=== PATIENT | female | born 1935 | race Caucasian/White ===

== ENCOUNTER 2018-09-15 01:44 | Outpatient (CLI) | payer MEDICARE, SELFPAY ==
[2018-09-15 07:38] LABS: Hemoglobin A1C 10.7 % (4.5-6.2)
[2018-09-15 07:53] LABS: Microalb ug/mg Crea 15.8 ug/mg Cr
== END 2018-09-15 02:04 ==
PROVIDERS: PCP Family Medicine; Visit Provider Family Medicine
DX: E11.9 Type 2 diabetes mellitus without complications (principal)
CPT/HCPCS: 36415; 82043; 82570; 83036

== ENCOUNTER 2019-01-22 10:18 | Outpatient (CLI) | payer MEDICARE, SELFPAY ==
[2019-01-22 12:20] LABS: Hemoglobin A1C 11.6 % (4.5-6.2)
[2019-01-22 12:50] LABS: Anion Gap 8.3 mmol/L (3-11); BUN 18 mg/dL (7-18); CO2 30.7 mmol/L (21.0-32.0); CREATININE 0.83 mg/dL (0.55-1.02); Calcium 9.2 mg/dL (8.5-10.1); Chloride 100 mmol/L (98-107); Glucose 227 mg/dL (70-100); Potassium 4.7 mmol/L (3.5-5.1); Sodium 139 mmol/L (136-145)
== END 2019-01-22 10:38 ==
PROVIDERS: PCP Family Medicine; Visit Provider Family Medicine
DX: R73.9 Hyperglycemia, unspecified (principal); I10 Essential (primary) hypertension
CPT/HCPCS: 36415; 80048; 83036

== ENCOUNTER 2019-05-13 01:44 | Outpatient (CLI) | payer MEDICARE, SELFPAY ==
[2019-05-13 08:18] LABS: Hemoglobin A1C 11.6 % (4.5-6.2)
== END 2019-05-13 02:04 ==
PROVIDERS: PCP Family Medicine; Visit Provider Family Medicine
DX: E11.9 Type 2 diabetes mellitus without complications (principal)
CPT/HCPCS: 36415; 83036

== ENCOUNTER 2019-08-15 09:32 | Emergency (ER) | payer MEDICARE, SELFPAY ==
[2019-08-15] VITALS (33 sets, daily range): BP systolic 97–145; BP diastolic 43–109; PULSE 43–75; RESP 12–21; TEMP 36.7; O2SAT 94–98
--- NOTE | 2019-08-15 10:03 | ED.GENADUL_ITS ---
Discharge Plan Disposition Patient Disposition: [facility] INPATIENT Condition: Serious Discharge Details Chief Complaint: Dizzy/Sync Clinical Impression: Sinus node dysfunction, Symptomatic bradycardia, Hypomagnesemia Primary Care Provider: Larry Moulton ED Provider: Larry Willoughby Home Meds and New Rx's Prescriptions: No Action (DME) blood-glucose meter [OneTouch Ultra2 Meter] kit See Dose Instructions .ROUTE .MEDSUPPLY Qty: 1 RF: 0 metformin 1,000 mg tablet 1,000 mg PO BID Qty: 180 RF: 4 (DME) lancets [Prodigy Lancets] 1 EACH misc 1 ea Miscellaneous BID Qty: 100 RF: 6 (DME) lancets [OneTouch Delica Lancets] 1 EACH misc 1 ea Miscellaneous BID Qty: 100 RF: 4 (DME) OneTouch Ultra Test strip 1 ea Miscellaneous BID Qty: 100 RF: 4 simvastatin [Zocor] 40 mg tablet 40 mg PO DAILY Qty: 90 RF: 4 paroxetine HCl [Paxil] 20 mg tablet 20 mg PO DAILY Qty: 90 RF: 4 naproxen sodium [Aleve] 220 MG tablet 1 tab PO BID PRN PRNQty: 0 RF: 0 albuterol sulfate [Ventolin HFA] 60 PUFF HFA aerosol inhaler 2 puff Inhalation Q4H PRN PRNQty: 1 RF: 0 lorazepam 0.5 MG tablet 0.5 mg PO BID PRN PRN (Reason: Anxiety) Qty: 3 RF: 0 Medical Decision Making 10:08 --84-year-old female with multiple medical problems presents after brief episode of unprovoked shortness of breath that has since resolved and then sensation of abnormal heartbeat here in the emergency department. Patient is currently hemodynamically stable and without complaint. Screening ECG was reviewed and interpreted by me: Sinus rhythm with a first- degree AV block, AZ interval 252, normal axis, no STEMI, nondiagnostic. black leather buffer rhythm strip from symptomatic episode was reviewed and interpreted by me: P waves C's, suspect SA brian dysfunction, slightly wider QRS complex noted at a rate of 42bpm -suspect junctional escape rhythm, and then return of normal sinus rhythm shortly thereafter at a rate of 60bpm. Plan to check labs to assess thyroid and for electrolyte abnormalities. Pacer pads have been placed on the patient. --Chest x-ray was reviewed and interpreted by radiology: Opacity in the medial right base may represent atelectasis or pneumonia. Patient is afebrile, has no cough and no leukocytosis. I do not believe she has pneumonia. --I spoke with Dr. Beal -discussed ED presentation and course, he will admit the patient. HPI General Mode of arrival: ambulatory . Date/Time Provider Initiated Documentation: 08/15/19 09:33 . Limitations to Documentation: no limitations . Information obtained by: patient . HPI Narrative: 84yo f with history of diabetes, hypertension, note of ventricular arrhythmia in the past, heart murmur, anemia, asthma, history of CVA, osteoarthritis, here with chief complaint of shortness of breath. Patient notes that she suddenly felt short of breath while at rest. This occurred just prior to arrival. Symptoms were severe. She notes she sat down on her porch and symptoms improved. She had no associated chest pain during the episode. She does note that yesterday she felt nauseous at one point while on a bus. That episode resolved and she was feeling well last night and earlier this morning. She is asymptomatic at this time although does note that when she first got here she experienced an odd sensation in her chest like her heart was not going to beat - this episode was captured on gaming table operator by nursing. Patient is currently asymptomatic and feels well. Related Data Home Medications Medication Instructions Recorded Confirmed naproxen sodium [Aleve] 1 tab PO BID PRN PRN #0 11/30/13 08/15/19 albuterol sulfate [Ventolin HFA] 2 puff INHALATION Q4H PRN PRN #1 04/25/14 08/15/19 inh lancets [Prodigy Lancets] #100 ea 08/17/15 06/26/19 lancets [Onetouch Delica] #100 ea 03/22/16 06/26/19 lorazepam 0.5 mg PO BID PRN PRN #3 tab 05/29/16 08/15/19 metformin 1,000 mg tablet 1,000 mg PO BID #180 tab-cap 09/19/18 08/15/19 blood-glucose meter #1 each 01/22/19 06/26/19 blood sugar diagnostic #100 strip 03/04/19 06/26/19 paroxetine HCl 20 mg tablet 20 mg PO DAILY #90 tab 05/05/19 08/15/19 simvastatin 40 mg tablet 40 mg PO DAILY #90 tab 05/05/19 08/15/19 Previous Rx's Medication Instructions Recorded naproxen sodium [Aleve] 1 tab PO BID PRN PRN #0 11/30/13 albuterol sulfate [Ventolin HFA] 2 puff INHALATION Q4H PRN PRN #1 04/25/14 inh lorazepam 0.5 mg PO BID PRN PRN #3 tab 05/29/16 metformin 1,000 mg tablet 1,000 mg PO BID #180 tab-cap 09/19/18 blood-glucose meter #1 each 01/22/19 blood sugar diagnostic #100 strip 03/04/19 paroxetine HCl 20 mg tablet 20 mg PO DAILY #90 tab 05/05/19 simvastatin 40 mg tablet 40 mg PO DAILY #90 tab 05/05/19 Allergies Allergy/AdvReac Type Severity Reaction Status Date / Time iodine Allergy Unknown Unverified 08/15/19 09:40 General Stated Complaint: Dizzy/Sync RASHEL: 3 Review of Systems Review of Systems ROS Unobtainable: All systems reviewed & are unremarkable except as noted in HPI and below Constitutional Constitutional: Denies body ache(s) and Denies fever(s) Cardiovascular Cardiovascular: Reports as per HPI, Denies rapid heart rate and Denies leg edema Respiratory Respiratory: Reports as per HPI and Denies cough PFSH Medical History Rupture of tendon of biceps, long head (Resolved 10/31/07) Surgical History Abdominal hysterectomy Bilateral salpingectomy with oophorectomy Biopsy of breast (~2003) left;neg Cholecystectomy History of bilateral salpingo-oophorectomy (Inactive) History of Surgical Procedure (Inactive) a. Cholecystectomy. b. Lysis of adhesions. c. Hysterectomy. d. Oophorectomy. Status post abdominal hysterectomy (Inactive) Status post breast biopsy (Inactive) Status post cholecystectomy (Inactive) Social History Smoking/Tobacco Use Status: Former Tobacco Use Alcohol Intake: never Drug use: Never Do you feel safe at home: Yes Exam Const General: cooperative and no acute distress HENMT Mouth: moist mucous membranes Eyes Conjunctivae: normal conjunctivae Sclera: normal sclerae Neck Neck: trachea midline, supple and no JVD Resp Auscultation: clear to auscultation bilaterally, no rales, no rhonchi and no wheezes Cardio Jugular venous pressure: no JVD Rate: regular rate and not tachycardic Rhythm: regular rhythm Heart Sounds: murmur systolic II/ GI Palpation: soft, not firm, no guarding, no masses, not rigid and nontender Skin General skin exam: no rashes or lesions noted Neuro General: alert, awake, oriented x3 and tone normal Extrem General: no calf tenderness bilaterally and no edema Psych Appearance: grossly normal Mental Status: mental status grossly normal Course Vital Signs Vital signs: Vital Signs Temperature 36.7 C 08/15/19 09:33 Pulse 75 08/15/19 09:33 Respiratory Rate 21 08/15/19 09:33 Blood Pressure 144/59 H 08/15/19 09:33 Pulse Oximetry 97 08/15/19 09:33 Temperature 36.7 C 08/15/19 09:33 Temperature Source Skin 08/15/19 09:33 Pulse 75 08/15/19 09:33 Respiratory Rate 21 08/15/19 09:33 Respiratory Effort 08/15/19 09:42 Blood Pressure 144/59 H 08/15/19 09:33 Blood Pressure Position Supine 08/15/19 09:33 Pulse Oximetry 97 08/15/19 09:33 Oxygen Delivery Method Room Air 08/15/19 09:33 Oxygen Flow Rate 0 08/15/19 09:33 Pain Level 0 08/15/19 09:33
[2019-08-15 10:22] LABS: Abs Immature Grans 0.02 k/cumm (0.0-0.09); Absolute Basophil Count 0.04 k/cumm (0.0-0.2); Absolute Eosinophil Count 0.15 k/cumm (0.0-0.7); Absolute Monocyte Count 0.43 k/cumm (0.11-0.7); Absolute Neutrophil Count 7.61 k/cumm (1.2-6.7); Basophils % 0.4; Eosinophils % 1.4; HCT 37.3 % (36.0-46.0); HGB 12.2 g/dL (12.0-15.5); Immature Grans % 0.2; Lymphocytes % 21.1; Mean Corp. HGB Concentration 32.7 g/dL (32.0-36.0); Mean Corpuscular Hemoglobin 28.6 pg (27.0-33.0); Mean Corpuscular Volume 87.6 fL (80-95); Mean Platelet Volume 9.6 fL (8.0-11.0); Monocytes % 4.1; Neutrophils % 72.8; Platelet Count 267 x1000/uL (130-400); RBC 4.26 m/cumm (4.00-5.20); RBC Distribution Width 13.8 % (11.7-14.6); White Blood Cell Count 10.45 k/cumm (4.4-10.8)
--- NOTE | 2019-08-15 10:27 | NUR.NOTE ---
10:10 patient goingin and out of junctional rhythm with heartrate dropping in the 40s. Patient is having dizziness and shortness of breath with these rhythm changes. Moved to room 1 and placed on external pacer as ordered.
[2019-08-15 10:44] LABS: ALT 19 U/L (14-59); AST 18 U/L (15-37); Albumin 3.5 g/dL (3.4-5.0); Alkaline Phosphatase 81 U/L (46-116); Anion Gap 9.8 mmol/L (3-11); BUN 21 mg/dL (7-18); Bilirubin, Total 0.3 mg/dL (0.2-1.0); CO2 26.2 mmol/L (21.0-32.0); CREATININE 1.04 mg/dL (0.55-1.02); Calcium 8.9 mg/dL (8.5-10.1); Chloride 100 mmol/L (98-107); Estimated GFR 50.73 (mL/min/1.73m2); Glucose 339 mg/dL (70-100); Magnesium 1.6 mg/dL (1.8-2.4); Potassium 4.6 mmol/L (3.5-5.1); Sodium 136 mmol/L (136-145); TSH (W/Ref FT4) 3.55 uIU/mL (0.36-3.74)
[2019-08-15 10:50] LABS: Troponin I < 0.05 ng/mL (0.00-0.06)
--- NOTE | 2019-08-15 11:20 | DI.RAD_ITS ---
SYMPTOM/DIAGNOSIS: SOB PORTABLE AP CHEST: A region of increased density in the right medial lung base could represent atelectasis or pneumonia. There is no evidence of a pneumothorax or pleural effusion. The heart is enlarged. The osseous structures are stable. Note is made of overlying EKG wires. IMPRESSION: An opacity in the medial right base could represent atelectasis or pneumonia.
[2019-08-15] MEDS: MAGNESIUM SULFATE 1 GM/100 ML BAG IVPB (11:31)
[2019-08-15] MEDS: Normal Saline Flush 10 ML SYR IVP (11:31)
--- NOTE | 2019-08-15 11:50 | DI.VRAD_ITS ---
EXAM: XR Chest, 1 View EXAM DATE/TIME: 08/15/2019 11:25 AM CLINICAL HISTORY: 84 years old, female; Shortness of breath TECHNIQUE: Imaging protocol: XR of the chest Views: 1 view. COMPARISON: CR CHEST 2 VIEWS PA,LAT 05/29/2016 9:34 AM FINDINGS: Lungs: Opacity in the medial right base may represent atelectasis or pneumonia. Pleural space: Unremarkable. No pleural effusion. No pneumothorax. Heart/Mediastinum: Cardiomegaly Bones/joints: Osseous structures are stable Other findings: Overlying EKG wires IMPRESSION: Opacity in the medial right base may represent atelectasis or pneumonia. Dictated and Authenticated by: Luis Olivares MD. Ordering:FREDA Juarez MD
== END 2019-08-15 17:55 | disposition left against medical advice (07) ==
PROVIDERS: Emergency Provider Student in an Organized Health Care Education/Training Program; PCP Family Medicine
DX: I49.2 Junctional premature depolarization (principal); E83.42 Hypomagnesemia; R06.02 Shortness of breath; E11.9 Type 2 diabetes mellitus without complications; Z79.84 Long term (current) use of oral hypoglycemic drugs; I10 Essential (primary) hypertension
CPT/HCPCS: 36415; 80053; 93005; 96365; 99285; 71045; 83735; 83880; 84443; 84484; 85025; 93010; J3475

== ENCOUNTER 2019-08-15 15:17 | Emergency (ER) | payer MEDICARE, SELFPAY ==
[2019-08-15] VITALS (29 sets, daily range): BP systolic 115–200; BP diastolic 52–97; PULSE 51–82; RESP 14–31; TEMP 36.3; O2SAT 95–98
--- NOTE | 2019-08-15 15:36 | ED.GENADUL_ITS ---
Discharge Plan Disposition Patient Disposition: RADHA DOMINGUEZ ([facility]) Condition: Stable Discharge Details Chief Complaint: Dizzy/Sync Clinical Impression: Dizziness, Vomiting, Symptomatic bradycardia Primary Care Provider: Larry Moulton ED Provider: Camila Singh Home Meds and New Rx's Prescriptions: No Action (DME) blood-glucose meter [OneTouch Ultra2 Meter] kit See Dose Instructions .ROUTE .MEDSUPPLY Qty: 1 RF: 0 metformin 1,000 mg tablet 1,000 mg PO BID Qty: 180 RF: 4 (DME) lancets [Prodigy Lancets] 1 EACH misc 1 ea Miscellaneous BID Qty: 100 RF: 6 (DME) lancets [OneTouch Delica Lancets] 1 EACH misc 1 ea Miscellaneous BID Qty: 100 RF: 4 (DME) OneTouch Ultra Test strip 1 ea Miscellaneous BID Qty: 100 RF: 4 simvastatin [Zocor] 40 mg tablet 40 mg PO DAILY Qty: 90 RF: 4 paroxetine HCl [Paxil] 20 mg tablet 20 mg PO DAILY Qty: 90 RF: 4 naproxen sodium [Aleve] 220 MG tablet 1 tab PO BID PRN PRNQty: 0 RF: 0 albuterol sulfate [Ventolin HFA] 60 PUFF HFA aerosol inhaler 2 puff Inhalation Q4H PRN PRNQty: 1 RF: 0 lorazepam 0.5 MG tablet 0.5 mg PO BID PRN PRN (Reason: Anxiety) Qty: 3 RF: 0 Discharge Data Discharge Date/Time-TO BE ENTERED AT DEPARTURE: 08/15/19 19:55 Medical Decision Making 84-year-old female with a history of diabetes, hypertension CVA, asthma, depression who presents as a return to the emergency department after she left AMA earlier today after she was admitted for what appeared to be a junctional escape rhythm on EKG and symptomatic bradycardia. She returned home this afternoon and admits to worsening dizziness, nausea and dry heaving. EKG on arrival notes a rate of 81, sinus with no acute ST ischemic changes. She had a symptomatic episode in the ER earlier today which was caught on the monitor which note a likely sinus node dysfunction with a wide QRS and a rate of 42. A junctional escape rhythm was suspected at that time. She felt better and wanted to go home and left AMA. Blood pressure 200/86, heart rate 80s, afebrile. She appears nontoxic. She has a systolic murmur, lungs clear. Will repeat labs and call hospitalist for admission. Chest x-ray done earlier today noted atelectasis or pneumonia. She has no fever, cough or shortness of breath so doubt pneumonia. Case discussed with Dr. Beal - he states per his discussion with cardiology earlier, if patient's symptoms returned, would recommend transfer to [facility] - he discussed case with Dr. Sylvester at [facility] and he accepts pt for transfer to [facility]. 1720 --labs reviewed. White blood cell count 12. Normal electrolytes. Anion gap 13. Glucose 291. Troponin negative. BNP 434. [facility] called to state they have a bed available for patient. We will plan for EMS to have pacer implants in place and to give atropine if needed in route. Patient has remained stable here while in the emergency department. Heart rate ranged between 50s to 70s. Medical Records Medical records reviewed: Yes I reviewed the patient's medical records. Lab Data Lab results reviewed: Yes I reviewed the patient's lab results. Labs: Laboratory Tests Range/Units 08/15/19 08/15/19 08/15/19 15:31 15:31 15:31 WBC (4.4-10.8) k/cumm 12.26 H RBC (4.00-5.20) m/cumm 4.80 Hgb (12.0-15.5) g/dL 13.6 Hct (36.0-46.0) % 41.3 MCV (80-95) fL 86.0 MCH (27.0-33.0) pg 28.3 MCHC (32.0-36.0) g/dL 32.9 RDW (11.7-14.6) % 13.9 Plt Count (130-400) x1000/uL 284 MPV (8.0-11.0) fL 9.2 Immature Gran % 0.2 Neutrophils % 66.4 Lymphocytes % 27.5 Monocytes % 4.9 Eosinophils % 0.8 Basophils % 0.2 Absolute Neutrophils (1.2-6.7) k/cumm 8.14 H Absolute Lymphocytes (1.2-3.4) k/cumm 3.37 Absolute Monocytes (0.11-0.7) k/cumm 0.60 Absolute Eosinophils (0.0-0.7) k/cumm 0.10 Absolute Basophils (0.0-0.2) k/cumm 0.02 Sodium (136-145) mmol/L 134 L Potassium (3.5-5.1) mmol/L 4.0 Chloride (98-107) mmol/L 96 L Carbon Dioxide (21.0-32.0) mmol/L 24.7 Anion Gap (3-11) mmol/L 13.3 H BUN (7-18) mg/dL 18 Creatinine (0.55-1.02) mg/dL 0.98 Estimated GFR/1.73 m2 (mL/min/1.73m2) 54.33 Glucose (70-100) mg/dL 291 H Calcium (8.5-10.1) mg/dL 9.5 Magnesium (1.8-2.4) mg/dL 2.0 Total Bilirubin (0.2-1.0) mg/dL 0.5 AST (15-37) U/L 20 ALT (14-59) U/L 23 Alkaline Phosphatase (46-116) U/L 85 Troponin I (0.00-0.06) ng/mL < 0.05 NT-Pro-B Natriuret Pep ( - 299) pg/mL 434 H Total Protein (6.4-8.2) g/dL 7.9 Albumin (3.4-5.0) g/dL 4.1 ECG Data Attestation: I personally reviewed and interpreted this ECG (s) as follows: Interpretation: rate of 81, sinus, first degree block CT 220, no acute ST elevation or depression, QTc 441, QRS 102. HPI General Mode of arrival: ambulatory . Date/Time Provider Initiated Documentation: 08/15/19 15:32 . Limitations to Documentation: no limitations . Information obtained by: patient . HPI Narrative: Pt is an 84yo F w/ a h/o DM, HTN, depression, HTN, arrhythmia, panic attacks who presents with dizziness and nausea since this afternoon. Patient was seen here earlier today for dizziness and admitted for a symptomatic bradycardia with concern due to a junctional escape rhythm on the monitor. She denies chest pain, shortness of breath, fever, cough, headache. She left AMA earlier and returned home and states she sat on the couch and her dizziness became much worse and she began having nausea and dry heaving. Related Data Home Medications Medication Instructions Recorded Confirmed naproxen sodium [Aleve] 1 tab PO BID PRN PRN #0 11/30/13 08/15/19 albuterol sulfate [Ventolin HFA] 2 puff INHALATION Q4H PRN PRN #1 04/25/14 08/15/19 inh lancets [Prodigy Lancets] #100 ea 08/17/15 06/26/19 lancets [Onetouch Delica] #100 ea 03/22/16 06/26/19 lorazepam 0.5 mg PO BID PRN PRN #3 tab 05/29/16 08/15/19 metformin 1,000 mg tablet 1,000 mg PO BID #180 tab-cap 09/19/18 08/15/19 blood-glucose meter #1 each 01/22/19 06/26/19 blood sugar diagnostic #100 strip 03/04/19 06/26/19 paroxetine HCl 20 mg tablet 20 mg PO DAILY #90 tab 05/05/19 08/15/19 simvastatin 40 mg tablet 40 mg PO DAILY #90 tab 05/05/19 08/15/19 Previous Rx's Medication Instructions Recorded naproxen sodium [Aleve] 1 tab PO BID PRN PRN #0 11/30/13 albuterol sulfate [Ventolin HFA] 2 puff INHALATION Q4H PRN PRN #1 04/25/14 inh lorazepam 0.5 mg PO BID PRN PRN #3 tab 05/29/16 metformin 1,000 mg tablet 1,000 mg PO BID #180 tab-cap 09/19/18 blood-glucose meter #1 each 01/22/19 blood sugar diagnostic #100 strip 03/04/19 paroxetine HCl 20 mg tablet 20 mg PO DAILY #90 tab 05/05/19 simvastatin 40 mg tablet 40 mg PO DAILY #90 tab 05/05/19 Allergies Allergy/AdvReac Type Severity Reaction Status Date / Time iodine Allergy Unknown Unverified 08/15/19 09:40 General Stated Complaint: Dizzy/Sync RASHEL: 2 Review of Systems Review of Systems ROS Unobtainable: All systems reviewed & are unremarkable except as noted in HPI and below Constitutional Constitutional: Reports as per HPI, Denies chills and Denies fever(s) Eyes Eyes: Denies blurry vision ENT Ears, Nose, Mouth, and Throat: Reports dizziness, Denies sore throat and Denies throat swelling Cardiovascular Cardiovascular: Denies chest pain and Denies dyspnea Respiratory Respiratory: Denies cough and Denies dyspnea Gastrointestinal Gastrointestinal: Denies abdominal pain, Denies diarrhea, Reports nausea and Denies vomiting Genitourinary Genitourinary: Denies hematuria and Denies dysuria Musculoskeletal Musculoskeletal: Denies back pain and Denies numbness Integumentary/Breasts Skin/Breast: Denies lesions and Denies rash Neurologic Neurologic: Reports dizziness, Denies focal weakness and Denies numbness Allergic/Immunologic Allergic/Immunologic: Denies throat swelling [facility] Medical History Rupture of tendon of biceps, long head (Resolved 10/31/07) Surgical History Abdominal hysterectomy Bilateral salpingectomy with oophorectomy Biopsy of breast (~2003) left;neg Cholecystectomy History of bilateral salpingo-oophorectomy (Inactive) History of Surgical Procedure (Inactive) a. Cholecystectomy. b. Lysis of adhesions. c. Hysterectomy. d. Oophorectomy. Status post abdominal hysterectomy (Inactive) Status post breast biopsy (Inactive) Status post cholecystectomy (Inactive) Social History Smoking/Tobacco Use Status: Former Tobacco Use Alcohol Intake: never Drug use: Never Do you feel safe at home: Yes Exam Const General: cooperative, healthy appearing and no acute distress HENPA Head: normal to inspection Face and sinus: normal facial exam Eyes General: appearance normal, both eyes and all related structures Pupils: PERRL EOM: EOM intact bilaterally Neck Neck: normal visual inspection and No submandibular swelling Lymphatic: no lymphadenopathy noted Chest Chest: normal inspection of the chest and no tenderness Resp Effort & Inspection: normal respiratory effort and able to speak in complete sentences Auscultation: clear to auscultation bilaterally Cardio Rate: regular rate Rhythm: regular rhythm Heart Sounds: murmur GI Inspection: normal to inspection Palpation: soft, not firm, not rigid and nontender Auscultation: normal bowel sounds Back/Spine/Pelvis Thoracic/Lumbar Spine: thoracic and lumbar spine normal to inspection Pelvis: no pain with anterior-posterior compression Skin General skin exam: no rashes or lesions noted Neuro General: alert, awake and oriented x3 Cognition: normal cognition Speech: speech normal Motor: muscle tone normal throughout Sensory Exam: no sensory deficits noted Extrem General: normal to inspection, full ROM, normal capillary refill, no calf tenderness bilaterally and no edema Psych Appearance: grossly normal Mental Status: mental status grossly normal Speech and Movement: speech and movement normal Affect: normal affect Course Vital Signs Vital signs: Vital Signs Temperature 97.3 F L 08/15/19 15:22 Pulse 82 08/15/19 15:22 Respiratory Rate 16 08/15/19 15:22 Blood Pressure 200/86 H 08/15/19 15:22 Pulse Oximetry 98 08/15/19 15:22 Temperature 97.3 F L 08/15/19 15:22 Temperature Source Skin 08/15/19 15:22 Pulse 82 08/15/19 15:22 Respiratory Rate 16 08/15/19 15:22 Respiratory Effort Non-Labored 08/15/19 15:32 Blood Pressure 200/86 H 08/15/19 15:22 Blood Pressure Position Supine 08/15/19 15:22 Pulse Oximetry 98 08/15/19 15:22 Oxygen Delivery Method Room Air 08/15/19 15:22 Oxygen Flow Rate 0 08/15/19 15:22
[2019-08-15 15:59] LABS: Abs Immature Grans 0.03 k/cumm (0.0-0.09); Absolute Lymphocyte Count 3.37 k/cumm (1.2-3.4); Basophils % 0.2; Eosinophils % 0.8; HCT 41.3 % (36.0-46.0); HGB 13.6 g/dL (12.0-15.5); Immature Grans % 0.2; Lymphocytes % 27.5; Mean Corp. HGB Concentration 32.9 g/dL (32.0-36.0); Mean Corpuscular Hemoglobin 28.3 pg (27.0-33.0); Mean Platelet Volume 9.2 fL (8.0-11.0); Monocytes % 4.9; Neutrophils % 66.4; Platelet Count 284 x1000/uL (130-400); RBC Distribution Width 13.9 % (11.7-14.6); White Blood Cell Count 12.26 k/cumm (4.4-10.8)
--- NOTE | 2019-08-15 16:00 | NUR.NOTE ---
Nursing Note: Admitting MD at bedside to assess patient.
[2019-08-15 16:04] LABS: Absolute Basophil Count 0.02 k/cumm (0.0-0.2); Absolute Neutrophil Count 8.14 k/cumm (1.2-6.7)
[2019-08-15 16:12] LABS: ALT 23 U/L (14-59); AST 20 U/L (15-37); Albumin 4.1 g/dL (3.4-5.0); Alkaline Phosphatase 85 U/L (46-116); BUN 18 mg/dL (7-18); Bilirubin, Total 0.5 mg/dL (0.2-1.0); CREATININE 0.98 mg/dL (0.55-1.02); Calcium 9.5 mg/dL (8.5-10.1); Estimated GFR 54.33 (mL/min/1.73m2); Glucose 291 mg/dL (70-100); Total Protein 7.9 g/dL (6.4-8.2)
[2019-08-15 16:18] LABS: Troponin I < 0.05 ng/mL (0.00-0.06)
[2019-08-15 16:22] LABS: NT-proBNP 434 pg/mL
[2019-08-15 16:26] LABS: Anion Gap 13.3 mmol/L (3-11); CO2 24.7 mmol/L (21.0-32.0); Chloride 96 mmol/L (98-107); Sodium 134 mmol/L (136-145)
== END 2019-08-15 19:55 | disposition short-term general hospital (02) ==
PROVIDERS: Emergency Provider Physician Assistant; PCP Family Medicine
DX: R42 Dizziness and giddiness (principal); R11.2 Nausea with vomiting, unspecified; I49.9 Cardiac arrhythmia, unspecified; E11.9 Type 2 diabetes mellitus without complications; Z79.84 Long term (current) use of oral hypoglycemic drugs; I10 Essential (primary) hypertension
CPT/HCPCS: 36415; 80053; 93005; 99285; 83735; 83880; 84484; 85025; 93010

== ENCOUNTER 2019-08-23 17:29 | Emergency (ER) | payer MEDICARE, SELFPAY ==
[2019-08-23] VITALS (45 sets, daily range): BP systolic 99–123; BP diastolic 37–54; PULSE 58–76; RESP 9–23; TEMP 36.6; O2SAT 93–98
[2019-08-23 18:05] LABS: Abs Immature Grans 0.02 k/cumm (0.0-0.09); Absolute Basophil Count 0.03 k/cumm (0.0-0.2); Absolute Eosinophil Count 0.23 k/cumm (0.0-0.7); Absolute Lymphocyte Count 3.46 k/cumm (1.2-3.4); Absolute Monocyte Count 0.84 k/cumm (0.11-0.7); Absolute Neutrophil Count 7.96 k/cumm (1.2-6.7); Basophils % 0.2; Eosinophils % 1.8; HCT 35.4 % (36.0-46.0); HGB 11.7 g/dL (12.0-15.5); Immature Grans % 0.2; Lymphocytes % 27.6; Mean Corp. HGB Concentration 33.1 g/dL (32.0-36.0); Mean Corpuscular Hemoglobin 28.4 pg (27.0-33.0); Mean Corpuscular Volume 85.9 fL (80-95); Mean Platelet Volume 9.2 fL (8.0-11.0); Monocytes % 6.7; Neutrophils % 63.5; Platelet Count 264 x1000/uL (130-400); RBC 4.12 m/cumm (4.00-5.20); RBC Distribution Width 13.7 % (11.7-14.6); White Blood Cell Count 12.53 k/cumm (4.4-10.8)
--- NOTE | 2019-08-23 18:07 | ED.GENADUL_ITS ---
Discharge Plan Disposition Patient Disposition: HOME Condition: Stable Discharge Details Chief Complaint: Dizzy/Sync Clinical Impression: Atypical chest pain, Shortness of breath, Vertigo Primary Care Provider: Larry Moulton ED Provider: Karan Ferrell Home Meds and New Rx's Prescriptions: No Action (DME) blood-glucose meter [OneTouch Ultra2 Meter] kit See Dose Instructions .ROUTE .MEDSUPPLY Qty: 1 RF: 0 metformin 1,000 mg tablet 1,000 mg PO BID Qty: 180 RF: 4 (DME) lancets [Prodigy Lancets] 1 EACH misc 1 ea Miscellaneous BID Qty: 100 RF: 6 (DME) lancets [OneTouch Delica Lancets] 1 EACH misc 1 ea Miscellaneous BID Qty: 100 RF: 4 (DME) OneTouch Ultra Test strip 1 ea Miscellaneous BID Qty: 100 RF: 4 simvastatin [Zocor] 40 mg tablet 40 mg PO DAILY Qty: 90 RF: 4 paroxetine HCl [Paxil] 20 mg tablet 20 mg PO DAILY Qty: 90 RF: 4 naproxen sodium [Aleve] 220 MG tablet 1 tab PO BID PRN PRNQty: 0 RF: 0 albuterol sulfate [Ventolin HFA] 60 PUFF HFA aerosol inhaler 2 puff Inhalation Q4H PRN PRNQty: 1 RF: 0 lorazepam 0.5 MG tablet 0.5 mg PO BID PRN PRN (Reason: Anxiety) Qty: 3 RF: 0 Discharge Instructions Instructions: Chest Pain (ED), Vertigo (ED), Dyspnea (ED) Additional Instructions: Drink plenty of fluids and get plenty of rest. Follow-up with your primary care doctor this week for results of your blood cultures. Return immediately to the emergency department if you develop any fever, cough, abdominal pain or any other concerns. Discharge Data Discharge Physician: Camila Singh Medical Decision Making <Camila Singh DO - Last Filed: 08/23/19 20:35> 1820 -- 84-year-old female with history of diabetes, hypertension, depression, CVA, panic attacks who presents with 2 episodes of chest pain, shortness of breath and dizziness that last approximate 10 minutes and then resolved. She describes it as a spinning sensation. Patient was seen here last week for similar complaints and was transferred to [facility] [[email or web address]] for symptomatic bradycardia when she was found to have a possible heart block and junctional escape rhythm. DC summary from her [facility] [email or web address]] visit noted that she had no signs of bradycardia and only one episode of lightheadedness and was discharged home. She did have blood cultures which grew 1/4 with gram-positive bacilli in anaerobic bottle which was thought to be contamination. She also had an echo which noted a large mass and a follow-up cardiac MRI which did not see a mass present and was thought to be epicardial fat. EKG on arrival notes a rate of 69, sinus, first-degree block, less than [address] depression seen in 2, V3 through V6 which appears similar to previous EKG, no acute ST elevation.. No focal deficits on exam. Differential diagnosis includes arrhythmia, electrolyte abnormality, dehydration, UTI, pneumonia, vertigo, ACS. Due to patient's age and history, screening labs, chest x-ray and CT head ordered. Will give small bolus IV fluids and dose of meclizine. Labs and imaging reviewed. Troponin negative. Normal BNP. Urinalysis negative for infection. CT head and chest x-ray negative. 1999 --Case endorsed to Dr. Ferrell to follow-up on repeat troponin. Of note, patient's repeat blood cultures from MRI grew Corynebacterium in anaerobic bottle. She has no fever. Her white count is stable at 12. She has no no complaint of cough, abdominal pain, urinary symptoms. We will repeat lactate and blood cultures. If second troponin negative, and patient continues to remain asymptomatic, will plan for discharge home with follow-up with the primary care doctor this week for reevaluation and for follow-up on repeat blood cultures. Medical Records Medical records reviewed: Yes I reviewed the patient's medical records. Imaging Data Radiologic Study: Radiologist's impression: XR Chest, 2 Views Exam date and time: 08/23/2019 6:08 PM Clinical history: 84 years old, female; Other: Chest pain dizziness R/O acute disease TECHNIQUE: Imaging protocol: XR of the chest Views: 2 views. COMPARISON: SC XR PORTABLE CHEST AP 08/15/2019 2:12 PM FINDINGS: Minimal interstitial lung scarring. Mild cardiomegaly. No significant focal consolidation. No significant pleural effusion. Bony structures unremarkable for age. IMPRESSION: No evidence of acute cardiopulmonary disease. CT Head Without Contrast Exam date and time: 08/23/2019 7:19 PM Clinical history: 84 years old, female; Pain; Other: R/O acute CVA memory loss, dizziness, nausea TECHNIQUE: Imaging protocol: Computed tomography of the head without contrast. COMPARISON: CT HEAD WITHOUT CONTRAST 11/27/2013 4:35 PM FINDINGS: No evidence of hemorrhage. No mass effect. No acute intracranial abnormality. Suggestion of a soft tissue mass in the posterior nasopharynx which appears most likely unchanged from the prior examination. Exact etiology of this is uncertain. IMPRESSION: No evidence of acute intracranial process. Lab Data Lab results reviewed: Yes I reviewed the patient's lab results. ECG Data Attestation: I personally reviewed and interpreted this ECG (s) as follows: Interpretation: Rate of 69, sinus, first-degree block. T wave inversion in lead III which has been seen in previous EKG. Less than [address] depression seen in lead II, V4, V5 and V6 which appears similar to previous EKG. No acute ST elevation. <Karan Ferrell MD - Last Filed: 08/23/19 22:23> Pt remains asymptomatic on my exam and is asking to be d/c'd. Pt's lactate normal, second troponin and ecg unchanged. Given improved symptoms and asymptomatic now with negative w/u here will d/c and advised f/u with pcp within a week, return precautions given Lab Data Lab results reviewed: Yes I reviewed the patient's lab results. ECG Data Attestation: I personally reviewed and interpreted this ECG (s) as follows: Prior ECG tracings: available for review Interpretation: 2nd ekg shows sinus rhythm, rate of 64, no acute ischemic changes HPI <Camila Singh DO - Last Filed: 08/23/19 20:35> General Mode of arrival: EMS . Date/Time Provider Initiated Documentation: 08/23/19 17:30 . Limitations to Documentation: no limitations . Information obtained by: patient . HPI Narrative: Patient is an 84-year-old female with a history of diabetes, hypertension, CVA, asthma, and panic attacks who presents the ED with 2 episodes of shortness of breath, dizziness and chest pain that started while at home today this afternoon. Patient states she was sitting when the symptoms started and lasted proximate 10 minutes and then r esolved. She states she feels that the dizziness feels like a spinning sensation that is worse with movement. She also states her mouth was dry. Patient was seen here last week for dizziness, chest pain or shortness of breath and was found to have a possible junctional escape rhythm and was sent to [facility] [[email or web address]] for further evaluation. She states she was discharged home but was not given any diagnosis. Patient denies any fever, cough, vomiting, urinary symptoms. She states she has been eating and drinking well. She does admit to 2 episodes of brown loose diarrhea. Related Data Home Medications Medication Instructions Recorded Confirmed naproxen sodium [Aleve] 1 tab PO BID PRN PRN #0 11/30/13 08/23/19 albuterol sulfate [Ventolin HFA] 2 puff INHALATION Q4H PRN PRN #1 04/25/14 08/23/19 inh lancets [Prodigy Lancets] #100 ea 08/17/15 06/26/19 lancets [Onetouch Delica] #100 ea 03/22/16 06/26/19 lorazepam 0.5 mg PO BID PRN PRN #3 tab 05/29/16 08/23/19 metformin 1,000 mg tablet 1,000 mg PO BID #180 tab-cap 09/19/18 08/23/19 blood-glucose meter #1 each 01/22/19 06/26/19 blood sugar diagnostic #100 strip 03/04/19 06/26/19 paroxetine HCl 20 mg tablet 20 mg PO DAILY #90 tab 05/05/19 08/23/19 simvastatin 40 mg tablet 40 mg PO DAILY #90 tab 05/05/19 08/23/19 Previous Rx's Medication Instructions Recorded naproxen sodium [Aleve] 1 tab PO BID PRN PRN #0 11/30/13 albuterol sulfate [Ventolin HFA] 2 puff INHALATION Q4H PRN PRN #1 04/25/14 inh lorazepam 0.5 mg PO BID PRN PRN #3 tab 05/29/16 metformin 1,000 mg tablet 1,000 mg PO BID #180 tab-cap 09/19/18 blood-glucose meter #1 each 01/22/19 blood sugar diagnostic #100 strip 03/04/19 paroxetine HCl 20 mg tablet 20 mg PO DAILY #90 tab 05/05/19 simvastatin 40 mg tablet 40 mg PO DAILY #90 tab 05/05/19 Allergies Allergy/AdvReac Type Severity Reaction Status Date / Time iodine Allergy Unknown Unverified 08/23/19 18:20 General RASHEL: 2 Review of Systems <Camila Singh DO - Last Filed: 08/23/19 20:35> Review of Systems ROS Unobtainable: All systems reviewed & are unremarkable except as noted in HPI and below Constitutional Constitutional: Reports as per HPI, Denies chills and Denies fever(s) Eyes Eyes: Denies blurry vision ENT Ears, Nose, Mouth, and Throat: Reports dizziness, Denies sore throat and Denies throat swelling Cardiovascular Cardiovascular: Reports chest pain and Reports dyspnea Respiratory Respiratory: Denies cough and Reports dyspnea Gastrointestinal Gastrointestinal: Denies abdominal pain, Denies diarrhea and Denies vomiting Genitourinary Genitourinary: Denies hematuria and Denies dysuria Musculoskeletal Musculoskeletal: Denies back pain and Denies numbness Integumentary/Breasts Skin/Breast: Denies lesions and Denies rash Neurologic Neurologic: Reports dizziness, Denies focal weakness and Denies numbness Allergic/Immunologic Allergic/Immunologic: Denies throat swelling PFSH <Camila Singh DO - Last Filed: 08/23/19 20:35> Medical History Depression (Inactive) Diabetes mellitus (Inactive) Times 3 years. History of CVA (cerebrovascular accident) (Inactive 12/02/91) a. 1991. Osteoarthrosis (Inactive) both hips, right greater than left Osteopenia (Inactive) Panic attack (Inactive) Rupture of tendon of biceps, long head (Resolved 10/31/07) Surgical History Abdominal hysterectomy Bilateral salpingectomy with oophorectomy Biopsy of breast (~2003) left;neg Cholecystectomy History of bilateral salpingo-oophorectomy (Inactive) History of Surgical Procedure (Inactive) a. Cholecystectomy. b. Lysis of adhesions. c. Hysterectomy. d. Oophorectomy. Status post abdominal hysterectomy (Inactive) Status post breast biopsy (Inactive) Status post cholecystectomy (Inactive) Social History Smoking/Tobacco Use Status: Former Tobacco Use Alcohol Intake: never Drug use: Never Do you feel safe at home: Yes Do you feel safe in your relationship?: Yes Exam <Camila Singh DO - Last Filed: 08/23/19 20:35> Const General: cooperative, healthy appearing and no acute distress [facility] Head: normal to inspection Face and sinus: normal facial exam Eyes General: appearance normal, both eyes and all related structures Pupils: PERRL EOM: EOM intact bilaterally Neck Neck: normal visual inspection and No submandibular swelling Lymphatic: no lymphadenopathy noted Chest Chest: normal inspection of the chest and no tenderness Resp Effort & Inspection: normal respiratory effort and able to speak in complete sentences Auscultation: clear to auscultation bilaterally Cardio Rate: regular rate Rhythm: regular rhythm GI Inspection: normal to inspection Palpation: soft, not firm, not rigid and nontender Auscultation: normal bowel sounds Skin General skin exam: no rashes or lesions noted Neuro General: alert, awake and oriented x3 Cranial Nerves: CN's II-XI intact bilaterally Cognition: normal cognition Speech: speech normal Motor: muscle tone normal throughout and strength 5/5 throughout Sensory Exam: no sensory deficits noted Extrem General: normal to inspection, full ROM, normal capillary refill, no calf tenderness bilaterally and no edema Psych Appearance: grossly normal Mental Status: mental status grossly normal Speech and Movement: speech and movement normal Affect: normal affect Course <Camila Singh DO - Last Filed: 08/23/19 20:35> Lab/Test Results Lab/Test Results: Laboratory Tests Range/Units 08/23/19 17:58 WBC (4.4-10.8) k/cumm 12.53 H RBC (4.00-5.20) m/cumm 4.12 Hgb (12.0-15.5) g/dL 11.7 L Hct (36.0-46.0) % 35.4 L MCV (80-95) fL 85.9 MCH (27.0-33.0) pg 28.4 MCHC (32.0-36.0) g/dL 33.1 RDW (11.7-14.6) % 13.7 Plt Count (130-400) x1000/uL 264 MPV (8.0-11.0) fL 9.2 Immature Gran % 0.2 Neutrophils % 63.5 Lymphocytes % 27.6 Monocytes % 6.7 Eosinophils % 1.8 Basophils % 0.2 Absolute Neutrophils (1.2-6.7) k/cumm 7.96 H Absolute Lymphocytes (1.2-3.4) k/cumm 3.46 H Absolute Monocytes (0.11-0.7) k/cumm 0.84 H Absolute Eosinophils (0.0-0.7) k/cumm 0.23 Absolute Basophils (0.0-0.2) k/cumm 0.03 Sign Out <Camila Singh DO - Last Filed: 08/23/19 20:35> Sign Out Data: Sign Out Comment: Follow-up on repeat troponin and EKG. If patient continues to remain asymptomatic, plan is for discharge home with follow-up with primary care doctor. Last updated by Camila Singh DO at 08/23/19 20:37
--- NOTE | 2019-08-23 18:07 | DI.RAD_ITS ---
EXAM: XR CHEST 2V PA LATERAL INDICATION: chest pain, dizziness, r/o acute disease. COMPARISON: XR PORTABLE CHEST AP from 08/15/2019 TECHNIQUE: 2D digital imaging was performed. FINDINGS: There is minimal interstitial lung scarring. The heart is mildly enlarged. There is no evidence of a focal infiltrate. No evidence of a pleural effusion. No acute bony abnormality is seen. IMPRESSION: No evidence of acute cardiopulmonary disease.
[2019-08-23 18:15] LABS: Lactate 1.7 mmol/L (0.6-1.4)
[2019-08-23 18:33] LABS: ALT 19 U/L (14-59); AST 19 U/L (15-37); Albumin 3.4 g/dL (3.4-5.0); Alkaline Phosphatase 83 U/L (46-116); Anion Gap 12.5 mmol/L (3-11); BUN 13 mg/dL (7-18); Bilirubin, Total 0.8 mg/dL (0.2-1.0); CO2 23.5 mmol/L (21.0-32.0); CREATININE 1.12 mg/dL (0.55-1.02); Calcium 8.8 mg/dL (8.5-10.1); Chloride 98 mmol/L (98-107); Estimated GFR 46.57 (mL/min/1.73m2); Glucose 202 mg/dL (70-100); Magnesium 1.7 mg/dL (1.8-2.4); Potassium 3.4 mmol/L (3.5-5.1); Sodium 134 mmol/L (136-145); Total Protein 6.9 g/dL (6.4-8.2)
[2019-08-23 18:37] LABS: NT-proBNP 251 pg/mL
[2019-08-23 18:38] LABS: Troponin I < 0.05 ng/mL (0.00-0.06)
--- NOTE | 2019-08-23 18:55 | DI.CT_ITS ---
EXAM: CT HEAD WO CLINICAL HISTORY: dizziness, nausea, memory loss, r/o acute cva. TECHNIQUE: The exam was performed according to the usual protocol without contrast. COMPARISON: HEAD WITHOUT CONTRAST from 11/27/2013 FINDINGS: There is no evidence of an intra or extra-axial hemorrhage. There is no mass. There is no evidence of a skull fracture. There is suggestion of a soft tissue mass in the posterior nasopharynx which appea rs most likely unchanged when compared with the prior examination. Exact etiology of this finding is uncertain. IMPRESSION: No evidence of an acute intracranial process.
[2019-08-23 19:12] LABS: Bilirubin Negative (Negative); Blood Negative (Negative); Clarity Clear (Clear); Glucose 500 mg/dL (Negative); Ketones Trace mg/dL (Negative); Leukocyte Esterase Negative (Negative); Nitrite Negative (Negative); Specific Gravity <= 1.005 (1.005-1.025); Urobilinogen 0.2 EU/dL (Up TO 0.2); pH 5.5 (5-8)
--- NOTE | 2019-08-23 19:35 | DI.VRAD_ITS ---
PROCEDURE INFORMATION: Exam: CT Head Without Contrast Exam date and time: 08/23/2019 7:19 PM Clinical history: 84 years old, female; Pain; Other: R/O acute CVA memory loss, dizziness, nausea TECHNIQUE: Imaging protocol: Computed tomography of the head without contrast. COMPARISON: CT HEAD WITHOUT CONTRAST 11/27/2013 4:35 PM FINDINGS: No evidence of hemorrhage. No mass effect. No acute intracranial abnormality. Suggestion of a soft tissue mass in the posterior nasopharynx which appears most likely unchanged from the prior examination. Exact etiology of this is uncertain. IMPRESSION: No evidence of acute intracranial process. Dictated and Authenticated by: Mathew Muro MD. Ordering:BRUNO Jensen MD
--- NOTE | 2019-08-23 19:47 | DI.VRAD_ITS ---
PROCEDURE INFORMATION: Exam: XR Chest, 2 Views Exam date and time: 08/23/2019 6:08 PM Clinical history: 84 years old, female; Other: Chest pain dizziness R/O acute disease TECHNIQUE: Imaging protocol: XR of the chest Views: 2 views. COMPARISON: SC XR PORTABLE CHEST AP 08/15/2019 2:12 PM FINDINGS: Minimal interstitial lung scarring. Mild cardiomegaly. No significant focal consolidation. No significant pleural effusion. Bony structures unremarkable for age. IMPRESSION: No evidence of acute cardiopulmonary disease. Dictated and Authenticated by: Mathew Muro MD. Ordering:BRNUO Jensen MD
[2019-08-23 20:48] LABS: Lactate 1.2 mmol/L (0.6-1.4)
[2019-08-23 22:04] LABS: Troponin I < 0.05 ng/mL (0.00-0.06)
== END 2019-08-23 22:50 | disposition home or self-care (01) ==
PROVIDERS: Physician Assistant; Emergency Provider Emergency Medicine; PCP Family Medicine
DX: R07.89 Other chest pain (principal); R06.02 Shortness of breath; R42 Dizziness and giddiness; I44.0 Atrioventricular block, first degree; I10 Essential (primary) hypertension; E11.9 Type 2 diabetes mellitus without complications
CPT/HCPCS: 36415; 80053; 87040; 93005; 99285; 70450; 71046; 81003; 83605; 83735; 83880; 84484; 85025; 93010

== ENCOUNTER 2019-08-25 18:30 | Observation (INO) | payer MEDICARE, SELFPAY ==
[2019-08-25 18:29] VITALS: BP 120/44; PULSE 70; RESP 18; TEMP 36.9; O2SAT 97
--- NOTE | 2019-08-25 18:44 | W.ED.GENAD ---
Discharge Plan Disposition Patient Disposition: [facility] INPATIENT Condition: Stable Discharge Details Chief Complaint: Chest Pain Clinical Impression: Chest pain Admit Date/Time: 08/25/19 20:55 Admit Provider: Joao Byers Attending Provider: Joao Byers Primary Care Provider: Larry Moulton ED Provider: Camila Singh Discharge Data Discharge Date/Time-TO BE ENTERED AT DEPARTURE: 08/25/19 21:28 Medical Decision Making 84-year-old female with history of diabetes, hypertension, obesity, asthma, DVT and PE who presents with chest pain, shortness of breath, nausea and dizziness that started this afternoon after eating lunch. EMS called to report a possible STEMI due to depressions noted in inferior leads which could be consistent with a posterior WV. STEMI alert not called due to depressions noted on EKG with plan to wait for EKG on arrival. Patient admitted to relief of pain after nitro and full dose aspirin. Patient appeared comfortable on arrival. Vitals within normal limits. EKG done upon arrival notes a rate of 71, sinus with questionable less than [address] depression in V3 through V6 which has been seen in previous EKG. Posterior EKG done which does not note any significant acute change. Delay in labs ordered on arrival due to miscommunication. Labs reviewed and noted white blood cell count of 11, potassium 3.2, troponin negative. Normal BNP. Chest x-ray negative for acute findings. Considering patient's history and presentation, will admit for serial troponins observation overnight. Case discussed with hospitalist -accepts patient for admission. Medical Records Medical records reviewed: Yes I reviewed the patient's medical records. Imaging Data Radiologic Study: Radiologist's impression: XR Chest, 1 View Exam date and time: 08/25/2019 7:28 PM Clinical history: 84 years old, female; Chest pain; Type not specified; Prior surgery; Surgery date: 3-7 days post-operative; Surgery type: PT states had surgery last week but does not remember what kind TECHNIQUE: Imaging protocol: XR of the chest Views: 1 view. COMPARISON: CR XR CHEST 2V PA LATERAL 08/23/2019 7:12 PM. 04/24/2014 FINDINGS: Lungs: Again noted is mild elevation of the right hemidiaphragm. There are some adjacent medial right lower lobe opacities that could represent atelectasis. Infection not excluded. Pleural space: No pneumothorax. Heart/Mediastinum: Cardiomegaly and mediastinal prominence are unchanged. There is persist asymmetric right hilar prominence, unchanged from 2014. Bones/joints: Skeletal degenerative changes. IMPRESSION: 1.Again noted is mild elevation of the right hemidiaphragm. There are some adjacent medial right lower lobe opacities that could represent atelectasis. Infection not entirely excluded. Other findings/details as above. Lab Data Lab results reviewed: Yes I reviewed the patient's lab results. Labs: Laboratory Tests Range/Units 08/25/19 08/25/19 08/25/19 19:37 19:37 19:37 WBC (4.4-10.8) k/cumm 11.34 H RBC (4.00-5.20) m/cumm 4.07 Hgb (12.0-15.5) g/dL 11.9 L Hct (36.0-46.0) % 35.3 L MCV (80-95) fL 86.7 MCH (27.0-33.0) pg 29.2 MCHC (32.0-36.0) g/dL 33.7 RDW (11.7-14.6) % 13.8 Plt Count (130-400) x1000/uL 282 MPV (8.0-11.0) fL 8.9 Immature Gran % 0.3 Neutrophils % 59.3 Lymphocytes % 30.6 Monocytes % 7.3 Eosinophils % 2.3 Basophils % 0.2 Absolute Neutrophils (1.2-6.7) k/cumm 6.72 H Absolute Lymphocytes (1.2-3.4) k/cumm 3.47 H Absolute Monocytes (0.11-0.7) k/cumm 0.83 H Absolute Eosinophils (0.0-0.7) k/cumm 0.26 Absolute Basophils (0.0-0.2) k/cumm 0.02 Sodium (136-145) mmol/L 135 L Potassium (3.5-5.1) mmol/L 3.2 L Chloride (98-107) mmol/L 99 Carbon Dioxide (21.0-32.0) mmol/L 24.0 Anion Gap (3-11) mmol/L 12.0 H BUN (7-18) mg/dL 13 Creatinine (0.55-1.02) mg/dL 1.03 H Estimated GFR/1.73 m2 (mL/min/1.73m2) 51.30 Glucose (70-100) mg/dL 204 H Calcium (8.5-10.1) mg/dL 9.0 Magnesium (1.8-2.4) mg/dL 2.2 Total Bilirubin (0.2-1.0) mg/dL 0.5 AST (15-37) U/L 13 L ALT (14-59) U/L 19 Alkaline Phosphatase (46-116) U/L 74 Troponin I (0.00-0.06) ng/mL < 0.05 NT-Pro-B Natriuret Pep ( - 299) pg/mL 184 Total Protein (6.4-8.2) g/dL 6.7 Albumin (3.4-5.0) g/dL 3.4 ECG Data Attestation: I personally reviewed and interpreted this ECG (s) as follows: Interpretation: #1 -- rate of 71, sinus, first-degree block. Less than [address] depression noted in V3 through V6. T wave inversion noted in V2. No acute ST elevation. No significant change from EKG 08/23/19. #2 -- posterior EKG - Rate of 67, sinus, first-degree block. T wave inversion noted in V2 through V5. No acute ST elevation. No significant change from previous EKG. HPI General Mode of arrival: EMS. Date/Time Provider Initiated Documentation: 08/25/19 18:32. Limitations to Documentation: no limitations. Information obtained by: patient. HPI Narrative: Patient is an 84-year-old female with a history of diabetes, hypertension DVT and PE who was recently hospitalized for symptomatic bradycardia with transferred to [facility] who presents with chest pain that started this afternoon while sitting in the lunchroom at home. Patient lives at the [facility]. She states the pain felt pressure-like with radiation to her neck. She admitted to dizziness and shortness of breath with nausea at the time of the chest pain. EMS called to state they were concerned about a STEMI due to depressions noted in inferior leads consistent with a posterior WV. Patient was given nitro and aspirin in route per EMS and admitted to complete relief of her pain. She is only complaining of dizziness at this time. Related Data Home Medications Medication Instructions Recorded Confirmed albuterol sulfate [Ventolin HFA] 2 puff INHALATION Q4H PRN PRN #1 04/25/14 08/29/19 inh lancets [Prodigy Lancets] #100 ea 08/17/15 08/29/19 lancets [OneTouch Delica Lancets] #100 ea 03/22/16 08/29/19 lorazepam 0.5 mg PO BID PRN PRN #3 tab 05/29/16 08/29/19 metformin 1,000 mg tablet 1,000 mg PO BID #180 tab-cap 09/19/18 08/29/19 blood-glucose meter #1 each 01/22/19 08/29/19 blood sugar diagnostic #100 strip 03/04/19 08/29/19 paroxetine HCl 20 mg tablet 20 mg PO DAILY #90 tab 05/05/19 08/29/19 simvastatin 40 mg tablet 40 mg PO DAILY #90 tab 05/05/19 08/29/19 acetaminophen [Tylenol] 650 mg PO Q6H PRN PRN #0 tab 08/26/19 08/29/19 pantoprazole [Protonix] 20 mg PO DAILY #14 tab 08/28/19 08/29/19 Previous Rx's Medication Instructions Recorded albuterol sulfate [Ventolin HFA] 2 puff INHALATION Q4H PRN PRN #1 04/25/14 inh lorazepam 0.5 mg PO BID PRN PRN #3 tab 05/29/16 metformin 1,000 mg tablet 1,000 mg PO BID #180 tab-cap 09/19/18 blood-glucose meter #1 each 01/22/19 blood sugar diagnostic #100 strip 03/04/19 paroxetine HCl 20 mg tablet 20 mg PO DAILY #90 tab 05/05/19 simvastatin 40 mg tablet 40 mg PO DAILY #90 tab 05/05/19 acetaminophen [Tylenol] 650 mg PO Q6H PRN PRN #0 tab 08/26/19 pantoprazole [Protonix] 20 mg PO DAILY #14 tab 08/28/19 Allergies Allergy/AdvReac Type Severity Reaction Status Date / Time iodine Allergy Unknown Unverified 08/29/19 10:35 General Stated Complaint: Chest Pain RASHEL: 2 Review of Systems Review of Systems ROS Unobtainable: All systems reviewed & are unremarkable except as noted in HPI and below Constitutional Constitutional: Reports as per HPI, Denies chills and Denies fever(s) Eyes Eyes: Denies blurry vision ENT Ears, Nose, Mouth, and Throat: Denies dizziness, Denies sore throat and Denies throat swelling Cardiovascular Cardiovascular: Reports chest pain and Denies dyspnea Respiratory Respiratory: Denies cough and Denies dyspnea Gastrointestinal Gastrointestinal: Denies abdominal pain, Denies diarrhea and Denies vomiting Genitourinary Genitourinary: Denies hematuria and Denies dysuria Musculoskeletal Musculoskeletal: Denies back pain and Denies numbness Integumentary/Breasts Skin/Breast: Denies lesions and Denies rash Neurologic Neurologic: Denies dizziness, Denies focal weakness and Denies numbness Allergic/Immunologic Allergic/Immunologic: Denies throat swelling [facility] Medical History Depression (Inactive) Diabetes mellitus (Inactive) Times 3 years. History of CVA (cerebrovascular accident) (Inactive 12/02/91) a. 1991. Osteoarthrosis (Inactive) both hips, right greater than left Osteopenia (Inactive) Panic attack (Inactive) Rupture of tendon of biceps, long head (Resolved 10/31/07) Surgical History Abdominal hysterectomy Bilateral salpingectomy with oophorectomy Biopsy of breast (~2003) left;neg Cholecystectomy History of bilateral salpingo-oophorectomy (Inactive) History of Surgical Procedure (Inactive) a. Cholecystectomy. b. Lysis of adhesions. c. Hysterectomy. d. Oophorectomy. Status post abdominal hysterectomy (Inactive) Status post breast biopsy (Inactive) Status post cholecystectomy (Inactive) Social History Smoking/Tobacco Use Status: Never Alcohol Intake: never Drug use: Never Substance use type: does not use Do you feel safe at home: Yes Do you feel safe in your relationship?: Yes Exam Const General: cooperative, healthy appearing and no acute distress HENMT Head: normal to inspection Face and sinus: normal facial exam Eyes General: appearance normal, both eyes and all related structures EOM: EOM intact bilaterally Neck Neck: normal visual inspection and No submandibular swelling Lymphatic: no lymphadenopathy noted Chest Chest: normal inspection of the chest and no tenderness Resp Effort & Inspection: normal respiratory effort and able to speak in complete sentences Auscultation: clear to auscultation bilaterally Cardio Rate: regular rate Rhythm: regular rhythm GI Inspection: normal to inspection Palpation: soft, not firm, not rigid and nontender Auscultation: normal bowel sounds Back/Spine/Pelvis Thoracic/Lumbar Spine: thoracic and lumbar spine normal to inspection Pelvis: no pain with anterior-posterior compression Skin General skin exam: no rashes or lesions noted Neuro General: alert, awake and oriented x3 Cognition: normal cognition Speech: speech normal Motor: muscle tone normal throughout Sensory Exam: no sensory deficits noted Extrem General: normal to inspection, full ROM, normal capillary refill, no calf tenderness bilaterally and no edema Psych Appearance: grossly normal Mental Status: mental status grossly normal Speech and Movement: speech and movement normal Affect: normal affect Course Vital Signs Vital signs: Vital Signs Temperature 98.4 F 08/25/19 18:29 Pulse 70 08/25/19 18:29 Respiratory Rate 18 08/25/19 18:29 Blood Pressure 120/44 L 08/25/19 18:29 Pulse Oximetry 97 08/25/19 18:29 Temperature 98.4 F 08/25/19 18:29 Temperature Source Temporal Artery Scan 08/25/19 18:29 Pulse 70 08/25/19 18:29 Respiratory Rate 18 08/25/19 18:29 Blood Pressure 120/44 L 08/25/19 18:29 Blood Pressure Position Sitting 08/25/19 18:29 Pulse Oximetry 97 08/25/19 18:29 Oxygen Delivery Method Room Air 08/25/19 18:29 Oxygen Flow Rate 0 08/25/19 18:29 Pain Level 1 08/25/19 18:29
--- NOTE | 2019-08-25 19:27 | DI.RAD_ITS ---
EXAM: XR PORTABLE CHEST AP INDICATION: chest pain, r/o acute disease. COMPARISON: XR CHEST 2V PA LATERAL from 08/23/2019 TECHNIQUE: 2D digital imaging was performed. FINDINGS: There is mild elevation of the right hemidiaphragm, unchanged. There are some adjacent medial right l ower lobe opacities that could represent atelectasis, pneumonia not entirely excluded. Note is again made of cardiomegaly and right hilar prominence, unchanged when compared with the prior study of 201 4. There is no evidence of an acute bony abnormality.
[2019-08-25 19:53] LABS: Abs Immature Grans 0.03 k/cumm (0.0-0.09); Absolute Basophil Count 0.02 k/cumm (0.0-0.2); Absolute Eosinophil Count 0.26 k/cumm (0.0-0.7); Absolute Lymphocyte Count 3.47 k/cumm (1.2-3.4); Absolute Monocyte Count 0.83 k/cumm (0.11-0.7); Basophils % 0.2; Eosinophils % 2.3; HCT 35.3 % (36.0-46.0); HGB 11.9 g/dL (12.0-15.5); Immature Grans % 0.3; Lymphocytes % 30.6; Mean Corp. HGB Concentration 33.7 g/dL (32.0-36.0); Mean Corpuscular Hemoglobin 29.2 pg (27.0-33.0); Mean Corpuscular Volume 86.7 fL (80-95); Mean Platelet Volume 8.9 fL (8.0-11.0); Monocytes % 7.3; Neutrophils % 59.3; Platelet Count 282 x1000/uL (130-400); RBC 4.07 m/cumm (4.00-5.20); RBC Distribution Width 13.8 % (11.7-14.6); White Blood Cell Count 11.34 k/cumm (4.4-10.8)
[2019-08-25 19:54] LABS: Absolute Neutrophil Count 6.72 k/cumm (1.2-6.7)
[2019-08-25 20:03] LABS: Magnesium 2.2 mg/dL (1.8-2.4)
--- NOTE | 2019-08-25 20:06 | DI.VRAD_ITS ---
PROCEDURE INFORMATION: Exam: XR Chest, 1 View Exam date and time: 08/25/2019 7:28 PM Clinical history: 84 years old, female; Chest pain; Type not specified; Prior surgery; Surgery date: 3-7 days post-operative; Surgery type: PT states had surgery last week but does not remember what kind TECHNIQUE: Imaging protocol: XR of the chest Views: 1 view. COMPARISON: CR XR CHEST 2V PA LATERAL 08/23/2019 7:12 PM. 04/24/2014 FINDINGS: Lungs: Again noted is mild elevation of the right hemidiaphragm. There are some adjacent medial right lower lobe opacities that could represent atelectasis. Infection not excluded. Pleural space: No pneumothorax. Heart/Mediastinum: Cardiomegaly and mediastinal prominence are unchanged. There is persist asymmetric right hilar prominence, unchanged from 2013. Bones/joints: Skeletal degenerative changes. IMPRESSION: 1.Again noted is mild elevation of the right hemidiaphragm. There are some adjacent medial right lower lobe opacities that could represent atelectasis. Infection not entirely excluded. Other findings/details as above. Dictated and Authenticated by: Shy Villavicencio MD. Ordering:BRUNO Jensen MD
[2019-08-25 20:13] LABS: ALT 19 U/L (14-59); AST 13 U/L (15-37); Albumin 3.4 g/dL (3.4-5.0); Alkaline Phosphatase 74 U/L (46-116); BUN 13 mg/dL (7-18); Bilirubin, Total 0.5 mg/dL (0.2-1.0); CREATININE 1.03 mg/dL (0.55-1.02); Chloride 99 mmol/L (98-107); Glucose 204 mg/dL (70-100); NT-proBNP 184 pg/mL; Potassium 3.2 mmol/L (3.5-5.1); Sodium 135 mmol/L (136-145); Total Protein 6.7 g/dL (6.4-8.2); Troponin I < 0.05 ng/mL (0.00-0.06)
[2019-08-25 20:25] VITALS: RESP 20
--- NOTE | 2019-08-25 20:44 | HPE_ITS ---
Date of service: 08/25/19 Time of Service: 20:44 Assessment and Plan Assessment and plan (1) Chest pain: Status: Acute Assessment and plan: CP, possible ACS. Has already received ASA en route. Will complete serial troponins. Usual meds otherwise and will replace potassium. Reviewed Advance Directive. Patient does not seem to engage quite in discussion, but as best I can say seems to want Full Code. Will so indicate. History of Present Illness History of Present Illness Chief Complaint: CP Narrative: 84 female here recenty with what appeared to be symptomatic bradycardia, transferred to [facility]. No further bradycardia and no intervention in that regard. Report from ER here is that while at [facility] patient r/o'ed and had negative ECHO. At any rate, tonight after dinner patient developed substernal chest tightness, non-radiating, with associated SOB and diaphoresis. Relieved by NTG x 1 in field and transported here; total pain one hour. Here EKG showed no significant change and roponin #1 negative. Patient has remained asymptomatic here. Is admitted for rule out. Review of Systems Review of Systems ROS Unobtainable: All systems reviewed & are unremarkable except as noted in HPI and below [facility] Medical History Depression (Inactive) Diabetes mellitus (Inactive) Times 3 years. History of CVA (cerebrovascular accident) (Inactive 12/02/91) a. 1991. Osteoarthrosis (Inactive) both hips, right greater than left Osteopenia (Inactive) Panic attack (Inactive) Rupture of tendon of biceps, long head (Resolved 10/31/07) Surgical History Abdominal hysterectomy Bilateral salpingectomy with oophorectomy Biopsy of breast (~2003) left;neg Cholecystectomy History of bilateral salpingo-oophorectomy (Inactive) History of Surgical Procedure (Inactive) a. Cholecystectomy. b. Lysis of adhesions. c. Hysterectomy. d. Oophorectomy. Status post abdominal hysterectomy (Inactive) Status post breast biopsy (Inactive) Status post cholecystectomy (Inactive) Social History Smoking/Tobacco Use Status: Former Tobacco Use Alcohol Intake: never Drug use: Never Do you feel safe at home: Yes Do you feel safe in your relationship?: Yes Meds Home Medications and Allergies Home Medications Medication Instructions Recorded Confirmed Type naproxen sodium [Aleve] 1 tab PO BID PRN PRN #0 11/30/13 08/25/19 Rx albuterol sulfate [Ventolin HFA] 2 puff INHALATION Q4H PRN PRN #1 04/25/14 08/25/19 Rx inh lancets [Prodigy Lancets] #100 ea 08/17/15 08/25/19 History lancets [Onetouch Delica] #100 ea 03/22/16 08/25/19 History lorazepam 0.5 mg PO BID PRN PRN #3 tab 05/29/16 08/25/19 Rx metformin 1,000 mg tablet 1,000 mg PO BID #180 tab-cap 09/19/18 08/25/19 Rx blood-glucose meter #1 each 01/22/19 08/25/19 Rx blood sugar diagnostic #100 strip 03/04/19 08/25/19 Rx paroxetine HCl 20 mg tablet 20 mg PO DAILY #90 tab 05/05/19 08/25/19 Rx simvastatin 40 mg tablet 40 mg PO DAILY #90 tab 05/05/19 08/25/19 Rx Allergies Allergy/AdvReac Type Severity Reaction Status Date / Time iodine Allergy Unknown Unverified 08/23/19 18:20 Exam Narrative Exam Narrative: 120/44, 70, 36.9, 20. HEENT AT/NC; neck supple; lungs clear; heart RRR 2/6 sys murmur best LUSB with radiation to jugular notch (carotid upstrokes brisk); abdomen soft NT; extremities no edema, pulse equal Results Labs Result diagrams: 08/25/19 19:37 08/25/19 19:37 Labs: Laboratory Results - last 24 hr 08/25/19 08/25/19 08/25/19 19:37 19:37 19:37 WBC 11.34 H RBC 4.07 Hgb 11.9 L Hct 35.3 L MCV 86.7 MCH 29.2 MCHC 33.7 RDW 13.8 Plt Count 282 MPV 8.9 Immature Gran % 0.3 Neutrophils % 59.3 Lymphocytes % 30.6 Monocytes % 7.3 Eosinophils % 2.3 Basophils % 0.2 Absolute Neutrophils 6.72 H Absolute Lymphocytes 3.47 H Absolute Monocytes 0.83 H Absolute Eosinophils 0.26 Absolute Basophils 0.02 Sodium 135 L Potassium 3.2 L Chloride 99 Carbon Dioxide 24.0 Anion Gap 12.0 H BUN 13 Creatinine 1.03 H Estimated GFR/1.73 m2 51.30 Glucose 204 H Calcium 9.0 Magnesium 2.2 Total Bilirubin 0.5 AST 13 L ALT 19 Alkaline Phosphatase 74 Troponin I < 0.05 NT-Pro-B Natriuret Pep 184 Total Protein 6.7 Albumin 3.4 Last Vital Signs Temp 36.9 C 08/25/19 18:29 Pulse 70 08/25/19 18:29 Resp 20 08/25/19 20:25 BP 120/44 L 08/25/19 18:29 Pulse Ox 97 08/25/19 18:29
[2019-08-25 21:20] VITALS: BP 120/44; PULSE 70; RESP 20; TEMP 36.9; O2SAT 97
[2019-08-25 21:30] VITALS: PULSE 54
[2019-08-25 21:31] VITALS: BP 123/68; PULSE 61; RESP 17; TEMP 36; O2SAT 97
[2019-08-25] MEDS: Potassium Chloride 20 MEQ TABCR PO (22:31)
[2019-08-25] MEDS: metFORMIN 500 MG TAB 1000 MG PO (23:06)
[2019-08-25 23:17] LABS: Troponin I < 0.05 ng/mL (0.00-0.06)
[2019-08-25 23:50] VITALS: PULSE 68
[2019-08-26 03:55] VITALS: BP 117/71; PULSE 68; RESP 18; TEMP 36.8; O2SAT 96
[2019-08-26 07:01] VITALS: PULSE 65
[2019-08-26 07:15] VITALS: BP 113/64; PULSE 60; RESP 18; TEMP 36.6; O2SAT 94
[2019-08-26 07:48] LABS: Potassium 3.8 mmol/L (3.5-5.1)
[2019-08-26 07:58] LABS: Troponin I < 0.05 ng/mL (0.00-0.06)
[2019-08-26] MEDS: PARoxetine 20 MG TAB PO (08:36)
[2019-08-26] MEDS: metFORMIN 500 MG TAB 1000 MG PO (08:36)
[2019-08-26 11:15] VITALS: BP 119/70; PULSE 69; RESP 18; TEMP 36.5; O2SAT 96
--- NOTE | 2019-08-26 12:30 | MERGEMPI_ITS ---
*[facility]* *[facility]* [address] [place] [address] Myocardial Perfusion Imaging - SPECT Regadenoson Date of study: 08/26/2019 *PATIENT PRESENTATION* Height: 160cm (63in) Blood Pressure: Weight: 91.8kg (202lb) BSA: 2.06m^2 Ordering physician: Sierra Pierre Impressions: - Normal myocardial perfusion and contraction after pharmacological stress. - Low risk of cardiac events. Summary: 1. Myocardial perfusion imaging: No myocardial perfusion defects noted. 2. The calculated left ventricular ejection fraction after stress: 75%. LV global systolic function is normal. No left ventricular regional motion abnormality. 3. Stress ECG conclusions: The stress ECG is negative. The specificity of this test is limited by resting ECG abnormalities. 4. Baseline ECG: Normal sinus rhythm with 1degrees AV block and incomplete right bundle branch block. Nonspecific ST and T wave changes. Indication: R07.9, Appropriate Use Criteria: A (Appropriate). History: REASON FOR VISIT: PT WAS ADMITTED ON 08/25/19 TO RULE OUT ACS. PT REPORTS SHE LIVES AT THE [facility] AND EMS WAS CALLED BECAUSE HER FRIENDS THOUGHT SHE DID NOT LOOK WELL PT STATES SHE FELT DIZZY AND SHORT OF BREATH AT THIS TIME. PT DOES NOT RECALL HAVING CHEST PAINS ALTHOUGH SHED DID RECIEVE NITROGLYCERIN WITH RELIEF OF SYMPTOMS. Risk factors: Diabetes mellitus. Obesity. Dyslipidemia. ALLERGIES: IODINE. MEDICATIONS: METFORMIN 1,000 MG BID. SIMVASTATIN 40 MG DAILY. PAROXETINE HCL 20 MG DAILY. NAPROXEN SODIUM 220 MG BID PRN. ALBUTEROL SULFATE 2 PUFFS Q 4 HRS PRN. LORAZEPAM 0.5 MG BID PRN. Imaging Technique: Protocol: Regadenoson. Acquisition: Gated SPECT; 1 day - rest/stress. The patient was imaged in the supine position. Attenuation correction used. Isotope administration: - Rest. Tc[99m]-sestamibi. Dose: 10.1mCi. Injection time: 01:00 PM. Injection to stress time: 00:45. - Stress. Tc[99m]-sestamibi. Dose: 30.1mCi. Injection time: 03:00 PM. 1-2 min before end of exercise Baseline ECG: SINUS RHYTHM. 1ST AVB. HR 71 BPM. Normal sinus rhythm with 1degrees AV block and incomplete right bundle branch block. Nonspecific ST and T wave changes. Stress protocol: +--------+--+ + + !Stage !HR!BP (mmHg) !Comments ! +--------+--+ + + !Baseline!71!142/68 (93) ! ! +--------+--+ + + !1 min !85!130/50 (77) !Inject Regadenoson.! +--------+--+ + + !3 min !87!158/56 (90) ! ! +--------+--+ + + !6 min !98!158/82 (107)! ! +--------+--+ + + * Stress results: The rate-pressure product for the peak heart rate and blood pressure was 95469kd Hg/min. Stress ECG: LEXISCAN STRESS TEST ENDED IN 6 MINUTES & 48 SECONDS. PT BECAME NAUSEATED AND VOMITED 2 MINUTES AFTER LEXISCAN INJECTION. NAUSEA SUBSIDED BY 6 MINUTES POST LEXISCAN INJECTION. NORMAL HEART RATE AND BLOOD PRESSURE RESPONSE TO LEXISCAN INJECTION NO ECTOPY NO ANGINA NO SIGNIFICANT ST SEGMENT CHANGES The stress ECG is negative. The specificity of this test is limited by resting ECG abnormalities. Myocardial perfusion: Imaging information: gated. The image quality was good. Left ventricular size is normal. No myocardial perfusion defects noted. Ventricular Function (Wall Motion): The calculated left ventricular ejection fraction after stress: 75%. LV global systolic function is normal. No left ventricular regional motion abnormality. Study data: Marquise Ferguson MD supervised and was readily available during the procedure. This study was interpreted by [facility]. Study status: Routine. Consent: The risks, benefits, and alternatives to the procedure were explained to the patient and informed consent was obtained. Procedure: Initial setup. A baseline ECG was recorded. Surface ECG leads and manual cuff blood pressure measurements were monitored. Heart sounds: Normal. Lung sounds: Normal. Regadenoson stress test. Stress testing was performed, with regadenoson by intravenous bolus, for a total dose of 0.4mgover 10.00sec, followed by a 5ml saline flush. The infusion was terminated due to per protocol. Study completion: All catheters inserted during the procedure were removed. The patient tolerated the procedure well and was discharged from the lab. Discharge: The patient left the laboratory in stable condition. Birthdate: Patient birthdate: 1935. Sex: Gender: female. Study date: Study date: 08/26/2019. Study time: 00:01 AM. Signature Documentation: - The imaging portion of this study was interpreted by Nuclear Executive Assistant To President Marquise Ferguson MD. - The Stress ECG portion of this study was interpreted by Marquise Ferguson MD. Electronically signed by Marquise Ferguson 08/26/2019 16:15
[2019-08-26 13:44] VITALS: PULSE 70
[2019-08-26] MEDS: Regadenoson 0.4 MG/5 ML SYR IVP (14:30)
--- NOTE | 2019-08-26 14:56 | CHAPLAIN ---
Alyssa was sitting up in bed when I visited. She lives at the [facility] and talked about how much she enjoys living there and spending time with her neighbors. Alyssa is a member of [employer] and has gotten to know Fr. Galicia She gave me permission to let Fr. Galicia know she is here. When I called the rectory I left a message for Fr. Galicia who is on his day off.
--- NOTE | 2019-08-26 16:51 | W.PM.DS.N ---
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 At that time she was experiencing dizziness and shortness of breath. While at [facility], she was ruled out for NE and telemetry monitoring never showed significant symptomatic bradycardia. Her Hgb A1c at that time was elevated at 11.6. 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 She presented to the [facility] ED 3 times over the last 3 days. Yesterday when she presented to the ED, she reported substernal chest tightness, non-radiating, with associated SOB and diaphoresis which was relieved by NTG x 1. In the ED, her EKG showed no significant change from previous. Her troponins were trended and remained negative. She was admitted to the med/surg floor for further evaluation and management. She was monitored on telemetry and found to have heart rates from 54-68 with first degree block and incomplete LBBB. She went on to have an MPI which was normal, low risk of cardiac events. Due to her reports of dizziness, a carotid artery ultrasound was ordered, but the test was not completed and the patient was demanding discharge home. Carotid artery ultrasound should be considered as an outpatient, she will discuss with her primary care provider. At the time of her discharge, she denies any chest pain or dizziness. She is eager for discharge home. She will follow up with her PCP, she has an appointment in place. Home Meds and New Rx's Prescriptions: New acetaminophen [Tylenol] 325 mg Tablet 650 mg PO Q6H PRN PRNQty: 0 RF: 0 Continued (DME) blood-glucose meter [OneTouch Ultra2 Meter] kit See Dose Instructions .ROUTE .MEDSUPPLY Qty: 1 RF: 0 metformin 1,000 mg tablet 1,000 mg PO BID Qty: 180 RF: 4 (DME) lancets [Prodigy Lancets] 1 EACH misc 1 ea Miscellaneous BID Qty: 100 RF: 6 (DME) lancets [OneTouch Delica Lancets] 1 EACH misc 1 ea Miscellaneous BID Qty: 100 RF: 4 (DME) OneTouch Ultra Test strip 1 ea Miscellaneous BID Qty: 100 RF: 4 simvastatin [Zocor] 40 mg tablet 40 mg PO DAILY Qty: 90 RF: 4 paroxetine HCl [Paxil] 20 mg tablet 20 mg PO DAILY Qty: 90 RF: 4 albuterol sulfate [Ventolin HFA] 60 PUFF HFA aerosol inhaler 2 puff Inhalation Q4H PRN PRNQty: 1 RF: 0 lorazepam 0.5 MG tablet 0.5 mg PO BID PRN PRN (Reason: Anxiety) Qty: 3 RF: 0 Discontinued naproxen sodium [Aleve] 220 MG tablet 1 tab PO BID PRN PRNQty: 0 RF: 0 Discharge Instructions Instructions: Chest Pain (DC) Additional Instructions: If you have chest pain or dizziness, return to the ED. Follow up with your PCP in 1-2 weeks. Stop taking Naproxen. Drink plenty of fluids. Tylenol for pain. Activity:: Activity as Tolerated Equipment/Supplies:: No Equipment Needed Diet:: Carb Counting Discharge Orders Discharge Orders: Discharge Order (Routine); Ordered 08/26/19 Ordered By: Claribel Lake DS: Summary Status at Discharge Functional status at discharge: independent ambulation Overall status at discharge: patient is back to baseline Mental Status: mental status grossly normal Speech and Movement: speech and movement normal Mood: congruent mood Affect: normal affect Exam Narrative Exam Narrative: General: Sitting up in chair, awake, alert and oriented x3, in no acute distress. Answers questions appropriately. Speaks in complete sentences. HEENT: Normocephalic, atraumatic, pupils equal and round, extraocular movements intact, mucous membranes moist. Neck: supple. Respiratory: respirations even and unlabored. Extremities: no significant edema. Psych Mental Status: mental status grossly normal Speech and Movement: speech and movement normal Mood: congruent mood Affect: normal affect DS: Data Vitals/I&O Vitals and I&O: Vital Signs Temperature 36.5 C 08/26/19 11:15 Temperature Source Tympanic 08/26/19 11:15 Pulse 69 08/26/19 11:15 Pulse Rhythm Irregular 08/26/19 15:58 Respiratory Rate 18 08/26/19 11:15 Respiratory Effort Non-Labored 08/26/19 15:58 Respiratory Depth Normal 08/26/19 15:58 Respiratory Pattern Normal 08/26/19 15:58 Blood Pressure 119/70 08/26/19 11:15 Blood Pressure Position Sitting 08/25/19 18:29 Pulse Oximetry 96 08/26/19 11:15 Oxygen Delivery Method Room Air 08/26/19 11:15 Oxygen Flow Rate 0 08/26/19 11:15 Pain Level 0 08/26/19 11:15 Comment 08/26/19 11:15 Intake & Output 08/25/19 08/26/19 08/26/19 23:59 11:59 23:59 Intake Total 520 / 520 Output Total 100 / 100 Balance 420 / 420 Weight 93.4 kg Intake: Oral 520 / 520 Output: Urine 100 / 100 Other: Urine Color Yellow Urine Appearance Clear Clear Clear Urine Odor Normal Voiding Methods Toilet Data Completed and Pending Completed studies during hospitalization [Text1]: 08/25/19: EXAM: XR PORTABLE CHEST AP INDICATION: chest pain, r/o acute disease. COMPARISON: XR CHEST 2V PA LATERAL from 08/23/2019 TECHNIQUE: 2D digital imaging was performed. FINDINGS: There is mild elevation of the right hemidiaphragm, unchanged. There are some adjacent medial right lower lobe opacities that could represent atelectasis, pneumonia not entirely excluded. Note is again made of cardiomegaly and right hilar prominence, unchanged when compared with the prior study of 2013. There is no evidence of an acute bony abnormality. Date of study: 08/26/2019 *PATIENT PRESENTATION* Height: 160cm (63in) Blood Pressure: Weight: 91.8kg (202lb) BSA: 2.06m^2 Ordering physician: Sierra Pierre Impressions: - Normal myocardial perfusion and contraction after pharmacological stress. - Low risk of cardiac events. Summary: 1. Myocardial perfusion imaging: No myocardial perfusion defects noted. 2. The calculated left ventricular ejection fraction after stress: 75%. LV global systolic function is normal. No left ventricular regional motion abnormality. 3. Stress ECG conclusions: The stress ECG is negative. The specificity of this test is limited by resting ECG abnormalities. 4. Baseline ECG: Normal sinus rhythm with 1degrees AV block and incomplete right bundle branch block. Nonspecific ST and T wave changes. Chest x-ray: Labs on day of discharge: Labs from last 24 hours 08/26/19 08/26/19 08/25/19 06:40 06:40 22:40 WBC RBC Hgb Hct MCV MCH MCHC RDW Plt Count MPV Immature Gran % Neutrophils % Lymphocytes % Monocytes % Eosinophils % Basophils % Absolute Neutrophils Absolute Lymphocytes Absolute Monocytes Absolute Eosinophils Absolute Basophils Sodium Potassium 3.8 Chloride Carbon Dioxide Anion Gap BUN Creatinine Estimated GFR/1.73 m2 Glucose Calcium Magnesium Total Bilirubin AST ALT Alkaline Phosphatase Troponin I < 0.05 < 0.05 NT-Pro-B Natriuret Pep Total Protein Albumin 08/25/19 08/25/19 08/25/19 21:34 20:58 19:37 WBC 11.34 H RBC 4.07 Hgb 11.9 L Hct 35.3 L MCV 86.7 MCH 29.2 MCHC 33.7 RDW 13.8 Plt Count 282 MPV 8.9 Immature Gran % 0.3 Neutrophils % 59.3 Lymphocytes % 30.6 Monocytes % 7.3 Eosinophils % 2.3 Basophils % 0.2 Absolute Neutrophils 6.72 H Absolute Lymphocytes 3.47 H Absolute Monocytes 0.83 H Absolute Eosinophils 0.26 Absolute Basophils 0.02 Sodium Potassium Cancelled Chloride Carbon Dioxide Anion Gap BUN Creatinine Estimated GFR/1.73 m2 Glucose Calcium Magnesium Total Bilirubin AST ALT Alkaline Phosphatase Troponin I Cancelled NT-Pro-B Natriuret Pep Total Protein Albumin 08/25/19 08/25/19 19:37 19:37 WBC RBC Hgb Hct MCV MCH MCHC RDW Plt Count MPV Immature Gran % Neutrophils % Lymphocytes % Monocytes % Eosinophils % Basophils % Absolute Neutrophils Absolute Lymphocytes Absolute Monocytes Absolute Eosinophils Absolute Basophils Sodium 135 L Potassium 3.2 L Chloride 99 Carbon Dioxide 24.0 Anion Gap 12.0 H BUN 13 Creatinine 1.03 H Estimated GFR/1.73 m2 51.30 Glucose 204 H Calcium 9.0 Magnesium 2.2 Total Bilirubin 0.5 AST 13 L ALT 19 Alkaline Phosphatase 74 Troponin I < 0.05 NT-Pro-B Natriuret Pep 184 Total Protein 6.7 Albumin 3.4 PFSH Medical History Depression (Inactive) Diabetes mellitus (Inactive) Times 3 years. History of CVA (cerebrovascular accident) (Inactive 12/02/91) a. 1992. Osteoarthrosis (Inactive) both hips, right greater than left Osteopenia (Inactive) Panic attack (Inactive) Rupture of tendon of biceps, long head (Resolved 10/31/07) Surgical History Abdominal hysterectomy Bilateral salpingectomy with oophorectomy Biopsy of breast (~2003) left;neg Cholecystectomy History of bilateral salpingo-oophorectomy (Inactive) History of Surgical Procedure (Inactive) a. Cholecystectomy. b. Lysis of adhesions. c. Hysterectomy. d. Oophorectomy. Status post abdominal hysterectomy (Inactive) Status post breast biopsy (Inactive) Status post cholecystectomy (Inactive) Social History Smoking/Tobacco Use Status: Former Tobacco Use Alcohol Intake: never Drug use: Never Do you feel safe at home: Yes Do you feel safe in your relationship?: Yes
--- NOTE | 2019-08-26 19:52 | PDOC.CMPRO ---
Care Management Progress Note Alyssa was lying in bed when CM met with her. She reports residing at [facility] in [facility] and loving where she lives. She reports there is a meal site, bingo and Senior [facility] attached to her residence as well as the Police Department and Fire Department right next door. Alyssa reports having AD and that Kamila and Grayson Graham are her decision makers. She reports only having one family member, a grand-daughter in [place] [facility] who she speaks with over the phone each Saturday. Alyssa reports that her son's had a debilitating stroke prior to his and that her grand-daughter is now her primary animal care giver. Alyssa reports being surrounded by friends and feeling she has a great quality of life. She utilizes the [employer] bus for errands and appointments and to procure her groceries. She reports no concerns at this time and advocates for discharge which the provider permits. Alyssa will return home with no additional services and follow up with her recommended outpatient follow up plan.
== END 2019-08-26 17:55 | disposition home or self-care (01) ==
LOC: ER 21:26 → MS 21:27
PROVIDERS: Physician Assistant; Admitting Provider General Practice; Emergency Provider Physician Assistant; PCP Family Medicine; Visit Provider Internal Medicine
DX: R07.9 Chest pain, unspecified (principal); R42 Dizziness and giddiness; I44.7 Left bundle-branch block, unspecified; I44.0 Atrioventricular block, first degree; E11.9 Type 2 diabetes mellitus without complications; Z79.84 Long term (current) use of oral hypoglycemic drugs; I10 Essential (primary) hypertension
CPT/HCPCS: 36415; 78452; 80053; 93005; 93016; 93018; 99222; 99239; 99285; 71045; 83735; 83880; 84132; 84484; 85025; 93010; 93017; 99217; 99218; G0378; J2785

== ENCOUNTER 2019-08-28 09:48 | Emergency (ER) | payer MEDICARE, SELFPAY ==
[2019-08-28 09:55] VITALS: BP 115/50; PULSE 67; RESP 16; TEMP 36.4; O2SAT 100
[2019-08-28 10:28] LABS: Abs Immature Grans 0.03 k/cumm (0.0-0.09); Absolute Basophil Count 0.03 k/cumm (0.0-0.2); Absolute Eosinophil Count 0.17 k/cumm (0.0-0.7); Absolute Monocyte Count 0.74 k/cumm (0.11-0.7); Absolute Neutrophil Count 10.14 k/cumm (1.2-6.7); Basophils % 0.2; Eosinophils % 1.2; HCT 35.9 % (36.0-46.0); Immature Grans % 0.2; Lymphocytes % 20.7; Mean Corp. HGB Concentration 33.4 g/dL (32.0-36.0); Mean Corpuscular Hemoglobin 29.1 pg (27.0-33.0); Mean Corpuscular Volume 86.9 fL (80-95); Monocytes % 5.3; Neutrophils % 72.4; Platelet Count 313 x1000/uL (130-400); RBC 4.13 m/cumm (4.00-5.20); RBC Distribution Width 13.9 % (11.7-14.6); White Blood Cell Count 14.01 k/cumm (4.4-10.8)
--- NOTE | 2019-08-28 10:35 | W.ED.GENAD ---
Discharge Plan Disposition Patient Disposition: HOME Condition: Improving Discharge Details Chief Complaint: Nausea/Vomit/Diar Clinical Impression: Gastritis Primary Care Provider: Larry Moulton ED Provider: Polo Davis Home Meds and New Rx's Prescriptions: New pantoprazole [Protonix] 20 mg tablet,delayed release (DR/EC) 20 mg PO DAILY Qty: 14 RF: 0 No Action (DME) blood-glucose meter [OneTouch Ultra2 Meter] kit See Dose Instructions .ROUTE .MEDSUPPLY Qty: 1 RF: 0 metformin 1,000 mg tablet 1,000 mg PO BID Qty: 180 RF: 4 (DME) lancets [Prodigy Lancets] 1 EACH misc 1 ea Miscellaneous BID Qty: 100 RF: 6 (DME) lancets [OneTouch Delica Lancets] 1 EACH misc 1 ea Miscellaneous BID Qty: 100 RF: 4 (DME) OneTouch Ultra Test strip 1 ea Miscellaneous BID Qty: 100 RF: 4 simvastatin [Zocor] 40 mg tablet 40 mg PO DAILY Qty: 90 RF: 4 paroxetine HCl [Paxil] 20 mg tablet 20 mg PO DAILY Qty: 90 RF: 4 albuterol sulfate [Ventolin HFA] 60 PUFF HFA aerosol inhaler 2 puff Inhalation Q4H PRN PRNQty: 1 RF: 0 lorazepam 0.5 MG tablet 0.5 mg PO BID PRN PRN (Reason: Anxiety) Qty: 3 RF: 0 acetaminophen [Tylenol] 325 mg Tablet 650 mg PO Q6H PRN PRNQty: 0 RF: 0 Discharge Instructions Instructions: Gastritis (ED) Additional Instructions: As we discussed, avoid fatty, fried, spicy or acidic foods. We will trial 2 weeks of antacid medication. Continue your regular medications. As we discussed, you deferred having CAT scan of the abdomen performed today. Please return at any time for reevaluation Follow-up with your regular doctor for recheck if not improving in 1 week's time. Discharge Data Discharge Date/Time-TO BE ENTERED AT DEPARTURE: 08/28/19 11:45 Medical Decision Making 84-year-old female with 7 to 10 days of intermittent episodes of epigastric burning, she was admitted for similar on August 25 and had a uneventful stress test. She was discharged home. She has been eating liberal quantities of de leon tomatoes daily as it is harvest season. She presents again today complaining of burning epigastric discomfort and nausea. She has blood pressure 115/50, pulse 67, respirations 16, she is in no acute distress. She does have minimal epigastric discomfort on exam. Differential diagnosis includes gastritis, must exclude pancreatitis or mass. Blood work obtained and patient given a GI cocktail with improvement. I ordered an abdominal CT scan as she is not had this is part of her work-up but she declined and asked to be discharged home following improvement with GI cocktail. We discussed that this may be due to her increased ingestion of acidic de leon tomatoes, but that she should return for recurrent discomfort or any other acute concerns. I will trial 2 weeks of antacid for her. She stable and improving appropriate for discharge home at this time. Lab Data Lab results reviewed: Yes I reviewed the patient's lab results. Labs: Laboratory Results - last 24 hr 08/28/19 08/28/19 08/28/19 10:20 10:20 10:34 WBC 14.01 H RBC 4.13 Hgb 12.0 Hct 35.9 L MCV 86.9 MCH 29.1 MCHC 33.4 RDW 13.9 Plt Count 313 MPV 9.0 Immature Gran % 0.2 Neutrophils % 72.4 Lymphocytes % 20.7 Monocytes % 5.3 Eosinophils % 1.2 Basophils % 0.2 Absolute Neutrophils 10.14 H Absolute Lymphocytes 2.90 Absolute Monocytes 0.74 H Absolute Eosinophils 0.17 Absolute Basophils 0.03 Sodium 136 Cancelled Potassium 3.6 Cancelled Chloride 101 Cancelled Carbon Dioxide 22.2 Cancelled Anion Gap 12.8 H Cancelled BUN 12 Cancelled Creatinine 0.98 Cancelled Estimated GFR/1.73 m2 54.33 Cancelled Glucose 149 H Cancelled Calcium 8.9 Cancelled Magnesium 1.9 Total Bilirubin 0.5 Cancelled AST 15 Cancelled ALT 22 Cancelled Alkaline Phosphatase 74 Cancelled Troponin I < 0.05 Total Protein 7.2 Cancelled Albumin 3.6 Cancelled Lipase Cancelled ECG Data Attestation: I personally reviewed and interpreted this ECG (s) as follows: Interpretation: Normal sinus rhythm, first-degree AV block, the rate is 62, the QRS is narrow, there is no ST segment elevation present HPI General Mode of arrival: ambulatory. Date/Time Provider Initiated Documentation: 08/28/19 09:56. Limitations to Documentation: no limitations. Information obtained by: patient. History of Present Illness 84 year old F presents to the emergency department with the chief complaint of Recurrent epigastric burning discomfort and nausea without emesis., Quality is described as constant, and is localized to the chest. Patient started experiencing this hour(s) and it has been constant. No relieving factors improve symptom(s), No exacerbating factors reported . Patient notes no other symptoms.. Patient did receive the following treatments prior to arrival, other (Zofran) Related Data Home Medications Medication Instructions Recorded Confirmed albuterol sulfate [Ventolin HFA] 2 puff INHALATION Q4H PRN PRN #1 04/25/14 08/25/19 inh lancets [Prodigy Lancets] #100 ea 08/17/15 08/25/19 lancets [OneTouch Delica Lancets] #100 ea 03/22/16 08/25/19 lorazepam 0.5 mg PO BID PRN PRN #3 tab 05/29/16 08/25/19 metformin 1,000 mg tablet 1,000 mg PO BID #180 tab-cap 09/19/18 08/25/19 blood-glucose meter #1 each 01/22/19 08/25/19 blood sugar diagnostic #100 strip 03/04/19 08/25/19 paroxetine HCl 20 mg tablet 20 mg PO DAILY #90 tab 05/05/19 08/25/19 simvastatin 40 mg tablet 40 mg PO DAILY #90 tab 05/05/19 08/25/19 acetaminophen [Tylenol] 650 mg PO Q6H PRN PRN #0 tab 08/26/19 pantoprazole [Protonix] 20 mg PO DAILY #14 tab 08/28/19 Previous Rx's Medication Instructions Recorded albuterol sulfate [Ventolin HFA] 2 puff INHALATION Q4H PRN PRN #1 04/25/14 inh lorazepam 0.5 mg PO BID PRN PRN #3 tab 05/29/16 metformin 1,000 mg tablet 1,000 mg PO BID #180 tab-cap 09/19/18 blood-glucose meter #1 each 01/22/19 blood sugar diagnostic #100 strip 03/04/19 paroxetine HCl 20 mg tablet 20 mg PO DAILY #90 tab 05/05/19 simvastatin 40 mg tablet 40 mg PO DAILY #90 tab 05/05/19 acetaminophen [Tylenol] 650 mg PO Q6H PRN PRN #0 tab 08/26/19 pantoprazole [Protonix] 20 mg PO DAILY #14 tab 08/28/19 Allergies Allergy/AdvReac Type Severity Reaction Status Date / Time iodine Allergy Unknown Unverified 08/28/19 09:58 General Stated Complaint: Nausea/Vomit/Diar RASHEL: 3 Review of Systems Review of Systems Narrative: 6 systems reviewed and otherwise negative [facility] Medical History Depression (Inactive) Diabetes mellitus (Inactive) Times 3 years. History of CVA (cerebrovascular accident) (Inactive 12/02/91) a. 1991. Osteoarthrosis (Inactive) both hips, right greater than left Osteopenia (Inactive) Panic attack (Inactive) Rupture of tendon of biceps, long head (Resolved 10/31/07) Surgical History Abdominal hysterectomy Bilateral salpingectomy with oophorectomy Biopsy of breast (~2003) left;neg Cholecystectomy History of bilateral salpingo-oophorectomy (Inactive) History of Surgical Procedure (Inactive) a. Cholecystectomy. b. Lysis of adhesions. c. Hysterectomy. d. Oophorectomy. Status post abdominal hysterectomy (Inactive) Status post breast biopsy (Inactive) Status post cholecystectomy (Inactive) Social History Smoking/Tobacco Use Status: Never Alcohol Intake: never Drug use: Never Substance use type: does not use Do you feel safe at home: Yes Do you feel safe in your relationship?: Yes Exam Narrative Exam Narrative: GEN: awake, alert, oriented 3. Pleasant, well groomed, interactive. HEAD: Normocephalic, atraumatic ENT: Mucous membranes moist, oropharynx unremarkable, External ear exam unremarkable EYES: PERRL, EOMI NECK: Full ROM, no JOSIAH, no menigismus CHEST/RESP: Nontender, clear to auscultation bilateral, no wheeze/rhonchi/rales CARDIOVASCULAR: RRR, no murmur, rub beth. 2+ Rad pulse bilateral ABDOMEN: Soft, minimal epigastric tenderness without evidence of rebound or guarding, no mass. +Bowel sounds EXT: Full ROM, no edema, no rash Neuro: Grossly normal neurologic exam, conversant, interactive. Psych: Speech fluent, thoughts congruent, affect normal Course Vital Signs Vital signs: Vital Signs Temperature 36.4 C L 08/28/19 09:55 Pulse 67 08/28/19 09:55 Respiratory Rate 16 08/28/19 09:55 Blood Pressure 115/50 L 08/28/19 09:55 Pulse Oximetry 100 08/28/19 09:55 Temperature 36.4 C L 08/28/19 09:55 Temperature Source Skin 08/28/19 09:55 Pulse 67 08/28/19 09:55 Respiratory Rate 16 08/28/19 09:55 Blood Pressure 115/50 L 08/28/19 09:55 Pulse Oximetry 100 08/28/19 09:55 Oxygen Delivery Method Room Air 08/28/19 09:55 Oxygen Flow Rate 0 08/28/19 09:55 Pain Level 0 08/28/19 09:55 Lab/Test Results Lab/Test Results: Laboratory Tests Range/Units 08/28/19 10:20 WBC (4.4-10.8) k/cumm 14.01 H RBC (4.00-5.20) m/cumm 4.13 Hgb (12.0-15.5) g/dL 12.0 Hct (36.0-46.0) % 35.9 L MCV (80-95) fL 86.9 MCH (27.0-33.0) pg 29.1 MCHC (32.0-36.0) g/dL 33.4 RDW (11.7-14.6) % 13.9 Plt Count (130-400) x1000/uL 313 MPV (8.0-11.0) fL 9.0 Immature Gran % 0.2 Neutrophils % 72.4 Lymphocytes % 20.7 Monocytes % 5.3 Eosinophils % 1.2 Basophils % 0.2 Absolute Neutrophils (1.2-6.7) k/cumm 10.14 H Absolute Lymphocytes (1.2-3.4) k/cumm 2.90 Absolute Monocytes (0.11-0.7) k/cumm 0.74 H Absolute Eosinophils (0.0-0.7) k/cumm 0.17 Absolute Basophils (0.0-0.2) k/cumm 0.03
[2019-08-28 10:46] LABS: ALT 22 U/L (14-59); AST 15 U/L (15-37); Albumin 3.6 g/dL (3.4-5.0); Alkaline Phosphatase 74 U/L (46-116); Anion Gap 12.8 mmol/L (3-11); BUN 12 mg/dL (7-18); Bilirubin, Total 0.5 mg/dL (0.2-1.0); CO2 22.2 mmol/L (21.0-32.0); CREATININE 0.98 mg/dL (0.55-1.02); Calcium 8.9 mg/dL (8.5-10.1); Chloride 101 mmol/L (98-107); Estimated GFR 54.33 (mL/min/1.73m2); Glucose 149 mg/dL (70-100); Magnesium 1.9 mg/dL (1.8-2.4); Potassium 3.6 mmol/L (3.5-5.1); Sodium 136 mmol/L (136-145); Total Protein 7.2 g/dL (6.4-8.2)
[2019-08-28 10:51] LABS: Troponin I < 0.05 ng/mL (0.00-0.06)
[2019-08-28 11:00] LABS: Lipase 92 U/L (73-393)
[2019-08-28] MEDS: Normal Saline 1,000 ML 1000 ML IV (11:22)
[2019-08-28 11:30] VITALS: BP 119/65; PULSE 72; RESP 14; TEMP 36.7; O2SAT 98
== END 2019-08-28 11:45 | disposition home or self-care (01) ==
PROVIDERS: Emergency Provider Emergency Medicine; PCP Family Medicine
DX: K29.00 Acute gastritis without bleeding (principal); Z53.29 Procedure and treatment not carried out because of patient's decision for other reasons
CPT/HCPCS: 36415; 80053; 83690; 96360; 99283; 83735; 84484; 85025

== ENCOUNTER 2019-08-28 20:32 | Emergency (ER) | payer MEDICARE, SELFPAY ==
[2019-08-28] VITALS (9 sets, daily range): BP systolic 95–116; BP diastolic 37–50; PULSE 60–67; RESP 16–20; TEMP 36.8; O2SAT 94–100
[2019-08-28 21:51] LABS: Lipase 99 U/L (73-393)
[2019-08-28 22:02] LABS: Troponin I < 0.05 ng/mL (0.00-0.06)
--- NOTE | 2019-08-28 22:08 | ED.GENADUL_ITS ---
Discharge Plan Disposition Patient Disposition: HOME Condition: Good Discharge Details Chief Complaint: Abd Prob Clinical Impression: Nausea Primary Care Provider: Larry Moulton ED Provider: Alberto Weeks Home Meds and New Rx's Prescriptions: No Action (DME) blood-glucose meter [OneTouch Ultra2 Meter] kit See Dose Instructions .ROUTE .MEDSUPPLY Qty: 1 RF: 0 metformin 1,000 mg tablet 1,000 mg PO BID Qty: 180 RF: 4 (DME) lancets [Prodigy Lancets] 1 EACH misc 1 ea Miscellaneous BID Qty: 100 RF: 6 (DME) lancets [OneTouch Delica Lancets] 1 EACH misc 1 ea Miscellaneous BID Qty: 100 RF: 4 (DME) OneTouch Ultra Test strip 1 ea Miscellaneous BID Qty: 100 RF: 4 simvastatin [Zocor] 40 mg tablet 40 mg PO DAILY Qty: 90 RF: 4 paroxetine HCl [Paxil] 20 mg tablet 20 mg PO DAILY Qty: 90 RF: 4 albuterol sulfate [Ventolin HFA] 60 PUFF HFA aerosol inhaler 2 puff Inhalation Q4H PRN PRNQty: 1 RF: 0 lorazepam 0.5 MG tablet 0.5 mg PO BID PRN PRN (Reason: Anxiety) Qty: 3 RF: 0 pantoprazole [Protonix] 20 mg tablet,delayed release (DR/EC) 20 mg PO DAILY Qty: 14 RF: 0 acetaminophen [Tylenol] 325 mg Tablet 650 mg PO Q6H PRN PRNQty: 0 RF: 0 Discharge Instructions Instructions: Abdominal Pain (ED) Additional Instructions: Please stop eating tomatoes. Please take your home Zofran as needed. Please feel free to also take Pepto-Bismol. This time your CT scan shows no concerning abnormalities, your heart work-up shows no evidence of heart attack. If you notice any worsening of your symptoms, or any new symptoms such as vomiting, diarrhea, fever, chills, shortness of breath, chest pain, numbness, weakness, or fainting , please return immediately to the emergency department for reevaluation. Please follow up with your primary care provider as soon as pos sible for reassessment and reevaluation. As always, it was a pleasure participating in your medical care today. Referrals: Larry Moulton MD [Primary Care Provider] - Medical Decision Making This is an 84-year-old female with history of diabetes, hypertension, depression, CVA, panic attacks. Patient was seen here 2 weeks ago for chest pain complaints and was transferred to [facility] for symptomatic bradycardia when she was found to have a possible heart block and junctional escape rhythm. DC summary from her [facility] visit noted that she had no signs of bradycardia and only one episode of lightheadedness and was discharged home. She did have blood cultures which grew 1/4 with gram-positive bacilli in anaerobic bottle which was thought to be contamination. She also had an echo which noted a large mass and a follow-up cardiac MRI which did not see a mass present and was thought to be epicardial fat. She was again admitted here recently on 08/26 where she had a negative stress test at that time. She was seen again earlier today for mild epigastric burning, that time she was given a GI cocktail, refused CT scan, and had a negative cardiac work-up. She left and went home. Since then she has had return of her mild epigastric pain, nonexertional. She has nausea but no vomiting. Physical exam is notably unremarkable, vital signs stable. The patient is amendable to receiving her CT scan at this time. We will evaluate with CT scan, recommend giving repeat GI cocktail and reassessing. Signs and symptoms at this time appear consistent with mild gastritis, especially with her multiple benign cardiac work-ups. We will still evaluate for unlikely cardiac etiology here in the meantime. 12:[address] scan results have returned, no evidence of significant abnormality, she has bilateral kidney stones that are nonobstructing. No evidence of pyelonephritis, laboratory work-up is notably unremarkable with a normal troponin, normal lipase, and her laboratory work-up earlier today was also notably benign. EKG is unchanged and unremarkable. On reassessment the patient has complete resolution of her symptomatology. She feels well and would like to go home. With no evidence of acute life-threatening etiology, unremarkable labs, and unremarkable serial work-ups. I feel she can be discharged home with close follow-up. We discussed red flags which return, the importance of avoidance of de leon tomatoes, and the importance of close follow-up with her PCP. She does have Zofran already at home so she will not require new prescription. I have extensively reviewed the treatment plan and discharge instructions with the patient. I have addressed all patient concerns at this time. The patient was made aware of what symptoms to monitor for that would warrant a return to the emergency department. Discussed the plan with the patient, they demonstrate verbal understanding and agreement with our assessment and plan at this time. EKG 22: 39 Rate 61, NC 260 first-degree AV block with sinus rhythm, QTc 429, QRS 108, no significant ST elevations or depressions, nonspecific T wave abnormalities in V1 V2 V3, minimal depression less than 1 mm, inverted T wave in lead III with Q wave in lead III. EKG from 08/15/2019 demonstrates identical findings. No acute changes. No evidence of STEMI Summary: 1. Myocardial perfusion imaging: No myocardial perfusion defects noted. 2. The calculated left ventricular ejection fraction after stress: 75%. LV global systolic function is normal. No left ventricular regional motion abnormality. 3. Stress ECG conclusions: The stress ECG is negative. The specificity of this test is limited by resting ECG abnormalities. 4. Baseline ECG: Normal sinus rhythm with 1degrees AV block and incomplete right bundle branch block. Nonspecific ST and T wave changes. Addendum created by Ludwin Burger MD on 08/28/2019 11:22 PM Eastern Time ([place] & [place]) IMPRESSION: 1. Bilateral nephrolithiasis. Mild left-sided hydronephrosis. No obstructing calculi in the course of the ureter is identified. 2. Colonic diverticulosis, no acute diverticulitis. Status post hysterectomy. St atus post cholecystectomy. See the body of the report for the remainder of nonacute ancillary findings. Initial Report created on 08/28/2019 11:21 PM Eastern Time ([place] & [place]) PROCEDURE INFORMATION: Exam: CT Abdomen and Pelvis Without Contrast Exam date and time: 08/28/2019 10:19 PM Clinical history: 84 years old, female; Abdominal pain; Epigastric; Prior surgery; Surgery date: 6+ months; Surgery type: Hysterectomy, gallbladder TECHNIQUE: Imaging protocol: Computed tomography of the abdomen and pelvis without contrast. Radiation optimization: All CT scans at this facility use at least one of these dose optimization techniques: automated exposure control; mA and/or kV adjustment per patient size (includes targeted exams where dose is matched to clinical indication); or iterative reconstructi on. COMPARISON: CR PELVIS AP 04/18/2013 4:57 PM FINDINGS: Lungs: Bibasilar linear opacities atelectasis and/or fibrosis. Heart: Mild cardiomegaly. Liver: No mass. Gallbladder and bile ducts: Gallbladder is not identified. Pancreas: Atrophic pancreas. Spleen: No splenomegaly. Adrenals: No mass. Kidneys and ureters: 4 mm right renal calculus. 2 mm right renal calculus within the lower pole of the right kidney. Mild left-sided hydronephrosis. Several calculi within the collecting system of the left kidney, the largest left renal calculus measures 13 mm. Stomach and bowel: Small hiatal hernia containing proximal stomach. Colonic diverticulosis. Appendix: No evidence of appendicitis. Intraperitoneal space: No free air. No significant fluid collection. Vasculature: IVC clip in place. Lymph nodes: No enlarged lymph nodes. Bladder: Unremarkable as visualized. Reproductive: Status post hysterectomy. Bones/joints: Multilevel degenerative changes of the thoracic and lumbar spine. Soft tissues: The abdomen is obese. IMPRESSION: 1. Bilateral nephrolithiasis. Mild left-sided hydronephrosis. No obstructing calculi in the course of the ureter is identified. 2. Colonic diverticulosis, no acute diverticulitis. Status post hysterectomy. Status post cholecystectomy. She did body of the report for the remainder of nonacute ancillary findings. Thank you for allowing us to participate in the care of your patient. Dictated and Authenticated by: Ludwin Burger MD 08/28/2019 11:21 PM Eastern Time ([place] & [place]) HPI General Date/Time Provider Initiated Documentation: 08/28/19 20:54 . HPI Narrative: This is an 84-year-old female with history of diabetes, hypertension, depression, CVA, panic attacks. Patient was seen here 2 weeks ago for chest pain complaints and was transferred to [facility] for symptomatic bradycardia when she was found to have a possible heart block and junctional escape rhythm. DC summary from her [facility] visit noted that she had no signs of bradycardia and only one episode of lightheadedness and was discharged home. She did have blood cultures which grew 1/4 with gram-positive bacilli in anaerobic bottle which was thought to be contamination. She also had an echo which noted a large mass and a follow-up cardiac MRI which did not see a mass present and was thought to be epicardial fat. She was again admitted here recently on 08/26 where she had a negative stress test at that time. She was seen again earlier today for mild epigastric burning, that time she was given a GI cocktail, refused CT scan, and had a negative cardiac work-up. She left and went home. Since then she has had return of her mild epigastric pain, nonexertional. She has nausea but no vo miting. She denies any exertional discomfort, arm neck or shoulder pain, chest pain, chest heaviness or bandlike tightness. She states that her symptoms feel identical to how they felt before. She has been eating a significant amount of red de leon tomatoes recently, but has not eaten any more this afternoon after her initial visit. She denies any other complaints. She denies any other modifying factors. She denies any cough, fever, chills, pleuritic chest pain, shortness of breath, numbness, tingling, weakness, hemoptysis, vomiting, diarrhea, hematochezia, melena, acholic stool. Related Data Home Medications Medication Instructions Recorded Confirmed albuterol sulfate [Ventolin HFA] 2 puff INHALATION Q4H PRN PRN #1 04/25/14 08/25/19 inh lancets [Prodigy Lancets] #100 ea 08/17/15 08/25/19 lancets [OneTouch Delica Lancets] #100 ea 03/22/16 08/25/19 lorazepam 0.5 mg PO BID PRN PRN #3 tab 05/29/16 08/25/19 metformin 1,000 mg tablet 1,000 mg PO BID #180 tab-cap 09/19/18 08/25/19 blood-glucose meter #1 each 01/22/19 08/25/19 blood sugar diagnostic #100 strip 03/04/19 08/25/19 paroxetine HCl 20 mg tablet 20 mg PO DAILY #90 tab 05/05/19 08/25/19 simvastatin 40 mg tablet 40 mg PO DAILY #90 tab 05/05/19 08/25/19 acetaminophen [Tylenol] 650 mg PO Q6H PRN PRN #0 tab 08/26/19 pantoprazole [Protonix] 20 mg PO DAILY #14 tab 08/28/19 Previous Rx's Medication Instructions Recorded albuterol sulfate [Ventolin HFA] 2 puff INHALATION Q4H PRN PRN #1 04/25/14 inh lorazepam 0.5 mg PO BID PRN PRN #3 tab 05/29/16 metformin 1,000 mg tablet 1,000 mg PO BID #180 tab-cap 09/19/18 blood-glucose meter #1 each 01/22/19 blood sugar diagnostic #100 strip 03/04/19 paroxetine HCl 20 mg tablet 20 mg PO DAILY #90 tab 05/05/19 simvastatin 40 mg tablet 40 mg PO DAILY #90 tab 05/05/19 acetaminophen [Tylenol] 650 mg PO Q6H PRN PRN #0 tab 08/26/19 pantoprazole [Protonix] 20 mg PO DAILY #14 tab 08/28/19 Allergies Allergy/AdvReac Type Severity Reaction Status Date / Time iodine Allergy Unknown Unverified 08/28/19 20:40 General Stated Complaint: Abd Prob RASHEL: 4 Review of Systems Review of Systems ROS Unobtainable: All systems reviewed & are unremarkable except as noted in HPI and below PFSH Social History Smoking/Tobacco Use Status: Never Alcohol Intake: never Drug use: Never Substance use type: does not use Do you feel safe at home: Yes Do you feel safe in your relationship?: Yes Exam Narrative Exam Narrative: 1.Const: Well-nourished, Well-developed, appearing stated age 2.Eyes: PERRL, no conjunctival injection, and symmetrical lids. 3.ENT: Atraumatic external nose and ears. Moist MM. Neck: Symmetric, trachea midline, No thyromegaly. 4.CVS: +S1/S2, No murmurs or gallops. Peripheral pulses 2+ and equal in all extremities. Brisk capillary refill in all extremities. Radial pulses +2 bilaterally. 5.RESP: Unlabored respiratory effort. Clear to auscultation bilaterally. No wheezes rales or rhonchi 6.GI: Soft, Nontender/Nondistended, No hepatosplenomegaly. No guarding or rebound. No epigastric tenderness. 7.MSK: Normocephalic/Atraumatic, Extremities w/o deformity or ttp No cyanosis or clubbing, Normal movement of all extremities 8.Skin: Warm, Dry. No rashes or lesions. 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 Sensation grossly intact, no focal neurologic deficits. 10.Psych: (AAO) x3. Appropriate mood and affect Course Vital Signs Vital signs: Vital Signs Temperature 36.8 C 08/28/19 20:35 Pulse 67 08/28/19 20:35 Respiratory Rate 20 08/28/19 20:35 Blood Pressure 116/46 L 08/28/19 20:35 Pulse Oximetry 100 08/28/19 20:35 Temperature 36.8 C 08/28/19 20:35 Temperature Source Temporal Artery Scan 08/28/19 20:35 Pulse 67 08/28/19 20:35 Respiratory Rate 20 08/28/19 20:35 Blood Pressure 116/46 L 08/28/19 20:35 Blood Pressure Position Sitting 08/28/19 20:35 Pulse Oximetry 100 08/28/19 20:35 Oxygen Delivery Method Room Air 08/28/19 20:35 Oxygen Flow Rate 0 08/28/19 20:35 Pain Level 6 08/28/19 20:35 Lab/Test Results Lab/Test Results: Laboratory Tests Range/Units 08/28/19 21:10 Troponin I (0.00-0.06) ng/mL < 0.05 Lipase (73-393) U/L 99
--- NOTE | 2019-08-28 22:30 | DI.CT_ITS ---
EXAM: CT ABDOMEN PELVIS WO CLINICAL HISTORY: epigastric pain, nausea. TECHNIQUE: .Imaging Protocol: Axial computed tomography images with coronal and sagittal reformatted images were created and reviewed CONTRAST MATERIAL: Intravenous: Omnipaque 350 Contrast volume:0 cc contrast route:IV - Oral:No COMPARISON: CHEST FOR PULMONARY EMBOLUS from 05/29/2016 FINDINGS: ABDOMEN: Lung Bases: There is scarring or atelectasis in the lung bases bilaterally. Liver: Normal density. No measurable mass. Gallbladder and biliary tract: The gallbladder is not identified. The patient appears to be status p ost cholecystectomy. There is no biliary ductal dilatation. Pancreas: There is pancreatic atrophy. Spleen: Normal. Kidneys: Normal size, contour and axis. There are bilateral nonobstructing stones in the kidneys. Th e largest is in the inferior pole of the left kidney. There does appear to be mild dilatation of the left renal collecting system. But no ureteral stone is identified. No masses seen. Adrenal glands: No masses seen. Abdominal Aorta: Abdominal portion non-dilated. No abdominal or pelvic adenopathy is present. PELVIS: Bladder: Symmetric distention, no gross wall thickening. The patient appears to be status post hyster ectomy. Bowel: No obstruction or bowel wall thickening. There is colonic diverticulosis. But no evidence of acute diverticulitis. There is a small hiatal hernia. Peritoneal cavity: No ascites, collection or mesenteric inflammatory response. Bones: Multilevel degenerative changes are present. If symptomatic further imaging may be performed. IMPRESSION: Bilateral nephrolithiasis. Mild hydronephrosis of the left renal collecting system. No ureteral sto ne is present. DATA REPOSITORY: All CT scans at this facility are submitted to the National Radiology Data Registry (NRDR) Dose Index Registry (DIR) with the [employer] [place] [employer] ([employer]). RADIATION OPTIMIZATION: All CT scans at this facility use at least one of these dose optimization te chniques: automated exposure control; mA and/or kV adjustment per patient size (includes targeted exa ms where dose is matched to clinical indication); or iterative reconstruction.
[2019-08-29] VITALS: BP 102/61; PULSE 62; RESP 18; O2SAT 96
[2019-08-29 00:15] VITALS: BP 104/45; PULSE 63; RESP 16; O2SAT 96
[2019-08-29 01:30] VITALS: BP 104/45; PULSE 63; RESP 20; O2SAT 96
== END 2019-08-29 01:17 | disposition home or self-care (01) ==
PROVIDERS: Emergency Provider Student in an Organized Health Care Education/Training Program; PCP Family Medicine
DX: R11.0 Nausea (principal); I44.0 Atrioventricular block, first degree; N20.0 Calculus of kidney; I10 Essential (primary) hypertension; E11.9 Type 2 diabetes mellitus without complications; Z79.84 Long term (current) use of oral hypoglycemic drugs
CPT/HCPCS: 36415; 80053; 83690; 93005; 96360; 99283; 99285; 74176; 83735; 84484; 85025; 93010

== ENCOUNTER 2019-08-29 10:25 | Emergency (ER) | payer MEDICARE, SELFPAY ==
[2019-08-29] VITALS (31 sets, daily range): BP systolic 100–137; BP diastolic 34–70; PULSE 57–79; RESP 16–48; TEMP 36.7; O2SAT 94–100
--- NOTE | 2019-08-29 11:05 | W.ED.GENAD ---
Discharge Plan Disposition Patient Disposition: HOME Condition: Improving Discharge Details Chief Complaint: Nausea/Vomit/Diar Clinical Impression: Nausea and vomiting Primary Care Provider: Larry Moulton ED Provider: Camila Singh Home Meds and New Rx's Prescriptions: Continued (DME) blood-glucose meter [OneTouch Ultra2 Meter] kit See Dose Instructions .ROUTE .MEDSUPPLY Qty: 1 RF: 0 metformin 1,000 mg tablet 1,000 mg PO BID Qty: 180 RF: 4 (DME) lancets [Prodigy Lancets] 1 EACH misc 1 ea Miscellaneous BID Qty: 100 RF: 6 (DME) lancets [OneTouch Delica Lancets] 1 EACH misc 1 ea Miscellaneous BID Qty: 100 RF: 4 (DME) OneTouch Ultra Test strip 1 ea Miscellaneous BID Qty: 100 RF: 4 simvastatin [Zocor] 40 mg tablet 40 mg PO DAILY Qty: 90 RF: 4 paroxetine HCl [Paxil] 20 mg tablet 20 mg PO DAILY Qty: 90 RF: 4 albuterol sulfate [Ventolin HFA] 60 PUFF HFA aerosol inhaler 2 puff Inhalation Q4H PRN PRNQty: 1 RF: 0 lorazepam 0.5 MG tablet 0.5 mg PO BID PRN PRN (Reason: Anxiety) Qty: 3 RF: 0 pantoprazole [Protonix] 20 mg tablet,delayed release (DR/EC) 20 mg PO DAILY Qty: 14 RF: 0 acetaminophen [Tylenol] 325 mg Tablet 650 mg PO Q6H PRN PRNQty: 0 RF: 0 No Action lorazepam [Ativan] 0.5 mg tablet 0.5 mg PO BID PRN (Reason: anxiety) Qty: 7 RF: 0 Discharge Instructions Instructions: Acute Nausea and Vomiting (ED) Additional Instructions: Drink plenty of fluids and get plenty of rest. Take the Compazine or Zofran as needed and directed for nausea or vomiting. Care management will follow up with you next week for reevaluation with the palliative care doctor as well as home health. Return to the emergency department if you develop any worsening or new concerning symptoms. Discharge Data Discharge Date/Time-TO BE ENTERED AT DEPARTURE: 08/29/19 14:38 Discharge Physician: Camila Singh Medical Decision Making 1020 -- 84-year-old female with a history of diabetes, DVT, PE, CVA with her seventh visit over the past 14 days presents with nausea and vomiting 3 times today. Patient was seen here twice yesterday for the same complaint and had unremarkable labs, EKG and CT imaging and felt better and was discharged home. She took Zofran this morning without relief. Vitals within normal limits. Afebrile. She appears nontoxic. Considering her age and history, will check screening labs, urinalysis give fluids and Compazine and reassess. Case discussed with care management who recommends a palliative care consult as patient has been seen here multiple times in the past 2 weeks. Labs reviewed and unremarkable. White blood cell count 12 which is stable compared to recent baseline. Troponin negative. Urinalysis notes findings consistent with mild dehydration but no infection. 1310 --patient is feeling much better requesting to go home. Tara from care management discussed with patient at bedside and will arrange for patient to be evaluated by Dr. Huston this week and likely arrange for home health. We will send home with 3 tabs of Compazine to take in place of Zofran as she had relief with this today. She is advised to return here with any worsening or new concerning symptoms. Medical Records Medical records reviewed: Yes I reviewed the patient's medical records. Lab Data Lab results reviewed: Yes I reviewed the patient's lab results. Labs: Laboratory Tests Range/Units 08/29/19 08/29/19 08/29/19 10:58 10:58 11:30 WBC (4.4-10.8) k/cumm 12.95 H RBC (4.00-5.20) m/cumm 4.02 Hgb (12.0-15.5) g/dL 11.7 L Hct (36.0-46.0) % 34.9 L MCV (80-95) fL 86.8 MCH (27.0-33.0) pg 29.1 MCHC (32.0-36.0) g/dL 33.5 RDW (11.7-14.6) % 13.8 Plt Count (130-400) x1000/uL 276 MPV (8.0-11.0) fL 8.9 Immature Gran % 0.2 Neutrophils % 80.0 Lymphocytes % 14.9 Monocytes % 4.3 Eosinophils % 0.4 Basophils % 0.2 Absolute Neutrophils (1.2-6.7) k/cumm 10.36 H Absolute Lymphocytes (1.2-3.4) k/cumm 1.93 Absolute Monocytes (0.11-0.7) k/cumm 0.56 Absolute Eosinophils (0.0-0.7) k/cumm 0.05 Absolute Basophils (0.0-0.2) k/cumm 0.03 Sodium (136-145) mmol/L 137 Potassium (3.5-5.1) mmol/L 3.7 Chloride (98-107) mmol/L 102 Carbon Dioxide (21.0-32.0) mmol/L 21.5 Anion Gap (3-11) mmol/L 13.5 H BUN (7-18) mg/dL 13 Creatinine (0.55-1.02) mg/dL 0.94 Estimated GFR/1.73 m2 (mL/min/1.73m2) 57.01 Glucose (70-100) mg/dL 182 H Calcium (8.5-10.1) mg/dL 8.3 L Magnesium (1.8-2.4) mg/dL 1.9 Total Bilirubin (0.2-1.0) mg/dL 0.4 AST (15-37) U/L 13 L ALT (14-59) U/L 19 Alkaline Phosphatase (46-116) U/L 69 Troponin I (0.00-0.06) ng/mL < 0.05 Total Protein (6.4-8.2) g/dL 6.7 Albumin (3.4-5.0) g/dL 3.4 Urine Color (Yellow) Yellow Urine Clarity (Clear) Clear Urine pH (5-8) 5.5 Ur Specific [place] (1.005-1.025) 1.010 Urine Protein (Negative) mg/dL Negative Urine Ketones (Negative) mg/dL 40 H Urine Blood (Negative) Negative Urine Nitrite (Negative) Negative Urine Bilirubin (Negative) Small H Urine Urobilinogen (Up TO 0.2) EU/dL 0.2 Ur Leukocyte Esterase (Negative) Negative Urine Glucose (Negative) mg/dL 500 H HPI General Mode of arrival: EMS. Date/Time Provider Initiated Documentation: 08/29/19 10:36. Limitations to Documentation: no limitations. Information obtained by: patient. HPI Narrative: Patient is an 84-year-old female with a history of depression, diabetes, CVA, anxiety who presents for nausea and vomiting today. This is patient's 7th visit within the past 2 weeks. She was seen here twice yesterday for nausea and vomiting and had lab work and CT abdomen imaging which was negative for acute findings. She states today she awoke and ate breakfast and then vomited 3 times within 1 hour later. She states the vomitus consisted mainly of food and mucus. She denies any vomiting blood, fever, chest pain, shortness of breath, abdominal pain or urinary symptoms. Of note, patient was admitted here 2 days ago for chest pain and had a stress test which was negative. She had Zofran at home which she took today without relief. She was given Protonix upon discharge yesterday. Related Data Home Medications Medication Instructions Recorded Confirmed albuterol sulfate [Ventolin HFA] 2 puff INHALATION Q4H PRN PRN #1 04/25/14 08/29/19 inh lancets [Prodigy Lancets] #100 ea 08/17/15 08/29/19 lancets [OneTouch Delica Lancets] #100 ea 03/22/16 08/29/19 lorazepam 0.5 mg PO BID PRN PRN #3 tab 05/29/16 08/29/19 metformin 1,000 mg tablet 1,000 mg PO BID #180 tab-cap 09/19/18 08/29/19 blood-glucose meter #1 each 01/22/19 08/29/19 blood sugar diagnostic #100 strip 03/04/19 08/29/19 paroxetine HCl 20 mg tablet 20 mg PO DAILY #90 tab 05/05/19 08/29/19 simvastatin 40 mg tablet 40 mg PO DAILY #90 tab 05/05/19 08/29/19 acetaminophen [Tylenol] 650 mg PO Q6H PRN PRN #0 tab 08/26/19 08/29/19 pantoprazole [Protonix] 20 mg PO DAILY #14 tab 08/28/19 08/29/19 lorazepam [Ativan] 0.5 mg PO BID PRN #7 tab 08/30/19 Previous Rx's Medication Instructions Recorded albuterol sulfate [Ventolin HFA] 2 puff INHALATION Q4H PRN PRN #1 04/25/14 inh lorazepam 0.5 mg PO BID PRN PRN #3 tab 05/29/16 metformin 1,000 mg tablet 1,000 mg PO BID #180 tab-cap 09/19/18 blood-glucose meter #1 each 01/22/19 blood sugar diagnostic #100 strip 03/04/19 paroxetine HCl 20 mg tablet 20 mg PO DAILY #90 tab 05/05/19 simvastatin 40 mg tablet 40 mg PO DAILY #90 tab 05/05/19 acetaminophen [Tylenol] 650 mg PO Q6H PRN PRN #0 tab 08/26/19 pantoprazole [Protonix] 20 mg PO DAILY #14 tab 08/28/19 lorazepam [Ativan] 0.5 mg PO BID PRN #7 tab 08/30/19 Allergies Allergy/AdvReac Type Severity Reaction Status Date / Time iodine Allergy Unknown Unverified 08/29/19 10:35 General Stated Complaint: Nausea/Vomit/Diar RASHEL: 3 Review of Systems Review of Systems ROS Unobtainable: All systems reviewed & are unremarkable except as noted in HPI and below Constitutional Constitutional: Reports as per HPI, Denies chills and Denies fever(s) Eyes Eyes: Denies blurry vision ENT Ears, Nose, Mouth, and Throat: Denies dizziness, Denies sore throat and Denies throat swelling Cardiovascular Cardiovascular: Denies chest pain and Denies dyspnea Respiratory Respiratory: Denies cough and Denies dyspnea Gastrointestinal Gastrointestinal: Denies abdominal pain, Denies diarrhea and Reports vomiting Genitourinary Genitourinary: Denies hematuria and Denies dysuria Musculoskeletal Musculoskeletal: Denies back pain and Denies numbness Integumentary/Breasts Skin/Breast: Denies lesions and Denies rash Neurologic Neurologic: Denies dizziness, Denies focal weakness and Denies numbness Allergic/Immunologic Allergic/Immunologic: Denies throat swelling [facility] Medical History Depression (Inactive) Diabetes mellitus (Inactive) Times 3 years. History of CVA (cerebrovascular accident) (Inactive 12/02/91) a. 1991. Osteoarthrosis (Inactive) both hips, right greater than left Osteopenia (Inactive) Panic attack (Inactive) Rupture of tendon of biceps, long head (Resolved 10/31/07) Surgical History Abdominal hysterectomy Bilateral salpingectomy with oophorectomy Biopsy of breast (~2003) left;neg Cholecystectomy History of bilateral salpingo-oophorectomy (Inactive) History of Surgical Procedure (Inactive) a. Cholecystectomy. b. Lysis of adhesions. c. Hysterectomy. d. Oophorectomy. Status post abdominal hysterectomy (Inactive) Status post breast biopsy (Inactive) Status post cholecystectomy (Inactive) Social History Smoking/Tobacco Use Status: Never Alcohol Intake: never Drug use: Never Substance use type: does not use Do you feel safe at home: Yes Do you feel safe in your relationship?: Yes Exam Const General: cooperative, healthy appearing and no acute distress HENMT Head: normal to inspection Face and sinus: normal facial exam Eyes General: appearance normal, both eyes and all related structures EOM: EOM intact bilaterally Neck Neck: normal visual inspection and No submandibular swelling Lymphatic: no lymphadenopathy noted Chest Chest: normal inspection of the chest and no tenderness Resp Effort & Inspection: normal respiratory effort and able to speak in complete sentences Auscultation: clear to auscultation bilaterally Cardio Rate: regular rate Rhythm: regular rhythm GI Inspection: normal to inspection Palpation: soft, not firm, not rigid and nontender Auscultation: normal bowel sounds Skin General skin exam: no rashes or lesions noted Neuro General: alert, awake and oriented x3 Cognition: normal cognition Speech: speech normal Motor: muscle tone normal throughout Sensory Exam: no sensory deficits noted Extrem General: normal to inspection, full ROM, normal capillary refill, no calf tenderness bilaterally and no edema Psych Appearance: grossly normal Mental Status: mental status grossly normal Speech and Movement: speech and movement normal Affect: normal affect Course Vital Signs Vital signs: Vital Signs Temperature 98.1 F 08/29/19 10:28 Pulse 69 08/29/19 10:28 Respiratory Rate 16 08/29/19 10:28 Blood Pressure 118/44 L 08/29/19 10:28 Pulse Oximetry 95 08/29/19 10:28 Temperature 98.1 F 08/29/19 10:28 Temperature Source Temporal Artery Scan 08/29/19 10:28 Pulse 60 08/29/19 10:31 Respiratory Rate 16 08/29/19 10:28 Respiratory Effort Non-Labored 08/29/19 10:31 Blood Pressure 120/46 L 08/29/19 10:31 Blood Pressure Position Sitting 08/29/19 10:28 Pulse Oximetry 96 08/29/19 10:31 Oxygen Delivery Method Room Air 08/29/19 10:28 Oxygen Flow Rate 0 08/29/19 10:28 Pain Level 0 08/29/19 10:28
[2019-08-29 11:06] LABS: Abs Immature Grans 0.03 k/cumm (0.0-0.09); Absolute Basophil Count 0.03 k/cumm (0.0-0.2); Absolute Eosinophil Count 0.05 k/cumm (0.0-0.7); Absolute Lymphocyte Count 1.93 k/cumm (1.2-3.4); Absolute Monocyte Count 0.56 k/cumm (0.11-0.7); Basophils % 0.2; Eosinophils % 0.4; HCT 34.9 % (36.0-46.0); HGB 11.7 g/dL (12.0-15.5); Immature Grans % 0.2; Lymphocytes % 14.9; Mean Corp. HGB Concentration 33.5 g/dL (32.0-36.0); Mean Corpuscular Hemoglobin 29.1 pg (27.0-33.0); Mean Corpuscular Volume 86.8 fL (80-95); Mean Platelet Volume 8.9 fL (8.0-11.0); Monocytes % 4.3; Platelet Count 276 x1000/uL (130-400); RBC 4.02 m/cumm (4.00-5.20); RBC Distribution Width 13.8 % (11.7-14.6); White Blood Cell Count 12.95 k/cumm (4.4-10.8)
[2019-08-29 11:18] LABS: Absolute Neutrophil Count 10.36 k/cumm (1.2-6.7)
[2019-08-29 11:23] LABS: ALT 19 U/L (14-59); AST 13 U/L (15-37); Albumin 3.4 g/dL (3.4-5.0); Alkaline Phosphatase 69 U/L (46-116); Anion Gap 13.5 mmol/L (3-11); BUN 13 mg/dL (7-18); Bilirubin, Total 0.4 mg/dL (0.2-1.0); CO2 21.5 mmol/L (21.0-32.0); CREATININE 0.94 mg/dL (0.55-1.02); Calcium 8.3 mg/dL (8.5-10.1); Chloride 102 mmol/L (98-107); Estimated GFR 57.01 (mL/min/1.73m2); Glucose 182 mg/dL (70-100); Magnesium 1.9 mg/dL (1.8-2.4); Potassium 3.7 mmol/L (3.5-5.1); Sodium 137 mmol/L (136-145); Total Protein 6.7 g/dL (6.4-8.2)
[2019-08-29 11:26] LABS: Troponin I < 0.05 ng/mL (0.00-0.06)
[2019-08-29] MEDS: Prochlorperazine 10 MG/2 ML VIAL IVP (11:37)
[2019-08-29 11:38] LABS: Bilirubin Small (Negative); Blood Negative (Negative); Clarity Clear (Clear); Glucose 500 mg/dL (Negative); Ketones 40 mg/dL (Negative); Leukocyte Esterase Negative (Negative); Nitrite Negative (Negative); Urobilinogen 0.2 EU/dL (Up TO 0.2); pH 5.5 (5-8)
[2019-08-29] MEDS: Normal Saline 500 ML IV (11:38)
[2019-08-29] MEDS: Normal Saline Flush 10 ML SYR IVP (11:38)
[2019-08-29] MEDS: Prochlorperazine 10 MG TAB 30 MG PO (14:31)
--- NOTE | 2019-08-30 09:29 | PDOC.ERCMPRO ---
- If Service Date Differs Date of service: 08/29/19 Time of Service: 13:00 Care Management Progress Note S/O: RAJEEV met with Alyssa in the ED she has had several ED visits including two admission once at [facility] and one at [facility]. Alyssa is alert and engaged during assessment with CM. She states she lives at the [facility] she has no local family however she does have some friends that check on her in the building. She does not drive she has a can for ambulation. She is not currently receiving community services and she does have meals through the [facility]. Alyssa is unsure why she keeps coming to the ED she states she feels anxious at times and becomes scared. She states her anxiety has been worse over the last week and at times is associated with vomiting. She states she does have some medication at home that helps with her anxiety however she is unable to tell me what the medication is. Alyssa states her only family is in [place] which is her Granddaughter whom she does not see. Her son she tells me about three years ago and her spouse in 1998. She uses the [employer] for transportation however per her friend she sits on the porch of the [facility] most hours of the day. Alyssa would like more community supports, per her friend she does not take her medications and is forgetful at times which appears to be worse lately. CM reviewed supports with Alyssa she is open to an assessment by home health for nursing r/t to new medications and teaching as well as PRINCIPAL STATISTICAL SCIENTIST to address community resources. CM faxed the referral I also reviewed palliative services which she is also willing to do. CM faxed referral to palliaitve care in addition to [facility]. RAJEEV spoke with Alyssa's friend Wanda and she will pick her up at the hospital. P: Alyssa was referred to Home Health for nursing and PRINCIPAL STATISTICAL SCIENTIST, she was also referred to Palliative which CM will follow up on Saturday with the patient and service. Provider updated with the plan.
== END 2019-08-29 14:38 | disposition home or self-care (01) ==
PROVIDERS: Emergency Provider Physician Assistant; PCP Family Medicine
DX: R11.2 Nausea with vomiting, unspecified (principal); E11.9 Type 2 diabetes mellitus without complications; Z79.84 Long term (current) use of oral hypoglycemic drugs; I10 Essential (primary) hypertension
CPT/HCPCS: 36415; 80053; 96361; 96374; 99284; 81003; 83735; 84484; 85025; J0780

== ENCOUNTER 2019-08-30 11:42 | Emergency (ER) | payer MEDICARE, SELFPAY ==
[2019-08-30 11:43] VITALS: BP 133/50; PULSE 76; RESP 18; TEMP 36.6; O2SAT 98
--- NOTE | 2019-08-30 11:55 | W.ED.GENAD ---
Discharge Plan Disposition Patient Disposition: HOME Condition: Stable Discharge Details Chief Complaint: Anxiety Clinical Impression: Acute anxiety Primary Care Provider: Larry Moulton ED Provider: Polo Davis Home Meds and New Rx's Prescriptions: New lorazepam [Ativan] 0.5 mg tablet 0.5 mg PO BID PRN (Reason: anxiety) Qty: 7 RF: 0 Continued (DME) blood-glucose meter [OneTouch Ultra2 Meter] kit See Dose Instructions .ROUTE .MEDSUPPLY Qty: 1 RF: 0 metformin 1,000 mg tablet 1,000 mg PO BID Qty: 180 RF: 4 (DME) lancets [Prodigy Lancets] 1 EACH misc 1 ea Miscellaneous BID Qty: 100 RF: 6 (DME) lancets [OneTouch Delica Lancets] 1 EACH misc 1 ea Miscellaneous BID Qty: 100 RF: 4 (DME) OneTouch Ultra Test strip 1 ea Miscellaneous BID Qty: 100 RF: 4 simvastatin [Zocor] 40 mg tablet 40 mg PO DAILY Qty: 90 RF: 4 paroxetine HCl [Paxil] 20 mg tablet 20 mg PO DAILY Qty: 90 RF: 4 albuterol sulfate [Ventolin HFA] 60 PUFF HFA aerosol inhaler 2 puff Inhalation Q4H PRN PRNQty: 1 RF: 0 lorazepam 0.5 MG tablet 0.5 mg PO BID PRN PRN (Reason: Anxiety) Qty: 3 RF: 0 pantoprazole [Protonix] 20 mg tablet,delayed release (DR/EC) 20 mg PO DAILY Qty: 14 RF: 0 acetaminophen [Tylenol] 325 mg Tablet 650 mg PO Q6H PRN PRNQty: 0 RF: 0 Discharge Instructions Instructions: Anxiety (ED) Additional Instructions: Continue your regularly prescribed medications. We have refilled your Ativan. Our care managers will arrange a follow-up for you with Dr. Moulton in clinic. Home to rest today. Medical Decision Making 84-year-old female with a number of recent visits to the ED and admission to the hospital. She has had ongoing, recurrent episodes of anxiety with associated nausea. She has not had vomiting, no change to stool, denies chest pain, heaviness been taking her medications as prescribed including Ativan 0.5 mg. Recent work-up includes admission, serial cardiac troponins, unremarkable myocardial perfusion scan on August 26. She is had a CAT scan of the head, chest x-ray, CT of the abdomen and pelvis. Given a GI cocktail and additional 0.5 mg Ativan, observed, tolerated a popsicle. Essentially felt significantly improved. She was seen in the ED by care management yesterday and they are aware of her frequent visits. I will ask care management to arrange a follow-up with Dr. Moulton. She is stable and improved at this time. Caregiver and patient note that she is run out of her Ativan, in the long-term she may benefit from a different approach to management of her anxiety, but I do feel that a refill is appropriate between now and follow-up in clinic. HPI General Mode of arrival: EMS. Date/Time Provider Initiated Documentation: 08/30/19 11:47. Information obtained by: patient and EMS. History of Present Illness 84 year old F presents to the emergency department with the chief complaint of Anxiety, recurrent at home, described as moderate and similar to prior episodes, Patient started experiencing this hour(s) and it has been constant. No relieving factors improve symptom(s), No exacerbating factors reported . Patient notes no other symptoms., loss of appetite and malaise; denies chest pain, cough, fever/chills, nausea/vomiting and shortness of breath. Patient did receive the following treatments prior to arrival, other (Prescribed medications) Related Data Home Medications Medication Instructions Recorded Confirmed albuterol sulfate [Ventolin HFA] 2 puff INHALATION Q4H PRN PRN #1 04/25/14 08/29/19 inh lancets [Prodigy Lancets] #100 ea 08/17/15 08/29/19 lancets [OneTouch Delica Lancets] #100 ea 03/22/16 08/29/19 lorazepam 0.5 mg PO BID PRN PRN #3 tab 05/29/16 08/29/19 metformin 1,000 mg tablet 1,000 mg PO BID #180 tab-cap 09/19/18 08/29/19 blood-glucose meter #1 each 01/22/19 08/29/19 blood sugar diagnostic #100 strip 03/04/19 08/29/19 paroxetine HCl 20 mg tablet 20 mg PO DAILY #90 tab 05/05/19 08/29/19 simvastatin 40 mg tablet 40 mg PO DAILY #90 tab 05/05/19 08/29/19 acetaminophen [Tylenol] 650 mg PO Q6H PRN PRN #0 tab 08/26/19 08/29/19 pantoprazole [Protonix] 20 mg PO DAILY #14 tab 08/28/19 08/29/19 lorazepam [Ativan] 0.5 mg PO BID PRN #7 tab 08/30/19 Previous Rx's Medication Instructions Recorded albuterol sulfate [Ventolin HFA] 2 puff INHALATION Q4H PRN PRN #1 04/25/14 inh lorazepam 0.5 mg PO BID PRN PRN #3 tab 05/29/16 metformin 1,000 mg tablet 1,000 mg PO BID #180 tab-cap 09/19/18 blood-glucose meter #1 each 01/22/19 blood sugar diagnostic #100 strip 03/04/19 paroxetine HCl 20 mg tablet 20 mg PO DAILY #90 tab 05/05/19 simvastatin 40 mg tablet 40 mg PO DAILY #90 tab 05/05/19 acetaminophen [Tylenol] 650 mg PO Q6H PRN PRN #0 tab 08/26/19 pantoprazole [Protonix] 20 mg PO DAILY #14 tab 08/28/19 lorazepam [Ativan] 0.5 mg PO BID PRN #7 tab 08/30/19 Allergies Allergy/AdvReac Type Severity Reaction Status Date / Time iodine Allergy Unknown Unverified 08/29/19 10:35 General Stated Complaint: Anxiety RASHEL: 3 Review of Systems Review of Systems Narrative: Recent work-up including CT of the abdomen and pelvis on August 28, chest x-ray August 25, CT scan of the head 08/23, myocardial perfusion scan August 26. Anxious. No thoughts of harming herself or others. 6 systems reviewed and otherwise negative. [facility] Medical History Depression (Inactive) Diabetes mellitus (Inactive) Times 3 years. History of CVA (cerebrovascular accident) (Inactive 12/02/91) a. 1991. Osteoarthrosis (Inactive) both hips, right greater than left Osteopenia (Inactive) Panic attack (Inactive) Rupture of tendon of biceps, long head (Resolved 10/31/07) Surgical History Abdominal hysterectomy Bilateral salpingectomy with oophorectomy Biopsy of breast (~2003) left;neg Cholecystectomy History of bilateral salpingo-oophorectomy (Inactive) History of Surgical Procedure (Inactive) a. Cholecystectomy. b. Lysis of adhesions. c. Hysterectomy. d. Oophorectomy. Status post abdominal hysterectomy (Inactive) Status post breast biopsy (Inactive) Status post cholecystectomy (Inactive) Social History Smoking/Tobacco Use Status: Never Alcohol Intake: never Drug use: Never Substance use type: does not use Do you feel safe at home: Yes Do you feel safe in your relationship?: Yes Exam Narrative Exam Narrative: GEN: awake, alert, oriented 3. Pleasant, well groomed, interactive, anxious. HEAD: Normocephalic, atraumatic ENT: Mucous membranes moist, oropharynx unremarkable, External ear exam unremarkable EYES: PERRL, EOMI NECK: Full ROM, no JOSIAH, no menigismus CHEST/RESP: Nontender, clear to auscultation bilateral, no wheeze/rhonchi/rales CARDIOVASCULAR: RRR, no murmur, rub beth. 2+ Rad pulse bilateral ABDOMEN: Soft, nontender, no mass. +Bowel sounds EXT: Full ROM, no edema, no rash Neuro: Grossly normal neurologic exam, conversant, interactive. Psych: Speech fluent, thoughts congruent, affect anxious Course Vital Signs Vital signs: Vital Signs Temperature 36.6 C 08/30/19 11:43 Pulse 76 08/30/19 11:43 Respiratory Rate 18 08/30/19 11:43 Blood Pressure 133/50 L 08/30/19 11:43 Pulse Oximetry 98 08/30/19 11:43 Temperature 36.6 C 08/30/19 11:43 Temperature Source Temporal Artery Scan 08/30/19 11:43 Pulse 76 08/30/19 11:43 Respiratory Rate 18 08/30/19 11:43 Blood Pressure 133/50 L 08/30/19 11:43 Blood Pressure Position Sitting 08/30/19 11:43 Pulse Oximetry 98 08/30/19 11:43 Oxygen Delivery Method Room Air 08/30/19 11:43 Oxygen Flow Rate 0 08/30/19 11:43 Pain Level 0 08/30/19 11:43
[2019-08-30] MEDS: LORazepam 0.5 MG TAB PO (12:03)
[2019-08-30 13:08] VITALS: BP 133/50; PULSE 76; RESP 18; TEMP 36.6; O2SAT 98
--- NOTE | 2019-08-30 16:23 | NUR.NOTE ---
referral faxed to [facility] Dr. Moulton.Nursing Note:
== END 2019-08-30 13:10 | disposition home or self-care (01) ==
PROVIDERS: Emergency Provider Emergency Medicine; PCP Family Medicine
DX: F41.9 Anxiety disorder, unspecified (principal)
CPT/HCPCS: 99283

== ENCOUNTER 2019-09-18 10:07 | Emergency (ER) | payer MEDICARE, SELFPAY ==
[2019-09-18 10:09] VITALS: BP 144/58; PULSE 78; RESP 18; TEMP 36.3; O2SAT 98
[2019-09-18 10:15] VITALS: RESP 18
--- NOTE | 2019-09-18 10:22 | DI.CT_ITS ---
EXAM: CT ABDOMEN PELVIS WO CLINICAL HISTORY: Nausea vomiting diarrhea, left abd pain TECHNIQUE: Noncontrast COMPARISON: CT ABDOMEN PELVIS WO from 08/28/2019 FINDINGS: Numerous diverticula are again noted greatest in the sigmoid region of the colon. There is now mild wall thickening as well as mild mild stranding in the surrounding fat, consistent with mild divertic ulitis. No abscess or perforation is seen. The patient is status post hysterectomy. The bladder is unremarkable. There are some bilateral nonobstructing renal calculi. The lung bases are clear. Eliu israel is status post cholecystectomy. The liver, spleen, and adrenals are unremarkable. The pancrea s is again noted to be atrophic. There is a diverticulum of the 2nd portion of the duodenum but no e vidence of inflammation. There is a tiny fat containing umbilical hernia. Degenerative changes are noted in the spine. IMPRESSION: Mild sigmoid diverticulitis.
--- NOTE | 2019-09-18 10:30 | DI.RAD_ITS ---
EXAM: XR CHEST 2V PA LATERAL INDICATION: Crackles in left lower lung. COMPARISON: XR PORTABLE CHEST AP from 08/25/2019 TECHNIQUE: 2D digital imaging was performed. FINDINGS: The heart is enlarged, unchanged. There is stable pulmonary vascular prominence. No superimposed i nfiltrate, effusion or pulmonary edema is seen. IMPRESSION: No acute abnormality.
--- NOTE | 2019-09-18 10:47 | ED.GENADUL_ITS ---
Discharge Plan Disposition Patient Disposition: HOME Condition: Improving Discharge Details Chief Complaint: GenMedical Clinical Impression: Diverticulitis Primary Care Provider: Larry Moulton ED Provider: Raul Wong Home Meds and New Rx's Prescriptions: New amoxicillin-pot clavulanate [Augmentin] 875-125 mg tablet 1 tab PO BID Qty: 20 RF: 0 ondansetron 4 mg tablet,disintegrating 4 mg PO Q6H PRN (Reason: nausea and vomiting) Qty: 10 RF: 0 Continued (DME) blood-glucose meter [OneTouch Ultra2 Meter] kit See Dose Instructions .ROUTE .MEDSUPPLY Qty: 1 RF: 0 sertraline 25 mg tablet 50 mg PO DAILY RF: 0 donepezil 10 mg tablet 10 mg PO DAILY Qty: 30 RF: 11 metformin 1,000 mg tablet 1,000 mg PO BID Qty: 180 RF: 4 (DME) lancets [Prodigy Lancets] 1 EACH misc 1 ea Miscellaneous BID Qty: 100 RF: 6 (DME) lancets [OneTouch Delica Lancets] 1 EACH misc 1 ea Miscellaneous BID Qty: 100 RF: 4 (DME) OneTouch Ultra Test strip 1 ea Miscellaneous BID Qty: 100 RF: 4 simvastatin [Zocor] 40 mg tablet 40 mg PO DAILY Qty: 90 RF: 4 paroxetine HCl [Paxil] 20 mg tablet 20 mg PO DAILY Qty: 90 RF: 4 lorazepam 0.5 mg tablet 0.5 mg PO BID PRN (Reason: anxiety) Qty: 10 RF: 0 albuterol sulfate [Ventolin HFA] 60 PUFF HFA aerosol inhaler 2 puff Inhalation Q4H PRN PRNQty: 1 RF: 0 pantoprazole [Protonix] 20 mg tablet,delayed release (DR/EC) 20 mg PO DAILY Qty: 14 RF: 0 acetaminophen [Tylenol] 325 mg Tablet 650 mg PO Q6H PRN PRNQty: 0 RF: 0 Discharge Instructions Instructions: Diverticulitis (ED), Diverticulitis Diet (ED) Additional Instructions: It is very important that you take your antibiotic twice daily for the full 10 days. You may use the prescribed nausea medication only if needed for nausea type symptoms otherwise you do not need to take this regularly. Return to the emergency department for any return of nausea and vomiting, fever chills, worsening of symptoms otherwise follow-up with your primary care office early next week for reassessment. Referrals: Larry Moulton MD [Primary Care Provider] - (Follow-up early next week for reassessment. Call the office for arrangement of follow-up appointment) Discharge Data Discharge Date/Time-TO BE ENTERED AT DEPARTURE: 09/18/19 13:34 Medical Decision Making Patient presenting to the emergency department for chief complaint of nausea vomiting diarrhea. Patient states abruptly at 8 AM she started having nausea and vomiting and has vomited approximately 3 times had diarrhea 3-5 times. Patient denies any other symptoms including chest pain, cough, fever chills, or abdominal pain. Patient does state that she started a new medication this morning but is unsure what it is. Physical exam shows a well-appearing patient in no signs of distress, nontoxic in appearance, cardiac exam shows a systolic murmur otherwise unremarkable, patient does have crackles in the left lower lung, abdominal exam shows normal active bowel sounds in all quadrants but patient does have some mild left lower quadrant tenderness to deep palpation. Plan to check labs and CT imaging. Review of previous records does show patient has had multiple visits for similar complaint that has been related to patient's anxiety, and that patient did just start Aricept which is known to cause some abdominal pain nausea vomiting. I feel this is reassuring especially given if patient has benign work-up. We will continue to monitor patient. Review of patient's labs show a very mild leukocytosis, CMP does show decreased potassium elevated anion gap and glucose otherwise unremarkable laboratory work- up. Given decreased potassium patient was ordered oral potassium 40 mEq and 500 mL's of NS given elevated anion gap that I feel is secondary to vomiting. Chest x-ray and CT imaging were reviewed and chest x-ray shows no acute abnormality and CT imaging shows very mild sigmoid diverticulitis. Patient reassessed and states full improvement of symptoms, is now tolerating p.o. intake, has no more nausea vomiting diarrhea or abdominal pain. Given patient's initial complaint of nausea and vomiting with findings of diverticulitis and patient's age I did discuss admission with patient. Patient states that she wants to go home and does not want to be admitted to the hospital. Given this I did call patient's primary care provider for arrangement of close follow-up preferably early next week and plan to place patient on Augmentin for 10 days. Spoke with patient's primary care provider Dr. Moulton whom stated that they should be able to see patient early next week for reassessment. Return precautions were discussed with patient and patient is agreeable to returning for any new or significant worsening of symptoms. After discussion of diagnosis and plan of care patient has no further needs, questions, or concerns and states clear understanding to return to the emergency department for any worsening symptoms. HPI General Mode of arrival: EMS . Date/Time Provider Initiated Documentation: 09/18/19 10:08 . Limitations to Documentation: no limitations . Information obtained by: patient, RN notes reviewed and old records reviewed . History of Present Illness 84 year old F presents to the emergency department with the chief complaint of Nausea vomiting diarrhea, described as moderate and similar to prior episodes, Quality is described as other (Denies pain or discomfort), Patient started experiencing this hour(s) (2) and it has been constant. No relieving factors improve symptom(s), Other factors that worsen symptoms (Started new medication this morning) . Patient notes no other symptoms.. Patient did receive the following treatments prior to arrival, other (EMS gave ODT Zofran) Related Data Home Medications Medication Instructions Recorded Confirmed albuterol sulfate [Ventolin HFA] 2 puff INHALATION Q4H PRN PRN #1 04/25/14 09/18/19 inh lancets [Prodigy Lancets] #100 ea 08/17/15 09/18/19 lancets [OneTouch Delica Lancets] #100 ea 03/22/16 09/18/19 metformin 1,000 mg tablet 1,000 mg PO BID #180 tab-cap 09/19/18 09/18/19 blood-glucose meter #1 each 01/22/19 09/18/19 blood sugar diagnostic #100 strip 03/04/19 09/18/19 paroxetine HCl 20 mg tablet 20 mg PO DAILY #90 tab 05/05/19 09/18/19 simvastatin 40 mg tablet 40 mg PO DAILY #90 tab 05/05/19 09/18/19 acetaminophen [Tylenol] 650 mg PO Q6H PRN PRN #0 tab 08/26/19 09/18/19 pantoprazole [Protonix] 20 mg PO DAILY #14 tab 08/28/19 09/18/19 lorazepam 0.5 mg tablet 0.5 mg PO BID PRN #10 tab 09/11/19 09/18/19 donepezil 10 mg tablet 10 mg PO DAILY #30 tab 09/17/19 09/18/19 sertraline 25 mg tablet 50 mg PO DAILY tab 09/17/19 09/18/19 amoxicillin-pot clavulanate 1 tab PO BID #20 tab 09/18/19 [Augmentin] ondansetron 4 mg PO Q6H PRN #10 tab 09/18/19 Previous Rx's Medication Instructions Recorded albuterol sulfate [Ventolin HFA] 2 puff INHALATION Q4H PRN PRN #1 04/25/14 inh metformin 1,000 mg tablet 1,000 mg PO BID #180 tab-cap 09/19/18 blood-glucose meter #1 each 01/22/19 blood sugar diagnostic #100 strip 03/04/19 paroxetine HCl 20 mg tablet 20 mg PO DAILY #90 tab 05/05/19 simvastatin 40 mg tablet 40 mg PO DAILY #90 tab 05/05/19 acetaminophen [Tylenol] 650 mg PO Q6H PRN PRN #0 tab 08/26/19 pantoprazole [Protonix] 20 mg PO DAILY #14 tab 08/28/19 lorazepam 0.5 mg tablet 0.5 mg PO BID PRN #10 tab 09/11/19 donepezil 10 mg tablet 10 mg PO DAILY #30 tab 09/17/19 amoxicillin-pot clavulanate 1 tab PO BID #20 tab 09/18/19 [Augmentin] ondansetron 4 mg PO Q6H PRN #10 tab 09/18/19 Allergies Allergy/AdvReac Type Severity Reaction Status Date / Time iodine Allergy Unknown Unverified 09/18/19 10:14 General Stated Complaint: GenMedical RASHEL: 3 Review of Systems Constitutional Constitutional: Denies chills and Denies fever(s) Cardiovascular Cardiovascular: Denies chest pain and Denies dyspnea Respiratory Respiratory: Denies cough and Denies dyspnea Gastrointestinal Gastrointestinal: Reports as per HPI, Denies abdominal pain, Denies constipation, Reports diarrhea, Reports nausea and Reports vomiting Genitourinary Genitourinary: Denies dysuria PFSH Medical History Anxiety (Chronic) Depression (Inactive) Diabetes mellitus (Inactive) Times 3 years. History of CVA (cerebrovascular accident) (Inactive 12/02/91) a. 1992. 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 Cholecystectomy. b. Lysis of adhesions. c. Hysterectomy. d. Oophorectomy. Status post abdominal hysterectomy (Inactive) Status post breast biopsy (Inactive) Status post cholecystectomy (Inactive) Family History Son , age 52 Sudden cardiac arrest Father , killed by Nazis in front of her when she was 10 yo Murder Social History Smoking/Tobacco Use Status: Former Tobacco Use Tobacco: How many years used: 1 Second Hand Exposure: Yes Alcohol Intake: never Drug use: Never Substance use type: does not use Caregiver/Support person: No Household members: none Housing: apartment Number of Children: 1 number of grandchildren: 1 Communication Needs: Corrective Lenses Education Level: middle school Do you need help understanding health information?: Always 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 Pets and animals: No What is your relationship status?: How often do you talk on the phone with friends or family?: never How often do you get together with friends or relatives?: three or more times per week How often do you attend sikh or anabaptist services?: 4 or more times per year Panel score (0-1 are the most socially isolated patients): 2 What type of physical activity do you participate in: walking Duration: < 15 minutes/day Frequency: 1-2 times per week Marielle/Anabaptism: Hinduism Special marielle needs: No Seatbelt use: always Water heater temp set <120 deg: Yes Working smoke detector in home: Yes Fire extinguisher in home: Yes Do you feel safe at home: Yes Do you feel safe in your relationship?: Yes Additional Social history: in 1998. Lives in [place]. Moved in 2012. Has one granddaughter, only living relative. Lives in [place]. Social. Often sits on porch of [place] and greets people. Exam Const General: cooperative Orientation: alert, awake and oriented x3 Resp Effort & Inspection: normal respiratory effort and able to speak in complete sentences Auscultation: clear to auscultation bilaterally Cardio Rate: regular rate Rhythm: regular rhythm Heart Sounds: murmur systolic III/ GI Palpation: soft, no hepatosplenomegaly, not firm, no guarding, no masses, no pulsatile masses, not rigid, no splenomegaly and tender in the LLQ; not at McBurney's point, Alejandro's sign negative and Rovsing's sign negative Auscultation: normal bowel sounds Back/Spine/Pelvis Back: no CVA tenderness Neuro General: alert, awake, oriented x3, gait normal and moves all extremities Course Vital Signs Vital signs: Vital Signs Temperature 36.3 C L 09/18/19 10:09 Pulse 78 09/18/19 10:09 Respiratory Rate 18 09/18/19 10:09 Blood Pressure 144/58 H 09/18/19 10:09 Pulse Oximetry 98 09/18/19 10:09 Temperature 36.3 C L 09/18/19 10:09 Temperature Source Skin 09/18/19 10:09 Pulse 78 09/18/19 10:09 Respiratory Rate 18 09/18/19 10:15 Respiratory Effort 09/18/19 10:15 Blood Pressure 144/58 H 09/18/19 10:09 Blood Pressure Position Supine 09/18/19 10:09 Pulse Oximetry 98 09/18/19 10:09 Oxygen Delivery Method Room Air 09/18/19 10:09 Oxygen Flow Rate 0 09/18/19 10:09 Pain Level 0 09/18/19 10:09
[2019-09-18 10:51] LABS: Abs Immature Grans 0.03 k/cumm (0.0-0.09); Absolute Basophil Count 0.02 k/cumm (0.0-0.2); Absolute Eosinophil Count 0.05 k/cumm (0.0-0.7); Absolute Monocyte Count 0.52 k/cumm (0.11-0.7); Absolute Neutrophil Count 9.65 k/cumm (1.2-6.7); Basophils % 0.2; Eosinophils % 0.4; HCT 38.6 % (36.0-46.0); HGB 12.4 g/dL (12.0-15.5); Immature Grans % 0.3; Lymphocytes % 12.7; Mean Corp. HGB Concentration 32.1 g/dL (32.0-36.0); Mean Corpuscular Hemoglobin 28.2 pg (27.0-33.0); Mean Corpuscular Volume 87.7 fL (80-95); Mean Platelet Volume 9.1 fL (8.0-11.0); Monocytes % 4.4; Platelet Count 283 x1000/uL (130-400); RBC Distribution Width 14.3 % (11.7-14.6); White Blood Cell Count 11.77 k/cumm (4.4-10.8)
[2019-09-18 10:54] LABS: Absolute Lymphocyte Count 1.49 k/cumm (1.2-3.4)
[2019-09-18 11:02] LABS: ALT 16 U/L (14-59); AST 17 U/L (15-37); Albumin 3.5 g/dL (3.4-5.0); Alkaline Phosphatase 76 U/L (46-116); Anion Gap 15.7 mmol/L (3-11); Bilirubin, Total 0.4 mg/dL (0.2-1.0); CO2 22.3 mmol/L (21.0-32.0); CREATININE 0.95 mg/dL (0.55-1.02); Calcium 8.5 mg/dL (8.5-10.1); Chloride 104 mmol/L (98-107); Estimated GFR 56.32 (mL/min/1.73m2); Glucose 215 mg/dL (70-100); Lipase 63 U/L (73-393); Sodium 142 mmol/L (136-145)
[2019-09-18 11:12] LABS: BUN 6 mg/dL (7-18)
[2019-09-18] MEDS: Normal Saline 500 ML IV (11:38)
[2019-09-18] MEDS: Potassium Chloride 20 MEQ TABCR 40 MEQ PO (11:48)
[2019-09-18 13:28] VITALS: BP 139/52; PULSE 74; TEMP 36.5; O2SAT 98
[2019-09-18] MEDS: Amoxicillin 875/Clav. 125 TAB PO (13:30)
--- NOTE | 2019-09-18 17:03 | NUR.NOTE ---
Nursing Note: Referral faxed to PCP for follow up Mon or . [place] [place].
== END 2019-09-18 13:34 | disposition home or self-care (01) ==
PROVIDERS: Emergency Provider Nurse Practitioner Family; PCP Family Medicine
DX: K57.32 Diverticulitis of large intestine without perforation or abscess without bleeding (principal); E11.9 Type 2 diabetes mellitus without complications; Z79.84 Long term (current) use of oral hypoglycemic drugs
CPT/HCPCS: 80053; 83690; 96360; 99285; 71046; 74176; 85025; 99284

== ENCOUNTER 2019-09-19 06:16 | Inpatient (IN) | payer MEDICARE, SELFPAY ==
[2019-09-19] VITALS (32 sets, daily range): BP systolic 107–155; BP diastolic 47–138; PULSE 51–69; RESP 16–20; TEMP 36.5–37; O2SAT 84–100
--- NOTE | 2019-09-19 06:02 | ED.GENADUL_ITS ---
Discharge Plan Disposition Patient Disposition: [facility] INPATIENT Condition: Stable Discharge Details Chief Complaint: Nausea/Vomit/Diar Clinical Impression: Diverticulitis, Dehydration, Adult failure to thrive Primary Care Provider: Larry Moulton ED Provider: Alberto Weeks Home Meds and New Rx's Prescriptions: No Action (DME) blood-glucose meter [OneTouch Ultra2 Meter] kit See Dose Instructions .ROUTE .MEDSUPPLY Qty: 1 RF: 0 sertraline 25 mg tablet 50 mg PO DAILY RF: 0 donepezil 10 mg tablet 10 mg PO DAILY Qty: 30 RF: 11 metformin 1,000 mg tablet 1,000 mg PO BID Qty: 180 RF: 4 (DME) lancets [Prodigy Lancets] 1 EACH misc 1 ea Miscellaneous BID Qty: 100 RF: 6 (DME) lancets [OneTouch Delica Lancets] 1 EACH misc 1 ea Miscellaneous BID Qty: 100 RF: 4 (DME) OneTouch Ultra Test strip 1 ea Miscellaneous BID Qty: 100 RF: 4 simvastatin [Zocor] 40 mg tablet 40 mg PO DAILY Qty: 90 RF: 4 paroxetine HCl [Paxil] 20 mg tablet 20 mg PO DAILY Qty: 90 RF: 4 lorazepam 0.5 mg tablet 0.5 mg PO BID PRN (Reason: anxiety) Qty: 10 RF: 0 albuterol sulfate [Ventolin HFA] 60 PUFF HFA aerosol inhaler 2 puff Inhalation Q4H PRN PRNQty: 1 RF: 0 pantoprazole [Protonix] 20 mg tablet,delayed release (DR/EC) 20 mg PO DAILY Qty: 14 RF: 0 acetaminophen [Tylenol] 325 mg Tablet 650 mg PO Q6H PRN PRNQty: 0 RF: 0 amoxicillin-pot clavulanate [Augmentin] 875-125 mg tablet 1 tab PO BID Qty: 20 RF: 0 ondansetron 4 mg tablet,disintegrating 4 mg PO Q6H PRN (Reason: nausea and vomiting) Qty: 10 RF: 0 Medical Decision Making This is an 84-year-old female with history of diabetes, hypertension, depression, CVA, panic attacks. She was seen here earlier today by my colleague, laboratory and imaging work-up demonstrated mild diverticulitis, minimal elevation in WBC count. Patient did not want admission at that time, and requested to go home. The patient's PCP was contacted for close follow-up. Patient was discharged home with Augmentin. She presents today via EMS for evaluation of continued and unchanged mild abdominal pain, nausea and one episode of vomiting. She feels that she cannot keep anything down. She feels notably dry and states that the dry sensation in her mouth and throat is simply unbearable. She denies any change for her abdominal pain. She denies any chest pain or shortness of breath. She did recently have a negative cardiac work-up within the last 3 weeks including negative serial troponins and stress testing. Physical exam demonstrates unremarkable vital signs, mild left lower quadrant abdominal tenderness consistent with her sigmoid diverticulitis. Patient is re questing admission at this time as it was post to her on her previous visit. We will rehydrate the patient, give Zofran, screening EKG, and reevaluate and reassess. Currently she shows no signs of an acute surgical abdomen, and with no worsening of her symptoms I see no clinical indication for repeat imaging. 8:01 AM Repeat laboratory work-up is relatively equivocal. No significant white count or bandemia, function relatively stable, minimal anion gap of 12, calcium low at 8 however this is likely secondary to low albumin. Lipase normal. Patient feels slightly better with fluids Zofran. I did contact case management on potential disposition regards to additional help and benefit at home versus admission and he is management does feel that with her history, they feel that they can better serve her chronic needs with no observation stay. I do feel this is both reasonable and appropriate for the patient. I did contact the hospitalist Dr. Pierre, we discussed the assessment and plan, Dr. Pierre has agreed to accept the patient for admission, and will be placing orders including for antibiotics. Diagnosis failure to thrive, vomiting, diverticulitis. I have extensively reviewed the treatment plan with the patient. I have addressed all patient concerns at this time. I have also discussed the plan with the admitting physician and they agree with the current assessment and plan and have agreed to assume responsibility for the patient. All parties demonstrate verbal understanding and agreement with our assessment and plan at this time. 6:23 AM Rate 62, intervals normal, no significant ST elevations or depression, nonspecific T wave inversions in V1 through V3 as well as in lead III. RSR prime in V1 and V2, as well as lead III. Findings appear consistent with prior EKG from 08/28/2019. No evidence of STEMI. HPI General Date/Time Provider Initiated Documentation: 09/19/19 06:24 . HPI Narrative: This is an 84-year-old female with history of diabetes, hypertension, depression, CVA, panic attacks. She was seen here earlier today by my colleague, laboratory and imaging work-up demonstrated mild diverticulitis, minimal elevation in WBC count. Patient did not want admission at that time, and requested to go home. The patient's PCP was contacted for close follow-up. Patient was discharged home with Augmentin. She presents today via EMS for evaluation of continued and unchanged mild abdominal pain, nausea and one episode of vomiting. She states that she did try to take her Zofran at home but in spite of taking this she still has her persistent nausea and vomiting. She denies any significant worsening of her abdominal pain. She denies any hematemesis. She denies any chest pain, shortness of breath, chest tightness, or chest pressure. Of note she recently had multiple negative serial troponins within the last 3 weeks, as well as negative stress testing. She denies any other complaints at this time. Related Data Home Medications Medication Instructions Recorded Confirmed albuterol sulfate [Ventolin HFA] 2 puff INHALATION Q4H PRN PRN #1 04/25/14 09/19/19 inh lancets [Prodigy Lancets] #100 ea 08/17/15 09/18/19 lancets [OneTouch Delica Lancets] #100 ea 03/22/16 09/18/19 metformin 1,000 mg tablet 1,000 mg PO BID #180 tab-cap 09/19/18 09/19/19 blood-glucose meter #1 each 01/22/19 09/18/19 blood sugar diagnostic #100 strip 03/04/19 09/18/19 paroxetine HCl 20 mg tablet 20 mg PO DAILY #90 tab 05/05/19 09/19/19 simvastatin 40 mg tablet 40 mg PO DAILY #90 tab 05/05/19 09/19/19 acetaminophen [Tylenol] 650 mg PO Q6H PRN PRN #0 tab 08/26/19 09/19/19 pantoprazole [Protonix] 20 mg PO DAILY #14 tab 08/28/19 09/19/19 lorazepam 0.5 mg tablet 0.5 mg PO BID PRN #10 tab 09/11/19 09/19/19 donepezil 10 mg tablet 10 mg PO DAILY #30 tab 09/17/19 09/19/19 sertraline 25 mg tablet 50 mg PO DAILY tab 09/17/19 09/19/19 amoxicillin-pot clavulanate 1 tab PO BID #20 tab 09/18/19 09/19/19 [Augmentin] ondansetron 4 mg PO Q6H PRN #10 tab 09/18/19 09/19/19 Previous Rx's Medication Instructions Recorded albuterol sulfate [Ventolin HFA] 2 puff INHALATION Q4H PRN PRN #1 04/25/14 inh metformin 1,000 mg tablet 1,000 mg PO BID #180 tab-cap 09/19/18 blood-glucose meter #1 each 01/22/19 blood sugar diagnostic #100 strip 03/04/19 paroxetine HCl 20 mg tablet 20 mg PO DAILY #90 tab 05/05/19 simvastatin 40 mg tablet 40 mg PO DAILY #90 tab 05/05/19 acetaminophen [Tylenol] 650 mg PO Q6H PRN PRN #0 tab 08/26/19 pantoprazole [Protonix] 20 mg PO DAILY #14 tab 08/28/19 lorazepam 0.5 mg tablet 0.5 mg PO BID PRN #10 tab 09/11/19 donepezil 10 mg tablet 10 mg PO DAILY #30 tab 09/17/19 amoxicillin-pot clavulanate 1 tab PO BID #20 tab 09/18/19 [Augmentin] ondansetron 4 mg PO Q6H PRN #10 tab 09/18/19 Allergies Allergy/AdvReac Type Severity Reaction Status Date / Time iodine Allergy Unknown Unverified 09/19/19 06:35 General RASHEL: 3 Review of Systems Review of Systems ROS Unobtainable: All systems reviewed & are unremarkable except as noted in HPI and below PFSH Social History Smoking/Tobacco Use Status: Former Tobacco Use Tobacco: How many years used: 1 Second Hand Exposure: Yes Alcohol Intake: never Drug use: Never Substance use type: does not use Caregiver/Support person: No Household members: none Housing: apartment Number of Children: 1 number of grandchildren: 1 Communication Needs: Corrective Lenses Education Level: middle school Do you need help understanding health information?: Always 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 Pets and animals: No What is your relationship status?: How often do you talk on the phone with friends or family?: never How often do you get together with friends or relatives?: three or more times per week How often do you attend judaism or episcopal services?: 4 or more times per year Panel score (0-1 are the most socially isolated patients): 2 What type of physical activity do you participate in: walking Duration: < 15 minutes/day Frequency: 1-2 times per week Marielle/Yazdanism: Jew Special marielle needs: No Seatbelt use: always Water heater temp set <120 deg: Yes Working smoke detector in home: Yes Fire extinguisher in home: Yes Do you feel safe at home: Yes Do you feel safe in your relationship?: Yes Additional Social history: in 1998. Lives in [place]. Moved in 2012. Has one granddaughter, only living relative. Lives in [place] Social. Often sits on porch of [place] and greets people. Exam Narrative Exam Narrative: 1.Const: Well-nourished, Well-developed, appearing stated age 2.Eyes: PERRL, no conjunctival injection, and symmetrical lids. 3.ENT: Atraumatic external nose and ears. dry MM. Neck: Symmetric, trachea midline, No thyromegaly. 4.CVS: +S1/S2, notable systolic murmur. Peripheral pulses 2+ and equal in all extremities. Brisk capillary refill in all extremities. 5.RESP: Unlabored respiratory effort. Clear to auscultation bilaterally. No wheezes rales or rhonchi 6.GI: Soft, mild left lower quadrant abdominal tenderness. No guarding or rebound. No epigastric pain. No clinical evidence of an acute surgical abdomen. 7.MSK: Normocephalic/Atraumatic, Extremities w/o deformity or ttp No cyanosis or clubbing, Normal movement of all extremities 8.Skin: Warm, Dry. No rashes or lesions. 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 Sensation grossly intact, no focal neurologic deficits. 10.Psych: (AAO) x3. Appropriate mood and affect Sign Out Sign Out Data: Sign Out Comment: Diagnosed with diverticulitis yesterday, started on Augmentin, difficulty tolerating p.o. Appears mildly dehydrated. Pending labs and case management evaluation for potential increased home health needs versus admission. Last updated by Alberto Weeks DO at 09/19/19 07:29
[2019-09-19 06:37] LABS: Abs Immature Grans 0.01 k/cumm (0.0-0.09); Absolute Basophil Count 0.03 k/cumm (0.0-0.2); Absolute Eosinophil Count 0.21 k/cumm (0.0-0.7); Absolute Lymphocyte Count 1.56 k/cumm (1.2-3.4); Absolute Monocyte Count 0.52 k/cumm (0.11-0.7); Absolute Neutrophil Count 6.84 k/cumm (1.2-6.7); Basophils % 0.3; Eosinophils % 2.3; HCT 37.8 % (36.0-46.0); HGB 12.4 g/dL (12.0-15.5); Immature Grans % 0.1; Mean Corp. HGB Concentration 32.8 g/dL (32.0-36.0); Mean Corpuscular Hemoglobin 28.8 pg (27.0-33.0); Mean Corpuscular Volume 87.9 fL (80-95); Mean Platelet Volume 10.1 fL (8.0-11.0); Monocytes % 5.7; Neutrophils % 74.6; Platelet Count 159 x1000/uL (130-400); RBC Distribution Width 14.2 % (11.7-14.6); White Blood Cell Count 9.17 k/cumm (4.4-10.8)
[2019-09-19] MEDS: Ondansetron 4 MG/2 ML VIAL IVP (06:51)
[2019-09-19] MEDS: Normal Saline 1,000 ML 1000 ML IV (06:51)
[2019-09-19 07:30] LABS: ALT 14 U/L (14-59); AST 11 U/L (15-37); Albumin 3.1 g/dL (3.4-5.0); Alkaline Phosphatase 69 U/L (46-116); Anion Gap 12.1 mmol/L (3-11); BUN 5 mg/dL (7-18); Bilirubin, Total 0.5 mg/dL (0.2-1.0); CO2 24.9 mmol/L (21.0-32.0); CREATININE 0.85 mg/dL (0.55-1.02); Chloride 105 mmol/L (98-107); Glucose 160 mg/dL (70-100); Lipase 42 U/L (73-393); Potassium 3.3 mmol/L (3.5-5.1); Sodium 142 mmol/L (136-145); Total Protein 6.2 g/dL (6.4-8.2)
[2019-09-19] MEDS: metroNIDAZOLE 500 MG/100 ML BAG 100 MG IVPB ×3 (08:24→23:30)
[2019-09-19] MEDS: Normal Saline 1,000 ML 100 ML IV (08:44)
[2019-09-19] MEDS: Enoxaparin 40 MG/0.4 ML SYR SC (10:27)
[2019-09-19] MEDS: CIPROFLOXACIN 200 MG/100 ML BAG 100 MG IVPB ×2 (10:34→21:10)
--- NOTE | 2019-09-19 11:40 | PT.INIE ---
Date of service: 09/19/19 Time of Service: 09:30 PT Notes Inpatient Physical Therapy Evaluation Date: September 19, 2019 Referring Doctor: Sierra Pierre MD PT Orders: PT CONSULT: Evaluate and treat limited ability Precautions: fall precautions Patient Profile/Admitting Diagnosis: Patient is a 84-year-old female admitted to [facility] on this date secondary to diverticulitis and dehydration. Patient states she came to the ER yesterday as well and was discharged home. She had similar symptoms at that point as well. She denies the use of any oxygen. PMHX: History of diabetes, hypertension, depression, CVA, panic attacks Social History/Home Situation: Patient resides at the [facility]. Baseline is ambulation with standard cane for community purposes. No assistive device in her apartment. Equipment Owned/DME: Standard cane and walker which she does not use the walker Subjective: I was having some difficulty breathing. Feeling better now. Unsure of how long I will be in the hospital. Patient agreeable to PT evaluation and treatment. Objective: General Observation: Patient upright sitting in chair at start of initial evaluation. IV in left upper extremity. Mental Status: Alert and orientated x3 Pain: No complaints ROM: Right Upper Extremity: Within functional limits Left Upper Extremity: Within functional limits Right Lower Extremity: Within functional limits Left Lower Extremity: Within functional limits Strength: Right Upper Extremity: Grossly 4/5 throughout Left Upper Extremity: Grossly 4/5 throughout Right Lower Extremity: Hip flexion, hamstrings hip adduction and quads 4/5. Hip abduction 4-/5 Left Lower Extremity: Hip abduction and quads 4-/5, hip flexion, hamstrings and hip adduction 4/5. Sensation: Intact sensation light touch throughout bilateral lower extremities Bed Mobility/Transfers: Formal bed mobility not tested. Patient reports independence with bed mobility. Sit to stand: Standby assist Stand to sit: Standby assist Gait: Patient ambulates 75 feet x 2 with contact-guard. No assistive device. Balance: Static Sitting: Good Dynamic Sitting: Good Static Standing: Fair Dynamic Standing: Fair Special Tests: Mobility Limitations Standardized Measure [facility] AM-PAC 6 clicks Basic Mobility Inpatient Short Form: Raw Score: 20 CMS Score 35.8 Informed Consent/Education: Patient instructed in purpose of PT consult and plan of care. Assessment: Patient is a 84 year old female referred to physical therapy services with the diagnosis of diverticulitis and dehydration. Patient presents with clinical signs and symptoms consistent with this diagnosis that have resulted to mobility limitations, gait instability and generalized weakness as demonstrated the following impairment levels: 1. Decreased strength bilateral lower extremity major muscle groups 2. Impaired standing balance 3. Impaired activity tolerance Impairments return to the following functional limitations: 1. Increased completion time for mobility ADL performance 2. Increased fall risk Impairments are contributing to the following functional limitations: AMPAC score. 35.8% Patient is assessed as a Low 06826 complexity based on the following: History: As above Examination: As above Presentation: Stable Decision Makin low complexity Goals: Goals X1 week 1. Supine-Sit independent 2. Sit-Supine independent 3. Sit-Stand independent 4. Stand-Sit dependent 5. Bed-Chair independent 6. Chair-Bed independent 7. Gait 250 feet standby assist 8. Stairs negotiate 5 with railing independent 9. Independent with home exercise program [] 10. Good static and dynamic standing balance/tolerance Plan of Care/Treatment Plan: 1-2x/day, 7 days/week x 1 week. Plan of care has been reviewed with the COMMUNITY MARKETING COORDINATOR providing the service under Physical Therapy direction. Initiate Physical Therapy intervention for strengthening, bed mobility, transfers, gait, stairs, balance training, use of assistive device. DISCHARGE RECOMMENDATIONS: Recommend discharge to home TREATMENT CODE/TIME: 11458 x30 minutes 930 to 10:00. Disclaimer: This note was created using [employer] voice recognition software. It was reviewed for major content. However, there may be multiple small discrepancies and errors due to the voice recognition aspects of the software. Karan Hammond PT, DPT
[2019-09-19] MEDS: Normal Saline Flush 10 ML SYR ×2 (12:09→12:27)
--- NOTE | 2019-09-19 12:17 | HPE_ITS ---
Date of service: 09/19/19 Time of Service: 12:18 Assessment and Plan Assessment and plan (1) Acute diverticulitis: Start date: 09/19/19 Start time: 14:24 Status: Acute Assessment and plan: Imaging revealing mild sigmoid diverticulitis. Started on augmentin for outpatient failed treatment, started on cipro and flagyl. Tigan for nausea. C/o diarrhea 2-3 times a day. WBC normalized. Hydrated with IVF. Continue to monitor. (2) Nausea & vomiting: Start date: 09/19/19 Start time: 14:31 Status: Acute Assessment and plan: Nausea and vomiting with diarrhea in setting of divertiuclitis (3) Mild cognitive impairment with memory loss: Start date: 09/19/19 Start time: 14:26 Status: Acute Assessment and plan: Seen by palliative, help with medication management, continue donepezil, also uses ativan for anxiety (4) History of DVT (deep vein thrombosis): Start date: 09/19/19 Start time: 14:28 Status: Chronic Assessment and plan: More than 20 years ago. IVC filter in place. (5) Essential hypertension: Start date: 09/19/19 Start time: 14:28 Status: Resolved Assessment and plan: normotensive at this time. Continue to monitor. Does not currently take anything at this time for HTN. (6) Anxiety: Start date: 09/19/19 Start time: 14:30 Status: Chronic Assessment and plan: History of anxiety and depression. Paxile and zoloft recently restarted. Monitor mood. Ativan as well as needed for anxiety. (7) Non-insulin dependent type 2 diabetes mellitus: Start date: 09/19/19 Start time: 14:32 Status: Acute Assessment and plan: Uses metformin at home. In setting of acute infection metformin on hold, will use SSI and monitor patient for acceptable glucose. History of Present Illness History of Present Illness Chief Complaint: Diverticulitis, Failed outpatient Therapy Narrative: 84 y.o Female with PMH of HTN, Type 2 DM, IVC filter for past DVT/PE 20 years ago. CVA, asthma, depression and bradycardia, cognitive impair with memory loss. Presents to [facility] ED with nausea, and diarrhea x 1 week. Seen yesterday for the same symptoms; imaging and laboratory work up revealed mild diverticulitis, minimal elevated WBC. She was discharged home on augmentin with close PCP follow up. Today she returned to the ED due to vomiting, and unchanged abdominal pain. We have been asked to admit her for further evaluation and management. She is being admitted to m/s for IV antibiotics of cipro and flagyl, hydration and medication for nausea. Labs today in ED reveal normal wbc, low potassium which she will be repleted, otherwise normal. She endoreses vomiting with diarrhea at least 3 times today. She denies pain however with palpation she does have RLQ pain worse then left. She is forgetful when asking her PMH she could not recall and when discussing with her about a clear diet she asked nursing for regular food however became sick with ice chips. Tigan ordered for nausea. She is a palliatve care patient, they will be consulted for goals of care. She denies SOB, CP. Review of Systems Review of Systems ROS Unobtainable: All systems reviewed & are unremarkable except as noted in HPI and below PFSH Medical History Anxiety (Chronic) Depression (Inactive) Diabetes mellitus (Inactive) Times 3 years. History of CVA (cerebrovascular accident) (Inactive 12/02/91) a. 1991. 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 Cholecystectomy. b. Lysis of adhesions. c. Hysterectomy. d. Oophorectomy. Status post abdominal hysterectomy (Inactive) Status post breast biopsy (Inactive) Status post cholecystectomy (Inactive) Family History Son , age 52 Sudden cardiac arrest Father , killed by Nazis in front of her when she was 10 yo Murder Social History Smoking/Tobacco Use Status: Former Tobacco Use Tobacco: How many years used: 1 Second Hand Exposure: Yes Alcohol Intake: never Drug use: Never Substance use type: does not use Caregiver/Support person: No Household members: none Housing: apartment Number of Children: 1 number of grandchildren: 1 Communication Needs: Corrective Lenses Education Level: middle school Do you need help understanding health information?: Always 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 Pets and animals: No What is your relationship status?: How often do you talk on the phone with friends or family?: never How often do you get together with friends or relatives?: three or more times per week How often do you attend holiness or latter day services?: 4 or more times per year Panel score (0-1 are the most socially isolated patients): 2 What type of physical activity do you participate in: walking Duration: < 15 minutes/day Frequency: 1-2 times per week Marielle/Temple: Nondenominational Special marielle needs: No Seatbelt use: always Water heater temp set <120 deg: Yes Working smoke detector in home: Yes Fire extinguisher in home: Yes Do you feel safe at home: Yes Do you feel safe in your relationship?: Yes Additional Social history: in 1998. Lives in [place]. Moved in 2012. Has one granddaughter, only living relative. Lives in [facility] Social. Often sits on porch of [employer] and [place] people. Meds Home Medications and Allergies Home Medications Medication Instructions Recorded Confirmed Type albuterol sulfate [Ventolin HFA] 2 puff INHALATION Q4H PRN PRN #1 04/25/14 09/19/19 Rx inh lancets [Prodigy Lancets] #100 ea 08/17/15 09/18/19 History lancets [OneTouch Delica Lancets] #100 ea 03/22/16 09/18/19 History metformin 1,000 mg tablet 1,000 mg PO BID #180 tab-cap 09/19/18 09/19/19 Rx blood-glucose meter #1 each 01/22/19 09/18/19 Rx blood sugar diagnostic #100 strip 03/04/19 09/18/19 Rx paroxetine HCl 20 mg tablet 20 mg PO DAILY #90 tab 05/05/19 09/19/19 Rx simvastatin 40 mg tablet 40 mg PO DAILY #90 tab 05/05/19 09/19/19 Rx acetaminophen [Tylenol] 650 mg PO Q6H PRN PRN #0 tab 08/26/19 09/19/19 Rx pantoprazole [Protonix] 20 mg PO DAILY #14 tab 08/28/19 09/19/19 Rx lorazepam 0.5 mg tablet 0.5 mg PO BID PRN #10 tab 09/11/19 09/19/19 Rx donepezil 10 mg tablet 10 mg PO DAILY #30 tab 09/17/19 09/19/19 Rx sertraline 25 mg tablet 50 mg PO DAILY tab 09/17/19 09/19/19 History amoxicillin-pot clavulanate 1 tab PO BID #20 tab 09/18/19 09/19/19 Rx [Augmentin] ondansetron 4 mg PO Q6H PRN #10 tab 09/18/19 09/19/19 Rx Allergies Allergy/AdvReac Type Severity Reaction Status Date / Time iodine Allergy Unknown Unverified 09/19/19 06:35 Exam Narrative Exam Narrative: Const:Sepulveda elderly female sitting up in bed. Able to recall some facts but not all. HENMT: Normalcephalic, atraumatic, PERRLA, mucous membranes moist. Neck: Supple no JVD Chest: normal inspection Respiratory: respirations even and unlabored. LSC Cardio: S1S2 bradycardia GI: pain with palpation to RLQ, soft, nondistended : deferred, Back/Spine: no CVA tenderness SKin: sepulveda, no open areas. Extrem: no clubbing, edema. Neuro: Alert, awake, cognitive impairment with memory loss Const General: cooperative, healthy appearing and no acute distress Nutritional Appearance: average body habitus Orientation: alert, awake and confused Limitations: other limitations HENMT Head: normal to inspection Results Labs Result diagrams: 09/19/19 06:26 09/19/19 06:26 Labs: Laboratory Results - last 24 hr 09/19/19 09/19/19 06:26 06:26 WBC 9.17 RBC 4.30 Hgb 12.4 Hct 37.8 MCV 87.9 MCH 28.8 MCHC 32.8 RDW 14.2 Plt Count 159 D MPV 10.1 Immature Gran % 0.1 Neutrophils % 74.6 Lymphocytes % 17.0 Monocytes % 5.7 Eosinophils % 2.3 Basophils % 0.3 Absolute Neutrophils 6.84 H Absolute Lymphocytes 1.56 Absolute Monocytes 0.52 Absolute Eosinophils 0.21 Absolute Basophils 0.03 Sodium 142 Potassium 3.3 L Chloride 105 Carbon Dioxide 24.9 Anion Gap 12.1 H BUN 5 L Creatinine 0.85 Estimated GFR/1.73 m2 >= 60.00 Glucose 160 H Calcium 8.0 L Total Bilirubin 0.5 AST 11 L ALT 14 Alkaline Phosphatase 69 Total Protein 6.2 L Albumin 3.1 L Lipase 42 L Last Vital Signs Temp 36.7 C 09/19/19 09:43 Pulse 51 L 09/19/19 09:43 Resp 20 09/19/19 09:43 BP 139/56 L 09/19/19 09:43 Pulse Ox 95 09/19/19 09:43
--- NOTE | 2019-09-19 13:00 | NUR.NOTE ---
Nursing Note: Patient is alert and oriented x 3. However, patient does not remember from one minute to the next. Patient is getting angry that she can not have food or fluids. Education has been provided each time. Patient is becoming angry stating that this personal lines underwriter is a pain in the ass
[2019-09-19] MEDS: LORazepam 0.5 MG TAB PO (13:14)
[2019-09-19] MEDS: Pantoprazole 20 MG TABCR PO (13:15)
[2019-09-19] MEDS: Sertraline 25 MG TAB 50 MG PO (13:15)
[2019-09-19] MEDS: PARoxetine 20 MG TAB PO (13:15)
[2019-09-19] MEDS: Donepezil 5 MG TAB 10 MG PO (13:15)
[2019-09-19] MEDS: POTASSIUM CHLORIDE/0.9% NACL 1,000 ML 100 MEQ IV (13:16)
--- NOTE | 2019-09-19 14:00 | PDOC.CMIN ---
Care Management Initial Assess REASON FOR HOSPITALIZATION:: Diverticulitis, Failure of Outpatient Therapy PAST MEDICAL HISTORY/PAST SURGICAL HISTORY:: Medical: Anxiety (Chronic), Depression (Inactive), Diabetes mellitus (Inactive) Times 3 years. History of CVA (cerebrovascular accident) (Inactive 12/02/91), Mild cognitive impairment with memory loss (Acute). Osteoarthrosis (Inactive), both hips, right greater than left, Osteopenia (Inactive), Panic attack (Inactive), Paroxetine withdrawal syndrome with perceptual disturbance (Acute), Rupture of tendon of biceps, long head (Resolved 10/31/07). Surgical: Abdominal hysterectomy, Biopsy of breast (~2003) left;neg. Cholecystectomy, History of bilateral salpingo-oophorectomy (Inactive). History of Surgical Procedures (Inactive): Cholecystectomy, Lysis of adhesions, Hysterectomy, Oophorectomy, Status post abdominal hysterectomy (Inactive), Status post breast biopsy (Inactive), Status post cholecystectomy (Inactive) PREVIOUS FUNCTIONAL STATUS/SOCIAL/FAMILY SUPPORTS:: Lives alone in her apartment at the [facility]. She participates in the Desk and is happy that a full meal is only $3.50. Currently had Nursing services to help with medication management and needs more help with cleaning the apartment weekly but has not yet received that service. States she has never heard of [facility] but would like help is she qualifies. Currently followed also by the Chronic Sales Support Manager at [facility]. Relies on her fwmale friend, Wanda Baxter, for support. Her only living relative, Granddaughter in [place], has never been close or involved in her life. CURRENT FUNCTIONAL STATUS:: Alyssa was sitting up in her recliner. Greeted me with a beautiful smile and readily engaed in conversation. Stated she did not know she was having trouble with her day to day memory. Discussed her current living situation and the possible need for more help. Discussed Level 3 placement using [facility] as an example. Stated she was familiar with that place but it was too expensive for her to go there. Alyssa wants to stay in her apartment and get more home services so that she will be able to manage. States she has never heard of [facility] but is interested in signing up if she can get more help to stay at home. She is a current Palliative care client last seen by Dr. Ramirez 09/02 with a follow up scheduled for 09/29. Inpatient consult ordered and faxed to the Office. ADVANCE DIRECTIVES:: None on file Has patient been provided with information about the portal?: No Did the patient sign up for the portal?: No CODE STATUS:: Full Code INSURANCE COVERAGE / FINANCIAL ISSUES:: Medicare CURRENT HOME/COMMUNITY SERVICES/EQUIPMENT:: HH PRIMARY CARE PHYSICIAN:: [facility] medical: Dr. Moulton POTENTIAL DISCHARGE NEEDS:: Increased Services, [facility] referral PATIENT/FAMILY EDUCATION NEEDS:: Discharge instructions ANTICIPATED BARRIERS TO DISCHARGE:: Safety concerns while living alone in her apartment TRANSPORTATION:: [facility] PLAN:: Return home to her apartment at [facility] with increased services. Transportation will be arranged through RCT when medically cleared for discharge.
[2019-09-19] MEDS: Normal Saline 500 ML IV (16:43)
[2019-09-19] MEDS: Simvastatin 40 MG TAB PO (19:35)
[2019-09-19 19:49] LABS: Bilirubin Small (Negative); Blood Negative (Negative); Clarity Sl Cloudy (Clear); Glucose 500 mg/dL (Negative); Ketones 40 mg/dL (Negative); Leukocyte Esterase Negative (Negative); Nitrite Negative (Negative); Urobilinogen 0.2 EU/dL (Up TO 0.2); pH 5.5 (5-8)
[2019-09-19 19:59] LABS: Bacteria Moderate HPF (Negative); Crystals Negative HPF (Negative); Epithelial Cells Many HPF (Negative); Mucus Negative (Negative); RBC 0-2 (0-2)
[2019-09-19 20:00] LABS: C & S Indicated? Yes; Casts Negative LPF (Negative)
[2019-09-20] VITALS (7 sets, daily range): BP systolic 100–138; BP diastolic 49–72; PULSE 51–70; RESP 17–20; TEMP 36.6–37; O2SAT 93–97
[2019-09-20] MEDS: Mylanta Suspension 30 ML CUP PO ×2 (02:22→14:51)
[2019-09-20] MEDS: Trimethobenzamide 200 MG/2 ML VIAL IM ×3 (04:50→15:37)
[2019-09-20 07:21] LABS: Abs Immature Grans 0.02 k/cumm (0.0-0.09); Absolute Basophil Count 0.03 k/cumm (0.0-0.2); Absolute Eosinophil Count 0.09 k/cumm (0.0-0.7); Absolute Lymphocyte Count 1.87 k/cumm (1.2-3.4); Absolute Neutrophil Count 6.98 k/cumm (1.2-6.7); Basophils % 0.3; Eosinophils % 0.9; HCT 34.9 % (36.0-46.0); HGB 10.9 g/dL (12.0-15.5); Immature Grans % 0.2; Lymphocytes % 19.7; Mean Corp. HGB Concentration 31.2 g/dL (32.0-36.0); Mean Corpuscular Hemoglobin 27.8 pg (27.0-33.0); Monocytes % 5.3; Neutrophils % 73.6; Platelet Count 256 x1000/uL (130-400); RBC 3.92 m/cumm (4.00-5.20); RBC Distribution Width 14.2 % (11.7-14.6); White Blood Cell Count 9.49 k/cumm (4.4-10.8)
[2019-09-20 07:39] LABS: Anion Gap 10.6 mmol/L (3-11); BUN 4 mg/dL (7-18); CO2 24.4 mmol/L (21.0-32.0); CREATININE 0.72 mg/dL (0.55-1.02); Chloride 105 mmol/L (98-107); Glucose 178 mg/dL (70-100); Magnesium 1.9 mg/dL (1.8-2.4); Potassium 3.1 mmol/L (3.5-5.1); Sodium 140 mmol/L (136-145)
[2019-09-20] MEDS: Normal Saline Flush 10 ML SYR IVP (08:00)
[2019-09-20] MEDS: metroNIDAZOLE 500 MG/100 ML BAG 100 MG IVPB (08:01)
[2019-09-20] MEDS: Donepezil 5 MG TAB 10 MG PO (08:05)
[2019-09-20] MEDS: PARoxetine 20 MG TAB PO (08:05)
[2019-09-20] MEDS: Sertraline 25 MG TAB 50 MG PO (08:06)
[2019-09-20] MEDS: Pantoprazole 20 MG TABCR PO (08:06)
[2019-09-20] MEDS: Insulin Aspart 300 UNITS/3 ML PEN SC ×3 (08:09→17:02)
[2019-09-20] MEDS: Potassium Chloride 20 MEQ TABCR 40 MEQ PO ×2 (09:28→13:50)
[2019-09-20] MEDS: Enoxaparin 40 MG/0.4 ML SYR SC (10:34)
[2019-09-20] MEDS: Ciprofloxacin 500 MG TAB PO ×2 (11:58→19:52)
--- NOTE | 2019-09-20 12:01 | W.PM.PROGNOT ---
Date of Service Date of service: 09/20/19 Time of Service: 12:01 Assessment and Plan Assessment and plan (1) Acute diverticulitis: Start date: 09/20/19 Start time: 12:03 Status: Acute Assessment and plan: Unable to maintain IV access. Pain is improving. Transitioned to PO cipro and flagyl Started on PO zofran prior to antbx administration. Continue to monitor labs (2) Nausea & vomiting: Start date: 09/20/19 Start time: 12:04 Status: Acute Assessment and plan: In setting of diverticulitis. Continue Tigan QID Zofran PO prior to antbx administration (3) Mild cognitive impairment with memory loss: Start date: 09/20/19 Start time: 12:05 Status: Acute Assessment and plan: Dr. Rubio consulted for competency eval (4) History of DVT (deep vein thrombosis): Start date: 09/20/19 Start time: 12:06 Status: Chronic Assessment and plan: More than 20 years ago. IVC filter in place. (5) Essential hypertension: Start date: 09/20/19 Start time: 12:06 Status: Resolved Assessment and plan: Monitor. Continue home meds. (6) Anxiety: Start date: 09/20/19 Start time: 12:06 Status: Chronic Assessment and plan: History of anxiety and depression. Paxil and zoloft recently restarted. Monitor mood. Ativan as well as needed for anxiety. (7) Non-insulin dependent type 2 diabetes mellitus: Start date: 09/20/19 Start time: 12:06 Status: Acute Assessment and plan: Uses metformin at home. In setting of acute infection metformin on hold, will use SSI and monitor patient for acceptable glucose. Glucose 178 today by am labs. Subjective Subjective Patient reports: no new complaints Interval history since last seen: Psych ordered for competency evaluation as patient has very short term memory and continues to ask the same question. Unable to keep IV in place transitioned to PO Exam Narrative Exam Narrative: Const:Sepulveda elderly female sitting up in chair. Able to recall some facts but not all. HENMT: Normalcephalic, atraumatic, PERRLA, mucous membranes moist. Neck: Supple no JVD, goiter or lymphedema Chest: normal inspection Respiratory: respirations even and unlabored. LSC Cardio: S1S2 bradycardia GI: pain with palpation to RLQ, soft, nondistended : deferred, Back/Spine: no CVA tenderness SKin: sepulveda, no open areas. Extrem: no clubbing, edema. Neuro: Alert, awake, cognitive impairment with memory loss Const General: cooperative, healthy appearing and no acute distress Nutritional Appearance: average body habitus Orientation: alert, awake and confused Limitations: other limitations [facility] Head: normal to inspection Objective Objective Clinical Data: Abnormal lab results 09/19/19 09/20/19 09/20/19 Range/Units 19:41 06:55 06:55 RBC 3.92 L (4.00-5.20) m/cumm Hgb 10.9 L (12.0-15.5) g/dL Hct 34.9 L (36.0-46.0) % MCHC 31.2 L (32.0-36.0) g/dL Absolute Neutrophils 6.98 H (1.2-6.7) k/cumm Potassium 3.1 L (3.5-5.1) mmol/L BUN 4 L (7-18) mg/dL Glucose 178 H (70-100) mg/dL Calcium 8.0 L (8.5-10.1) mg/dL Urine Protein 30 H (Negative) mg/dL Urine Ketones 40 H (Negative) mg/dL Urine Bilirubin Small H (Negative) Urine Glucose 500 H (Negative) mg/dL Vital Signs Temperature 36.8 C 09/20/19 11:40 Temperature Source Tympanic 09/20/19 11:40 Pulse 69 09/20/19 11:40 Pulse Rhythm Regular 09/20/19 08:00 Respiratory Rate 18 09/20/19 11:40 Respiratory Effort Non-Labored 09/20/19 08:00 Respiratory Depth Normal 09/20/19 08:00 Respiratory Pattern Normal 09/20/19 08:00 Blood Pressure 100/61 09/20/19 11:40 Blood Pressure Mean 74 09/19/19 09:02 Pulse Oximetry 96 09/20/19 11:40 Oxygen Delivery Method Room Air 09/20/19 11:40 Oxygen Flow Rate 0 09/20/19 11:40 Pain Level 0 09/20/19 11:40 Comment 09/20/19 03:15 Intake & Output 09/19/19 09/20/19 09/20/19 23:59 11:59 23:59 Intake Total 1830.0097 / 3030.0097 990 / 990 Output Total 400 / 400 Balance 1430.0097 / 2630.0097 990 / 990 Weight 89.3 kg Intake: IV 950.0097 / 2150.0097 160 / 160 Oral 880 / 880 830 / 830 Output: Urine 400 / 400 Other: Urine Color Straw Urine Appearance Clear Urine Odor Normal Comment dark yellow urine. voided in the toilet Stool Size Small Stool Characteristics Soft Formed Brown Voiding Methods Toilet Laboratory Results WBC 9.49 k/cumm (4.4-10.8) 09/20/19 06:55 RBC 3.92 m/cumm (4.00-5.20) L 09/20/19 06:55 Hgb 10.9 g/dL (12.0-15.5) L 09/20/19 06:55 Hct 34.9 % (36.0-46.0) L 09/20/19 06:55 MCV 89.0 fL (80-95) 09/20/19 06:55 MCH 27.8 pg (27.0-33.0) 09/20/19 06:55 MCHC 31.2 g/dL (32.0-36.0) L 09/20/19 06:55 RDW 14.2 % (11.7-14.6) 09/20/19 06:55 Plt Count 256 x1000/uL (130-400) 09/20/19 06:55 MPV 9.0 fL (8.0-11.0) 09/20/19 06:55 Immature Gran % 0.2 09/20/19 06:55 Neutrophils % 73.6 09/20/19 06:55 Lymphocytes % 19.7 09/20/19 06:55 Monocytes % 5.3 09/20/19 06:55 Eosinophils % 0.9 09/20/19 06:55 Basophils % 0.3 09/20/19 06:55 Absolute Neutrophils 6.98 k/cumm (1.2-6.7) H 09/20/19 06:55 Absolute Lymphocytes 1.87 k/cumm (1.2-3.4) 09/20/19 06:55 Absolute Monocytes 0.50 k/cumm (0.11-0.7) 09/20/19 06:55 Absolute Eosinophils 0.09 k/cumm (0.0-0.7) 09/20/19 06:55 Absolute Basophils 0.03 k/cumm (0.0-0.2) 09/20/19 06:55 Sodium 140 mmol/L (136-145) 09/20/19 06:55 Potassium 3.1 mmol/L (3.5-5.1) L 09/20/19 06:55 Chloride 105 mmol/L (98-107) 09/20/19 06:55 Carbon Dioxide 24.4 mmol/L (21.0-32.0) 09/20/19 06:55 Anion Gap 10.6 mmol/L (3-11) 09/20/19 06:55 BUN 4 mg/dL (7-18) L 09/20/19 06:55 Creatinine 0.72 mg/dL (0.55-1.02) 09/20/19 06:55 Estimated GFR/1.73 m2 >= 60.00 (mL/min/1.73m2) 09/20/19 06:55 Glucose 178 mg/dL (70-100) H 09/20/19 06:55 Calcium 8.0 mg/dL (8.5-10.1) L 09/20/19 06:55 Magnesium 1.9 mg/dL (1.8-2.4) 09/20/19 06:55 Total Bilirubin 0.5 mg/dL (0.2-1.0) 09/19/19 06:26 AST 11 U/L (15-37) L 09/19/19 06:26 ALT 14 U/L (14-59) 09/19/19 06:26 Alkaline Phosphatase 69 U/L (46-116) 09/19/19 06:26 Total Protein 6.2 g/dL (6.4-8.2) L 09/19/19 06:26 Albumin 3.1 g/dL (3.4-5.0) L 09/19/19 06:26 Lipase 42 U/L (73-393) L 09/19/19 06:26 Urine Color Yellow (Yellow) 09/19/19 19:41 Urine Clarity Sl cloudy (Clear) 09/19/19 19:41 Urine pH 5.5 (5-8) 10/19/19 19:41 Ur Specific Crook 1.020 (1.005-1.025) 09/19/19 19:41 Urine Protein 30 mg/dL (Negative) H 09/19/19 19:41 Urine Ketones 40 mg/dL (Negative) H 09/19/19 19:41 Urine Blood Negative (Negative) 09/19/19 19:41 Urine Nitrite Negative (Negative) 09/19/19 19:41 Urine Bilirubin Small (Negative) H 09/19/19 19:41 Urine Urobilinogen 0.2 EU/dL (Up TO 0.2) 09/19/19 19:41 Ur Leukocyte Esterase Negative (Negative) 09/19/19 19:41 Urine RBC 0-2 (0-2) 09/19/19 19:41 Urine WBC 5-10 HPF (0-5) 09/19/19 19:41 Ur Epithelial Cells Many HPF (Negative) 09/19/19 19:41 Urine Crystals Negative HPF (Negative) 09/19/19 19:41 Urine Bacteria Moderate HPF (Negative) 09/19/19 19:41 Urine Casts Negative LPF (Negative) 09/19/19 19:41 Urine Mucus Negative (Negative) 09/19/19 19:41 Ur Culture Indicated? Yes 09/19/19 19:41 Urine Glucose 500 mg/dL (Negative) H 09/19/19 19:41
--- NOTE | 2019-09-20 12:09 | PT.INTREAT ---
Date of service: 09/20/19 Time of Service: 08:45 PT Notes Inpatient Physical Therapy Treatment Note [facility] Date: 09/20/19 SUBJECTIVE: Alyssa states that she is feeling better today. She offers no complaints to me. She is sitting in chair, just finishing her breakfast. OBJECTIVE: [] BED MOBILITY/TRANSFERS Sit-stand: S Stand-sit: S GAIT Assistive Device: no AD Weight bearing: full Assist: SBA Distance: 150' THEREX: performed seated ther ex routine for general strengthening. Will progress towards standing ex. See flowsheet for details. ASSESSMENT: tolerated session well. Pt c/o belly cramps during ex. She stopped ex to use toilet, and was tired afterwards. Will progress routine next session. PLAN: continue towards established goals. TREATMENT CODE/TIME: 30 min. [id number], [id number]
[2019-09-20] MEDS: metroNIDAZOLE 500 MG TAB PO ×2 (13:50→22:19)
--- NOTE | 2019-09-20 17:01 | PDOC.CMPRO ---
Care Management Progress Note S/O: Alyssa was sitting up in bed, smiling and very talkative. States she will not consider any option other than going home to the [facility] and her [place] neighbors and friends. Would like services from [facility] and any other Agency that can provide service to keep her home. Doesn,t feel that her memory problems should prevent her from returning to her home. A: 84 y.o. female admitted for diverticulitis and failure of outpatient treatment remains at an acute level of care today P: Alyssa will return to [facility] with increased services. Transportation to be arranged with [facility] when medically cleared for discharge.
[2019-09-20] MEDS: Ondansetron O.D.T. 4 MG TABEF PO (19:51)
[2019-09-20] MEDS: Simvastatin 40 MG TAB PO (19:52)
[2019-09-21] MEDS: LORazepam 0.5 MG TAB PO (00:58)
[2019-09-21 05:22] VITALS: BP 137/70; PULSE 65; RESP 17; TEMP 36.8; O2SAT 95
[2019-09-21] MEDS: metroNIDAZOLE 500 MG TAB PO ×2 (06:10→13:49)
[2019-09-21] MEDS: Pantoprazole 20 MG TABCR PO (07:29)
[2019-09-21 07:40] VITALS: BP 116/58; PULSE 61; RESP 20; TEMP 36.7; O2SAT 97
[2019-09-21] MEDS: Ciprofloxacin 500 MG TAB PO (08:09)
[2019-09-21] MEDS: Sertraline 25 MG TAB 50 MG PO (08:09)
[2019-09-21] MEDS: Ondansetron O.D.T. 4 MG TABEF PO (08:09)
[2019-09-21] MEDS: Donepezil 5 MG TAB 10 MG PO (08:09)
[2019-09-21] MEDS: Insulin Aspart 300 UNITS/3 ML PEN SC ×3 (08:10→17:04)
[2019-09-21 08:34] LABS: Abs Immature Grans 0.02 k/cumm (0.0-0.09); Absolute Basophil Count 0.03 k/cumm (0.0-0.2); Absolute Eosinophil Count 0.14 k/cumm (0.0-0.7); Absolute Lymphocyte Count 1.99 k/cumm (1.2-3.4); Absolute Monocyte Count 0.61 k/cumm (0.11-0.7); Absolute Neutrophil Count 6.34 k/cumm (1.2-6.7); Basophils % 0.3; Eosinophils % 1.5; HGB 11.5 g/dL (12.0-15.5); Immature Grans % 0.2; Lymphocytes % 21.8; Mean Corp. HGB Concentration 31.9 g/dL (32.0-36.0); Mean Corpuscular Hemoglobin 28.4 pg (27.0-33.0); Mean Corpuscular Volume 88.9 fL (80-95); Mean Platelet Volume 8.7 fL (8.0-11.0); Monocytes % 6.7; Neutrophils % 69.5; Platelet Count 276 x1000/uL (130-400); RBC 4.05 m/cumm (4.00-5.20); RBC Distribution Width 14.1 % (11.7-14.6); White Blood Cell Count 9.13 k/cumm (4.4-10.8)
[2019-09-21 08:40] LABS: Anion Gap 7.1 mmol/L (3-11); BUN 4 mg/dL (7-18); CO2 27.9 mmol/L (21.0-32.0); CREATININE 0.78 mg/dL (0.55-1.02); Calcium 8.6 mg/dL (8.5-10.1); Chloride 105 mmol/L (98-107); Glucose 209 mg/dL (70-100); Magnesium 1.9 mg/dL (1.8-2.4); Sodium 140 mmol/L (136-145)
[2019-09-21] MEDS: Enoxaparin 40 MG/0.4 ML SYR SC (09:06)
--- NOTE | 2019-09-21 10:24 | OT.INIE ---
Occupational Therapy Notes Inpatient Occupational Therapy Evaluation Date: 09/21/19 Referring Doctor:Sierra Pierre MD OT Orders: Non urgent-Limited Ability Precautions: Standard PATIENT PROFILE/ADMITTING DIAGNOSIS: Patient is a 84-year-old female admitted to [facility] through the ER for diverticulitis and dehydration. PMHx: History of diabetes, hypertension, depression, CVA, panic attacks Social History/Home Situation: Pt resides at the [facility] and reports that she is totally (I) at her baseline level of function. She does not utilize an assistive device for functional mobility. Pt states that she is claustrophobic and does not like small or closed spaces. Equipment owned/DME: [facility] [employer] accessible apartment. SUBJECTIVE: Pt was sitting in chair when OT arrived. She was agreeable to OT session reporting that she believes she is leaving today and returning home. OBJECTIVE: General Observation: Pleasant and able to answer questions appropriately Mental Status: A&Ox3 Pain: no c/o pain ROM: RUE WFL L UE WFL STRENGTH: RUE 4/5 throughout globally LUE 4/5 throughout globally FUNCTIONAL MOBILITY/ADLS: Transfers Sit-Stand (S) Stand-sit (S) Bed-Chair (S) Chair-bed (S) BATHING Sitting in chair Bathing UE (I) Bathing LE Pt denies performance. DRESSING sitting in chair Dressing UE (I) don and doffing hospital gown Dressing LE (I) don and doffing (B) shoes, Min (A) with don and doffing underwear GROOMING Standing at sink (S) (I) with brushing teeth TOILETING On toilet (I) EATING NT BALANCE: Static sitting Normal Dynamic Sitting Normal Static Standing Normal Dynamic Standing Normal SPECIAL TESTS: Daily Activity Limitations Standardized Measure [facility] AM -PAC ?6 clicks? Daily Activity Inpatient Short Form: Raw score: 23 Standardized score: 51.12 CMS score: 15.86% INFORMED CONSENT/EDUCATION: Pt instructed in purpose of OT Consult and plan of care. ASSESSMENT: Patient is a 84-year-old female referred to occupational therapy services with diagnosis of diverticulitis and dehydration. Patient presents with clinical signs and symptoms consistent with dx. Pt was seen for OT consult only. She does require (A) sitting on the toilet with don and doffing new underwear however while sitting in the chair pt is able to demonstrate this with increased (I). OT recommends that pt return home when medically cleared per MD. No DME's needed at this time. AMPAC score 23 Patient is assessed as a Low 86228 complexity based on the following: History: See Above Examination: See functional limitations as listed above Presentation: Evolvig Decision Making: AMPAC score 23 GOALS N/A PLAN OF CARE/TREATMENT PLAN: OT consult only. Discharge from skilled OT services. DISCHARGE RECOMMENDATIONS Home when medically cleared per MD. TREATMENT TIME/MINUTES/CODES 26067, [id number], 20 minutes (08:55) Tania Figueroa OTR/L [facility]
[2019-09-21 11:05] VITALS: BP 122/62; PULSE 54; RESP 14; TEMP 36.3; O2SAT 98
--- NOTE | 2019-09-21 13:07 | W.PSYCHCONSU ---
Date of service: 09/21/19 Time of Service: 12:30 History of Present Illness Narrative: Primary Care Provider: Larry Moulton MD Information source: Patient, chart, medical team Reason for consultation: Psychiatric consultation was requested by Sierra Pierre MD for Alyssa Zhu to evaluate capacity to make decision to return home from this hospitalization per patient preference. 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 CVA, asthma, depression and bradycardia, cognitive impair with memory loss. Presents to [facility] ED with nausea, and diarrhea x 1 week. Seen yesterday for the same symptoms; imaging and laboratory work up revealed mild diverticulitis, minimal elevated WBC. She was discharged home on augmentin with close PCP follow up. Today she returned to the ED due to vomiting, and unchanged abdominal pain. We have been asked to admit her for further evaluation and management. She is being admitted to m/s for IV antibiotics of cipro and flagyl, hydration and medication for nausea. Labs today in ED reveal normal wbc, low potassium which she will be repleted, otherwise normal. She endoreses vomiting with diarrhea at least 3 times today. She denies pain however with palpation she does have RLQ pain worse then left. She is forgetful when asking her PMH she could not recall and when discussing with her about a clear diet she asked nursing for regular food however became sick with ice chips. Tigan ordered for nausea. She is a palliatve care patient, they will be consulted for goals of care. She denies SOB, CP. Per Care Management and chart, patient has presented up to 10 times in the last month to the ED with concerns that seem primarily anxiety related, and she tends to leave and decline further treatment. Today Patient reports feeling well and ready to go home. She states that the reason for admission is nausea and belly pain and that she is getting antibiotics for and she feels better. She describes that she feels safe at home, she loves living in [facility] because her friends and supports are there. She enjoys getting a hot meal there daily. She states that in the morning and evenings she has tea and toast. She heats her water for tea on the stove and uses the toaster to make toast in her kitchen. She doesn't otherwise use the stove for cooking. 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 She likes that the police and fire are right next door to her. She states that she takes most of her medications in the evening, and her diabetes medications in the morning. She states that Home Health now comes in for the last week to help with organizing her medications into a pill organizer. She thinks this is a good idea, but doesn't think she needs a pill dispenser, doens't think she has made medication errors. Mood: No problem, not a problem. Mood is good today. Kasia endorses that she has taken antidepressants for a while which she thinks are helpful. She states she doesn't remember the name of her antidepressant but recognized the name Zoloft when I stated it. And she stated that it is a small yellow pill (possibly correct but her former antidepressant paroxetine is also yellow in some generic forms). Anxiety: she denies anxiety as a chronic problems except for claustrophobia. She requested that I not close the door during this interview. Sleep: no complaints. Safety: - current suicidal/homicidal/violent ideations: denies - guns in home or access to weapons: none PAST PSYCHIATRIC HISTORY: Hospitalizations: denies Suicide attempts: denies Prescribers: Medications: - paroxetine for a long time until recently - sertraline 50mg currently Therapist: none REVIEW OF SYSTEMS: Constitutional: feels well Cardiovascular: No chest pains or dizziness Respiratory: no cough or shortness of breath Musculoskeletal: no weakness or trouble walking GI: No constipation, diarrhea, nausea, vomiting; appetite is fine Genitourinary: No dysuria, frequency of urination, hematuria Neurological: No weakness, seizures, numbness, tics, ataxia Psych: see above Endocrine: No cold or heat intolerance, polyuria, excessive thirst Hem/Lymph: No bruising, bleeding Allergies: see chart MENTAL STATUS EXAM: Constitutional: appears healthy, stated age, appropriate dress, grooming, hygiene. Sitting up in chair with good eye contact and bright smile. Attitude: cooperative Psychomotor: no retardation or agitation Speech: nonpressured, normal volume and prosody. No articulation problems noted. Associations: no looseness Thought process: linear, logical, goal directed Thought content without psychosis, delusions, obsessions No suicidal or homicidal ideations Hallucinations denied Mood: good Affect: full, euthymic, momentarily anxious around taking a cognitive test and with the door closing Attention/Concentration: grossly intact, Judgment/insight: poor/poor Oriented to self, place, year, month, date, day, and circumstances of hospitalization Language appropriate to age and education Fund of knowledge appropriate to age and education Memory intact to recent and remote events Other cognitive testing: see Mini-Cog and other testing Mini-Cog: [id number] 1/3 then 2/3 on immediate recall, 2/3 on delayed recall. Clock: [place] intact, numbers poorly spaced clustered to right side and number 11 repeated, but jeannette correct and made a 12. She remembered the time to be set to ten past eleven which she repeated for confirmation, and then she altaf a straight line from the 11 (in the place of the 7) across to the 2 (in correct place). She could not remember the name of the current president. when asked to name any president she could remember she stated [employer]. When asked about things she is hearing in the news which she states she watches all the time time, she states [place]. When asked what about that, she states Immigration. Assessment and Plan Assessment and plan (1) Dementia: Status: Chronic Assessment and plan: Alyssa Zhu is an 84 year old female with past neuropsychiatric history of mild cognitive impairment nad depression admitted with acute diverticulitis who has had 10 ED visits over the last month primarily anxiety related. Psychiatry consult was requested to evaluate her capacity to choose to return home to supported independent living in setting of sudden increase of ED visits and concern for patient's mismanagement of her own medications. History and clinical exam are supportive of dementia given that she now has functional impairment in addition to memory difficulties. while collateral information is necessary to confirm her functioning at [facility], in exam she demonstrated sufficient capacity to recognize danger in her environment and respond to it appropriately, and to manage her medications with support of home health putting it into a pill organizer. Since this support just recently started, it is reasonable to assume that she has not proven to have failed this level of support. She wishes to return to her apartment, appropriately recognizes and welcomes supports around her medications there, and appears in spite of signs of dementia on the Mini-Cog exam, to be able to have the capacity to make this decision to return home and understand the risks and benefits thereof at this time. I recommend that a full Andrea Cognitive Assessment be done in the outpatient setting when she is wearing her glasses (the barrier to performing the MoCA today) and consider that if anxiety is highly present that her sertraline be increased from 50mg to 75mg by her outpatient provider. Safety: she is at low risk for intentional harm to herself or others and is at slightly elevated risk for unintentional harm to herself through medication mismanagement however that risk is somewhat attenuated by Home health support. Safety issues around cooking and housing are attenuated by her living at [facility] where a meal is provided and her apartment is in a safe setting. I discussed my finding with Dr. Pierre. I am happy to help with further questions as they arise. Visit Statistics Total Visit Minutes: Visit Time Allocation >50% of face to face visit spent in counseling (Extensive teaching, explanation and instructions. Counseling as appropriate. Review of plans, and discussion concerning medical problems dealt with at this visit. Discussion of benefits/risks of treatment, anticipated course of events, potential medication side effects, options, alternatives, and follow up plans. Questions were solicited and answered, and the patient verbalized understanding.), and/or coordination of care. [facility] Medical History (Updated 09/21/19 @ 16:55 by Marichuy Rubio MD) Anxiety (Chronic) CVA (cerebral vascular accident) (Chronic) Depression (Inactive) Diabetes mellitus (Inactive) Times 3 years. History of CVA (cerebrovascular accident) (Inactive 12/02/91) a. 1991. Mild cognitive impairment with memory loss (Inactive) Osteoarthrosis (Inactive) both hips, right greater than left Osteopenia (Inactive) Panic attack (Inactive) Paroxetine withdrawal syndrome with perceptual disturbance (Acute) Rupture of tendon of biceps, long head (Resolved 10/31/07) Surgical History Abdominal hysterectomy Bilateral salpingectomy with oophorectomy Biopsy of breast (~2003) left;neg Cholecystectomy History of bilateral salpingo-oophorectomy (Inactive) History of Surgical Procedure (Inactive) a. Cholecystectomy. b. Lysis of adhesions. c. Hysterectomy. d. Oophorectomy. Status post abdominal hysterectomy (Inactive) Status post breast biopsy (Inactive) Status post cholecystectomy (Inactive) Family History Son , age 52 Sudden cardiac arrest Father , killed by Nazis in front of her when she was 10 yo Murder Social History Smoking/Tobacco Use Status: Former Tobacco Use Tobacco: How many years used: 1 Second Hand Exposure: Yes Alcohol Intake: never Drug use: Never Substance use type: does not use Caregiver/Support person: No Household members: none Housing: apartment Number of Children: 1 number of grandchildren: 1 Communication Needs: Corrective Lenses Education Level: middle school Do you need help understanding health information?: Always 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 Pets and animals: No What is your relationship status?: How often do you talk on the phone with friends or family?: never How often do you get together with friends or relatives?: three or more times per week How often do you attend jainism or faith services?: 4 or more times per year Panel score (0-1 are the most socially isolated patients): 2 What type of physical activity do you participate in: walking Duration: < 15 minutes/day Frequency: 1-2 times per week Marielle/Baptism: Adventist Special marielle needs: No Seatbelt use: always Water heater temp set <120 deg: Yes Working smoke detector in home: Yes Fire extinguisher in home: Yes Do you feel safe at home: Yes Do you feel safe in your relationship?: Yes Additional Social history: in 1998. Lives in [facility]. Moved in 2012. Has one granddaughter, only living relative. Lives in [place]. Social. Often sits on porch of [facility] and greets people. Results Last Vital Signs Temp 36.3 C L 09/21/19 11:05 Pulse 54 L 09/21/19 11:05 Resp 14 09/21/19 11:05 BP 122/62 09/21/19 11:05 Pulse Ox 98 09/21/19 11:05 Labs Result diagrams: 09/21/19 08:20 10/21/19 08:20 Labs: Laboratory Results - last 24 hr 09/21/19 09/21/19 08:20 08:20 WBC 9.13 RBC 4.05 Hgb 11.5 L Hct 36.0 MCV 88.9 MCH 28.4 MCHC 31.9 L RDW 14.1 Plt Count 276 MPV 8.7 Immature Gran % 0.2 Neutrophils % 69.5 Lymphocytes % 21.8 Monocytes % 6.7 Eosinophils % 1.5 Basophils % 0.3 Absolute Neutrophils 6.34 Absolute Lymphocytes 1.99 Absolute Monocytes 0.61 Absolute Eosinophils 0.14 Absolute Basophils 0.03 Sodium 140 Potassium 4.0 D Chloride 105 Carbon Dioxide 27.9 Anion Gap 7.1 BUN 4 L Creatinine 0.78 Estimated GFR/1.73 m2 >= 60.00 Glucose 209 H Calcium 8.6 Magnesium 1.9
[2019-09-21 15:07] VITALS: BP 124/74; PULSE 60; RESP 18; TEMP 36.6; O2SAT 96
--- NOTE | 2019-09-21 15:50 | PT.INTREAT ---
Date of service: 09/21/19 Time of Service: 15:50 PT Notes Inpatient Physical Therapy Treatment Note [facility] Date: 09/21/19 PRECAUTIONS: Fall SUBJECTIVE: Alyssa is pleasant and agreeable to participating in PT. She is hopeful that she will be returning home soon. OBJECTIVE: PAIN: No c/o pain BED MOBILITY/TRANSFERS Sit-stand: S in a.m.; I in p.m. Stand-sit: S in a.m.; I p.m. GAIT Assistive Device: No AD Weight bearing: Full Assist: SBA in a.m.; S in p.m. Distance: 150' in a.m.; 75 feet' x2 + 100' x2 in p.m. Deviation: Standing rest/seated rest/stand rest in p.m. THEREX: Patient completed a lower extremity strengthening program, in a standing position, as per flow sheet. She complains of right knee pain and is unable to perform hip flexion exercise. ASSESSMENT: Patient tolerated session well without complaint. She was able to tolerate a progression in gait distance without assistive device support and S. PLAN: Continue with PT's POC TREATMENT CODE/TIME: Session 1: 30 minutes; [id number], [id number] Session 2: 20 minutes; [id number]
--- NOTE | 2019-09-21 15:52 | DSE_ITS ---
Date of service: 09/21/19 Time of Service: 15:52 DS: Diagnosis Discharge Diagnosis (1) Acute diverticulitis: Status: Resolved (2) Nausea & vomiting: Status: Acute (3) Mild cognitive impairment with memory loss: Status: Acute (4) History of DVT (deep vein thrombosis): Status: Chronic (5) Essential hypertension: Status: Resolved (6) Anxiety: Status: Chronic (7) Non-insulin dependent type 2 diabetes mellitus: Status: Acute Discharge Plan Disposition Patient Disposition: HOME W/HOME HEALTH SERVICE Condition: Stable Discharge Details Chief Complaint: Nausea/Vomit/Diar Clinical Impression: Diverticulitis, Dehydration, Adult failure to thrive Reason For Visit: DIVERTICULITIS, FAILURE OF OUTPATIENT THERAPY Admit Date/Time: 09/19/19 07:57 Admit Provider: Sierra Pierre Attending Provider: Sierra Pierre Primary Care Provider: Larry Moulton ED Provider: Karan Ferrell Hospital Course Hospital Course: Ms Zhu is an 84 year old female with PMHx of NIDDm2, H/o DVT/PE, not on anticoagulation, as well as HTN, and mild cognitive impairement who was admitted to [facility] on 09/19/19 with acute diverticulitis which had failed outpatient therapy. The patient was placed on IV antibiotics (cipro/flagyl), IVF, and her diet was downgraded to clears. As her symptoms improved, her diet was advanced, until the day of discharge, when she is able to tolerate a regular diet. She has no abdominal pain or nausea and is medically stable for discharge home today. Because staff brought up concerns about patient's forgetfulness and decision making capacity, a formal capacity evaluation was performed by Dr Newton, and the patient is deemed capable of making her own medical and disposition decisions with appropriate support network in place. The patient is getting discharged home with resumption of home health nursing, addition of physical and occupational therapy services, as well as NET DEVELOPMENT MANAGER. We are also making a referral for [facility] due to patient's known anxiety in the community which drives her frequent ER visits. The care for patient as well as completion of her discharge paperwork on the day of discharge took 40 minutes. Home Meds and New Rx's Prescriptions: New metronidazole 500 mg Tablet 500 mg PO Q8H Qty: 9 RF: 0 ciprofloxacin HCl 500 mg Tablet 500 mg PO BID Qty: 6 RF: 0 Continued sertraline 25 mg tablet 50 mg PO DAILY RF: 0 donepezil 10 mg tablet 10 mg PO DAILY Qty: 30 RF: 11 metformin 1,000 mg tablet 1,000 mg PO BID Qty: 180 RF: 4 simvastatin [Zocor] 40 mg tablet 40 mg PO DAILY Qty: 90 RF: 4 paroxetine HCl [Paxil] 20 mg tablet 20 mg PO DAILY Qty: 90 RF: 4 lorazepam 0.5 mg tablet 0.5 mg PO BID PRN (Reason: anxiety) Qty: 10 RF: 0 albuterol sulfate [Ventolin HFA] 60 PUFF HFA aerosol inhaler 2 puff Inhalation Q4H PRN PRNQty: 1 RF: 0 pantoprazole [Protonix] 20 mg tablet,delayed release (DR/EC) 20 mg PO DAILY Qty: 14 RF: 0 acetaminophen [Tylenol] 325 mg Tablet 650 mg PO Q6H PRN PRNQty: 0 RF: 0 ondansetron 4 mg tablet,disintegrating 4 mg PO Q6H PRN (Reason: nausea and vomiting) Qty: 10 RF: 0 Discontinued amoxicillin-pot clavulanate [Augmentin] 875-125 mg tablet 1 tab PO BID Qty: 20 RF: 0 No Action (DME) blood-glucose meter [OneTouch Ultra2 Meter] kit See Dose Instructions .ROUTE .MEDSUPPLY Qty: 1 RF: 0 (DME) lancets [Prodigy Lancets] 1 EACH misc 1 ea Miscellaneous BID Qty: 100 RF: 6 (DME) lancets [OneTouch Delica Lancets] 1 EACH misc 1 ea Miscellaneous BID Qty: 100 RF: 4 (DME) OneTouch Ultra Test strip 1 ea Miscellaneous BID Qty: 100 RF: 4 Discharge Instructions Instructions: Ciprofloxacin (By mouth), Metronidazole (By mouth), Diverticulitis (DC) Additional Instructions: Finish your antibiotics as prescribed. Return to the hospital with any fever, bleeding, chest pain, or shortness of breath. Care Plan Goals: Resumption of home health nursing. Addition of Home Health PT, OT, NET DEVELOPMENT MANAGER. Referral to [facility]. Stand Alone Forms: Nursing Discharge Form Referrals: Larry Moulton MD [Primary Care Provider] - 09/29/19 2:00 pm Activity:: Activity as Tolerated Equipment/Supplies:: No Equipment Needed Diet:: As Tolerated Discharge Orders Discharge Orders: Discharge Order (Routine); Ordered 09/21/19 Ordered By: Sierra Pierre DS: Summary Status at Discharge Functional status at discharge: independent ambulation Overall status at discharge: patient is back to baseline Mental Status: mental status grossly normal Speech and Movement: speech and movement normal Mood: congruent mood Affect: normal affect Exam Narrative Exam Narrative: General: very pleasant elderly female, A&Ox2-3, sitting comfortably in a chair, in great spirits HEENT: EOMI, MMM Heart: RRR Lungs: CTAB GI: abdomen is soft, obese, nontender Extremities: trace edema BLE's, no c/c. Psych Mental Status: mental status grossly normal Speech and Movement: speech and movement normal Mood: congruent mood Affect: normal affect DS: Data Vitals/I&O Vitals and I&O: Vital Signs Temperature 36.6 C 09/21/19 15:07 Temperature Source Tympanic 09/21/19 15:07 Pulse 60 09/21/19 15:07 Pulse Rhythm Regular 09/21/19 08:49 Respiratory Rate 18 09/21/19 15:07 Respiratory Effort Non-Labored 09/21/19 08:49 Respiratory Depth Normal 09/21/19 08:49 Respiratory Pattern Normal 09/21/19 08:49 Blood Pressure 124/74 09/21/19 15:07 Blood Pressure Mean 74 09/19/19 09:02 Pulse Oximetry 96 09/21/19 15:07 Oxygen Delivery Method Room Air 09/21/19 15:07 Oxygen Flow Rate 0 09/21/19 15:07 Pain Level 0 09/21/19 15:07 Comment 09/20/19 03:15 Intake & Output 09/20/19 09/21/19 09/21/19 23:59 11:59 23:59 Intake Total 500 / 980 480 / 980 Output Total 100 / 100 200 / 200 Balance -100 / 890 300 / 780 480 / 780 Weight 89.2 kg Intake: Oral 500 / 980 480 / 980 Output: Urine 100 / 100 200 / 200 Other: Urine Color Yellow Yellow Urine Appearance Clear Clear Urine Odor Normal Comment pt missed the hat and voided in the toilet Voiding Methods Toilet Toilet Data Completed and Pending Completed studies during hospitalization [Text1]: CT abdomen/pelvis 09/18/19: Mild sigmoid diverticulitis. CXR 09/18/19: No acute abnormality. Labs on day of discharge: Labs from last 24 hours 09/21/19 09/21/19 08:20 08:20 WBC 9.13 RBC 4.05 Hgb 11.5 L Hct 36.0 MCV 88.9 MCH 28.4 MCHC 31.9 L RDW 14.1 Plt Count 276 MPV 8.7 Immature Gran % 0.2 Neutrophils % 69.5 Lymphocytes % 21.8 Monocytes % 6.7 Eosinophils % 1.5 Basophils % 0.3 Absolute Neutrophils 6.34 Absolute Lymphocytes 1.99 Absolute Monocytes 0.61 Absolute Eosinophils 0.14 Absolute Basophils 0.03 Sodium 140 Potassium 4.0 D Chloride 105 Carbon Dioxide 27.9 Anion Gap 7.1 BUN 4 L Creatinine 0.78 Estimated GFR/1.73 m2 >= 60.00 Glucose 209 H Calcium 8.6 Magnesium 1.9 PFSH Medical History (Updated 09/21/19 @ 15:52 by Sierra Pierre MD) Anxiety (Chronic) CVA (cerebral vascular accident) (Chronic) Depression (Inactive) Diabetes mellitus (Inactive) Times 3 years. History of CVA (cerebrovascular accident) (Inactive 12/02/91) a. 1991. 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 Cholecystectomy. b. Lysis of adhesions. c. Hysterectomy. d. Oophorectomy. Status post abdominal hysterectomy (Inactive) Status post breast biopsy (Inactive) Status post cholecystectomy (Inactive) Family History Son , age 52 Sudden cardiac arrest Father , killed by Nazis in front of her when she was 10 yo Murder Social History Smoking/Tobacco Use Status: Former Tobacco Use Tobacco: How many years used: 1 Second Hand Exposure: Yes Alcohol Intake: never Drug use: Never Substance use type: does not use Caregiver/Support person: No Household members: none Housing: apartment Number of Children: 1 number of grandchildren: 1 Communication Needs: Corrective Lenses Education Level: middle school Do you need help understanding health information?: Always 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 Pets and animals: No What is your relationship status?: How often do you talk on the phone with friends or family?: never How often do you get together with friends or relatives?: three or more times per week How often do you attend oriental orthodox or pentecostal services?: 4 or more times per year Panel score (0-1 are the most socially isolated patients): 2 What type of physical activity do you participate in: walking Duration: < 15 minutes/day Frequency: 1-2 times per week Marielle/Mandaeism: Evangelical Special marielle needs: No Seatbelt use: always Water heater temp set <120 deg: Yes Working smoke detector in home: Yes Fire extinguisher in home: Yes Do you feel safe at home: Yes Do you feel safe in your relationship?: Yes Additional Social history: in 1998. Lives in [place]. Moved in 2012. Has one granddaughter, only living relative. Lives in [place]. Social. Often sits on porch of [employer] and greets people.
--- NOTE | 2019-09-21 16:36 | W.INDIABCONS ---
Date of service: 09/21/19 Time of Service: 16:36 Diabetes Inpatient Consult DESCRIPTION/ASSESSMENT: Appreciate diabetes consult for Ms. Zhu who is hospitalized with acute diverticulitis. BMI 33 for this 84 year old female. A1c 11.6 06/19 Blood sugars this hospitalization 119-191 eating 100% of her meals here and receiving only sensitive insulin correction. Usual medication is Metformin. Blood sugars here do not reflect the A1c seen 3 months ago. Unclear what has changed. INTERVENTION: Given her current blood sugars with minimal medication intervention, no suggestions for management at this time. PLAN: Will follow up as outpatient by telephone call. Time Spent in Nutritional Counseling and Treatment: 0 minutes
--- NOTE | 2019-09-21 16:39 | CHAPLAIN ---
Alyssa was sitting up in her chair when I visited. She was very friendly in greeting me and told me she is feeling better and hopes to go home. She is [place] and Fr. Galicia visited her yesterday, and Fr. Martinez visited today.
--- NOTE | 2019-09-21 17:29 | CMDISCH_ITS ---
- If Service Date Differs Date of service: 09/21/19 Time of Service: 17:29 LACE Index Scoring Tool - Questions: Length of Stay (in days): 3 Acuity (Admit via E.D.?): Yes Comorbidities: Cerebrovascular Disease, Diabetes w/o Complication E.D. Visits: 10 - Answers: Total Score: 12 Risk of Readmission: High Risk Care Management Discharge Reason for Hospitalization: Diverticulitis, Failure of Outpatient Therapy Discharge Plan: Alyssa will return to her apartment at the [facility] with a resumption of nursing. CM also contacted [facility] to evaluate Alyssa for additional services that she may qualify for. CM coordinated transportation home via [facility] private vehicle. Patient/Family Education Needs: Review discharge instructions, discussion of self care needs including Ask Me Three Services Needed at Discharge: Home Health Care Services
--- NOTE | 2019-09-22 17:16 | PT.INDS ---
Date of service: 09/22/19 PT Notes Inpatient Physical Therapy Discharge Summary Dates: 09/22/1910 Dates of Service: 09/19/2019 through 09/21/2019 This is a clinical summary of care provided on the duration of dates listed above. No charge was made in the completion of this documentation. Referring Doctor: Sierra Pierre MD PT Orders: PT CONSULT: Evaluate and treat limited ability Precautions: fall precautions Patient Profile/Admitting Diagnosis: Patient is a 84-year-old female admitted to [facility] on this date secondary to diverticulitis and dehydration. Patient states she came to the ER yesterday as well and was discharged home. She had similar symptoms at that point as well. She denies the use of any oxygen. PMHX: History of diabetes, hypertension, depression, CVA, panic attacks Social History/Home Situation: Patient resides at the [facility]. Baseline is ambulation with standard cane for community purposes. No assistive device in her apartment. Equipment Owned/DME: Standard cane and walker which she does not use the walker Subjective: NT. Objective: General Observation:NT Mental Status: NT Pain: NT ROM: Right Upper Extremity: Within functional limits Left Upper Extremity: Within functional limits Right Lower Extremity: Within functional limits Left Lower Extremity: Within functional limits Strength: Right Upper Extremity: Grossly 4/5 throughout Left Upper Extremity: Grossly 4/5 throughout Right Lower Extremity: Hip flexion, hamstrings hip adduction and quads 4/5. Hip abduction 4-/5 Left Lower Extremity: Hip abduction and quads 4-/5, hip flexion, hamstrings and hip adduction 4/5. Sensation: Intact sensation light touch throughout bilateral lower extremities Bed Mobility/Transfers: Formal bed mobility independent Sit to stand: Independent Stand to sit: Independent Gait: Patient ambulates 75 feet x 2 +100 feet x 2 with supervision with no assistive device needed. Balance: Static Sitting: Normal Dynamic Sitting: Normal Static Standing: Good Dynamic Standing: Good Assessment: Patient is a 84 year old female referred to physical therapy services with the diagnosis of diverticulitis and dehydration. Patient continues to present with clinical signs and symptoms consistent with this diagnosis that have resulted to mobility limitations, gait instability and generalized weakness as demonstrated the following impairment levels: 1. Decreased strength bilateral lower extremity major muscle groups 2. Impaired standing balance Impairments resulted to the following functional limitations: 1. Increased completion time for mobility ADL performance 2. Increased fall risk Goals: Goals X1 week 1. Supine-Sit independent MET 2. Sit-Supine independent MET 3. Sit-Stand independent MET 4. Stand-Sit dependent MET 5. Bed-Chair independent MET 6. Chair-Bed independent MET 7. Gait 250 feet standby assist MET 8. Stairs negotiate 5 with railing independent MET 9. Independent with home exercise program NOT MET 10. Good static and dynamic standing balance/tolerance MET DISCHARGE RECOMMENDATIONS: Patient will benefit from home health PT services in order to progress mobility level using least restrictive assistive ambulatory device, assess home safety, identify additional equipment needs, and establish a functional maintenance program that will increase ability of patient to remain at home. TREATMENT CODE/TIME: NC. Thank you very much for this referral. Felicity Diaz PT, DPT, CLT [facility]
== END 2019-09-21 17:41 | disposition home health service (06) | DRG 392 ==
LOC: ER 08:43 → MS 09:19
PROVIDERS: Nurse Practitioner Family; Student in an Organized Health Care Education/Training Program; Admitting Provider Internal Medicine; Emergency Provider Emergency Medicine; PCP Family Medicine; Visit Provider Internal Medicine
DX: K57.32 Diverticulitis of large intestine without perforation or abscess without bleeding (principal); R11.2 Nausea with vomiting, unspecified; F06.8 Other specified mental disorders due to known physiological condition; E11.9 Type 2 diabetes mellitus without complications; Z86.718 Personal history of other venous thrombosis and embolism; Z86.711 Personal history of pulmonary embolism; I10 Essential (primary) hypertension; Z51.5 Encounter for palliative care; F41.8 Other specified anxiety disorders; E87.6 Hypokalemia; Z79.84 Long term (current) use of oral hypoglycemic drugs; Z23 Encounter for immunization
CPT/HCPCS: 36415; 80048; 80053; 83690; 96361; 96365; 96375; 97110; 97161; 97165; 97530; 97535; 99223; 99233; 99239; 99255; 99285; J1650; 81003; 81015; 83735; 85025; 87086; 99284; J0744; J2405

== ENCOUNTER 2019-09-25 16:06 | Emergency (ER) | payer MEDICARE, SELFPAY ==
[2019-09-25] VITALS (7 sets, daily range): BP systolic 119–130; BP diastolic 43–103; PULSE 58–63; RESP 13–21; TEMP 36.6–37; O2SAT 97–98
--- NOTE | 2019-09-25 16:23 | W.ED.GENAD ---
Discharge Plan Disposition Patient Disposition: HOME Condition: Stable Discharge Details Chief Complaint: Nausea/Vomit/Diar Clinical Impression: Anxiety, Nausea & vomiting Primary Care Provider: Larry Moulton ED Provider: Karan Ferrell Home Meds and New Rx's Prescriptions: Continued (DME) blood-glucose meter [OneTouch Ultra2 Meter] kit See Dose Instructions .ROUTE .MEDSUPPLY Qty: 1 RF: 0 donepezil 10 mg tablet 10 mg PO DAILY Qty: 30 RF: 11 metformin 1,000 mg tablet 1,000 mg PO BID Qty: 180 RF: 4 (DME) lancets [Prodigy Lancets] 1 EACH misc 1 ea Miscellaneous BID Qty: 100 RF: 6 (DME) lancets [OneTouch Delica Lancets] 1 EACH misc 1 ea Miscellaneous BID Qty: 100 RF: 4 (DME) OneTouch Ultra Test strip 1 ea Miscellaneous BID Qty: 100 RF: 4 simvastatin [Zocor] 40 mg tablet 40 mg PO DAILY Qty: 90 RF: 4 paroxetine HCl [Paxil] 20 mg tablet 20 mg PO DAILY Qty: 90 RF: 4 lorazepam 0.5 mg tablet 0.5 mg PO BID PRN (Reason: anxiety) Qty: 10 RF: 0 albuterol sulfate [Ventolin HFA] 90 mcg/actuation HFA aerosol inhaler 2 puff Inhalation Q4H PRN PRN (Reason: shortness of breath or wheezing) Qty: 1 RF: 3 sertraline 50 mg tablet 50 mg PO DAILY Qty: 90 RF: 3 ondansetron 4 mg tablet,disintegrating 4 mg PO Q6H PRN (Reason: nausea and vomiting) Qty: 10 RF: 0 pantoprazole [Protonix] 20 mg tablet,delayed release (DR/EC) 20 mg PO DAILY Qty: 14 RF: 0 metronidazole 500 mg Tablet 500 mg PO Q8H Qty: 9 RF: 0 ciprofloxacin HCl 500 mg Tablet 500 mg PO BID Qty: 6 RF: 0 acetaminophen [Tylenol] 325 mg Tablet 650 mg PO Q6H PRN PRNQty: 0 RF: 0 Discharge Instructions Instructions: Hypokalemia (ED) Additional Instructions: increase your diet of potassium and have your level rechecked with your primary care provider in 1-2 weeks if you feel more ill, have worsening pain or trouble breathing return to the emergency department Medical Decision Making 84 yo female with hx of multiple medical problems and anxiety who was recently admitted for uncomplicated diverticulitis comes in with complaints of shortness of breath, feeling as though she can't get oxygen in and nausea since 12. Denies any fevers, cough, and vomit and on my exam denies chest pain. She is speaking in full sentences on exam with clear lungs, o2 saturation of 98%, no tachycarida and has no lower extremity swelling or calf pain to suggest dvt so doubt PE. I suspect her symptoms are due to her chronic anxiety but will obtain troponin to eval for possible nstemi and evaluate for anemia. pt remains stable, eating and drinking laughing in no idstress. labs show K of 2.6 which was repleted orally without vomit. Will have her repeat this in a week with pcp, return precations given. Ssupect anxiety as cause of her symptoms Differential Diagnosis Differential Diagnosis: nstemi, anxiety, pna Imaging Data Radiologic Study: Attestation: I personally reviewed and interpreted this imaging study as follows: Imaging: X-Ray Radiologist's impression: no acute findings Lab Data Lab results reviewed: Yes I reviewed the patient's lab results. ECG Data Attestation: I personally reviewed and interpreted this ECG (s) as follows: Prior ECG tracings: not available for review Interpretation: sinus rhythm, rate of 60, pqtc 417, no acute st t wave ischemic findings HPI General Mode of arrival: EMS. Date/Time Provider Initiated Documentation: 09/25/19 16:19. Limitations to Documentation: no limitations. Information obtained by: patient. History of Present Illness 84 year old F presents to the emergency department with the chief complaint of nausea, described as moderate, and it has been constant. No relieving factors improve symptom(s), No exacerbating factors reported . Related Data Home Medications Medication Instructions Recorded Confirmed lancets [Prodigy Lancets] #100 ea 08/17/15 09/25/19 lancets [OneTouch Delica Lancets] #100 ea 03/22/16 09/25/19 metformin 1,000 mg tablet 1,000 mg PO BID #180 tab-cap 09/19/18 09/25/19 blood-glucose meter #1 each 01/22/19 09/25/19 blood sugar diagnostic #100 strip 03/04/19 09/25/19 paroxetine HCl 20 mg tablet 20 mg PO DAILY #90 tab 05/05/19 09/25/19 simvastatin 40 mg tablet 40 mg PO DAILY #90 tab 05/05/19 09/25/19 acetaminophen [Tylenol] 650 mg PO Q6H PRN PRN #0 tab 08/26/19 09/25/19 pantoprazole [Protonix] 20 mg PO DAILY #14 tab 08/28/19 09/25/19 lorazepam 0.5 mg tablet 0.5 mg PO BID PRN #10 tab 09/11/19 09/25/19 donepezil 10 mg tablet 10 mg PO DAILY #30 tab 09/17/19 09/25/19 ciprofloxacin HCl 500 mg PO BID #6 tab 09/21/19 09/25/19 metronidazole 500 mg PO Q8H #9 tab 09/21/19 09/25/19 albuterol sulfate 90 mcg/actuation 2 puff INHALATION Q4H PRN PRN #1 09/22/19 09/25/19 aerosol inhaler inh sertraline 50 mg tablet 50 mg PO DAILY #90 tab 09/22/19 09/25/19 ondansetron 4 mg disintegrating 4 mg PO Q6H PRN #10 tab 09/24/19 09/25/19 tablet Previous Rx's Medication Instructions Recorded metformin 1,000 mg tablet 1,000 mg PO BID #180 tab-cap 09/19/18 blood-glucose meter #1 each 01/22/19 blood sugar diagnostic #100 strip 03/04/19 paroxetine HCl 20 mg tablet 20 mg PO DAILY #90 tab 05/05/19 simvastatin 40 mg tablet 40 mg PO DAILY #90 tab 05/05/19 acetaminophen [Tylenol] 650 mg PO Q6H PRN PRN #0 tab 08/26/19 pantoprazole [Protonix] 20 mg PO DAILY #14 tab 08/28/19 lorazepam 0.5 mg tablet 0.5 mg PO BID PRN #10 tab 09/11/19 donepezil 10 mg tablet 10 mg PO DAILY #30 tab 09/17/19 ciprofloxacin HCl 500 mg PO BID #6 tab 09/21/19 metronidazole 500 mg PO Q8H #9 tab 09/21/19 albuterol sulfate 90 mcg/actuation 2 puff INHALATION Q4H PRN PRN #1 09/22/19 aerosol inhaler inh sertraline 50 mg tablet 50 mg PO DAILY #90 tab 09/22/19 ondansetron 4 mg disintegrating 4 mg PO Q6H PRN #10 tab 09/24/19 tablet Allergies Allergy/AdvReac Type Severity Reaction Status Date / Time iodine Allergy Unknown Unverified 09/25/19 16:16 General Stated Complaint: Nausea/Vomit/Diar RASHEL: 3 Review of Systems All systems reviewed & are unremarkable except as noted in HPI and below Constitutional Constitutional: Denies chills, Denies fever(s) and Denies weakness ENT Ears, Nose, Mouth, and Throat: Denies change in voice Gastrointestinal Gastrointestinal: Denies abdominal pain, Denies nausea and Denies vomiting Musculoskeletal Musculoskeletal: Denies joint swelling Neurologic Neurologic: Denies weakness [facility] Medical History (Updated 09/21/19 @ 16:55 by Marichuy Rubio MD) Anxiety (Chronic) CVA (cerebral vascular accident) (Chronic) Depression (Inactive) Diabetes mellitus (Inactive) Times 3 years. History of CVA (cerebrovascular accident) (Inactive 12/02/91) a. 1991. Mild cognitive impairment with memory loss (Inactive) Osteoarthrosis (Inactive) both hips, right greater than left Osteopenia (Inactive) Panic attack (Inactive) Paroxetine withdrawal syndrome with perceptual disturbance (Acute) Rupture of tendon of biceps, long head (Resolved 10/31/07) Surgical History Abdominal hysterectomy Bilateral salpingectomy with oophorectomy Biopsy of breast (~2003) left;neg Cholecystectomy History of bilateral salpingo-oophorectomy (Inactive) History of Surgical Procedure (Inactive) a. Cholecystectomy. b. Lysis of adhesions. c. Hysterectomy. d. Oophorectomy. 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 Pets and animals: No What is your relationship status?: How often do you talk on the phone with friends or family?: never How often do you get together with friends or relatives?: three or more times per week How often do you attend rastafarian or lutheran services?: 4 or more times per year Panel score (0-1 are the most socially isolated patients): 2 What type of physical activity do you participate in: walking Duration: < 15 minutes/day Frequency: 1-2 times per week Marielle/Church: [employer] Special marielle needs: No Seatbelt use: always Water heater temp set <120 deg: Yes Working smoke detector in home: Yes Fire extinguisher in home: Yes Do you feel safe at home: Yes Do you feel safe in your relationship?: Yes Additional Social history: in 1998. Lives in [place]. Moved in 2012. Has one granddaughter, only living relative. Lives in [place]. Often sits on porch of [place] and greets people. Exam Const General: anxious Orientation: alert HENMT Head: normal to inspection Ears: external ears normal General nose exam: external nose normal Mouth: moist mucous membranes Eyes General: appearance normal, both eyes and all related structures Neck Neck: normal visual inspection Resp Effort & Inspection: normal respiratory effort and able to speak in complete sentences Cardio Rate: regular rate Skin General skin exam: no rashes or lesions noted Neuro General: alert and oriented x3 Extrem General: normal to inspection Psych Mental Status: mental status grossly normal Course Vital Signs Vital signs: Vital Signs Temperature 36.6 C 09/25/19 16:14 Pulse 58 L 09/25/19 16:14 Respiratory Rate 16 09/25/19 16:14 Blood Pressure 130/50 L 09/25/19 16:14 Pulse Oximetry 98 09/25/19 16:14 Temperature 36.6 C 09/25/19 16:14 Temperature Source Skin 09/25/19 16:14 Pulse 58 L 09/25/19 16:14 Respiratory Rate 16 09/25/19 16:14 Respiratory Effort Non-Labored 09/25/19 16:17 Blood Pressure 130/50 L 09/25/19 16:14 Pulse Oximetry 98 09/25/19 16:14 Pain Level 8 09/25/19 16:14
--- NOTE | 2019-09-25 16:24 | DI.RAD_ITS ---
EXAM: XR CHEST 2V PA LATERAL INDICATION: shortness of breath. COMPARISON: CHEST 2 VIEWS PA,LAT from 12/04/2013 CHEST 2 VIEWS PA,LAT from 04/24/2014 XR CHEST 2V PA LATERAL from 09/18/2019 TECHNIQUE: 2D digital imaging was performed. FINDINGS: Heart is enlarged but stable. There is prominence of the right hilum. This is unchanged. This had a similar appearance on the chest x-ray from 04/24/2014. The lungs are clear. No effusions or pneum othoraces are identified. Age-appropriate degenerative changes are seen in the spine. IMPRESSION: No acute pulmonary process.
[2019-09-25] MEDS: Ondansetron O.D.T. 4 MG TABEF PO (16:46)
[2019-09-25 16:52] LABS: Abs Immature Grans 0.02 k/cumm (0.0-0.09); Absolute Basophil Count 0.03 k/cumm (0.0-0.2); Absolute Eosinophil Count 0.21 k/cumm (0.0-0.7); Absolute Monocyte Count 0.69 k/cumm (0.11-0.7); Absolute Neutrophil Count 7.74 k/cumm (1.2-6.7); Basophils % 0.3; Eosinophils % 1.9; HCT 34.1 % (36.0-46.0); Immature Grans % 0.2; Mean Corp. HGB Concentration 32.3 g/dL (32.0-36.0); Mean Corpuscular Hemoglobin 28.1 pg (27.0-33.0); Mean Corpuscular Volume 87.2 fL (80-95); Mean Platelet Volume 8.8 fL (8.0-11.0); Monocytes % 6.1; Neutrophils % 68.5; Platelet Count 277 x1000/uL (130-400); RBC 3.91 m/cumm (4.00-5.20)
[2019-09-25 17:07] LABS: ALT 23 U/L (14-59); AST 16 U/L (15-37); Albumin 2.9 g/dL (3.4-5.0); Alkaline Phosphatase 63 U/L (46-116); Anion Gap 11.3 mmol/L (3-11); BUN 7 mg/dL (7-18); Bilirubin, Total 0.4 mg/dL (0.2-1.0); CO2 25.7 mmol/L (21.0-32.0); CREATININE 0.91 mg/dL (0.55-1.02); Calcium 8.8 mg/dL (8.5-10.1); Chloride 103 mmol/L (98-107); Estimated GFR 59.18 (mL/min/1.73m2); Glucose 242 mg/dL (70-100); Magnesium 1.5 mg/dL (1.8-2.4); Sodium 140 mmol/L (136-145); Total Protein 5.9 g/dL (6.4-8.2)
[2019-09-25 17:08] LABS: Potassium 2.6 mmol/L (3.5-5.1); Troponin I < 0.05 ng/mL (0.00-0.06)
--- NOTE | 2019-09-25 17:10 | DI.VRAD_ITS ---
PROCEDURE INFORMATION: Exam: XR Chest, 2 Views Exam date and time: 09/25/2019 4:25 PM Clinical history: 84 years old, female; Other: SOB TECHNIQUE: Imaging protocol: XR of the chest Views: 2 views. COMPARISON: CR XR CHEST 2V PA LATERAL 09/18/2019 12:26 PM FINDINGS: Lungs: Unremarkable. No consolidation. Pleural space: Unremarkable. No pleural effusion. No pneumothorax. Heart/Mediastinum: Cardiomegaly. Right hilum is prominent without interval change from 08/15/2019. Bones/joints: Degenerative changes of the thoracic spine without acute osseous abnormality. IMPRESSION: No acute abnormality. Dictated and Authenticated by: Jessee Ko MD. Ordering:NADINE Russo MD
[2019-09-25] MEDS: Potassium Chloride 20 MEQ TABCR 80 MEQ PO (17:29)
== END 2019-09-25 18:10 | disposition home or self-care (01) ==
PROVIDERS: Emergency Provider Emergency Medicine; PCP Family Medicine
DX: F41.9 Anxiety disorder, unspecified (principal); R11.0 Nausea
CPT/HCPCS: 36415; 80053; 93005; 99285; 71046; 83735; 84484; 85025; 93010

== ENCOUNTER 2019-10-01 05:23 | Emergency (ER) | payer MEDICARE, SELFPAY ==
[2019-10-01 05:31] VITALS: BP 142/63; PULSE 66; RESP 16; TEMP 36.8; O2SAT 96
[2019-10-01 05:34] VITALS: RESP 16
--- NOTE | 2019-10-01 05:36 | ED.GENADUL_ITS ---
Discharge Plan Disposition Patient Disposition: HOME Condition: Good Discharge Details Chief Complaint: GenMedical Clinical Impression: Anxiety, Hypomagnesemia, Hypokalemia Primary Care Provider: Larry Moulton ED Provider: Grayson Mccurdy Home Meds and New Rx's Prescriptions: New magnesium oxide 400 mg (241.3 mg magnesium) tablet 400 mg PO BID Qty: 60 RF: 0 Continued (DME) blood-glucose meter [OneTouch Ultra2 Meter] kit See Dose Instructions .ROUTE .MEDSUPPLY Qty: 1 RF: 0 donepezil 10 mg tablet 10 mg PO DAILY Qty: 30 RF: 11 metformin 1,000 mg tablet 1,000 mg PO BID Qty: 180 RF: 4 prochlorperazine maleate [Compazine] 10 mg tablet 10 mg PO BID PRN (Reason: nausea and vomiting) Qty: 20 RF: 0 (DME) lancets [Prodigy Lancets] 1 EACH misc 1 ea Miscellaneous BID Qty: 100 RF: 6 (DME) lancets [OneTouch Delica Lancets] 1 EACH misc 1 ea Miscellaneous BID Qty: 100 RF: 4 (DME) OneTouch Ultra Test strip 1 ea Miscellaneous BID Qty: 100 RF: 4 simvastatin [Zocor] 40 mg tablet 40 mg PO DAILY Qty: 90 RF: 4 paroxetine HCl [Paxil] 20 mg tablet 20 mg PO DAILY Qty: 90 RF: 4 lorazepam 0.5 mg tablet 0.5 mg PO BID PRN (Reason: anxiety) Qty: 10 RF: 0 albuterol sulfate [Ventolin HFA] 90 mcg/actuation HFA aerosol inhaler 2 puff Inhalation Q4H PRN PRN (Reason: shortness of breath or wheezing) Qty: 1 RF: 3 sertraline 50 mg tablet 50 mg PO DAILY Qty: 90 RF: 3 ondansetron 4 mg tablet,disintegrating 4 mg PO Q6H PRN (Reason: nausea and vomiting) Qty: 10 RF: 0 pantoprazole [Protonix] 20 mg tablet,delayed release (DR/EC) 20 mg PO DAILY Qty: 14 RF: 0 acetaminophen [Tylenol] 325 mg Tablet 650 mg PO Q6H PRN PRNQty: 0 RF: 0 Discharge Instructions Additional Instructions: Continue current medications. Start magnesium supplementation. Follow-up with primary care and [facility]. Return to ED if problems. Referrals: Larry Moulton MD [Primary Care Provider] - Medical Decision Making Patient presenting with complaints of nausea as well as a sensation of not being able to breathe because of feeling of something in her throat. She is in no distress. There is no stridor or respiratory issues. She is not febrile. Pulse ox is normal. Oropharynx is normal. There is no complaint of pain. Chest x-ray last week was unremarkable. Abdomen is benign. Suspect continued problems with anxiety. Will recheck her electrolytes as those have not been repeated since her last ED visit. Will give Compazine for her nausea. Magnesium and potassium remain a little low. Will place on magnesium supplementation. Does not appear to be on diuretics. Reports Compazine made her nausea better. Feels a little anxious but at this point is asking to return home. Continue follow-up with primary care and [facility]. Return to ED if problems. Medical Records Medical records reviewed: Yes I reviewed the patient's medical records. Lab Data Lab results reviewed: Yes I reviewed the patient's lab results. HPI General Mode of arrival: EMS . Date/Time Provider Initiated Documentation: 10/01/19 05:31 . Information obtained by: patient, EMS, RN notes reviewed and old records reviewed . HPI Narrative: Patient presents to ED with complaint of not feeling well. Patient has had multiple visits to the ED, primary care. She has also recently had an admission for diverticulitis. Currently denies pain. States she feels like she cannot breathe and has nausea. These appear to be her typical complaints and reviewing her previous visits. She denies having headache, chest pain, abdominal pain. She denies having a cough. She reports vomiting and decreased appetite. She was seen last week in the ED for complaint of shortness of breath. At that time other than electrolyte abnormalities her chest x-ray was unremarkable and troponin negative. She has subsequently followed up with primary care this week. She was prescribed Compazine for her complaint of nausea and vomiting. Symptoms are felt most likely to be related to anxiety. She is being followed by [facility]. Related Data Home Medications Medication Instructions Recorded Confirmed lancets [Prodigy Lancets] #100 ea 08/17/15 09/29/19 lancets [OneTouch Delica Lancets] #100 ea 03/22/16 09/29/19 metformin 1,000 mg tablet 1,000 mg PO BID #180 tab-cap 09/19/18 10/01/19 blood-glucose meter #1 each 01/22/19 09/29/19 blood sugar diagnostic #100 strip 03/04/19 09/29/19 paroxetine HCl 20 mg tablet 20 mg PO DAILY #90 tab 05/05/19 10/01/19 simvastatin 40 mg tablet 40 mg PO DAILY #90 tab 05/05/19 10/01/19 acetaminophen [Tylenol] 650 mg PO Q6H PRN PRN #0 tab 08/26/19 10/01/19 pantoprazole [Protonix] 20 mg PO DAILY #14 tab 08/28/19 10/01/19 lorazepam 0.5 mg tablet 0.5 mg PO BID PRN #10 tab 09/11/19 10/01/19 donepezil 10 mg tablet 10 mg PO DAILY #30 tab 09/17/19 10/01/19 albuterol sulfate 90 mcg/actuation 2 puff INHALATION Q4H PRN PRN #1 09/22/19 10/01/19 aerosol inhaler inh sertraline 50 mg tablet 50 mg PO DAILY #90 tab 09/22/19 10/01/19 ondansetron 4 mg disintegrating 4 mg PO Q6H PRN #10 tab 09/24/19 10/01/19 tablet prochlorperazine maleate 10 mg 10 mg PO BID PRN #20 tab 09/29/19 10/01/19 tablet magnesium oxide 400 mg PO BID #60 tab 10/01/19 Previous Rx's Medication Instructions Recorded metformin 1,000 mg tablet 1,000 mg PO BID #180 tab-cap 09/19/18 blood-glucose meter #1 each 01/22/19 blood sugar diagnostic #100 strip 03/04/19 paroxetine HCl 20 mg tablet 20 mg PO DAILY #90 tab 05/05/19 simvastatin 40 mg tablet 40 mg PO DAILY #90 tab 05/05/19 acetaminophen [Tylenol] 650 mg PO Q6H PRN PRN #0 tab 08/26/19 pantoprazole [Protonix] 20 mg PO DAILY #14 tab 08/28/19 lorazepam 0.5 mg tablet 0.5 mg PO BID PRN #10 tab 10/11/19 donepezil 10 mg tablet 10 mg PO DAILY #30 tab 09/17/19 albuterol sulfate 90 mcg/actuation 2 puff INHALATION Q4H PRN PRN #1 09/22/19 aerosol inhaler inh sertraline 50 mg tablet 50 mg PO DAILY #90 tab 09/22/19 ondansetron 4 mg disintegrating 4 mg PO Q6H PRN #10 tab 09/24/19 tablet prochlorperazine maleate 10 mg 10 mg PO BID PRN #20 tab 09/29/19 tablet magnesium oxide 400 mg PO BID #60 tab 10/01/19 Allergies Allergy/AdvReac Type Severity Reaction Status Date / Time iodine Allergy Unknown Unverified 09/29/19 13:55 General Stated Complaint: GenMedical RASHEL: 3 Review of Systems Narrative: As documented in HPI otherwise negative as below. Const: no fever, chills, weakness Resp: can't breath; no cough, pleuritic pain CV: no CP, diaphoresis, edema, syncope GI: nausea, vomiting; no abdominal pain, diarrhea Neuro: no headache, numbness, focal weakness, confusion PFSH Medical History Anxiety (Chronic) Depression (Inactive) Diabetes mellitus (Inactive) Times 3 years. History of CVA (cerebrovascular accident) (Inactive 12/02/91) a. 1991. Iatrogenic pulmonary embolism and infarction (Resolved) IVC clip-1974 Mild cognitive impairment with memory loss (Inactive) Osteoarthrosis (Inactive) both hips, right greater than left Osteopenia (Inactive) Panic attack (Inactive) Rupture of tendon of biceps, long head (Resolved 10/31/07) Surgical History History of bilateral salpingo-oophorectomy (Inactive) History of Surgical Procedure (Inactive) a. Cholecystectomy. b. Lysis of adhesions. c. Hysterectomy. d. Oophorectomy. 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 Pets and animals: No What is your relationship status?: How often do you talk on the phone with friends or family?: never How often do you get together with friends or relatives?: three or more times per week How often do you attend mandaeism or moravian services?: 4 or more times per year Panel score (0-1 are the most socially isolated patients): 2 What type of physical activity do you participate in: walking Duration: < 15 minutes/day Frequency: 1-2 times per week Marielle/Buddhism: Alevism Special marielle needs: No Seatbelt use: always Water heater temp set <120 deg: Yes Working smoke detector in home: Yes Fire extinguisher in home: Yes Do you feel safe at home: Yes Do you feel safe in your relationship?: Yes Additional Social history: in 1998. Lives in [place]. Moved in 2012. Has one granddaughter, only living relative. Lives in [place]. Social. Often sits on porch of [employer] and greets people. Exam Narrative Exam Narrative: Vitals: Afebrile. Normal vitals with normal room air pulse oximetry. Const: Obese elderly female in NAD. HEENT: NC/AT. Normal facial exam. Normal oropharynx. Eyes: Normal conjunctiva and sclera. Neck: Supple. Trachea midline. Lungs: Normal respiratory effort. Lungs are clear. Cor: RRR with loud murmur heard best at apex. Good rperipheral pulses. GI: Soft. NT/ND. No guarding or rebound. Neuro: Awake and alert with normal mentation. Clear speech. Good strength. Ext: No C/C. Trace to 1+ BLE edema. Skin: Warm and dry. Course Vital Signs Vital signs: Vital Signs Temperature 98.2 F 10/01/19 05:31 Pulse 66 10/01/19 05:31 Respiratory Rate 16 10/01/19 05:31 Blood Pressure 142/63 H 10/01/19 05:31 Pulse Oximetry 96 10/01/19 05:31 Temperature 98.2 F 10/01/19 05:31 Temperature Source Skin 10/01/19 05:31 Pulse 66 10/01/19 05:31 Respiratory Rate 16 10/01/19 05:31 Blood Pressure 142/63 H 10/01/19 05:31 Blood Pressure Position Sitting 10/01/19 05:31 Pulse Oximetry 96 10/01/19 05:31 Oxygen Delivery Method Room Air 10/01/19 05:31 Oxygen Flow Rate 0 10/01/19 05:31
[2019-10-01] MEDS: Prochlorperazine 10 MG TAB PO (06:08)
[2019-10-01 06:17] LABS: Anion Gap 6.8 mmol/L (3-11); BUN 6 mg/dL (7-18); CO2 30.2 mmol/L (21.0-32.0); Calcium 9.4 mg/dL (8.5-10.1); Chloride 103 mmol/L (98-107); Glucose 195 mg/dL (70-100); Magnesium 1.4 mg/dL (1.8-2.4); Potassium 3.2 mmol/L (3.5-5.1); Sodium 140 mmol/L (136-145)
[2019-10-01 06:51] VITALS: BP 128/51; PULSE 62; RESP 16; O2SAT 96
--- NOTE | 2019-10-01 06:51 | NUR.NOTE ---
Discharge instructions reviewed with verbal understanding. Magnesium script given. RCT called for transport home.
== END 2019-10-01 07:21 | disposition home or self-care (01) ==
PROVIDERS: Emergency Provider Emergency Medicine; PCP Family Medicine
DX: F41.9 Anxiety disorder, unspecified (principal); E87.6 Hypokalemia; E83.42 Hypomagnesemia; E11.9 Type 2 diabetes mellitus without complications; I10 Essential (primary) hypertension
CPT/HCPCS: 36415; 80048; 99284; 83735

== ENCOUNTER 2019-10-03 09:37 | Emergency (ER) | payer MEDICARE, SELFPAY ==
[2019-10-03] VITALS (21 sets, daily range): BP systolic 122–133; BP diastolic 43–56; PULSE 65–74; RESP 18; TEMP 36.7; O2SAT 95–98
--- NOTE | 2019-10-03 10:02 | ED.GENADUL_ITS ---
Discharge Plan Disposition Patient Disposition: HOME Condition: Stable Discharge Details Chief Complaint: GenMedical Clinical Impression: Anxiety Primary Care Provider: Larry Moulton ED Provider: Polo Davis Home Meds and New Rx's Prescriptions: Continued (DME) blood-glucose meter [OneTouch Ultra2 Meter] kit See Dose Instructions .ROUTE .MEDSUPPLY Qty: 1 RF: 0 donepezil 10 mg tablet 10 mg PO DAILY Qty: 30 RF: 11 metformin 1,000 mg tablet 1,000 mg PO BID Qty: 180 RF: 4 prochlorperazine maleate [Compazine] 10 mg tablet 10 mg PO BID PRN (Reason: nausea and vomiting) Qty: 20 RF: 0 (DME) lancets [Prodigy Lancets] 1 EACH misc 1 ea Miscellaneous BID Qty: 100 RF: 6 (DME) lancets [OneTouch Delica Lancets] 1 EACH misc 1 ea Miscellaneous BID Qty: 100 RF: 4 (DME) OneTouch Ultra Test strip 1 ea Miscellaneous BID Qty: 100 RF: 4 simvastatin [Zocor] 40 mg tablet 40 mg PO DAILY Qty: 90 RF: 4 paroxetine HCl [Paxil] 20 mg tablet 20 mg PO DAILY Qty: 90 RF: 4 lorazepam 0.5 mg tablet 0.5 mg PO BID PRN (Reason: anxiety) Qty: 10 RF: 0 albuterol sulfate [Ventolin HFA] 90 mcg/actuation HFA aerosol inhaler 2 puff Inhalation Q4H PRN PRN (Reason: shortness of breath or wheezing) Qty: 1 RF: 3 sertraline 50 mg tablet 50 mg PO DAILY Qty: 90 RF: 3 ondansetron 4 mg tablet,disintegrating 4 mg PO Q6H PRN (Reason: nausea and vomiting) Qty: 10 RF: 0 pantoprazole [Protonix] 20 mg tablet,delayed release (DR/EC) 20 mg PO DAILY Qty: 14 RF: 0 magnesium oxide 400 mg (241.3 mg magnesium) tablet 400 mg PO BID Qty: 60 RF: 0 acetaminophen [Tylenol] 325 mg Tablet 650 mg PO Q6H PRN PRNQty: 0 RF: 0 Discharge Instructions Instructions: Anxiety (ED) Additional Instructions: Continue your regular medications. Care management will arrange for social work to visit you in home this week. Return to the emergency department for any acute concerns. Medical Decision Making 85-year-old female with recurrent episodes of anxiety for which she takes lorazepam and restarted Paxil. She had recurrent anxiety and tightness of her breath at home this morning. EMS was called the patient transported to the ER. She arrives with normal vital signs including room air oxygenation of 97%. Speaking in full sentences. She is mildly anxious on exam. Given a popsicle and observed. Seen in consultation by care management who ag pieter with and will make arrangements for outpatient home health [facility] MANAGER in-home visit and potential referral to level 3 assisted living. Patient stable and improved. Will discharge to home. HPI General Mode of arrival: EMS . Date/Time Provider Initiated Documentation: 10/03/19 09:57 . Limitations to Documentation: no limitations . Information obtained by: patient and EMS . History of Present Illness 84 year old F presents to the emergency department with the chief complaint of Recurrent anxiety, shortness of breath at home. Recent change to medicatio, described as similar to prior episodes, and is localized to the chest. Patient reports no radiation. Patient started experiencing this minute(s) and it has been other (Improving). No relieving factors improve symptom(s), No exacerbating factors reported . Patient notes no other symptoms.. Patient did receive the following treatments prior to arrival, none Related Data Home Medications Medication Instructions Recorded Confirmed lancets [Prodigy Lancets] #100 ea 08/17/15 10/03/19 lancets [OneTouch Delica Lancets] #100 ea 03/22/16 10/03/19 metformin 1,000 mg tablet 1,000 mg PO BID #180 tab-cap 09/19/18 10/03/19 blood-glucose meter #1 each 01/22/19 10/03/19 blood sugar diagnostic #100 strip 03/04/19 10/03/19 paroxetine HCl 20 mg tablet 20 mg PO DAILY #90 tab 05/05/19 10/03/19 simvastatin 40 mg tablet 40 mg PO DAILY #90 tab 05/05/19 10/03/19 acetaminophen [Tylenol] 650 mg PO Q6H PRN PRN #0 tab 08/26/19 10/03/19 pantoprazole [Protonix] 20 mg PO DAILY #14 tab 08/28/19 10/03/19 lorazepam 0.5 mg tablet 0.5 mg PO BID PRN #10 tab 09/11/19 10/03/19 donepezil 10 mg tablet 10 mg PO DAILY #30 tab 09/17/19 10/03/19 albuterol sulfate 90 mcg/actuation 2 puff INHALATION Q4H PRN PRN #1 09/22/19 10/03/19 aerosol inhaler inh sertraline 50 mg tablet 50 mg PO DAILY #90 tab 09/22/19 10/03/19 ondansetron 4 mg disintegrating 4 mg PO Q6H PRN #10 tab 09/24/19 10/03/19 tablet prochlorperazine maleate 10 mg 10 mg PO BID PRN #20 tab 09/29/19 10/03/19 tablet magnesium oxide 400 mg PO BID #60 tab 10/01/19 10/03/19 Previous Rx's Medication Instructions Recorded metformin 1,000 mg tablet 1,000 mg PO BID #180 tab-cap 09/19/18 blood-glucose meter #1 each 01/22/19 blood sugar diagnostic #100 strip 03/04/19 paroxetine HCl 20 mg tablet 20 mg PO DAILY #90 tab 05/05/19 simvastatin 40 mg tablet 40 mg PO DAILY #90 tab 05/05/19 acetaminophen [Tylenol] 650 mg PO Q6H PRN PRN #0 tab 08/26/19 pantoprazole [Protonix] 20 mg PO DAILY #14 tab 08/28/19 lorazepam 0.5 mg tablet 0.5 mg PO BID PRN #10 tab 09/11/19 donepezil 10 mg tablet 10 mg PO DAILY #30 tab 09/17/19 albuterol sulfate 90 mcg/actuation 2 puff INHALATION Q4H PRN PRN #1 09/22/19 aerosol inhaler inh sertraline 50 mg tablet 50 mg PO DAILY #90 tab 09/22/19 ondansetron 4 mg disintegrating 4 mg PO Q6H PRN #10 tab 09/24/19 tablet prochlorperazine maleate 10 mg 10 mg PO BID PRN #20 tab 09/29/19 tablet magnesium oxide 400 mg PO BID #60 tab 10/01/19 Allergies Allergy/AdvReac Type Severity Reaction Status Date / Time iodine Allergy Unknown Unverified 10/03/19 09:42 General Stated Complaint: GenMedical RASHEL: 3 Review of Systems Narrative: 6 systems reviewed and otherwise negative [facility] Medical History Anxiety (Chronic) Depression (Inactive) Diabetes mellitus (Inactive) Times 3 years. History of CVA (cerebrovascular accident) (Inactive 12/02/91) a. 1991. Iatrogenic pulmonary embolism and infarction (Resolved) IVC clip-1974 Inappropriate behavior (Acute) Mild cognitive impairment with memory loss (Inactive) Osteoarthrosis (Inactive) both hips, right greater than left Osteopenia (Inactive) Palliative care patient (Acute) Panic attack (Inactive) Rupture of tendon of biceps, long head (Resolved 10/31/07) Surgical History History of bilateral salpingo-oophorectomy (Inactive) History of Surgical Procedure (Inactive) a. Cholecystectomy. b. Lysis of adhesions. c. Hysterectomy. d. Oophorectomy. Status post abdominal hysterectomy (Inactive) Status post breast biopsy (Inactive) Status post cholecystectomy (Inactive) Family History Son , age 52 Sudden cardiac arrest Father , killed by Nazis in front of her when she was 10 yo Murder Social History Smoking/Tobacco Use Status: Former Tobacco Use Tobacco: How many years used: 1 Second Hand Exposure: Yes Alcohol Intake: never Drug use: Never Substance use type: does not use Caregiver/Support person: No Household members: none Housing: apartment Number of Children: 1 number of grandchildren: 1 Communication Needs: Corrective Lenses Education Level: middle school Do you need help understanding health information?: Always 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 Pets and animals: No What is your relationship status?: How often do you talk on the phone with friends or family?: never How often do you get together with friends or relatives?: three or more times per week How often do you attend taoism or sabianist services?: 4 or more times per year Panel score (0-1 are the most socially isolated patients): 2 What type of physical activity do you participate in: walking Duration: < 15 minutes/day Frequency: 1-2 times per week Marielle/Restoration: Anglican Special marielle needs: No Seatbelt use: always Water heater temp set <120 deg: Yes Working smoke detector in home: Yes Fire extinguisher in home: Yes Do you feel safe at home: Yes Do you feel safe in your relationship?: Yes Additional Social history: in 1998. Lives in [place]. Moved in 2012. Has one granddaughter, only living relative. Lives in [place]. Social. Often sits on porch of [place] and greets people. Exam Narrative Exam Narrative: GEN: awake, alert, oriented 3. Pleasant, well groomed, interactive. HEAD: Normocephalic, atraumatic ENT: Mucous membranes moist, oropharynx unremarkable, External ear exam unremarkable EYES: PERRL, EOMI NECK: Full ROM, no JOSIAH, no menigismus CHEST/RESP: Nontender, clear to auscultation bilateral, no wheeze/rhonchi/rales CARDIOVASCULAR: RRR, no murmur, rub beth. 2+ Rad pulse bilateral ABDOMEN: Soft, nontender, no mass. +Bowel sounds EXT: Full ROM, no edema, no rash Neuro: Grossly normal neurologic exam, conversant, interactive. Psych: Speech fluent, thoughts congruent, affect somewhat anxious Course Vital Signs Vital signs: Vital Signs Temperature 36.7 C 10/03/19 09:38 Pulse 74 10/03/19 09:38 Respiratory Rate 18 10/03/19 09:38 Blood Pressure 128/49 L 10/03/19 09:38 Pulse Oximetry 97 10/03/19 09:38 Temperature 36.7 C 10/03/19 09:38 Temperature Source Skin 10/03/19 09:38 Pulse 74 10/03/19 09:38 Respiratory Rate 18 10/03/19 09:38 Respiratory Effort 10/03/19 09:43 Respiratory Depth Normal 10/03/19 09:43 Respiratory Pattern Normal 10/03/19 09:43 Blood Pressure 128/49 L 10/03/19 09:38 Blood Pressure Position Supine 10/03/19 09:38 Pulse Oximetry 97 10/03/19 09:38 Oxygen Delivery Method Room Air 10/03/19 09:38 Oxygen Flow Rate 0 10/03/19 09:38 Pain Level 7 10/03/19 09:38
--- NOTE | 2019-10-03 11:51 | PDOC.ERCMPRO ---
- If Service Date Differs Date of service: 10/03/19 Time of Service: 11:52 Care Management Progress Note S/O: CM was paged from the ED to visit with Alyssa, who has had 13 ED visits in the last two months. Alyssa was smiling, pleasant and engaged in conversation when CM met with her. She reported that she does not want to be in the ED, but that when she complains of SOB to the employees at the [facility] (her residence), they call for the ambulance. CM asked if she still feels short of breath, which she denies. Alyssa stated that she has been having anxiety, which feels like shortness of breath. Per MD, Alyssa was calm upon arrival, and has been medically cleared. CM CM discussed Alyssa's living situation with her. Alyssa agrees that she may need to have a higher level of care going forward. CM explained to ED staff that insurance/funding could be a barrier to Alyssa's placement. CM sent a referral to [facility] to add [facility] to her current services. CM also gave Alyssa information on [facility]. CM sent a referral to [facility] upon her previous inpatient discharge on 09/21/2019 for options counseling. Alyssa is agreeable to additional services. CM also explained that if she feels anxious she can call care management to assist in breathing techniques over the phone which may reduce ED visits. Alyssa reported being happy to return home. CM coordinated [facility] transportation via private vehicle. A: Alyssa is an 84 year old female seen in the ED at [facility] on 10/03/2019 for anxiety. P: Alyssa will return home with increased HH services, with the addition of [facility]. CM sent referral to HH notifying them of this change. Alyssa was also referred to [facility] to assist with intermediate [facility] and housing applications. CM previously sent referral to [facility] for options counseling. Alyssa is interested in placement at a level 3 facility, which CM supports. CM will follow up with Alyssa early next week to ensure connections have made made in order to support Alyssa with her action plan.
== END 2019-10-03 11:55 | disposition home or self-care (01) ==
PROVIDERS: Emergency Provider Emergency Medicine; PCP Family Medicine
DX: F41.9 Anxiety disorder, unspecified (principal); E11.9 Type 2 diabetes mellitus without complications; Z79.84 Long term (current) use of oral hypoglycemic drugs
CPT/HCPCS: 99283; 99282

== ENCOUNTER 2019-10-04 14:22 | Emergency (ER) | payer MEDICARE, SELFPAY ==
[2019-10-04] VITALS (25 sets, daily range): BP systolic 129–145; BP diastolic 47–69; PULSE 59–70; RESP 11–25; TEMP 36.5; O2SAT 94–98
--- NOTE | 2019-10-04 14:28 | ED.GENADUL_ITS ---
Discharge Plan Disposition Patient Disposition: HOME Condition: Improving Discharge Details Chief Complaint: Chest Pain Clinical Impression: Anxiety Primary Care Provider: Larry Moulton ED Provider: Polo Davis Home Meds and New Rx's Prescriptions: Continued (DME) blood-glucose meter [OneTouch Ultra2 Meter] kit See Dose Instructions .ROUTE .MEDSUPPLY Qty: 1 RF: 0 donepezil 10 mg tablet 10 mg PO DAILY Qty: 30 RF: 11 metformin 1,000 mg tablet 1,000 mg PO BID Qty: 180 RF: 4 prochlorperazine maleate [Compazine] 10 mg tablet 10 mg PO BID PRN (Reason: nausea and vomiting) Qty: 20 RF: 0 (DME) lancets [Prodigy Lancets] 1 EACH misc 1 ea Miscellaneous BID Qty: 100 RF: 6 (DME) lancets [OneTouch Delica Lancets] 1 EACH misc 1 ea Miscellaneous BID Qty: 100 RF: 4 (DME) OneTouch Ultra Test strip 1 ea Miscellaneous BID Qty: 100 RF: 4 simvastatin [Zocor] 40 mg tablet 40 mg PO DAILY Qty: 90 RF: 4 paroxetine HCl [Paxil] 20 mg tablet 20 mg PO DAILY Qty: 90 RF: 4 lorazepam 0.5 mg tablet 0.5 mg PO BID PRN (Reason: anxiety) Qty: 10 RF: 0 albuterol sulfate [Ventolin HFA] 90 mcg/actuation HFA aerosol inhaler 2 puff Inhalation Q4H PRN PRN (Reason: shortness of breath or wheezing) Qty: 1 RF: 3 sertraline 50 mg tablet 50 mg PO DAILY Qty: 90 RF: 3 ondansetron 4 mg tablet,disintegrating 4 mg PO Q6H PRN (Reason: nausea and vomiting) Qty: 10 RF: 0 pantoprazole [Protonix] 20 mg tablet,delayed release (DR/EC) 20 mg PO DAILY Qty: 14 RF: 0 magnesium oxide 400 mg (241.3 mg magnesium) tablet 400 mg PO BID Qty: 60 RF: 0 acetaminophen [Tylenol] 325 mg Tablet 650 mg PO Q6H PRN PRNQty: 0 RF: 0 Discharge Instructions Instructions: Anxiety (ED) Additional Instructions: Our care management team will follow up with you. Your lorazepam/Ativan is only currently scheduled to be given if needed. If you feel anxious at home, you may request to be given 0.5 mg of Ativan. Medical Decision Making 84-year-old female presents from home. Known to me from recent visits including yesterday. Plan has been for her to have an [facility] [place] [place] Home health visit tomorrow to explore options for assisted living placement. She states today that after eating chicken breast for lunch she felt some discomfort in her upper esophagus with acrid taste in her mouth. She did have a bowel movement that was somewhat loose upon arrival. She had recent administration of antibiotics and would also consider C. difficile. Patient given GI cocktail. Stool obtained for C diff testing (negative). She was seen by care management in the ED and still has plan for inhome [facility] [place] home health assessment in the AM. Patient states she feels anxious in her own home. States she is willing to consider changing domicile to an assisted living facility. Lab Data Lab results reviewed: Yes I reviewed the patient's lab results. ECG Data Attestation: I personally reviewed and interpreted this ECG (s) as follows: Interpretation: Normal sinus rhythm, rate 67, QRS is narrow, nonspecific ST segment flattening throughout that is not significant change versus comparison of May 29, 2016 [facility] General Mode of arrival: EMS . Date/Time Provider Initiated Documentation: 10/04/19 14:33 . Limitations to Documentation: no limitations . Information obtained by: patient and EMS . History of Present Illness 84 year old F presents to the emergency department with the chief complaint of Esophageal discomfort after eating chicken breast, described as mild, Quality is described as dull, and is localized to the neck and chest. Patient reports no radiation. Patient started experiencing this hour(s) and it has been constant. No relieving factors improve symptom(s), No exacerbating factors reported . Patient notes denies fever/chills and loss of appetite. Patient did receive the following treatments prior to arrival, none Related Data Home Medications Medication Instructions Recorded Confirmed lancets [Prodigy Lancets] #100 ea 08/17/15 10/03/19 lancets [OneTouch Delica Lancets] #100 ea 03/22/16 10/03/19 metformin 1,000 mg tablet 1,000 mg PO BID #180 tab-cap 09/19/18 10/04/19 blood-glucose meter #1 each 01/22/19 10/03/19 blood sugar diagnostic #100 strip 03/04/19 10/03/19 paroxetine HCl 20 mg tablet 20 mg PO DAILY #90 tab 05/05/19 10/04/19 simvastatin 40 mg tablet 40 mg PO DAILY #90 tab 05/05/19 10/04/19 acetaminophen [Tylenol] 650 mg PO Q6H PRN PRN #0 tab 08/26/19 10/04/19 pantoprazole [Protonix] 20 mg PO DAILY #14 tab 08/28/19 10/04/19 lorazepam 0.5 mg tablet 0.5 mg PO BID PRN #10 tab 09/11/19 10/04/19 donepezil 10 mg tablet 10 mg PO DAILY #30 tab 09/17/19 10/04/19 albuterol sulfate 90 mcg/actuation 2 puff INHALATION Q4H PRN PRN #1 09/22/19 10/04/19 aerosol inhaler inh sertraline 50 mg tablet 50 mg PO DAILY #90 tab 09/22/19 10/04/19 ondansetron 4 mg disintegrating 4 mg PO Q6H PRN #10 tab 09/24/19 10/04/19 tablet prochlorperazine maleate 10 mg 10 mg PO BID PRN #20 tab 09/29/19 10/04/19 tablet magnesium oxide 400 mg PO BID #60 tab 10/01/19 10/04/19 Previous Rx's Medication Instructions Recorded metformin 1,000 mg tablet 1,000 mg PO BID #180 tab-cap 09/19/18 blood-glucose meter #1 each 01/22/19 blood sugar diagnostic #100 strip 03/04/19 paroxetine HCl 20 mg tablet 20 mg PO DAILY #90 tab 05/05/19 simvastatin 40 mg tablet 40 mg PO DAILY #90 tab 05/05/19 acetaminophen [Tylenol] 650 mg PO Q6H PRN PRN #0 tab 08/26/19 pantoprazole [Protonix] 20 mg PO DAILY #14 tab 08/28/19 lorazepam 0.5 mg tablet 0.5 mg PO BID PRN #10 tab 09/11/19 donepezil 10 mg tablet 10 mg PO DAILY #30 tab 09/17/19 albuterol sulfate 90 mcg/actuation 2 puff INHALATION Q4H PRN PRN #1 09/22/19 aerosol inhaler inh sertraline 50 mg tablet 50 mg PO DAILY #90 tab 09/22/19 ondansetron 4 mg disintegrating 4 mg PO Q6H PRN #10 tab 09/24/19 tablet prochlorperazine maleate 10 mg 10 mg PO BID PRN #20 tab 09/29/19 tablet magnesium oxide 400 mg PO BID #60 tab 10/01/19 Allergies Allergy/AdvReac Type Severity Reaction Status Date / Time iodine Allergy Unknown Unverified 10/04/19 14:31 General RASHEL: 3 Review of Systems Narrative: Some acrid taste in mouth at home. No fever. No chest pain or difficulty breathing. 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 Pets and animals: No What is your relationship status?: How often do you talk on the phone with friends or family?: never How often do you get together with friends or relatives?: three or more times per week How often do you attend muslim or anabaptism services?: 4 or more times per year Panel score (0-1 are the most socially isolated patients): 2 What type of physical activity do you participate in: walking Duration: < 15 minutes/day Frequency: 1-2 times per week Marielle/Anglican: Restorationist Special marielle needs: No Seatbelt use: always Water heater temp set <120 deg: Yes Working smoke detector in home: Yes Fire extinguisher in home: Yes Do you feel safe at home: Yes Do you feel safe in your relationship?: Yes Additional Social history: in 1998. Lives in [place]. Moved in 2012. Has one granddaughter, only living relative. Lives in [place]. Social. Often sits on porch of [place] and greets people. Exam Narrative Exam Narrative: GEN: awake, alert, oriented 3. Pleasant, well groomed, interactive. HEAD: Normocephalic, atraumatic ENT: Mucous membranes moist, oropharynx unremarkable, External ear exam unremarkable EYES: PERRL, EOMI NECK: Full ROM, no JOSIAH, no menigismus CHEST/RESP: Nontender, clear to auscultation bilateral, no wheeze/rhonchi/rales CARDIOVASCULAR: RRR, systolic ejection murmur, rub beth. 2+ Rad pulse bilateral ABDOMEN: Soft, nontender, no mass. +Bowel sounds EXT: Full ROM, no edema, no rash Neuro: Grossly normal neurologic exam, conversant, interactive. Psych: Speech fluent, thoughts congruent, affect anxious
[2019-10-04] MEDS: LORazepam 0.5 MG TAB PO (15:06)
== END 2019-10-04 16:55 | disposition home or self-care (01) ==
PROVIDERS: Emergency Provider Emergency Medicine; PCP Family Medicine
DX: F41.9 Anxiety disorder, unspecified (principal); R19.7 Diarrhea, unspecified; E11.9 Type 2 diabetes mellitus without complications; I10 Essential (primary) hypertension
CPT/HCPCS: 36415; 93005; 99284; 87324; 93010

== ENCOUNTER 2019-10-07 12:53 | Observation (INO) | payer MEDICARE, SELFPAY ==
[2019-10-07 12:53] VITALS: BP 134/60; PULSE 64; RESP 20; TEMP 36.6; O2SAT 95
[2019-10-07 12:56] VITALS: RESP 20
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
[2019-10-07 14:03] VITALS: BP 119/60; PULSE 61; O2SAT 97
[2019-10-07 15:46] VITALS: BP 133/59; PULSE 57; RESP 30; O2SAT 96
[2019-10-07] MEDS: LORazepam 0.5 MG TAB PO (17:41)
--- NOTE | 2019-10-07 18:55 | CMSP_ITS ---
- If Service Date Differs Date of service: 10/07/19 Time of Service: 18:55 Care Management Safety Plan Alyssa is an 84 year old female known to due to many recent visits to the ED. sent several referrals to community partners on Alyssa's behalf on 10/03/19. Alyssa was seen by sand car worker on 10/05/19. She was also contacted by Cyndie at [facility] on 10/06/19. Despite efforts to wrap her in community supports, Alyssa presented to the ED today with worsening anxiety and per MD has reported suicidal ideation with a plan to overdose if sent home. [facility] worker Juju visited with Alyssa and reported that she is suicidal. Huddle participants: Noelle RN Water Maintenance Supervisor; SERENE Galarza; LORETTA Daniels RN; RAJEEV Mendoza. Per huddle discussion, Michell reports no CPSO required at this time. Please refer to provider note for further information. VOLUNTARY FOR INPATIENT PSYCHIATRIC STABILIZATION. Patient is appropriate in all interactions since arriving at [facility]; Pt has demonstrated appropriate coping and communication skills, has articulated his or her needs and concerns and is fully engaged during staff interactions. Safety plan has been established with patient, and care team, to adhere to patient goals, identify restrictions based on behavioral status, address nutrition, and determine allowed personal belongings, tools for hygiene and personal care. Determine level of activity including ambulation, level of supervision, visitors, and determine privileges based on behaviors and level of engagement by pt. SAFETY PLAN: 1. Will remain on suicide precautions. In Paper Clothes or gown, per RN discretion. 2. CPSO is not required at this time, per provider. 3. May have paper cups, plates, finger foods as well as a metal spoon with which to eat meals. [facility] staff will be responsible for accounting of utensils after meals. 4. Follow [facility] Management of the Admitted Behavioral Health Patient policy. 5. Comfort bath system only. 6. No personal belongings 7. Visitors-No visitors at this time 8. Activities: TV, cart items 9. Bathroom privileges 10. Phone calls ingoing and outgoing permitted at RN discretion. 11. Due to VOLUNTARY status, if patient wishes to leave [facility], the [facility] hospital tray service worker must be contacted to re-evaluate patient prior to patient exiting the building. Patient is currently voluntarily at [facility] and seeking inpatient admission when a bed becomes available. [facility] Frontline Tubing Mill Setter will continue seeking placement. Please contact the Liquid Floor And Wall Applier Storehouse Clerk ([phone]) and [facility] Tubing Mill Setter ([phone]) for any needed changes in the Safety Plan. Safety plan has been provided to interdepartmental care team.
[2019-10-07 19:02] LABS: Abs Immature Grans 0.02 k/cumm (0.0-0.09); Absolute Lymphocyte Count 3.35 k/cumm (1.2-3.4); Absolute Monocyte Count 0.72 k/cumm (0.11-0.7); Basophils % 0.2; Eosinophils % 1.6; HCT 36.8 % (36.0-46.0); HGB 11.7 g/dL (12.0-15.5); Immature Grans % 0.2; Lymphocytes % 27.4; Mean Corp. HGB Concentration 31.8 g/dL (32.0-36.0); Mean Platelet Volume 8.9 fL (8.0-11.0); Monocytes % 5.9; Neutrophils % 64.7; Platelet Count 254 x1000/uL (130-400); RBC 4.18 m/cumm (4.00-5.20); RBC Distribution Width 14.1 % (11.7-14.6); White Blood Cell Count 12.23 k/cumm (4.4-10.8)
[2019-10-07 19:04] LABS: Absolute Basophil Count 0.02 k/cumm (0.0-0.2); Absolute Neutrophil Count 7.91 k/cumm (1.2-6.7)
[2019-10-07 19:27] LABS: ALT 16 U/L (14-59); AST 11 U/L (15-37); Albumin 3.3 g/dL (3.4-5.0); Alkaline Phosphatase 59 U/L (46-116); Anion Gap 6.8 mmol/L (3-11); BUN 10 mg/dL (7-18); Bilirubin, Total 0.4 mg/dL (0.2-1.0); CO2 31.2 mmol/L (21.0-32.0); Calcium 8.4 mg/dL (8.5-10.1); Chloride 101 mmol/L (98-107); Glucose 170 mg/dL (70-100); Potassium 3.1 mmol/L (3.5-5.1); Sodium 139 mmol/L (136-145); Total Protein 6.5 g/dL (6.4-8.2)
[2019-10-07 19:29] LABS: ETHANOL BLOOD < 3.0 mg/dL (<3)
[2019-10-07 19:39] LABS: Salicylate < 2.8 mg/dL (2.8-20.0)
[2019-10-07 19:48] LABS: Acetaminophen < 2 ug/mL (10-30)
[2019-10-07] MEDS: Potassium Chloride 20 MEQ TABCR PO (19:50)
--- NOTE | 2019-10-07 20:06 | NUR.NOTE ---
Nursing Note: Granddaughter's phone number is [phone], Marge Palenciasachin. She would like to be updated if possible with any change in plan or location of pt. Pt aware and states this is ok. Pt gives verbal consent for granddajohn Bird to have any and all information regarding her care or planning to this nurse at 2007 on this date.
--- NOTE | 2019-10-07 20:11 | NUR.NOTE ---
Nursing Note: Care assumed at this time. Pt sitting upright in chair in not apparent distress. Alert, happily eating a snack.
[2019-10-07 20:27] LABS: Bilirubin Negative (Negative); Blood Trace-intact (Negative); Clarity Clear (Clear); Glucose Negative (Negative); Ketones Negative (Negative); Leukocyte Esterase Moderate (Negative); Nitrite Negative (Negative); Urobilinogen 0.2 EU/dL (Up TO 0.2)
[2019-10-07 20:30] LABS: Epithelial Cells Moderate HPF (Negative); WBC >50 HPF (0-5)
[2019-10-07 20:31] LABS: Bacteria Many HPF (Negative); C & S Indicated? No/Sq. Contamination; Casts Negative LPF (Negative); Crystals Negative HPF (Negative); Mucus Negative (Negative)
[2019-10-07 20:35] LABS: *AMPHETAMINES SCREEN URINE Negative (Negative); *BARBITURATES SCREEN URINE Negative (Negative); *BENZODIAZEPINES SCREEN URINE Negative (Negative); Cannabinoids THC Negative (Negative); Cocaine Screen,Urine Negative (Negative); METHADONE URINE SCREEN Negative (Negative); OPIATES URINE SCREEN Negative (Negative)
[2019-10-07 20:36] LABS: Tricyclic Antidepressants Negative (Negative)
--- NOTE | 2019-10-07 21:00 | NUR.NOTE ---
Assumed care of pt. reports from Maris. Plan for admission, awaiting bed placement.
--- NOTE | 2019-10-07 21:01 | NUR.NOTE ---
Nursing Note: Report given to Russel Carpio RN at this time. Pt sitting upright in recliner in no distress. Smiling, pleasant.
--- NOTE | 2019-10-07 21:42 | HPE_ITS ---
Date of service: 10/07/19 Time of Service: 21:42 Assessment and Plan Assessment and plan (1) Suicidal ideation: Status: Acute Assessment and plan: admission under observation w/ patient sitter; patient remains voluntary admission but [facility] and health care administrator should be notified if patient attempts to leave. will ask nursing to obtain current med list from Dr. Larry Moulton's office. According to our list she is on both Paxil and Zoloft. I will hold on prescribing either until we can get an updated list. (2) Anxiety: Status: Chronic Assessment and plan: as listed above. Await selection of ant idepressant/antianxiety until we get completed home med list from her PCP (3) Hypomagnesemia: Status: Chronic Assessment and plan: continue oral replacement; repeat levels in a.m. (4) Non-insulin dependent type 2 diabetes mellitus: Status: Chronic Assessment and plan: monitor blood sugars AC/HS; continue home dose of metformin; cover elevated glucose readings w/ Novolog per insulin sensitive sliding scale. (5) UTI (urinary tract infection): Status: Acute Assessment and plan: obtain urine culture and cover w/ oral Cipro 500 mg bid x 3days. Qualifiers: Hematuria presence: without hematuria Urinary tract infection type: acute cystitis Qualified Code(s): N30.00 - Acute cystitis without hematuria (6) Hypokalemia: Status: Acute Assessment and plan: replace orally and recheck levels in a.m. along w/ Mg++ level History of Present Illness History of Present Illness Chief Complaint: suicidal ideation, anxiety Narrative: 84-year-old female with a history of dementia, anxiety, hypertension, obesity who presents for complaint of shortness of breath and feeling like something stuck in her throat while eating at home. Patient has presented to the ER multiple times with similar complaints including twice over the weekend. Each time her workup has not revealed any organic basis for her complaints. Patient lives at [facility] and receives services from [facility] and apparently multiple referrals have been made by her lead case manager to several community partners to increase supportive care for the patient in her home. Despite this the patient does not feel safe at home, is very anxious and has expressed concerns that she might take an overdose of pills if she returns home. Juju, a mental health worker at [facility] was contacted and evaluated her in the ER and deemed her to have suicidal ideations. According to [employer] [employer], the patient was not voicing any suicidal plans to her while in the ER, but apparently had expressed these thoughts to Dr. Camila Singh. According to Dr. Singh's conversation w/ Kelly Flores, lead case manager, the patient was to be evaluated by home health and community connections this week and there had been referrals made for inpatient placement such as [facility] in [place]. Patient is voluntarily being admitted under observation pending referral for inpatient care for her depression, anxiety and suicidal behavior. Review of Systems Constitutional Constitutional: Reports chills (no rigors, just hot and cold feeling) and Reports poor appetite Cardiovascular Cardiovascular: Reports system reviewed and no additional complaints, except as docu Respiratory Respiratory: Reports system reviewed and no additional complaints, except as docu Gastrointestinal Gastrointestinal: Reports early satiety Genitourinary Genitourinary: Denies hematuria, Reports urinary frequency and Reports dysuria Musculoskeletal Musculoskeletal: Reports system reviewed and no additional complaints, except as docu Integumentary/Breasts Skin/Breast: Reports system reviewed and no additional complaints, except as docu Neurologic Neurologic: Reports memory loss Psychiatric Psychiatric: Reports anxiety, Reports change in appetite (depressed appetite), Reports difficulty concentrating, Reports memory loss and Reports suicidal ideation (she has no definitive plans but admits to thinking about taking all her med) Endocrine Endocrine: Reports system reviewed and no additional complaints, except as docu Hematologic/Lymphatic Hematologic/Lymphatic: Reports system reviewed and no additional complaints, except as docu Allergic/Immunologic Allergic/Immunologic: Reports system reviewed and no additional complaints, except as docu [facility] Medical History (Updated 10/07/19 @ 22:08 by Braxton Gilman) Anxiety (Chronic) Depression (Inactive) Diabetes mellitus (Inactive) Times 3 years. History of CVA (cerebrovascular accident) (Inactive 12/02/91) a. 1991. History of DVT (deep vein thrombosis) (Inactive) a. History of right DVT and PE. b. IVC filter placed 40 years ago. Iatrogenic pulmonary embolism and infarction (Resolved) IVC clip-1974 Inappropriate behavior (Acute) Mild cognitive impairment with memory loss (Chronic) Osteoarthrosis (Inactive) both hips, right greater than left Osteopenia (Inactive) Palliative care patient (Chronic) Panic attack (Inactive) Rupture of tendon of biceps, long head (Resolved 10/31/07) Surgical History History of bilateral salpingo-oophorectomy (Inactive) History of Surgical Procedure (Inactive) a. Cholecystectomy. b. Lysis of adhesions. c. Hysterectomy. d. Oophorectomy. Status post abdominal hysterectomy (Inactive) Status post breast biopsy (Inactive) Status post cholecystectomy (Inactive) Family History Son , age 52 Sudden cardiac arrest Father , killed by Nazis in front of her when she was 10 yo Murder Social History Smoking/Tobacco Use Status: Former Tobacco Use Tobacco: How many years used: 1 Second Hand Exposure: Yes Alcohol Intake: never Drug use: Never Substance use type: does not use Caregiver/Support person: No Household members: none Housing: apartment Number of Children: 1 number of grandchildren: 1 Communication Needs: Corrective Lenses Education Level: middle school Do you need help understanding health information?: Always 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 Pets and animals: No What is your relationship status?: How often do you talk on the phone with friends or family?: never How often do you get together with friends or relatives?: three or more times per week How often do you attend moravian or synagogue services?: 4 or more times per year Panel score (0-1 are the most socially isolated patients): 2 What type of physical activity do you participate in: walking Duration: < 15 minutes/day Frequency: 1-2 times per week Marielle/Oriental Orthodox: Zoroastrian Special marielle needs: No Seatbelt use: always Water heater temp set <120 deg: Yes Working smoke detector in home: Yes Fire extinguisher in home: Yes Do you feel safe at home: No (unsure why) Do you feel safe in your relationship?: Yes Additional Social history: in 1998. Lives in [place]. Moved in 2012. Has one granddaughter, only living relative. Lives in [place]. Social. Often sits on porch of [employer] and greets people. Meds Home Medications and Allergies Home Medications Medication Instructions Recorded Confirmed Type lancets [Rubioy Lancets] #100 ea 08/17/15 10/07/19 History lancets [OneTouch Delica Lancets] #100 ea 03/22/16 10/07/19 History metformin 1,000 mg tablet 1,000 mg PO BID #180 tab-cap 09/19/18 10/07/19 Rx blood-glucose meter #1 each 01/22/19 10/07/19 Rx blood sugar diagnostic #100 strip 03/04/19 10/07/19 Rx paroxetine HCl 20 mg tablet 20 mg PO DAILY #90 tab 05/05/19 10/07/19 Rx simvastatin 40 mg tablet 40 mg PO DAILY #90 tab 05/05/19 10/07/19 Rx acetaminophen [Tylenol] 650 mg PO Q6H PRN PRN #0 tab 08/26/19 10/07/19 Rx pantoprazole [Protonix] 20 mg PO DAILY #14 tab 08/28/19 10/07/19 Rx lorazepam 0.5 mg tablet 0.5 mg PO BID PRN #10 tab 09/11/19 10/07/19 Rx donepezil 10 mg tablet 10 mg PO DAILY #30 tab 09/17/19 10/07/19 Rx albuterol sulfate 90 mcg/actuation 2 puff INHALATION Q4H PRN PRN #1 09/22/19 10/07/19 Rx aerosol inhaler inh ondansetron 4 mg disintegrating 4 mg PO Q6H PRN #10 tab 09/24/19 10/07/19 Rx tablet prochlorperazine maleate 10 mg 10 mg PO BID PRN #20 tab 09/29/19 10/07/19 Rx tablet magnesium oxide 400 mg PO BID #60 tab 10/01/19 10/07/19 Rx sertraline 50 mg tablet 50 mg PO DAILY #90 tab 10/05/19 10/07/19 Rx Allergies Allergy/AdvReac Type Severity Reaction Status Date / Time iodine Allergy Unknown Unverified 10/07/19 12:56 Exam Const General: cooperative, healthy appearing, comfortable and no acute distress Nutritional Appearance: obese Orientation: alert, awake and oriented x3 Neck Neck: normal visual inspection, full ROM, no lymphadenopathy, trachea midline, supple and no JVD Thyroid: thyroid normal Carotids: normal carotid upstroke Resp Effort & Inspection: normal respiratory effort and able to speak in complete sentences Auscultation: clear to auscultation bilaterally Cardio Jugular venous pressure: no JVD Palpation: normal PMI Rate: regular rate Rhythm: regular rhythm Heart Sounds: S1 normal, S2 normal and murmur systolic blowing, III/, at the base and at the left sternal border Bruits: no abdominal aortic bruits and no carotid bruits Pulses: normal peripheral pulses GI Inspection: obesity Palpation: soft, no hepatosplenomegaly and nontender Auscultation: normal bowel sounds Rectal Exam - female: deferred General: bladder normal to inspection, bladder normal to palpation and No CVA tenderness Bimanual Exam- Vagina & Uterus: bladder normal to palpation Skin General skin exam: no rashes or lesions noted, elasticity normal and turgor normal Neuro General: alert, awake, oriented x3, moves all extremities and no focal motor deficits Extrem General: normal to inspection, full ROM, no joint enlargement, no clubbing, cyanosis or edema, no pedal edema and no calf tenderness Psych Appearance: grossly normal and well kempt Mental Status: mental status grossly normal Speech and Movement: speech and movement normal Mood: congruent mood Affect: normal affect Attitude: cooperative Thought Process: normal Thought Content: normal Insight: insight good Judgment: judgment good Results Labs Result diagrams: 10/07/19 18:53 10/07/19 18:53 Labs: Laboratory Results - last 24 hr 10/07/19 10/07/19 10/07/19 18:53 18:53 18:53 WBC 12.23 H RBC 4.18 Hgb 11.7 L Hct 36.8 MCV 88.0 MCH 28.0 MCHC 31.8 L RDW 14.1 Plt Count 254 MPV 8.9 Immature Gran % 0.2 Neutrophils % 64.7 Lymphocytes % 27.4 Monocytes % 5.9 Eosinophils % 1.6 Basophils % 0.2 Absolute Neutrophils 7.91 H Absolute Lymphocytes 3.35 Absolute Monocytes 0.72 H Absolute Eosinophils 0.20 Absolute Basophils 0.02 Sodium 139 Potassium 3.1 L Chloride 101 Carbon Dioxide 31.2 Anion Gap 6.8 BUN 10 Creatinine 0.80 Estimated GFR/1.73 m2 >= 60.00 Glucose 170 H Calcium 8.4 L Total Bilirubin 0.4 AST 11 L ALT 16 Alkaline Phosphatase 59 Total Protein 6.5 Albumin 3.3 L TSH 3.30 Urine Color Urine Clarity Urine pH Ur Specific [place] Urine Protein Urine Ketones Urine Blood Urine Nitrite Urine Bilirubin Urine Urobilinogen Ur Leukocyte Esterase Urine RBC Urine WBC Ur Epithelial Cells Urine Crystals Urine Bacteria Urine Casts Urine Mucus Urine Other Ur Culture Indicated? Urine Glucose Salicylates < 2.8 L Urine Opiates Screen Urine Methadone Screen Acetaminophen < 2 L Ur Barbiturates Screen Ur Tricyclics Screen Ur Amphetamines Screen U Benzodiazepines Scrn Urine Cocaine Screen Ur THC Screen Ethyl Alcohol < 3.0 10/07/19 10/07/19 20:00 20:00 WBC RBC Hgb Hct MCV MCH MCHC RDW Plt Count MPV Immature Gran % Neutrophils % Lymphocytes % Monocytes % Eosinophils % Basophils % Absolute Neutrophils Absolute Lymphocytes Absolute Monocytes Absolute Eosinophils Absolute Basophils Sodium Potassium Chloride Carbon Dioxide Anion Gap BUN Creatinine Estimated GFR/1.73 m2 Glucose Calcium Total Bilirubin AST ALT Alkaline Phosphatase Total Protein Albumin TSH Urine Color Yellow Urine Clarity Clear Urine pH 7.0 Ur Specific [place] 1.010 Urine Protein Negative Urine Ketones Negative Urine Blood Trace-intact H Urine Nitrite Negative Urine Bilirubin Negative Urine Urobilinogen 0.2 Ur Leukocyte Esterase Moderate H Urine RBC Not Applicable Urine WBC >50 Ur Epithelial Cells Moderate Urine Crystals Negative Urine Bacteria Many Urine Casts Negative Urine Mucus Negative Urine Other Many transitional Ur Culture Indicated? No/sq. contamination Urine Glucose Negative Salicylates Urine Opiates Screen Negative Urine Methadone Screen Negative Acetaminophen Ur Barbiturates Screen Negative Ur Tricyclics Screen Negative Ur Amphetamines Screen Negative U Benzodiazepines Scrn Negative Urine Cocaine Screen Negative Ur THC Screen Negative Ethyl Alcohol Last Vital Signs Temp 36.6 C 10/07/19 12:53 Pulse 57 L 10/07/19 15:46 Resp 30 H 10/07/19 15:46 BP 133/59 L 10/07/19 15:46 Pulse Ox 96 10/07/19 15:46
[2019-10-07 22:56] VITALS: BP 123/61; PULSE 65; RESP 16; TEMP 36.4; O2SAT 94
--- NOTE | 2019-10-07 23:19 | NUR.NOTE ---
Pt transported to room 234 with RN and [facility]. Belongings left in 1 bag at RN station
[2019-10-08] MEDS: Ciprofloxacin 500 MG TAB PO ×2 (00:19→08:06)
[2019-10-08] MEDS: Enoxaparin 40 MG/0.4 ML SYR SC (00:19)
[2019-10-08] MEDS: Potassium Chloride 10 MEQ CAPCR 20 MEQ PO ×2 (00:19→08:06)
[2019-10-08 02:22] VITALS: BP 138/63; PULSE 64; RESP 18; TEMP 36.6; O2SAT 95
[2019-10-08] MEDS: Acetaminophen 325 MG TAB PO (03:58)
[2019-10-08] MEDS: LORazepam 0.5 MG TAB PO ×3 (03:59→13:28)
[2019-10-08 07:25] LABS: Platelet Count 252 x1000/uL (130-400)
[2019-10-08 07:44] VITALS: BP 122/68; PULSE 64; RESP 17; TEMP 36.3; O2SAT 95
[2019-10-08 07:51] LABS: Anion Gap 8.2 mmol/L (3-11); BUN 9 mg/dL (7-18); CO2 28.8 mmol/L (21.0-32.0); CREATININE 0.77 mg/dL (0.55-1.02); Calcium 8.4 mg/dL (8.5-10.1); Chloride 105 mmol/L (98-107); Glucose 173 mg/dL (70-100); Magnesium 1.8 mg/dL (1.8-2.4); Potassium 3.7 mmol/L (3.5-5.1); Sodium 142 mmol/L (136-145)
[2019-10-08] MEDS: Magnesium Oxide 400 MG TAB PO (08:06)
[2019-10-08] MEDS: Simvastatin 40 MG TAB PO (08:06)
[2019-10-08] MEDS: Pantoprazole 20 MG TABCR PO (08:06)
[2019-10-08] MEDS: Insulin Aspart 300 UNITS/3 ML PEN SC (08:07)
[2019-10-08] MEDS: Donepezil 5 MG TAB 10 MG PO (08:11)
[2019-10-08] MEDS: metFORMIN 500 MG TAB 1000 MG PO (08:12)
--- NOTE | 2019-10-08 10:21 | PDOC.MHCN ---
Date of service: 10/07/19 Time of Service: 14:28 Mental Health Crisis Note Presenting Issue How did you arrive at the ED and why did you come: I was requested by ER to assess clt regarding possible SI. The clt doesn't want to go home because she is afraid of acting on SI. Precipitating Factors Clt was reported by ER Doc that clt was suffering from SI with a plan to OD on medications if she returns home. I met with the clt and she said that she didn't want to return home because she thought something bad would happen. The clt was initially reluctant but did substantiate that she did have active SI with a plan to OD on medications. Disposition BEHAVIOR: Initially guarded but did relinquish her plan and that she had active SI. EYE CONTACT: Eye contact was good. I noticed that the clt flinched. She said that she had issues with her left eye that started about 2 wks causing blurred vision. MOOD: PLeasant AFFECT: Pleasant and smiling. APPETITE: Good SLEEP(trouble falling/staying asleep: Clt having issues with poor sleep Plan Clt has active SI with a plan so the clt will be staying under voluntary status. Clt is receptive toward to treatment. Clt has a dx of dementia and there is a plan to get clt to [facility] ger[facility] psych [facility].
--- NOTE | 2019-10-08 12:12 | PDOC.MHCN_ITS ---
Mental Health Crisis Note Presenting Issue How did you arrive at the ED and why did you come: Blaise came in with active SI with plan. Precipitating Factors Blaise has been cooperative with staff. She still states that she has active SI and willing to go for treatment. I did the three word test regarding blaise's dementia. First time, she got 1 out of 3. Second time, she got three out of three. I let several minutes go by and she got three out of three for the 3rd t rishi. Disposition BEHAVIOR: Cooperative EYE CONTACT: Good MOOD: Pleasant AFFECT: Pleasant affect APPETITE: Good SLEEP(trouble falling/staying asleep: Good Plan Blaise will stay awaiting placement in a psych unit under voluntary status.
--- NOTE | 2019-10-08 13:04 | DSE_ITS ---
Date of service: 10/08/19 Time of Service: 13:04 DS: Diagnosis Discharge Diagnosis (1) Suicidal ideation: Status: Acute (2) Anxiety: Status: Chronic (3) Hypomagnesemia: Status: Chronic (4) Non-insulin dependent type 2 diabetes mellitus: Status: Chronic (5) UTI (urinary tract infection): Status: Acute (6) Hypokalemia: Status: Acute Discharge Plan Disposition Patient Disposition: HOSPITAL, NON-SPECIFIC Condition: Stable Discharge Details Chief Complaint: SOB Clinical Impression: Anxiety, Suicidal ideation Reason For Visit: SUICIDAL IDEATIONS Admit Date/Time: 10/07/19 18:26 Admit Provider: Braxton Gilman Attending Provider: Braxton Gilman Primary Care Provider: Larry Moulton ED Provider: Michell Dennis [facility] Course Hospital Course: 84-year-old female with a history of mild dementia, anxiety, hypertension, obesity who presents to the ED for complaint of shortness of breath and feeling like something stuck in her throat while eating at home. Patient has presented to the ER multiple times with similar complaints including twice over the weekend. Each time her workup has not revealed any organic basis for her complaints. Patient lives at [facility] and receives services from [facility] and apparently multiple referrals have been made by her telephonic case manager to several community partners to increase supportive care for the patient in her home. Despite this the patient does not feel safe at home, is very anxious and has expressed concerns that she might take an overdose of pills if she returns home. Juju, a mental health worker at [facility] was contacted and evaluated her in the ED and deemed her to have suicidal ideation. She continued to express these thoughts. referrals have been made for inpatient placement and she was accepted at [facility] in [facility]. Patient was voluntarily referred to observation pending inpatient treatment for her depression, anxiety and suicidal ideation. medical screening did show a urinary tract infection she will be treated with cipro for 5 days until culture results available. she has had no fevers and has been hemodynamically stable. She has been alert oriented, pleasant and cooperative. She will be transported by ground EMS to [facility] for voluntary inpatient psychiatric treatment. Home Meds and New Rx's Prescriptions: New ciprofloxacin HCl 500 mg Tablet 500 mg PO BID Qty: 8 RF: 0 Continued (DME) blood-glucose meter [OneTouch Ultra2 Meter] kit See Dose Instructions .ROUTE .MEDSUPPLY Qty: 1 RF: 0 donepezil 10 mg tablet 10 mg PO DAILY Qty: 30 RF: 11 metformin 1,000 mg tablet 1,000 mg PO BID Qty: 180 RF: 4 prochlorperazine maleate [Compazine] 10 mg tablet 10 mg PO BID PRN (Reason: nausea and vomiting) Qty: 20 RF: 0 (DME) lancets [Prodigy Lancets] 1 EACH misc 1 ea Miscellaneous BID Qty: 100 RF: 6 (DME) lancets [OneTouch Delica Lancets] 1 EACH misc 1 ea Miscellaneous BID Qty: 100 RF: 4 (DME) OneTouch Ultra Test strip 1 ea Miscellaneous BID Qty: 100 RF: 4 simvastatin [Zocor] 40 mg tablet 40 mg PO DAILY Qty: 90 RF: 4 paroxetine HCl [Paxil] 20 mg tablet 20 mg PO DAILY Qty: 90 RF: 4 lorazepam 0.5 mg tablet 0.5 mg PO BID PRN (Reason: anxiety) Qty: 10 RF: 0 albuterol sulfate [Ventolin HFA] 90 mcg/actuation HFA aerosol inhaler 2 puff Inhalation Q4H PRN PRN (Reason: shortness of breath or wheezing) Qty: 1 RF: 3 ondansetron 4 mg tablet,disintegrating 4 mg PO Q6H PRN (Reason: nausea and vomiting) Qty: 10 RF: 0 sertraline 50 mg tablet 50 mg PO DAILY Qty: 90 RF: 3 pantoprazole [Protonix] 20 mg tablet,delayed release (DR/EC) 20 mg PO DAILY Qty: 14 RF: 0 magnesium oxide 400 mg (241.3 mg magnesium) tablet 400 mg PO BID Qty: 60 RF: 0 acetaminophen [Tylenol] 325 mg Tablet 650 mg PO Q6H PRN PRNQty: 0 RF: 0 Discharge Instructions Instructions: Suicide Prevention for Older Adults (DC), Anxiety (ED) Activity:: Activity as Tolerated Equipment/Supplies:: No Equipment Needed Diet:: As Tolerated Discharge Orders Discharge Orders: Discharge Order (Routine); Ordered 10/08/19 Ordered By: Reva Booth Discharge Data Discharge Physician: Camila Singh DS: Summary Status at Discharge Functional status at discharge: independent ambulation Overall status at discharge: patient is progressing back to baseline Mental Status: mental status grossly normal and other (suicidal) Speech and Movement: speech and movement normal Mood: congruent mood and other (suicidal) Affect: normal affect and sad Exam Psych Mental Status: mental status grossly normal and other (suicidal) Speech and Movement: speech and movement normal Mood: congruent mood and other (suicidal) Affect: normal affect and sad DS: Data Vitals/I&O Vitals and I&O: Vital Signs Temperature 36.3 C L 10/08/19 07:44 Temperature Source Tympanic 10/08/19 07:44 Pulse 64 10/08/19 07:44 Pulse Rhythm Regular 10/08/19 07:55 Respiratory Rate 17 10/08/19 07:44 Respiratory Effort 10/08/19 07:55 Respiratory Depth Shallow 10/08/19 07:55 Respiratory Pattern Normal 10/08/19 07:55 Blood Pressure 122/68 10/08/19 07:44 Blood Pressure Mean 79 10/07/19 14:03 Pulse Oximetry 95 10/08/19 07:44 Oxygen Delivery Method Room Air 10/08/19 07:44 Oxygen Flow Rate 0 10/08/19 07:44 Pain Level 0 10/08/19 07:55 Comment 10/07/19 15:46 Intake & Output 10/07/19 10/08/19 10/08/19 23:59 11:59 23:59 Intake Total 275 / 275 Output Total 725 / 725 Balance -450 / -450 Weight 91.626 kg 85.7 kg Intake: Oral 275 / 275 Output: Urine 725 / 725 Other: Urine Color Yellow Yellow Urine Appearance Clear Urine Odor None None Stool Size Large Stool Characteristics Liquid Soft Brown Voiding Methods Toilet Toilet Data Completed and Pending Labs on day of discharge: Labs from last 24 hours 10/08/19 10/08/19 10/07/19 06:40 06:40 20:00 WBC RBC Hgb Hct MCV MCH MCHC RDW Plt Count 252 MPV Immature Gran % Neutrophils % Lymphocytes % Monocytes % Eosinophils % Basophils % Absolute Neutrophils Absolute Lymphocytes Absolute Monocytes Absolute Eosinophils Absolute Basophils Sodium 142 Potassium 3.7 Chloride 105 Carbon Dioxide 28.8 Anion Gap 8.2 BUN 9 Creatinine 0.77 Estimated GFR/1.73 m2 >= 60.00 Glucose 173 H Calcium 8.4 L Magnesium 1.8 Total Bilirubin AST ALT Alkaline Phosphatase Total Protein Albumin TSH Urine Color Urine Clarity Urine pH Ur Specific [place] Urine Protein Urine Ketones Urine Blood Urine Nitrite Urine Bilirubin Urine Urobilinogen Ur Leukocyte Esterase Urine RBC Urine WBC Ur Epithelial Cells Urine Crystals Urine Bacteria Urine Casts Urine Mucus Urine Other Ur Culture Indicated? Urine Glucose Salicylates Urine Opiates Screen Negative Urine Methadone Screen Negative Acetaminophen Ur Barbiturates Screen Negative Ur Tricyclics Screen Negative Ur Amphetamines Screen Negative U Benzodiazepines Scrn Negative Urine Cocaine Screen Negative Ur THC Screen Negative Ethyl Alcohol 10/07/19 10/07/19 10/07/19 20:00 18:53 18:53 WBC 12.23 H RBC 4.18 Hgb 11.7 L Hct 36.8 MCV 88.0 MCH 28.0 MCHC 31.8 L RDW 14.1 Plt Count 254 MPV 8.9 Immature Gran % 0.2 Neutrophils % 64.7 Lymphocytes % 27.4 Monocytes % 5.9 Eosinophils % 1.6 Basophils % 0.2 Absolute Neutrophils 7.91 H Absolute Lymphocytes 3.35 Absolute Monocytes 0.72 H Absolute Eosinophils 0.20 Absolute Basophils 0.02 Sodium Potassium Chloride Carbon Dioxide Anion Gap BUN Creatinine Estimated GFR/1.73 m2 Glucose Calcium Magnesium Total Bilirubin AST ALT Alkaline Phosphatase Total Protein Albumin TSH Urine Color Yellow Urine Clarity Clear Urine pH 7.0 Ur Specific [place] 1.010 Urine Protein Negative Urine Ketones Negative Urine Blood Trace-intact H Urine Nitrite Negative Urine Bilirubin Negative Urine Urobilinogen 0.2 Ur Leukocyte Esterase Moderate H Urine RBC Not Applicable Urine WBC >50 Ur Epithelial Cells Moderate Urine Crystals Negative Urine Bacteria Many Urine Casts Negative Urine Mucus Negative Urine Other Many transitional Ur Culture Indicated? No/sq. contamination Urine Glucose Negative Salicylates < 2.8 L Urine Opiates Screen Urine Methadone Screen Acetaminophen < 2 L Ur Barbiturates Screen Ur Tricyclics Screen Ur Amphetamines Screen U Benzodiazepines Scrn Urine Cocaine Screen Ur THC Screen Ethyl Alcohol 10/07/19 18:53 WBC RBC Hgb Hct MCV MCH MCHC RDW Plt Count MPV Immature Gran % Neutrophils % Lymphocytes % Monocytes % Eosinophils % Basophils % Absolute Neutrophils Absolute Lymphocytes Absolute Monocytes Absolute Eosinophils Absolute Basophils Sodium 139 Potassium 3.1 L Chloride 101 Carbon Dioxide 31.2 Anion Gap 6.8 BUN 10 Creatinine 0.80 Estimated GFR/1.73 m2 >= 60.00 Glucose 170 H Calcium 8.4 L Magnesium Total Bilirubin 0.4 AST 11 L ALT 16 Alkaline Phosphatase 59 Total Protein 6.5 Albumin 3.3 L TSH 3.30 Urine Color Urine Clarity Urine pH Ur Specific [place] Urine Protein Urine Ketones Urine Blood Urine Nitrite Urine Bilirubin Urine Urobilinogen Ur Leukocyte Esterase Urine RBC Urine WBC Ur Epithelial Cells Urine Crystals Urine Bacteria Urine Casts Urine Mucus Urine Other Ur Culture Indicated? Urine Glucose Salicylates Urine Opiates Screen Urine Methadone Screen Acetaminophen Ur Barbiturates Screen Ur Tricyclics Screen Ur Amphetamines Screen U Benzodiazepines Scrn Urine Cocaine Screen Ur THC Screen Ethyl Alcohol < 3.0 10/08/19 02:10 Urine - Voided Urine Culture - Pending Preliminary micro results at discharge 10/08/19 02:10 Urine Culture - Pending Urine - Voided [facility] Medical History (Updated 10/07/19 @ 22:08 by Braxton Gilman) Anxiety (Chronic) Depression (Inactive) Diabetes mellitus (Inactive) Times 3 years. History of CVA (cerebrovascular accident) (Inactive 12/02/91) a. 1991. History of DVT (deep vein thrombosis) (Inactive) a. History of right DVT and PE. b. IVC filter placed 40 years ago. Iatrogenic pulmonary embolism and infarction (Resolved) IVC clip-1974 Inappropriate behavior (Acute) Mild cognitive impairment with memory loss (Chronic) Osteoarthrosis (Inactive) both hips, right greater than left Osteopenia (Inactive) Palliative care patient (Chronic) Panic attack (Inactive) Rupture of tendon of biceps, long head (Resolved 10/31/07) Surgical History History of bilateral salpingo-oophorectomy (Inactive) History of Surgical Procedure (Inactive) a. Cholecystectomy. b. Lysis of adhesions. c. Hysterectomy. d. Oophorectomy. Status post abdominal hysterectomy (Inactive) Status post breast biopsy (Inactive) Status post cholecystectomy (Inactive) Family History Son , age 52 Sudden cardiac arrest Father , killed by Nazis in front of her when she was 10 yo Murder Social History Smoking/Tobacco Use Status: Former Tobacco Use Tobacco: How many years used: 1 Second Hand Exposure: Yes Alcohol Intake: never Drug use: Never Substance use type: does not use Caregiver/Support person: No Household members: none Housing: apartment Number of Children: 1 number of grandchildren: 1 Communication Needs: Corrective Lenses Education Level: middle school Do you need help understanding health information?: Always 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 Pets and animals: No What is your relationship status?: How often do you talk on the phone with friends or family?: never How often do you get together with friends or relatives?: three or more times per week How often do you attend judaism or roman catholic services?: 4 or more times per year Panel score (0-1 are the most socially isolated patients): 2 What type of physical activity do you participate in: walking Duration: < 15 minutes/day Frequency: 1-2 times per week Marielle/Christianity: Yazdanism Special marielle needs: No Seatbelt use: always Water heater temp set <120 deg: Yes Working smoke detector in home: Yes Fire extinguisher in home: Yes Do you feel safe at home: No (unsure why) Do you feel safe in your relationship?: Yes Additional Social history: in 1998. Lives in [place]. Moved in 2012. Has one granddaughter, only living relative. Lives in [place]. Social. Often sits on porch of [place] and greets people.
--- NOTE | 2019-10-08 13:42 | CMDISCH_ITS ---
- If Service Date Differs Date of service: 10/08/19 Time of Service: 13:43 LACE Index Scoring Tool - Questions: Length of Stay (in days): 2 Acuity (Admit via E.D.?): Yes Comorbidities: Diabetes w/o Complication, Dementia E.D. Visits: 15 - Answers: Total Score: 14 Risk of Readmission: High Risk Care Management Discharge Reason for Hospitalization: Suicidal Ideation Discharge Plan: Alyssa will be transferred to [facility] at [facility] for psychiatric stabilization. CM coordinated transportation via [facility]. Alyssa reports she is agreeable to treatment. Patient/Family Education Needs: Review discharge instructions with Alyssa, discussion of self care needs including Ask Me Three Services Needed at Discharge: Psychiatric Facility ([facility], [facility]), Transportation
== END 2019-10-08 13:53 | disposition short-term general hospital (02) ==
LOC: ER 22:27 → MS 23:17
PROVIDERS: Admitting Provider Internal Medicine; Emergency Provider Physician Assistant; PCP Family Medicine; Visit Provider Internal Medicine
DX: F41.8 Other specified anxiety disorders (principal); R45.851 Suicidal ideations; N39.0 Urinary tract infection, site not specified; E83.42 Hypomagnesemia; E87.6 Hypokalemia; R09.89 Other specified symptoms and signs involving the circulatory and respiratory systems; R06.02 Shortness of breath; E11.9 Type 2 diabetes mellitus without complications; Z79.84 Long term (current) use of oral hypoglycemic drugs; F03.90 Unspecified dementia, unspecified severity, without behavioral disturbance, psychotic disturbance, mood disturbance, and anxiety; I10 Essential (primary) hypertension
CPT/HCPCS: 36415; 36416; 80048; 80053; 80307; 82962; 93005; 99217; 99222; 99285; J1650; 80320; 80329; 81003; 81015; 83735; 84443; 85025; 85049; 87086; 93010; 99219; 99284; G0378

== ENCOUNTER 2019-11-03 19:11 | Emergency (ER) | payer MEDICARE, SELFPAY ==
[2019-11-03 19:11] VITALS: BP 154/62; PULSE 72; RESP 16; TEMP 36.2; O2SAT 96
[2019-11-03 19:22] VITALS: RESP 16
--- NOTE | 2019-11-03 19:49 | W.ED.GENAD ---
Discharge Plan Disposition Patient Disposition: OTHER Condition: Stable Discharge Details Chief Complaint: Anxiety Clinical Impression: Anxiety Primary Care Provider: Larry Moulton ED Provider: Karan Ferrell Home Meds and New Rx's Prescriptions: No Action (DME) blood-glucose meter [OneTouch Ultra2 Meter] kit See Dose Instructions .ROUTE .MEDSUPPLY Qty: 1 RF: 0 donepezil 10 mg tablet 10 mg PO DAILY Qty: 30 RF: 11 prochlorperazine maleate [Compazine] 10 mg tablet 10 mg PO BID PRN (Reason: nausea and vomiting) Qty: 20 RF: 0 (DME) lancets [Prodigy Lancets] 1 EACH misc 1 ea Miscellaneous BID Qty: 100 RF: 6 (DME) lancets [OneTouch Delica Lancets] 1 EACH misc 1 ea Miscellaneous BID Qty: 100 RF: 4 (DME) OneTouch Ultra Test strip 1 ea Miscellaneous BID Qty: 100 RF: 4 simvastatin [Zocor] 40 mg tablet 40 mg PO DAILY Qty: 90 RF: 4 lorazepam 0.5 mg tablet 0.5 mg PO BID PRN (Reason: anxiety) Qty: 10 RF: 0 albuterol sulfate [Ventolin HFA] 90 mcg/actuation HFA aerosol inhaler 2 puff Inhalation Q4H PRN PRN (Reason: shortness of breath or wheezing) Qty: 1 RF: 3 ondansetron 4 mg tablet,disintegrating 4 mg PO Q6H PRN (Reason: nausea and vomiting) Qty: 10 RF: 0 metformin 1,000 mg tablet 1,000 mg PO BID Qty: 180 RF: 4 magnesium oxide 400 mg (241.3 mg magnesium) tablet 400 mg PO BID Qty: 60 RF: 0 melatonin 3 mg Tablet 3 mg PO HS RF: 0 mirtazapine 15 mg Tablet 15 mg PO HS RF: 0 Lactobacillus acidophilus Capsule 1 cap PO TID RF: 0 prazosin 2 mg Capsule 2 mg PO HS RF: 0 Lantus Solostar U-100 Insulin 100 unit/mL (3 mL) Insulin Pen 14 unit SUBCUT HS RF: 0 psyllium husk (aspartame) 3.5 gram Powder In Packet 1 packet PO QDAY RF: 0 pantoprazole [Protonix] 20 mg tablet,delayed release (DR/EC) 40 mg PO DAILY RF: 0 sertraline 50 mg tablet 75 mg PO DAILY RF: 0 acetaminophen [Tylenol] 325 mg Tablet 650 mg PO Q6H PRN PRNQty: 0 RF: 0 Discharge Data Discharge Date/Time-TO BE ENTERED AT DEPARTURE: 11/04/19 13:05 Medical Decision Making <SERENE Cleaning - Last Filed: 11/04/19 23:45> Patient is a 84-year-old female presenting today with chief complaint of anxiety. Patient discharged yesterday for [facility] where she was seeking care for suicidal ideation and anxiety. Has been doing well until home alone which is patient's typical exacerbating situation. Symptoms are exertional at night. Patient does have a instructed on file patient is a DNR but not DNI. She reports recurrence of her baseline symptoms from previous episodes with concern for both orthopedic safety at home secondary to the severity of anxiety. Again expresses thoughts of self-harm and she is to be left alone at home. She does seem excited about the idea of going back to [facility] once again tomorrow. She is also endorsing bilateral lower extremity pain. Has chronic lower extremity edema. She is not on a diuretic. Typically, elevation does help greatly with her discomfort. Reports that she had had her legs dependent for period of time this is likely was causing the discomfort. On exam, patient is resting comfortably. She is pleasant and appropriate. She is not actively suicidal and does not seem to be an imminent threat to herself or others. She had seen questions appropriately. She does have mild lower extremity edema, no posterior calf pain, 2+ distal pulses. Swelling is equal bilaterally. Plan to elevate extremities. Patient is planning for admission tomorrow at [facility], given improvement over the evening. She will be given her nighttime medications and kept comfortable. At the end of my shift, care was transitioned to Dr. Dwyer with final disposition pending. Plan is for patient to be transferred to [facility] at their initial request for around 8 AM tomorrow. <Grayson Mccurdy MD - Last Filed: 11/04/19 19:54> Patient kept overnight with plan to transfer back to [facility] this morning. There were no issues overnight. Morning medications are written for. Patient will be signed out to [facility] day physician. <Karan Ferrell MD - Last Filed: 11/04/19 12:45> pt has remained stable and [facility] has accepted her in transfer. 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 Date/Time Provider Initiated Documentation: 11/03/19 19:49. Limitations to Documentation: no limitations. Information obtained by: patient, EMS and RN notes reviewed. HPI Narrative: Patient is a 84-year-old female with history of mild cognitive impairment, anxiety, depression, arthritis, diabetes presenting today with chief complaint of anxiety exacerbation. Patient was discharged yesterday from [facility] where she was being treated for her anxiety. Secondary to her anxiety, patient has been here historically she had expressed thoughts of suicidal ideation. These symptoms are new over recent years and is progressively worsening. When she is feeling anxious, flat unusual for her to have physical manifestations. She reports eating very little, she remains home. She consulted [facility] called EMS. Jostle present did cause any falls like we will have loaded the patient back in the morning. [facility] will accept the patient until 8 AM. Patient did have medication changes well she was admitted, patient was taken off her paroxetine and lorazepam. Sertraline was increased. Mirtazapine was also added which have been shown to help with some of evening anxiety and it difficult for sleep. Prazosin was also added at night. Did not express anxiety depression suicidal ideation at the time of discharge. Related Data Home Medications Medication Instructions Recorded Confirmed lancets [Prodigy Lancets] #100 ea 08/17/15 10/07/19 lancets [OneTouch Delica Lancets] #100 ea 03/22/16 10/07/19 blood-glucose meter #1 each 01/22/19 10/07/19 blood sugar diagnostic #100 strip 03/04/19 10/07/19 simvastatin 40 mg tablet 40 mg PO DAILY #90 tab 05/05/19 11/03/19 acetaminophen [Tylenol] 650 mg PO Q6H PRN PRN #0 tab 08/26/19 11/03/19 lorazepam 0.5 mg tablet 0.5 mg PO BID PRN #10 tab 09/11/19 11/03/19 donepezil 10 mg tablet 10 mg PO DAILY #30 tab 09/17/19 11/03/19 albuterol sulfate 90 mcg/actuation 2 puff INHALATION Q4H PRN PRN #1 09/22/19 11/03/19 aerosol inhaler inh ondansetron 4 mg disintegrating 4 mg PO Q6H PRN #10 tab 09/24/19 11/03/19 tablet prochlorperazine maleate 10 mg 10 mg PO BID PRN #20 tab 09/29/19 11/03/19 tablet magnesium oxide 400 mg PO BID #60 tab 10/01/19 11/03/19 metformin 1,000 mg tablet 1,000 mg PO BID #180 tab-cap 11/02/19 11/03/19 Lactobacillus acidophilus 1 cap PO TID 11/03/19 11/03/19 insulin glargine [Lantus Solostar 14 unit SUBCUT HS 11/03/19 11/03/19 U-100 Insulin] melatonin 3 mg PO HS 11/03/19 11/03/19 mirtazapine 15 mg PO HS 11/03/19 11/03/19 pantoprazole [Protonix] 40 mg PO DAILY 11/03/19 11/03/19 prazosin 2 mg PO HS 11/03/19 11/03/19 psyllium husk (aspartame) 1 packet PO QDAY 11/03/19 11/03/19 sertraline 75 mg PO DAILY 11/03/19 11/03/19 Previous Rx's Medication Instructions Recorded blood-glucose meter #1 each 01/22/19 blood sugar diagnostic #100 strip 03/04/19 simvastatin 40 mg tablet 40 mg PO DAILY #90 tab 05/05/19 acetaminophen [Tylenol] 650 mg PO Q6H PRN PRN #0 tab 08/26/19 lorazepam 0.5 mg tablet 0.5 mg PO BID PRN #10 tab 09/11/19 donepezil 10 mg tablet 10 mg PO DAILY #30 tab 09/17/19 albuterol sulfate 90 mcg/actuation 2 puff INHALATION Q4H PRN PRN #1 09/22/19 aerosol inhaler inh ondansetron 4 mg disintegrating 4 mg PO Q6H PRN #10 tab 09/24/19 tablet prochlorperazine maleate 10 mg 10 mg PO BID PRN #20 tab 09/29/19 tablet magnesium oxide 400 mg PO BID #60 tab 10/01/19 metformin 1,000 mg tablet 1,000 mg PO BID #180 tab-cap 11/02/19 Allergies Allergy/AdvReac Type Severity Reaction Status Date / Time iodine Allergy Unknown Unverified 11/03/19 19:22 General Stated Complaint: Anxiety RASHEL: 3 Review of Systems <SERENE Cleaning - Last Filed: 11/04/19 23:45> Constitutional Constitutional: Reports as per HPI, Denies chills, Denies fatigue, Denies fever(s), Denies headache(s) and Denies weakness Eyes Eyes: Denies change in vision ENT Ears, Nose, Mouth, and Throat: Denies headache(s) Cardiovascular Cardiovascular: Reports as per HPI, Denies chest pain, Denies lightheadedness, Denies dyspnea and Denies dyspnea on exertion Respiratory Respiratory: Reports as per HPI, Denies cough, Denies dyspnea and Denies dyspnea on exertion Gastrointestinal Gastrointestinal: Reports as per HPI, Denies abdominal pain, Denies change in bowel habits, Denies nausea and Denies vomiting Musculoskeletal Musculoskeletal: Denies abnormal gait Integumentary/Breasts Skin/Breast: Reports as per HPI and Denies rash Neurologic Neurologic: Denies abnormal movements, Denies abnormal speech, Denies abnormal gait, Denies headache(s), Denies paresthesias and Denies weakness Endocrine Endocrine: Denies fatigue PFSH <SERENE Cleaning - Last Filed: 11/04/19 23:45> Medical History Anxiety (Chronic) Depression (Inactive) Diabetes mellitus (Inactive) Times 3 years. History of CVA (cerebrovascular accident) (Inactive 12/02/91) a. 1991. History of DVT (deep vein thrombosis) (Inactive) a. History of right DVT and PE. b. IVC filter placed 40 years ago. Iatrogenic pulmonary embolism and infarction (Resolved) IVC clip-1974 Inappropriate behavior (Acute) Mild cognitive impairment with memory loss (Chronic) Osteoarthrosis (Inactive) both hips, right greater than left Osteopenia (Inactive) Palliative care patient (Chronic) Panic attack (Inactive) Rupture of tendon of biceps, long head (Resolved 10/31/07) Surgical History History of bilateral salpingo-oophorectomy (Inactive) History of Surgical Procedure (Inactive) a. Cholecystectomy. b. Lysis of adhesions. c. Hysterectomy. d. Oophorectomy. 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 Pets and animals: No What is your relationship status?: How often do you talk on the phone with friends or family?: never How often do you get together with friends or relatives?: three or more times per week How often do you attend congregation or zoroastrian services?: 4 or more times per year Panel score (0-1 are the most socially isolated patients): 2 What type of physical activity do you participate in: walking Duration: < 15 minutes/day Frequency: 1-2 times per week Marielle/Moravian: Rastafarian Special marielle needs: No Seatbelt use: always Water heater temp set <120 deg: Yes Working smoke detector in home: Yes Fire extinguisher in home: Yes Do you feel safe at home: No (unsure why) Do you feel safe in your relationship?: Yes Additional Social history: in 1998. Lives in [place]. Moved in 2012. Has one granddaughter, only living relative. [place]. Often sits on porch of [place] and greets people. Exam <SERENE Cleaning - Last Filed: 11/04/19 23:45> Const General: cooperative, healthy appearing, comfortable, no acute distress, well developed and well groomed Nutritional Appearance: average body habitus and well nourished Orientation: alert and awake Eyes General: appearance normal, both eyes and all related structures Resp Effort & Inspection: normal respiratory effort, able to speak in complete sentences and no respiratory distress Auscultation: clear to auscultation bilaterally, no rales, no rhonchi and no wheezes Cardio Rate: regular rate Rhythm: regular rhythm Heart Sounds: S1 normal and S2 normal Skin General skin exam: no rashes or lesions noted Trauma: no lacerations or abrasions Neuro General: alert and awake Cognition: normal cognition Speech: speech normal Gait: normal gait Course <SERENE Cleaning - Last Filed: 11/04/19 23:45> Vital Signs Vital signs: Vital Signs Temperature 36.2 C L 11/03/19 19:11 Pulse 72 11/03/19 19:11 Respiratory Rate 16 11/03/19 19:11 Blood Pressure 154/62 H 11/03/19 19:11 Pulse Oximetry 96 11/03/19 19:11 Temperature 36.2 C L 11/03/19 19:11 Temperature Source Skin 11/03/19 19:11 Pulse 72 11/03/19 19:11 Respiratory Rate 16 11/03/19 19:22 Respiratory Effort Non-Labored 11/03/19 19:24 Respiratory Depth Normal 11/03/19 19:22 Respiratory Pattern Normal 11/03/19 19:22 Blood Pressure 154/62 H 11/03/19 19:11 Blood Pressure Position Sitting 11/03/19 19:11 Pulse Oximetry 96 11/03/19 19:11 Oxygen Delivery Method Room Air 11/03/19 19:11 Oxygen Flow Rate 0 11/03/19 19:11 Pain Level 8 11/03/19 19:11 Sign Out <SERENE Cleaning - Last Filed: 11/04/19 23:45> Sign Out Data: Sign Out Comment: Care transitioned to Dr. Mccurdy. Patient anxious but stable and pleasant. Not actively a threat to herself, calm while here. Plan for her to return to [facility] in the AM. Last updated by Michell Dennis PA at 11/04/19 00:12 Sign Out Comment: Follow up with referral and transfer to [facility] program. Last updated by Grayson Mccurdy MD at 11/04/19 07:49
[2019-11-03] MEDS: Mirtazapine 15 MG TAB PO (22:12)
[2019-11-03] MEDS: Melatonin 3 MG TAB PO (22:12)
[2019-11-03] MEDS: metFORMIN 500 MG TAB 1000 MG PO (22:12)
[2019-11-03] MEDS: LORazepam 0.5 MG TAB PO (22:12)
[2019-11-03] MEDS: Prazosin 1 MG CAP 2 MG PO (22:13)
[2019-11-03] MEDS: Insulin Glargine 100 UNITS/ML UNIT 14 UNITS SC (22:13)
--- NOTE | 2019-11-04 07:37 | NUR.NOTE ---
Nursing Note: Patient ordered food
[2019-11-04] MEDS: metFORMIN 500 MG TAB 1000 MG PO (07:48)
[2019-11-04] MEDS: Donepezil 5 MG TAB 10 MG PO (07:54)
[2019-11-04] MEDS: Simvastatin 40 MG TAB PO (07:55)
[2019-11-04 08:02] VITALS: BP 109/46; PULSE 68; TEMP 36.8; O2SAT 92
[2019-11-04] MEDS: Pantoprazole 40 MG TABCR PO (08:15)
--- NOTE | 2019-11-04 09:25 | NUR.NOTE ---
0910--pt c/o legs aching while sitting in bed---recliner brought into room for her to try---states feels much better sitting in it with legs elevated.-Pleasant/talkative.Nursing Note:
--- NOTE | 2019-11-04 10:41 | PDOC.MHCN_ITS ---
Date of service: 11/04/19 Time of Service: 10:41 Mental Health Crisis Note Presenting Issue How did you arrive at the ED and why did you come: Alyssa arrived at the ER last night via ambulance after having a severe anxiety attack and making statements she wanted to self harm. Alyssa was kept in the ER overnight pending a possible re-admission to [facility] where she was just discharged form yesterday. Precipitating Factors Alyssa is sleeping comfortably in a recliner in her room. She wishes for the door to remain open. Alyssa initially denied SI and HI and anxiety or feelings of sadness. I inquired of her the reason for coming in last night. She said admits that she was anxious and wanted to do self harm. She reported that someone called the fire department. It is unsure who actually made the call only that it was and she was brought to [facility] for evaluation and treatment. Alyssa reports that she often has these feelings of anxiety and wanting to self harm when she is home. She enjoyed the [facility] because they kept me busy with crafts and such. Alyssa is wanting to be back at [facility] as she feels safer there. Disposition BEHAVIOR: Alyssa is cooperative and friendly. She seems confused as to the reason she was here until the reason was directly asked of her. She shows poor insight and judgment as a result. EYE CONTACT: Alyssa's eye contact is normal MOOD: Alyssa's mood appears normal but it is possible that she is without symptoms at this time because she has people around her and this eliviates her symptoms. It is highly possible that if she goes home today she will end up back in the ER with in the next day or two for the same symptoms. AFFECT: Alyssa's affect is normal through the assessment. APPETITE: Alyssa reported when I am hungry I will eat anything. SLEEP(trouble falling/staying asleep: Alyssa reported that she slept well here last nght. Plan I will seek a re-admission to [facility] for Alyssa. Provisional Diagnosis Anxiety d.o. unspecified with SI Signature Clinician's Name/Title: Malu Koch MS Emergency Services Clinician
--- NOTE | 2019-11-04 11:52 | NUR.NOTE ---
Nursing Note: 1136--Florencia Aguilera from [facility] talked with pt on phone and then to myself stating the Alyssa has been accepted into their program and that we could arrange transport. Need to call Nursing report when she is ready to leave.
[2019-11-04 12:02] VITALS: BP 118/48; TEMP 36.6; O2SAT 97
[2019-11-04 13:04] VITALS: BP 118/48; PULSE 72; RESP 16; TEMP 36.6; O2SAT 97
== END 2019-11-04 13:05 | disposition other institution (70) ==
PROVIDERS: Emergency Provider Emergency Medicine; PCP Family Medicine
DX: F41.9 Anxiety disorder, unspecified (principal); R60.0 Localized edema; E11.9 Type 2 diabetes mellitus without complications; Z79.4 Long term (current) use of insulin
CPT/HCPCS: 36416; 82962; 96372; 99285; 99283; J1815

== ENCOUNTER 2020-02-03 07:34 | Inpatient (IN) | payer MEDICARE, MEDICAID, SELFPAY ==
[2020-02-03] VITALS (74 sets, daily range): BP systolic 98–147; BP diastolic 44–81; PULSE 79–102; RESP 11–36; TEMP 36.6–36.9; O2SAT 94–100
--- NOTE | 2020-02-03 08:07 | ED.GENADUL_ITS ---
Discharge Plan Disposition Patient Disposition: [facility] INPATIENT Condition: Stable Discharge Details Chief Complaint: Dizzy/Sync Clinical Impression: Dizziness, Hypomagnesemia, Acute hypokalemia Primary Care Provider: Larry Moulton ED Provider: Alberto Weeks Home Meds and New Rx's Prescriptions: No Action (DME) blood-glucose meter [OneTouch Ultra2 Meter] kit See Dose Instructions .ROUTE .MEDSUPPLY Qty: 1 RF: 0 donepezil 10 mg tablet 10 mg PO DAILY Qty: 30 RF: 11 prochlorperazine maleate [Compazine] 10 mg tablet 10 mg PO BID PRN (Reason: nausea and vomiting) Qty: 20 RF: 0 (DME) lancets [Prodigy Lancets] 1 EACH misc 1 ea Miscellaneous BID Qty: 100 RF: 6 (DME) lancets [OneTouch Delica Lancets] 1 EACH misc 1 ea Miscellaneous BID Qty: 100 RF: 4 (DME) OneTouch Ultra Test strip 1 ea Miscellaneous BID Qty: 100 RF: 4 simvastatin [Zocor] 40 mg tablet 40 mg PO DAILY Qty: 90 RF: 4 lorazepam 0.5 mg tablet 0.5 mg PO BID PRN (Reason: anxiety) Qty: 10 RF: 0 albuterol sulfate [Ventolin HFA] 90 mcg/actuation HFA aerosol inhaler 2 puff Inhalation Q4H PRN PRN (Reason: shortness of breath or wheezing) Qty: 1 RF: 3 ondansetron 4 mg tablet,disintegrating 4 mg PO Q6H PRN (Reason: nausea and vomiting) Qty: 10 RF: 0 metformin 1,000 mg tablet 1,000 mg PO BID Qty: 180 RF: 4 melatonin 3 mg tablet 3 mg PO HS Qty: 90 RF: 3 mirtazapine 15 mg tablet 15 mg PO HS Qty: 90 RF: 1 prazosin 2 mg capsule 2 mg PO HS Qty: 90 RF: 3 furosemide [Lasix] 40 mg tablet 40 mg PO DAILY Qty: 30 RF: 2 (DME) Comfort EZ Pen Duarte 33 gauge x 3/16 needle See Rx Instructions .ROUTE .MEDSUPPLY Qty: 100 RF: 4 pantoprazole [Protonix] 20 mg tablet,delayed release (DR/EC) 40 mg PO DAILY Qty: 60 RF: 11 sertraline 50 mg tablet 50 mg PO DAILY RF: 0 sertraline 100 mg tablet 100 mg PO DAILY Qty: 90 RF: 4 gabapentin 100 mg capsule 100 mg PO QHS Qty: 90 RF: 4 hydroxyzine HCl 50 mg tablet 50 mg PO DAILY PRN (Reason: anxiety) Qty: 30 RF: 11 magnesium oxide 400 mg (241.3 mg magnesium) tablet 400 mg PO BID Qty: 60 RF: 0 Lactobacillus acidophilus Capsule 1 cap PO TID RF: 0 psyllium husk (aspartame) 3.5 gram Powder In Packet 1 packet PO QDAY RF: 0 acetaminophen [Tylenol] 325 mg Tablet 650 mg PO Q6H PRN PRNQty: 0 RF: 0 Lantus Solostar U-100 Insulin 100 unit/mL (3 mL) insulin pen See Rx Instructions .ROUTE .COMPLEX RF: 0 Medical Decision Making This is a 84-year-old female with history of diabetes, hypertension, depression, CVA, panic attacks. She presents today for evaluation of dizziness. The patient states that roughly an hour to an hour and a half prior to arrival she had woken up, was walking around and while walking she suddenly felt very dizzy lightheaded and felt like she was in a different world. She lied down into the couch that she was next to. She did not fall or hit her head. She recalls the entire event. She denies any headache, chest pain, fever, chills. She denies any focal weakness. She denies any trauma to her head. She denies any other complaints at this time. She denies any focal numbness tingling or weakness. She does admit to chronic stiffness and weakness in her left lower extremity though. She denies any room spinning sensation. She states that when she does sit up quickly she gets extremely lightheaded. Few weeks ago she did have a slight increase in her Lasix dosing, but she denies any changes or increases since then otherwise. No recent antibiotics. Physical exam demonstrates notably dry mucous membranes, horizontal unidirectional left-sided nystagmus, head impulse test significantly worsens her symptomatology. She is intolerant of complete movement. She does have some chronic stiffness of the left lower extremity, as well as some slight weakness which she states is chronic and not acute. The remainder of exam is otherwise unremarkable. No other focal neurologic deficits. Signs and symptoms at this time I do a broad differential. EKG shows no evidence of STEMI. Nonspecific T wave depressions in V4 V5, however these appear consistent with prior EKGs. With dry mucous membranes anterior transient increase in Lasix she may be suffering from dehydration or electrolyte abnormality, however she does have mild pitting edema of her lower extremities. Differential also does include stroke versus cerebellar infarct versus labyrinthitis or M?ni?re's. CT scan is unavailable at this time, with the acute onset of her symptoms I do feel she would benefit from MRI. Order MRI for stroke work-up. 10 AM The patient's laboratory work-up has returned, she does have a white count at 15.5, no bandemia. We will add UA, but she has no fever, chills, or tachycardia, I seem to doubt infection as this would not correlate with her symptoms. She has no symptoms of URI, runny nose, or cough, and symptoms are inconsistent with flu. She denies any urinary symptoms. Electrolytes demonstrate notably low potassium at 2.9, magnesium is also low at 1.6, calcium is also low at 7.9. Creatinine is notably elevated at 2.81 which is atypical for the patient. Review of her list shows no evidence of EDILIA inhibitor or arm, may be secondary to accidental overdiuresis from the short increase in Lasix that she was taking. We will gently rehydrate with 500 cc of normal saline, troponin normal. Will give magnesium and potassium orally and IV. Pending MRI results. I do feel the patient would benefit from potential admission. 10:20 AM Patient's MRI results and have returned negative for acute process, there does appear to be a bit of a mass in the posterior nasopharynx, this was evaluated again on exam, small lobulated mass, no signs of airway obstruction. No bleeding or other abnormality. MRI per radiology shows no evidence of stroke, infarct, or intracranial mass. We will contact the hospitalist for admission. Patient still does not feel much better after meclizine. Suspect her symptoms are likely from mild dehydration in conjunction with her electrolyte abn ormalities. I again asked her about her diuretics and she states that her home nurses organize all of her medications but she denies taking any increase in diuretics for an extended period of time. 10:44 AM I did discuss the case with Dr. Pierre the hospitalist, at this time she would like to hold off on admission, and requires bilateral lower extremity ultrasounds, influenza testing, chest x-ray, and completion of UA prior to any any admission. I did ask if we could place admission orders and the time being as I do not think that this will significantly change her disposition especially in relation to an unchanged EKG, negative troponin, however she would like to hold off on admission until this component of the additional work-up is completed. We will order the test as requested. 1:04 PM Chest x-ray is read as negative per radiology, influenza testing is negative. No evidence of lower extremity DVT per ultrasound. Urinalysis is nitrite negative, leuk esterase negative. D-dimer has returned elevated at 5140. I do not feel that the patient is appropriate for CTA at this time secondary to acute kidney injury. With no tachycardia, shortness of breath, pleuritic chest pain, and having a well score of 1.5 points, feel that we can consider heparinization, but I would like to hold off now until further discussion with the hospitalist. We will contact the hospitalist again for admission. Patient remains notably hemodynamically stable here. 2 PM Hospitalist is come and evaluated the patient has accepted the patient for admission. Patient will be admitted to [facility]. I have extensively reviewed the treatment plan with the patient. I have addressed all patient concerns at this time. I have also discussed the plan with the admitting physician and they agree with the current assessment and plan and have agreed to assume responsibility for the patient. All parties demonstrate verbal understanding and agreement with our assessment and plan at this time. EKG 8: 09 Rate 86, ND 148, QTc 476, QRS 104, sinus rhythm, minimal less than 1 mm depression in V4 and V5, inverted T wave in lead III, aVF, V1, V4 and V5. No evidence of STEMI. Prior EKG from 10/07/2019 demonstrates near identical findings. HPI General Date/Time Provider Initiated Documentation: 02/03/20 08:06 . HPI Narrative: This is a 84-year-old female with history of diabetes, hypertension, depression, CVA, panic attacks. She presents today for evaluation of dizziness. The pat ient states that roughly an hour to an hour and a half prior to arrival she had woken up, was walking around and while walking she suddenly felt very dizzy lightheaded and felt like she was in a different world. She lied down into the couch that she was next to. She did not fall or hit her head. She recalls the entire event. She denies any headache, chest pain, fever, chills. She denies any focal weakness. She denies any trauma to her head. She denies any other complaints at this time. She denies any focal numbness tingling or weakness. She does admit to chronic stiffness and weakness in her left lower extremity though. She denies any room spinning sensation. She states that when she does sit up quickly she gets extremely lightheaded. Few weeks ago she did have a slight increase in her Lasix dosing, but she denies any changes or increases since then otherwise. No recent antibiotics. Related Data Home Medications Medication Instructions Recorded Confirmed lancets [Prodigy Lancets] #100 ea 08/17/15 02/03/20 lancets [OneTouch Delica Lancets] #100 ea 03/22/16 02/03/20 blood-glucose meter #1 each 01/22/19 02/03/20 blood sugar diagnostic #100 strip 03/04/19 02/03/20 simvastatin 40 mg tablet 40 mg PO DAILY #90 tab 05/05/19 02/03/20 acetaminophen [Tylenol] 650 mg PO Q6H PRN PRN #0 tab 08/26/19 02/03/20 lorazepam 0.5 mg tablet 0.5 mg PO BID PRN #10 tab 09/11/19 02/03/20 donepezil 10 mg tablet 10 mg PO DAILY #30 tab 09/17/19 02/03/20 albuterol sulfate 90 mcg/actuation 2 puff INHALATION Q4H PRN PRN #1 09/22/19 02/03/20 aerosol inhaler inh ondansetron 4 mg disintegrating 4 mg PO Q6H PRN #10 tab 09/24/19 02/03/20 tablet prochlorperazine maleate 10 mg 10 mg PO BID PRN #20 tab 09/29/19 02/03/20 tablet magnesium oxide 400 mg PO BID #60 tab 10/01/19 02/03/20 metformin 1,000 mg tablet 1,000 mg PO BID #180 tab-cap 11/02/19 02/03/20 Lactobacillus acidophilus 1 cap PO TID 11/03/19 02/03/20 psyllium husk (aspartame) 1 packet PO QDAY 11/03/19 02/03/20 furosemide 40 mg tablet 40 mg PO DAILY #30 tab 01/08/20 02/03/20 melatonin 3 mg tablet 3 mg PO HS #90 tab 01/08/20 02/03/20 mirtazapine 15 mg tablet 15 mg PO HS #90 tab 01/08/20 02/03/20 prazosin 2 mg capsule 2 mg PO HS #90 cap 01/08/20 02/03/20 pen needle, diabetic 33 gauge x #100 each 01/11/20 02/03/2002/14 gabapentin 100 mg capsule 100 mg PO QHS #90 cap 01/22/20 02/03/20 hydroxyzine HCl 50 mg tablet 50 mg PO DAILY PRN #30 tab 01/22/20 02/03/20 pantoprazole 20 mg tablet,delayed 40 mg PO DAILY #60 tab 01/22/20 02/03/20 release sertraline 100 mg tablet 100 mg PO DAILY #90 tab 01/22/20 02/03/20 sertraline 50 mg tablet 50 mg PO DAILY tab 01/22/20 02/03/20 insulin glargine [Lantus Solostar See Rx Instructions .ROUTE .COMPLEX 02/03/20 02/03/20 U-100 Insulin] Previous Rx's Medication Instructions Recorded blood-glucose meter #1 each 01/22/19 blood sugar diagnostic #100 strip 03/04/19 simvastatin 40 mg tablet 40 mg PO DAILY #90 tab 05/05/19 acetaminophen [Tylenol] 650 mg PO Q6H PRN PRN #0 tab 08/26/19 lorazepam 0.5 mg tablet 0.5 mg PO BID PRN #10 tab 09/11/19 donepezil 10 mg tablet 10 mg PO DAILY #30 tab 09/17/19 albuterol sulfate 90 mcg/actuation 2 puff INHALATION Q4H PRN PRN #1 09/22/19 aerosol inhaler inh ondansetron 4 mg disintegrating 4 mg PO Q6H PRN #10 tab 09/24/19 tablet prochlorperazine maleate 10 mg 10 mg PO BID PRN #20 tab 09/29/19 tablet magnesium oxide 400 mg PO BID #60 tab 10/01/19 metformin 1,000 mg tablet 1,000 mg PO BID #180 tab-cap 11/02/19 furosemide 40 mg tablet 40 mg PO DAILY #30 tab 01/08/20 melatonin 3 mg tablet 3 mg PO HS #90 tab 01/08/20 mirtazapine 15 mg tablet 15 mg PO HS #90 tab 01/08/20 prazosin 2 mg capsule 2 mg PO HS #90 cap 01/08/20 pen needle, diabetic 33 gauge x #100 each 01/11/2002/14 gabapentin 100 mg capsule 100 mg PO QHS #90 cap 01/22/20 hydroxyzine HCl 50 mg tablet 50 mg PO DAILY PRN #30 tab 01/22/20 pantoprazole 20 mg tablet,delayed 40 mg PO DAILY #60 tab 01/22/20 release sertraline 100 mg tablet 100 mg PO DAILY #90 tab 01/22/20 Allergies Allergy/AdvReac Type Severity Reaction Status Date / Time iodine Allergy Unknown Unverified 02/03/20 07:43 General Stated Complaint: Dizzy/Sync RASHEL: 3 Review of Systems All systems reviewed & are unremarkable except as noted in HPI and below PFSH Medical History (Updated 02/03/20 @ 14:31 by Alberto Weeks DO) Anxiety (Chronic) Depression (Acute) Diabetes mellitus (Inactive) Times 3 years. History of CVA (cerebrovascular accident) (Inactive 12/02/91) a. 1991. History of DVT (deep vein thrombosis) (Inactive) a. History of right DVT and PE. b. IVC filter placed 40 years ago. Iatrogenic pulmonary embolism and infarction (Resolved) IVC clip-1974 Inappropriate behavior (Acute) Lower extremity edema (Chronic) Mild cognitive impairment with memory loss (Chronic) Osteoarthrosis (Inactive) both hips, right greater than left Osteopenia (Inactive) Palliative care patient (Chronic) Panic attack (Inactive) Rupture of tendon of biceps, long head (Resolved 10/31/07) Surgical History History of bilateral salpingo-oophorectomy (Inactive) History of Surgical Procedure (Inactive) a. Cholecystectomy. b. Lysis of adhesions. c. Hysterectomy. d. Oophorectomy. Status post abdominal hysterectomy (Inactive) Status post breast biopsy (Inactive) Status post cholecystectomy (Inactive) Social History (Updated 01/22/20 @ 04:31 by Maame Ramirez MD) Smoking/Tobacco Use Status: Former Tobacco Use Tobacco: How many years used: 1 Second Hand Exposure: Yes Alcohol Intake: never Drug use: Never Substance use type: does not use Caregiver/Support person: No Household members: none Housing: apartment Number of Children: 1 number of grandchildren: 1 Communication Needs: Corrective Lenses Education Level: middle school Do you need help understanding health information?: Always 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 Pets and animals: No What is your relationship status?: How often do you talk on the phone with friends or family?: never How often do you get together with friends or relatives?: twice per week How often do you attend taoist or episcopalian services?: 4 or more times per year Panel score (0-1 are the most socially isolated patients): 1 What type of physical activity do you participate in: walking and irregular exercise Duration: < 15 minutes/day Frequency: 1-2 times per week Marielle/Caodaism: Congregational Special marielle needs: No Seatbelt use: always Water heater temp set <120 deg: Yes Working smoke detector in home: Yes Fire extinguisher in home: Yes Do you feel safe at home: Yes Do you feel safe in your relationship?: Yes Additional Social history: in 1998. Lives in [facility]. Moved in 2012. Has one granddaughter, only living relative; granddaughter lives in [place]. Since fall, no longer as social. Used to sit on porch of [employer] and greet people. Now staying to herself in her room. Not socializing in communal areas. Exam Narrative Exam Narrative: 1.Const: Well-nourished, Well-developed, appearing stated age 2.Eyes: PERRL, no conjunctival injection, and symmetrical lids. Questionable minimal unidirectional horizontal left-sided nystagmus 3.ENT: Atraumatic external nose and ears. Notably dry MM. Neck: Symmetric, trachea midline, No thyromegaly. 4.CVS: +S1/S2, notable known cardiac murmur. Peripheral pulses 2+ and equal in all extremities. Brisk capillary refill in all extremities. 5.RESP: Unlabored respiratory effort. Clear to auscultation bilaterally. No wheezes rales or rhonchi 6.GI: Soft, Nontender/Nondistended, No hepatosplenomegaly. No guarding or rebound. 7.MSK: Normocephalic/Atraumatic, Extremities w/o deformity or ttp No cyanosis or clubbing, Normal movement of all extremities 8.Skin: Warm, Dry. No rashes or lesions. 9.Neuro: conveyancer II-XII grossly intact. Sensation grossly intact. All 6 cardinal planes of vision are fully intact. Slightly atypical mild left- sided horizontal unilateral nystagmus. Test of skew demonstrates horizontal correction bilaterally, slight increase in blurriness on the left. Patient would not tolerate the head impulse test secondary to any movements made her symptoms notably worse. The patient demonstrated a normal [id number], good dexterity. There was no evidence of dysdiadochokinesia. Patient was unable and unwilling to ambulate secondary to which she describes as chronic stiffness left lower extremity and current fatigue and dizziness. [id number] testing was normal. Sensation was intact bilaterally as well as muscle strength bilaterally for all extremities except for minimal weakness and self-described stiffness in her left lower extremity, of her strength still remains. Patient was able to verbalize butter cup with no slurring, or miss pronunciation. 10.Psych: (AAO) x3. Appropriate mood and affect Course Vital Signs Vital signs: Vital Signs Pulse 90 02/03/20 07:29 Respiratory Rate 21 02/03/20 07:29 Blood Pressure 114/55 L 02/03/20 07:29 Pulse Oximetry 98 02/03/20 07:29 Temperature Source Skin 02/03/20 07:29 Pulse 90 02/03/20 07:29 Respiratory Rate 18 02/03/20 07:38 Respiratory Effort Non-Labored 02/03/20 07:38 Respiratory Depth Normal 02/03/20 07:38 Respiratory Pattern Normal 02/03/20 07:38 Blood Pressure 114/55 L 02/03/20 07:29 Blood Pressure Position Supine 02/03/20 07:29 Pulse Oximetry 98 02/03/20 07:29 Oxygen Delivery Method Room Air 02/03/20 07:29 Oxygen Flow Rate 0 02/03/20 07:29 Pain Level 0 02/03/20 07:29
[2020-02-03] MEDS: Meclizine 25 MG TAB PO (08:19)
[2020-02-03] MEDS: Normal Saline 500 ML IV (08:19)
[2020-02-03 09:05] LABS: Abs Immature Grans 0.04 k/cumm (0.0-0.09); Absolute Basophil Count 0.03 k/cumm (0.0-0.2); Absolute Eosinophil Count 0.06 k/cumm (0.0-0.7); Absolute Lymphocyte Count 1.85 k/cumm (1.2-3.4); Absolute Monocyte Count 0.79 k/cumm (0.11-0.7); Absolute Neutrophil Count 12.77 k/cumm (1.2-6.7); Basophils % 0.2; Eosinophils % 0.4; HCT 34.2 % (36.0-46.0); Immature Grans % 0.3 %; Lymphocytes % 11.9; Mean Corp. HGB Concentration 32.2 g/dL (32.0-36.0); Mean Corpuscular Hemoglobin 26.6 pg (27.0-33.0); Mean Corpuscular Volume 82.8 fL (80-95); Mean Platelet Volume 8.6 fL (8.0-11.0); Monocytes % 5.1; Neutrophils % 82.1; Platelet Count 315 x1000/uL (130-400); RBC 4.13 m/cumm (4.00-5.20); RBC Distribution Width 15.7 % (11.7-14.6); White Blood Cell Count 15.56 k/cumm (4.4-10.8)
[2020-02-03 09:21] LABS: ALT 13 U/L (14-59); AST 12 U/L (15-37); Albumin 3.4 g/dL (3.4-5.0); Alkaline Phosphatase 88 U/L (46-116); Anion Gap 12.6 mmol/L (3-11); BUN 30 mg/dL (7-18); Bilirubin, Total 0.9 mg/dL (0.2-1.0); CO2 30.4 mmol/L (21.0-32.0); CREATININE 2.81 mg/dL (0.55-1.02); Calcium 7.9 mg/dL (8.5-10.1); Chloride 89 mmol/L (98-107); Estimated GFR 16.11 (mL/min/1.73m2); Glucose 318 mg/dL (74-106); NT-proBNP 992 pg/mL (<300); Sodium 132 mmol/L (136-145); Total Protein 7.2 g/dL (6.4-8.2)
[2020-02-03 09:23] LABS: PTT Activated 20.4 sec (21.0-31.4); Prothrombin Time 10.2 sec (9.3-11.0)
[2020-02-03 09:24] LABS: Potassium 2.9 mmol/L (3.5-5.1); Troponin I < 0.05 ng/Ml (<0.06)
[2020-02-03] MEDS: LORazepam 2 MG/ML VIAL 0.5 MG IVP (09:38)
[2020-02-03 09:41] LABS: Magnesium 1.6 mg/dL (1.8-2.4)
--- NOTE | 2020-02-03 10:00 | DI.MRI_ITS ---
EXAM: MR BRAIN WO CLINICAL HISTORY: cerebellar stroke like symptoms. TECHNIQUE: Multiplanar multisequence MRI of the brain was performed. CONTRAST MATERIAL: IV Contrast: 0 ML of Dotarem contrast administered. COMPARISON: No exams were available for comparison FINDINGS: VENTRICLES AND EXTRA AXIAL SPACES: There is prominence of the ventricles and sulci consistent with th e patient's age. HEMORRHAGE: None. CEREBRAL PARENCHYMA: No focus of restricted diffusion to suggest acute infarct. No space-occupying le bao identified. MIDLINE SHIFT: None. BRAINSTEM/CEREBELLUM: Normal. CALVARIUM: Normal. VISUALIZED PARANASAL SINUSES/MASTOIDS: Clear. OTHER FINDINGS: Within the posterior aspect of the nasopharynx, there is a 1.9 x 1.9 cm lobulated exo phytic mass projecting into the nasopharyngeal airway. The mass shows heterogeneous intensity on the T2 weighted images and hypointensity on the T1 weighted image. The mass is midline and appears to a rise from the posterior wall. IMPRESSION: 1. No evidence of an acute infarct. 2. 1.9 x 1.9 cm lobulated mass within the nasopharynx as described above. A neoplasm cannot be exclu ded. An ENT consult is recommended for further evaluation. 3. Findings were discussed with the emergency department on the date of the examination. DATA REPOSITORY:
[2020-02-03] MEDS: Potassium Chloride 20 MEQ TABCR 40 MEQ PO (10:06)
[2020-02-03] MEDS: POTASSIUM CHLORIDE 20 MEQ/100 ML BAG 50 MEQ IVPB (10:07)
[2020-02-03] MEDS: MAGNESIUM SULFATE 2 GM/50 ML BAG IVPB (10:13)
--- NOTE | 2020-02-03 10:30 | DI.US_ITS ---
EXAM: US EXTREMITY VENOUS BI CLINICAL HISTORY: Requested by hospitalist prior to admis. r/o dvt. TECHNIQUE: Bilateral lower extremity venous ultrasound performed using grayscale, color-flow, and sp ectral Doppler analysis. COMPARISON: No exams were available for comparison FINDINGS: The bilateral common femoral, femoral and popliteal veins demonstrate normal compressibility, augment ation, and color Doppler. The posterior tibial veins are patent. The saphenofemoral junctions are unr emarkable. There is no evidence of a Henry's cyst. The soft tissues are unremarkable. IMPRESSION: Right: Negative for DVT Left: Negative for DVT DATA REPOSITORY:
[2020-02-03 10:34] LABS: Bilirubin Negative (Negative); Blood Negative (Negative); Clarity Clear (Clear); Glucose Negative (Negative); Ketones Negative (Negative); Leukocyte Esterase Negative (Negative); Nitrite Negative (Negative); Urobilinogen 0.2 EU/dL (Up TO 0.2); pH 5.5 (5-8)
[2020-02-03 10:46] LABS: Bacteria Moderate HPF (Negative); Crystals Negative HPF (Negative); Epithelial Cells Few HPF (Negative); Mucus Negative (Negative); Other Cells Few Renal (Negative); RBC 0-2 HPF (0-2)
[2020-02-03 10:47] LABS: C & S Indicated? Yes
[2020-02-03 11:18] LABS: D-Dimer 5140 ng/mlFEU (<500)
--- NOTE | 2020-02-03 12:13 | DI.RAD_ITS ---
EXAM: XR CHEST 2V PA LATERAL CLINICAL HISTORY: white count, requested by hospitalist, r/o pneumonia TECHNIQUE: 2D digital imaging was performed. COMPARISON: XR CHEST 2V PA LATERAL from 09/25/2019 FINDINGS: MEDIASTINUM: There is unchanged prominence of the right hilum. HEART: Normal. PULMONARY VASCULATURE: Stable. LUNGS: Clear. Stable scarring in the right middle lobe. PLEURAL SPACE: No pleural effusion or pneumothorax. BONE:Degenerative changes in the spine and shoulders bilaterally. OTHER FINDINGS:Normal. IMPRESSION: No acute pulmonary findings. DATA REPOSITORY: RADIATION DOSE DELIVERED:
--- NOTE | 2020-02-03 14:34 | HPE_ITS ---
Date of service: 02/03/20 Time of Service: 14:34 Assessment and Plan Assessment and plan (1) Suspected pulmonary embolism: Status: Acute Assessment and plan: Given prior h/o DVT/PE, elevated D-dimer, syncopal episode, leucocytosis. Start empiric heparin gtt. VQ scan is ordered - unfortunately not done today. Will await tomorrow. (2) Syncope: Status: Acute Assessment and plan: Possibly due to above, in addition to dehyration. Will hydrate, monitor orthostatic vital signs, keep on tele. Ruled out for ACS. (3) Dizziness: Status: Acute Assessment and plan: Multifactorial - as above in addition to what appears to be Vertigo. Hydrate. PT consulted for assessment for vestibular therapy. (4) Lower extremity edema: Status: Chronic Assessment and plan: We ruled out DVTs. Would benefit from an echo - unavailable at [facility] at this time. EF on MPI from 08/26/19: 75%. This, however, does not rule out pulmonary hypertension which the patient very well might have. For now, would benefit from IVF. (5) Acute hypokalemia: Status: Acute Assessment and plan: Repleted. Monitor. (6) Hypomagnesemia: Status: Acute Assessment and plan: Repleted. Recheck in am. (7) Leucocytosis: Status: Acute Assessment and plan: No clear infectious source identified. Will continue to monitor for fever. If has a PE, could be the cause of leucocytosis. Could also be due to hemoconcentration or reactive to the syncopal episode. (8) DVT prophylaxis: Status: Acute Assessment and plan: Placed on empiric heparin gtt. (9) Discharge planning issues: Status: Acute Assessment and plan: Full code. History of Present Illness History of Present Illness Chief Complaint: syncope, dizziness Narrative: Mr Zhu is an 84 year old female with PMHx of DVT/PE, no longer on anticoagulation, ventricular arrhythmia, IDDM2, hypertension, mild cognitive impairment, anxiety, chronic edema BLE's, who was brought to [facility] ED today after having a syncopal episode of home. The patient still feels dizzy laying in bed and states that dizziness gets worse when she looks to the right. She denies hitting her head. She does not know how long she was down. Denies chest pain, shortness of breath, palpitations, nausea, burning when urinating, cough, runny nose, sore throat. For a few days within the last 2 weeks, Ms Zhu had taken twice her usual dose of lasix for worsening edema. In the ED, she was found to have an JAIMEE with Cr of 2.81 from baseline of 0.77, K of 2.9, Magnesium of 1.6, WBC of 15.56. She was indeed edematous. Her D-dimer was elevated to 5140. She ruled out for BLE DVTs, and her VQ scan has not yet been done. She ruled out for a UTI, Flu, and her CXR is negative. We were asked to admit the patient for further care. Review of Systems Narrative: 12 systems reviewed. Pertinent positives and negatives are as per HPI. [facility] Medical History (Updated 02/03/20 @ 18:32 by Sierra Pierre MD) Anxiety (Chronic) Depression (Acute) Diabetes mellitus (Inactive) Times 3 years. History of CVA (cerebrovascular accident) (Inactive 12/02/91) a. 1991. History of DVT (deep vein thrombosis) (Inactive) a. History of right DVT and PE. b. IVC filter placed 40 years ago. Iatrogenic pulmonary embolism and infarction (Resolved) IVC clip-1974 Inappropriate behavior (Acute) Lower extremity edema (Chronic) Mild cognitive impairment with memory loss (Chronic) Osteoarthrosis (Inactive) both hips, right greater than left Osteopenia (Inactive) Palliative care patient (Chronic) Panic attack (Inactive) Rupture of tendon of biceps, long head (Resolved 10/31/07) Surgical History History of bilateral salpingo-oophorectomy (Inactive) History of Surgical Procedure (Inactive) a. Cholecystectomy. b. Lysis of adhesions. c. Hysterectomy. d. Oophorectomy. Status post abdominal hysterectomy (Inactive) Status post breast biopsy (Inactive) Status post cholecystectomy (Inactive) Social History (Updated 01/22/20 @ 04:31 by Maame Ramirez MD) Smoking/Tobacco Use Status: Former Tobacco Use Tobacco: How many years used: 1 Second Hand Exposure: Yes Alcohol Intake: never Drug use: Never Substance use type: does not use Caregiver/Support person: No Household members: none Housing: apartment Number of Children: 1 number of grandchildren: 1 Communication Needs: Corrective Lenses Education Level: middle school Do you need help understanding health information?: Always 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 Pets and animals: No What is your relationship status?: How often do you talk on the phone with friends or family?: never How often do you get together with friends or relatives?: twice per week How often do you attend shinto or baptist services?: 4 or more times per year Panel score (0-1 are the most socially isolated patients): 1 What type of physical activity do you participate in: walking and irregular exercise Duration: < 15 minutes/day Frequency: 1-2 times per week Marielle/Lutheran: Jew Special marielle needs: No Seatbelt use: always Water heater temp set <120 deg: Yes Working smoke detector in home: Yes Fire extinguisher in home: Yes Do you feel safe at home: Yes Do you feel safe in your relationship?: Yes Additional Social history: in 1998. Lives in [place]. Moved in 2012. Has one granddaughter, only living relative; granddaughter lives in [place]. Since fall, no longer as social. Used to sit on porch of [employer] and greet people. Now staying to herself in her room. Not socializing in communal areas. Meds Home Medications and Allergies Home Medications Medication Instructions Recorded Confirmed Type lancets [Prodigy Lancets] #100 ea 08/17/15 02/03/20 History lancets [OneTouch Delica Lancets] #100 ea 03/22/16 02/03/20 History blood-glucose meter #1 each 01/22/19 02/03/20 Rx blood sugar diagnostic #100 strip 03/04/19 02/03/20 Rx simvastatin 40 mg tablet 40 mg PO DAILY #90 tab 05/05/19 02/03/20 Rx acetaminophen [Tylenol] 650 mg PO Q6H PRN PRN #0 tab 08/26/19 02/03/20 Rx lorazepam 0.5 mg tablet 0.5 mg PO BID PRN #10 tab 09/11/19 02/03/20 Rx donepezil 10 mg tablet 10 mg PO DAILY #30 tab 09/17/19 02/03/20 Rx albuterol sulfate 90 mcg/actuation 2 puff INHALATION Q4H PRN PRN #1 09/22/19 02/03/20 Rx aerosol inhaler inh ondansetron 4 mg disintegrating 4 mg PO Q6H PRN #10 tab 09/24/19 02/03/20 Rx tablet prochlorperazine maleate 10 mg 10 mg PO BID PRN #20 tab 09/29/19 02/03/20 Rx tablet magnesium oxide 400 mg PO BID #60 tab 10/01/19 02/03/20 Rx metformin 1,000 mg tablet 1,000 mg PO BID #180 tab-cap 11/02/19 02/03/20 Rx Lactobacillus acidophilus 1 cap PO TID 11/03/19 02/03/20 History psyllium husk (aspartame) 1 packet PO QDAY 11/03/19 02/03/20 History furosemide 40 mg tablet 40 mg PO DAILY #30 tab 01/08/20 02/03/20 Rx melatonin 3 mg tablet 3 mg PO HS #90 tab 01/08/20 02/03/20 Rx mirtazapine 15 mg tablet 15 mg PO HS #90 tab 01/08/20 02/03/20 Rx prazosin 2 mg capsule 2 mg PO HS #90 cap 01/08/20 02/03/20 Rx pen needle, diabetic 33 gauge x #100 each 01/11/20 02/03/20 Rx 3/16 gabapentin 100 mg capsule 100 mg PO QHS #90 cap 01/22/20 02/03/20 Rx hydroxyzine HCl 50 mg tablet 50 mg PO DAILY PRN #30 tab 01/22/20 02/03/20 Rx pantoprazole 20 mg tablet,delayed 40 mg PO DAILY #60 tab 01/22/20 02/03/20 Rx release sertraline 100 mg tablet 100 mg PO DAILY #90 tab 01/22/20 02/03/20 Rx sertraline 50 mg tablet 50 mg PO DAILY tab 01/22/20 02/03/20 History insulin glargine [Lantus Solostar See Rx Instructions .ROUTE .COMPLEX 02/03/20 02/03/20 History U-100 Insulin] Allergies Allergy/AdvReac Type Severity Reaction Status Date / Time iodine Allergy Unknown Unverified 02/03/20 07:43 Exam Narrative Exam Narrative: General: Obese female, laying comfortably in bed, A&Ox3, answering questions appropriately Neurological: A&Ox3, dizziness illicited when turning head to the right or when looking to the right, though she resists looking to the left; there is a faint horizontal nystagmus Psychiatric: calm/cooperative, appropriate speech pattern/content Skin: visible skin intact HEENT: Visibly atraumatic/normocephalic, dry MM, resistance to EOM exam, slight horizontal nystagmus noted, Clear oropharynx, no submandibular or cervical lymphadenopathy, no goiter or JVD Cardiovascular: RRR, no m/r/g Lungs: CTAB Gastrointestinal: soft, nontender, nondistended Genitourinary: deferred Extremities: no e/c/c BLE's Results Imaging Additional studies: MRI brain: 1. No evidence of an acute infarct. 2. 1.9 x 1.9 cm lobulated mass within the nasopharynx as described above. A neoplasm cannot be excluded. An ENT consult is recommended for further evaluation. Venous doppler BLE's: Right: Negative for DVT Left: Negative for DVT CXR : No acute pulmonary findings. EKG: NSR, poor lead placement, nonspecific diffuse ST-T changes, likely having to do with lead placement, HR 86 Labs Result diagrams: 02/03/20 08:50 02/03/20 08:50 Labs: Laboratory Results - last 24 hr 02/03/20 02/03/20 02/03/20 08:50 08:50 08:50 WBC 15.56 H RBC 4.13 Hgb 11.0 L Hct 34.2 L MCV 82.8 MCH 26.6 L MCHC 32.2 RDW 15.7 H Plt Count 315 MPV 8.6 Immature Gran % 0.3 Neutrophils % 82.1 Lymphocytes % 11.9 Monocytes % 5.1 Eosinophils % 0.4 Basophils % 0.2 Absolute Neutrophils 12.77 H Absolute Lymphocytes 1.85 Absolute Monocytes 0.79 H Absolute Eosinophils 0.06 Absolute Basophils 0.03 PT 10.2 INR 1.0 APTT 20.4 L D-Dimer Sodium 132 L Potassium 2.9 L* Chloride 89 L Carbon Dioxide 30.4 Anion Gap 12.6 H BUN 30 H Creatinine 2.81 H Estimated GFR/1.73 m2 16.11 Glucose 318 H Calcium 7.9 L Magnesium Total Bilirubin 0.9 AST 12 L ALT 13 L Alkaline Phosphatase 88 Troponin I < 0.05 NT-Pro-B Natriuret Pep 992 H Total Protein 7.2 Albumin 3.4 Urine Color Urine Clarity Urine pH Ur Specific Beau[place] Urine Protein Urine Ketones Urine Blood Urine Nitrite Urine Bilirubin Urine Urobilinogen Ur Leukocyte Esterase Urine RBC Urine WBC Ur Epithelial Cells Urine Crystals Urine Bacteria Urine Casts Urine Mucus Urine Other Ur Culture Indicated? Urine Glucose 02/03/20 02/03/20 02/03/20 08:50 08:50 10:22 WBC RBC Hgb Hct MCV MCH MCHC RDW Plt Count MPV Immature Gran % Neutrophils % Lymphocytes % Monocytes % Eosinophils % Basophils % Absolute Neutrophils Absolute Lymphocytes Absolute Monocytes Absolute Eosinophils Absolute Basophils PT INR APTT D-Dimer 5140 H Sodium Potassium Chloride Carbon Dioxide Anion Gap BUN Creatinine Estimated GFR/1.73 m2 Glucose Calcium Magnesium 1.6 L Total Bilirubin AST ALT Alkaline Phosphatase Troponin I NT-Pro-B Natriuret Pep Total Protein Albumin Urine Color Yellow Urine Clarity Clear Urine pH 5.5 Ur Specific Beau[place] 1.020 Urine Protein 30 H Urine Ketones Negative Urine Blood Negative Urine Nitrite Negative Urine Bilirubin Negative Urine Urobilinogen 0.2 Ur Leukocyte Esterase Negative Urine RBC 0-2 Urine WBC 5-10 Ur Epithelial Cells Few Urine Crystals Negative Urine Bacteria Moderate Urine Casts Comment Urine Mucus Negative Urine Other Few renal Ur Culture Indicated? Yes Urine Glucose Negative Last Vital Signs Temp 36.6 C 02/03/20 12:21 Pulse 80 02/03/20 13:40 Resp 20 02/03/20 13:40 BP 117/59 L 02/03/20 13:40 Pulse Ox 100 02/03/20 13:40
[2020-02-03 15:10] LABS: Creatine Kinase 49 U/L (26-192); Troponin I < 0.05 ng/Ml (<0.06)
[2020-02-03 15:42] LABS: Procalcitonin 0.2 ng/mL
[2020-02-03] MEDS: Normal Saline 1,000 ML 75 ML IV (18:30)
[2020-02-03] MEDS: Magnesium Oxide 400 MG TAB PO (20:32)
[2020-02-03] MEDS: Gabapentin 100 MG CAP PO (22:07)
[2020-02-03] MEDS: Prazosin 1 MG CAP 2 MG PO (22:07)
[2020-02-03] MEDS: Mirtazapine 15 MG TAB PO (22:08)
[2020-02-03] MEDS: Melatonin 3 MG TAB PO (22:08)
[2020-02-03] MEDS: Insulin Aspart 300 UNITS/3 ML PEN SC (22:08)
--- NOTE | 2020-02-04 | DI.NM_ITS ---
EXAM: NM LUNG SCAN PERFUSION CLINICAL HISTORY: suspected PE. TECHNIQUE: Injected Dose: Ventilation: 29.6 mCi Tc-99m DTPA via inhalation Perfusion: 5.2 mCi Tc-99m MAA via IV COMPARISON: XR CHEST 2V PA LATERAL from 02/03/2020 FINDINGS: Chest X-Ray: Clear lungs. Perfusion: Normal. Ventilation:Normal IMPRESSION: 1. Low probability VQ examination. . . . Modified PIOPED II criteria Probability Criteria High Two or more segments of V/Q mismatch Low Normal Perfusion, Non segmental perfusion abnormalitie s, pleural effusion in at least 1/3 of pleural cavity with no other defect Radiograph/perfusion matched defect in mid to upper lung confined to segment, one to three small segmental perfusion defects (<25% of segment) Perfusion defect smaller than corresponding radiogra phic lesion. Intermediate All other findings DATA REPOSITORY:
--- NOTE | 2020-02-04 | DI.US_ITS ---
EXAM: US RENAL CLINICAL HISTORY: JAIMEE. TECHNIQUE: Chavez scale, color and spectral Doppler were used. COMPARISON: CT ABDOMEN PELVIS WO from 09/18/2019 FINDINGS: Renal size in cm: Right: 11.8 left: 12.2 Echogenicity: Normal. Hydronephrosis: There is dilatation of the left renal pelvis. The left renal pelvis has a similar ap pearance on the CT scan from 09/18/19. This likely reflects a prominent extrarenal pelvis. Cyst or mass: No. Nephrolithiasis: No. Other findings: None. Bladder:Bladder is not well distended as the patient emptied her bladder prior to the examination. Ureteral jets: Right: Not visualized during the examination. Left: Not visualized during the examination. Prevoid vol: cc Postvoid vol:35 cc DOPPLER FINDINGS: Unremarkable IMPRESSION: 1. Dilatation of the left renal collecting system which has a similar appearance compared to the CT s can from 09/18/2019. This may represent an extrarenal pelvis. Follow-up as clinically appropriate. 2. Incomplete evaluation of the urinary bladder as the patient emptied her bladder prior to the exami [facility]. DATA REPOSITORY:
[2020-02-04 00:30] VITALS: BP 100/63; PULSE 90; RESP 18; TEMP 36.5; O2SAT 92
[2020-02-04 04:26] VITALS: BP 111/71; PULSE 84; RESP 14; TEMP 36.2; O2SAT 92
--- NOTE | 2020-02-04 05:09 | NUR.NOTE ---
0500 patient slept soundly with bed alarms on Nursing Note:
[2020-02-04 05:37] LABS: Abs Immature Grans 0.02 k/cumm (0.0-0.09); Absolute Basophil Count 0.03 k/cumm (0.0-0.2); Absolute Lymphocyte Count 2.84 k/cumm (1.2-3.4); Absolute Monocyte Count 0.75 k/cumm (0.11-0.7); Basophils % 0.3; Eosinophils % 2.2; HCT 28.9 % (36.0-46.0); HGB 9.4 g/dL (12.0-15.5); Immature Grans % 0.2 %; Lymphocytes % 24.6; Mean Corp. HGB Concentration 32.5 g/dL (32.0-36.0); Mean Corpuscular Hemoglobin 26.8 pg (27.0-33.0); Mean Corpuscular Volume 82.3 fL (80-95); Mean Platelet Volume 8.5 fL (8.0-11.0); Monocytes % 6.5; Neutrophils % 66.2; Platelet Count 233 x1000/uL (130-400); RBC 3.51 m/cumm (4.00-5.20); RBC Distribution Width 15.8 % (11.7-14.6); White Blood Cell Count 11.56 k/cumm (4.4-10.8)
[2020-02-04 05:47] LABS: Anion Gap 9.4 mmol/L (3-11); BUN 33 mg/dL (7-18); CO2 31.6 mmol/L (21.0-32.0); CREATININE 2.68 mg/dL (0.55-1.02); Chloride 94 mmol/L (98-107); Estimated GFR 17.02 (mL/min/1.73m2); Glucose 229 mg/dL (74-106); Magnesium 2.1 mg/dL (1.8-2.4); Sodium 135 mmol/L (136-145)
[2020-02-04 05:51] LABS: PTT Activated 41.2 sec (21.0-31.4)
[2020-02-04 05:52] LABS: Absolute Eosinophil Count 0.25 k/cumm (0.0-0.7); Absolute Neutrophil Count 7.65 k/cumm (1.2-6.7)
[2020-02-04 05:57] LABS: Anisocytosis 1+; Hypochromasia 2+; Polychromasia Present
[2020-02-04 06:02] LABS: Potassium 2.9 mmol/L (3.5-5.1)
[2020-02-04] MEDS: POTASSIUM CHLORIDE 10 MEQ/100 ML BAG 100 MEQ IVPB (06:49)
[2020-02-04] MEDS: Potassium Chloride 20 MEQ TABCR PO (06:49)
[2020-02-04 07:14] VITALS: PULSE 83
[2020-02-04 07:44] VITALS: BP 112/72; PULSE 80; RESP 17; TEMP 36.6; O2SAT 97
[2020-02-04] MEDS: Sertraline 50 MG TAB 150 MG PO (09:22)
[2020-02-04] MEDS: Lactobacillus Acidophilus CAP 1 CAP PO ×3 (09:23→19:51)
[2020-02-04] MEDS: Amoxicillin 875/Clav. 125 TAB PO (09:23)
[2020-02-04] MEDS: Psyllium PKT 1 EACH PO (09:24)
[2020-02-04] MEDS: Magnesium Oxide 400 MG TAB PO ×2 (09:24→19:50)
[2020-02-04] MEDS: Pantoprazole 20 MG TABCR 40 MG PO (09:24)
[2020-02-04] MEDS: Insulin Aspart 300 UNITS/3 ML PEN SC ×4 (09:26→21:25)
--- NOTE | 2020-02-04 10:11 | W.NUTCONSULT ---
Date of service: 02/04/20 Time of Service: 10:11 Nutritional Consult ASSESSMENT: 84 year old female admitted with syncope, possible PE, hypokalemia, hypomagnesiumia, acute kidney failure, NIDDM. Following Diabetic Diet with adequate intake. BMI indicates class 1 obesity. Labs indicate elevated blood sugars, DM consult pending. Not at nutritional risk at this time. MONITORING AND EVALUATION: will monitor po intake, weight and labs daily Time Spent in Nutritional Counseling and Treatment: 0 time spent face to face
[2020-02-04 11:33] VITALS: BP 108/78; PULSE 73; RESP 17; TEMP 36.6; O2SAT 96
[2020-02-04 11:44] LABS: Potassium 3.4 mmol/L (3.5-5.1)
[2020-02-04] MEDS: Insulin Glargine 300 UNITS/3 ML PEN 20 UNITS SC (12:55)
--- NOTE | 2020-02-04 13:33 | PT.INIE ---
Date of service: 02/04/20 Time of Service: 13:33 PT Notes Visit Reasons: SYNCOPAL EPISODE,JAIMEE,HYPOKALEMIA,?BBPV Physical Therapy Inpatient Initial Evaluation Date: 02/04/2020 Referring Doctor: Sierra Pierre MD PT Orders: PT CONSULT: Vertigo Precautions: Fall. Standard. Activity as tolerated. Patient Profile/Admitting Diagnosis: Patient is an 84-year-old female who presented to the ED on 02/03/2020 with chief complaints of dizziness, lightheadedness, and syncopal episodes x2 at home. Patient is diagnosed with syncope, suspected pulmonary embolism, dizziness, acute hypokalemia, hypomagnesemia, and leukocytosis with referral to physical therapy to address functional mobility impairment resulting from vertigo. PMHX: Medical History (Updated 02/03/20 @ 18:32 by Sierra Pierre MD) Anxiety (Chronic) Depression (Acute) Diabetes mellitus (Inactive) Times 3 years. History of CVA (cerebrovascular accident) (Inactive 12/02/91) a. 1991. History of DVT (deep vein thrombosis) (Inactive) a. History of right DVT and PE. b. IVC filter placed 40 years ago. Iatrogenic pulmonary embolism and infarction (Resolved) IVC clip-1974 Inappropriate behavior (Acute) Lower extremity edema (Chronic) Mild cognitive impairment with memory loss (Chronic) Osteoarthrosis (Inactive) both hips, right greater than left Osteopenia (Inactive) Palliative care patient (Chronic) Panic attack (Inactive) Rupture of tendon of biceps, long head (Resolved 10/31/07) Surgical History History of bilateral salpingo-oophorectomy (Inactive) History of Surgical Procedure (Inactive) a. Cholecystectomy. b. Lysis of adhesions. c. Hysterectomy. d. Oophorectomy. Status post abdominal hysterectomy (Inactive) Status post breast biopsy (Inactive) Status post cholecystectomy (Inactive) Social History/Home Situation: Patient lives alone in an apartment at the [facility]. She is independent with all activities of daily living using the 4 wheeled walker. She goes down to the basement apartment building for all her meals. Home health nurse comes in twice a week to manage her medications. Equipment Owned/DME: 4 wheeled walker Subjective: Patient stated that she had two fainting episodes --the first 1 happened 2 hours preceding the second 1 that required EMS to bring her to the hospital. Patient reports for this consult that she considerable dizziness that is aggravated by positional changes. She complained of significant dizziness with initiation of the Hustler-Hallpike Maneuver and was not able to tolerate the last leg of trunk extension as well as cervical neck extension. She refused to get out of bed due to increase in symptoms from the said maneuver. Patient also refused lower extremity manual muscle testing stating that her legs are hurting. nurse Mandy is aware. Objective: General Observation: Patient seen resting in bed. IV in the left and the right UE. Swelling noted to bilateral legs. Rivera catheter in place Mental Status: Alert and oriented x 4 Pain: Reported pain and discomfort on bilateral legs. ROM: Right Upper Extremity: Shoulder Flexion WFL. Shoulder abduction WFL. Elbow flexion WFL. Wrist flexion WFL. Opening and closing of hand WFL. Left Upper Extremity: Shoulder Flexion WFL. Shoulder abduction WFL. Elbow flexion WFL. Wrist flexion WFL. Opening and closing of hand WFL. Right Lower Extremity: NT due to patient refusal. Nurse Galvan did report that patient managed to walk to the bathroom last night with her walker. Left Lower Extremity: NT due to patient refusal. Nurse Galvan did report that patient managed to walk to the bathroom last night with her walker. Strength: Right Upper Extremity: Shoulder flexors 4/5. Shoulder abductors 4/5. Elbow flexors 5/5. Elbow extensors 5/5. Subscription Clerk strong. Left Upper Extremity: Shoulder flexors 4/5. Shoulder abductors 4/5. Elbow flexors 5/5. Elbow extensors 5/5. Subscription Clerk strong. Right Lower Extremity: NT due to patient refusal. Nurse Galvan did report that patient managed to walk to the bathroom last night with her walker. Left Lower Extremity: NT due to patient refusal. Nurse Galvan did report that patient managed to walk to the bathroom last night with her walker. Sensation: Intact as to pain and pressure on bilateral lower extremities. Bed Mobility/Transfers: Rolling minimal assist Supine to sit minimal assist Sit to supine minimal assist Sit to stand NT due to patient refusal. Nurse Galvan did report that patient managed to walk to the bathroom last night with her walker. Stand to sit NT due to patient refusal. Nurse Galvan did report that patient managed to walk to the bathroom last night with her walker. Bed to chair NT due to patient refusal. Nurse Mandy did report that patient managed to walk to the bathroom last night with her walker. Chair to bed NT due to patient refusal. Nurse Mandy did report that patient managed to walk to the bathroom last night with her walker. Gait: NT due to patient refusal. Nurse Mandy did report that patient managed to walk to the bathroom last night with her walker. Balance: Static Sitting: Fair Dynamic Sitting: Fair Static Standing: Unable Dynamic Standing: Unable Special Tests: Mobility Limitations Standardized Measure [facility]-PAC 6 clicks Basic Mobility Inpatient Short Form: Raw Score: 12 CMS Score: 21% deficit Informed Consent/Education: Patient instructed in purpose of PT consult and plan of care. Assessment: Patient is an 84-year-old female who presented to the ED on 02/03/2020 with chief complaints of dizziness, lightheadedness, and syncopal episodes x2 at home. Patient is diagnosed with syncope, suspected pulmonary embolism, dizziness, acute hypokalemia, hypomagnesemia, and leukocytosis resulting to significantly limited mobility ADL performance, difficulty with walking, balance impairment, positional vertigo, and generalized weakness with referral to physical therapy to address functional mobility impairment resulting. Patient presents with clinical signs and symptoms consistent with current/admitting diagnoses that have resulted to mobility limitations, gait instability, generalized weakness, and impairment of motor control as demonstrated by the following impairment level findings: 1. Decreased strength to B LE major muscle groups 2. Impaired sitting/standing balance due to positional vertigo 3. Impaired activity tolerance Impairments are contributing to the following functional limitations: 1. Dependent bed mobility skills 2. Increased dependence with transfers 3. Inability to safely ambulate without assistive device and physical assistance 4. Increase completion time for mobility ADL performance 5. Increased fall risk 6. Inability to negotiate steps alone safely Patient is assessed as a 80009 moderate complexity based on the following: History: 84-year-old female with impairment level findings, functional limitations, past medical history and [facility] score of 21% deficit Examination: Demonstrable impairment in strength, balance, and range of motion with underlying impairments and functional limitations as documented above Presentation: Evolving Decision Makin moderate complexity Goals: Goals X1 week 1. Supine-Sit independent 2. Sit-Supine independent 3. Sit-Stand independent 4. Stand-Sit independent 5. Bed-Chair independent 6. Chair-Bed independent 7. Independent gait on level surface with use of 4 wheeled walker for at least 300 feet without report of vertigo 9. Independent with home exercise program 10. Good static and dynamic standing balance/tolerance Plan of Care/Treatment Plan: 1-2x/day, 7 days/week x 1 week. Plan of care has been reviewed with the CRUISE CONSULTANT providing the service under Physical Therapy direction. Initiate Physical Therapy intervention for strengthening, bed mobility, transfers, gait, stairs, balance training, use of assistive device. DISCHARGE RECOMMENDATIONS: Patient will benefit from home health PT services in order to progress mobility level using least restrictive assistive ambulatory device, assess home safety, identify additional equipment needs, and establish a functional maintenance program that will increase ability of patient to remain at home. TREATMENT CODE/TIME: 9716 2 x 32 minutes beginning at 13:33 PM. Thank you very much for this referral. Felicity iDaz PT, DPT, CLT [facility] [place], [place]
--- NOTE | 2020-02-04 13:43 | INITIAL_ITS ---
- If Service Date Differs Date of service: 02/04/20 Time of Service: 13:46 Care Management Initial Assess REASON FOR HOSPITALIZATION:: Syncopal episode, JAIMEE, Hypokalemia PAST MEDICAL HISTORY/PAST SURGICAL HISTORY:: Medical History (Updated 02/03/20 @ 18:32 by Sierra Pierre MD). Anxiety (Chronic). Depression (Acute). Diabetes mellitus (Inactive). Times 3 years. History of CVA (cerebrovascular accident) (Inactive 12/02/91). a. 1991. History of DVT (deep vein thrombosis) (Inactive). a. History of right DVT and PE. b. IVC filter placed 40 years ago. Iatrogenic pulmonary embolism and infarction (Resolved). IVC clip-1974. Inappropriate behavior (Acute). Lower extremity edema (Chronic). Mild cognitive impairment with memory loss (Chronic). Osteoarthrosis (Inactive). both hips, right greater than left. Osteopenia (Inactive). Palliative care patient (Chronic). Panic attack (Inactive). Rupture of tendon of biceps, long head (Resolved 10/31/07). Surgical History . History of bilateral salpingo-oophorectomy (Inactive). History of Surgical Procedure (Inactive). a. Cholecystectomy. b. Lysis of adhesions. c. Hysterectomy. d. Oophorectomy. Status post abdominal hysterectomy (Inactive). Status post breast biopsy (Inactive). Status post cholecystectomy (Inactive) PREVIOUS FUNCTIONAL STATUS/SOCIAL/FAMILY SUPPORTS:: Alyssa lives at the [facility] alone. Her in 1998. She has previously been very social, attending the meal site and visiting with neighbors at the [facility], but recently (Fall 2018) has become more isolated and is not as social as before. She requires assistance from HH RN for medication management. She has a distant relative, a neice who she does not have a close relationship with, Marge, who lives in [place]. She lives independently, but does not drive and requires some assistance with ADL's. CURRENT FUNCTIONAL STATUS:: Alyssa was sitting up in bed when CM met with her. She reported that she is still feeling dizzy today, and her blood sugar is very high. She stated that she had a very good experience at [facility], where she went for psychiatric stabilization recently. She reported that HH RN helps her with her medication, which she does not feel that she could do alone. PT plans to evaluate Alyssa today, which will determine whether or not she will need more support in the home. CM will continue to follow. ADVANCE DIRECTIVES:: On file, Marge listed as agent. Has patient been provided with information about the portal?: No Did the patient sign up for the portal?: No CODE STATUS:: DNR/DNI (Colst on file.) INSURANCE COVERAGE / FINANCIAL ISSUES:: [facility] CURRENT HOME/COMMUNITY SERVICES/EQUIPMENT:: Alyssa has a FWW, and HH RN for medication management. PRIMARY CARE PHYSICIAN:: Joshua Reina [facility] POTENTIAL DISCHARGE NEEDS:: Increased HH services, possible SNF referrals PATIENT/FAMILY EDUCATION NEEDS:: Review discharge instructions regarding activ ity levels and medications, discussion of self care needs including ask me three ANTICIPATED BARRIERS TO DISCHARGE:: Alyssa may need additional rehab prior to returning home. TRANSPORTATION:: RCT PLAN:: Anticipate Alyssa will return home vs SNF placement, determined by further evaluation, once medically cleared. She will transport via RCT, coordinated by CM. She will follow up with her PCP and Palliative. She will resume her HH RN, if home. CM will continue to follow.
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
[2020-02-04] MEDS: Meclizine 12.5 MG TAB PO (13:58)
--- NOTE | 2020-02-04 15:38 | W.PM.PROGNOT ---
Date of Service Date of service: 02/04/20 Time of Service: 15:39 Assessment and Plan Assessment and plan (1) Suspected pulmonary embolism: Status: Ruled-out Assessment and plan: Resume prophylactic dosing of heparin. (2) Syncope: Status: Acute Assessment and plan: No arrhythmic events on tele to explain syncope. Does have quite a heart murmur - due to a valve issue. Will attempt to obtain an echo. Cannot tolerate any more IVF - has crackles. Ruled out for ACS. (3) Dizziness: Status: Acute Assessment and plan: Multifactorial - as above in addition to what appears to be Vertigo and possible valvular issue. Obtain echo. (4) Lower extremity edema: Status: Chronic Assessment and plan: We ruled out DVTs. Obtain echo. EF on MPI from 08/26/19: 75%. This, however, does not rule out pulmonary hypertension or valvular issues. Can no longer tolerate IVF. (5) Acute hypokalemia: Status: Acute Assessment and plan: Repleted. Monitor. (6) Hypomagnesemia: Status: Resolved Assessment and plan: Repleted. Recheck in am. (7) Leucocytosis: Status: Acute Assessment and plan: No clear infectious source identified, but has an elevation in procalcitonin as well. Started on empiric augmentin. ?sinusitis. (8) DVT prophylaxis: Status: Acute Assessment and plan: heparin sc. (9) Discharge planning issues: Status: Acute Assessment and plan: Full code. Subjective Subjective Interval history since last seen: Ms Zhu states that she is slightly less dizzy, but remains dizzy when turning to the right, resisting vestibular therapy with PT. Denies chest pain, shortness of breath, nausea, diarrhea, runny nose or sore throat. Nursing requests wound care consult for coccyx wound present on admission. Exam Narrative Exam Narrative: General: Obese female, laying comfortably in bed, A&Ox3, answering questions appropriately, looks more comfortable turning to right today than yesterday HEENT: Visibly atraumatic/normocephalic, MMM Cardiovascular: RRR, +KRISTA Lungs: crackles at B bases Gastrointestinal: soft, nontender, nondistended Extremities: +1 edema BLE's, RLE wound on tibial surface - not infected Objective Objective Clinical Data: Abnormal lab results 02/04/20 02/04/20 02/04/20 Range/Units 05:20 05:20 05:20 WBC 11.56 H (4.4-10.8) k/cumm RBC 3.51 L (4.00-5.20) m/cumm Hgb 9.4 L (12.0-15.5) g/dL Hct 28.9 L (36.0-46.0) % MCH 26.8 L (27.0-33.0) pg RDW 15.8 H (11.7-14.6) % Absolute Neutrophils 7.65 H (1.2-6.7) k/cumm Absolute Monocytes 0.75 H (0.11-0.7) k/cumm APTT 41.2 H (21.0-31.4) sec Sodium 135 L (136-145) mmol/L Potassium 2.9 L* (3.5-5.1) mmol/L Chloride 94 L (98-107) mmol/L BUN 33 H (7-18) mg/dL Creatinine 2.68 H (0.55-1.02) mg/dL Glucose 229 H D (74-106) mg/dL Calcium 8.0 L (8.5-10.1) mg/dL 02/04/20 Range/Units 10:30 WBC (4.4-10.8) k/cumm RBC (4.00-5.20) m/cumm Hgb (12.0-15.5) g/dL Hct (36.0-46.0) % MCH (27.0-33.0) pg RDW (11.7-14.6) % Absolute Neutrophils (1.2-6.7) k/cumm Absolute Monocytes (0.11-0.7) k/cumm APTT (21.0-31.4) sec Sodium (136-145) mmol/L Potassium 3.4 L (3.5-5.1) mmol/L Chloride (98-107) mmol/L BUN (7-18) mg/dL Creatinine (0.55-1.02) mg/dL Glucose (74-106) mg/dL Calcium (8.5-10.1) mg/dL Vital Signs Temperature 36.6 C 02/04/20 11:33 Temperature Source Tympanic 02/04/20 11:33 Pulse 73 03/05/20 11:33 Pulse Rhythm Regular 02/04/20 15:03 Pulse 90 02/03/20 10:50 Respiratory Rate 17 02/04/20 11:33 Respiratory Effort 02/04/20 15:03 Respiratory Depth Normal 02/04/20 15:03 Respiratory Pattern Normal 02/04/20 15:03 Blood Pressure 108/78 02/04/20 11:33 Blood Pressure Mean 77 02/03/20 10:49 Blood Pressure Position Supine 02/03/20 07:29 Pulse Oximetry 96 02/04/20 11:33 Oxygen Delivery Method Room Air 02/04/20 11:33 Oxygen Flow Rate 0 02/04/20 11:33 Pain Level 0 02/04/20 11:33 Intake & Output 02/03/20 02/04/20 02/04/20 23:59 11:59 23:59 Intake Total 390 / 890 592.892 / 1081.892 489 / 1081.892 Output Total 800 / 800 800 / 1100 300 / 1100 Balance -410 / 90 -207.108 / -18.108 189 / -18.108 Weight 85.7 kg 86.3 kg Intake: IV 150 / 650 112.892 / 112.892 Oral 240 / 240 480 / 969 489 / 969 Output: Urine 800 / 800 800 / 1100 300 / 1100 Other: Urine Color Yellow Yellow Yellow Urine Appearance Cloudy Clear Clear Urine Odor Strong Voiding Methods Bedside Commode Bedside Commode Toilet Laboratory Results WBC 11.56 k/cumm (4.4-10.8) H 02/04/20 05:20 RBC 3.51 m/cumm (4.00-5.20) L 02/04/20 05:20 Hgb 9.4 g/dL (12.0-15.5) L 02/04/20 05:20 Hct 28.9 % (36.0-46.0) L 02/04/20 05:20 MCV 82.3 fL (80-95) 02/04/20 05:20 MCH 26.8 pg (27.0-33.0) L 02/04/20 05:20 MCHC 32.5 g/dL (32.0-36.0) 02/04/20 05:20 RDW 15.8 % (11.7-14.6) H 02/04/20 05:20 Plt Count 233 x1000/uL (130-400) 02/04/20 05:20 MPV 8.5 fL (8.0-11.0) 02/04/20 05:20 Immature Gran % 0.2 % 02/04/20 05:20 Neutrophils % 66.2 02/04/20 05:20 Lymphocytes % 24.6 02/04/20 05:20 Monocytes % 6.5 02/04/20 05:20 Eosinophils % 2.2 02/04/20 05:20 Basophils % 0.3 02/04/20 05:20 Absolute Neutrophils 7.65 k/cumm (1.2-6.7) H 02/04/20 05:20 Absolute Lymphocytes 2.84 k/cumm (1.2-3.4) 02/04/20 05:20 Absolute Monocytes 0.75 k/cumm (0.11-0.7) H 02/04/20 05:20 Absolute Eosinophils 0.25 k/cumm (0.0-0.7) 02/04/20 05:20 Absolute Basophils 0.03 k/cumm (0.0-0.2) 02/04/20 05:20 RBC Morphology See below 02/04/20 05:20 Polychromasia Present 02/04/20 05:20 Hypochromasia 2+ 02/04/20 05:20 Anisocytosis 1+ 02/04/20 05:20 PT 10.2 sec (9.3-11.0) 02/03/20 08:50 INR 1.0 (0.9-1.1) 02/03/20 08:50 APTT 41.2 sec (21.0-31.4) H 02/04/20 05:20 D-Dimer 5140 ng/mlFEU (<500) H 02/03/20 08:50 Sodium 135 mmol/L (136-145) L 02/04/20 05:20 Potassium 3.4 mmol/L (3.5-5.1) L 02/04/20 10:30 Chloride 94 mmol/L (98-107) L 02/04/20 05:20 Carbon Dioxide 31.6 mmol/L (21.0-32.0) 02/04/20 05:20 Anion Gap 9.4 mmol/L (3-11) 02/04/20 05:20 BUN 33 mg/dL (7-18) H 02/04/20 05:20 Creatinine 2.68 mg/dL (0.55-1.02) H 02/04/20 05:20 Estimated GFR/1.73 m2 17.02 (mL/min/1.73m2) 02/04/20 05:20 Glucose 229 mg/dL (74-106) H D 02/04/20 05:20 Calcium 8.0 mg/dL (8.5-10.1) L 02/04/20 05:20 Magnesium 2.1 mg/dL (1.8-2.4) 02/04/20 05:20 Total Bilirubin 0.9 mg/dL (0.2-1.0) 02/03/20 08:50 AST 12 U/L (15-37) L 02/03/20 08:50 ALT 13 U/L (14-59) L 02/03/20 08:50 Alkaline Phosphatase 88 U/L (46-116) 02/03/20 08:50 Creatine Kinase 49 U/L (26-192) 02/03/20 14:45 Troponin I < 0.05 ng/Ml (<0.06) 02/03/20 14:45 NT-Pro-B Natriuret Pep 992 pg/mL (<300) H 02/03/20 08:50 Total Protein 7.2 g/dL (6.4-8.2) 02/03/20 08:50 Albumin 3.4 g/dL (3.4-5.0) 02/03/20 08:50 Procalcitonin 0.2 ng/mL 02/03/20 14:45 Urine Color Yellow (Yellow) 02/03/20 10:22 Urine Clarity Clear (Clear) 02/03/20 10:22 Urine pH 5.5 (5-8) 02/03/20 10:22 Ur Specific [place] 1.020 (1.005-1.025) 02/03/20 10:22 Urine Protein 30 mg/dL (Negative) H 02/03/20 10:22 Urine Ketones Negative mg/dL (Negative) 02/03/20 10:22 Urine Blood Negative (Negative) 02/03/20 10:22 Urine Nitrite Negative (Negative) 02/03/20 10:22 Urine Bilirubin Negative (Negative) 02/03/20 10:22 Urine Urobilinogen 0.2 EU/dL (Up TO 0.2) 02/03/20 10:22 Ur Leukocyte Esterase Negative (Negative) 02/03/20 10:22 Urine RBC 0-2 HPF (0-2) 02/03/20 10:22 Urine WBC 5-10 HPF (0-5) 02/03/20 10:22 Ur Epithelial Cells Few HPF (Negative) 02/03/20 10:22 Urine Crystals Negative HPF (Negative) 02/03/20 10:22 Urine Bacteria Moderate HPF (Negative) 02/03/20 10:22 Urine Casts Comment LPF (Negative) 02/03/20 10:22 Urine Mucus Negative (Negative) 02/03/20 10:22 Urine Other Few renal (Negative) 02/03/20 10:22 Ur Culture Indicated? Yes 02/03/20 10:22 Urine Glucose Negative mg/dL (Negative) 02/03/20 10:22 US renal: 1. Dilatation of the left renal collecting system which has a similar appearance compared to the CT scan from 09/18/2019. This may represent an extrarenal pelvis. Follow-up as clinically appropriate. 2. Incomplete evaluation of the urinary bladder as the patient emptied her bladder prior to the examination.
--- NOTE | 2020-02-04 16:14 | W.NEUROCONSU ---
Date of service: 02/04/20 Time of Service: 16:14 Assessment and Plan Assessment and plan (1) Dizziness: Status: Acute (2) Heart murmur: Status: Chronic (3) Acute renal failure: Status: Acute Assessment and plan: Ms. Zhu is an 84 year-old, right-handed woman with a complicated past medical history who presents with unclear symptoms, specifically non-specific dizziness, possibly with an event or 2 of LOC found to have acute renal failure. Her exam was significant for a systolic murmur, bilateral edema, subtle symmetric bilateral LE weakness, and reduced LE weakness in addition to some cognitive loss. Unfortunately, her history is not reliable and thus it's hard to know what is going on. Clinically, she is behaving like a peripheral vertigo. She has improved this afternoon and I discussed with her continued PT as tolerated. Otherwise, she does have a history of ventricular arrhythmia. She hasn't had any significant findings on telemetry. It's possible that she could have 2 things going on, but seems less likely. Can consider extended outpatient cardiac monitoring. Otherwise, she is on several centrally-acting medications. It's possible her dizziness could be due to medication toxicity in the setting of severe JAIMEE. Consider reducing/stopping any medications that are not necessary, though I am not sure that I feel strongly about this. Finally, the systolic murmur is concerning for a cardiac etiology. Agree with TTE. Please call with any further questions or concerns. History of Present Illness History of Present Illness Chief Complaint: dizziness Narrative: Handedness: right. HPI: MS. Zhu is an 84 year-old woman with a PMH of hypertension, type 2 diabetes, depression, anxiety, remote DVT/PE not currently on anticoagulation, osteopenia, and a recent diagnosis of MCI in the last 6months. Per the notes she has a history of stroke in 1991 though she does not recall ever having a stroke. She presented to the ER yesterday after some type of episode. She has described varying symptoms to different providers. The initial story in the ER included non vertiginous dizziness which prompted her to lay down without LOC. She also related a 2 week history of dizziness upon standing associated with increased furosemide use. However, her exam was significant for nystagmus, +HINTS, dry mucous membranes, and bilateral LE edema. She also described ongoing dizziness with head turn and ambulation. Work-up was significant for JAIMEE Cr 2.81 (Baseline 0.9). Further testing includes elevated D-dimer, low probability VQ scan, neg DVT scan, and neg renal u/s. Orthostatic vitals were negative. She had an MRI brain which I was able to review personally. There were no acute findings. She has moderate diffuse cerebral atrophy with mild chronic small vessel disease changes. 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 It was reported on CT scan in Aug 2019 as stable compared to CT in Nov 2013. I viewed those images as well, but did not think the mass was well visualized. Telemetry has been unremarkable thus far. Since admission, her story has changed. She next described a full syncopal episode of unknown duration. She is now describing 2 [id number] syncopal episodes resulting in falls without injuries. She is unsure how long she was out for. She currently denies any dizziness in the last 2 weeks. In our current conversation, she initially described preceding lightheadedness and NO vertigo, but then in the next sentence endorsed vertigo. I confronted her on this and she denied ever saying anything different. She also describes associated nausea and shortness of breath with the episodes. But then later said she has been short of breath for the last 2 weeks.... Since admission, she has resisted head movements and ambulation, though this afternoon she seems to be feeling better. She has refused Ray[place]-Hallpike testing. Consults Requesting physician: Sierra Pierre Review of Systems All systems reviewed & are unremarkable except as noted in HPI and below [facility] Medical History Anxiety (Chronic) Depression (Acute) Diabetes mellitus (Inactive) Times 3 years. History of CVA (cerebrovascular accident) (Inactive 12/02/91) a. 1991. History of DVT (deep vein thrombosis) (Inactive) a. History of right DVT and PE. b. IVC filter placed 40 years ago. Iatrogenic pulmonary embolism and infarction (Resolved) IVC clip-1974 Inappropriate behavior (Acute) Lower extremity edema (Chronic) Mild cognitive impairment with memory loss (Chronic) Osteoarthrosis (Inactive) both hips, right greater than left Osteopenia (Inactive) Palliative care patient (Chronic) Panic attack (Inactive) Rupture of tendon of biceps, long head (Resolved 10/31/07) Surgical History History of bilateral salpingo-oophorectomy (Inactive) History of Surgical Procedure (Inactive) a. Cholecystectomy. b. Lysis of adhesions. c. Hysterectomy. d. Oophorectomy. Status post abdominal hysterectomy (Inactive) Status post breast biopsy (Inactive) Status post cholecystectomy (Inactive) Family History Son , age 52 Sudden cardiac arrest Father , killed by Nazis in front of her when she was 10 yo Murder Social History (Updated 02/04/20 @ 21:04 by Shasta Tapia MD) Smoking/Tobacco Use Status: Former Tobacco Use Tobacco: How many years used: 1 Second Hand Exposure: Yes Alcohol Intake: never Drug use: Never Substance use type: does not use Caregiver/Support person: No Household members: none Housing: apartment Number of Children: 1 number of grandchildren: 1 Communication Needs: Corrective Lenses Education Level: middle school Do you need help understanding health information?: Always 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 Pets and animals: No What is your relationship status?: How often do you talk on the phone with friends or family?: never How often do you get together with friends or relatives?: twice per week How often do you attend gnosticist or yarsani services?: 4 or more times per year Panel score (0-1 are the most socially isolated patients): 1 What type of physical activity do you participate in: walking and irregular exercise Duration: < 15 minutes/day Frequency: 1-2 times per week Marielle/Sikhism: Bahai Special marielle needs: No Seatbelt use: always Water heater temp set <120 deg: Yes Working smoke detector in home: Yes Fire extinguisher in home: Yes Do you feel safe at home: Yes Do you feel safe in your relationship?: Yes Additional Social history: in 1998. Lives in [place]. Moved in 2012. Has one granddaughter, only living relative; granddaughter lives in [place]. Since fall, no longer as social. Used to sit on porch of [facility] and greet people. Now staying to herself in her room. Not socializing in communal areas. She escaped [place] alone at the age of 16. 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 They had 1 son and then moved to the [place] as he was given the option as a concentration camp survivor. Visit Medication and Allergies Active Medications Generic Name Dose Route Start Last Admin Trade Name Freq PRN Reason Stop Dose Admin Acetaminophen 0 mg 02/03/20 14:30 Tylenol PO Q4H PRN PRN Acetaminophen 650 mg 02/03/20 18:21 Tylenol PO Q6H PRN PRN Acidophilus/Pectin 1 cap 02/04/20 08:30 02/04/20 13:53 Acidophilus PO 1 cap TID EMELI Administration Al Hydrox/Mg Hydrox/Simethicone 30 ml 02/03/20 14:30 Mylanta Liquid PO Q2H PRN PRN Albuterol Sulfate 2.5 mg 02/03/20 14:30 Proventil Updraft UPD Q2H PRN PRN Albuterol Sulfate 2 puff 02/03/20 19:01 Ventolin Hfa IH Q4H PRN PRN Amoxicillin/Clavulanate Potassium 1 tab 02/04/20 20:00 Augmentin 500-125 Tablet PO BID EMELI Dextrose 0 gm 02/03/20 14:30 Insta-Glucose PO DIRECTED PRN Dextrose/Water 0 gm 02/03/20 14:30 IVP DIRECTED PRN Dimethicone/Zinc Oxide 0 gm 02/03/20 14:15 Lorraine Protect Cream TP PRN PRN Docusate Sodium 100 mg 02/03/20 14:30 Colace PO TID PRN PRN Donepezil HCl 10 mg 02/04/20 08:30 Aricept PO DAILY EMELI Famotidine 20 mg 02/05/20 08:30 Pepcid PO DAILY EMELI Gabapentin 100 mg 02/03/20 22:00 02/03/20 22:07 Neurontin PO 100 mg HS EMELI Administration Heparin Sodium (Porcine) 5,000 units 02/04/20 16:00 SC Q12H EMELI Hydroxyzine HCl 50 mg 02/04/20 07:45 Atarax PO DAILY PRN PRN anxiety Insulin Aspart 0 units 02/03/20 16:30 02/04/20 11:38 Novolog Flexpen SC 4 units AC & HS EMELI Administration Protocol Insulin Glargine 20 units 02/04/20 12:00 02/04/20 12:55 Lantus Solostar SC 20 units DAILY@1200 EMELI Administration Lorazepam 0.5 mg 02/04/20 07:45 Ativan PO BID PRN PRN anxiety Magnesium Hydroxide 30 ml 02/03/20 14:30 Milk Of Magnesia PO DAILY PRN PRN Magnesium Oxide 400 mg 02/03/20 20:00 02/04/20 09:24 Mag-Ox 400 PO 400 mg BID EMELI Administration Meclizine HCl 12.5 mg 02/03/20 14:30 02/04/20 13:58 Antivert PO 12.5 mg TID PRN PRN Administration Melatonin 3 mg 02/03/20 22:00 02/03/20 22:08 PO 3 mg HS EMELI Administration Mirtazapine 15 mg 02/03/20 22:00 02/03/20 22:08 Remeron PO 15 mg HS EMELI Administration Ondansetron HCl 4 mg 02/03/20 18:21 Zofran Odt PO Q6H PRN nausea and vomiting Potassium Chloride 40 meq 02/04/20 20:00 K-Dur PO BID EMELI Prazosin HCl 2 mg 02/03/20 22:00 02/03/20 22:07 Minipress PO 2 mg HS EMELI Administration Prochlorperazine Maleate 10 mg 02/03/20 18:21 Compazine PO BID PRN nausea and vomiting Psyllium Hydrophilic Mucilloid 1 each 02/04/20 08:30 02/04/20 09:24 Metamucil PO 1 each DAILY EMELI Administration Sertraline HCl 150 mg 02/04/20 08:30 02/04/20 09:22 Zoloft PO 150 mg DAILY EMELI Administration Allergies iodine Allergy (Unknown, Unverified 02/03/20 07:43) Exam Narrative Exam Narrative: Physical Exam: Gen: Patient of apparent stated age, NAD Head and face: no facial or cranial abnormalities Neck: Supple, no meningismus, no occipital tenderness CV: + S1, S2, RRR, harsh S1 murmur Resp: CTA B/L Abd: soft, nontender, nondistended Ext: 2+ pitting LE edema. No clubbing or cyanosis. No bony deformity. Neuro Exam: Language: fluency, naming, repetition, and comprehension intact; Mental Status: AAOx3, current events and fund of knowledge generally intact; wasn't quite clear on what happened on 08/12/01; able to recall other remote events; delayed recall 0/3; serial 7s 4/5; Speech: no dysarthria Cranial nerves: Funduscopy: not performed CN II: visual nobles intact CN III, IV, : extraocular movements intact, no nystagmus, pupils symmetric and reactive to light CN V: face sensation intact to LT and PP CN VII: no facial asymmetry noted CN VIII: hearing intact bilaterally CN IX, X: palate rises symmetrically CN XI: trapezius/SCM 5/5 bilaterally CN XII: protrudes tongue symmetrically Sensory: intact to LT, PP, vibration, and joint position in all extremities Motor: bulk and tone intact. Fine motor movements intact bilaterally. No pronator drift. Strength 5/5 throughout the bilateral UE and 4++/5 in the bilateral LE, limited by pain/swelling. No dizziness with head movements on exam today/HIT negative. Reflexes: 2+ at the biceps, triceps, and brachioradialis; reduced/absent at the patella and achilles tendons bilaterally; toes neutral bilaterally; Coordination: FTN and HTS intact bilaterally Gait: patient declined Results Last Vital Signs Temp 36.6 C 02/04/20 11:33 Pulse 73 02/04/20 11:33 Resp 17 02/04/20 11:33 BP 108/78 02/04/20 11:33 Pulse Ox 96 02/04/20 11:33 Labs Result diagrams: 02/04/20 05:20 02/04/20 10:30 Labs: Laboratory Results - last 24 hr 02/04/20 02/04/20 02/04/20 05:20 05:20 05:20 WBC 11.56 H RBC 3.51 L Hgb 9.4 L Hct 28.9 L MCV 82.3 MCH 26.8 L MCHC 32.5 RDW 15.8 H Plt Count 233 MPV 8.5 Immature Gran % 0.2 Neutrophils % 66.2 Lymphocytes % 24.6 Monocytes % 6.5 Eosinophils % 2.2 Basophils % 0.3 Absolute Neutrophils 7.65 H Absolute Lymphocytes 2.84 Absolute Monocytes 0.75 H Absolute Eosinophils 0.25 Absolute Basophils 0.03 RBC Morphology See below Polychromasia Present Hypochromasia 2+ Anisocytosis 1+ APTT 41.2 H Sodium 135 L Potassium 2.9 L* Chloride 94 L Carbon Dioxide 31.6 Anion Gap 9.4 BUN 33 H Creatinine 2.68 H Estimated GFR/1.73 m2 17.02 Glucose 229 H D Calcium 8.0 L Magnesium 2.1 02/04/20 10:30 WBC RBC Hgb Hct MCV MCH MCHC RDW Plt Count MPV Immature Gran % Neutrophils % Lymphocytes % Monocytes % Eosinophils % Basophils % Absolute Neutrophils Absolute Lymphocytes Absolute Monocytes Absolute Eosinophils Absolute Basophils RBC Morphology Polychromasia Hypochromasia Anisocytosis APTT Sodium Potassium 3.4 L Chloride Carbon Dioxide Anion Gap BUN Creatinine Estimated GFR/1.73 m2 Glucose Calcium Magnesium
[2020-02-04] MEDS: Heparin 5,000 UNITS/ML VIAL 5000 UNITS SC (17:30)
[2020-02-04] MEDS: Potassium Chloride 20 MEQ TABCR 40 MEQ PO (19:50)
[2020-02-04] MEDS: Amoxicillin 500/Clav. 125 TAB PO (19:50)
[2020-02-04] MEDS: LORazepam 0.5 MG TAB PO (19:59)
[2020-02-04] MEDS: Gabapentin 100 MG CAP PO (21:24)
[2020-02-04] MEDS: Mirtazapine 15 MG TAB PO (21:24)
[2020-02-04] MEDS: Prazosin 1 MG CAP 2 MG PO (21:24)
[2020-02-04] MEDS: Melatonin 3 MG TAB PO (21:24)
[2020-02-04 22:45] VITALS: BP 108/72; PULSE 77; RESP 18; TEMP 36.8; O2SAT 95
[2020-02-05] MEDS: Heparin 5,000 UNITS/ML VIAL 5000 UNITS SC ×2 (04:39→15:43)
[2020-02-05 07:29] LABS: Abs Immature Grans 0.03 k/cumm (0.0-0.09); Absolute Basophil Count 0.02 k/cumm (0.0-0.2); Absolute Lymphocyte Count 1.53 k/cumm (1.2-3.4); Absolute Monocyte Count 0.63 k/cumm (0.11-0.7); Absolute Neutrophil Count 7.76 k/cumm (1.2-6.7); Basophils % 0.2; HCT 29.4 % (36.0-46.0); HGB 9.3 g/dL (12.0-15.5); Immature Grans % 0.3 %; Mean Corp. HGB Concentration 31.6 g/dL (32.0-36.0); Mean Corpuscular Hemoglobin 26.5 pg (27.0-33.0); Mean Corpuscular Volume 83.8 fL (80-95); Mean Platelet Volume 8.9 fL (8.0-11.0); Monocytes % 6.2; Neutrophils % 76.3; Platelet Count 233 x1000/uL (130-400); RBC 3.51 m/cumm (4.00-5.20); White Blood Cell Count 10.17 k/cumm (4.4-10.8)
[2020-02-05 07:49] LABS: Anion Gap 7.7 mmol/L (3-11); BUN 30 mg/dL (7-18); CO2 30.3 mmol/L (21.0-32.0); CREATININE 2.32 mg/dL (0.55-1.02); Calcium 8.8 mg/dL (8.5-10.1); Chloride 97 mmol/L (98-107); Glucose 254 mg/dL (74-106); Magnesium 2.3 mg/dL (1.8-2.4); Potassium 3.8 mmol/L (3.5-5.1); Sodium 135 mmol/L (136-145)
[2020-02-05 07:55] VITALS: BP 120/74; PULSE 79; RESP 18; TEMP 36.4; O2SAT 92
[2020-02-05] MEDS: Insulin Aspart 300 UNITS/3 ML PEN SC ×4 (09:11→21:25)
[2020-02-05] MEDS: Amoxicillin 500/Clav. 125 TAB PO ×2 (09:12→20:50)
[2020-02-05] MEDS: Psyllium PKT 1 EACH PO (09:12)
[2020-02-05] MEDS: Lactobacillus Acidophilus CAP 1 CAP PO ×3 (09:12→20:50)
[2020-02-05] MEDS: Magnesium Oxide 400 MG TAB PO ×2 (09:12→20:50)
[2020-02-05] MEDS: Famotidine 20 MG TAB PO (09:13)
[2020-02-05] MEDS: Sertraline 50 MG TAB 150 MG PO (09:13)
[2020-02-05] MEDS: Potassium Chloride 20 MEQ TABCR 40 MEQ PO ×2 (09:13→20:50)
--- NOTE | 2020-02-05 10:58 | PT.INTREAT ---
Date of service: 02/05/20 Time of Service: 10:58 PT Notes Visit Reasons: SYNCOPAL EPISODE,JAIMEE,HYPOKALEMIA,?BBPV Inpatient Physical Therapy Treatment Note [facility] Date: 02/05/2020 PRECAUTIONS: Standard. Fall. Activity as tolerated. SUBJECTIVE: Pt reports that she is not feeling well today. OBJECTIVE: Long sitting in bed with head of bed at 30 degrees. IV line in R UE. PAIN: 0/10 [place]-Halpike Maneuver: Attempted another BPPV testing, however the pt was unable to assume the appropriate positioning due to increase in pain and dizziness. BED MOBILITY/TRANSFERS Rolling L/R: SBA Supine-sit: SBA Sit-supine: SBA Sit-stand: SBA Stand-sit: SBA Bed-Chair: SBA Chair-bed: SBA GAIT: Pt was able to ambulate 20 feet + 25 feet, full weight bearing, using a front-wheeled walker. SBA provided by the PT and PT student. Reciprocal, step through gait pattern. Pt required a seated rest break due to increases in dizziness, but notes that the dizziness is less than yesterday in which she was unable to sit up in bed. THEREX: Gaze stabilization interventions seated on the edge of the bed: vertical, horizontal, and diagonal the left and right. Required multiple rest breaks due to increases in dizziness. ASSESSMENT: Pt reports improvements in her dizziness. She demonstrates improvements in her dizziness exacerbation, as she was able to sit up on the edge of the bed to perform gaze stabilization interventions and ambulate in the directly after. She required multiple rest breaks while performing gaze stabilization interventions due to increased dizziness, however, was able to resume after resting. She would continue to benefit from skilled physical therapy at this time. PLAN: Continue with established POC. TREATMENT CODE/TIME: 63346 x 35 minutes beginning at 10:58 A.M. Morgan Palafox, SPT Doctor of Physical Therapy Student [facility] Supervision provided by Felicity Diaz PT, DPT, CLT [facility] [place], [place]
--- NOTE | 2020-02-05 10:58 | PT.INTREAT ---
Date of service: 02/05/20 Time of Service: 10:58 PT Notes Visit Reasons: SYNCOPAL EPISODE,JAIMEE,HYPOKALEMIA,?BBPV Inpatient Physical Therapy Treatment Note [facility] Date: 02/05/2020 PRECAUTIONS: Standard. Fall. Activity as tolerated. SUBJECTIVE: Pt reports that she is not feeling well today and continues to report dizziness but of lesser intensity. OBJECTIVE: Long sitting in bed with head of bed at 30 degrees. IV line in R UE. PAIN: 0/10 [place]-Halpike Maneuver: Attempted BPPV testing for the second time, however the pt was unable to assume the appropriate positioning due to increases in pain and dizziness. BED MOBILITY/TRANSFERS Rolling L/R: SBA Supine-sit: SBA Sit-supine: SBA Sit-stand: SBA Stand-sit: SBA Bed-Chair: SBA Chair-bed: SBA GAIT: Pt was able to ambulate 20 feet + 25 feet, full weight bearing, using a front-wheeled walker. SBA provided by the PT and PT student. Reciprocal, step through gait pattern. Pt required a seated rest break due to increases in dizziness, but notes that the dizziness is less than yesterday in which she was unable to sit up in bed. THEREX: Gaze stabilization interventions seated on the edge of the bed: vertical, horizontal, and diagonal the left and right. Required multiple rest breaks due to increases in dizziness. ASSESSMENT: Pt reports improvements in her dizziness. She demonstrates improvements in her dizziness exacerbation, as she was able to sit up on the edge of the bed to perform gaze stabilization interventions and ambulate in the directly after. She required multiple rest breaks while performing gaze stabilization interventions due to increased dizziness, however, was able to resume after resting. She would continue to benefit from skilled physical therapy at this time. PLAN: Continue with established POC. TREATMENT CODE/TIME: 97465 x35 minutes beginning at 10:58 A.M. Morgan Palafox, SPT Doctor of Physical Therapy Student [facility] Supervision provided by Felicity Diaz PT, DPT, CLT [facility] [place], [place]
[2020-02-05 11:12] VITALS: BP 110/68; PULSE 83; RESP 18; TEMP 36.8; O2SAT 95
--- NOTE | 2020-02-05 11:37 | DI.US_ITS ---
APPROVED REPORT EXAM: Comprehensive 2D, Doppler, and color-flow Echocardiogram Patient Location: In-Patient Room/Bed: 214A Resolution Manager: Monisha Colon RDCS (AE) Indications: Syncope, Murmur Conclusion Left Ventricle : The left ventricle is normal size. The left ventricular systolic function is normal . There is normal left ventricular wall thickness. There is normal LV segmental wall motion. The le ft ventricular diastolic function is normal. LVEF is 55-59%. Right Ventricle : Right ventricle is borderline dilated. Right ventricular function appears normal Atria : The left atrium size is normal. Right atrium is mildly dilated. Atrial septal aneurysm is pre sent. Aortic Valve : The Aortic valve is sclerotic. There is no aortic valvular stenosis. Mild aortic regur gitation. Mitral Valve : The mitral valve is normal in structure. Trace mitral regurgitation. No evidence of mi tral valve stenosis. Tricuspid Valve : The tricuspid valve is normal in structure. Mild tricuspid regurgitation. There is no tricuspid valve stenosis. Great Vessels : The IVC was not well visualized. Estimated RVSP is 25-30 mmHg. There is no prior echocardiogram available for comparison. Wall motion Left Ventricle The left ventricle is normal size. The left ventricular systolic function is normal. There is normal left ventricular wall thickness. There is normal LV segmental wall motion. The left ventricular diast olic function is normal. LVEF is 55-59%. Right Ventricle Right ventricle is borderline dilated. Right ventricular function appears normal Atria The left atrium size is normal. Right atrium is mildly dilated. Atrial septal aneurysm is present. Aortic Valve The Aortic valve is sclerotic. There is no aortic valvular stenosis. Mild aortic regurgitation. Mitral Valve The mitral valve is normal in structure. No evidence of mitral valve stenosis. Trace mitral regurgita tion. Tricuspid Valve The tricuspid valve is normal in structure. There is no tricuspid valve stenosis. Mild tricuspid regu rgitation. Pulmonic Valve Pulmonic valve is not well visualized. There is no pulmonic valvular stenosis. Trace pulmonic regurgi tation. Great Vessels The aortic root is normal in size. The ascending aorta is normal in size. Aortic arch is not well vis ualized. The IVC was not well visualized. Estimated RVSP is 25-30 mmHg. Pericardium There is no pericardial effusion. 2D Dimensions IVSD d PLAX 0.96 cm F: 0.6-1.0 LV Vol A2C d MOD 68.6 mL LVPW d PLAX 0.97 cm F: 0.6 - 1.0 LV Vol A4C d MOD 57.7 mL LVID d PLAX 4.26 cm F: 3.8 - 5.2 LA vol/ BSA A2C s A-L 24.6 mL/m2 LVDs 2.65 cm F: 2.2 - 3.5 LA vol/ BSA A4C s A-L 19.7 mL/m2 Ao Root d 2.74 cm F: 2.7 - 3.3 LA Vol/ BSA Biplane s A-L 22.9 mL/m2 RA Area A4C 14.70 cm2 LA Area A4C s MOD 15.64 cm2 RA Vol/ BSA A4C s A-L 18.8 mL/m2 LA Area A2C s MOD 16.85 cm2 Ao Asc Diam d 3.18 cm F: 2.3 - 3.1 LV EF A4C MOD 54.8 % LV EF Teichholz 67.6 % LV EF A2C MOD 61.9 % LVEF (Jenkins's) 57.01 % F: 54 - 74 LV EF Biplane MOD 57.0 % LV Volume 49.04 mL F: 46 - 106 LV Volume Index 26.22 mL/m2 F: 29 - 61 LV Vol Biplane MOD 63.9 mL FS 37.30 % LV Diastology MV E' medial 0.067 (>0.07 m/s) E/A Ratio 0.6 LV E/e MED 9.60 (<14) MV E Vmax 0.65 (0.4-1.3 m/s) MV E' lateral 0.082 (>0.1 m/s) MV A Vmax 1.00 (0.4-1.3 m/s) LV E/e LAT 7.90 (<14) MV E/A Ratio 0.65 MV E/E' medial 9.64 MV E/E' lateral 7.91 Aortic Valve LVOT Area 2.61 cm2 AoV Area Vmax 1.90 cm2 LVOT Vmax 1.25 m/s AoV Area/ BSA (Vmax) 1.02 cm2/m2 LVOT Mean Frank. 0.78 m/s BECKIE Mean Frank. 1.65 cm2 LVOT Peak Grad 6.3 mmHg BECKIE Mean Frank. Index 0.88 cm2/m2 LVOT Mean Grad 2.9 mmHg AR DT 2449 msec LVOT VTI 0.220 m AR PHT 710 msec LVOT Diam s 1.80 cm (M/F) 1.5-2.5 AoV Vmax 1.72 (0.5-1.3 m/s) Velocity Ratio 0.72 AoV Mean Frank. 1.23 m/s AoV Peak Grad 11.8 mmHg LVOT SV 57.35 mL AoV Mean Grad 6.6 (<5 mmHg) AoV VTI 0.303 (0.18-0.25 m) AoV Area VTI 1.89 (2.5-4.5 cm2) AoV Area/ BSA (VTI) 1.01 cm/m2 Mitral Valve MV DT 271 (160-240 msec) MV PHT 79 msec MV Area PHT 2.79 cm2 Pulmonary Valve PV Vmax 1.22 (0.5-1.5 m/s) RVOT Peak Gr. 2.14 mmHg PV Peak Grad 5.9 mmHg RVOT Mean Gr. 1.05 mmHg PV Mean Grad 3.2 mmHg RVOT VTI 0.138 m PV VTI 0.210 m RVOT Vmax 0.73 m/s Tricuspid Valve TR Peak Grad 27.3 mmHg TR Vmax 2.62 m/s RVSP (TR) 30.4 mmHg
[2020-02-05] MEDS: Insulin Glargine 300 UNITS/3 ML PEN 20 UNITS SC (12:41)
--- NOTE | 2020-02-05 15:07 | W.PM.PROGNOT ---
Date of Service Date of service: 02/05/20 Time of Service: 15:07 Assessment and Plan Assessment and plan (1) Dizziness: Status: Acute Assessment and plan: Multifactorial - due to Vertigo, dehydration. No obvious valvular issue to explain the murmur I am hearing; does have an atrial septal aneurysm. Will gently hydrate overnight; continue working with PT for vestibular therapy. Continue prn meclizine. (2) Suspected pulmonary embolism: Status: Ruled-out Assessment and plan: Continue prophylactic dosing of heparin. (3) Syncope: Status: Acute Assessment and plan: No arrhythmic events on tele to explain syncope. No valvular issue on echo. Septal atrial aneurysm will need to be followed up, but I doubt that it contributed to dizziness/syncope. Will give 1 more L of NS @ 75 cc / hr Ruled out for ACS. (4) Lower extremity edema: Status: Chronic Assessment and plan: We ruled out DVTs. Mild pulmonary hypertension on echo. Would benefit form a sleep study as outpatient. For now, benefits of IVF would outweigh risks. EF on MPI from 08/26/19: 75%. (5) Acute hypokalemia: Status: Resolved Assessment and plan: Recheck in am. (6) Hypomagnesemia: Status: Resolved Assessment and plan: Recheck in am. (7) Leucocytosis: Status: Resolved Assessment and plan: ?sinusitis - continue augmentin. (8) Atrial septal aneurysm: Status: Acute Assessment and plan: Will need outpatient follow up. (9) DVT prophylaxis: Status: Acute Assessment and plan: heparin sc. (10) Discharge planning issues: Status: Acute Assessment and plan: Full code. Subjective Subjective Interval history since last seen: Ms Zhu states she is less dizzy today, but continues to express having both types of dizziness - when looking to the right and when trying to get up. Overall, all of this is much better. Denies chest pain, shortness of breath, nausea, headache. Reports feeling thirsty. Exam Narrative Exam Narrative: General: Obese female, laying comfortably in bed, A&Ox3, answering questions appropriately, looks more comfortable turning to right today than yesterday HEENT: Visibly atraumatic/normocephalic, MMM Cardiovascular: RRR, +KRISTA Lungs: crackles at B bases Gastrointestinal: soft, nontender, nondistended Extremities: +1 edema BLE's, RLE wound on tibial surface - not infected Objective Objective Clinical Data: Abnormal lab results 02/05/20 02/05/20 Range/Units 07:03 07:03 RBC 3.51 L (4.00-5.20) m/cumm Hgb 9.3 L (12.0-15.5) g/dL Hct 29.4 L (36.0-46.0) % MCH 26.5 L (27.0-33.0) pg MCHC 31.6 L (32.0-36.0) g/dL RDW 16.0 H (11.7-14.6) % Absolute Neutrophils 7.76 H (1.2-6.7) k/cumm Sodium 135 L (136-145) mmol/L Chloride 97 L (98-107) mmol/L BUN 30 H (7-18) mg/dL Creatinine 2.32 H (0.55-1.02) mg/dL Glucose 254 H (74-106) mg/dL Vital Signs Temperature 36.8 C 02/05/20 11:12 Temperature Source Tympanic 02/05/20 11:12 Pulse 83 02/05/20 11:12 Pulse Rhythm Regular 02/05/20 13:13 Pulse 90 02/03/20 10:50 Respiratory Rate 18 02/05/20 11:12 Respiratory Effort 02/05/20 13:13 Respiratory Depth Normal 02/05/20 13:13 Respiratory Pattern Normal 02/05/20 13:13 Blood Pressure 110/68 02/05/20 11:12 Blood Pressure Mean 77 02/03/20 10:49 Blood Pressure Position Supine 02/03/20 07:29 Pulse Oximetry 95 02/05/20 11:12 Oxygen Delivery Method Room Air 02/05/20 11:12 Oxygen Flow Rate 0 02/05/20 11:12 Pain Level 0 02/05/20 11:12 Intake & Output 02/04/20 02/05/20 02/05/20 23:59 11:59 23:59 Intake Total 2129 / 2721.892 240 / 720 480 / 720 Output Total 550 / 1350 200 / 200 Balance 1579 / 1371.892 40 / 520 480 / 520 Weight 85.1 kg Intake: IV 1000 / 1112.892 Oral 1129 / 1609 240 / 720 480 / 720 Output: Urine 550 / 1350 200 / 200 Other: Urine Color Yellow Yellow Urine Appearance Clear Clear Urine Odor Normal Voiding Methods Toilet Toilet Toilet Laboratory Results WBC 10.17 k/cumm (4.4-10.8) 02/05/20 07:03 RBC 3.51 m/cumm (4.00-5.20) L 02/05/20 07:03 Hgb 9.3 g/dL (12.0-15.5) L 02/05/20 07:03 Hct 29.4 % (36.0-46.0) L 02/05/20 07:03 MCV 83.8 fL (80-95) 02/05/20 07:03 MCH 26.5 pg (27.0-33.0) L 02/05/20 07:03 MCHC 31.6 g/dL (32.0-36.0) L 02/05/20 07:03 RDW 16.0 % (11.7-14.6) H 02/05/20 07:03 Plt Count 233 x1000/uL (130-400) 02/05/20 07:03 MPV 8.9 fL (8.0-11.0) 02/05/20 07:03 Immature Gran % 0.3 % 02/05/20 07:03 Neutrophils % 76.3 02/05/20 07:03 Lymphocytes % 15.0 02/05/20 07:03 Monocytes % 6.2 02/05/20 07:03 Eosinophils % 2.0 02/05/20 07:03 Basophils % 0.2 02/05/20 07:03 Absolute Neutrophils 7.76 k/cumm (1.2-6.7) H 02/05/20 07:03 Absolute Lymphocytes 1.53 k/cumm (1.2-3.4) 02/05/20 07:03 Absolute Monocytes 0.63 k/cumm (0.11-0.7) 02/05/20 07:03 Absolute Eosinophils 0.20 k/cumm (0.0-0.7) 02/05/20 07:03 Absolute Basophils 0.02 k/cumm (0.0-0.2) 02/05/20 07:03 RBC Morphology See below 02/04/20 05:20 Polychromasia Present 02/04/20 05:20 Hypochromasia 2+ 02/04/20 05:20 Anisocytosis 1+ 02/04/20 05:20 PT 10.2 sec (9.3-11.0) 02/03/20 08:50 INR 1.0 (0.9-1.1) 02/03/20 08:50 APTT 41.2 sec (21.0-31.4) H 02/04/20 05:20 D-Dimer 5140 ng/mlFEU (<500) H 02/03/20 08:50 Sodium 135 mmol/L (136-145) L 02/05/20 07:03 Potassium 3.8 mmol/L (3.5-5.1) 02/05/20 07:03 Chloride 97 mmol/L (98-107) L 02/05/20 07:03 Carbon Dioxide 30.3 mmol/L (21.0-32.0) 02/05/20 07:03 Anion Gap 7.7 mmol/L (3-11) 02/05/20 07:03 BUN 30 mg/dL (7-18) H 02/05/20 07:03 Creatinine 2.32 mg/dL (0.55-1.02) H 02/05/20 07:03 Estimated GFR/1.73 m2 20.10 (mL/min/1.73m2) 02/05/20 07:03 Glucose 254 mg/dL (74-106) H 02/05/20 07:03 Calcium 8.8 mg/dL (8.5-10.1) 02/05/20 07:03 Magnesium 2.3 mg/dL (1.8-2.4) 02/05/20 07:03 Total Bilirubin 0.9 mg/dL (0.2-1.0) 02/03/20 08:50 AST 12 U/L (15-37) L 02/03/20 08:50 ALT 13 U/L (14-59) L 02/03/20 08:50 Alkaline Phosphatase 88 U/L (46-116) 02/03/20 08:50 Creatine Kinase 49 U/L (26-192) 02/03/20 14:45 Troponin I < 0.05 ng/Ml (<0.06) 02/03/20 14:45 NT-Pro-B Natriuret Pep 992 pg/mL (<300) H 02/03/20 08:50 Total Protein 7.2 g/dL (6.4-8.2) 02/03/20 08:50 Albumin 3.4 g/dL (3.4-5.0) 02/03/20 08:50 Procalcitonin 0.2 ng/mL 02/03/20 14:45 Urine Color Yellow (Yellow) 02/03/20 10:22 Urine Clarity Clear (Clear) 02/03/20 10:22 Urine pH 5.5 (5-8) 02/03/20 10:22 Ur Specific [place] 1.020 (1.005-1.025) 02/03/20 10:22 Urine Protein 30 mg/dL (Negative) H 02/03/20 10:22 Urine Ketones Negative mg/dL (Negative) 02/03/20 10:22 Urine Blood Negative (Negative) 02/03/20 10:22 Urine Nitrite Negative (Negative) 02/03/20 10:22 Urine Bilirubin Negative (Negative) 02/03/20 10:22 Urine Urobilinogen 0.2 EU/dL (Up TO 0.2) 02/03/20 10:22 Ur Leukocyte Esterase Negative (Negative) 02/03/20 10:22 Urine RBC 0-2 HPF (0-2) 02/03/20 10:22 Urine WBC 5-10 HPF (0-5) 02/03/20 10:22 Ur Epithelial Cells Few HPF (Negative) 02/03/20 10:22 Urine Crystals Negative HPF (Negative) 02/03/20 10:22 Urine Bacteria Moderate HPF (Negative) 02/03/20 10:22 Urine Casts Comment LPF (Negative) 02/03/20 10:22 Urine Mucus Negative (Negative) 02/03/20 10:22 Urine Other Few renal (Negative) 02/03/20 10:22 Ur Culture Indicated? Yes 02/03/20 10:22 Urine Glucose Negative mg/dL (Negative) 02/03/20 10:22 Echo; Left Ventricle : The left ventricle is normal size. The left ventricular systolic function is normal. There is normal left ventricular wall thickness. There is normal LV segmental wall motion. The left ventricular diastolic function is normal. LVEF is 55-59%. Right Ventricle : Right ventricle is borderline dilated. Right ventricular function appears normal Atria : The left atrium size is normal. Right atrium is mildly dilated. Atrial septal aneurysm is present. Aortic Valve : The Aortic valve is sclerotic. There is no aortic valvular stenosis. Mild aortic regurgitation. Mitral Valve : The mitral valve is normal in structure. Trace mitral regurgitation. No evidence of mitral valve stenosis. Tricuspid Valve : The tricuspid valve is normal in structure. Mild tricuspid regurgitation. There is no tricuspid valve stenosis. Great Vessels : The IVC was not well visualized. Estimated RVSP is 25-30 mmHg. There is no prior echocardiogram available for comparison.
[2020-02-05 15:40] VITALS: BP 110/69; PULSE 77; RESP 20; TEMP 36.6; O2SAT 95
[2020-02-05] MEDS: Normal Saline 1,000 ML 75 ML IV (15:43)
--- NOTE | 2020-02-05 15:57 | PDOC.CMPRO ---
- If Service Date Differs Date of service: 02/05/20 Time of Service: 15:57 Care Management Progress Note S/O: Alyssa was sitting up in her bed when CM met with her. She reported that she was still feeling dizzy today, but overall she is comfortable. She stated that she had testing done today and was awaiting the results. CM will continue to follow. A: Alyssa is an 84 year old male admitted to [facility] on 02/03/20 for Syncopal episode, JAIMEE, hypokalemia. P: Anticipate Alyssa will return home vs SNF placement, determined by further evaluation, once medically cleared. She will transport via [facility], coordinated by CM. She will follow up with her PCP and Palliative. She will resume her HH RN, if home. CM will continue to follow.
--- NOTE | 2020-02-05 17:34 | PT.INNT ---
Date of service: 02/05/20 Time of Service: 13:04 PT Notes Visit Reasons: SYNCOPAL EPISODE,JAIMEE,HYPOKALEMIA,?BBPV Patient refused to be seen for the second session this afternoon stating that she got very much fatigued and dizzy with the CT testing she had alittle while ago. She said to try again later this afternoon. Patient was seen again in the afternoon but was unavailable due to wound consult with wound nurse Xander. Will plan on seeing patient tomorrow morning for her next Pt session.
--- NOTE | 2020-02-05 18:26 | NUR.NOTE ---
Nursing Note: As part of the wound assessment, patient ws given education r/t off loading pressure on her coccyx, to assist with healing her PI. Patient stated understanding, and was going to use a pillow to help with positioning herself on her side.
--- NOTE | 2020-02-05 19:01 | WOUNDCONS_ITS ---
Wound Initial Evaluation Narrative: Patient is an [age] year old female patient, being seen here for syncope, JAIMEE, Hypokalemia, H&P, allergies, and pertinent labs associated with this wound were reviewed - Wound Lumbar/Sacral Wound Type: Pressure Ulcer Pressure Ulcer Stage: II Wound General Appearance: Reddened Wound Bed Greatest Portion: Pale Minier Wound Bed Lesser Portion: Red (Granulation) Wound Surrounding Tissue Appearance: Dark Red, Normal/Healthy Percent of Wound Bed Granulated/Red: 10 Wound Length: 0 in (0.5 cm) Wound Width: 0 in (0.5 cm) Wound Depth: 0 in (0.1 cm) Wound Drainage Amount: None Wound Drainage Odor: None/Absent Wound Drainage Description: No drainage Wound Topical Solution/Irrigant: Saline Irrigant Wound Debridement Method: Mechanical Wound Debridement Result: Healthy Tissue Revealed Wound Debridement Amount of Tissue Removed: None - Circulation, Sensation, Motion Edema Degree: 1+ Peripheral Pulse Strength: Normal Capillary Refill: Less than 3 seconds Sensation Description: [place], Pain (patient was c/o of burning and pain with legs elevated) Skin Temperature: Warm Skin Color: Pale (moisés not indiated) - Pain Pain Level: 4 (patient stated relief when legs were dependant) Pain Scale Used: Visual Analog Scale 0-10 Pain Description: Burning Pain Duration/Frequency: Occasional Small PI on the coccyx, non-blanching, sarita wound skin is dark red but blanching - Treatment/Dressing Change Topicals/Ointments: None Cleanse With: Cleanser with Surfactant Dressing Types: Mepilex w/Border Dressing Comment: Cleanse with skintegrity, then pat dry. Apply skin prep to the sarita wound skin, allow to dry. Cover with mepilex. change every 7 days or PRN if soiled or dislodged. - Recomendation Recomendation:: Cleanse with skintegrity, then pat dry. Apply skin prep to the sarita wound skin, allow to dry. Cover with mepilex. change every 7 days or PRN if soiled or dislodged. Physcian/Nurse Practioner Notified: Yes (Dr. Sierra Pierre) Treatment Time - Time Total Time Spent with Patient: 30 minutes - Patient Will be Seen Weekly Treatment: 1x/wk - For: For:: 2 weeks (measure in 1 week)
[2020-02-05 19:08] VITALS: BP 117/70; PULSE 84; RESP 19; TEMP 37.2; O2SAT 93
[2020-02-05] MEDS: Melatonin 3 MG TAB PO (20:51)
[2020-02-05] MEDS: Mirtazapine 15 MG TAB PO (20:51)
[2020-02-05] MEDS: Prazosin 1 MG CAP 2 MG PO (20:51)
[2020-02-05] MEDS: Gabapentin 100 MG CAP PO (20:54)
[2020-02-05] MEDS: Acetaminophen 325 MG TAB 650 MG PO (21:45)
[2020-02-05 23:30] VITALS: BP 98/59; PULSE 76; RESP 18; TEMP 36.9; O2SAT 94
[2020-02-06] MEDS: Heparin 5,000 UNITS/ML VIAL 5000 UNITS SC ×2 (03:47→15:58)
[2020-02-06 04:15] VITALS: BP 134/77; PULSE 73; RESP 16; TEMP 36.5; O2SAT 96
[2020-02-06 07:11] LABS: Abs Immature Grans 0.03 k/cumm (0.0-0.09); Absolute Basophil Count 0.03 k/cumm (0.0-0.2); Absolute Eosinophil Count 0.24 k/cumm (0.0-0.7); Absolute Lymphocyte Count 1.78 k/cumm (1.2-3.4); Absolute Neutrophil Count 5.01 k/cumm (1.2-6.7); Basophils % 0.4; Eosinophils % 3.1; HCT 28.1 % (36.0-46.0); HGB 8.8 g/dL (12.0-15.5); Immature Grans % 0.4 %; Lymphocytes % 23.1; Mean Corp. HGB Concentration 31.3 g/dL (32.0-36.0); Mean Corpuscular Hemoglobin 26.7 pg (27.0-33.0); Mean Corpuscular Volume 85.2 fL (80-95); Mean Platelet Volume 8.9 fL (8.0-11.0); Monocytes % 7.8; Neutrophils % 65.2; Platelet Count 224 x1000/uL (130-400); RBC Distribution Width 16.4 % (11.7-14.6); White Blood Cell Count 7.69 k/cumm (4.4-10.8)
[2020-02-06 07:30] VITALS: BP 145/63; PULSE 77; RESP 18; TEMP 36.6; O2SAT 95
[2020-02-06 07:39] LABS: Anion Gap 7.4 mmol/L (3-11); BUN 28 mg/dL (7-18); CO2 29.6 mmol/L (21.0-32.0); CREATININE 2.35 mg/dL (0.55-1.02); Calcium 8.1 mg/dL (8.5-10.1); Chloride 102 mmol/L (98-107); Glucose 171 mg/dL (74-106); Magnesium 2.2 mg/dL (1.8-2.4); Potassium 4.6 mmol/L (3.5-5.1); Sodium 139 mmol/L (136-145)
[2020-02-06] MEDS: Psyllium PKT 1 EACH PO (09:39)
[2020-02-06] MEDS: Sertraline 50 MG TAB 150 MG PO (09:40)
[2020-02-06] MEDS: Lactobacillus Acidophilus CAP 1 CAP PO ×3 (09:40→19:43)
[2020-02-06] MEDS: Amoxicillin 500/Clav. 125 TAB PO ×2 (09:40→19:44)
[2020-02-06] MEDS: Potassium Chloride 20 MEQ TABCR 40 MEQ PO ×2 (09:40→19:44)
[2020-02-06] MEDS: Magnesium Oxide 400 MG TAB PO ×2 (09:40→19:43)
[2020-02-06] MEDS: Famotidine 20 MG TAB PO (09:40)
[2020-02-06] MEDS: Insulin Aspart 300 UNITS/3 ML PEN SC ×4 (09:40→21:48)
[2020-02-06] MEDS: Donepezil 5 MG TAB 10 MG PO (09:42)
--- NOTE | 2020-02-06 10:22 | PHA.ADMREV ---
Pharmacy Clinical Review - Admission Clinical Review (Last Reviewed 02/04/20 @ 20:28 by Shasta Tapia MD) Atrial septal aneurysm (Acute) Acute renal failure (Acute) Discharge planning issues (Acute) DVT prophylaxis (Acute) Syncope (Acute) Dizziness (Acute) iodine Allergy (Unknown, Unverified 02/03/20 07:43) Height 5 ft 2 in Weight 86.2 kg - Renal Dosing Renal Dosing: BUN 28 mg/dL (7-18) H 02/06/20 06:38 Creatinine 2.35 mg/dL (0.55-1.02) H 02/06/20 06:38 Medications needing adjustments: Reviewed (CRCL ~15ML/MIN MEDS OK) - Anticoagulation Anticoagulation: Hgb 8.8 g/dL (12.0-15.5) L 02/06/20 06:38 Hct 28.1 % (36.0-46.0) L 02/06/20 06:38 Plt Count 224 x1000/uL (130-400) 02/06/20 06:38 INR 1.0 (0.9-1.1) 02/03/20 08:50 Creatinine 2.35 mg/dL (0.55-1.02) H 02/06/20 06:38 Medications: Heparin Therapeutic Anticoagulation: N/A - Opiate Usage Evaluate Pain Scale/Pains Meds: N/A - Relevant Labs Sodium 139 mmol/L (136-145) 02/06/20 06:38 Potassium 4.6 mmol/L (3.5-5.1) D 02/06/20 06:38 Chloride 102 mmol/L (98-107) 02/06/20 06:38 Magnesium 2.2 mg/dL (1.8-2.4) 02/06/20 06:38 Electrolytes, C-Reactive P, ESR: Reviewed - Antimicrobial Stewardship Antibiotic appropriateness: N/A Surgical Abx d/c within 24 hr: N/A Culture review/Resistance: Reviewed (FLU NEG, UC LESS THAN 10,000COL/ML ANÍBAL) - DM Control DM Control: Glucose 171 mg/dL (74-106) H D 02/06/20 06:38 Finger Stick Blood Glucose 164 Finger Stick Blood Glucose 164 Insulin Dosing: Reviewed - Heart Failure/LA Heart Failure/LA: Troponin I < 0.05 ng/Ml (<0.06) 02/03/20 14:45 NT-Pro-B Natriuret Pep 992 pg/mL (<300) H 02/03/20 08:50 EF%, EDILIA's, B-Blockers, Diuretics: N/A - BP Control BP Control: Blood Pressure 145/63 Blood Pressure 134/77 Blood Pressure 98/59 If elevated: N/A - QTc Review If Elevated: Reviewed (476, FAMOTIDINE, ONDANSETRON, MIRTAZEPINE, DONEPEZIL,SERTRALINE (ALL FROM HOME MED LIST EXCEPT FAMOTIDINE REPLACING PANTOPRAZOLE)) - IV to PO Switch IV Medications: Reviewed (ABX PO) - Home Meds Home Med List reviewed: Reviewed - Current meds Current Medication Order Review: Reviewed
[2020-02-06 12:00] VITALS: BP 138/60; PULSE 70; RESP 18; TEMP 36.8; O2SAT 96
--- NOTE | 2020-02-06 12:07 | PT.INTREAT ---
PT Notes Visit Reasons: SYNCOPAL EPISODE,JAIMEE,HYPOKALEMIA,?BBPV Inpatient Physical Therapy Treatment Note [facility] Date: 02/06/20 PRECAUTIONS:Fall/ Standard SUBJECTIVE: Pt reports that she is still experiencing dizziness and it seems to be in her eyes. OBJECTIVE: Supine-sit: SBA Sit-stand: SBA Stand-sit: SBA GAIT Assistive Device: FWW Weight bearing: Full Assist: SBA Distance: amb in room and to the bathroom as per rashid to fatigue. Pt did require a seated rest due to dizziness. THEREX: Pt completed UE and LE ther ex as per flow sheet. ASSESSMENT: Pt tolerated today's session fairly well she was motivated and would be able to accomplish more I think if her dizziness was better. PLAN: Cont as per PT POC. TREATMENT CODE/TIME: 11:30-11:45 (15) TA
--- NOTE | 2020-02-06 12:18 | PDOC.CMPRO ---
Care Management Progress Note S/O: Alyssa remains inpatient at this time, she continues to work with PT and is monitored on telemetry. CM continues to follow. A: Alyssa is an 84 year old male admitted to [facility] on 02/03/20 for Syncopal episode, JAIMEE, hypokalemia. P: Anticipate Alyssa will return home vs SNF placement, determined by further evaluation, once medically cleared. She will transport via [facility], coordinated by CM. She will follow up with her PCP and Palliative Care. If Alyssa does return home she will resume VNA RN (weekly dressing changes) with an addition of PT/OT/WINDOWS DEPLOYMENT TECHNICIAN. CM continues to follow.
[2020-02-06] MEDS: Insulin Glargine 300 UNITS/3 ML PEN 20 UNITS SC (12:49)
--- NOTE | 2020-02-06 12:58 | PGE_ITS ---
Date of Service Date of service: 02/06/20 Time of Service: 13:01 Assessment and Plan Assessment and plan (1) Dizziness: Start date: 02/06/20 Start time: 13:29 Status: Acute Assessment and plan: Multifactorial - due to Vertigo, dehydration. atrial septal aneurysm. Will gently hydrate overnight; continue working with PT for vestibular therapy. Continue prn meclizine. Imaging negative for DVT, Hemorrhage, stroke (2) Suspected pulmonary embolism: Start date: 02/06/20 Start time: 13:31 Status: Ruled-out Assessment and plan: R/o, negative vq scan and u/s lower extremities, continue subcu heparin for prophylaxis (3) Syncope: Start date: 02/06/20 Start time: 13:34 Status: Acute Assessment and plan: No arrhythmic events on tele to explain syncope. No valvular issue on echo. No CHF on echo Ruled out for ACS. (4) Lower extremity edema: Start date: 02/06/20 Start time: 13:34 Status: Chronic Assessment and plan: We ruled out DVTs. Mild pulmonary hypertension on echo. Would benefit form a sleep study as outpatient. IVF finished. TEDs to help with edema EF by echo 55-59%. (5) Acute hypokalemia: Start date: 02/06/20 Start time: 13:35 Status: Resolved Assessment and plan: Resolved. Continue to monitor. (6) Hypomagnesemia: Start date: 02/06/20 Start time: 13:36 Status: Resolved Assessment and plan: Resolved. (7) Leucocytosis: Start date: 02/06/20 Start time: 13:36 Status: Resolved Assessment and plan: Resolved. Brain MRI with ? sinusitis, started on augmentin. Leukocytosis resolved. Continue to monitor. (8) Atrial septal aneurysm: Start date: 02/06/20 Start time: 13:37 Status: Acute Assessment and plan: Will need outpatient follow up. (9) DVT prophylaxis: Start date: 02/06/20 Start time: 13:37 Status: Acute Assessment and plan: heparin sc. (10) Discharge planning issues: Start date: 02/06/20 Start time: 13:37 Status: Acute Assessment and plan: Full code. above case discussed with Dr. Gleason who is in agreement. Subjective Subjective Patient reports: other Interval history since last seen: Continues to complain of dizziness with ocular components today. This however did not affect her gait or balance when ambulating with PT. BUN creatinine continues to remain elevated. We have modified some medications in hopes that it will help with dizziness. Trend BMP/ renal function consider discharging patient if creatinine stable and follow up as an outpatient. She denies CP, SOB, N/V/D Exam Narrative Exam Narrative: General: Obese female, sitting up in bed, A&Ox3, answering questions appropriately, looks comfortable. HEENT: Visibly atraumatic/normocephalic, MMM Cardiovascular: RRR, +KRISTA Lungs: crackles at B bases Gastrointestinal: soft, nontender, nondistended Extremities: +2 edema BLE's, RLE wound on tibial surface - not infected Objective Objective Clinical Data: Abnormal lab results 02/06/20 02/06/20 Range/Units 06:38 06:38 RBC 3.30 L (4.00-5.20) m/cumm Hgb 8.8 L (12.0-15.5) g/dL Hct 28.1 L (36.0-46.0) % MCH 26.7 L (27.0-33.0) pg MCHC 31.3 L (32.0-36.0) g/dL RDW 16.4 H (11.7-14.6) % BUN 28 H (7-18) mg/dL Creatinine 2.35 H (0.55-1.02) mg/dL Glucose 171 H D (74-106) mg/dL Calcium 8.1 L (8.5-10.1) mg/dL Vital Signs Temperature 36.6 C 02/06/20 07:30 Temperature Source Tympanic 02/06/20 07:30 Pulse 77 02/06/20 07:30 Pulse Rhythm Regular 02/06/20 09:45 Pulse 90 02/03/20 10:50 Respiratory Rate 18 02/06/20 07:30 Respiratory Effort Non-Labored 02/06/20 09:45 Respiratory Depth Normal 02/06/20 09:45 Respiratory Pattern Normal 02/06/20 09:45 Blood Pressure 145/63 H 02/06/20 07:30 Blood Pressure Mean 77 02/03/20 10:49 Blood Pressure Position Supine 02/03/20 07:29 Pulse Oximetry 95 02/06/20 07:30 Oxygen Delivery Method Room Air 02/06/20 07:30 Oxygen Flow Rate 0 02/06/20 07:30 Pain Level 0 02/06/20 07:30 Comment 02/05/20 23:30 Intake & Output 02/05/20 02/06/20 02/06/20 23:59 11:59 23:59 Intake Total 730 / 970 1000 / 1000 Output Total 375 / 575 Balance 355 / 395 1000 / 1000 Weight 86.2 kg Intake: IV 1000 / 1000 Oral 730 / 970 Output: Urine 375 / 575 Other: Urine Color Yellow Yellow Urine Appearance Clear Clear Voiding Methods Bedside Commode Toilet Laboratory Results WBC 7.69 k/cumm (4.4-10.8) 02/06/20 06:38 RBC 3.30 m/cumm (4.00-5.20) L 02/06/20 06:38 Hgb 8.8 g/dL (12.0-15.5) L 02/06/20 06:38 Hct 28.1 % (36.0-46.0) L 02/06/20 06:38 MCV 85.2 fL (80-95) 02/06/20 06:38 MCH 26.7 pg (27.0-33.0) L 02/06/20 06:38 MCHC 31.3 g/dL (32.0-36.0) L 02/06/20 06:38 RDW 16.4 % (11.7-14.6) H 02/06/20 06:38 Plt Count 224 x1000/uL (130-400) 02/06/20 06:38 MPV 8.9 fL (8.0-11.0) 02/06/20 06:38 Immature Gran % 0.4 % 02/06/20 06:38 Neutrophils % 65.2 02/06/20 06:38 Lymphocytes % 23.1 02/06/20 06:38 Monocytes % 7.8 02/06/20 06:38 Eosinophils % 3.1 02/06/20 06:38 Basophils % 0.4 02/06/20 06:38 Absolute Neutrophils 5.01 k/cumm (1.2-6.7) 02/06/20 06:38 Absolute Lymphocytes 1.78 k/cumm (1.2-3.4) 02/06/20 06:38 Absolute Monocytes 0.60 k/cumm (0.11-0.7) 02/06/20 06:38 Absolute Eosinophils 0.24 k/cumm (0.0-0.7) 02/06/20 06:38 Absolute Basophils 0.03 k/cumm (0.0-0.2) 02/06/20 06:38 RBC Morphology See below 02/04/20 05:20 Polychromasia Present 02/04/20 05:20 Hypochromasia 2+ 02/04/20 05:20 Anisocytosis 1+ 02/04/20 05:20 PT 10.2 sec (9.3-11.0) 02/03/20 08:50 INR 1.0 (0.9-1.1) 02/03/20 08:50 APTT 41.2 sec (21.0-31.4) H 02/04/20 05:20 D-Dimer 5140 ng/mlFEU (<500) H 02/03/20 08:50 Sodium 139 mmol/L (136-145) 02/06/20 06:38 Potassium 4.6 mmol/L (3.5-5.1) D 02/06/20 06:38 Chloride 102 mmol/L (98-107) 02/06/20 06:38 Carbon Dioxide 29.6 mmol/L (21.0-32.0) 02/06/20 06:38 Anion Gap 7.4 mmol/L (3-11) 02/06/20 06:38 BUN 28 mg/dL (7-18) H 02/06/20 06:38 Creatinine 2.35 mg/dL (0.55-1.02) H 02/06/20 06:38 Estimated GFR/1.73 m2 19.80 (mL/min/1.73m2) 02/06/20 06:38 Glucose 171 mg/dL (74-106) H D 02/06/20 06:38 Calcium 8.1 mg/dL (8.5-10.1) L 02/06/20 06:38 Magnesium 2.2 mg/dL (1.8-2.4) 02/06/20 06:38 Total Bilirubin 0.9 mg/dL (0.2-1.0) 02/03/20 08:50 AST 12 U/L (15-37) L 02/03/20 08:50 ALT 13 U/L (14-59) L 02/03/20 08:50 Alkaline Phosphatase 88 U/L (46-116) 02/03/20 08:50 Creatine Kinase 49 U/L (26-192) 02/03/20 14:45 Troponin I < 0.05 ng/Ml (<0.06) 02/03/20 14:45 NT-Pro-B Natriuret Pep 992 pg/mL (<300) H 02/03/20 08:50 Total Protein 7.2 g/dL (6.4-8.2) 02/03/20 08:50 Albumin 3.4 g/dL (3.4-5.0) 02/03/20 08:50 Procalcitonin 0.2 ng/mL 02/03/20 14:45 Urine Color Yellow (Yellow) 02/03/20 10:22 Urine Clarity Clear (Clear) 02/03/20 10:22 Urine pH 5.5 (5-8) 02/03/20 10:22 Ur Specific [place] 1.020 (1.005-1.025) 02/03/20 10:22 Urine Protein 30 mg/dL (Negative) H 02/03/20 10:22 Urine Ketones Negative mg/dL (Negative) 02/03/20 10:22 Urine Blood Negative (Negative) 02/03/20 10:22 Urine Nitrite Negative (Negative) 02/03/20 10:22 Urine Bilirubin Negative (Negative) 02/03/20 10:22 Urine Urobilinogen 0.2 EU/dL (Up TO 0.2) 02/03/20 10:22 Ur Leukocyte Esterase Negative (Negative) 02/03/20 10:22 Urine RBC 0-2 HPF (0-2) 02/03/20 10:22 Urine WBC 5-10 HPF (0-5) 02/03/20 10:22 Ur Epithelial Cells Few HPF (Negative) 02/03/20 10:22 Urine Crystals Negative HPF (Negative) 02/03/20 10:22 Urine Bacteria Moderate HPF (Negative) 02/03/20 10:22 Urine Casts Comment LPF (Negative) 02/03/20 10:22 Urine Mucus Negative (Negative) 02/03/20 10:22 Urine Other Few renal (Negative) 02/03/20 10:22 Ur Culture Indicated? Yes 02/03/20 10:22 Urine Glucose Negative mg/dL (Negative) 02/03/20 10:22
[2020-02-06 15:33] VITALS: BP 100/56; PULSE 74; RESP 18; TEMP 36.9; O2SAT 96
[2020-02-06 19:28] VITALS: BP 100/59; PULSE 75; RESP 18; TEMP 37; O2SAT 97
[2020-02-06] MEDS: Mirtazapine 15 MG TAB PO (21:47)
[2020-02-06] MEDS: Prazosin 1 MG CAP PO (21:47)
[2020-02-06] MEDS: Melatonin 3 MG TAB PO (21:47)
[2020-02-06] MEDS: Normal Saline Flush 10 ML SYR IVP (21:47)
[2020-02-06 23:17] VITALS: BP 108/65; PULSE 75; RESP 18; TEMP 36.4; O2SAT 94
[2020-02-07] VITALS (7 sets, daily range): BP systolic 104–117; BP diastolic 61–74; PULSE 68–75; RESP 17–20; TEMP 36.7–37.6; O2SAT 94–96
[2020-02-07 07:06] LABS: HCT 28.1 % (36.0-46.0); HGB 8.8 g/dL (12.0-15.5); Mean Corp. HGB Concentration 31.3 g/dL (32.0-36.0); Mean Corpuscular Hemoglobin 26.9 pg (27.0-33.0); Mean Corpuscular Volume 85.9 fL (80-95); Mean Platelet Volume 8.9 fL (8.0-11.0); Platelet Count 244 x1000/uL (130-400); RBC 3.27 m/cumm (4.00-5.20); RBC Distribution Width 16.7 % (11.7-14.6)
[2020-02-07 07:10] LABS: Anion Gap 7.2 mmol/L (3-11); BUN 27 mg/dL (7-18); CO2 28.8 mmol/L (21.0-32.0); CREATININE 2.31 mg/dL (0.55-1.02); Calcium 8.7 mg/dL (8.5-10.1); Chloride 103 mmol/L (98-107); Glucose 154 mg/dL (74-106); Potassium 5.7 mmol/L (3.5-5.1); Sodium 139 mmol/L (136-145)
[2020-02-07] MEDS: Insulin Aspart 300 UNITS/3 ML PEN SC ×4 (09:09→22:00)
[2020-02-07] MEDS: Heparin 5,000 UNITS/ML VIAL 5000 UNITS SC ×2 (09:09→19:55)
[2020-02-07] MEDS: Sertraline 50 MG TAB 150 MG PO (09:11)
[2020-02-07] MEDS: Lactobacillus Acidophilus CAP 1 CAP PO ×3 (09:11→19:54)
[2020-02-07] MEDS: Amoxicillin 500/Clav. 125 TAB PO ×2 (09:11→19:54)
[2020-02-07] MEDS: Magnesium Oxide 400 MG TAB PO ×2 (09:11→19:54)
[2020-02-07] MEDS: Famotidine 20 MG TAB PO (09:11)
[2020-02-07] MEDS: Psyllium PKT 1 EACH PO (09:11)
--- NOTE | 2020-02-07 10:19 | W.PM.PROGNOT ---
Date of Service Date of service: 02/07/20 Time of Service: 10:19 Assessment and Plan Assessment and plan (1) Dizziness: Start date: 02/07/20 Start time: 10:23 Status: Acute Assessment and plan: Not clear etiology of dizziness. Imaging r/o for CVA. Dizziness does not affect gait stability or unsteadiness. States dizziness when getting up but does not become orhtostatic. Question medication, weaning off potential causes of dizziness. Denies N/V. (2) Lower extremity edema: Start date: 02/07/20 Start time: 10:25 Status: Chronic Assessment and plan: We ruled out DVTs. Mild pulmonary hypertension on echo. Would benefit form a sleep study as outpatient. IVF finished. TEDs to help with edema EF by echo 55-59%. (3) Hypomagnesemia: Status: Resolved Assessment and plan: Resolved. (4) Leucocytosis: Start date: 02/07/20 Start time: 10:26 Status: Resolved Assessment and plan: Resolved. (5) Atrial septal aneurysm: Start date: 02/07/20 Start time: 10:26 Status: Acute Assessment and plan: Will need outpatient follow up. (6) DVT prophylaxis: Start date: 02/07/20 Start time: 10:26 Status: Acute Assessment and plan: heparin sc. (7) Discharge planning issues: Start date: 02/07/20 Start time: 10:26 Status: Acute Assessment and plan: Full code. CM working on placement at [facility] above case discussed with Dr. Gleason who is in agreement. (8) Hyperkalemia: Start date: 02/07/20 Start time: 10:25 Status: Acute Assessment and plan: Potassium 5.7, hold potassium po supplements. Low potassium diet and recheck k level Subjective Subjective Patient reports: other Interval history since last seen: C/o abdominal pain to lower abd. Smiling and able to sit up without difficulty, denies N/V. Will check urinalysis. States dizziness the same, though she is able to ambulate without unsteadiness or gait disturbance. All imaging negative for cause of dizziness. Denies CP, SOB, N/V/D. Exam Narrative Exam Narrative: General: Obese female, sitting up in bed, A&Ox3, answering questions appropriately, looks comfortable. HEENT: Visibly atraumatic/normocephalic, MMM Cardiovascular: RRR, +KRISTA Lungs: crackles at B bases Gastrointestinal: soft, nontender, nondistended, c/o pain to abd. Extremities: +1 edema BLE's, RLE wound on tibial surface - not infected Objective Objective Clinical Data: Abnormal lab results 02/07/20 02/07/20 Range/Units 06:45 06:45 RBC 3.27 L (4.00-5.20) m/cumm Hgb 8.8 L (12.0-15.5) g/dL Hct 28.1 L (36.0-46.0) % MCH 26.9 L (27.0-33.0) pg MCHC 31.3 L (32.0-36.0) g/dL RDW 16.7 H (11.7-14.6) % Potassium 5.7 H (3.5-5.1) mmol/L BUN 27 H (7-18) mg/dL Creatinine 2.31 H (0.55-1.02) mg/dL Glucose 154 H (74-106) mg/dL Vital Signs Temperature 36.7 C 02/07/20 08:36 Temperature Source Tympanic 02/07/20 08:36 Pulse 72 02/07/20 08:36 Pulse Rhythm Regular 02/06/20 21:02 Pulse 90 02/03/20 10:50 Respiratory Rate 17 02/07/20 08:36 Respiratory Effort 02/06/20 21:02 Respiratory Depth Normal 02/06/20 21:02 Respiratory Pattern Normal 02/06/20 21:02 Blood Pressure 104/72 02/07/20 08:36 Blood Pressure Mean 77 02/03/20 10:49 Blood Pressure Position Supine 02/03/20 07:29 Pulse Oximetry 95 02/07/20 08:36 Oxygen Delivery Method Room Air 02/07/20 08:36 Oxygen Flow Rate 0 02/07/20 08:36 Pain Level 0 02/07/20 08:36 Comment 02/05/20 23:30 Intake & Output 02/06/20 02/06/20 02/07/20 11:59 23:59 12:59 Intake Total 1250 / 1750 500 / 1750 Output Total 200 / 200 Balance 1250 / 1550 300 / 1550 Weight 86.2 kg 86.4 kg Intake: IV 1000 / 1010 10 / 1010 Oral 250 / 740 490 / 740 Output: Urine 200 / 200 Other: Urine Color Yellow Yellow Urine Appearance Clear Clear Comment per patient Stool Size Moderate Stool Characteristics Formed Brown Voiding Methods Toilet Toilet Laboratory Results WBC 9.30 k/cumm (4.4-10.8) 02/07/20 06:45 RBC 3.27 m/cumm (4.00-5.20) L 02/07/20 06:45 Hgb 8.8 g/dL (12.0-15.5) L 02/07/20 06:45 Hct 28.1 % (36.0-46.0) L 02/07/20 06:45 MCV 85.9 fL (80-95) 02/07/20 06:45 MCH 26.9 pg (27.0-33.0) L 02/07/20 06:45 MCHC 31.3 g/dL (32.0-36.0) L 02/07/20 06:45 RDW 16.7 % (11.7-14.6) H 02/07/20 06:45 Plt Count 244 x1000/uL (130-400) 02/07/20 06:45 MPV 8.9 fL (8.0-11.0) 02/07/20 06:45 Immature Gran % 0.4 % 02/06/20 06:38 Neutrophils % 65.2 02/06/20 06:38 Lymphocytes % 23.1 02/06/20 06:38 Monocytes % 7.8 02/06/20 06:38 Eosinophils % 3.1 02/06/20 06:38 Basophils % 0.4 02/06/20 06:38 Absolute Neutrophils 5.01 k/cumm (1.2-6.7) 02/06/20 06:38 Absolute Lymphocytes 1.78 k/cumm (1.2-3.4) 02/06/20 06:38 Absolute Monocytes 0.60 k/cumm (0.11-0.7) 02/06/20 06:38 Absolute Eosinophils 0.24 k/cumm (0.0-0.7) 02/06/20 06:38 Absolute Basophils 0.03 k/cumm (0.0-0.2) 02/06/20 06:38 RBC Morphology See below 02/04/20 05:20 Polychromasia Present 02/04/20 05:20 Hypochromasia 2+ 02/04/20 05:20 Anisocytosis 1+ 02/04/20 05:20 PT 10.2 sec (9.3-11.0) 02/03/20 08:50 INR 1.0 (0.9-1.1) 02/03/20 08:50 APTT 41.2 sec (21.0-31.4) H 02/04/20 05:20 D-Dimer 5140 ng/mlFEU (<500) H 02/03/20 08:50 Sodium 139 mmol/L (136-145) 02/07/20 06:45 Potassium 5.7 mmol/L (3.5-5.1) H 02/07/20 06:45 Chloride 103 mmol/L (98-107) 02/07/20 06:45 Carbon Dioxide 28.8 mmol/L (21.0-32.0) 02/07/20 06:45 Anion Gap 7.2 mmol/L (3-11) 02/07/20 06:45 BUN 27 mg/dL (7-18) H 02/07/20 06:45 Creatinine 2.31 mg/dL (0.55-1.02) H 02/07/20 06:45 Estimated GFR/1.73 m2 20.20 (mL/min/1.73m2) 02/07/20 06:45 Glucose 154 mg/dL (74-106) H 02/07/20 06:45 Calcium 8.7 mg/dL (8.5-10.1) 02/07/20 06:45 Magnesium 2.2 mg/dL (1.8-2.4) 02/06/20 06:38 Total Bilirubin 0.9 mg/dL (0.2-1.0) 02/03/20 08:50 AST 12 U/L (15-37) L 02/03/20 08:50 ALT 13 U/L (14-59) L 02/03/20 08:50 Alkaline Phosphatase 88 U/L (46-116) 02/03/20 08:50 Creatine Kinase 49 U/L (26-192) 02/03/20 14:45 Troponin I < 0.05 ng/Ml (<0.06) 02/03/20 14:45 NT-Pro-B Natriuret Pep 992 pg/mL (<300) H 02/03/20 08:50 Total Protein 7.2 g/dL (6.4-8.2) 02/03/20 08:50 Albumin 3.4 g/dL (3.4-5.0) 02/03/20 08:50 Procalcitonin 0.2 ng/mL 02/03/20 14:45 Urine Color Yellow (Yellow) 02/03/20 10:22 Urine Clarity Clear (Clear) 02/03/20 10:22 Urine pH 5.5 (5-8) 02/03/20 10:22 Ur Specific [place] 1.020 (1.005-1.025) 02/03/20 10:22 Urine Protein 30 mg/dL (Negative) H 02/03/20 10:22 Urine Ketones Negative mg/dL (Negative) 02/03/20 10:22 Urine Blood Negative (Negative) 02/03/20 10:22 Urine Nitrite Negative (Negative) 02/03/20 10:22 Urine Bilirubin Negative (Negative) 02/03/20 10:22 Urine Urobilinogen 0.2 EU/dL (Up TO 0.2) 02/03/20 10:22 Ur Leukocyte Esterase Negative (Negative) 02/03/20 10:22 Urine RBC 0-2 HPF (0-2) 02/03/20 10:22 Urine WBC 5-10 HPF (0-5) 02/03/20 10:22 Ur Epithelial Cells Few HPF (Negative) 02/03/20 10:22 Urine Crystals Negative HPF (Negative) 02/03/20 10:22 Urine Bacteria Moderate HPF (Negative) 02/03/20 10:22 Urine Casts Comment LPF (Negative) 02/03/20 10:22 Urine Mucus Negative (Negative) 02/03/20 10:22 Urine Other Few renal (Negative) 02/03/20 10:22 Ur Culture Indicated? Yes 02/03/20 10:22 Urine Glucose Negative mg/dL (Negative) 02/03/20 10:22
[2020-02-07] MEDS: Donepezil 5 MG TAB 10 MG PO (10:33)
--- NOTE | 2020-02-07 11:27 | W.INDIABCONS ---
Date of service: 02/07/20 Time of Service: 11:27 Diabetes Inpatient Consult DESCRIPTION/ASSESSMENT: Appreciate diabetes consult for Alyssa Zhu hospitalized with dizziness and possible Pulmonary Embolism and alternation in Potassium and Magnesium status. GFR ~15-20 indicating renal compromise. BMI 34 Last A1c recorded 11.8 on 05/20 Alyssa has blood sugars in 200s until yesterday and this morning down to 159mg/dl receiving her usual 20u Lantus and moderate insulin correction increased from sensitive. She is eating 100% of her meals at 45-68 grams carbohydrate. At home she receives Metformin as well. Given her age and history of high A1c's, suggest her current intervention is keeping her safe without hyper and hypoglycemia symptoms. INTERVENTION: No intervention suggested at this time. PLAN: Will follow blood sugars. Would appreciate A1c if none current. Will attempt to follow up prior to discharge Time Spent in Nutritional Counseling and Treatment: 0 minutes face to face
--- NOTE | 2020-02-07 11:35 | PT.INNT ---
PT Notes Visit Reasons: SYNCOPAL EPISODE,JAIMEE,HYPOKALEMIA,?BBPV Pt refused x 2 today due to being tired. She reports that she has already been up and walking in the room today on her own and will cont throughout the day as she can.
[2020-02-07] MEDS: Insulin Glargine 300 UNITS/3 ML PEN 20 UNITS SC (12:37)
--- NOTE | 2020-02-07 15:33 | PDOC.CMPRO ---
Care Management Progress Note S/O: Alyssa remains inpatient at this time, she continues to work with PT and is making gains toward discharge as telemetry was discontinued today per MD. CM continues to follow. A: Alyssa is an 84 year old male admitted to [facility] on 02/03/20 for Syncopal episode, JAIMEE, hypokalemia. P: Anticipate Alyssa will return home vs SNF placement; CM will determine bed availability and discharge plan on Saturday when admissions personnel are available. If Alyssa does return home she will resume VNA RN (weekly dressing changes) with an addition of PT/OT/PROPERTY CARETAKER and transport via [facility]. She will also follow up with her PCP and Palliative Care. CM continues to follow.
[2020-02-07 15:36] LABS: Potassium 5.5 mmol/L (3.5-5.1)
[2020-02-07 15:59] LABS: Bilirubin Negative (Negative); Blood Negative (Negative); Clarity Clear (Clear); Glucose Negative (Negative); Ketones Negative (Negative); Leukocyte Esterase Moderate (Negative); Nitrite Negative (Negative); Specific Gravity 1.015 (1.005-1.025); Urobilinogen 0.2 EU/dL (Up TO 0.2); pH 6.5 (5-8)
[2020-02-07 16:11] LABS: Bacteria Rare HPF (Negative); Crystals Negative HPF (Negative); Epithelial Cells Many HPF (Negative); Mucus Negative (Negative); Other Cells Moderate Yeast (Negative); RBC 0-2 HPF (0-2)
[2020-02-07 16:12] LABS: C & S Indicated? No/Sq. Contamination
[2020-02-07] MEDS: Prazosin 1 MG CAP PO (21:58)
[2020-02-07] MEDS: Melatonin 3 MG TAB PO (21:58)
[2020-02-07] MEDS: Mirtazapine 15 MG TAB PO (21:58)
[2020-02-08 04:02] VITALS: BP 123/73; PULSE 76; RESP 16; TEMP 36.9; O2SAT 98
[2020-02-08 07:02] LABS: HCT 28.6 % (36.0-46.0); HGB 8.9 g/dL (12.0-15.5); Mean Corp. HGB Concentration 31.1 g/dL (32.0-36.0); Mean Corpuscular Volume 86.7 fL (80-95); Mean Platelet Volume 8.8 fL (8.0-11.0); Platelet Count 245 x1000/uL (130-400); RBC Distribution Width 17.2 % (11.7-14.6); White Blood Cell Count 8.64 k/cumm (4.4-10.8)
[2020-02-08 07:20] LABS: Anion Gap 5.1 mmol/L (3-11); BUN 26 mg/dL (7-18); CO2 30.9 mmol/L (21.0-32.0); CREATININE 2.36 mg/dL (0.55-1.02); Calcium 8.8 mg/dL (8.5-10.1); Chloride 104 mmol/L (98-107); Estimated GFR 19.71 (mL/min/1.73m2); Glucose 124 mg/dL (74-106); Magnesium 2.1 mg/dL (1.8-2.4); Potassium 5.2 mmol/L (3.5-5.1); Sodium 140 mmol/L (136-145)
[2020-02-08 07:47] VITALS: BP 106/60; PULSE 65; RESP 17; TEMP 36.8; O2SAT 96
--- NOTE | 2020-02-08 08:44 | PTTR_ITS ---
Date of service: 02/08/20 Time of Service: 08:44 PT Notes Visit Reasons: SYNCOPAL EPISODE,JAIMEE,HYPOKALEMIA,?BBPV Inpatient Physical Therapy Treatment Note [facility] Date: 02/08/2020 PRECAUTIONS: Fall. Standard. Vertigo. Activity as tolerated. SUBJECTIVE: Patient continues to complain of dizziness but states that it is not as intense as it was last week. She did request about going back to bed as prolonged sitting highly contributes to her dizziness. She continues to refuse further testing with the [facility]. She continues to report pain on bilateral legs due to the swelling with the right more affected than the left. She is adamant against walking outside of her room. OBJECTIVE: Right UE IV access remains open. Bilateral lower leg edema decreasing. PAIN: 2-3/10 on bilateral legs. BED MOBILITY/TRANSFERS Rolling L/R: SBA Supine-sit: SBA Sit-supine: SBA Sit-stand: SBA Stand-sit: SBA Bed-Chair: SBA Chair-bed: SBA GAIT Assistive Device: Front wheeled walker Weight bearing: FWB Assist: SBA Distance: 25 feet x 4 Deviation: Reciprocal gait pattern. Step 2 on the left step through on the right. Decreased rita. Continues to complain of dizziness. THEREX: Patient tolerated seated LAQs, hip flexion, clamshells, and ankle PF DF. ASSESSMENT: Patient continues to complain of dizziness but of much less intensity as she did last week. She demonstrates increased independence with mobility ADL performance and tolerated more distance today using the front wheeled walker with tolerable tolerable amount of dizziness. She will continue to benefit from skilled physical therapy services in order to increase her level of safety in preparation for discharge to home. PLAN: Patient will benefit from a [facility] placement to address impairments in balance and activity tolerance as well as BLE strength. Once discharged to home after short-term rehab placement, patient will benefit from home health PT services in order to progress mobility level using least restrictive assistive ambulatory device, assess home safety, identi fy additional equipment needs, and establish a functional maintenance program that will increase ability of patient to remain at home. TREATMENT CODE/TIME: 9753 0 x 17 minutes beginning at 8:44 AM.
[2020-02-08] MEDS: Heparin 5,000 UNITS/ML VIAL 5000 UNITS SC ×2 (09:03→19:27)
[2020-02-08] MEDS: Psyllium PKT 1 EACH PO (09:03)
[2020-02-08] MEDS: Famotidine 20 MG TAB PO (09:04)
[2020-02-08] MEDS: Lactobacillus Acidophilus CAP 1 CAP PO ×3 (09:04→19:27)
[2020-02-08] MEDS: Sertraline 50 MG TAB 150 MG PO (09:04)
[2020-02-08] MEDS: Donepezil 5 MG TAB 10 MG PO (09:04)
[2020-02-08] MEDS: Magnesium Oxide 400 MG TAB PO ×2 (09:04→19:27)
[2020-02-08] MEDS: Amoxicillin 500/Clav. 125 TAB PO ×2 (09:05→19:27)
--- NOTE | 2020-02-08 10:42 | W.PM.DS.N ---
Date of service: 02/08/20 Time of Service: 14:51 DS: Diagnosis Discharge Diagnosis (1) Dizziness: Start date: 02/08/20 Start time: 10:42 Status: Acute Asessment and Plan: Work up for dizziness negative. Negative imaging, u/a. C/o dizziness at all times, though does not impair ability to ambulate. Medications that could possibly contribute to dizziness dcd, without effectiveness. Meclizine ordered. This could be underlying attention seeking as patient is known to have this behaviour. She does have dementia and requires assitance with medication administration. In the future she will likely need to be placed in a assited living facility due to her dementia. (2) Lower extremity edema: Start date: 02/08/20 Start time: 10:47 Status: Chronic Asessment and Plan: Spoke with her about compression stockings and elevation of extremities when not ambulating around room. She does have compression at home but does not wear them. (3) Hypomagnesemia: Start date: 02/08/20 Start time: 10:49 Status: Resolved Asessment and Plan: 2.1, repleted and resolved. (4) Leucocytosis: Start date: 02/08/20 Start time: 10:49 Status: Resolved Asessment and Plan: Likely in setting of dehydration. Hydrated with IVF upon admission. (5) Atrial septal aneurysm: Start date: 02/08/20 Start time: 10:50 Status: Acute Asessment and Plan: Did not appear to be causing dizziness, On teley she was SR. Recommend further work up for this,if it causes her to be symptomatic in the future (6) Hyperkalemia: Start date: 02/08/20 Start time: 10:55 Status: Acute Asessment and Plan: Trending down. Hold potassium supplements. Recheck in 3 days and potassium restricted diet until in normal range. Discharge Plan Disposition Condition: Stable Discharge Details Chief Complaint: Dizzy/Sync Clinical Impression: Dizziness, Hypomagnesemia, Acute hypokalemia Reason For Visit: SYNCOPAL EPISODE,JAIMEE,HYPOKALEMIA,?BBPV Admit Date/Time: 02/03/20 14:15 Admit Provider: Sierra Pierre Attending Provider: Sierra Pierre Primary Care Provider: Larry Moulton ED Provider: Alberto Weeks Hospital Course Hospital Course: 84 y.o female with PMH mild dementia, asthma, anemia, DM, admitted to [facility] m/s after presenting to ED with complaints of dizziness. 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 A neoplasm cannot be excluded. An ENT consult is recommended for further evaluation. She did present with leukocytosis and was started on augmentin, leukocytosis resolved. She will continue the full dose of augmentin. U/S r/o negative for bilateral DVT. On admission she was also found to have elevated creatinine, reviewing her chart this appeared to be a new finding. She was placed on IVF, her creatinine improved mildly. She does not recall taking extra medication. Renal u/s revealing Dilatation of the left renal collecting system which has a similar appearance compared to the CT scan from 09/18/2019. This may represent an extrarenal pelvis. Follow-up as clinically appropriate. She is voiding without difficulty. U/A negative. CXR and VQ scan negative. Patient continues to complain of dizziness however this does not seem to affect her ambulation or ability to move around. Gabapentin and hydralizine dcd, however dizziness did not improve. Nothing appears to make it better. Creatinine is stable. She was placed on potassium pills while hospitalized, then became hyperkalemic, potassium supplements on hold and potassium restricted diet. She will need repeat potassium level in 3 days, if normal resume diet with potassium. Chronic lower extremity edema, recommend compression stockings, she does have stockings at home but does not wear them. Likely dizziness could be underlying attention seeking as patient is known to have this behaviour. She does have dementia and requires assistance with medication administration. In the future she will likely need to be placed in a assisted living facility due to her dementia. Her behaviour is demonstrated in when telling her she was being discharged she started to have more complaints that have already been worked up, legs hurting, urinating alot. She became very upset and despondent. Today she is doing well. Potassium level trending down, creatinine stable, able to ambulate, she is being discharged to health and rehab. She will need to follow up with her PCP in 2 weeks. Continue Home Health, PT/OT, nursing services. Home Meds and New Rx's Prescriptions: New amoxicillin-pot clavulanate 500-125 mg Tablet 1 tab PO BID Qty: 13 RF: 0 meclizine 12.5 mg Tablet 12.5 mg PO TID PRN PRNQty: 10 RF: 0 famotidine 20 mg Tablet 20 mg PO DAILY Qty: 15 RF: 0 Continued donepezil 10 mg tablet 10 mg PO DAILY Qty: 30 RF: 11 prochlorperazine maleate [Compazine] 10 mg tablet 10 mg PO BID PRN (Reason: nausea and vomiting) Qty: 20 RF: 0 simvastatin [Zocor] 40 mg tablet 40 mg PO DAILY Qty: 90 RF: 4 lorazepam 0.5 mg tablet 0.5 mg PO BID PRN (Reason: anxiety) Qty: 10 RF: 0 albuterol sulfate [Ventolin HFA] 90 mcg/actuation HFA aerosol inhaler 2 puff Inhalation Q4H PRN PRN (Reason: shortness of breath or wheezing) Qty: 1 RF: 3 ondansetron 4 mg tablet,disintegrating 4 mg PO Q6H PRN (Reason: nausea and vomiting) Qty: 10 RF: 0 metformin 1,000 mg tablet 1,000 mg PO BID Qty: 180 RF: 4 melatonin 3 mg tablet 3 mg PO HS Qty: 90 RF: 3 mirtazapine 15 mg tablet 15 mg PO HS Qty: 90 RF: 1 prazosin 2 mg capsule 2 mg PO HS Qty: 90 RF: 3 furosemide [Lasix] 40 mg tablet 40 mg PO DAILY Qty: 30 RF: 2 sertraline 50 mg tablet 50 mg PO DAILY RF: 0 sertraline 100 mg tablet 100 mg PO DAILY Qty: 90 RF: 4 magnesium oxide 400 mg (241.3 mg magnesium) tablet 400 mg PO BID Qty: 60 RF: 0 Lactobacillus acidophilus Capsule 1 cap PO TID RF: 0 psyllium husk (aspartame) 3.5 gram Powder In Packet 1 packet PO QDAY RF: 0 acetaminophen [Tylenol] 325 mg Tablet 650 mg PO Q6H PRN PRNQty: 0 RF: 0 Lantus Solostar U-100 Insulin 100 unit/mL (3 mL) insulin pen 20 unit subcut DAILY RF: 0 Discontinued pantoprazole [Protonix] 20 mg tablet,delayed release (DR/EC) 40 mg PO DAILY Qty: 60 RF: 11 gabapentin 100 mg capsule 100 mg PO QHS Qty: 90 RF: 4 hydroxyzine HCl 50 mg tablet 50 mg PO DAILY PRN (Reason: anxiety) Qty: 30 RF: 11 No Action (DME) blood-glucose meter [OneTouch Ultra2 Meter] kit See Dose Instructions .ROUTE .MEDSUPPLY Qty: 1 RF: 0 (DME) lancets [Prodigy Lancets] 1 EACH misc 1 ea Miscellaneous BID Qty: 100 RF: 6 (DME) lancets [OneTouch Delica Lancets] 1 EACH misc 1 ea Miscellaneous BID Qty: 100 RF: 4 (DME) OneTouch Ultra Test strip 1 ea Miscellaneous BID Qty: 100 RF: 4 (DME) Comfort EZ Pen [place] 33 gauge x 3/16 needle See Rx Instructions .ROUTE .MEDSUPPLY Qty: 100 RF: 4 Discharge Instructions Instructions: Sinusitis (GEN), Dizziness (GEN), Edema (DC) Additional Instructions: Recheck lab work in 3 days Follow up with your PCP. Take all medications as prescribed. You are on an antibiotic for sinusitis. Take all of the medicaiton Recommend following up with an ENT for further work up of lobulated mass. Stand Alone Forms: Nursing Discharge Form Referrals: Larry Moulton MD [Primary Care Provider] - 02/16/20 2:20 pm Activity:: Activity as Tolerated Activity:: Activity as Tolerated Equipment/Supplies:: No Equipment Needed Diet:: Carb Counting DS: Summary Status at Discharge Functional status at discharge: independent ambulation Overall status at discharge: patient is back to baseline Mental Status: mental status grossly normal Speech and Movement: speech and movement normal Mood: congruent mood Affect: normal affect Exam Narrative Exam Narrative: General: Obese female, sitting up in bed, A&Ox3, answering questions appropriately, looks comfortable. HEENT: Visibly atraumatic/normocephalic, MMM Cardiovascular: RRR, +KRISTA Lungs: crackles at B bases, chronic Gastrointestinal: soft, nontender, nondistended, c/o pain to abd. Extremities: +1 edema BLE's, RLE wound on tibial surface - not infected Psych Mental Status: mental status grossly normal Speech and Movement: speech and movement normal Mood: congruent mood Affect: normal affect DS: Data Vitals/I&O Vitals and I&O: Vital Signs Temperature 36.8 C 02/08/20 07:47 Temperature Source Tympanic 02/08/20 07:47 Pulse 65 02/08/20 07:47 Pulse Rhythm Regular 02/07/20 20:13 Pulse 90 02/03/20 10:50 Respiratory Rate 17 02/08/20 07:47 Respiratory Effort Non-Labored 02/07/20 20:13 Respiratory Depth Normal 02/07/20 20:13 Respiratory Pattern Normal 02/07/20 20:13 Blood Pressure 106/60 02/08/20 07:47 Blood Pressure Mean 77 02/03/20 10:49 Blood Pressure Position Supine 02/03/20 07:29 Pulse Oximetry 96 02/08/20 07:47 Oxygen Delivery Method Room Air 02/08/20 07:47 Oxygen Flow Rate 0 02/08/20 07:47 Pain Level 5 02/08/20 07:47 Comment 02/05/20 23:30 Intake & Output 02/07/20 02/07/20 02/08/20 11:59 23:59 11:59 Intake Total 360 / 840 Output Total 250 / 250 1100 / 1100 Balance 110 / 590 -1100 / -1100 Weight 88.9 kg Intake: Oral 360 / 840 Output: Urine 250 / 250 1100 / 1100 Other: Urine Color Yellow Yellow Urine Appearance Clear Clear Stool Size Moderate Stool Characteristics Formed Voiding Methods Toilet Toilet Data Completed and Pending Completed studies during hospitalization [Text1]: Exam(s) a MRI:MR brain wo EXAM: MR BRAIN WO CLINICAL HISTORY: cerebellar stroke like symptoms. TECHNIQUE: Multiplanar multisequence MRI of the brain was performed. CONTRAST MATERIAL: IV Contrast: 0 ML of Dotarem contrast administered. COMPARISON: No exams were available for comparison FINDINGS: VENTRICLES AND EXTRA AXIAL SPACES: There is prominence of the ventricles and sulci consistent with the patient's age. HEMORRHAGE: None. CEREBRAL PARENCHYMA: No focus of restricted diffusion to suggest acute infarct. No space-occupying lesion identified. MIDLINE SHIFT: None. BRAINSTEM/CEREBELLUM: Normal. CALVARIUM: Normal. VISUALIZED PARANASAL SINUSES/MASTOIDS: Clear. OTHER FINDINGS: Within the posterior aspect of the nasopharynx, there is a 1.9 x 1.9 cm lobulated exophytic mass projecting into the nasopharyngeal airway. The mass shows heterogeneous intensity on the T2 weighted images and hypointensity on the T1 weighted image. The mass is midline and appears to arise from the posterior wall. IMPRESSION: 1. No evidence of an acute infarct. 2. 1.9 x 1.9 cm lobulated mass within the nasopharynx as described above. A neoplasm cannot be excluded. An ENT consult is recommended for further evaluation. 3. Findings were discussed with the emergency department on the date of the examination. Exam(s) a US:US extremity venous BI EXAM: US EXTREMITY VENOUS BI CLINICAL HISTORY: Requested by hospitalist prior to admis. r/o dvt. TECHNIQUE: Bilateral lower extremity venous ultrasound performed using grayscale, color-flow, and spectral Doppler analysis. COMPARISON: No exams were available for comparison FINDINGS: The bilateral common femoral, femoral and popliteal veins demonstrate normal compressibility, augmentation, and color Doppler. The posterior tibial veins are patent. The saphenofemoral junctions are unremarkable. There is no evidence of a Henry's cyst. The soft tissues are unremarkable. IMPRESSION: Right: Negative for DVT Left: Negative for DVT DATA REPOSITORY: Exam(s) a RAD:XR chest 2V PA & lateral EXAM: XR CHEST 2V PA LATERAL CLINICAL HISTORY: white count, requested by hospitalist, r/o pneumonia TECHNIQUE: 2D digital imaging was performed. COMPARISON: XR CHEST 2V PA LATERAL from 09/25/2019 FINDINGS: MEDIASTINUM: There is unchanged prominence of the right hilum. HEART: Normal. PULMONARY VASCULATURE: Stable. LUNGS: Clear. Stable scarring in the right middle lobe. PLEURAL SPACE: No pleural effusion or pneumothorax. BONE:Degenerative changes in the spine and shoulders bilaterally. OTHER FINDINGS:Normal. IMPRESSION: No acute pulmonary findings. DATA REPOSITORY: NM:NM lung scan perfusion EXAM: NM LUNG SCAN PERFUSION CLINICAL HISTORY: suspected PE. TECHNIQUE: Injected Dose: Ventilation: 29.6 mCi Tc-99m DTPA via inhalation Perfusion: 5.2 mCi Tc-99m MAA via IV COMPARISON: XR CHEST 2V PA LATERAL from 02/03/2020 FINDINGS: Chest X-Ray: Clear lungs. Perfusion: Normal. Ventilation:Normal IMPRESSION: 1. Low probability VQ examination. . . . Modified PIOPED II criteria Probability Criteria High Two or more segments of V/Q mismatch Low Normal Perfusion, Non segmental perfusion abnormalities, pleural effusion in at least 1/3 of pleural cavity with no other defect Radiograph/perfusion matched defect in mid to upper lung confined to segment, one to three small segmental perfusion defects (<25% of segment) Perfusion defect smaller than corresponding radiographic lesion. Intermediate All other findings Exam(s) a US:US renal EXAM: US RENAL CLINICAL HISTORY: JAIMEE. TECHNIQUE: Chavez scale, color and spectral Doppler were used. COMPARISON: CT ABDOMEN PELVIS WO from 09/18/2019 FINDINGS: Renal size in cm: Right: 11.8 left: 12.2 Echogenicity: Normal. Hydronephrosis: There is dilatation of the left renal pelvis. The left renal pelvis has a similar appearance on the CT scan from 09/18/19. This likely reflects a prominent extrarenal pelvis. Cyst or mass: No. Nephrolithiasis: No. Other findings: None. Bladder:Bladder is not well distended as the patient emptied her bladder prior to the examination. Ureteral jets: Right: Not visualized during the examination. Left: Not visualized during the examination. Prevoid vol: cc Postvoid vol:35 cc DOPPLER FINDINGS: Unremarkable IMPRESSION: 1. Dilatation of the left renal collecting system which has a similar appearance compared to the CT scan from 09/18/2019. This may represent an extrarenal pelvis. Follow-up as clinically appropriate. 2. Incomplete evaluation of the urinary bladder as the patient emptied her bladder prior to the examination. Exam(s) a US:US echocardiogram APPROVED REPORT EXAM: Comprehensive 2D, Doppler, and color-flow Echocardiogram Patient Location: In-Patient Room/Bed: 214A Tube Turner: Monisha Colon RDCS (AE) Indications: Syncope, Murmur Conclusion Left Ventricle : The left ventricle is normal size. The left ventricular systolic function is normal. There is normal left ventricular wall thickness. There is normal LV segmental wall motion. The left ventricular diastolic function is normal. LVEF is 55-59%. Right Ventricle : Right ventricle is borderline dilated. Right ventricular function appears normal Atria : The left atrium size is normal. Right atrium is mildly dilated. Atrial septal aneurysm is present. Aortic Valve : The Aortic valve is sclerotic. There is no aortic valvular stenosis. Mild aortic regurgitation. Mitral Valve : The mitral valve is normal in structure. Trace mitral regurgitation. No evidence of mitral valve stenosis. Tricuspid Valve : The tricuspid valve is normal in structure. Mild tricuspid regurgitation. There is no tricuspid valve stenosis. Great Vessels : The IVC was not well visualized. Estimated RVSP is 25-30 mmHg. There is no prior echocardiogram available for comparison. Labs on day of discharge: Labs from last 24 hours 02/08/20 02/08/20 02/08/20 14:00 06:28 06:28 WBC 8.64 RBC 3.30 L Hgb 8.9 L Hct 28.6 L MCV 86.7 MCH 27.0 MCHC 31.1 L RDW 17.2 H Plt Count 245 MPV 8.8 Sodium 140 Potassium Pending 5.2 H Chloride 104 Carbon Dioxide 30.9 Anion Gap 5.1 BUN 26 H Creatinine 2.36 H Estimated GFR/1.73 m2 19.71 Glucose 124 H Calcium 8.8 Magnesium 2.1 Urine Color Urine Clarity Urine pH Ur Specific [place] Urine Protein Urine Ketones Urine Blood Urine Nitrite Urine Bilirubin Urine Urobilinogen Ur Leukocyte Esterase Urine RBC Urine WBC Ur Epithelial Cells Urine Crystals Urine Bacteria Urine Mucus Urine Other Ur Culture Indicated? Urine Glucose 02/07/20 02/07/20 15:20 15:00 WBC RBC Hgb Hct MCV MCH MCHC RDW Plt Count MPV Sodium Potassium 5.5 H Chloride Carbon Dioxide Anion Gap BUN Creatinine Estimated GFR/1.73 m2 Glucose Calcium Magnesium Urine Color Yellow Urine Clarity Clear Urine pH 6.5 Ur Specific [place] 1.015 Urine Protein Negative Urine Ketones Negative Urine Blood Negative Urine Nitrite Negative Urine Bilirubin Negative Urine Urobilinogen 0.2 Ur Leukocyte Esterase Moderate H Urine RBC 0-2 Urine WBC 5-10 Ur Epithelial Cells Many Urine Crystals Negative Urine Bacteria Rare Urine Mucus Negative Urine Other Moderate yeast Ur Culture Indicated? No/sq. contamination Urine Glucose Negative [facility] Medical History Anxiety (Chronic) Depression (Acute) Diabetes mellitus (Inactive) Times 3 years. History of CVA (cerebrovascular accident) (Inactive 12/02/91) a. 1991. History of DVT (deep vein thrombosis) (Inactive) a. History of right DVT and PE. b. IVC filter placed 40 years ago. Iatrogenic pulmonary embolism and infarction (Resolved) IVC clip-1974 Inappropriate behavior (Acute) Lower extremity edema (Chronic) Mild cognitive impairment with memory loss (Chronic) Osteoarthrosis (Inactive) both hips, right greater than left Osteopenia (Inactive) Palliative care patient (Chronic) Panic attack (Inactive) Rupture of tendon of biceps, long head (Resolved 10/31/07) Surgical History History of bilateral salpingo-oophorectomy (Inactive) History of Surgical Procedure (Inactive) a. Cholecystectomy. b. Lysis of adhesions. c. Hysterectomy. d. Oophorectomy. Status post abdominal hysterectomy (Inactive) Status post breast biopsy (Inactive) Status post cholecystectomy (Inactive) Family History Son , age 52 Sudden cardiac arrest Father , killed by Nazis in front of her when she was 10 yo Murder Social History (Updated 02/04/20 @ 21:04 by Shasta Tapia MD) Smoking/Tobacco Use Status: Former Tobacco Use Tobacco: How many years used: 1 Second Hand Exposure: Yes Alcohol Intake: never Drug use: Never Substance use type: does not use Caregiver/Support person: No Household members: none Housing: apartment Number of Children: 1 number of grandchildren: 1 Communication Needs: Corrective Lenses Education Level: middle school Do you need help understanding health information?: Always 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 Pets and animals: No What is your relationship status?: How often do you talk on the phone with friends or family?: never How often do you get together with friends or relatives?: twice per week How often do you attend rastafarian or baptist services?: 4 or more times per year Panel score (0-1 are the most socially isolated patients): 1 What type of physical activity do you participate in: walking and irregular exercise Duration: < 15 minutes/day Frequency: 1-2 times per week Marielle/Congregational: Anglican Special marielle needs: No Seatbelt use: always Water heater temp set <120 deg: Yes Working smoke detector in home: Yes Fire extinguisher in home: Yes Do you feel safe at home: Yes Do you feel safe in your relationship?: Yes Additional Social history: in 1998. Lives in [place]. Moved in 2012. Has one granddaughter, only living relative; granddaughter lives in [place]. Since fall, no longer as social. Used to sit on porch of [place] and greet people. Now staying to herself in her room. Not socializing in communal areas. She escaped [place] alone at the age of 16. 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 They had 1 son and then moved to the [place] as he was given the option as a concentration camp survivor.
--- NOTE | 2020-02-08 10:47 | W.DIABETESNO ---
Date of service: 02/08/20 Time of Service: 10:47 Diabetes Note NOTE: Follow up for Alyssa. Blood sugars have recovered nicely to 125 this AM on her usual insulin dosing at home. States she is going home. States blood sugars are higher at home but she is unconcerned and has everything she needs to manage diabetes at home. No further intervention warranted at this time. Time Spent in Nutritional Counseling and Treatment: 5 minutes face to face
[2020-02-08 11:43] VITALS: BP 123/71; PULSE 76; RESP 18; TEMP 36.8; O2SAT 95
[2020-02-08] MEDS: Insulin Glargine 300 UNITS/3 ML PEN 20 UNITS SC (12:19)
[2020-02-08] MEDS: Insulin Aspart 300 UNITS/3 ML PEN SC ×2 (12:20→21:43)
--- NOTE | 2020-02-08 13:11 | INDS_ITS ---
Date of service: 02/08/20 PT Notes Visit Reasons: SYNCOPAL EPISODE,JAIMEE,HYPOKALEMIA,?BBPV Inpatient Physical Therapy Discharge Summary Dates: 02/08/2020 Dates of Service: 02/04/2020 through 02/08/2020 This is a clinical summary of care provided on the duration of dates listed above. No charge was made in the completion of this documentation. Referring Doctor: Sierra Pierre MD PT Orders: PT CONSULT: Vertigo Precautions: Fall. Standard. Activity as tolerated. Patient Profile/Admitting Diagnosis: Patient is an 84-year-old female who presented to the ED on 02/03/2020 with chief complaints of dizziness, lightheadedness, and syncopal episodes x2 at home. Patient is diagnosed with syncope, suspected pulmonary embolism, dizziness, acute hypokalemia, hypomagnesemia, and leukocytosis with referral to physical therapy to address functional mobility impairment resulting from vertigo. PMHX: Medical History (Updated 02/03/20 @ 18:32 by Sierra Pierre MD) Anxiety (Chronic) Depression (Acute) Diabetes mellitus (Inactive) Times 3 years. History of CVA (cerebrovascular accident) (Inactive 12/02/91) a. 1991. History of DVT (deep vein thrombosis) (Inactive) a. History of right DVT and PE. b. IVC filter placed 40 years ago. Iatrogenic pulmonary embolism and infarction (Resolved) IVC clip-1974 Inappropriate behavior (Acute) Lower extremity edema (Chronic) Mild cognitive impairment with memory loss (Chronic) Osteoarthrosis (Inactive) both hips, right greater than left Osteopenia (Inactive) Palliative care patient (Chronic) Panic attack (Inactive) Rupture of tendon of biceps, long head (Resolved 10/31/07) Surgical History History of bilateral salpingo-oophorectomy (Inactive) History of Surgical Procedure (Inactive) a. Cholecystectomy. b. Lysis of adhesions. c. Hysterectomy. d. Oophorectomy. Status post abdominal hysterectomy (Inactive) Status post breast biopsy (Inactive) Status post cholecystectomy (Inactive) Social History/Home Situation: Patient lives alone in an apartment at the [facility]. She is independent with all activities of daily living using the 4 wheeled walker. She goes down to the basement apartment building for all her meals. Home health nurse comes in twice a week to manage her medications. Equipment Owned/DME: 4 wheeled walker Subjective: Please see PT notes for today 02/08/2020 Objective: General Observation: Please see PT notes for today 02/08/2020 Mental Status: Please see PT notes for today 02/08/2020 Pain: Please see PT notes for today 02/08/2020 ROM: Right Upper Extremity: Shoulder Flexion WFL. Shoulder abduction WFL. Elbow flexion WFL. Wrist flexion WFL. Opening and closing of hand WFL. Left Upper Extremity: Shoulder Flexion WFL. Shoulder abduction WFL. Elbow flexion WFL. Wrist flexion WFL. Opening and closing of hand WFL. Right Lower Extremity: NT due to patient refusal. Nurse Mandy did report that patient managed to walk to the bathroom last night with her walker. Left Lower Extremity: NT due to patient refusal. Nurse Mandy did report that patient managed to walk to the bathroom last night with her walker. Strength: Right Upper Extremity: Shoulder flexors 4/5. Shoulder abductors 4/5. Elbow flexors 5/5. Elbow extensors 5/5. Monorail Charger Operator strong. Left Upper Extremity: Shoulder flexors 4/5. Shoulder abductors 4/5. Elbow flexors 5/5. Elbow extensors 5/5. Monorail Charger Operator strong. Right Lower Extremity: NT due to patient refusal. Nurse Mandy did report that patient managed to walk to the bathroom last night with her walker. Left Lower Extremity: NT due to patient refusal. Nurse Mandy did report that patient managed to walk to the bathroom last night with her walker. Sensation: Intact as to pain and pressure on bilateral lower extremities. Bed Mobility/Transfers: Rolling SBA Supine to sit SBA Sit to supine SBA Sit to stand SBA Stand to sit SBA Bed to chair SBA Chair to bed SBA Gait: 25 feet x 4 using a front wheeled walker with full weightbearing requiring only SBA with step to gait pattern on the left and step through on the right with continued decrease in rita and report of dizziness of less intensity compared to last week. Balance: Static Sitting: Good Dynamic Sitting: Good Static Standing: Fair Dynamic Standing: Fair Assessment: Patient is an 84-year-old female who presented to the ED on 02/03/2020 with chief complaints of dizziness, lightheadedness, and syncopal episodes x2 at home. Patient is diagnosed with syncope, suspected pulmonary embolism, dizziness, acute hypokalemia, hypomagnesemia, and leukocytosis resulting to significantly limited mobility ADL performance, difficulty with walking, balance impairment, positional vertigo, and generalized weakness patient demonstrated increased tolerance to mobility ADL performanc over the weekend and today. She will highly benefit from continued home health PT services in order to achieve goals indicated below. Patient presented with clinical signs and symptoms consistent with current/admitting diagnoses that have resulted to mobility limitations, gait instability, generalized weakness, and impairment of motor control as demonstrated by the following impairment level findings: 1. Decreased strength to B LE major muscle groups 2. Impaired sitting/standing balance due to positional vertigo 3. Impaired activity tolerance Impairments contributed to the following functional limitations: 1. Dependent bed mobility skills 2. Increased dependence with transfers 3. Inability to safely ambulate without assistive device and physical assistance 4. Increase completion time for mobility ADL performance 5. Increased fall risk 6. Inability to negotiate steps alone safely Goals: Goals X1 week 1. Supine-Sit independent NOT MET 2. Sit-Supine independent NOT MET 3. Sit-Stand independent NOT MET 4. Stand-Sit independent NOT MET 5. Bed-Chair independent NOT MET 6. Chair-Bed independent NOT MET 7. Independent gait on level surface with use of 4 wheeled walker for at least 300 feet without report of vertigo NOT MET 9. Independent with home exercise program NOT MET 10. Good static and dynamic standing balance/tolerance NOT MET DISCHARGE RECOMMENDATIONS: Patient will benefit from home health PT services in order to progress mobility level using least restrictive assistive ambulatory device, assess home safety, identify additional equipment needs, and establish a functional maintenance program that will increase ability of patient to remain at home. TREATMENT CODE/TIME: NC. Thank you very much for this referral. Felicity Diaz PT, DPT, CLT [facility] [place], [place]
[2020-02-08] MEDS: LORazepam 0.5 MG TAB PO (13:49)
[2020-02-08 14:18] LABS: Albumin 52.2 % (55.8-66.1); Comment (See Note); Total Protein 5.5 g/dL (6.3-8.2)
--- NOTE | 2020-02-08 14:44 | W.PM.PROGNOT ---
Date of Service Date of service: 02/08/20 Time of Service: 14:44 Assessment and Plan Assessment and plan (1) Dizziness: Start date: 02/08/20 Start time: 14:48 Status: Acute Assessment and plan: Not clear etiology of dizziness. Imaging r/o for CVA. Dizziness does not affect gait stability or unsteadiness. States dizziness when getting up but does not become orhtostatic. Question medication, weaning off potential causes of dizziness. Denies N/V. would benefit from rehab. Accepted to H/R for tomorrow. (2) Lower extremity edema: Status: Chronic Assessment and plan: We ruled out DVTs. Mild pulmonary hypertension on echo. TEDs to help with edema and elevation when not ambulating EF by echo 55-59%. (3) Atrial septal aneurysm: Start date: 02/08/20 Start time: 14:50 Status: Acute Assessment and plan: Will need outpatient follow up. (4) Hyperkalemia: Status: Acute Assessment and plan: Trending down. 5.2 by am labs. Continue potassium restricted diet. Hold potassium supplement. Continue to monitor repeat labs in am. Above case discussed with Dr. Gleason who is in agreement. Subjective Subjective Patient reports: other Interval history since last seen: She has been accepted to H/R for tomorrow. She had an episode of SOB after being told she was getting discharged. RA sat was 98%, she was able to talk, lSC, no CP or pressure, appeared to be an axiety attack. Given 0.5 mg ativan. Calm after medication with no SOB. Exam Narrative Exam Narrative: General: Obese female, sitting in chair AAOx3, answering questions appropriately, looks comfortable. HEENT: Visibly atraumatic/normocephalic, MMM Cardiovascular: RRR, +KRISTA Lungs: crackles at B bases, chronic Gastrointestinal: soft, nontender, nondistended, c/o pain to abd. Extremities: +1 edema BLE's, RLE wound on tibial surface - not infected Objective Objective Clinical Data: Abnormal lab results 02/07/20 02/07/20 02/08/20 Range/Units 15:00 15:20 06:28 RBC (4.00-5.20) m/cumm Hgb (12.0-15.5) g/dL Hct (36.0-46.0) % MCHC (32.0-36.0) g/dL RDW (11.7-14.6) % Potassium 5.5 H 5.2 H (3.5-5.1) mmol/L BUN 26 H (7-18) mg/dL Creatinine 2.36 H (0.55-1.02) mg/dL Glucose 124 H (74-106) mg/dL Ur Leukocyte Esterase Moderate H (Negative) 02/08/20 Range/Units 06:28 RBC 3.30 L (4.00-5.20) m/cumm Hgb 8.9 L (12.0-15.5) g/dL Hct 28.6 L (36.0-46.0) % MCHC 31.1 L (32.0-36.0) g/dL RDW 17.2 H (11.7-14.6) % Potassium (3.5-5.1) mmol/L BUN (7-18) mg/dL Creatinine (0.55-1.02) mg/dL Glucose (74-106) mg/dL Ur Leukocyte Esterase (Negative) Vital Signs Temperature 36.8 C 02/08/20 11:43 Temperature Source Tympanic 02/08/20 11:43 Pulse 76 02/08/20 11:43 Pulse Rhythm Regular 02/07/20 20:13 Pulse 90 02/03/20 10:50 Respiratory Rate 18 02/08/20 11:43 Respiratory Effort Non-Labored 02/07/20 20:13 Respiratory Depth Normal 02/07/20 20:13 Respiratory Pattern Normal 02/07/20 20:13 Blood Pressure 123/71 02/08/20 11:43 Blood Pressure Mean 77 02/03/20 10:49 Blood Pressure Position Supine 02/03/20 07:29 Pulse Oximetry 95 02/08/20 11:43 Oxygen Delivery Method Room Air 02/08/20 11:43 Oxygen Flow Rate 0 02/08/20 11:43 Pain Level 4 02/08/20 11:43 Comment 02/05/20 23:30 Intake & Output 02/07/20 02/08/20 02/08/20 23:59 11:59 23:59 Intake Total 360 / 840 240 / 240 Output Total 250 / 250 1100 / 1100 Balance 110 / 590 -1100 / -860 240 / -860 Weight 88.9 kg Intake: Oral 360 / 840 240 / 240 Output: Urine 250 / 250 1100 / 1100 Other: Urine Color Yellow Yellow Urine Appearance Clear Clear Stool Size Moderate Stool Characteristics Formed Voiding Methods Toilet Toilet Laboratory Results WBC 8.64 k/cumm (4.4-10.8) 02/08/20 06:28 RBC 3.30 m/cumm (4.00-5.20) L 02/08/20 06:28 Hgb 8.9 g/dL (12.0-15.5) L 02/08/20 06:28 Hct 28.6 % (36.0-46.0) L 02/08/20 06:28 MCV 86.7 fL (80-95) 02/08/20 06:28 MCH 27.0 pg (27.0-33.0) 02/08/20 06:28 MCHC 31.1 g/dL (32.0-36.0) L 02/08/20 06:28 RDW 17.2 % (11.7-14.6) H 02/08/20 06:28 Plt Count 245 x1000/uL (130-400) 02/08/20 06:28 MPV 8.8 fL (8.0-11.0) 02/08/20 06:28 Immature Gran % 0.4 % 02/06/20 06:38 Neutrophils % 65.2 02/06/20 06:38 Lymphocytes % 23.1 02/06/20 06:38 Monocytes % 7.8 02/06/20 06:38 Eosinophils % 3.1 02/06/20 06:38 Basophils % 0.4 02/06/20 06:38 Absolute Neutrophils 5.01 k/cumm (1.2-6.7) 02/06/20 06:38 Absolute Lymphocytes 1.78 k/cumm (1.2-3.4) 02/06/20 06:38 Absolute Monocytes 0.60 k/cumm (0.11-0.7) 02/06/20 06:38 Absolute Eosinophils 0.24 k/cumm (0.0-0.7) 02/06/20 06:38 Absolute Basophils 0.03 k/cumm (0.0-0.2) 02/06/20 06:38 RBC Morphology See below 02/04/20 05:20 Polychromasia Present 02/04/20 05:20 Hypochromasia 2+ 02/04/20 05:20 Anisocytosis 1+ 02/04/20 05:20 PT 10.2 sec (9.3-11.0) 02/03/20 08:50 INR 1.0 (0.9-1.1) 02/03/20 08:50 APTT 41.2 sec (21.0-31.4) H 02/04/20 05:20 D-Dimer 5140 ng/mlFEU (<500) H 02/03/20 08:50 Sodium 140 mmol/L (136-145) 02/08/20 06:28 Potassium 5.0 mmol/L (3.5-5.1) 02/08/20 14:05 Chloride 104 mmol/L (98-107) 02/08/20 06:28 Carbon Dioxide 30.9 mmol/L (21.0-32.0) 02/08/20 06:28 Anion Gap 5.1 mmol/L (3-11) 02/08/20 06:28 BUN 26 mg/dL (7-18) H 02/08/20 06:28 Creatinine 2.36 mg/dL (0.55-1.02) H 02/08/20 06:28 Estimated GFR/1.73 m2 19.71 (mL/min/1.73m2) 02/08/20 06:28 Glucose 124 mg/dL (74-106) H 02/08/20 06:28 Calcium 8.8 mg/dL (8.5-10.1) 02/08/20 06:28 Magnesium 2.1 mg/dL (1.8-2.4) 02/08/20 06:28 Total Bilirubin 0.9 mg/dL (0.2-1.0) 02/03/20 08:50 AST 12 U/L (15-37) L 02/03/20 08:50 ALT 13 U/L (14-59) L 02/03/20 08:50 Alkaline Phosphatase 88 U/L (46-116) 02/03/20 08:50 Creatine Kinase 49 U/L (26-192) 02/03/20 14:45 Troponin I < 0.05 ng/Ml (<0.06) 02/03/20 14:45 NT-Pro-B Natriuret Pep 992 pg/mL (<300) H 02/03/20 08:50 Total Protein 7.2 g/dL (6.4-8.2) 02/03/20 08:50 Albumin 3.4 g/dL (3.4-5.0) 02/03/20 08:50 Procalcitonin 0.2 ng/mL 02/03/20 14:45 Urine Color Yellow (Yellow) 02/07/20 15:00 Urine Clarity Clear (Clear) 02/07/20 15:00 Urine pH 6.5 (5-8) 02/07/20 15:00 Ur Specific Channing 1.015 (1.005-1.025) 02/07/20 15:00 Urine Protein Negative mg/dL (Negative) 02/07/20 15:00 Urine Ketones Negative mg/dL (Negative) 02/07/20 15:00 Urine Blood Negative (Negative) 02/07/20 15:00 Urine Nitrite Negative (Negative) 02/07/20 15:00 Urine Bilirubin Negative (Negative) 02/07/20 15:00 Urine Urobilinogen 0.2 EU/dL (Up TO 0.2) 02/07/20 15:00 Ur Leukocyte Esterase Moderate (Negative) H 02/07/20 15:00 Urine RBC 0-2 HPF (0-2) 02/07/20 15:00 Urine WBC 5-10 HPF (0-5) 02/07/20 15:00 Ur Epithelial Cells Many HPF (Negative) 02/07/20 15:00 Urine Crystals Negative HPF (Negative) 02/07/20 15:00 Urine Bacteria Rare HPF (Negative) 02/07/20 15:00 Urine Casts Comment LPF (Negative) 02/03/20 10:22 Urine Mucus Negative (Negative) 02/07/20 15:00 Urine Other Moderate yeast (Negative) 02/07/20 15:00 Ur Culture Indicated? No/sq. contamination 02/07/20 15:00 Urine Glucose Negative mg/dL (Negative) 02/07/20 15:00
--- NOTE | 2020-02-08 15:32 | CMPROGNOTE_ITS ---
- If Service Date Differs Date of service: 02/08/20 Time of Service: 15:32 Care Management Progress Note S/O: Alyssa was sitting up in bed when CM met with her. She reported that she was still feeling dizzy, and that she had some leg pain today. CM discussed options for discharge as she will be medically cleared soon. CM introduced Alyssa to Hanna, reporting coordinator from [facility], and they had a nice discussion about Alyssa going there for a short, skilled stay to [facility] prior to returning home. Alyssa is agreeable to going to [facility], and they have offered her a bed. Per provider, she will be ready for discharge tomorrow. CM will continue to follow. A: Alyssa is an 84 year old male admitted to [facility] on 02/03/20 for Syncopal episode, JAIMEE, hypokalemia. P: Alyssa will go to [facility] for a short, skilled stay prior to returning home. Anticipate she will discharge tomorrow. She will transport via [facility]'s w/c van, coordinated by RAJEEV. CM will continue to follow and support discharge planning considerations.
[2020-02-08] MEDS: Melatonin 3 MG TAB PO (21:43)
[2020-02-08] MEDS: Prazosin 1 MG CAP PO (21:43)
[2020-02-08] MEDS: Mirtazapine 15 MG TAB PO (21:43)
[2020-02-08 21:46] VITALS: BP 109/63; PULSE 74; RESP 18; TEMP 37; O2SAT 92
[2020-02-08 23:45] VITALS: BP 106/62; PULSE 79; RESP 14; TEMP 36.7; O2SAT 93
[2020-02-09 03:21] VITALS: BP 120/71; PULSE 80; RESP 19; TEMP 36.6; O2SAT 95
[2020-02-09 06:48] LABS: HCT 27.3 % (36.0-46.0); HGB 8.4 g/dL (12.0-15.5); Mean Corp. HGB Concentration 30.8 g/dL (32.0-36.0); Mean Corpuscular Hemoglobin 26.7 pg (27.0-33.0); Mean Corpuscular Volume 86.7 fL (80-95); Platelet Count 218 x1000/uL (130-400); RBC 3.15 m/cumm (4.00-5.20); RBC Distribution Width 17.4 % (11.7-14.6); White Blood Cell Count 8.18 k/cumm (4.4-10.8)
[2020-02-09 07:16] LABS: Anion Gap 6.6 mmol/L (3-11); BUN 27 mg/dL (7-18); CO2 30.4 mmol/L (21.0-32.0); CREATININE 2.38 mg/dL (0.55-1.02); Calcium 8.5 mg/dL (8.5-10.1); Chloride 103 mmol/L (98-107); Estimated GFR 19.52 (mL/min/1.73m2); Glucose 112 mg/dL (74-106); Potassium 4.7 mmol/L (3.5-5.1); Sodium 140 mmol/L (136-145)
[2020-02-09 07:20] VITALS: BP 109/63; PULSE 75; RESP 16; TEMP 36.7; O2SAT 95
[2020-02-09] MEDS: Sertraline 50 MG TAB 150 MG PO (08:46)
[2020-02-09] MEDS: Magnesium Oxide 400 MG TAB PO (08:46)
[2020-02-09] MEDS: Amoxicillin 500/Clav. 125 TAB PO (08:47)
[2020-02-09] MEDS: Lactobacillus Acidophilus CAP 1 CAP PO (08:47)
[2020-02-09] MEDS: Famotidine 20 MG TAB PO (08:47)
[2020-02-09] MEDS: Donepezil 5 MG TAB 10 MG PO (08:47)
[2020-02-09] MEDS: Acetaminophen 325 MG TAB PO (08:48)
[2020-02-09] MEDS: Heparin 5,000 UNITS/ML VIAL 5000 UNITS SC (08:50)
[2020-02-09 09:02] LABS: Immunotyping, Serum (See Note)
[2020-02-09] MEDS: Psyllium PKT 1 EACH PO (09:09)
[2020-02-09] MEDS: Normal Saline Flush 10 ML SYR IVP (09:52)
[2020-02-09 11:25] VITALS: BP 97/49; PULSE 68; RESP 16; TEMP 36.3; O2SAT 95
[2020-02-09] MEDS: Insulin Aspart 300 UNITS/3 ML PEN SC (12:04)
[2020-02-09] MEDS: Insulin Glargine 300 UNITS/3 ML PEN 20 UNITS SC (12:05)
--- NOTE | 2020-02-09 12:13 | W.PM.DS.N ---
Date of service: 02/09/20 Time of Service: 12:14 DS: Diagnosis Discharge Diagnosis (1) Dizziness: Status: Acute (2) Lower extremity edema: Status: Chronic (3) Hypomagnesemia: Status: Resolved (4) Leucocytosis: Status: Resolved (5) Atrial septal aneurysm: Status: Acute (6) Hyperkalemia: Status: Acute Discharge Plan Disposition Patient Disposition: SNF (LEVEL 1) [facility] Condition: Stable Discharge Details Chief Complaint: Dizzy/Sync Clinical Impression: Dizziness, Hypomagnesemia, Acute hypokalemia Reason For Visit: SYNCOPAL EPISODE,JAIMEE,HYPOKALEMIA,?BBPV Admit Date/Time: 02/03/20 14:15 Admit Provider: Sierra Pierre Attending Provider: Sierra Pierre Primary Care Provider: Larry Moulton ED Provider: Alberto Weeks Hospital Course Hospital Course: 84 y.o female with PMH mild dementia, asthma, anemia, DM, admitted to [facility] m/s after presenting to ED with complaints of dizziness. 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 A neoplasm cannot be excluded. An ENT consult is recommended for further evaluation. She did present with leukocytosis and was started on augmentin, leukocytosis resolved. She will continue the full dose of augmentin. U/S r/o negative for bilateral DVT. On admission she was also found to have elevated creatinine, reviewing her chart this appeared to be a new finding. She was placed on IVF, her creatinine improved mildly. She does not recall taking extra medication. Renal u/s revealing Dilatation of the left renal collecting system which has a similar appearance compared to the CT scan from 09/18/2019. This may represent an extrarenal pelvis. Follow-up as clinically appropriate. She is voiding without difficulty. U/A negative. CXR and VQ scan negative. Patient continues to complain of dizziness however this does not seem to affect her ambulation or ability to move around. Gabapentin and hydralizine dcd, however dizziness did not improve. Nothing appears to make it better. Creatinine is stable. She was placed on potassium pills while hospitalized, then became hyperkalemic, potassium supplements on hold and potassium restricted diet. She will need repeat potassium level in 3 days, if normal resume diet with potassium. Chronic lower extremity edema, recommend compression stockings, she does have stockings at home but does not wear them. Likely dizziness could be underlying attention seeking as patient is known to have this behaviour. She does have dementia and requires assistance with medication administration. Her behaviour is demonstrated in when telling her she was being discharged she started to have more complaints that have already been worked up, legs hurting, urinating alot. She became very upset and despondent. Today she is doing well. Potassium level trending down today at 4.7, creatinine stable at 2.3 which appears to be her baseline, she is able to ambulate, she is being discharged to [facility] and rehab. She is currently on augmentin bid for sinusitis, day 04/10. Home Meds and New Rx's Prescriptions: New amoxicillin-pot clavulanate 500-125 mg Tablet 1 tab PO BID Qty: 13 RF: 0 meclizine 12.5 mg Tablet 12.5 mg PO TID PRN PRNQty: 10 RF: 0 famotidine 20 mg Tablet 20 mg PO DAILY Qty: 15 RF: 0 Continued donepezil 10 mg tablet 10 mg PO DAILY Qty: 30 RF: 11 prochlorperazine maleate [Compazine] 10 mg tablet 10 mg PO BID PRN (Reason: nausea and vomiting) Qty: 20 RF: 0 simvastatin [Zocor] 40 mg tablet 40 mg PO DAILY Qty: 90 RF: 4 albuterol sulfate [Ventolin HFA] 90 mcg/actuation HFA aerosol inhaler 2 puff Inhalation Q4H PRN PRN (Reason: shortness of breath or wheezing) Qty: 1 RF: 3 ondansetron 4 mg tablet,disintegrating 4 mg PO Q6H PRN (Reason: nausea and vomiting) Qty: 10 RF: 0 metformin 1,000 mg tablet 1,000 mg PO BID Qty: 180 RF: 4 melatonin 3 mg tablet 3 mg PO HS Qty: 90 RF: 3 mirtazapine 15 mg tablet 15 mg PO HS Qty: 90 RF: 1 prazosin 2 mg capsule 2 mg PO HS Qty: 90 RF: 3 furosemide [Lasix] 40 mg tablet 40 mg PO DAILY Qty: 30 RF: 2 sertraline 50 mg tablet 50 mg PO DAILY RF: 0 sertraline 100 mg tablet 100 mg PO DAILY Qty: 90 RF: 4 magnesium oxide 400 mg (241.3 mg magnesium) tablet 400 mg PO BID Qty: 60 RF: 0 Lactobacillus acidophilus Capsule 1 cap PO TID RF: 0 psyllium husk (aspartame) 3.5 gram Powder In Packet 1 packet PO QDAY RF: 0 acetaminophen [Tylenol] 325 mg Tablet 650 mg PO Q6H PRN PRNQty: 0 RF: 0 Lantus Solostar U-100 Insulin 100 unit/mL (3 mL) insulin pen 20 unit subcut DAILY RF: 0 lorazepam 0.5 mg tablet 0.5 mg PO BID PRN (Reason: anxiety) Qty: 10 RF: 0 Discontinued pantoprazole [Protonix] 20 mg tablet,delayed release (DR/EC) 40 mg PO DAILY Qty: 60 RF: 11 gabapentin 100 mg capsule 100 mg PO QHS Qty: 90 RF: 4 hydroxyzine HCl 50 mg tablet 50 mg PO DAILY PRN (Reason: anxiety) Qty: 30 RF: 11 No Action (DME) blood-glucose meter [OneTouch Ultra2 Meter] kit See Dose Instructions .ROUTE .MEDSUPPLY Qty: 1 RF: 0 (DME) lancets [Prodigy Lancets] 1 EACH misc 1 ea Miscellaneous BID Qty: 100 RF: 6 (DME) lancets [OneTouch Delica Lancets] 1 EACH misc 1 ea Miscellaneous BID Qty: 100 RF: 4 (DME) OneTouch Ultra Test strip 1 ea Miscellaneous BID Qty: 100 RF: 4 (DME) Comfort EZ Pen Walton 33 gauge x 3/16 needle See Rx Instructions .ROUTE .MEDSUPPLY Qty: 100 RF: 4 Discharge Instructions Instructions: Sinusitis (GEN), Dizziness (GEN), Edema (DC) Additional Instructions: Recheck lab work in 3 days Follow up with your PCP. Take all medications as prescribed. You are on an antibiotic for sinusitis. Take all of the medicaiton Recommend following up with an ENT for further work up of lobulated mass. Stand Alone Forms: Nursing Discharge Form Referrals: Larry Moulton MD [Primary Care Provider] - 02/16/20 2:20 pm Activity:: Activity as Tolerated Equipment/Supplies:: No Equipment Needed Diet:: Carb Counting Discharge Orders Discharge Orders: Discharge Order (Routine); Ordered 02/09/20 Ordered By: Reva Booth Discharge Data Discharge Date/Time-TO BE ENTERED AT DEPARTURE: 02/09/20 13:55 DS: Summary Status at Discharge Functional status at discharge: uses cane/walker Overall status at discharge: patient is progressing back to baseline Mental Status: mental status grossly normal Speech and Movement: speech and movement normal Mood: congruent mood Affect: normal affect Exam Narrative Exam Narrative: General: Obese female, sitting in chair in no acute distress, pink warm dry and well perfused, answering questions appropriately, looks comfortable. Neuro: awake alert and oriented HEENT: Visibly atraumatic/normocephalic, moist mucosa Cardiovascular: RRR, +murmur Lungs: dim at bases, no wheeze Gastrointestinal: soft, obese nontender, nondistended positive bowel sounds Extremities: +1 edema BLE's, RLE wound on tibial surface, scabbed over, no sign of infection Psych Mental Status: mental status grossly normal Speech and Movement: speech and movement normal Mood: congruent mood Affect: normal affect DS: Data Vitals/I&O Vitals and I&O: Vital Signs Temperature 36.7 C 02/09/20 07:20 Temperature Source Temporal Artery Scan 02/09/20 07:20 Pulse 75 02/09/20 07:20 Pulse Rhythm Regular 02/08/20 23:45 Pulse 90 02/03/20 10:50 Respiratory Rate 16 02/09/20 07:20 Respiratory Effort Non-Labored 02/08/20 23:45 Respiratory Depth Normal 02/08/20 23:45 Respiratory Pattern Normal 02/08/20 23:45 Blood Pressure 109/63 02/09/20 07:20 Blood Pressure Mean 77 02/03/20 10:49 Blood Pressure Position Supine 02/03/20 07:29 Pulse Oximetry 95 02/09/20 07:20 Oxygen Delivery Method Room Air 02/09/20 07:20 Oxygen Flow Rate 0 02/09/20 07:20 Pain Level 5 02/09/20 08:48 Comment 02/05/20 23:30 Intake & Output 02/08/20 02/09/20 02/09/20 23:59 11:59 23:59 Intake Total 480 / 480 240 / 240 Output Total 350 / 1450 Balance 130 / -970 240 / 240 Weight 89.2 kg Intake: Oral 480 / 480 240 / 240 Output: Urine 350 / 1450 Other: Urine Color Yellow Urine Appearance Clear Urine Odor Normal Comment void x 1 Voiding Methods Toilet Toilet Data Completed and Pending Labs on day of discharge: Labs from last 24 hours 02/09/20 02/09/20 02/08/20 06:08 06:08 14:05 WBC 8.18 RBC 3.15 L Hgb 8.4 L Hct 27.3 L MCV 86.7 MCH 26.7 L MCHC 30.8 L RDW 17.4 H Plt Count 218 MPV 9.0 Sodium 140 Potassium 4.7 5.0 Chloride 103 Carbon Dioxide 30.4 Anion Gap 6.6 BUN 27 H Creatinine 2.38 H Estimated GFR/1.73 m2 19.52 Glucose 112 H Calcium 8.5 Total Protein (PEP) Albumin % (PEP) Ykcge-6-Demxcjqlk (%) Orasj-8-Kxmjwhiod (%) Beta Globulins (%) Gamma Globulins (%) M-Toño % PEP Comment Serum Immunofixation 02/06/20 06:38 WBC RBC Hgb Hct MCV MCH MCHC RDW Plt Count MPV Sodium Potassium Chloride Carbon Dioxide Anion Gap BUN Creatinine Estimated GFR/1.73 m2 Glucose Calcium Total Protein (PEP) 5.5 L Albumin % (PEP) 52.2 L Orvco-2-Gjzcdiddx (%) 7.6 H Yabmo-4-Sbibaywmb (%) 16.4 H Beta Globulins (%) 13.7 H Gamma Globulins (%) 10.1 L M-Toño % Not Applicable PEP Comment (see note) Serum Immunofixation (see note) [facility] Medical History Anxiety (Chronic) Depression (Acute) Diabetes mellitus (Inactive) Times 3 years. History of CVA (cerebrovascular accident) (Inactive 12/02/91) a. 1992. History of DVT (deep vein thrombosis) (Inactive) a. History of right DVT and PE. b. IVC filter placed 40 years ago. Iatrogenic pulmonary embolism and infarction (Resolved) IVC clip-1974 Inappropriate behavior (Acute) Lower extremity edema (Chronic) Mild cognitive impairment with memory loss (Chronic) Osteoarthrosis (Inactive) both hips, right greater than left Osteopenia (Inactive) Palliative care patient (Chronic) Panic attack (Inactive) Rupture of tendon of biceps, long head (Resolved 10/31/07) Surgical History History of bilateral salpingo-oophorectomy (Inactive) History of Surgical Procedure (Inactive) a. Cholecystectomy. b. Lysis of adhesions. c. Hysterectomy. d. Oophorectomy. Status post abdominal hysterectomy (Inactive) Status post breast biopsy (Inactive) Status post cholecystectomy (Inactive) Family History Son , age 52 Sudden cardiac arrest Father , killed by Nazis in front of her when she was 10 yo Murder Social History (Updated 02/04/20 @ 21:04 by Shasta Tapia MD) Smoking/Tobacco Use Status: Former Tobacco Use Tobacco: How many years used: 1 Second Hand Exposure: Yes Alcohol Intake: never Drug use: Never Substance use type: does not use Caregiver/Support person: No Household members: none Housing: apartment Number of Children: 1 number of grandchildren: 1 Communication Needs: Corrective Lenses Education Level: middle school Do you need help understanding health information?: Always 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 Pets and animals: No What is your relationship status?: How often do you talk on the phone with friends or family?: never How often do you get together with friends or relatives?: twice per week How often do you attend methodist or christianity services?: 4 or more times per year Panel score (0-1 are the most socially isolated patients): 1 What type of physical activity do you participate in: walking and irregular exercise Duration: < 15 minutes/day Frequency: 1-2 times per week Marielle/Hindu: Yarsani Special marielle needs: No Seatbelt use: always Water heater temp set <120 deg: Yes Working smoke detector in home: Yes Fire extinguisher in home: Yes Do you feel safe at home: Yes Do you feel safe in your relationship?: Yes Additional Social history: in 1998. Lives in [place]. Moved in 2012. Has one granddaughter, only living relative; granddaughter lives in [place]. Since fall, no longer as social. Used to sit on porch of [place] and greet people. Now staying to herself in her room. Not socializing in communal areas. She escaped [place] alone at the age of 16. 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 They had 1 son and then moved to the [place] as he was given the option as a concentration camp survivor.
--- NOTE | 2020-02-09 16:21 | CMDISCH_ITS ---
- If Service Date Differs Date of service: 02/09/20 Time of Service: 16:21 LACE Index Scoring Tool - Questions: Length of Stay (in days): 7 - 13 Acuity (Admit via E.D.?): Yes Comorbidities: Diabetes w/o Complication, Dementia E.D. Visits: 17 - Answers: Total Score: 17 Risk of Readmission: High Risk Care Management Discharge Reason for Hospitalization: Syncopal episode, JAIMEE, Hypokalemia Discharge Plan: Alyssa will go to [facility] for a short, skilled stay to gain strength prior to returning home. She will transport via [facility] w/c van, coordinated by CM. She is agreeable to the plan. Patient/Family Education Needs: Review discharge instructions regarding activity levels and medications, discussion of self care needs and goals of care. Services Needed at Discharge: Shelter Facility ([facility]), Transportation (w/c van)
== END 2020-02-09 13:55 | disposition skilled nursing facility (03) | DRG 312 ==
LOC: ER 14:31 → MS 15:18
PROVIDERS: General Practice; Nurse Practitioner Family; Admitting Provider Internal Medicine; Emergency Provider Student in an Organized Health Care Education/Training Program; PCP Family Medicine; Visit Provider Internal Medicine
DX: R55 Syncope and collapse (principal); N17.9 Acute kidney failure, unspecified; I25.3 Aneurysm of heart; R42 Dizziness and giddiness; E87.6 Hypokalemia; E83.42 Hypomagnesemia; E11.9 Type 2 diabetes mellitus without complications; Z79.4 Long term (current) use of insulin; I10 Essential (primary) hypertension; F32.9 Major depressive disorder, single episode, unspecified; F41.0 Panic disorder [episodic paroxysmal anxiety]; Z86.73 Personal history of transient ischemic attack (TIA), and cerebral infarction without residual deficits; Z86.711 Personal history of pulmonary embolism; Z86.718 Personal history of other venous thrombosis and embolism; G31.84 Mild cognitive impairment of uncertain or unknown etiology; M85.80 Other specified disorders of bone density and structure, unspecified site; R60.0 Localized edema; E86.0 Dehydration; I27.20 Pulmonary hypertension, unspecified; L89.152 Pressure ulcer of sacral region, stage 2; J32.9 Chronic sinusitis, unspecified; E87.5 Hyperkalemia; F03.90 Unspecified dementia, unspecified severity, without behavioral disturbance, psychotic disturbance, mood disturbance, and anxiety; D64.9 Anemia, unspecified
CPT/HCPCS: 36415; 36416; 76770; 80048; 80053; 82550; 82962; 84145; 85027; 87449; 93005; 93306; 96361; 96365; 96366; 96368; 96375; 97162; 97530; 99223; 99232; 99233; 99239; 99285; 70551; 71046; 78580; 81003; 81015; 83735; 83880; 84132; 84165; 84484; 85025; 85379; 85610; 85730; 86320; 87086; 93010; 93970; J1644; J2060; J3480

== ENCOUNTER → 2020-02-04 14:10 | Outpatient (BNVA) | payer MEDICARE, MEDICAID, SELFPAY | PROVIDERS: PCP Family Medicine; Referring Provider Family Medicine; Visit Provider Psychiatry & Neurology Neurology | DX: R69 Illness, unspecified (principal) ==

== ENCOUNTER 2020-02-12 14:45 | Outpatient (REF) | payer MEDICARE, SELFPAY ==
[2020-02-12 15:46] LABS: Anion Gap 5.6 mmol/L (3-11); BUN 21 mg/dL (7-18); CO2 32.4 mmol/L (21.0-32.0); CREATININE 2.26 mg/dL (0.55-1.02); Calcium 8.4 mg/dL (8.5-10.1); Chloride 102 mmol/L (98-107); Estimated GFR 20.72 (mL/min/1.73m2); Glucose 128 mg/dL (74-106); Sodium 140 mmol/L (136-145)
== END 2020-02-12 15:05 ==
LOC: LBN 14:45
PROVIDERS: PCP Family Medicine; Visit Provider Family Medicine
DX: E11.9 Type 2 diabetes mellitus without complications (principal); E87.5 Hyperkalemia
CPT/HCPCS: 80048

== ENCOUNTER 2020-02-29 16:14 | Emergency (ER) | payer MEDICARE, SELFPAY ==
[2020-02-29] VITALS (37 sets, daily range): BP systolic 96–124; BP diastolic 41–56; PULSE 73–85; RESP 16–32; TEMP 36.7–37; O2SAT 93–97
--- NOTE | 2020-02-29 16:30 | DI.RAD_ITS ---
EXAM: XR CHEST 2V PA LATERAL CLINICAL HISTORY: SOB, rales. TECHNIQUE: 2D digital imaging was performed. COMPARISON: XR CHEST 2V PA LATERAL from 02/03/2020 FINDINGS: The heart is mildly enlarged, unchanged. There are mild underlying fibrotic changes. No superimpos ed infiltrate, effusion or pulmonary edema is seen. Degenerative changes are again noted in the thor acic spine and both shoulders. IMPRESSION: No acute abnormality.
--- NOTE | 2020-02-29 16:32 | NUR.NOTE ---
R anterior open ulcer on R lower extremity/calf, draining serous, approx 2cm x 2cm
[2020-02-29 16:44] LABS: Abs Immature Grans 0.03 k/cumm (0.0-0.09); Absolute Basophil Count 0.03 k/cumm (0.0-0.2); Absolute Eosinophil Count 0.21 k/cumm (0.0-0.7); Absolute Lymphocyte Count 2.93 k/cumm (1.2-3.4); Absolute Monocyte Count 0.83 k/cumm (0.11-0.7); Absolute Neutrophil Count 8.49 k/cumm (1.2-6.7); Basophils % 0.2; Eosinophils % 1.7; HCT 28.8 % (36.0-46.0); HGB 9.1 g/dL (12.0-15.5); Immature Grans % 0.2 %; Lymphocytes % 23.4; Mean Corp. HGB Concentration 31.6 g/dL (32.0-36.0); Mean Corpuscular Hemoglobin 27.7 pg (27.0-33.0); Mean Corpuscular Volume 87.8 fL (80-95); Mean Platelet Volume 8.3 fL (8.0-11.0); Monocytes % 6.6; Neutrophils % 67.9; Platelet Count 323 x1000/uL (130-400); RBC 3.28 m/cumm (4.00-5.20); RBC Distribution Width 17.5 % (11.7-14.6)
--- NOTE | 2020-02-29 16:55 | NUR.NOTE ---
fem cath, sterile procedure with assist,pt tolerated well. 200mls clear yellow urine drained
[2020-02-29 17:01] LABS: Bilirubin Negative (Negative); Blood Negative (Negative); Clarity Clear (Clear); Glucose Negative (Negative); Ketones Negative (Negative); Leukocyte Esterase Trace (Negative); Nitrite Negative (Negative); Urobilinogen 0.2 EU/dL (Up TO 0.2)
[2020-02-29 17:02] LABS: Magnesium 1.9 mg/dL (1.8-2.4)
[2020-02-29 17:03] LABS: Troponin I < 0.05 ng/Ml (<0.06)
[2020-02-29 17:05] LABS: ALT 15 U/L (14-59); AST 15 U/L (15-37); Albumin 3.1 g/dL (3.4-5.0); Alkaline Phosphatase 83 U/L (46-116); Anion Gap 7.9 mmol/L (3-11); BUN 21 mg/dL (7-18); Bilirubin, Total 0.3 mg/dL (0.2-1.0); CO2 33.1 mmol/L (21.0-32.0); CREATININE 1.99 mg/dL (0.55-1.02); Calcium 8.9 mg/dL (8.5-10.1); Chloride 99 mmol/L (98-107); Estimated GFR 23.99 (mL/min/1.73m2); Glucose 139 mg/dL (74-106); NT-proBNP 571 pg/mL (<300); Sodium 140 mmol/L (136-145); Total Protein 6.9 g/dL (6.4-8.2)
[2020-02-29 17:10] LABS: Epithelial Cells Negative HPF (Negative); RBC 0-2 HPF (0-2); WBC 20-50 HPF (0-5)
[2020-02-29 17:11] LABS: Bacteria Moderate HPF (Negative); C & S Indicated? Yes; Crystals Negative HPF (Negative); Mucus Negative (Negative); Other Cells Few Transitional (Negative)
--- NOTE | 2020-02-29 17:11 | DI.VRAD_ITS ---
PROCEDURE INFORMATION: Exam: XR Chest, 2 Views Exam date and time: 02/29/2020 4:34 PM Age: 84 years old Clinical indication: Shortness of breath and other: Rales; Patient HX: SOB, rales TECHNIQUE: Imaging protocol: XR of the chest Views: 2 views. COMPARISON: CR XR CHEST 2V PA LATERAL 02/03/2020 12:06 PM FINDINGS: Lungs: Similar appearing streaky opacities in the right mid and right lower lung consistent with atelectasis/scar. No focal consolidation. Pleural space: Unremarkable. No pleural effusion. No pneumothorax. Heart/Mediastinum: Unchanged enlarged cardiomediastinal silhouette. Bones/joints: No acute osseous abnormality. Degenerative changes about the right greater than left acromioclavicular and glenohumeral joints. IMPRESSION: No acute findings. Dictated and Authenticated by: Wilder Mack MD. Ordering:MILLIE Mendoza MD
--- NOTE | 2020-02-29 17:11 | ED.GENADUL_ITS ---
Discharge Plan Disposition Patient Disposition: HOME Condition: Stable Discharge Details Chief Complaint: SOB Clinical Impression: Edema, peripheral, Dizziness, nonspecific, Chronic shortness of breath Primary Care Provider: Larry Moulton ED Provider: Kelly Salvador Home Meds and New Rx's Prescriptions: No Action (DME) blood-glucose meter [OneTouch Ultra2 Meter] kit See Dose Instructions .ROUTE .MEDSUPPLY Qty: 1 RF: 0 donepezil 10 mg tablet 10 mg PO DAILY Qty: 30 RF: 11 (DME) lancets [Prodigy Lancets] 1 EACH misc 1 ea Miscellaneous BID Qty: 100 RF: 6 (DME) lancets [OneTouch Delica Lancets] 1 EACH misc 1 ea Miscellaneous BID Qty: 100 RF: 4 (DME) blood sugar diagnostic [OneTouch Ultra Test] strip 1 ea Miscellaneous BID Qty: 100 RF: 4 simvastatin [Zocor] 40 mg tablet 40 mg PO DAILY Qty: 90 RF: 4 albuterol sulfate [Ventolin HFA] 90 mcg/actuation HFA aerosol inhaler 2 puff Inhalation Q4H PRN PRN (Reason: shortness of breath or wheezing) Qty: 1 RF: 3 metformin 1,000 mg tablet 1,000 mg PO BID Qty: 180 RF: 4 melatonin 3 mg tablet 3 mg PO HS Qty: 90 RF: 3 mirtazapine 15 mg tablet 15 mg PO HS Qty: 90 RF: 1 prazosin 2 mg capsule 2 mg PO HS Qty: 90 RF: 3 furosemide [Lasix] 40 mg tablet 40 mg PO DAILY Qty: 30 RF: 2 (DME) Comfort EZ [place] 33 gauge x 3/16 needle See Rx Instructions .ROUTE .MEDSUPPLY Qty: 100 RF: 4 sertraline 50 mg tablet 50 mg PO DAILY RF: 0 sertraline 100 mg tablet 100 mg PO DAILY Qty: 90 RF: 4 magnesium oxide 400 mg (241.3 mg magnesium) tablet 400 mg PO BID Qty: 60 RF: 0 psyllium husk (aspartame) 3.5 gram Powder In Packet 1 packet PO QDAY RF: 0 acetaminophen [Tylenol] 325 mg Tablet 650 mg PO Q6H PRN PRNQty: 0 RF: 0 Lantus Solostar U-100 Insulin 100 unit/mL (3 mL) insulin pen 16 unit subcut DAILY RF: 0 amoxicillin-pot clavulanate 500-125 mg Tablet 1 tab PO BID Qty: 13 RF: 0 pantoprazole 40 mg Tablet,Delayed Release (Dr/Ec) 40 mg PO DAILY RF: 0 hydroxyzine HCl 25 mg Tablet 25 mg PO DAILY RF: 0 gabapentin 100 mg Capsule 100 mg PO DAILY RF: 0 Discharge Instructions Instructions: Edema (ED) Additional Instructions: Continue 40 mg of Lasix daily. Please use compression stockings. Elevate legs for swelling. Avoid salt in your diet. Followup promptly with your primary care doctor as discussed Return to the emergency room for any increase in dizziness, return of shortness of breath, chest pain, difficulty breathing or for worsening symptoms as discussed if needed sooner Medical Decision Making This is a very pleasant 84-year-old patient presenting to the emergency room per the advice of her medical aid given breath sounds which reveals increase in rails and lower leg swelling which was more predominant per certified nursing assistant instructor. Patient does report chronic lower leg edema. Patient does report some increasing shortness of breath in the last 2 days as well as some increase in dizziness. Patient does report mild dry mouth. Denies any chest pain, difficulty breathing. Patient does report a mild cough. Denies any fevers or chills. Patient does report she has baseline and chronic dizziness. Patient has been eating and drinking without difficulty. Patient reports urinating without difficulty. Patient does complain of lower leg swelling which has been persistent and quite bothersome. Patient now reports a weeping wound on the right anterior pretibial diaz. Nursing care center in for concern of CHF exacerbation due to noted rales and lower leg edema bilaterally. Patient denies any falls, injury or trauma recently. Patient has no other concerns or complaints at this time. Patient has a significant medical history for hyperkalemia, acute renal failure, syncope, dizziness, hypomagnesemia, lower extremity edema, anemia, heart murmur, essential hypertension, type 2 diabetes, depression as well as anxiety and suicidal ideation historically. Patient has had several emergency room visits. Patient currently resides and lives alone with a help of frequent nursing aides. On physical exam at this time patient has very mildly dry oral membranes, breath sounds are equal, no increased respiratory effort. Rales noted diffusely. No abdominal pain on exam, no peritoneal signs. Patient does have bilateral lower leg edema which is present, 2+ pitting edema extending just proximal to the knees. Patient does have a weeping wound noted on the right anterior pretibial diaz. Mild erythema of the lower extremities without obvious cellulitic changes, erythema is symmetrical bilaterally. Distal pulses are intact. Patient's neurologic exam is intact. Patient's mentation is currently clear. Patient's EKG this evening reveals a heart rate of 81, sinus rhythm, first- degree AV block with a NC of 244, QTc noted to be 448. No ST elevation CT present or ST segment changes. Reviewed with Camila Singh. Baseline labs ordered as well as troponin and BNP given patient's complaint of shortness of breath and dizziness. Chest x-ray as well as urinalysis. Initial labs reveal mild leukocytosis which patient has had intermittently per h er medical chart, I do not suspect infection at this time however chest x-ray is pending. Patient has no obvious covid exposure, no fever, malaise or ill feeling, I doubt infection I suspect CHF exacerbation or fluid retention. Patient's renal function is improved compared to her recent testing. Potassium noted to be 3.0. Initial troponin is negative. Given patient has had symptoms for 2 days I do not feel delta troponin is necessary at this time. I doubt ACS based on patient's symptoms, EKG and initial negative troponin. Patient's lower extremity swelling has been chronic per medical chart and somewhat increased in the last few days per her aids, patient has no significant tachycardia, swelling is bilateral and symmetrical, I doubt lower extremity DVT or PE. Patient did have bilateral lower extremity ultrasound on 02 February earlier this month which was unremarkable for DVT bilaterally, patient also had VQ scan which was ultimately low risk for PE. We will plan to give 40 of Lasix IV. Patient is unsure if she has taken her Lasix today but has been compliant with her daily medications she is unsure if she is dosed in the morning or in the evening. Will supplement her potassium with 20 mEq at this time orally. Patient's vital signs continue to remain stable. Patient remains comfortable. Chest x-ray reviewed no acute findings. Will judicial fluids at 250 cc IV norm al saline. Patient taking fluids by mouth, eating without difficulty. Patient continues to feel mildly improved. Patient tolerated 40 of Lasix without difficulty. Patient reports her shortness of breath is entirely improved. Dizziness has returned to baseline. Patient's breath sounds are improving. Patient has no increase in her respiratory effort. Some of patient's dizziness and shortness of breath could have been attributed to mild dehydration, judicial fluids were provided IV and patient did take some oral fluids. Page to PCP to discuss outpatient management planned. Spoke with Xavier Felder covering for PCP, recommend a prompt follow-up in the community in the next few days with her doctor Dr. Moulton. Given patient's low blood pressures throughout her visit although they are so mewhat her baseline I feel uncomfortable giving patient too much additional Lasix on discharge. Patient is already taking 40 mg of Lasix which her kidney function has been improving with use of 40 mg of Lasix daily, patient does have increase in leg swelling per her nursing staff however will recommend compression stockings to be used, elevation of leg avoidance of dependent positioning, salt avoidance and prompt reevaluation with PCP. I feel conservative treatments are most appropriate at this time as the patient has a clear chest x-ray does have a baseline complaints of shortness of breath and dizziness which she does report is mildly improved however BNP is improved compared to her recent labs. Patient's vital signs are stable however she is mildly hypotensive and I am concerned giving her too much Lasix in the community and causing further hypotension. Would prefer close follow-up and beginning with conservative treatments. Patient in no distress at this time feels comfortable discharge home at this time. The patient was stable and requested discharge. Prior to discharge, my usual and customary return precautions were reviewed with the patient - this included follow-up instructions and reasons to return to the Emergency Department if conditions worsens, does not improve as expected, or other new concerns arise. HPI General Date/Time Provider Initiated Documentation: 02/29/20 16:20 . HPI Narrative: This is a pleasant 84-year-old woman presenting from her home where she requires health aide assistance. Health aide sent her in due to her evaluation. Patient reports she feels it was due to the sounds of her breathing. Patient does report 2 days of increasing shortness of breath and increase in dizziness. Patient does report baseline dizziness chronically however does report mild increase in the last few days. Patient denies any headache. Denies any recent falls. Denies vision change. Denies any nasal congestion, sore throat. She does report a mild cough. Denies any fever. Denies any chest or back pain. Patient denies any increase in respiratory effort. Patient reports short of breath is noted when walking downstairs specifically. Patient has been eating and drinking without difficulty. Patient denies any nausea, vomiting or a bdominal pain. Patient denies any dysuria, urgency or frequency of urination. Reports she is urinating normal amounts. Patient does report swelling of her lower legs, unsure if this is her baseline. Per health aide patient was sent in for notable rhonchi is an increase in lower leg edema. Concern of requiring additional diuresis. Related Data Home Medications Medication Instructions Recorded Confirmed lancets [Prodigy Lancets] #100 ea 08/17/15 02/16/20 lancets [OneTouch Delica Lancets] #100 ea 03/22/16 02/16/20 blood-glucose meter #1 each 01/22/19 02/16/20 blood sugar diagnostic #100 strip 03/04/19 02/16/20 simvastatin 40 mg tablet 40 mg PO DAILY #90 tab 05/05/19 02/29/20 acetaminophen [Tylenol] 650 mg PO Q6H PRN PRN #0 tab 08/26/19 02/16/20 donepezil 10 mg tablet 10 mg PO DAILY #30 tab 09/17/19 02/16/20 albuterol sulfate 90 mcg/actuation 2 puff INHALATION Q4H PRN PRN #1 09/22/19 02/16/20 aerosol inhaler inh magnesium oxide 400 mg PO BID #60 tab 10/01/19 02/29/20 metformin 1,000 mg tablet 1,000 mg PO BID #180 tab-cap 11/02/19 02/29/20 psyllium husk (aspartame) 1 packet PO QDAY 11/03/19 02/29/20 furosemide 40 mg tablet 40 mg PO DAILY #30 tab 01/08/20 02/29/20 melatonin 3 mg tablet 3 mg PO HS #90 tab 01/08/20 02/29/20 mirtazapine 15 mg tablet 15 mg PO HS #90 tab 01/08/20 02/29/20 prazosin 2 mg capsule 2 mg PO HS #90 cap 01/08/20 02/29/20 pen needle, diabetic 33 gauge x #100 each 01/11/20 02/16/2002/14 sertraline 100 mg tablet 100 mg PO DAILY #90 tab 01/22/20 02/16/20 sertraline 50 mg tablet 50 mg PO DAILY tab 01/22/20 02/29/20 Lant Solostar U-100 Insulin 16 unit SUBCUT DAILY 02/03/20 02/16/20 amoxicillin-pot clavulanate 1 tab PO BID #13 tab 02/08/20 02/16/20 gabapentin 100 mg PO DAILY 02/29/20 02/29/20 hydroxyzine HCl 25 mg PO DAILY 02/29/20 02/29/20 pantoprazole 40 mg PO DAILY 02/29/20 02/29/20 Previous Rx's Medication Instructions Recorded blood-glucose meter #1 each 01/22/19 blood sugar diagnostic #100 strip 03/04/19 simvastatin 40 mg tablet 40 mg PO DAILY #90 tab 05/05/19 acetaminophen [Tylenol] 650 mg PO Q6H PRN PRN #0 tab 08/26/19 donepezil 10 mg tablet 10 mg PO DAILY #30 tab 09/17/19 albuterol sulfate 90 mcg/actuation 2 puff INHALATION Q4H PRN PRN #1 09/22/19 aerosol inhaler inh magnesium oxide 400 mg PO BID #60 tab 10/01/19 metformin 1,000 mg tablet 1,000 mg PO BID #180 tab-cap 11/02/19 furosemide 40 mg tablet 40 mg PO DAILY #30 tab 01/08/20 melatonin 3 mg tablet 3 mg PO HS #90 tab 01/08/20 mirtazapine 15 mg tablet 15 mg PO HS #90 tab 01/08/20 prazosin 2 mg capsule 2 mg PO HS #90 cap 01/08/20 pen needle, diabetic 33 gauge x #100 each 01/11/2002/14 sertraline 100 mg tablet 100 mg PO DAILY #90 tab 01/22/20 amoxicillin-pot clavulanate 1 tab PO BID #13 tab 02/08/20 Allergies Allergy/AdvReac Type Severity Reaction Status Date / Time iodine Allergy Unknown Unverified 02/16/20 08:33 General Stated Complaint: SOB RASHEL: 3 Review of Systems All systems reviewed & are unremarkable except as noted in HPI and below Constitutional Constitutional: Denies chills, Denies fever(s), Denies headache(s) and Denies malaise ENT Ears, Nose, Mouth, and Throat: Reports dizziness, Denies headache(s), Denies nasal congestion, Denies nasal discharge, Denies sinus pain, Denies sinus pressure and Denies sore throat Cardiovascular Cardiovascular: Denies chest pain, Denies lightheadedness, Denies radiating jaw, neck or arm pain, Denies palpitations and Reports dyspnea Respiratory Respiratory: Reports cough, Reports dyspnea, Denies stridor and Denies wheezing Gastrointestinal Gastrointestinal: Denies abdominal pain, Denies diarrhea, Denies nausea and Denies vomiting Genitourinary Genitourinary: Denies hematuria, Denies urinary hesitancy and Denies urinary urgency Musculoskeletal Musculoskeletal: Denies numbness, Denies stiffness and Denies tingling Neurologic Neurologic: Denies abnormal speech, Reports dizziness, Denies headache(s), Denies numbness and Denies tingling Endocrine Endocrine: Denies palpitations Allergic/Immunologic Allergic/Immunologic: Denies wheezing [facility] Medical History Acute hypokalemia (Resolved) Anxiety (Chronic) Depression (Acute) Diabetes mellitus (Inactive) Times 3 years. History of CVA (cerebrovascular accident) (Inactive 12/02/91) a. 1991. History of DVT (deep vein thrombosis) (Inactive) a. History of right DVT and PE. b. IVC filter placed 40 years ago. Iatrogenic pulmonary embolism and infarction (Resolved) IVC clip-1974 Inappropriate behavior (Acute) Lower extremity edema (Chronic) Mild cognitive impairment with memory loss (Chronic) Osteoarthrosis (Inactive) both hips, right greater than left Osteopenia (Inactive) Palliative care patient (Chronic) Panic attack (Inactive) Rupture of tendon of biceps, long head (Resolved 10/31/07) UTI (urinary tract infection) (Inactive) Surgical History History of bilateral salpingo-oophorectomy (Inactive) History of Surgical Procedure (Inactive) a. Cholecystectomy. b. Lysis of adhesions. c. Hysterectomy. d. Oophorectomy. 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 Pets and animals: No What is your relationship status?: How often do you talk on the phone with friends or family?: never How often do you get together with friends or relatives?: twice per week How often do you attend sikhism or gnosticist services?: 4 or more times per year Panel score (0-1 are the most socially isolated patients): 1 What type of physical activity do you participate in: walking and irregular exercise Duration: < 15 minutes/day Frequency: 1-2 times per week Marielle/Rastafarian: Restorationism Special marielle needs: No Seatbelt use: always Water heater temp set <120 deg: Yes Working smoke detector in home: Yes Fire extinguisher in home: Yes Do you feel safe at home: Yes Do you feel safe in your relationship?: Yes Additional Social history: in 1998. Lives in [email or web address]. Moved in 2012. Has one granddaughter, only living relative; granddaughter lives in [place]. Since fall, no longer as social. Used to sit on porch of [place] and greet people. Now staying to herself in her room. Not socializing in communal areas. She escaped [place] into [facility] alone at the age of 16. 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 They had 1 son and then [place] the [place] he was given the option as a concentration camp survivor. Exam Narrative Exam Narrative: CONST: Healthy appearing patient, in no acute distress. Alert and oriented. HENMT: Head nomocephalic, normal to inspection. Atraumatic. Hearing grossly normal. External ear canal no erythema or swelling. TM normal bilaterally. Nose normal to inspection. No rhinnorhea. Normal facial exam. Oral mucosa normal. Tounge normal. Dentition normal. Normal posterior oropharynx. Uvula midline. EYES: General normal appearance. Alignment normal. Eyelids normal. Conjunctiva normal. Sclera normal. PERRL. NECK: Normal visual inspection. FROM. No lymphadenopathy. Trachea midline. No Midline tenderness. CHEST: Normal insepection of the chest. RESP: Normal respiratory effort. Speaking full sentences. No cough. No wheezing. No retractions. Mild rales noted diffusely on auscaltation. Breath sound equal and present bilaterally. CARDIO: No JVD. Normal PMI. Regular Rate. Regular Rhythm. Normal peripheral pulses. Notable holosystolic murmur. GI: Normal inspection of abdomen. No distension. Soft. Nontender. Bowel sounds present in all 4 quadrants. No rebound. No gaurding. MUSCULOSKELETAL: Normal Gait. FROM of all extremities. Distal neurovascularly intact. Sensation intact distally. bilateral pitting edema 2+ extending just proximal to knees, notably posterior. pulses intact and equal bilaterally. SKIN: Normal. Dry. No rashes. mild erythema of LE. 1cm weeping wound noted on pretibial mid diaz, RLE. NEURO: Alert and awake. Speech clear. Alert and oriented x 3. Speech is clear. Cranial nerves intact as tested III - XI. Normal [id number] test. No pronator drift. No Nystagmus. Strength intact in all extremities. Sensation intact in all extremities. PSYCH: Normal affect. Cooperative. Course Vital Signs Vital signs: Vital Signs Temperature 36.7 C 02/29/20 16:12 Pulse 85 02/29/20 16:12 Respiratory Rate 32 H 02/29/20 16:12 Blood Pressure 124/54 L 02/29/20 16:12 Pulse Oximetry 94 L 02/29/20 16:12 Temperature 36.7 C 02/29/20 16:12 Pulse 85 02/29/20 16:12 Respiratory Rate 32 H 02/29/20 16:12 Respiratory Effort 02/29/20 16:19 Respiratory Depth Normal 02/29/20 16:19 Respiratory Pattern Tachypnea 02/29/20 16:19 Blood Pressure 124/54 L 02/29/20 16:12 Pulse Oximetry 94 L 02/29/20 16:12 Oxygen Delivery Method Room Air 02/29/20 16:12 Oxygen Flow Rate 0 02/29/20 16:12 Lab/Test Results Lab/Test Results: Laboratory Tests Range/Units 02/29/20 02/29/20 02/29/20 16:35 16:35 16:35 WBC (4.4-10.8) k/cumm 12.50 H RBC (4.00-5.20) m/cumm 3.28 L Hgb (12.0-15.5) g/dL 9.1 L Hct (36.0-46.0) % 28.8 L MCV (80-95) fL 87.8 MCH (27.0-33.0) pg 27.7 MCHC (32.0-36.0) g/dL 31.6 L RDW (11.7-14.6) % 17.5 H Plt Count (130-400) x1000/uL 323 D MPV (8.0-11.0) fL 8.3 Immature Gran % % 0.2 Neutrophils % 67.9 Lymphocytes % 23.4 Monocytes % 6.6 Eosinophils % 1.7 Basophils % 0.2 Absolute Neutrophils (1.2-6.7) k/cumm 8.49 H Absolute Lymphocytes (1.2-3.4) k/cumm 2.93 Absolute Monocytes (0.11-0.7) k/cumm 0.83 H Absolute Eosinophils (0.0-0.7) k/cumm 0.21 Absolute Basophils (0.0-0.2) k/cumm 0.03 Sodium (136-145) mmol/L 140 Potassium (3.5-5.1) mmol/L 3.0 L Chloride (98-107) mmol/L 99 Carbon Dioxide (21.0-32.0) mmol/L 33.1 H Anion Gap (3-11) mmol/L 7.9 BUN (7-18) mg/dL 21 H Creatinine (0.55-1.02) mg/dL 1.99 H Estimated GFR/1.73 m2 (mL/min/1.73m2) 23.99 Glucose (74-106) mg/dL 139 H Calcium (8.5-10.1) mg/dL 8.9 Magnesium (1.8-2.4) mg/dL 1.9 Total Bilirubin (0.2-1.0) mg/dL 0.3 AST (15-37) U/L 15 ALT (14-59) U/L 15 Alkaline Phosphatase (46-116) U/L 83 Troponin I (<0.06) ng/Ml < 0.05 NT-Pro-B Natriuret Pep (<300) pg/mL 571 H Total Protein (6.4-8.2) g/dL 6.9 Albumin (3.4-5.0) g/dL 3.1 L Urine Color (Yellow) Urine Clarity (Clear) Urine pH (5-8) Ur Specific [place] (1.005-1.025) Urine Protein (Negative) mg/dL Urine Ketones (Negative) mg/dL Urine Blood (Negative) Urine Nitrite (Negative) Urine Bilirubin (Negative) Urine Urobilinogen (Up TO 0.2) EU/dL Ur Leukocyte Esterase (Negative) Urine Glucose (Negative) mg/dL Range/Units 02/29/20 16:48 WBC (4.4-10.8) k/cumm RBC (4.00-5.20) m/cumm Hgb (12.0-15.5) g/dL Hct (36.0-46.0) % MCV (80-95) fL MCH (27.0-33.0) pg MCHC (32.0-36.0) g/dL RDW (11.7-14.6) % Plt Count (130-400) x1000/uL MPV (8.0-11.0) fL Immature Gran % % Neutrophils % Lymphocytes % Monocytes % Eosinophils % Basophils % Absolute Neutrophils (1.2-6.7) k/cumm Absolute Lymphocytes (1.2-3.4) k/cumm Absolute Monocytes (0.11-0.7) k/cumm Absolute Eosinophils (0.0-0.7) k/cumm Absolute Basophils (0.0-0.2) k/cumm Sodium (136-145) mmol/L Potassium (3.5-5.1) mmol/L Chloride (98-107) mmol/L Carbon Dioxide (21.0-32.0) mmol/L Anion Gap (3-11) mmol/L BUN (7-18) mg/dL Creatinine (0.55-1.02) mg/dL Estimated GFR/1.73 m2 (mL/min/1.73m2) Glucose (74-106) mg/dL Calcium (8.5-10.1) mg/dL Magnesium (1.8-2.4) mg/dL Total Bilirubin (0.2-1.0) mg/dL AST (15-37) U/L ALT (14-59) U/L Alkaline Phosphatase (46-116) U/L Troponin I (<0.06) ng/Ml NT-Pro-B Natriuret Pep (<300) pg/mL Total Protein (6.4-8.2) g/dL Albumin (3.4-5.0) g/dL Urine Color (Yellow) Yellow Urine Clarity (Clear) Clear Urine pH (5-8) 6.0 Ur Specific [place] (1.005-1.025) 1.010 Urine Protein (Negative) mg/dL Negative Urine Ketones (Negative) mg/dL Negative Urine Blood (Negative) Negative Urine Nitrite (Negative) Negative Urine Bilirubin (Negative) Negative Urine Urobilinogen (Up TO 0.2) EU/dL 0.2 Ur Leukocyte Esterase (Negative) Trace H Urine Glucose (Negative) mg/dL Negative
[2020-02-29] MEDS: Potassium Chloride 20 MEQ TABCR PO (18:13)
[2020-02-29] MEDS: Furosemide 40 MG/4 ML VIAL IVP (18:14)
--- NOTE | 2020-02-29 18:29 | NUR.NOTE ---
report given to DREW Dietrich
[2020-02-29] MEDS: Normal Saline 250 ML 1000 ML IV (18:40)
--- NOTE | 2020-02-29 20:13 | NUR.NOTE ---
1930: pt provided with a snack Nursing Note:
== END 2020-02-29 20:56 | disposition home or self-care (01) ==
PROVIDERS: Emergency Provider Physician Assistant; PCP Family Medicine
DX: R60.0 Localized edema (principal); R42 Dizziness and giddiness; E87.6 Hypokalemia; R06.02 Shortness of breath; I95.9 Hypotension, unspecified; E11.9 Type 2 diabetes mellitus without complications; Z79.4 Long term (current) use of insulin
CPT/HCPCS: 36415; 80053; 87077; 93005; 96374; 99284; 71046; 81003; 81015; 83735; 83880; 84484; 85025; 87086; 87186; 93010; J1940

== ENCOUNTER 2020-08-19 14:54 | Outpatient (REF) | payer MEDICARE, SELFPAY | END 2020-08-19 15:14 | LOC: LBN 14:54 | PROVIDERS: PCP Nurse Practitioner; Visit Provider Family Medicine | DX: L97.211 Non-pressure chronic ulcer of right calf limited to breakdown of skin (principal); E11.622 Type 2 diabetes mellitus with other skin ulcer | CPT/HCPCS: 87077; 87070; 87186; 87205 ==

== ENCOUNTER 2020-11-09 11:06 | Inpatient (IN) | payer MEDICARE, SELFPAY ==
[2020-11-09] VITALS (23 sets, daily range): BP systolic 116–132; BP diastolic 58–74; PULSE 70–103; RESP 15–37; TEMP 36.5–37; O2SAT 93–100
--- NOTE | 2020-11-09 11:15 | RT.EKG_ITS ---
APPROVED REPORT Exam: Resting ECG Patient Location: E HR:80 bpm ECG Measurements Heart Rate 80 AXIS WV [id number] P [id number] QRSd 100 QRS 16 QT 382 T -30 QTc 441 Conclusion Atrial fibrillation. Low voltage, precordial leads. Nonspecific repol abnormality, diffuse leads.
--- NOTE | 2020-11-09 11:30 | DI.CT_ITS ---
EXAM: CT HEAD WO CLINICAL HISTORY: Dizziness, L eye vision change. TECHNIQUE: Imaging Protocol: Axial computed tomography images with coronal and sagittal reformatted images were created and reviewed COMPARISON: CT CT HEAD WO from 08/23/2019 FINDINGS: There are no skull fractures. No fluid in the visualized paranasal sinuses and mastoid air cells. However, there is no abnormal mass in the nasopharynx evident. This has been previously documented o n MRI study. There is no evidence of intracranial hemorrhage, mass effect, or shift of midline structures. There are no extra-axial fluid collections. The ventricles are not enlarged or shifted and there is no blo od within the ventricular system nor within the basal cisterns. IMPRESSION: No acute intracranial findings on this noninfused CT scan of the brain. 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 Measures approximately 2 x 2.5 centimetres. ENT consultat ion recommended RADIATION DOSE DELIVERED: 642.11mGy.cm Total DLP DATA REPOSITORY: All CT scans at this facility are submitted to the National Radiology Data Registry (NRDR) Dose Index Registry (DIR) with the [employer] (A[employer]). RADIATION OPTIMIZATION: All CT scans at this facility use at least one of these dose optimization te chniques: automated exposure control; mA and/or kV adjustment per patient size (includes targeted exa ms where dose is matched to clinical indication); or iterative reconstruction.
--- NOTE | 2020-11-09 11:30 | DI.RAD_ITS ---
EXAM: XR CHEST 2V PA LATERAL CLINICAL HISTORY: Dizziness. TECHNIQUE: 2D digital imaging was performed. COMPARISON: CR XR CHEST 2V PA LATERAL from 02/03/2020 FINDINGS: Mild cardiomegaly. Mediastinum not widened Lungs are clear. No infiltrates nor pleural effusions. IMPRESSION: No acute pulmonary findings DATA REPOSITORY: RADIATION DOSE DELIVERED:
--- NOTE | 2020-11-09 11:42 | ED.GENADUL_ITS ---
Discharge Plan Disposition Patient Disposition: [facility] INPATIENT Condition: Stable Discharge Details Clinical Impression: Hypomagnesemia, Hypokalemia, Acute kidney injury Admit Date/Time: 11/09/20 13:55 Admit Provider: Braxton Gilman Attending Provider: Braxton Gilman Primary Care Provider: Ce Garcia ED Provider: Polo Davis Discharge Data Discharge Date/Time-TO BE ENTERED AT DEPARTURE: 11/09/20 15:12 Medical Decision Making 85-year-old female brought by EMS. She states she has had 2 days of dizziness and unsteadiness of gait, which has caused her to fall at least once in the bathroom and strike her left forehead without loss of consciousness. She also notes left eye vision changes over the same period of time. She called EMS today and was brought to the ER. They noted that she had slurred speech and a glucose in the 50s. They gave her glucose with improvement of the speech changes. Her sense of dizziness and left eye vision changes persisted. She has a history of distant CVA, hypertension, diabetes, previous DVT, not currently anticoagulated. She rushed to the ER awake interactive. She appears dehydrated with dry mucous membranes. Of note, visual acuity is to hand waving only left eye. Differential gnosis includes recurrent stroke, dehydration, electrolyte abnormalities. Patient had IV access established, placed on a secured entrance monitor, referred for EKG, chest x-ray, CT scan of the head and laboratory analysis. Labs reveal chronic anemia with a hematocrit of 29, white blood cell count is 15, platelets 330. Sodium 143, potassium 2.5, chloride 104, bicarb 23, BUN 44, creatinine 3.0. Magnesium is 1.5. Troponin negative. CT scan of the head without acute findings, see formal report. With the patient's dehydration, acute renal failure and electrolyte abnormalities, she will require admission to the hospitalist service. HPI General Mode of arrival: EMS . Date/Time Provider Initiated Documentation: 11/09/20 11:21 . Limitations to Documentation: no limitations . Information obtained by: patient and EMS . History of Present Illness 85 year old F presents to the emergency department with the chief complaint of Dizziness, fell at home, left eye decreased vision, described as moderate, Quality is described as dull, and is localized to the head. Patient started experiencing this day(s) and it has been constant. No relieving factors improve symptom(s), No exacerbating factors reported . Patient notes other (Fell at home, L frontal contusion, no LOC); denies headaches. Patient did receive the following treatments prior to arrival, other (Home health nurse for lower extremity ulcers) Related Data Home Medications Medication Instructions Recorded Confirmed lancets [Prodigy Lancets] #100 ea 08/17/15 11/09/20 lancets [OneTouch Delica Lancets] #100 ea 03/22/16 11/09/20 blood-glucose meter #1 each 01/22/19 11/09/20 acetaminophen [Tylenol] 650 mg PO Q6H PRN PRN #0 tab 08/26/19 11/09/20 albuterol sulfate 90 mcg/actuation 2 puff INHALATION Q4H PRN PRN #1 09/22/19 11/09/20 aerosol inhaler inh metformin 1,000 mg tablet 1,000 mg PO BID #180 tab-cap 11/02/19 11/09/20 psyllium husk (aspartame) 1 packet PO QDAY 11/03/19 11/09/20 melatonin 3 mg tablet 3 mg PO HS #90 tab 01/08/20 11/09/20 prazosin 2 mg capsule 2 mg PO HS #90 cap 01/08/20 11/09/20 pen needle, diabetic 33 gauge x #100 each 01/11/20 11/09/2002/14 sertraline 100 mg tablet 100 mg PO DAILY #90 tab 01/22/20 11/09/20 Lantus Solostar U-100 Insulin 16 unit SUBCUT DAILY 02/03/20 11/09/20 gabapentin 100 mg PO DAILY 02/29/20 11/09/20 hydroxyzine HCl 25 mg PO DAILY 02/29/20 11/09/20 pantoprazole 40 mg PO DAILY 02/29/20 11/09/20 magnesium oxide 400 mg (241.3 mg 400 mg PO BID #180 tab 03/22/20 11/09/20 magnesium) tablet mirtazapine 15 mg tablet 15 mg PO HS #90 tab 07/06/20 11/09/20 simvastatin 40 mg tablet 40 mg PO DAILY #90 tab 07/19/20 11/09/20 amoxicillin 500 mg-potassium 1 tab PO TID #30 tab 08/04/20 11/09/20 clavulanate 125 mg tablet furosemide 20 mg tablet 20 mg PO DAILY #90 tab 10/07/20 11/09/20 blood sugar diagnostic #100 each 10/14/20 11/09/20 donepezil 10 mg tablet 10 mg PO DAILY #90 tab 10/18/20 11/09/20 sertraline 50 mg tablet 50 mg PO DAILY #90 tab 10/18/20 11/09/20 doxycycline hyclate 100 mg tablet 100 mg PO BID #20 tab 11/01/20 11/09/20 Previous Rx's Medication Instructions Recorded blood-glucose meter #1 each 01/22/19 acetaminophen [Tylenol] 650 mg PO Q6H PRN PRN #0 tab 08/26/19 albuterol sulfate 90 mcg/actuation 2 puff INHALATION Q4H PRN PRN #1 09/22/19 aerosol inhaler inh metformin 1,000 mg tablet 1,000 mg PO BID #180 tab-cap 11/02/19 melatonin 3 mg tablet 3 mg PO HS #90 tab 01/08/20 prazosin 2 mg capsule 2 mg PO HS #90 cap 01/08/20 pen needle, diabetic 33 gauge x #100 each 01/11/20 3 sertraline 100 mg tablet 100 mg PO DAILY #90 tab 01/22/20 magnesium oxide 400 mg (241.3 mg 400 mg PO BID #180 tab 03/22/20 magnesium) tablet mirtazapine 15 mg tablet 15 mg PO HS #90 tab 07/06/20 simvastatin 40 mg tablet 40 mg PO DAILY #90 tab 07/19/20 amoxicillin 500 mg-potassium 1 tab PO TID #30 tab 08/04/20 clavulanate 125 mg tablet furosemide 20 mg tablet 20 mg PO DAILY #90 tab 10/07/20 blood sugar diagnostic #100 each 10/14/20 donepezil 10 mg tablet 10 mg PO DAILY #90 tab 10/18/20 sertraline 50 mg tablet 50 mg PO DAILY #90 tab 10/18/20 doxycycline hyclate 100 mg tablet 100 mg PO BID #20 tab 11/01/20 Allergies Allergy/AdvReac Type Severity Reaction Status Date / Time iodine Allergy Unknown Unverified 11/09/20 11:14 General Stated Complaint: Diabetes RASHEL: 3 Review of Systems Narrative: Loose stool for 2 weeks. Decreased appetite. 8 systems reviewed and otherwise negative, see HPI PFSH Medical History (Updated 11/09/20 @ 14:33 by Polo Davis MD) Acute hypokalemia Anxiety Bilateral lower extremity edema worse than last visit Blistering of skin due to chronic pedal edema Dr Moulton managing diuretics; home health in to wrap legs Counseling regarding advance directives and goals of care would still be hospitalized but limited interventions and procedures, no ICU, no transfer doesn't mind SNF; liked her last stay at [facility] H and Depression Diabetes mellitus Times 3 years. DNI (do not intubate) DNR (do not resuscitate) History of CVA (cerebrovascular accident) (12/02/91) a. 1991. History of DVT (deep vein thrombosis) a. History of right DVT and PE. b. IVC filter placed 40 years ago. Iatrogenic pulmonary embolism and infarction IVC clip-1974 Inappropriate behavior Lower extremity edema Mild cognitive impairment with memory loss Osteoarthrosis both hips, right greater than left Osteopenia Palliative care patient Panic attack POLST (Physician Orders for Life-Sustaining Treatment) DPOA lives in [place]; form done 03/23/20; very clearly DNR/DNI Rupture of tendon of biceps, long head (10/31/07) UTI (urinary tract infection) Surgical History History of bilateral salpingo-oophorectomy History of Surgical Procedure a. Cholecystectomy. b. Lysis of adhesions. c. Hysterectomy. d. Oophorectomy. Status post abdominal hysterectomy Status post breast biopsy Status post cholecystectomy Family History Son , age 52 Sudden cardiac arrest Father , killed by Nazis in front of her when she was 10 yo Murder Social History Smoking/Tobacco Use Status: Former Tobacco Use Tobacco: How many years used: 1 Second Hand Exposure: Yes Smoking risk assessment performed?: Yes Alcohol Intake: never Drug use: Never Substance use type: does not use Caregiver/Support person: No Household members: none Housing: apartment Number of Children: 1 number of grandchildren: 1 Communication Needs: Corrective Lenses Education Level: middle school Do you need help understanding health information?: Always 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 [employer] Pets and animals: No What is your relationship status?: How often do you talk on the phone with friends or family?: never How often do you get together with friends or relatives?: twice per week How often do you attend yazidism or jehovah's witness services?: 4 or more times per year Panel score (0-1 are the most socially isolated patients): 1 What type of physical activity do you participate in: walking and irregular exercise Duration: < 15 minutes/day Frequency: 1-2 times per week Marielle/Buddhist: Confucianist Special marielle needs: No Seatbelt use: always Water heater temp set <120 deg: Yes Working smoke detector in home: Yes Fire extinguisher in home: Yes Do you feel safe at home: Yes Do you feel safe in your relationship?: Yes Additional Social history: in 1998. Lives in [place]. Moved in 2012. Has one granddaughter, only living relative; granddaughter lives in [place]. Since fall, no longer as social. Used to sit on porch of [employer] and greet people. Now staying to herself in her room. Not socializing in communal areas. She escaped [place] into [place] [facility] alone at the age of 16. 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 They had 1 son and then [place] the [place] as he was given the option as a concentration camp survivor. Exam Narrative Exam Narrative: GEN: awake, alert, oriented 3. Pleasant, well groomed, interactive. HEAD: Normocephalic, left frontal ecchymosis, minimal swelling, no bony instability or tenderness. ENT: Mucous membranes dry, oropharynx unremarkable, External ear exam unremarkable EYES: PERRL, EOMI, rectal identifies number of fingers right, identifies hand waving left NECK: Full ROM, no JOSIAH, no menigismus CHEST/RESP: Nontender, clear to auscultation bilateral, no wheeze/rhonchi/rales CARDIOVASCULAR: Regular, loud holosystolic murmur best at left upper sternal border. 2+ Rad pulse bilateral ABDOMEN: Soft, nontender, no mass. +Bowel sounds EXT: Full ROM, bilateral edematous changes with right greater than left dependent shallow skin ulcerations that are initially dressed. Neuro: Grossly normal neurologic exam, conversant, interactive. Psych: Speech fluent, thoughts congruent, affect normal Course Vital Signs Vital signs: Vital Signs Temperature 36.5 C 11/09/20 11:08 Pulse 80 11/09/20 11:08 Respiratory Rate 20 11/09/20 11:08 Blood Pressure 116/74 11/09/20 11:08 Pulse Oximetry 96 11/09/20 11:08 Temperature 36.5 C 11/09/20 11:08 Temperature Source Skin 11/09/20 11:08 Pulse 80 11/09/20 11:08 Respiratory Rate 20 11/09/20 11:08 Respiratory Effort Non-Labored 11/09/20 11:14 Blood Pressure 116/74 11/09/20 11:08 Blood Pressure Position Supine 11/09/20 11:08 Pulse Oximetry 96 11/09/20 11:08 Oxygen Delivery Method Room Air 11/09/20 11:08 Oxygen Flow Rate 0 11/09/20 11:08 Pain Level 5 11/09/20 11:08
[2020-11-09 11:52] LABS: Abs Immature Grans 0.08 10^3/uL (0.0-0.06); Absolute Eosinophil Count 0.06 10^3/uL (0.0-0.7); Absolute Monocyte Count 0.52 10^3/uL (0.1-0.8); Absolute Neutrophil Count 12.92 10^3/uL (1.2-6.7); Basophils % 0.3; Eosinophils % 0.4; HCT 29.2 % (36.0-46.0); HGB 9.3 g/dL (11.2-15.7); Immature Grans % 0.5; Lymphocytes % 12.8; MCHC 31.8 % (32.0-36.0); MCV 84.6 fL (80-95); MPV 8.8 fL (8.0-11.0); Monocytes % 3.3; Neutrophils % 82.7; Nucleated RBC 0 %; Platelet Count 330 10^3/uL (130-400); RBC 3.45 10^6/uL (3.93-5.22); RDW 18.2 % (11.7-14.6); WBC 15.62 10^3/uL (4.4-10.8)
[2020-11-09 11:53] LABS: Absolute Basophil Count 0.05 10^3/uL (0.0-0.2)
[2020-11-09 12:10] LABS: ALT 12 U/L (14-59); AST 16 U/L (15-37); Albumin 3.2 g/dL (3.4-5.0); Alkaline Phosphatase 119 U/L (46-116); Anion Gap 15.2 mmol/L (3-11); BUN 44 mg/dL (7-18); Bilirubin, Total 0.4 mg/dL (0.2-1.0); CO2 23.8 mmol/L (21.0-32.0); CREATININE 3.01 mg/dL (0.55-1.02); Calcium 8.3 mg/dL (8.5-10.1); Chloride 104 mmol/L (98-107); Estimated GFR 14.85 (mL/min/1.73m2); Glucose 88 mg/dL (74-106); Magnesium 1.5 mg/dL (1.8-2.4); Sodium 143 mmol/L (136-145); Total Protein 7.5 g/dL (6.4-8.2)
[2020-11-09 12:12] LABS: Troponin I < 0.05 ng/mL (<0.06)
[2020-11-09 12:13] LABS: Potassium 2.5 mmol/L (3.5-5.1)
[2020-11-09 12:23] LABS: INR 1.1 (0.9-1.1); PTT Activated 22.1 sec (21.0-27.5)
[2020-11-09] MEDS: MAGNESIUM SULFATE 2 GM/50 ML BAG IVPB (12:56)
[2020-11-09] MEDS: Potassium Chloride Liquid 20 MEQ PKT 10 MEQ PO (12:56)
[2020-11-09] MEDS: POTASSIUM CHLORIDE 20 MEQ/100 ML BAG 50 MEQ IVPB (12:56)
--- NOTE | 2020-11-09 13:07 | NUR.NOTE ---
pt ate 1/2 lunchNursing Note:
[2020-11-09 13:25] LABS: Bilirubin Negative (Negative); Blood Trace-lysed (Negative); Glucose Negative (Negative); Ketones Negative (Negative); Leukocyte Esterase Negative (Negative); Nitrite Negative (Negative); Specific Gravity 1.025 (1.005-1.025); Urobilinogen 0.2 EU/dL (Up TO 0.2); pH 5.5 (5-8)
[2020-11-09 13:29] LABS: Clarity Sl Cloudy (Clear)
[2020-11-09 13:32] LABS: Bacteria Negative HPF (Negative); C & S Indicated? No; Casts Negative LPF (Negative); Epithelial Cells Negative HPF (Negative); Mucus Negative (Negative); Other Cells Rare Renal (Negative); RBC 0-2 HPF (0-2); WBC 0-2 HPF (0-5)
[2020-11-09] MEDS: Normal Saline 1,000 ML 150 ML IV (13:52)
[2020-11-09 13:54] LABS: C Diff PCR Negative (Negative)
[2020-11-09] MEDS: Aspirin 325 MG TAB PO (14:40)
[2020-11-09 15:37] LABS: Crystals Moderate Amorphous HPF (Negative)
--- NOTE | 2020-11-09 15:53 | W.PM.HP.N ---
Date of service: 11/09/20 Time of Service: 15:53 Assessment and Plan Assessment and plan (1) Acute kidney injury: Status: Acute Assessment and plan: admit to med/surg, on telemetry. IV fluids, avoid nephrotoxic drugs, renal dosing. renal ultrasound 02/04/20 IMPRESSION: 1. Dilatation of the left renal collecting system which has a similar appearance compared to the CT scan from 09/18/2019. This may represent an extrarenal pelvis. Follow-up as clinically appropriate. 2. Incomplete evaluation of the urinary bladder as the patient emptied her bladder prior to the examination. (2) Hypokalemia: Status: Acute Assessment and plan: replete and follow replete magnesium also (3) Dizziness: Status: Acute Assessment and plan: with a previous history and hospitalization for dizziness with no clear etiology. imaging at that time r/o acute CVA, her dizziness did not affect gait stability or cause unsteadiness. she was not orthostatic. meclizine as needed. (4) Non-insulin dependent type 2 diabetes mellitus: Status: Chronic Assessment and plan: diabetic diet blood sugar check ac with coverage hemoglobin A1C in 07.[address] Gallegos History of Present Illness History of Present Illness Chief Complaint: dizziness Narrative: patient presents to ED for 2 day history of dizziness, unsteady gait with fall involving a head injury, no LOC. work up in the ED shows JAIMEE and hypokalemia, she was also noted to be hypoglycemic, and had slurred speech and a glucose in the 50s. EMS gave her glucose with improvement of the speech changes. Her sense of dizziness and left eye vision changes persisted. Labs reveal chronic anemia with a hematocrit of 29, white blood cell count is 15, platelets 330. Sodium 143, potassium 2.5, chloride 104, bicarb 23, BUN 44, creatinine 3.0. Magnesium is 1.5. Troponin negative. CT scan of the head without acute findings. She was started on IV fluids, potassium and magnesium repleted. she will be admitted to med/surg for further monitoring and management. Review of Systems Constitutional Constitutional: Denies fever(s), Denies headache(s) and Reports weakness (generalized) Eyes Eyes: Reports loss of vision (left eye, sees shadows, no pain or drainage, 3 weeks) ENT Ears, Nose, Mouth, and Throat: Reports vertigo, Reports dizziness and Denies headache(s) Cardiovascular Cardiovascular: Denies chest pain, Denies syncope and Denies dyspnea Respiratory Respiratory: Denies cough and Denies dyspnea Gastrointestinal Gastrointestinal: Denies abdominal pain, Denies nausea and Denies vomiting Musculoskeletal Musculoskeletal: Denies arthralgias and Denies muscle weakness Integumentary/Breasts Skin/Breast: Reports lesions (bilateral lower) Neurologic Neurologic: Denies confusion, Reports vertigo, Reports dizziness, Denies syncope, Denies headache(s), Reports loss of vision (left eye, sees shadows, no pain or drainage, 3 weeks) and Reports weakness (generalized) Psychiatric Psychiatric: Denies confusion [facility] Medical History (Updated 11/09/20 @ 14:33 by Polo Davis MD) Acute hypokalemia Anxiety Bilateral lower extremity edema worse than last visit Blistering of skin due to chronic pedal edema Dr Moulton managing diuretics; home health in to wrap legs Counseling regarding advance directives and goals of care would still be hospitalized but limited interventions and procedures, no ICU, no transfer doesn't mind SNF; liked her [facility] stay at [facility] H and Depression Diabetes mellitus Times 3 years. DNI (do not intubate) DNR (do not resuscitate) History of CVA (cerebrovascular accident) (12/02/91) a. 1991. History of DVT (deep vein thrombosis) a. History of right DVT and PE. b. IVC filter placed 40 years ago. Iatrogenic pulmonary embolism and infarction IVC clip-1974 Inappropriate behavior Lower extremity edema Mild cognitive impairment with memory loss Osteoarthrosis both hips, right greater than left Osteopenia Palliative care patient Panic attack POLST (Physician Orders for Life-Sustaining Treatment) DPOA lives in [place]; form done 03/23/20; very clearly DNR/DNI Rupture of tendon of biceps, long head (10/31/07) UTI (urinary tract infection) Surgical History History of bilateral salpingo-oophorectomy History of Surgical Procedure a. Cholecystectomy. b. Lysis of adhesions. c. Hysterectomy. d. Oophorectomy. Status post abdominal hysterectomy Status post breast biopsy Status post cholecystectomy Family History Son , age 52 Sudden cardiac arrest Father , killed by Nazis in front of her when she was 10 yo Murder Social History Smoking/Tobacco Use Status: Former Tobacco Use Tobacco: How many years used: 1 Second Hand Exposure: Yes Smoking risk assessment performed?: Yes Alcohol Intake: never Drug use: Never Substance use type: does not use Caregiver/Support person: No Household members: none Housing: apartment Number of Children: 1 number of grandchildren: 1 Communication Needs: Corrective Lenses Education Level: middle school Do you need help understanding health information?: Always 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 Pets and animals: No What is your relationship status?: How often do you talk on the phone with friends or family?: never How often do you get together with friends or relatives?: twice per week How often do you attend jehovah's witness or buddhism services?: 4 or more times per year Panel score (0-1 are the most socially isolated patients): 1 What type of physical activity do you participate in: walking and irregular exercise Duration: < 15 minutes/day Frequency: 1-2 times per week Marielle/Uatsdin: Moravian Special marielle needs: No Seatbelt use: always Water heater temp set <120 deg: Yes Working smoke detector in home: Yes Fire extinguisher in home: Yes Do you feel safe at home: Yes Do you feel safe in your relationship?: Yes Additional Social history: in 1998. Lives in [place]. Moved in 2012. Has one granddaughter, only living relative; granddaughter lives in [place]. Since fall, no longer as social. Used to sit on porch of [employer] and greet people. Now staying to herself in her room. Not socializing in communal areas. She [place] alone at the age of 16. 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 They had 1 son and then [place] the [place] as he was given the option as a concentration camp survivor. Meds Home Medications and Allergies Home Medications Medication Instructions Recorded Confirmed Type lancets [Prodigy Lancets] #100 ea 08/17/15 11/09/20 History lancets [OneTouch Delica Lancets] #100 ea 03/22/16 11/09/20 History blood-glucose meter #1 each 01/22/19 11/09/20 Rx acetaminophen [Tylenol] 650 mg PO Q6H PRN PRN #0 tab 08/26/19 11/09/20 Rx albuterol sulfate 90 mcg/actuation 2 puff INHALATION Q4H PRN PRN #1 09/22/19 11/09/20 Rx aerosol inhaler inh metformin 1,000 mg tablet 1,000 mg PO BID #180 tab-cap 11/02/19 11/09/20 Rx psyllium husk (aspartame) 1 packet PO QDAY 11/03/19 11/09/20 History melatonin 3 mg tablet 3 mg PO HS #90 tab 01/08/20 11/09/20 Rx prazosin 2 mg capsule 2 mg PO HS #90 cap 01/08/20 11/09/20 Rx pen needle, diabetic 33 gauge x #100 each 01/11/20 11/09/20 Rx 3/16 sertraline 100 mg tablet 100 mg PO DAILY #90 tab 01/22/20 11/09/20 Rx Lantus Solostar U-100 Insulin 16 unit SUBCUT DAILY 02/03/20 11/09/20 History gabapentin 100 mg PO DAILY 02/29/20 11/09/20 History hydroxyzine HCl 25 mg PO DAILY 02/29/20 11/09/20 History pantoprazole 40 mg PO DAILY 02/29/20 11/09/20 History magnesium oxide 400 mg (241.3 mg 400 mg PO BID #180 tab 03/22/20 11/09/20 Rx magnesium) tablet mirtazapine 15 mg tablet 15 mg PO HS #90 tab 07/06/20 11/09/20 Rx simvastatin 40 mg tablet 40 mg PO DAILY #90 tab 07/19/20 11/09/20 Rx amoxicillin 500 mg-potassium 1 tab PO TID #30 tab 08/04/20 11/09/20 Rx clavulanate 125 mg tablet furosemide 20 mg tablet 20 mg PO DAILY #90 tab 10/07/20 11/09/20 Rx blood sugar diagnostic #100 each 10/14/20 11/09/20 Rx donepezil 10 mg tablet 10 mg PO DAILY #90 tab 10/18/20 11/09/20 Rx sertraline 50 mg tablet 50 mg PO DAILY #90 tab 10/18/20 11/09/20 Rx doxycycline hyclate 100 mg tablet 100 mg PO BID #20 tab 11/01/20 11/09/20 Rx Allergies Allergy/AdvReac Type Severity Reaction Status Date / Time iodine Allergy Unknown Unverified 11/09/20 11:14 Exam Narrative Exam Narrative: GEN: awake, alert, oriented 3. Pleasant, well groomed, interactive. HEAD: Normocephalic, left frontal ecchymosis, minimal swelling ENT: Mucous membranes dry, oropharynx unremarkable EYES: PERRL, EOMI, reports seeing shadows only on left eye NECK: Full ROM CHEST/RESP: Nontender, clear to auscultation bilateral, no wheeze/rhonchi/rales CARDIOVASCULAR: Regular, loud holosystolic murmur best at left upper sternal border. 2+ Rad pulse bilateral ABDOMEN: Soft, nontender, no mass. +Bowel sounds EXT: Full ROM, bilateral edematous changes with right greater than left dependent shallow skin ulcerations that are initially dressed. Neuro: Grossly normal neurologic exam, conversant, interactive. Psych: Speech fluent, thoughts congruent, affect normal Results Labs Result diagrams: 11/10/20 06:12 11/10/20 06:12 Labs: Laboratory Results - last 24 hr 11/09/20 11/09/20 11/09/20 11:25 11:25 11:25 WBC 15.62 H RBC 3.45 L Hgb 9.3 L Hct 29.2 L MCV 84.6 MCH 27.0 MCHC 31.8 L RDW 18.2 H Plt Count 330 MPV 8.8 Immature Gran % 0.5 Neutrophils % 82.7 Lymphocytes % 12.8 Monocytes % 3.3 Eosinophils % 0.4 Basophils % 0.3 Nucleated RBC % 0 Absolute Neutrophils 12.92 H Absolute Lymphocytes 2.00 Absolute Monocytes 0.52 Absolute Eosinophils 0.06 Absolute Basophils 0.05 PT 11.0 INR 1.1 APTT 22.1 Sodium 143 Potassium 2.5 L* Chloride 104 Carbon Dioxide 23.8 Anion Gap 15.2 H BUN 44 H Creatinine 3.01 H Estimated GFR/1.73 m2 14.85 Glucose 88 Calcium 8.3 L Magnesium 1.5 L Total Bilirubin 0.4 AST 16 ALT 12 L Alkaline Phosphatase 119 H Troponin I < 0.05 Total Protein 7.5 Albumin 3.2 L Urine Color Urine Clarity Urine pH Ur Specific [place] Urine Protein Urine Ketones Urine Blood Urine Nitrite Urine Bilirubin Urine Urobilinogen Ur Leukocyte Esterase Urine RBC Urine WBC Ur Epithelial Cells Urine Crystals Urine Bacteria Urine Casts Urine Mucus Urine Other Ur Culture Indicated? Urine Glucose Stl C.difficile Tox PCR 11/09/20 11/09/20 12:05 13:05 WBC RBC Hgb Hct MCV MCH MCHC RDW Plt Count MPV Immature Gran % Neutrophils % Lymphocytes % Monocytes % Eosinophils % Basophils % Nucleated RBC % Absolute Neutrophils Absolute Lymphocytes Absolute Monocytes Absolute Eosinophils Absolute Basophils PT INR APTT Sodium Potassium Chloride Carbon Dioxide Anion Gap BUN Creatinine Estimated GFR/1.73 m2 Glucose Calcium Magnesium Total Bilirubin AST ALT Alkaline Phosphatase Troponin I Total Protein Albumin Urine Color Yellow Urine Clarity Sl cloudy Urine pH 5.5 Ur Specific [place] 1.025 Urine Protein Trace H Urine Ketones Negative Urine Blood Trace-lysed H Urine Nitrite Negative Urine Bilirubin Negative Urine Urobilinogen 0.2 Ur Leukocyte Esterase Negative Urine RBC 0-2 Urine WBC 0-2 Ur Epithelial Cells Negative Urine Crystals Moderate amorphous Urine Bacteria Negative Urine Casts Negative Urine Mucus Negative Urine Other Rare renal Ur Culture Indicated? No Urine Glucose Negative Stl C.difficile Tox PCR Negative Last Vital Signs Temp 36.6 C 11/09/20 14:23 Pulse 82 11/09/20 14:23 Resp 15 11/09/20 14:23 BP 132/66 11/09/20 11:16 Pulse Ox 98 11/09/20 14:23 COVID-19 Screening Have you, or household traveled for leisure in last 14 days?: No Had IN PERSON contact w/suspected or confirmed C-19 person: No
[2020-11-09 16:51] LABS: Troponin I < 0.05 ng/mL (<0.06)
[2020-11-09] MEDS: Potassium Chloride 20 MEQ TABCR PO ×2 (17:36→21:36)
[2020-11-09] MEDS: Normal Saline 1,000 ML 100 ML IV (17:37)
[2020-11-09 17:53] LABS: Hemoglobin A1C 5.4 % (<5.7)
--- NOTE | 2020-11-09 18:39 | WOUNDCONS_ITS ---
- If Service Date Differs Date of service: 11/09/20 Time of Service: 17:00 Wound Initial Evaluation Narrative: Patient is an 85 yof patient seen here for weakness and dizziness, with a hx of electrolyte imbalance ,acute renal failure, diabetes, Her H&P allergies, labs and other pertinent information were reviewed. Patient stated the right leg just opened up 3 weeks ago, she stated home health has been managing the wound - Wound Right Lower Posterior Tib/Fib(lower leg) Wound Type: Statis Ulcer Wound General Appearance: Reddened, Draining Wound Bed Greatest Portion: Red (Granulation) Wound Bed Lesser Portion: Pale Griswold Wound Surrounding Tissue Appearance: Taut, Edematous Percent of Wound Bed Granulated/Red: 100 Wound Length: 15.7 cm Wound Width: 19.9 cm Wound Depth: 0.1 cm Wound Drainage Description: Sero Sanguineous Wound Topical Solution/Irrigant: Saline Irrigant Wound Debridement Method: Mechanical Wound Debridement Result: Healthy Tissue Revealed Wound Debridement Amount of Tissue Removed: Moderate (dry skin) Left Lower Posterior Tib/Fib(lower leg) Wound Type: Statis Ulcer Wound General Appearance: Reddened Wound Bed Greatest Portion: Pale Griswold Wound Bed Lesser Portion: Shiny Wound Surrounding Tissue Appearance: Shiny, Taut, Edematous Percent of Wound Bed Granulated/Red: 0 (pink non granulating tissue) Percent of Wound Bed Slough/Yellow: 0 Percent of Wound Bed Eschar/Black: 0 Wound Length: 16 cm Wound Width: 9 cm Wound Depth: 0.1 cm (less than) Wound Drainage Amount: None Wound Drainage Odor: None/Absent Wound Drainage Description: No drainage Wound Topical Solution/Irrigant: Saline Irrigant Wound Debridement Method: Mechanical Wound Debridement Result: Healthy Tissue Revealed Wound Debridement Amount of Tissue Removed: Moderate (dry skin) - SABINE Comment:: patient could not tolerate - Pain Pain Level: 7 Pain Scale Used: Visual Analog Scale 0-10 Pain Description: Burning wound has been ongoing for 3 weeks per patient, pain has increased and has become less tolerable, patient is open to treatment with compression - Treatment/Dressing Change Topicals/Ointments: None Cleanse With: Saline, Debrisoft Dressing Types: ABD Pad, Aquacell Ag, Iodosorb Gel, Kerlix (Gauze Roll), Other ( poly mem and marcus wrap) - Recomendation Recomendation:: right lower extremity Cleanse with normal saline , and debrisoft sponge, pat dry. Apply poly mem dressing to the wound bed;. cover with kilng wrap. Secure with marcus wrap to just below the knee change every 3 days or prn. Left lower extremity. Cleanse with olimpia saline and debrisoft sponge, pat dry. Apply abd pad to wound bed. cover with nisa wrap. secure with marcus wrap to just below the knee. Change every3 days or prn Patient has been encouraged to keep legs elevated while in bed. Physcian/Nurse Practioner Notified: Yes (Reva Booth) Treatment Time - Patient Will be Seen Weekly Treatment: 2x/wk - For: For:: 1 week
[2020-11-09] MEDS: Acetaminophen 325 MG TAB 650 MG PO (18:52)
[2020-11-09] MEDS: Meclizine 12.5 MG TAB PO (21:36)
[2020-11-09] MEDS: Prazosin 1 MG CAP 2 MG PO (21:36)
[2020-11-09] MEDS: Melatonin 3 MG TAB PO (21:36)
[2020-11-09] MEDS: Magnesium Oxide 400 MG TAB PO (21:36)
[2020-11-09] MEDS: Heparin 5,000 UNITS/ML VIAL 5000 UNITS SC (21:37)
[2020-11-09] MEDS: Mirtazapine 15 MG TAB PO (21:44)
[2020-11-10] VITALS (7 sets, daily range): BP systolic 95–123; BP diastolic 53–64; PULSE 65–87; RESP 16–18; TEMP 36.5–37.1; O2SAT 96–100
[2020-11-10] MEDS: Acetaminophen 325 MG TAB 650 MG PO ×3 (00:40→19:31)
[2020-11-10] MEDS: Normal Saline 1,000 ML 100 ML IV ×2 (03:14→13:25)
[2020-11-10] MEDS: Heparin 5,000 UNITS/ML VIAL 5000 UNITS SC ×3 (06:24→21:43)
[2020-11-10 07:14] LABS: Abs Immature Grans 0.04 10^3/uL (0.0-0.06); Absolute Basophil Count 0.05 10^3/uL (0.0-0.2); Absolute Eosinophil Count 0.28 10^3/uL (0.0-0.7); Absolute Lymphocyte Count 2.26 10^3/uL (1.2-3.4); Absolute Monocyte Count 0.73 10^3/uL (0.1-0.8); Absolute Neutrophil Count 6.35 10^3/uL (1.2-6.7); Basophils % 0.5; Eosinophils % 2.9; HCT 23.8 % (36.0-46.0); HGB 7.5 g/dL (11.2-15.7); Immature Grans % 0.4; Lymphocytes % 23.3; MCH 26.8 pg (27.0-33.0); MCHC 31.5 % (32.0-36.0); Monocytes % 7.5; Neutrophils % 65.4; Nucleated RBC 0 %; RDW 18.1 % (11.7-14.6); RDW-SD 55.6 fL; WBC 9.71 10^3/uL (4.4-10.8)
[2020-11-10 07:21] LABS: Anion Gap 10.3 mmol/L (3-11); BUN 41 mg/dL (7-18); CO2 22.7 mmol/L (21.0-32.0); CREATININE 2.56 mg/dL (0.55-1.02); Calcium 7.9 mg/dL (8.5-10.1); Chloride 107 mmol/L (98-107); Glucose 110 mg/dL (74-106); Potassium 3.1 mmol/L (3.5-5.1); Sodium 140 mmol/L (136-145)
[2020-11-10 07:57] LABS: Anisocytosis 2+; Diff Comment RBC Morph Reviewed; Platelet Count 220 10^3/uL (130-400)
[2020-11-10 07:58] LABS: Microcytosis 1+; Polychromasia Present
[2020-11-10 08:00] LABS: Poikilocytes 2+
--- NOTE | 2020-11-10 08:24 | OT.INIE ---
Occupational Therapy Notes Inpatient Occupational Therapy Evaluation Date: 11/10/20 Referring Doctor:Reva Booth NP OT Orders: Non urgent-Limited Ability Precautions: Standard, Fall, Full PATIENT PROFILE/ADMITTING DIAGNOSIS: Patient is a 85-year-old female admitted to [facility] through the ER for acute kidney injury, dizziness, non insulin dependent type II. Patient reports 2 days of dizziness, unsteady gait with fall involving a head injury, but per EMR no LOC. PMHx: Medical History (Updated 11/09/20 @ 14:33 by Polo Davis MD) Acute hypokalemia Anxiety Bilateral lower extremity edema worse than last visit Blistering of skin due to chronic pedal edema Dr oMulton managing diuretics; home health in to wrap legs Counseling regarding advance directives and goals of care would still be hospitalized but limited interventions and procedures, no ICU, no transfer doesn't mind SNF; liked her last stay at [facility] H and R Depression Diabetes mellitus Times 3 years. DNI (do not intubate) DNR (do not resuscitate) History of CVA (cerebrovascular accident) (12/02/91) a. 1991. History of DVT (deep vein thrombosis) a. History of right DVT and PE. b. IVC filter placed 40 years ago. Iatrogenic pulmonary embolism and infarction IVC clip-1974 Inappropriate behavior Lower extremity edema Mild cognitive impairment with memory loss Osteoarthrosis both hips, right greater than left Osteopenia Palliative care patient Panic attack POLST (Physician Orders for Life-Sustaining Treatment) DPOA lives in [place]; form done 03/23/20; very clearly DNR/DNI Rupture of tendon of biceps, long head (10/31/07) UTI (urinary tract infection) Surgical History History of bilateral salpingo-oophorectomy History of Surgical Procedure a. Cholecystectomy. b. Lysis of adhesions. c. Hysterectomy. d. Oophorectomy. Status post abdominal hysterectomy Status post breast biopsy Status post cholecystectomy Social History/Home Situation: Pt resides at the [facility] and reports that she is totally (I) at her baseline level of function. She uses a FWW for functional mobility. Pt states that she is claustrophobic and does not like small or closed spaces. She reports that she has an elevator in her home and she enjoys the social aspect of living with other people in the [facility]. Equipment owned/DME: Handicap accessible apartment, FWW SUBJECTIVE: Pt was sitting in chair when OT arrived. She was agreeable to OT session. OBJECTIVE: General Observation: Pleasant and able to answer questions appropriately, IV (L) UE Mental Status: A&Ox3 Pain: no c/o pain ROM: RUE WFL L UE WFL STRENGTH: requires mod vc for testing position RUE 4-/5 throughout globally LUE 4-/5 throughout globally FUNCTIONAL MOBILITY/ADLS: BATHING pt denies and notes that she is not interested in performing this at this time. DRESSING sitting in chair Dressing UE Pt denies Dressing LE (I) don and doffing (B) socks GROOMING Sitting in chair (I) with brushing hair TOILETING NT EATING (I) with holding cup and bring cup to mouth, (I) swallowing liquids BALANCE: Static sitting Normal Dynamic Sitting Normal SPECIAL TESTS: Daily Activity Limitations Standardized Measure [facility] AM -PAC ?6 clicks? Daily Activity Inpatient Short Form: Raw score: 18 Standardized score: 38.66 CMS score: 46.65% INFORMED CONSENT/EDUCATION: Pt instructed in purpose of OT Consult and plan of care. ASSESSMENT: Patient is a 85-year-old female referred to occupational therapy services with diagnosis of . Patient presents with clinical signs and symptoms consistent with dx. Pt presents with the following functional impairments and limitations at this time including decreased functional activity tolerance, decreased functional mobility required for ADL routines, impairments in standing ADLs. AMPAC score 18 Patient is assessed as a Low 37375 complexity based on the following: History: See Above Examination: See functional limitations as listed above Presentation: Evolvig Decision Making: AMPAC score 18 GOALS Goals x1 week 1. Transfers (I) 2. Dressing sitting in chair (I) UE and LE with mod (I) 3. Bathing standing at sink (I) with UE 4. Toileting on toilet (I) 5. Eating (I) PLAN OF CARE/TREATMENT PLAN: 1x/day, 5 days/ week x 1week Initiate Occupational Therapy Services for bathing, dressing, grooming, toileting, eating, transfer training. DISCHARGE RECOMMENDATIONS OT recommends that pt return home with HH services when medically cleared per MD. TREATMENT TIME/MINUTES/CODES 25020, 20 minutes (07:45) REGGIE Villalpando/Devika [facility]
[2020-11-10] MEDS: Normal Saline Flush 10 ML SYR IVP (08:47)
[2020-11-10] MEDS: Aspirin 325 MG TAB PO (08:48)
[2020-11-10] MEDS: Insulin Glargine 300 UNITS/3 ML PEN 16 UNITS SC (08:48)
[2020-11-10] MEDS: hydrOXYzine HCL 25 MG TAB PO (08:49)
[2020-11-10] MEDS: Sertraline 50 MG TAB 100 MG PO (08:49)
[2020-11-10] MEDS: Donepezil 5 MG TAB 10 MG PO (08:49)
[2020-11-10] MEDS: Pantoprazole 40 MG TABCR PO (08:49)
[2020-11-10] MEDS: Potassium Chloride 20 MEQ TABCR PO ×3 (08:49→19:31)
[2020-11-10] MEDS: Sertraline 50 MG TAB PO (08:49)
[2020-11-10] MEDS: Psyllium PKT 1 EACH PO (08:50)
[2020-11-10] MEDS: Gabapentin 100 MG CAP PO (08:50)
[2020-11-10] MEDS: Meclizine 12.5 MG TAB PO ×3 (08:50→19:31)
--- NOTE | 2020-11-10 08:53 | PT.INIE ---
Date of service: 11/10/20 Time of Service: 08:53 PT Notes Visit Reasons: ACUTE RENAL FAILURE, HYPOKALEMIA Physical Therapy Inpatient Initial Evaluation Date: 11/11/2020 Referring Doctor: Reva Booth NP PT Orders: PT CONSULT: Eval/treat Precautions: Fall. Standard. Activity as tolerated. Patient Profile/Admitting Diagnosis: Alyssa is an 85-year-old female patient who presented to the ED on 11/11/2020 with chief complaints of dizziness, unsteadiness, and dehydration for the past two days prior to admission which resulted to a fall and head striking against floor. Patient is diagnosed with acute kidney injury, hypokalemia, and dizziness. PMHX: Medical History (Updated 11/09/20 @ 14:33 by Polo Davis MD) Acute hypokalemia Anxiety Bilateral lower extremity edema worse than last visit Blistering of skin due to chronic pedal edema Dr Moulton managing diuretics; home health in to wrap legs Counseling regarding advance directives and goals of care would still be hospitalized but limited interventions and procedures, no ICU, no transfer doesn't mind SNF; liked her last stay at [facility] Diabetes mellitus Times 3 years. DNI (do not intubate) DNR (do not resuscitate) History of CVA (cerebrovascular accident) (12/02/91) a. 1991. History of DVT (deep vein thrombosis) a. History of right DVT and PE. b. IVC filter placed 40 years ago. Iatrogenic pulmonary embolism and infarction IVC clip-1974 Inappropriate behavior Lower extremity edema Mild cognitive impairment with memory loss Osteoarthrosis both hips, right greater than left Osteopenia Palliative care patient Panic attack POLST (Physician Orders for Life-Sustaining Treatment) DPOA lives in [place]; form done 03/23/20; very clearly DNR/DNI Rupture of tendon of biceps, long head (10/31/07) UTI (urinary tract infection) Surgical History History of bilateral salpingo-oophorectomy History of Surgical Procedure a. Cholecystectomy. b. Lysis of adhesions. c. Hysterectomy. d. Oophorectomy. Status post abdominal hysterectomy Status post breast biopsy Status post cholecystectomy Social History/Home Situation: Patient lives alone in an apartment at the [facility]. She is independent with all activities of daily living using the 4 wheeled walker. She stopped going down to the basement apartment building for all her meals since the pandemic started. Equipment Owned/DME: 4 wheeled walker Subjective: Reports pain and discomfort on B LE. Requested to be careful with handling B legs as they are very tender. Had report of dizziness after second trip from door to window and requested that she sit down. Elaborated that she does not want to do a lot today as she does not want to fall again. Objective: General Observation: Patient seen sitting on recliner chair. IV in the left and the right UE. Swelling noted to bilateral legs. Mental Status: Alert and oriented x 4 Pain: Reported pain and discomfort on bilateral legs and R knee with movement and weight bearing. ROM: Right Upper Extremity: Shoulder Flexion WFL. Shoulder abduction WFL. Elbow flexion WFL. Wrist flexion WFL. Opening and closing of hand WFL. Left Upper Extremity: Shoulder Flexion WFL. Shoulder abduction WFL. Elbow flexion WFL. Wrist flexion WFL. Opening and closing of hand WFL. Right Lower Extremity: Hip flexion allows up to 90 degrees only. Hip abduction allows about 10 degrees. Knee flexion allows up to 90 degrees. Ankle dorsiflexion WFL. Ankle plantarflexion WFL. Left Lower Extremity: Hip flexion WFL. Hip abduction WFL. Knee flexion WFL. Ankle dorsiflexion WFL. Ankle plantarflexion WFL. Strength: Right Upper Extremity: Shoulder flexors 4/5. Shoulder abductors 4/5. Elbow flexors 5/5. Elbow extensors 5/5. Assistant Unit Forester strong. Left Upper Extremity: Shoulder flexors 4/5. Shoulder abductors 4/5. Elbow flexors 5/5. Elbow extensors 5/5. Assistant Unit Forester strong. Right Lower Extremity: Hip flexors 3-/5. Hip abductors 3-/5. Knee flexors 3-/5. Knee extensors 3-/5. Ankle dorsiflexors 4-/5. Ankle plantarflexors 4-/5. Left Lower Extremity: Hip flexors 4-/5. Hip abductors 4-/5. Knee flexors 4-/5. Knee extensors 4-/5. Ankle dorsiflexors 4-/5. Ankle plantarflexors 4-/5. Sensation: Intact as to pain and pressure on bilateral lower extremities. Bed Mobility/Transfers: Supine to sit contact-guard assist Sit to supine contact-guard assist Sit to stand contact-guard assist Stand to sit contact-guard assist Bed to chair contact-guard assist Chair to bed contact-guard assist Right Upper Extremity: Shoulder Flexion WFL. Shoulder abduction WFL. Elbow flexion WFL. Wrist flexion WFL. Functional opening and closing of hand WFL. Left Upper Extremity: Shoulder Flexion WFL. Shoulder abduction WFL. Elbow flexion WFL. Wrist flexion WFL. Functional opening and closing of hand WFL. Right Lower Extremity: Hip flexion WFL. Hip abduction WFL. Knee flexion WFL. Ankle dorsiflexion WFL. Ankle plantarflexion WFL. Left Lower Extremity: Hip flexion WFL. Hip abduction WFL. Knee flexion WFL. Ankle dorsiflexion WFL. Ankle plantarflexion WFL. Gait: Only agreeable to in room short distance ambulation using front wheeled walker with full weightbearing requiring contact-guard assist for 40 feet with complaints of pain in the right feet and right knee at 7/10 with weight bearing. Complained of dizziness with positional change. Decreased rita. Balance: Static Sitting: Good Dynamic Sitting: Good Static Standing: Fair Dynamic Standing: Fair Special Tests: Mobility Limitations Standardized Measure [facility] AM-PAC 6 clicks Basic Mobility Inpatient Short Form: Raw Score: 18 CMS Score: 47% deficit Informed Consent/Education: Patient instructed in purpose of PT consult and plan of care. Assessment: Eloy demonstrates significant limitation with mobility ADL performance, difficulty with walking, balance impairment, positional vertigo, and generalized weakness with referral to physical therapy to address functional mobility impairment requiring the need for physical therapy services. Patient presents with clinical signs and symptoms consistent with current/admitting diagnoses that have resulted to mobility limitations, gait instability, generalized weakness, and impairment of motor control as demonstrated by the following impairment level findings: 1. Decreased strength to B LE major muscle groups 2. Impaired sitting/standing balance due to positional dizziness 3. Impaired activity tolerance 4. Pain in B legs and R knee due to swelling Impairments are contributing to the following functional limitations: 1. Dependent bed mobility skills 2. Increased dependence with transfers 3. Inability to safely ambulate without assistive device and physical assistance 4. Increase completion time for mobility ADL performance 5. Increased fall risk 6. Inability to negotiate steps alone safely Patient is assessed as a 83409 moderate complexity based on the following: History: 85-year-old female with impairment level findings, functional limitations, past medical history and Cecil AM PAC score of 21% deficit Examination: Demonstrable impairment in strength, balance, and range of motion with underlying impairments and functional limitations as documented above Presentation: Evolving Decision Makin moderate complexity Goals: Goals X1 week 1. Supine-Sit independent 2. Sit-Supine independent 3. Sit-Stand independent 4. Stand-Sit independent 5. Bed-Chair independent 6. Chair-Bed independent 7. Independent gait on level surface with use of 4 wheeled walker for at least 300 feet without report of vertigo 9. Independent with home exercise program 10. Good static and dynamic standing balance/tolerance Plan of Care/Treatment Plan: 1-2x/day, 7 days/week x 1 week. Plan of care has been reviewed with the BUSINESS INSIGHT AND ANALYTICS MANAGER providing the service under Physical Therapy direction. Initiate Physical Therapy intervention for strengthening, bed mobility, transfers, gait, stairs, balance training, use of assistive device. DISCHARGE RECOMMENDATIONS: Patient will benefit from usp facility placement for continued skilled physical therapy services in order to progress mobility level, strength, and balance in preparation for a safe discharge to home. TREATMENT CODE/TIME: 20075 x 32 minutes beginning at 8:53 AM. Thank you very much for this referral. Felicity Diaz PT, DPT, CLT [facility] [place], [place]
[2020-11-10] MEDS: Magnesium Oxide 400 MG TAB PO ×2 (10:26→19:31)
[2020-11-10 10:27] LABS: Magnesium 1.9 mg/dL (1.8-2.4)
--- NOTE | 2020-11-10 14:52 | W.PM.PROGNOT ---
Date of Service Date of service: 11/10/20 Time of Service: 14:52 Assessment and Plan Assessment and plan (1) Acute kidney injury: Status: Acute Assessment and plan: improved with IV fluids, avoid nephrotoxic drugs, renal dosing. renal ultrasound 02/04/20 IMPRESSION: 1. Dilatation of the left renal collecting system which has a similar appearance compared to the CT scan from 09/18/2019. This may represent an extrarenal pelvis. Follow-up as clinically appropriate. 2. Incomplete evaluation of the urinary bladder as the patient emptied her bladder prior to the examination. (2) Hypokalemia: Status: Acute Assessment and plan: continue to replete and follow repleted magnesium (3) Dizziness: Status: Acute Assessment and plan: with a previous history and hospitalization for dizziness with no clear etiology. imaging at that time r/o acute CVA, her dizziness did not affect gait stability or cause unsteadiness. she was not orthostatic. meclizine as needed. (4) Non-insulin dependent type 2 diabetes mellitus: Status: Chronic Assessment and plan: diabetic diet blood sugar check ac with coverage (106-116) continue to hold metformin hemoglobin A1C in February 06.9, now 5.4 (5) Insomnia: Status: Acute Assessment and plan: will add melatonin (6) DVT prophylaxis: Status: Acute Assessment and plan: heparin in setting of devendra (7) Discharge planning issues: Status: Acute Assessment and plan: case management following anticipate swing level rehab prior to discharge home discussed with Dr Gallegos Subjective Subjective Patient reports: feels better, tolerating liquids well, tolerating a regular diet, voiding w/o difficulty and afebrile Interval history since last seen: still having some dizziness, working with PT and doing well. states she didn't sleep last night Exam Narrative Exam Narrative: GEN: awake, alert, oriented 3. Pleasant, well groomed, interactive. HEAD: Normocephalic, left frontal ecchymosis, minimal swelling ENT: Mucous membranes dry, oropharynx unremarkable EYES: PERRL, EOMI, reports seeing shadows only on left eye NECK: Full ROM CHEST/RESP: Nontender, clear to auscultation bilateral, no wheeze/rhonchi/rales CARDIOVASCULAR: Regular, loud holosystolic murmur best at left upper sternal border. 2+ Rad pulse bilateral ABDOMEN: Soft, nontender, no mass. +Bowel sounds EXT: Full ROM, bilateral edematous changes with right greater than left dependent shallow skin ulcerations that are initially dressed. Neuro: Grossly normal neurologic exam, conversant, interactive. Psych: Speech fluent, thoughts congruent, affect normal Objective Last Vital Signs Temp 36.8 C 11/10/20 11:28 Pulse 67 11/10/20 11:28 Resp 16 11/10/20 11:28 BP 115/59 L 11/10/20 11:28 Pulse Ox 99 11/10/20 11:28 Laboratory Results - last 24 hr 11/09/20 11/09/20 11/09/20 11:25 13:05 15:50 WBC RBC Hgb Hct MCV MCH MCHC RDW Plt Count MPV Immature Gran % Neutrophils % Lymphocytes % Monocytes % Eosinophils % Basophils % Nucleated RBC % Absolute Neutrophils Absolute Lymphocytes Absolute Monocytes Absolute Eosinophils Absolute Basophils RBC Morphology Polychromasia Poikilocytosis Anisocytosis Microcytosis Sodium Potassium Chloride Carbon Dioxide Anion Gap BUN Creatinine Estimated GFR/1.73 m2 Glucose Hemoglobin A1c 5.4 Calcium Magnesium Troponin I < 0.05 Urine Crystals Moderate amorphous 11/10/20 11/10/20 11/10/20 06:12 06:12 06:12 WBC 9.71 D RBC 2.80 L Hgb 7.5 L Hct 23.8 L MCV 85.0 MCH 26.8 L MCHC 31.5 L RDW 18.1 H Plt Count 220 D MPV 9.0 Immature Gran % 0.4 Neutrophils % 65.4 Lymphocytes % 23.3 Monocytes % 7.5 Eosinophils % 2.9 Basophils % 0.5 Nucleated RBC % 0 Absolute Neutrophils 6.35 Absolute Lymphocytes 2.26 Absolute Monocytes 0.73 Absolute Eosinophils 0.28 Absolute Basophils 0.05 RBC Morphology See below Polychromasia Present Poikilocytosis 2+ Anisocytosis 2+ Microcytosis 1+ Sodium 140 Potassium 3.1 L Chloride 107 Carbon Dioxide 22.7 Anion Gap 10.3 BUN 41 H Creatinine 2.56 H Estimated GFR/1.73 m2 17.90 Glucose 110 H Hemoglobin A1c Calcium 7.9 L Magnesium 1.9 Troponin I Urine Crystals
--- NOTE | 2020-11-10 16:23 | CHAPLAIN ---
Alyssa and I know each other from pervious admissions. She was sitting up in her recliner when I visit. Alyssa lives in the [facility], but said she has not been in the public areas much due to COVID 19 precautions. She usually is very social there. I will continue to visit.
--- NOTE | 2020-11-10 19:06 | INITIAL_ITS ---
- If Service Date Differs Date of service: 11/10/20 Time of Service: 19:12 Care Management Initial Assess REASON FOR HOSPITALIZATION:: Acute renal failure, Hypokalemia PAST MEDICAL HISTORY/PAST SURGICAL HISTORY:: Medical History (Updated 02/03/20 @ 18:32 by Sierra Pierre MD). Anxiety (Chronic). Depression (Acute). Diabetes mellitus (Inactive). Times 3 years. History of CVA (cerebrovascular accident) (Inactive 12/02/91). a. 1991. History of DVT (deep vein thrombosis) (Inactive). a. History of right DVT and PE. b. IVC filter placed 40 years ago. Iatrogenic pulmonary embolism and infarction (Resolved). IVC clip-1974. Inappropriate behavior (Acute). Lower extremity edema (Chronic). Mild cognitive impairment with memory loss (Chronic). Osteoarthrosis (Inactive). both hips, right greater than left. Osteopenia (Inactive). Palliative care patient (Chronic). Panic attack (Inactive). Rupture of tendon of biceps, long head (Resolved 10/31/07). Surgical History . History of bilateral salpingo-oophorectomy (Inactive). History of Surgical Procedure (Inactive). a. Cholecystectomy. b. Lysis of adhesions. c. Hysterectomy. d. Oophorectomy. Status post abdominal hysterectomy (Inactive). Status post breast biopsy (Inactive). Status post cholecystectomy (Inactive) PREVIOUS FUNCTIONAL STATUS/SOCIAL/FAMILY SUPPORTS:: Alyssa lives at the [facility] alone. Her in 1998. She has previously been very social, attending the meal site and visiting with neighbors at the [facility], but recently (Fall 2018) has become more isolated and is not as social as before. She requires assistance from HH RN for medication management. She has a distant relative, a neice who she does not have a close relationship with, Marge, who lives in [place]. She lives independently, but does not drive and requires some assistance with ADL's. ADVANCE DIRECTIVES:: On file, Marge listed as agent. Has patient been provided with info about the portal/API?: No Did the patient sign up for the portal?: No CODE STATUS:: DNR/DNI CODE STATUS COMMENT:: DNR/DNI (Colst on file.) INSURANCE COVERAGE / FINANCIAL ISSUES:: [facility] CURRENT HOME/COMMUNITY SERVICES/EQUIPMENT:: FWW. PRIMARY CARE PHYSICIAN:: Joshua Reina [facility] POTENTIAL DISCHARGE NEEDS:: Increased HH services, possible SNF referrals PATIENT/FAMILY EDUCATION NEEDS:: Review discharge instructions regarding activity levels and medications, discussion of self care needs including ask me three ANTICIPATED BARRIERS TO DISCHARGE:: Alyssa may need additional rehab prior to returning home. TRANSPORTATION:: [facility], dependent on dispositon. PLAN:: Alyssa will return home vs SNF placement, determined by further evaluation, once medically cleared. She will transport via RCT, coordinated by CM. She will follow up with her PCP and Palliative. CM will continue to follow.
[2020-11-10] MEDS: Simvastatin 40 MG TAB PO (19:31)
[2020-11-10] MEDS: Melatonin 3 MG TAB 6 MG PO (21:42)
[2020-11-10] MEDS: Mirtazapine 15 MG TAB PO (21:42)
[2020-11-10] MEDS: Prazosin 1 MG CAP 2 MG PO (21:43)
[2020-11-11] VITALS (10 sets, daily range): BP systolic 98–162; BP diastolic 55–63; PULSE 60–79; RESP 16–19; TEMP 36–36.8; O2SAT 96–99
[2020-11-11] MEDS: Heparin 5,000 UNITS/ML VIAL 5000 UNITS SC ×3 (05:30→22:55)
[2020-11-11 06:49] LABS: Abs Immature Grans 0.01 10^3/uL (0.0-0.06); Absolute Basophil Count 0.05 10^3/uL (0.0-0.2); Absolute Eosinophil Count 0.33 10^3/uL (0.0-0.7); Absolute Lymphocyte Count 2.51 10^3/uL (1.2-3.4); Absolute Monocyte Count 0.61 10^3/uL (0.1-0.8); Absolute Neutrophil Count 4.39 10^3/uL (1.2-6.7); Basophils % 0.6; Eosinophils % 4.2; HCT 24.9 % (36.0-46.0); HGB 7.9 g/dL (11.2-15.7); Immature Grans % 0.1; Lymphocytes % 31.8; MCH 27.4 pg (27.0-33.0); MCHC 31.7 % (32.0-36.0); MCV 86.5 fL (80-95); Monocytes % 7.7; Neutrophils % 55.6; Nucleated RBC 0 %; Platelet Count 229 10^3/uL (130-400); RBC 2.88 10^6/uL (3.93-5.22); RDW 18.4 % (11.7-14.6); RDW-SD 57.7 fL
[2020-11-11 06:59] LABS: Anion Gap 8.5 mmol/L (3-11); BUN 48 mg/dL (7-18); CO2 24.5 mmol/L (21.0-32.0); CREATININE 2.79 mg/dL (0.55-1.02); Calcium 8.2 mg/dL (8.5-10.1); Chloride 109 mmol/L (98-107); Glucose 80 mg/dL (74-106); Potassium 3.9 mmol/L (3.5-5.1); Sodium 142 mmol/L (136-145)
--- NOTE | 2020-11-11 09:05 | OTTR_ITS ---
Date of service: 11/11/20 Time of Service: 08:25 Occupational Therapy Notes Occupational Therapy Inpatient Treatment Note Date: 11/11/20 PRECAUTIONS: Fall, Standard, DNR/DNI SUBJECTIVE: Pt was sitting in chair when OT arrived. She was agreeable to OT session reporting that she is dizzy and her (L) eye is bothersome at this time. PHARMACY TECHNICIAN TRAINEE is aware and was letting RN know while OT was in the room. OBJECTIVE: PAIN: no c/o pain BATHING: sitting in chair with max (A) set up/clean up Upper Body: (I) face, (B) UE and abdomen Lower Body: (I) (B) LE to knees as pts legs are wrapped from the knees down. DRESSING: sitting in chair with min vc throughout Upper Extremity: min (A) don [facility] gown Lower Extremity: NT GROOMING: seated position, (I) brushing hair ASSESSMENT/PLAN: Pt tolerated her ADLs well, we did stay in the chair as pt reported dizziness with functional mobility to the chair. So we opted to perform her ADLs in the chair today, nursing was aware as OT did mention this to PHARMACY TECHNICIAN TRAINEE. OT will continue to work with pt to progress towards goals. TREATMENT CODES/TIME: 44587, 20 minutes (08:25) Tania Figueroa OTR/L [facility]
[2020-11-11] MEDS: Sertraline 50 MG TAB PO (09:10)
[2020-11-11] MEDS: Donepezil 5 MG TAB 10 MG PO (09:10)
[2020-11-11] MEDS: Potassium Chloride 20 MEQ TABCR PO ×3 (09:10→19:54)
[2020-11-11] MEDS: Psyllium PKT 1 EACH PO (09:10)
[2020-11-11] MEDS: SERTRALINE 100 MG TAB PO (09:10)
[2020-11-11] MEDS: Pantoprazole 40 MG TABCR PO (09:11)
[2020-11-11] MEDS: Normal Saline Flush 10 ML SYR IVP (09:11)
[2020-11-11] MEDS: Aspirin 325 MG TAB PO (09:11)
[2020-11-11] MEDS: Meclizine 12.5 MG TAB PO ×3 (09:11→19:54)
[2020-11-11] MEDS: hydrOXYzine HCL 25 MG TAB PO (09:11)
[2020-11-11] MEDS: Gabapentin 100 MG CAP PO (09:11)
[2020-11-11] MEDS: Insulin Glargine 300 UNITS/3 ML PEN 16 UNITS SC (09:14)
[2020-11-11] MEDS: Acetaminophen 325 MG TAB 650 MG PO ×3 (09:14→20:44)
--- NOTE | 2020-11-11 10:53 | W.INDIABCONS ---
Date of service: 11/11/20 Time of Service: 10:54 Diabetes Inpatient Consult DESCRIPTION/ASSESSMENT: 85 year old female admitted with hypokalemia, JAIMEE, with CVA with hx of DM. Followed by pallative care. Most recent A1C: 5.3%, holding meds for now. Previously taking metformin at home. At this time blood sugars well controlled by diet. Following diabetic diet with excellent intake (>75%) intake. BMI indicates class 1 obesity. At this time, diabetes education not warranted. Does not appear at need for education and not at nutritional risk at this time. Will continue to follow. Time Spent in Nutritional Counseling and Treatment: 0
[2020-11-11] MEDS: Magnesium Oxide 400 MG TAB PO ×2 (12:16→19:54)
--- NOTE | 2020-11-11 12:53 | PGE_ITS ---
Date of Service Date of service: 11/11/20 Time of Service: 12:53 Assessment and Plan Assessment and plan (1) Acute kidney injury: Status: Acute Assessment and plan: improved with IV fluids, up slightly today, avoid nephrotoxic drugs, renal dosing. renal ultrasound 02/04/20 IMPRESSION: 1. Dilatation of the left renal collecting system which has a similar appearance compared to the CT scan from 09/18/2019. This may represent an extrarenal pelvis. Follow-up as clinically appropriate. 2. Incomplete evaluation of the urinary bladder as the patient emptied her bladder prior to the examination. (2) Hypokalemia: Status: Resolved Assessment and plan: continue to replete and follow repleted magnesium (3) Dizziness: Status: Acute Assessment and plan: stable with a previous history and hospitalization for dizziness with no clear etiology. imaging at that time r/o acute CVA, her dizziness did not affect gait stability or cause unsteadiness. she was not orthostatic. meclizine as needed. (4) Non-insulin dependent type 2 diabetes mellitus: Status: Chronic Assessment and plan: diabetic diet blood sugar check ac with coverage (106-116) continue to hold metformin hemoglobin A1C in February 06.9, now 5.4 (5) Insomnia: Status: Acute Assessment and plan: added melatonin (6) Bilateral leg pain: Status: Acute Assessment and plan: likely neuropathy. will increase gabapentin and monitor. (7) DVT prophylaxis: Status: Acute Assessment and plan: heparin in setting of devendra (8) Discharge planning issues: Status: Acute Assessment and plan: case management following anticipate [facility] prior to discharge home, anticipate a bed on Saturday. discussed with Dr Gallegos Subjective Subjective Patient reports: no new complaints, tolerating liquids well and tolerating a regular diet Interval history since last seen: reports appetite is much better today, still having dizziness but improved. working with PT and progressing well. she is c/o bilateral leg burning. Exam Narrative Exam Narrative: GEN: awake, alert, oriented 3. Pleasant, well groomed, interactive. HEAD: Normocephalic, left frontal ecchymosis, minimal swelling ENT: Mucous membranes dry, oropharynx unremarkable EYES: PERRL, EOMI, reports seeing shadows only on left eye NECK: Full ROM CHEST/RESP: Nontender, clear to auscultation bilateral, no wheeze/rhonchi/rales CARDIOVASCULAR: Regular, loud holosystolic murmur best at left upper sternal border. 2+ Rad pulse bilateral ABDOMEN: Soft, nontender, no mass. +Bowel sounds EXT: Full ROM, bilateral edematous changes with right greater than left dependen t shallow skin ulcerations that are initially dressed. Neuro: Grossly normal neurologic exam, conversant, interactive. Psych: Speech fluent, thoughts congruent, affect normal Objective Last Vital Signs Temp 36.6 C 11/11/20 11:37 Pulse 63 11/11/20 11:37 Resp 17 11/11/20 11:37 BP 98/59 L 11/11/20 11:37 Pulse Ox 99 11/11/20 11:37 Laboratory Results - last 24 hr 11/11/20 11/11/20 06:13 06:13 WBC 7.90 RBC 2.88 L Hgb 7.9 L Hct 24.9 L MCV 86.5 MCH 27.4 MCHC 31.7 L RDW 18.4 H Plt Count 229 MPV 9.0 Immature Gran % 0.1 Neutrophils % 55.6 Lymphocytes % 31.8 Monocytes % 7.7 Eosinophils % 4.2 Basophils % 0.6 Nucleated RBC % 0 Absolute Neutrophils 4.39 Absolute Lymphocytes 2.51 Absolute Monocytes 0.61 Absolute Eosinophils 0.33 Absolute Basophils 0.05 Sodium 142 Potassium 3.9 D Chloride 109 H Carbon Dioxide 24.5 Anion Gap 8.5 BUN 48 H Creatinine 2.79 H Estimated GFR/1.73 m2 16.20 Glucose 80 Calcium 8.2 L
--- NOTE | 2020-11-11 13:41 | CMPROGNOTE_ITS ---
Care Management Progress Note S/O: Alyssa was pleasant in interaction this morning. She first reported wanting to return home, CM reviewed PT recommendations for SNF stay, and Alyssa was agreeable, and requested support in admitting to [facility]. CM faxed referral, admissions Hanna, reported knowing Alyssa well and offered a bed for Saturday as the facility already has planned admissions over the weekend and Alyssa is not yet medically cleared for discharge. CM continues to follow. A: 85 year old female admitted to [facility] 11/09/20 for Acute renal failure, JAIMEE, hypokalemia. P: Alyssa will discharge to [facility] for short term rehab prior to returning home. She will transport via W/C van, the facility has offered her a bed for 11/14/20. CM will continue to follow.
--- NOTE | 2020-11-11 14:51 | PT.INTREAT ---
Date of service: 11/11/20 Time of Service: 14:51 PT Notes Visit Reasons: ACUTE RENAL FAILURE, HYPOKALEMIA Physical Therapy Inpatient Treatment Note Date: 11/11/2020 Precautions: Fall. Standard. Activity as tolerated. Subjective: Reports having slept a lot better last night than the previous night. R leg still hurts but a tad lesss than yesterday. Complained of more drainage today than yesterday. Objective: General Observation: Patient seen sitting on recliner chair. IV in the left and the right UE. EDILIA wraps to B legs. Serosanguinous drainage seen through posterior R leg. Mental Status: Alert and oriented x 4 Pain: 5/10 pain in R leg Bed Mobility/Transfers: Supine to sit stand by assist Sit to supine stand by assist Sit to stand stand by assist Stand to sit stand by assist Bed to chair stand by assist Chair to bed stand by assist Gait: Only required stand by assist with in-room ambulation of 15 feet + 25 feet + 25 feet from bedside to bathroom and then from there to her room window x 2 with increasing rita. Only reported dizziness after activity. Balance: Static Sitting: Good Dynamic Sitting: Good Static Standing: Fair Dynamic Standing: Fair THERA EX: Guided patient through B UE exercises using a 1 lb DB with DBE x 3 after each exercise: 1. Bilateral shoulder flexion/extension x 10 2. Alternate punch outs x 10 3. Alternate punch ups x 10 Continued with B LE exercises in sitting with DBE x 3 after each exercise: 1. Seated hip flexion x10 2. LAQs x 10 3. Seated hip abduction x 10 4. Ankle DF/PF Assessment: Alyssa continues to to be limited by apprehension over R leg pain/tenderness and over complaint of dizziness in doing mobility ADL performance. She has pre-existing aversion towards walking in the hallway and has been insistent on just doing several trips inside her room instead where she feels a lot safer. She is agreeable to go to a SNF if recommended before going home. DISCHARGE RECOMMENDATIONS: Patient will benefit from senior care facility placement for continued skilled physical therapy services in order to progress mobility level, strength, and balance in preparation for a safe discharge to home. TREATMENT CODE/TIME: Session 1--13952 x 23 minutes beginning at 9:27 AM. Session 2-- 03325 x 15 minutes, 98452 x 12 minutes.
[2020-11-11] MEDS: Dextrose 50%-Water 25 GM/50 ML SYR IVP ×2 (16:51→17:55)
[2020-11-11] MEDS: Simvastatin 40 MG TAB PO (19:54)
[2020-11-11] MEDS: Mirtazapine 15 MG TAB PO (19:55)
[2020-11-11] MEDS: Melatonin 3 MG TAB 6 MG PO (19:55)
[2020-11-11 22:33] LABS: COVID-19 RT-PCR Result NEGATIVE (Negative)
[2020-11-12] VITALS (8 sets, daily range): BP systolic 105–115; BP diastolic 62–68; PULSE 56–74; RESP 17–18; TEMP 36.7–37.2; O2SAT 96–98
[2020-11-12] MEDS: Heparin 5,000 UNITS/ML VIAL 5000 UNITS SC ×3 (05:43→21:46)
[2020-11-12] MEDS: Acetaminophen 325 MG TAB 650 MG PO ×2 (05:43→18:30)
[2020-11-12] MEDS: Potassium Chloride 20 MEQ TABCR PO ×2 (08:06→20:22)
[2020-11-12] MEDS: hydrOXYzine HCL 25 MG TAB PO (08:06)
[2020-11-12] MEDS: Gabapentin 300 MG CAP PO (08:06)
[2020-11-12] MEDS: Aspirin 325 MG TAB PO (08:06)
[2020-11-12] MEDS: Pantoprazole 40 MG TABCR PO (08:07)
[2020-11-12] MEDS: SERTRALINE 100 MG TAB PO (08:07)
[2020-11-12] MEDS: Sertraline 50 MG TAB PO (08:07)
[2020-11-12] MEDS: Meclizine 12.5 MG TAB PO ×3 (08:07→20:22)
[2020-11-12] MEDS: Donepezil 5 MG TAB 10 MG PO (08:07)
[2020-11-12] MEDS: Psyllium PKT 1 EACH PO (08:08)
[2020-11-12] MEDS: Insulin Glargine 300 UNITS/3 ML PEN 16 UNITS SC (08:16)
[2020-11-12] MEDS: Magnesium Oxide 400 MG TAB PO ×2 (10:12→20:22)
--- NOTE | 2020-11-12 12:30 | PT.INTREAT ---
Date of service: 11/12/20 Time of Service: 10:50 PT Notes Visit Reasons: ACUTE RENAL FAILURE, HYPOKALEMIA Inpatient Physical Therapy Treatment Note [facility] Date: 11/12/2020 PRECAUTIONS: Fall SUBJECTIVE: Alyssa is pleasant and agreeable to participating in PT, although she states that she is dizzy at times and gets dizzy with walking OBJECTIVE: PAIN: No complaints of pain BED MOBILITY/TRANSFERS Supine-sit: S Sit-supine: Min A of B LE Sit-stand: SBA Stand-sit: SBA GAIT Assistive Device: FWW Weight bearing: Full Assist: SBA Distance: 25' + 25' Deviation: C/o dizziness with gait training, requiring seated rest x1 THEREX: Patient was instructed in an UE and LE strengthening program, in a supine position, as per flow sheet. Patient reports R LE weakness. ASSESSMENT: Patient tolerated session well, however, with c/o dizziness with gait training, requiring seated rest. PLAN: Continue with gait and transfer training, as well as global strengthening for improved activity tolerance and mobility. TREATMENT CODE/TIME: 20 minutes; [id number]
--- NOTE | 2020-11-12 12:43 | PHA.REVIEW ---
Pharmacy Admission Review - Admission Clinical Review (Last Reviewed 11/09/20 @ 11:44 by Polo Davis MD) Bilateral leg pain (Acute) Discharge planning issues (Acute) DVT prophylaxis (Acute) Insomnia (Acute) Acute kidney injury (Acute) Dizziness (Acute) iodine Allergy (Unknown, Unverified 11/09/20 11:14) Height 5 ft 3 in Weight 81.647 kg - Renal Dosing Renal Dosing: BUN 48 mg/dL (7-18) H 11/11/20 06:13 Creatinine 2.79 mg/dL (0.55-1.02) H 11/11/20 06:13 Medications needing adjustments: Reviewed (eCrCl 15.5 ml/min) - Anticoagulation Anticoagulation: Hgb 7.9 g/dL (11.2-15.7) L 11/11/20 06:13 Hct 24.9 % (36.0-46.0) L 11/11/20 06:13 Plt Count 229 10^3/uL (130-400) 11/11/20 06:13 INR 1.1 (0.9-1.1) 11/09/20 11:25 Creatinine 2.79 mg/dL (0.55-1.02) H 11/11/20 06:13 DVT Prohphylaxis: Reviewed Medications: Heparin ((JAIMEE)) - Opiate Usage Evaluate Pain Scale/Pains Meds: N/A - Relevant Labs Sodium 142 mmol/L (136-145) 11/11/20 06:13 Potassium 3.9 mmol/L (3.5-5.1) D 11/11/20 06:13 Chloride 109 mmol/L (98-107) H 11/11/20 06:13 Magnesium 1.9 mg/dL (1.8-2.4) 11/10/20 06:12 Electrolytes, C-Reactive P, ESR: Reviewed - DM Control DM Control: Glucose 80 mg/dL (74-106) 11/11/20 06:13 Hemoglobin A1c 5.4 % (<5.7) 11/09/20 11:25 Finger Stick Blood Glucose 100 Finger Stick Blood Glucose 104 Finger Stick Blood Glucose 104 Finger Stick Blood Glucose 104 Insulin Dosing: Reviewed (16u glargine daily plus SS aspart) - Heart Failure/ND Heart Failure/ND: Troponin I < 0.05 ng/mL (<0.06) 11/09/20 15:50 EF%, EDILIA's, B-Blockers, Diuretics: Reviewed - BP Control BP Control: Blood Pressure 109/63 Blood Pressure 110/68 If elevated: Reviewed - Qtc Review If Elevated: Reviewed (QTc 441 on admission) - IV to PO Switch IV Medications: Reviewed - Home Meds Home Med List reviewed: Intervened Relevent Home Meds Not ordered & why?: Made adjustments (timing) to reflect home rx's, dc'd acute abx orders, dc'd hydroxyzine as it hasn't been filled since January and is not in pt's bubble packs (per [place] [facility]); Metforming not ordered (SS aspart ordered) - Current meds Current Medication Order Review: Reviewed (Hydroxyzine active - notified )
--- NOTE | 2020-11-12 14:00 | PGE_ITS ---
Date of Service Date of service: 11/12/20 Time of Service: 14:00 Assessment and Plan Assessment and plan (1) Acute kidney injury: Status: Acute Assessment and plan: Creatinine 2.79; slightly elevated from yesterday. NS 75ml/hr. Creatinine in AM (2) Non-insulin dependent type 2 diabetes mellitus: Status: Chronic Assessment and plan: Glucose is well controlled on basa/bolus insulin. Monitor (3) DVT prophylaxis: Status: Acute Assessment and plan: SQ heparin in setting of JAIMEE (4) Bilateral leg pain: Status: Acute Assessment and plan: Likely neuropathy. Gabapentin was increased; monitor. (5) Discharge planning issues: Status: Acute Assessment and plan: Planning further therapies at [facility]; d/c on Saturday. Subjective Subjective Patient reports: no new complaints, tolerating a regular diet and afebrile; denies nausea and vomiting Exam Const General: cooperative and no acute distress Nutritional Appearance: overweight Orientation: alert HENOK Mouth: mucous membranes dry (mildly dry) Neck Neck: full ROM and no JVD Resp Effort & Inspection: normal respiratory effort Auscultation: clear to auscultation bilaterally Cardio Rate: regular rate Rhythm: regular rhythm Heart Sounds: murmur Extrem General: no calf tenderness and edema Objective Last Vital Signs Temp 36.7 C 11/12/20 08:00 Pulse 69 11/12/20 08:00 Resp 17 11/12/20 08:00 BP 109/63 11/12/20 08:00 Pulse Ox 98 11/12/20 08:00 Laboratory Results - last 24 hr 11/09/20 14:15 SARS-CoV-2 (PCR) Not Applicable Nasopharyn COVID-19 PCR Negative Ref Test Perform Site [facility]
--- NOTE | 2020-11-12 14:45 | CMPROGNOTE_ITS ---
- If Service Date Differs Date of service: 11/12/20 Time of Service: 14:46 Care Management Progress Note S/O: Alyssa will be discharged to [facility] on Saturday. A new Covid swab was obtained today. Alyssa continues to have close monitoring of her vital signs and labs A: 85 year old female admitted to [facility] 11/09/20 for Acute renal failure, JAIMEE, hypokalemia. P: Alyssa will discharge to [facility] for short term rehab prior to returning home. She will transport via W/C van, the facility has offered her a bed for 11/14/20. CM will continue to follow.
--- NOTE | 2020-11-12 15:23 | NUR.NOTE ---
Nursing Note: Patient has requested from this nurse that all 4 bedrails be put up. I have notified her primary nurse of this
[2020-11-12] MEDS: Normal Saline 500 ML 75 ML IV (16:36)
[2020-11-12] MEDS: Simvastatin 40 MG TAB PO (20:22)
[2020-11-12] MEDS: Melatonin 3 MG TAB 6 MG PO (21:46)
[2020-11-12] MEDS: Prazosin 1 MG CAP 2 MG PO (21:46)
[2020-11-12] MEDS: Mirtazapine 15 MG TAB PO (21:46)
[2020-11-13] VITALS (9 sets, daily range): BP systolic 104–129; BP diastolic 56–73; PULSE 64–75; RESP 16–18; TEMP 36–37.1; O2SAT 96–98
[2020-11-13] MEDS: Acetaminophen 325 MG TAB 650 MG PO ×2 (00:34→19:19)
[2020-11-13] MEDS: traMADol 50 MG TAB PO (01:41)
[2020-11-13] MEDS: Heparin 5,000 UNITS/ML VIAL 5000 UNITS SC ×3 (06:17→21:44)
[2020-11-13] MEDS: Normal Saline 500 ML 75 ML IV (06:17)
[2020-11-13 07:49] LABS: HCT 25.4 % (36.0-46.0); HGB 7.8 g/dL (11.2-15.7); MCH 27.1 pg (27.0-33.0); MCHC 30.7 % (32.0-36.0); MCV 88.2 fL (80-95); MPV 9.6 fL (8.0-11.0); Platelet Count 233 10^3/uL (130-400); RBC 2.88 10^6/uL (3.93-5.22); RDW-SD 61.3 fL; WBC 8.02 10^3/uL (4.4-10.8)
[2020-11-13 07:54] LABS: Anion Gap 5.9 mmol/L (3-11); BUN 55 mg/dL (7-18); CO2 25.1 mmol/L (21.0-32.0); Calcium 8.4 mg/dL (8.5-10.1); Chloride 108 mmol/L (98-107); Glucose 100 mg/dL (74-106); Potassium 5.3 mmol/L (3.5-5.1); Sodium 139 mmol/L (136-145)
[2020-11-13] MEDS: Psyllium PKT 1 EACH PO (08:11)
[2020-11-13] MEDS: hydrOXYzine HCL 25 MG TAB PO (08:12)
[2020-11-13] MEDS: Pantoprazole 40 MG TABCR PO (08:12)
[2020-11-13] MEDS: Insulin Glargine 300 UNITS/3 ML PEN 16 UNITS SC (08:12)
[2020-11-13] MEDS: Aspirin 325 MG TAB PO (08:12)
[2020-11-13] MEDS: Donepezil 5 MG TAB 10 MG PO (08:13)
[2020-11-13] MEDS: Gabapentin 300 MG CAP PO (08:13)
[2020-11-13] MEDS: Potassium Chloride 20 MEQ TABCR PO ×2 (08:13→19:20)
[2020-11-13] MEDS: SERTRALINE 100 MG TAB PO (08:13)
[2020-11-13] MEDS: Meclizine 12.5 MG TAB PO ×3 (08:13→19:20)
[2020-11-13] MEDS: Sertraline 50 MG TAB PO (08:13)
[2020-11-13] MEDS: Magnesium Oxide 400 MG TAB PO ×2 (12:13→19:20)
--- NOTE | 2020-11-13 13:13 | PT.INTREAT ---
Date of service: 11/13/20 Time of Service: 09:15 PT Notes Visit Reasons: ACUTE RENAL FAILURE, HYPOKALEMIA Inpatient Physical Therapy Treatment Note [facility] Date: 11/13/2020 PRECAUTIONS: Fall SUBJECTIVE: Alyssa is pleasant and agreeable to participating in PT, although she states that she is dizzy at times and gets dizzy with walking. OBJECTIVE: PAIN: No complaints of pain BED MOBILITY/TRANSFERS Supine-sit: S Sit-stand: SBA Stand-sit: SBA Bed?chair: SBA Chair?bed: SBA GAIT Assistive Device: FWW Weight bearing: Full Assist: SBA Distance: 25' x3 Deviation: C/o dizziness with gait training, requiring seated rest x2 THEREX: Patient was instructed in an UE and LE strengthening program, in a seated position, as per flow sheet. TOILETING: Patient toileted with SBA for transfers ASSESSMENT: Patient tolerated session well, however, with c/o dizziness with gait training, requiring seated rests. PLAN: Continue with gait and transfer training, as well as global strengthening for improved activity tolerance and mobility. TREATMENT CODE/TIME: 45 minutes; 97833 x2, 40057
--- NOTE | 2020-11-13 13:56 | W.PM.PROGNOT ---
Date of Service Date of service: 11/13/20 Time of Service: 13:56 Assessment and Plan Assessment and plan (1) Acute kidney injury: Status: Acute Assessment and plan: Creatinine gradually increasing; now 2.9 She is receiving IV NS at 75ml/hour. Will give a 250ml bolus. Monitor. (2) Non-insulin dependent type 2 diabetes mellitus: Status: Chronic Assessment and plan: Cont basal/bolus insulin Monitor (3) Bilateral leg pain: Status: Acute Assessment and plan: On gabapentin 300mg QAM Added 100mg QHS last PM Neuropathic. (4) Discharge planning issues: Status: Acute Assessment and plan: Planning d/c to [facility] tomorrow. Subjective Subjective Patient reports: tolerating a regular diet and afebrile; denies nausea Interval history since last seen: She complained of pain in a foot overnight. No current complaints. Exam Const General: cooperative and no acute distress Nutritional Appearance: overweight Orientation: alert Resp Effort & Inspection: normal respiratory effort Auscultation: clear to auscultation bilaterally Cardio Jugular venous pressure: no JVD Rate: regular rate Rhythm: regular rhythm Heart Sounds: S1 normal and S2 normal GI Palpation: soft and nontender Auscultation: normal bowel sounds Extrem General: no pedal edema and no calf tenderness Objective Last Vital Signs Temp 37 C 11/13/20 12:10 Pulse 70 11/13/20 12:10 Resp 16 11/13/20 12:10 BP 104/62 11/13/20 12:10 Pulse Ox 96 11/13/20 12:10 Laboratory Results - last 24 hr 11/13/20 11/13/20 07:05 07:05 WBC 8.02 RBC 2.88 L Hgb 7.8 L Hct 25.4 L MCV 88.2 MCH 27.1 MCHC 30.7 L RDW 19.0 H Plt Count 233 MPV 9.6 Sodium 139 Potassium 5.3 H D Chloride 108 H Carbon Dioxide 25.1 Anion Gap 5.9 BUN 55 H Creatinine 2.90 H Estimated GFR/1.73 m2 15.50 Glucose 100 Calcium 8.4 L
--- NOTE | 2020-11-13 15:00 | CMPROGNOTE_ITS ---
- If Service Date Differs Date of service: 11/13/20 Time of Service: 15:00 Care Management Progress Note S/O: Alyssa continues to be acute the plan if for her to discharge on Saturday to the rehab however concerns that her BUN, Cr and K+ are all more elevated. Started on some gentle IV hydration with a fluid bolus. CM will continue to monitor acute admission and assess readiness for discharge. Her repeat COVID is pending. A: 85 year old female admitted to [facility] 11/09/20 for Acute renal failure, JAIMEE, hypokalemia. P: Alyssa will discharge to [facility] for short term rehab prior to returning home. She will transport via W/C van, the facility has offered her a bed for 11/14/20. CM will continue to follow.
[2020-11-13] MEDS: Simvastatin 40 MG TAB PO (19:20)
[2020-11-13] MEDS: Mirtazapine 15 MG TAB PO (21:44)
[2020-11-13] MEDS: Gabapentin 100 MG CAP PO (21:44)
[2020-11-13] MEDS: Melatonin 3 MG TAB 6 MG PO (21:44)
[2020-11-13] MEDS: Prazosin 1 MG CAP 2 MG PO (21:44)
[2020-11-13 23:33] LABS: COVID-19 RT-PCR UVMMC Result Negative (Negative)
[2020-11-14 03:12] VITALS: BP 125/65; PULSE 73; RESP 18; TEMP 36.3; O2SAT 98
[2020-11-14] MEDS: Heparin 5,000 UNITS/ML VIAL 5000 UNITS SC (06:25)
[2020-11-14 07:18] VITALS: BP 109/61; PULSE 78; RESP 18; TEMP 36.2; O2SAT 97
[2020-11-14 07:35] LABS: ALT 12 U/L (14-59); AST 14 U/L (15-37); Albumin 2.5 g/dL (3.4-5.0); Alkaline Phosphatase 107 U/L (46-116); Anion Gap 7.9 mmol/L (3-11); BUN 59 mg/dL (7-18); Bilirubin, Total 0.3 mg/dL (0.2-1.0); CO2 23.1 mmol/L (21.0-32.0); CREATININE 2.84 mg/dL (0.55-1.02); Calcium 8.2 mg/dL (8.5-10.1); Chloride 109 mmol/L (98-107); Estimated GFR 15.88 (mL/min/1.73m2); Glucose 138 mg/dL (74-106); Potassium 5.3 mmol/L (3.5-5.1); Sodium 140 mmol/L (136-145); Total Protein 5.9 g/dL (6.4-8.2)
[2020-11-14] MEDS: hydrOXYzine HCL 25 MG TAB PO (07:36)
[2020-11-14] MEDS: Donepezil 5 MG TAB 10 MG PO (07:36)
[2020-11-14] MEDS: Pantoprazole 40 MG TABCR PO (07:36)
[2020-11-14] MEDS: SERTRALINE 100 MG TAB PO (07:37)
[2020-11-14] MEDS: Sertraline 50 MG TAB PO (07:37)
[2020-11-14] MEDS: Gabapentin 300 MG CAP PO (07:37)
[2020-11-14] MEDS: Potassium Chloride 20 MEQ TABCR PO (07:37)
[2020-11-14] MEDS: Psyllium PKT 1 EACH PO (07:37)
[2020-11-14] MEDS: Aspirin 325 MG TAB PO (07:37)
[2020-11-14] MEDS: Meclizine 12.5 MG TAB PO (07:37)
[2020-11-14] MEDS: Insulin Glargine 300 UNITS/3 ML PEN 16 UNITS SC (07:48)
[2020-11-14] MEDS: Insulin Aspart 300 UNITS/3 ML PEN SC ×2 (07:50→11:44)
--- NOTE | 2020-11-14 08:59 | OTTR_ITS ---
Date of service: 11/14/20 Time of Service: 08:30 Occupational Therapy Notes Occupational Therapy Inpatient Treatment Note Date: 11/14/20 PRECAUTIONS: Fall, Standard, DNR/DNI SUBJECTIVE: Pt was sitting in bed when OT arrived, she was agreeable to OT session and reports that her (L) eye is bothersome to her. OBJECTIVE: PAIN: no c/o pain BATHING: sitting in chair with max (A) set up/clean up Upper Body: (I) face, (B) UE and abdomen, max (A) back Lower Body: (I) (B) LE to knees as pts legs are wrapped from the knees down. (I) sarita area DRESSING: sitting in bed with min vc throughout Upper Extremity: min (A) don and doffing hospital gown Lower Extremity: (I) don and doffing (B) socks GROOMING: seated position, (I) brushing hair ASSESSMENT/PLAN: Pt was an active participant and agreeable to OT session. She is demonstrating increased functional (I) and approaching her baseline level of function. TREATMENT CODES/TIME: 08673, 10 minutes (08:30) Tania Figueroa, OTR/L [facility]
[2020-11-14] MEDS: Magnesium Oxide 400 MG TAB PO (09:22)
--- NOTE | 2020-11-14 10:17 | W.PM.DS.N ---
Date of service: 11/14/20 Time of Service: 10:17 DS: Diagnosis Discharge Diagnosis (1) Acute kidney injury: Status: Acute (2) Non-insulin dependent type 2 diabetes mellitus: Status: Chronic (3) Bilateral leg pain: Status: Acute (4) Discharge planning issues: Status: Acute Discharge Plan Disposition Patient Disposition: SNF (LEVEL 1) [facility] Condition: Improving Discharge Details Reason For Visit: ACUTE RENAL FAILURE, HYPOKALEMIA Admit Date/Time: 11/09/20 13:55 Admit Provider: Braxton Gilman Attending Provider: Braxton Gilman Primary Care Provider: [facility] Course Hospital Course: This is an 85 yo female that presented to the ED for 2 day history of dizziness, unsteady gait with fall involving a head injury, no LOC. Work up in the ED showed JAIMEE and hypokalemia. She was also noted to be hypoglycemic, and had slurred speech and a glucose in the 50s. EMS gave her glucose with improvement of the speech changes. Her sense of dizziness and left eye vision changes persisted. Labs reveal chronic anemia with a hematocrit of 29, white blood cell count is 15, platelets 330. Sodium 143, potassium 2.5, chloride 104, bicarb 23, BUN 44, creatinine 3.0. Magnesium is 1.5. Troponin negative. CT scan of the head without acute findings. She was started on IV fluids, potassium and magnesium repleted. Her hemoglobin did decrease from 9.3 to 7.5 > 7.9 > 7.8. No gross blood loss noted. Her creatinine on admission was 3.01 (baseline in the 1.99 - 2.3's). It decreased to 2.56, then was 2.84 at time of discharge. Her lasix was not continued. She worked with PT and OT. She continued to c/o dizziness with gait training and required seated rest at times. A left eye patch was initiated to help alleviate the dizziness. She will d/c to [facility] for further therapies with the ultimate goal of returning to the [facility] where she resides. Home Meds and New Rx's Prescriptions: New hydroxyzine HCl 25 mg Tablet 25 mg PO DAILY Qty: 0 RF: 0 Lantus Solostar U-100 Insulin 100 unit/mL (3 mL) Insulin Pen 16 unit subcut DAILY Qty: 0 RF: 0 aspirin 325 mg Tablet 325 mg PO DAILY Qty: 0 RF: 0 melatonin 3 mg Tablet Extended Release 6 mg PO HS Qty: 0 RF: 0 polyethylene glycol 3350 17 gram Powder In Packet 17 g PO DAILY PRN PRN (Reason: Constipation) Qty: 0 RF: 0 gabapentin 300 mg Capsule 300 mg PO DAILY Qty: 0 RF: 0 Continued albuterol sulfate [Ventolin HFA] 90 mcg/actuation HFA aerosol inhaler 2 puff Inhalation Q4H PRN PRN (Reason: shortness of breath or wheezing) Qty: 1 RF: 3 prazosin 2 mg capsule 2 mg PO HS Qty: 90 RF: 3 Hold Instructions: Home Medication placed on hold at Doctor's office sertraline 100 mg tablet 100 mg PO DAILY Qty: 90 RF: 4 magnesium oxide 400 mg (241.3 mg magnesium) tablet 400 mg PO BID Qty: 180 RF: 4 mirtazapine 15 mg tablet 15 mg PO HS Qty: 90 RF: 3 simvastatin [Zocor] 40 mg tablet 40 mg PO DAILY Qty: 90 RF: 4 sertraline 50 mg tablet 50 mg PO DAILY Qty: 90 RF: 4 donepezil 10 mg tablet 10 mg PO DAILY Qty: 90 RF: 4 psyllium husk (aspartame) 3.5 gram Powder In Packet 1 packet PO QDAY RF: 0 acetaminophen [Tylenol] 325 mg Tablet 650 mg PO Q6H PRN PRNQty: 0 RF: 0 pantoprazole 40 mg Tablet,Delayed Release (Dr/Ec) 40 mg PO DAILY RF: 0 Discontinued metformin 1,000 mg tablet 1,000 mg PO BID Qty: 180 RF: 4 melatonin 3 mg tablet 3 mg PO HS Qty: 90 RF: 3 furosemide 20 mg tablet 20 mg PO DAILY Qty: 90 RF: 0 Lantus Solostar U-100 Insulin 100 unit/mL (3 mL) insulin pen 16 unit subcut HS RF: 0 gabapentin 100 mg Capsule 100 mg PO HS RF: 0 No Action (DME) blood-glucose meter [AvaLAN Wireless Systemsuch Ultra2 Meter] kit See Dose Instructions .ROUTE .MEDSUPPLY Qty: 1 RF: 0 (DME) lancets [Prodigy Lancets] 1 EACH misc 1 ea Miscellaneous BID Qty: 100 RF: 6 (DME) lancets [OneTouch Delica Lancets] 1 EACH misc 1 ea Miscellaneous BID Qty: 100 RF: 4 (DME) Comfort EZ Pen Columbia 33 gauge x 3/16 needle See Rx Instructions .ROUTE .MEDSUPPLY Qty: 100 RF: 4 (DME) OneTouch Ultra Blue Test Strip Strip See Rx Instructions .ROUTE .MEDSUPPLY Qty: 100 RF: 4 Discharge Instructions Instructions: Peripheral Neuropathy (GEN) Activity:: Activity as Tolerated Equipment/Supplies:: No Equipment Needed Diet:: Carb Counting Discharge Orders Discharge Orders: Discharge Order (Routine); Ordered 11/14/20 Ordered By: Ned Mccain DS: Summary Status at Discharge Functional status at discharge: uses cane/walker Overall status at discharge: patient is progressing back to baseline Mental Status: mental status grossly normal Speech and Movement: speech and movement normal Mood: congruent mood Affect: normal affect Exam Const General: cooperative and no acute distress Nutritional Appearance: overweight Orientation: alert, oriented to person and oriented to place Neck Neck: full ROM and no JVD Resp Effort & Inspection: normal respiratory effort Auscultation: clear to auscultation bilaterally Cardio Rate: regular rate Rhythm: regular rhythm Heart Sounds: S1 normal and S2 normal GI Inspection: obesity Palpation: soft and nontender Skin General skin exam: no rashes or lesions noted Extrem General: no pedal edema and no calf tenderness Psych Mental Status: mental status grossly normal Speech and Movement: speech and movement normal Mood: congruent mood Affect: normal affect DS: Data Vitals/I&O Vitals and I&O: Vital Signs Temperature 36.2 C L 11/14/20 07:18 Temperature Source Tympanic 11/14/20 07:18 Pulse 78 11/14/20 07:18 Pulse Rhythm Regular 11/14/20 08:56 Pulse 90 11/09/20 14:00 Respiratory Rate 18 11/14/20 07:18 Respiratory Effort Non-Labored 11/14/20 08:56 Respiratory Depth Normal 11/14/20 08:56 Respiratory Pattern Normal 11/14/20 08:56 Blood Pressure 109/61 11/14/20 07:18 Blood Pressure Mean 78 11/09/20 11:16 Blood Pressure Position Supine 11/09/20 11:08 Pulse Oximetry 97 11/14/20 07:18 Oxygen Delivery Method Room Air 11/14/20 07:18 Oxygen Flow Rate 0 11/14/20 07:18 Pain Level 7 11/14/20 07:18 Comment 11/11/20 07:23 Intake & Output 11/13/20 11/13/20 11/14/20 11:59 23:59 11:59 Intake Total 980 / 980 240 / 240 Output Total 2450 / 4300 1850 / 4300 600 / 600 Balance -2450 / -3320 -870 / -3320 -360 / -360 Intake: IV 500 / 500 Oral 480 / 480 240 / 240 Output: Urine 2450 / 4300 1850 / 4300 600 / 600 Other: Urine Color Yellow Yellow Yellow Urine Appearance Clear Clear Clear Urine Odor Strong Normal Normal Stool Size Small Small Small Stool Characteristics Formed Hard Soft Brown Formed Voiding Methods Toilet Toilet Toilet Diaper Incontinent Data Completed and Pending Labs on day of discharge: Labs from last 24 hours 11/14/20 11/12/20 06:50 11:00 Sodium 140 Potassium 5.3 H Chloride 109 H Carbon Dioxide 23.1 Anion Gap 7.9 BUN 59 H Creatinine 2.84 H Estimated GFR/1.73 m2 15.88 Glucose 138 H Calcium 8.2 L Total Bilirubin 0.3 AST 14 L ALT 12 L Alkaline Phosphatase 107 Total Protein 5.9 L Albumin 2.5 L SARS-CoV-2 (PCR) Negative Nasopharyn COVID-19 PCR Not Applicable Ref Test Perform Site [facility] lab REPLACED BY [facility] Medical History Acute hypokalemia Anxiety Bilateral lower extremity edema worse than last visit Blistering of skin due to chronic pedal edema Dr Moulton managing diuretics; home health in to wrap legs Counseling regarding advance directives and goals of care would still be hospitalized but limited interventions and procedures, no ICU, no transfer doesn't mind SNF; liked her last stay at [facility] H and R Depression Diabetes mellitus Times 3 years. DNI (do not intubate) DNR (do not resuscitate) History of CVA (cerebrovascular accident) (12/02/91) a. 1991. History of DVT (deep vein thrombosis) a. History of right DVT and PE. b. IVC filter placed 40 years ago. Iatrogenic pulmonary embolism and infarction IVC clip-1974 Inappropriate behavior Lower extremity edema Mild cognitive impairment with memory loss Osteoarthrosis both hips, right greater than left Osteopenia Palliative care patient Panic attack POLST (Physician Orders for Life-Sustaining Treatment) DPOA lives in [place]; form done 03/23/20; very clearly DNR/DNI Rupture of tendon of biceps, long head (10/31/07) UTI (urinary tract infection) Surgical History History of bilateral salpingo-oophorectomy History of Surgical Procedure a. Cholecystectomy. b. Lysis of adhesions. c. Hysterectomy. d. Oophorectomy. Status post abdominal hysterectomy Status post breast biopsy Status post cholecystectomy Family History Son , age 52 Sudden cardiac arrest Father , killed by Nazis in front of her when she was 10 yo Murder Social History Smoking/Tobacco Use Status: Former Tobacco Use Tobacco: How many years used: 1 Second Hand Exposure: Yes Smoking risk assessment performed?: Yes Alcohol Intake: never Drug use: Never Substance use type: does not use Caregiver/Support person: No Household members: none Housing: apartment Number of Children: 1 number of grandchildren: 1 Communication Needs: Corrective Lenses Education Level: middle school Do you need help understanding health information?: Always 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 Pets and animals: No What is your relationship status?: How often do you talk on the phone with friends or family?: never How often do you get together with friends or relatives?: twice per week How often do you attend mormonism or muslim services?: 4 or more times per year Panel score (0-1 are the most socially isolated patients): 1 What type of physical activity do you participate in: walking and irregular exercise Duration: < 15 minutes/day Frequency: 1-2 times per week Marielle/Scientology: Hindu Special marielle needs: No Seatbelt use: always Water heater temp set <120 deg: Yes Working smoke detector in home: Yes Fire extinguisher in home: Yes Do you feel safe at home: Yes Do you feel safe in your relationship?: Yes Additional Social history: in 1998. Lives in [facility]. Moved in 2012. Has one granddaughter, only living relative; granddaughter lives in [place]. Since fall, no longer as social. Used to sit on porch of [employer] and greet people. Now staying to herself in her room. Not socializing in communal areas. She escaped [place] alone at the age of 16. 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 They had 1 son and then moved to the [place] as he was given the option as a concentration camp survivor.
[2020-11-14 11:45] VITALS: BP 118/71; PULSE 73; RESP 19; TEMP 36.8; O2SAT 100
--- NOTE | 2020-11-14 13:25 | PDOC.CMDIS ---
LACE Index Scoring Tool - Questions: Length of Stay (in days): 4 - 6 Acuity (Admit via E.D.?): Yes Comorbidities: Diabetes w/o Complication E.D. Visits: 3 - Answers: Total Score: 11 Risk of Readmission: High Risk Care Management Discharge Reason for Hospitalization: Acute renal failure, Hypokalemia Discharge Plan: Alyssa will discharge to [facility] for short term rehab prior to returning home. She will transport via the facility's W/C van, coordinated by this tag writer. Patient/Family Education Needs: Review of local SNF options, transfer considerations, discuss self care needs upon discharge; Ask Me Three. Alyssa reports attending [facility] previously and reports feeling confident she can recover and return home after a short rehab stay at her preferred facility. Services Needed at Discharge: Retirement Facility ([facility]), Transportation (W/C Van)
--- NOTE | 2020-11-15 07:19 | OT.INDS ---
Date of service: 11/15/20 Time of Service: 07:19 Occupational Therapy Notes Occupational Therapy Inpatient Discharge Summary Date: 11/15/20 Dates of Service: 11/10/20-11/14/20 Referring Doctor:Reva Booth NP OT Orders: Non urgent-Limited Ability Precautions: Standard, Fall, Full PATIENT PROFILE/ADMITTING DIAGNOSIS: Patient is a 85-year-old female admitted to [facility] through the ER for acute kidney injury, dizziness, non insulin dependent type II. Patient reports 2 days of dizziness, unsteady gait with fall involving a head injury, but per EMR no LOC. PMHx: Medical History (Updated 11/09/20 @ 14:33 by Polo Davis MD) Acute hypokalemia Anxiety Bilateral lower extremity edema worse than last visit Blistering of skin due to chronic pedal edema Dr Moulton managing diuretics; home health in to wrap legs Counseling regarding advance directives and goals of care would still be hospitalized but limited interventions and procedures, no ICU, no transfer doesn't mind SNF; liked her last stay at [facility] H and Depression Diabetes mellitus Times 3 years. DNI (do not intubate) DNR (do not resuscitate) History of CVA (cerebrovascular accident) (12/02/91) a. 1991. History of DVT (deep vein thrombosis) a. History of right DVT and PE. b. IVC filter placed 40 years ago. Iatrogenic pulmonary embolism and infarction IVC clip-1974 Inappropriate behavior Lower extremity edema Mild cognitive impairment with memory loss Osteoarthrosis both hips, right greater than left Osteopenia Palliative care patient Panic attack POLST (Physician Orders for Life-Sustaining Treatment) DPOA lives in [place]; form done 03/23/20; very clearly DNR/DNI Rupture of tendon of biceps, long head (10/31/07) UTI (urinary tract infection) Surgical History History of bilateral salpingo-oophorectomy History of Surgical Procedure a. Cholecystectomy. b. Lysis of adhesions. c. Hysterectomy. d. Oophorectomy. Status post abdominal hysterectomy Status post breast biopsy Status post cholecystectomy Social History/Home Situation: Pt resides at the [facility] and reports that she is totally (I) at her baseline level of function. She uses a FWW for functional mobility. Pt states that she is claustrophobic and does not like small or closed spaces. She reports that she has an elevator in her home and she enjoys the social aspect of living with other people in the [facility]. Equipment owned/DME: Handicap accessible apartment, [facility] SUBJECTIVE: NT OBJECTIVE: ROM: RUE WFL L UE WFL STRENGTH: requires mod vc for testing position RUE 4-/5 throughout globally LUE 4-/5 throughout globally FUNCTIONAL MOBILITY/ADLS: BATHING sitting in chair with max (A) set up/clean up (I) UE and LE with max(A) back DRESSING sitting in chair Dressing UE (I) don and doffing hospital gown Dressing LE (I) don and doffing (B) socks GROOMING Sitting in chair (I) with brushing hair, max (A) set up for teeth due to pts on going dizziness, standing ADLs were not completed as pt denied. TOILETING on toilet (I) EATING (I) with holding cup and bring cup to mouth, (I) swallowing liquids, (I) hand to mouth BALANCE: Static sitting Normal Dynamic Sitting Normal ASSESSMENT: Patient is a 85-year-old female referred to occupational therapy services with diagnosis of acute kidney injury, dizziness, non insulin dependent type II. Patient reports 2 days of dizziness, unsteady gait with fall involving a head injury, but per EMR no LOC. Pt was seen for 3 skilled OT sessions, she was demonstrating good functional (I) however notes fatigue and decreased functional activity tolerance. Pt was medically cleared per MD and discharged to [facility] on 11/14/20. GOALS 1. Transfers (I)- progressing towards 2. Dressing sitting in chair (I) UE and LE with mod (I)- met 3. Bathing standing at sink (I) with UE- unable to assess due to patients dizziness 4. Toileting on toilet (I)- met 5. Eating (I)- met PLAN OF CARE/TREATMENT PLAN: Pt was medically cleared per MD on 11/15/20 and discharged to [facility] for further rehabilitation at this time. DISCHARGE RECOMMENDATIONS OT recommends that pt return home with services when medically cleared per MD. TREATMENT TIME/MINUTES/CODES N/A Tania Figueroa OTR/L [facility]
--- NOTE | 2020-11-17 12:01 | INDS_ITS ---
Date of service: 11/17/20 Time of Service: 12:01 PT Notes Visit Reasons: ACUTE RENAL FAILURE, HYPOKALEMIA Physical Therapy Inpatient Discharge Summary Date: 11/17/2020 Dates of service: 11/10/2020 through 11/13/2020 This is a clinical summary of care provided on the duration of dates listed above. No charge was made in the completion of this documentation. Referring Doctor: Reva Booth NP PT Orders: PT CONSULT: Eval/treat Precautions: Fall. Standard. Activity as tolerated. Patient Profile/Admitting Diagnosis: Alyssa is an 85-year-old female patient who presented to the ED on 11/11/2020 with chief complaints of dizziness, unsteadiness, and dehydration for the past two days prior to admission which resulted to a fall and head striking against floor. Patient is diagnosed with acute kidney injury, hypokalemia, and dizziness. PMHX: Medical History (Updated 11/09/20 @ 14:33 by Polo Davis MD) Acute hypokalemia Anxiety Bilateral lower extremity edema worse than last visit Blistering of skin due to chronic pedal edema Dr Moulton managing diuretics; home health in to wrap legs Counseling regarding advance directives and goals of care would still be hospitalized but limited interventions and procedures, no ICU, no transfer doesn't mind SNF; liked her last stay at [facility] Diabetes mellitus Times 3 years. DNI (do not intubate) DNR (do not resuscitate) History of CVA (cerebrovascular accident) (12/02/91) a. 1991. History of DVT (deep vein thrombosis) a. History of right DVT and PE. b. IVC filter placed 40 years ago. Iatrogenic pulmonary embolism and infarction IVC clip-1974 Inappropriate behavior Lower extremity edema Mild cognitive impairment with memory loss Osteoarthrosis both hips, right greater than left Osteopenia Palliative care patient Panic attack POLST (Physician Orders for Life-Sustaining Treatment) DPOA lives in [place]; form done 03/23/20; very clearly DNR/DNI Rupture of tendon of biceps, long head (10/31/07) UTI (urinary tract infection) Surgical History History of bilateral salpingo-oophorectomy History of Surgical Procedure a. Cholecystectomy. b. Lysis of adhesions. c. Hysterectomy. d. Oophorectomy. Status post abdominal hysterectomy Status post breast biopsy Status post cholecystectomy Social History/Home Situation: Patient lives alone in an apartment at the [facility]. She is independent with all activities of daily living using the 4 wheeled walker. She stopped going down to the basement apartment building for all her meals since the pandemic started. Equipment Owned/DME: 4-wheeled walker Subjective: NT. See most recent VICE PRESIDENT OF ENGINEERING notes. Objective: General Observation: NT. See most recent VICE PRESIDENT OF ENGINEERING notes. Mental Status: NT. See most recent VICE PRESIDENT OF ENGINEERING notes. Pain: NT. See most recent VICE PRESIDENT OF ENGINEERING notes. ROM: Right Upper Extremity: Shoulder Flexion WFL. Shoulder abduction WFL. Elbow flexion WFL. Wrist flexion WFL. Opening and closing of hand WFL. Left Upper Extremity: Shoulder Flexion WFL. Shoulder abduction WFL. Elbow flexion WFL. Wrist flexion WFL. Opening and closing of hand WFL. Right Lower Extremity: Hip flexion allows up to 90 degrees only. Hip abduction allows about 10 degrees. Knee flexion allows up to 90 degrees. Ankle dorsiflexion WFL. Ankle plantarflexion WFL. Left Lower Extremity: Hip flexion WFL. Hip abduction WFL. Knee flexion WFL. Ankle dorsiflexion WFL. Ankle plantarflexion WFL. Strength: Right Upper Extremity: Shoulder flexors 4/5. Shoulder abductors 4/5. Elbow flexors 5/5. Elbow extensors 5/5. Director Of Field Coordination strong. Left Upper Extremity: Shoulder flexors 4/5. Shoulder abductors 4/5. Elbow flexors 5/5. Elbow extensors 5/5. Director Of Field Coordination strong. Right Lower Extremity: Hip flexors 3-/5. Hip abductors 3-/5. Knee flexors 3-/5. Knee extensors 3-/5. Ankle dorsiflexors 4-/5. Ankle plantarflexors 4-/5. Left Lower Extremity: Hip flexors 4-/5. Hip abductors 4-/5. Knee flexors 4-/5. Knee extensors 4-/5. Ankle dorsiflexors 4-/5. Ankle plantarflexors 4-/5. Sensation: Intact as to pain and pressure on bilateral lower extremities. Bed Mobility/Transfers: Supine to sit SBA Sit to supine SBA Sit to stand SBA Stand to sit SBA Bed to chair SBA Chair to bed SBA Gait: Only agreeable to in room short distance ambulation using front wheeled walker with full weightbearing requiring contact-guard assist for 40 feet with complaints of pain in the right feet and right knee at 7/10 with weight bearing. Complained of dizziness with positional change. Decreased rita. Balance: Static Sitting: Good Dynamic Sitting: Good Static Standing: Fair Dynamic Standing: Fair Assessment: Alyssa continues to demonstrate significant limitation with mobility ADL performance, difficulty with walking, balance impairment, positional vertigo, and generalized weakness with referral to physical therapy to address functional mobility impairment requiring the need for physical therapy services. Patient continues to present with clinical signs and symptoms consistent with current/admitting diagnoses that have resulted to mobility limitations, gait instability, generalized weakness, and impairment of motor control as demonstrated by the following impairment level findings: 1. Decreased strength to B LE major muscle groups 2. Impaired sitting/standing balance due to positional dizziness 3. Impaired activity tolerance 4. Pain in B legs and R knee due to swelling Impairments are continuing to contribute to the following functional limitations: 1. Dependent bed mobility skills 2. Increased dependence with transfers 3. Inability to safely ambulate without assistive device and physical assistance 4. Increase completion time for mobility ADL performance 5. Increased fall risk 6. Inability to negotiate steps alone safely Goals: Goals X1 week 1. Supine-Sit independent NOT MET 2. Sit-Supine independent NOT MET 3. Sit-Stand independent NOT MET 4. Stand-Sit independent NOT MET 5. Bed-Chair independent NOT MET 6. Chair-Bed independent NOT MET 7. Independent gait on level surface with use of 4 wheeled walker for at least 300 feet without report of vertigo 9. Independent with home exercise program NOT MET 10. Good static and dynamic standing balance/tolerance NOT MET DISCHARGE RECOMMENDATIONS: Patient will benefit from alf facility placement for continued skilled physical therapy services in order to progress mobility level, strength, and balance in preparation for a safe discharge to home. TREATMENT CODE/TIME: NC. Thank you very much for this referral. Felicity Diaz PT, DPT, CLT [facility] [place], [place]
== END 2020-11-14 12:27 | disposition skilled nursing facility (03) | DRG 683 ==
LOC: ER 14:33 → MS 15:05
PROVIDERS: Family Medicine; Nurse Practitioner Acute Care; Admitting Provider Internal Medicine; Emergency Provider Emergency Medicine; PCP Nurse Practitioner; Visit Provider Internal Medicine
DX: N17.9 Acute kidney failure, unspecified (principal); L97.821 Non-pressure chronic ulcer of other part of left lower leg limited to breakdown of skin; L97.811 Non-pressure chronic ulcer of other part of right lower leg limited to breakdown of skin; R42 Dizziness and giddiness; E87.6 Hypokalemia; E11.9 Type 2 diabetes mellitus without complications; R26.81 Unsteadiness on feet; W19.XXXA Unspecified fall, initial encounter; D64.9 Anemia, unspecified; E11.649 Type 2 diabetes mellitus with hypoglycemia without coma; S09.90XA Unspecified injury of head, initial encounter; F41.9 Anxiety disorder, unspecified; F32.9 Major depressive disorder, single episode, unspecified; Z66 Do not resuscitate; Z86.73 Personal history of transient ischemic attack (TIA), and cerebral infarction without residual deficits; Z86.718 Personal history of other venous thrombosis and embolism; Z86.711 Personal history of pulmonary embolism; G31.84 Mild cognitive impairment of uncertain or unknown etiology; I83.018 Varicose veins of right lower extremity with ulcer other part of lower leg; I83.028 Varicose veins of left lower extremity with ulcer other part of lower leg; G47.00 Insomnia, unspecified; Z79.84 Long term (current) use of oral hypoglycemic drugs
CPT/HCPCS: 36415; 36416; 80048; 80053; 82962; 85027; 87493; 93005; 96361; 96365; 96368; 97110; 97162; 97165; 97530; 97535; 99223; 99232; 99233; 99239; 99285; U0003; 70450; 71046; 81003; 81015; 83036; 83735; 84484; 85025; 85610; 85730; 93010; J1644; J3480

== ENCOUNTER 2020-11-14 18:29 | Outpatient (REF) | payer MEDICARE, SELFPAY ==
[2020-11-15 17:37] LABS: COVID-19 RT-PCR Result Not Detected ((See Note))
== END 2020-11-14 18:49 ==
LOC: LBN 18:29
PROVIDERS: PCP Nurse Practitioner; Visit Provider Nurse Practitioner Adult Health
DX: Z11.59 Encounter for screening for other viral diseases (principal)
CPT/HCPCS: U0003

== ENCOUNTER 2020-11-18 18:49 | Outpatient (REF) | payer SELFPAY ==
[2020-11-18 15:17] LABS: Abs Immature Grans 0.04 10^3/uL (0.0-0.06); Absolute Basophil Count 0.05 10^3/uL (0.0-0.2); Absolute Eosinophil Count 0.41 10^3/uL (0.0-0.7); Absolute Lymphocyte Count 2.49 10^3/uL (1.2-3.4); Basophils % 0.4; Eosinophils % 3.3; Immature Grans % 0.3; Lymphocytes % 20.1; MCH 27.2 pg (27.0-33.0); MCHC 30.6 % (32.0-36.0); MCV 89.1 fL (80-95); Monocytes % 6.9; Nucleated RBC 0 %; Platelet Count 229 10^3/uL (130-400); RBC 2.57 10^6/uL (3.93-5.22); RDW 19.5 % (11.7-14.6); RDW-SD 63.6 fL; WBC 12.39 10^3/uL (4.4-10.8)
[2020-11-18 15:19] LABS: Absolute Monocyte Count 0.85 10^3/uL (0.1-0.8); Absolute Neutrophil Count 8.55 10^3/uL (1.2-6.7)
[2020-11-18 15:21] LABS: HCT 22.9 % (36.0-46.0)
[2020-11-18 15:46] LABS: ALT 26 U/L (14-59); AST 20 U/L (15-37); Albumin 2.4 g/dL (3.4-5.0); Alkaline Phosphatase 132 U/L (46-116); Anion Gap 7.8 mmol/L (3-11); BUN 33 mg/dL (7-18); Bilirubin, Total 0.2 mg/dL (0.2-1.0); CO2 25.2 mmol/L (21.0-32.0); CREATININE 2.37 mg/dL (0.55-1.02); Calcium 8.2 mg/dL (8.5-10.1); Chloride 106 mmol/L (98-107); Estimated GFR 19.56 (mL/min/1.73m2); Glucose 158 mg/dL (74-106); Potassium 4.7 mmol/L (3.5-5.1); Sodium 139 mmol/L (136-145); Total Protein 5.5 g/dL (6.4-8.2)
[2020-11-21 09:56] LABS: COVID-19 RT-PCR Result Not Detected ((See Note))
== END 2020-11-18 19:09 ==
LOC: LBN 18:49
PROVIDERS: Family Medicine; PCP Nurse Practitioner; Visit Provider Nurse Practitioner Adult Health
DX: N17.9 Acute kidney failure, unspecified (principal); E87.8 Other disorders of electrolyte and fluid balance, not elsewhere classified; Z11.59 Encounter for screening for other viral diseases
CPT/HCPCS: 80053; U0003; 85025

== ENCOUNTER 2020-11-20 08:09 | Outpatient (REF) | payer MEDICARE, SELFPAY | END 2020-11-20 08:29 | LOC: LBN 08:09 | PROVIDERS: PCP Nurse Practitioner; Visit Provider Family Medicine | DX: R19.5 Other fecal abnormalities (principal) | CPT/HCPCS: 82272 ==

== ENCOUNTER 2020-11-23 15:49 | Outpatient (REF) | payer MEDICARE, SELFPAY ==
[2020-11-23 17:13] LABS: Abs Immature Grans 0.04 10^3/uL (0.0-0.06); Absolute Basophil Count 0.04 10^3/uL (0.0-0.2); Absolute Eosinophil Count 0.33 10^3/uL (0.0-0.7); Absolute Lymphocyte Count 1.95 10^3/uL (1.2-3.4); Absolute Monocyte Count 0.66 10^3/uL (0.1-0.8); Basophils % 0.4; HCT 23.2 % (36.0-46.0); Immature Grans % 0.4; MCH 26.9 pg (27.0-33.0); MCHC 30.2 % (32.0-36.0); MCV 89.2 fL (80-95); MPV 8.9 fL (8.0-11.0); Monocytes % 6.1; Neutrophils % 72.1; Nucleated RBC 0 %; Platelet Count 326 10^3/uL (130-400); RDW-SD 61.9 fL; WBC 10.85 10^3/uL (4.4-10.8)
[2020-11-23 17:24] LABS: Absolute Neutrophil Count 7.82 10^3/uL (1.2-6.7)
== END 2020-11-23 16:09 ==
LOC: LBN 15:49
PROVIDERS: PCP Nurse Practitioner; Visit Provider Family Medicine
DX: R79.89 Other specified abnormal findings of blood chemistry (principal)
CPT/HCPCS: 85025

== ENCOUNTER 2020-11-24 12:33 | Outpatient (REF) | payer SELFPAY ==
[2020-11-26 17:57] LABS: COVID-19 RT-PCR Result Not Detected ((See Note))
== END 2020-11-24 12:53 ==
LOC: LBN 12:33
PROVIDERS: PCP Nurse Practitioner; Visit Provider Nurse Practitioner Adult Health
DX: R19.5 Other fecal abnormalities (principal); Z11.59 Encounter for screening for other viral diseases
CPT/HCPCS: U0003; 82272

== ENCOUNTER 2020-11-28 15:54 | Outpatient (REF) | payer SELFPAY ==
[2020-11-28 16:30] LABS: Abs Immature Grans 0.02 10^3/uL (0.0-0.06); Absolute Basophil Count 0.03 10^3/uL (0.0-0.2); Absolute Eosinophil Count 0.41 10^3/uL (0.0-0.7); Absolute Lymphocyte Count 2.08 10^3/uL (1.2-3.4); Absolute Monocyte Count 0.63 10^3/uL (0.1-0.8); Absolute Neutrophil Count 5.84 10^3/uL (1.2-6.7); Basophils % 0.3; Eosinophils % 4.6; Immature Grans % 0.2; Lymphocytes % 23.1; MCH 27.3 pg (27.0-33.0); MCHC 30.4 % (32.0-36.0); MCV 89.8 fL (80-95); MPV 8.7 fL (8.0-11.0); Neutrophils % 64.8; Nucleated RBC 0 %; Platelet Count 368 10^3/uL (130-400); RBC 2.56 10^6/uL (3.93-5.22); RDW 18.6 % (11.7-14.6); RDW-SD 61.8 fL; WBC 9.01 10^3/uL (4.4-10.8)
[2020-11-28 16:35] LABS: Anion Gap 5.8 mmol/L (3-11); BUN 23 mg/dL (7-18); CO2 34.2 mmol/L (21.0-32.0); CREATININE 3.06 mg/dL (0.55-1.02); Calcium 8.3 mg/dL (8.5-10.1); Chloride 102 mmol/L (98-107); Estimated GFR 14.57 (mL/min/1.73m2); Glucose 134 mg/dL (74-106); Potassium 3.8 mmol/L (3.5-5.1); Sodium 142 mmol/L (136-145)
[2020-11-28 18:18] LABS: Hemoglobin A1C 5.8 % (<5.7)
[2020-11-29 17:07] LABS: COVID-19 RT-PCR Result Not Detected ((See Note))
== END 2020-11-28 16:14 ==
LOC: LBN 15:54
PROVIDERS: PCP Nurse Practitioner; Visit Provider Nurse Practitioner Adult Health
DX: E11.9 Type 2 diabetes mellitus without complications (principal); N17.9 Acute kidney failure, unspecified; Z11.59 Encounter for screening for other viral diseases
CPT/HCPCS: 80048; U0003; 83036; 85025

== ENCOUNTER 2020-12-05 19:00 | Outpatient (REF) | payer MEDICARE, SELFPAY ==
[2020-12-05 17:40] LABS: Abs Immature Grans 0.04 10^3/uL (0.0-0.06); Absolute Basophil Count 0.05 10^3/uL (0.0-0.2); Absolute Eosinophil Count 0.36 10^3/uL (0.0-0.7); Absolute Lymphocyte Count 1.98 10^3/uL (1.2-3.4); Absolute Monocyte Count 0.83 10^3/uL (0.1-0.8); Basophils % 0.4; Eosinophils % 3.1; HCT 22.5 % (36.0-46.0); Immature Grans % 0.3; Lymphocytes % 17.2; MCH 26.8 pg (27.0-33.0); MCHC 30.2 % (32.0-36.0); MCV 88.6 fL (80-95); MPV 8.7 fL (8.0-11.0); Monocytes % 7.2; Neutrophils % 71.8; Nucleated RBC 0 %; Platelet Count 372 10^3/uL (130-400); RBC 2.54 10^6/uL (3.93-5.22); RDW 17.5 % (11.7-14.6); RDW-SD 57.1 fL; WBC 11.49 10^3/uL (4.4-10.8)
[2020-12-05 18:00] LABS: Anion Gap 2.5 mmol/L (3-11); BUN 28 mg/dL (7-18); CO2 39.5 mmol/L (21.0-32.0); CREATININE 3.25 mg/dL (0.55-1.02); Calcium 8.4 mg/dL (8.5-10.1); Chloride 97 mmol/L (98-107); Estimated GFR 13.59 (mL/min/1.73m2); Glucose 165 mg/dL (74-106); Magnesium 2.3 mg/dL (1.8-2.4); Potassium 3.2 mmol/L (3.5-5.1); Sodium 139 mmol/L (136-145)
[2020-12-05 18:21] LABS: Absolute Neutrophil Count 8.25 10^3/uL (1.2-6.7)
[2020-12-05 18:55] LABS: HGB 6.8 g/dL (11.2-15.7)
== END 2020-12-05 19:20 ==
LOC: LBN 19:00
PROVIDERS: PCP Nurse Practitioner; Visit Provider Family Medicine
DX: E03.9 Hypothyroidism, unspecified (principal); E11.9 Type 2 diabetes mellitus without complications; N17.9 Acute kidney failure, unspecified; I50.9 Heart failure, unspecified
CPT/HCPCS: 80048; 83735; 84443; 85025

== ENCOUNTER 2020-12-06 12:26 | Outpatient (REF) | payer MEDICARE, SELFPAY | END 2020-12-06 12:46 | LOC: LBN 12:26 | PROVIDERS: PCP Nurse Practitioner; Visit Provider Family Medicine | DX: N39.0 Urinary tract infection, site not specified (principal) | CPT/HCPCS: 87086 ==

== ENCOUNTER 2020-12-07 18:39 | Outpatient (REF) | payer MEDICARE, SELFPAY ==
[2020-12-07 15:14] LABS: Abs Immature Grans 0.05 10^3/uL (0.0-0.06); Absolute Basophil Count 0.04 10^3/uL (0.0-0.2); Absolute Eosinophil Count 0.31 10^3/uL (0.0-0.7); Absolute Lymphocyte Count 2.45 10^3/uL (1.2-3.4); Absolute Monocyte Count 0.76 10^3/uL (0.1-0.8); Basophils % 0.4; Eosinophils % 2.9; HCT 23.3 % (36.0-46.0); Immature Grans % 0.5; Lymphocytes % 23.1; MCH 26.7 pg (27.0-33.0); MCV 88.9 fL (80-95); MPV 8.8 fL (8.0-11.0); Monocytes % 7.2; Neutrophils % 65.9; Nucleated RBC 0 %; Platelet Count 365 10^3/uL (130-400); RBC 2.62 10^6/uL (3.93-5.22); RDW 17.4 % (11.7-14.6); RDW-SD 56.5 fL; WBC 10.61 10^3/uL (4.4-10.8)
[2020-12-07 15:50] LABS: ALT 16 U/L (14-59); AST 17 U/L (15-37); Albumin 2.6 g/dL (3.4-5.0); Alkaline Phosphatase 113 U/L (46-116); Anion Gap 6.2 mmol/L (3-11); BUN 28 mg/dL (7-18); Bilirubin, Total 0.3 mg/dL (0.2-1.0); CO2 39.8 mmol/L (21.0-32.0); CREATININE 3.23 mg/dL (0.55-1.02); Calcium 8.4 mg/dL (8.5-10.1); Chloride 96 mmol/L (98-107); Estimated GFR 13.68 (mL/min/1.73m2); Glucose 136 mg/dL (74-106); Potassium 3.5 mmol/L (3.5-5.1); Sodium 142 mmol/L (136-145); Total Protein 6.1 g/dL (6.4-8.2)
== END 2020-12-07 18:59 ==
LOC: LBN 18:39
PROVIDERS: PCP Nurse Practitioner; Visit Provider Nurse Practitioner Adult Health
DX: D64.9 Anemia, unspecified (principal)
CPT/HCPCS: 80053; 85025

== ENCOUNTER 2020-12-16 09:51 | Outpatient (REF) | payer MEDICARE, SELFPAY ==
[2020-12-16 11:09] LABS: Abs Immature Grans 0.04 10^3/uL (0.0-0.06); Absolute Basophil Count 0.06 10^3/uL (0.0-0.2); Absolute Eosinophil Count 0.37 10^3/uL (0.0-0.7); Absolute Lymphocyte Count 2.26 10^3/uL (1.2-3.4); Absolute Monocyte Count 0.75 10^3/uL (0.1-0.8); Absolute Neutrophil Count 7.28 10^3/uL (1.2-6.7); Basophils % 0.6; Eosinophils % 3.4; HCT 23.3 % (36.0-46.0); HGB 7.2 g/dL (11.2-15.7); Immature Grans % 0.4; MCHC 30.9 % (32.0-36.0); MCV 87.3 fL (80-95); MPV 8.8 fL (8.0-11.0); Neutrophils % 67.6; Nucleated RBC 0 %; Platelet Count 300 10^3/uL (130-400); RBC 2.67 10^6/uL (3.93-5.22); RDW 16.9 % (11.7-14.6); RDW-SD 53.4 fL; WBC 10.76 10^3/uL (4.4-10.8)
[2020-12-16 11:16] LABS: Anion Gap 4.3 mmol/L (3-11); BUN 36 mg/dL (7-18); CO2 38.7 mmol/L (21.0-32.0); CREATININE 3.29 mg/dL (0.55-1.02); Chloride 95 mmol/L (98-107); Glucose 164 mg/dL (74-106); Potassium 3.5 mmol/L (3.5-5.1); Sodium 138 mmol/L (136-145)
== END 2020-12-16 10:11 ==
LOC: NCHCN 09:51
PROVIDERS: PCP Nurse Practitioner; Visit Provider Nurse Practitioner Adult Health
DX: N17.9 Acute kidney failure, unspecified (principal); D64.9 Anemia, unspecified
CPT/HCPCS: 80048; 85025

== ENCOUNTER 2020-12-26 19:37 | Outpatient (REF) | payer MEDICARE, SELFPAY ==
[2020-12-26 17:12] LABS: Abs Immature Grans 0.04 10^3/uL (0.0-0.06); Absolute Basophil Count 0.05 10^3/uL (0.0-0.2); Absolute Eosinophil Count 0.48 10^3/uL (0.0-0.7); Absolute Monocyte Count 0.76 10^3/uL (0.1-0.8); Absolute Neutrophil Count 6.48 10^3/uL (1.2-6.7); Basophils % 0.5; Eosinophils % 4.8; HCT 21.1 % (36.0-46.0); Immature Grans % 0.4; MCH 27.4 pg (27.0-33.0); MCHC 30.8 % (32.0-36.0); MPV 8.7 fL (8.0-11.0); Monocytes % 7.6; Neutrophils % 64.7; Nucleated RBC 0 %; Platelet Count 260 10^3/uL (130-400); RBC 2.37 10^6/uL (3.93-5.22); RDW 16.5 % (11.7-14.6); RDW-SD 54.3 fL; WBC 10.01 10^3/uL (4.4-10.8)
[2020-12-26 17:21] LABS: HGB 6.5 g/dL (11.2-15.7)
[2020-12-26 17:35] LABS: ALT 11 U/L (14-59); AST 10 U/L (15-37); Albumin 2.9 g/dL (3.4-5.0); Alkaline Phosphatase 104 U/L (46-116); Anion Gap 2.8 mmol/L (3-11); BUN 36 mg/dL (7-18); Bilirubin, Total 0.3 mg/dL (0.2-1.0); CO2 39.2 mmol/L (21.0-32.0); CREATININE 3.35 mg/dL (0.55-1.02); Calcium 8.2 mg/dL (8.5-10.1); Chloride 91 mmol/L (98-107); Estimated GFR 13.12 (mL/min/1.73m2); Glucose 248 mg/dL (74-106); Potassium 3.4 mmol/L (3.5-5.1); Sodium 133 mmol/L (136-145); Total Protein 6.3 g/dL (6.4-8.2)
== END 2020-12-26 19:57 ==
LOC: LBN 19:37
PROVIDERS: Visit Provider Nurse Practitioner Adult Health
DX: I50.9 Heart failure, unspecified (principal); R07.9 Chest pain, unspecified; E11.9 Type 2 diabetes mellitus without complications; D64.9 Anemia, unspecified; E78.5 Hyperlipidemia, unspecified
CPT/HCPCS: 80053; 85025

== ENCOUNTER 2020-12-30 16:27 | Outpatient (REF) | payer MEDICARE, SELFPAY ==
[2020-12-30 18:43] LABS: Abs Immature Grans 0.03 10^3/uL (0.0-0.06); Absolute Basophil Count 0.05 10^3/uL (0.0-0.2); Absolute Eosinophil Count 0.42 10^3/uL (0.0-0.7); Absolute Lymphocyte Count 1.77 10^3/uL (1.2-3.4); Absolute Monocyte Count 0.73 10^3/uL (0.1-0.8); Absolute Neutrophil Count 5.74 10^3/uL (1.2-6.7); Basophils % 0.6; Eosinophils % 4.8; HCT 21.3 % (36.0-46.0); Immature Grans % 0.3; Lymphocytes % 20.3; MCV 87.3 fL (80-95); Monocytes % 8.4; Neutrophils % 65.6; Nucleated RBC 0 %; Platelet Count 273 10^3/uL (130-400); RBC 2.44 10^6/uL (3.93-5.22); RDW 15.9 % (11.7-14.6); RDW-SD 51.3 fL; WBC 8.74 10^3/uL (4.4-10.8)
[2020-12-30 18:48] LABS: HGB 6.6 g/dL (11.2-15.7)
== END 2020-12-30 16:47 ==
LOC: LBN 16:27
PROVIDERS: Visit Provider Nurse Practitioner Adult Health
DX: N17.9 Acute kidney failure, unspecified (principal); D64.9 Anemia, unspecified
CPT/HCPCS: 85025

== ENCOUNTER 2021-01-27 17:44 | Outpatient (REF) | payer MEDICARE, SELFPAY ==
[2021-01-27 18:22] LABS: Abs Immature Grans 0.02 10^3/uL (0.0-0.06); Absolute Basophil Count 0.05 10^3/uL (0.0-0.2); Absolute Eosinophil Count 0.31 10^3/uL (0.0-0.7); Absolute Lymphocyte Count 1.66 10^3/uL (1.2-3.4); Absolute Monocyte Count 0.74 10^3/uL (0.1-0.8); Absolute Neutrophil Count 5.85 10^3/uL (1.2-6.7); Basophils % 0.6; Eosinophils % 3.6; Immature Grans % 0.2; Lymphocytes % 19.2; MCH 27.4 pg (27.0-33.0); MCHC 31.4 % (32.0-36.0); MCV 87.1 fL (80-95); MPV 9.2 fL (8.0-11.0); Monocytes % 8.6; Neutrophils % 67.8; Nucleated RBC 0 %; Platelet Count 266 10^3/uL (130-400); RBC 2.41 10^6/uL (3.93-5.22); RDW 15.1 % (11.7-14.6); RDW-SD 48.8 fL; WBC 8.63 10^3/uL (4.4-10.8)
[2021-01-27 18:45] LABS: Anion Gap 4.5 mmol/L (3-11); BUN 58 mg/dL (7-18); CO2 41.5 mmol/L (21.0-32.0); CREATININE 3.4 mg/dL (0.55-1.02); Calcium 8.6 mg/dL (8.5-10.1); Chloride 86 mmol/L (98-107); Glucose 243 mg/dL (74-106); Sodium 132 mmol/L (136-145)
[2021-01-27 19:11] LABS: HGB 6.6 g/dL (11.2-15.7)
== END 2021-01-27 17:45 | disposition home or self-care (01) ==
LOC: LBN 17:44
PROVIDERS: Visit Provider Nurse Practitioner Adult Health
DX: N18.9 Chronic kidney disease, unspecified (principal)
CPT/HCPCS: 80048; 85025

== ENCOUNTER 2021-02-03 15:28 | Outpatient (REF) | payer MEDICARE, SELFPAY ==
[2021-02-03 18:20] LABS: HCT 23.5 % (36.0-46.0); HGB 7.3 g/dL (11.2-15.7); MCH 27.3 pg (27.0-33.0); MCHC 31.1 % (32.0-36.0); Platelet Count 241 10^3/uL (130-400); RBC 2.67 10^6/uL (3.93-5.22); RDW-SD 48.4 fL; Reticulocyte 1.8 % (0.5-2.4); WBC 9.65 10^3/uL (4.4-10.8)
[2021-02-03 18:54] LABS: Iron 24 ug/dL (50-170)
[2021-02-03 19:02] LABS: Anion Gap 5.7 mmol/L (3-11); BUN 69 mg/dL (7-18); CO2 41.3 mmol/L (21.0-32.0); Calcium 9.1 mg/dL (8.5-10.1); Chloride 91 mmol/L (98-107); Ferritin 74 ng/mL (8-252); Glucose 329 mg/dL (74-106); Potassium 3.5 mmol/L (3.5-5.1); Sodium 138 mmol/L (136-145)
[2021-02-03 19:25] LABS: CREATININE 3.7 mg/dL (0.55-1.02)
== END 2021-02-03 15:29 | disposition home or self-care (01) ==
LOC: LBN 15:28
PROVIDERS: Visit Provider Family Medicine
DX: D64.9 Anemia, unspecified (principal)
CPT/HCPCS: 80048; 82668; 85027; 82728; 83540; 85045

== ENCOUNTER 2021-02-10 16:25 | Outpatient (REF) | payer MEDICARE, SELFPAY ==
[2021-02-10 18:14] LABS: HCT 21.6 % (36.0-46.0)
[2021-02-10 18:30] LABS: HGB 6.9 g/dL (11.2-15.7)
== END 2021-02-10 16:26 | disposition home or self-care (01) ==
LOC: LBN 16:25
PROVIDERS: Visit Provider Nurse Practitioner Adult Health
DX: D64.9 Anemia, unspecified (principal)
CPT/HCPCS: 85014; 85018

== ENCOUNTER 2021-02-19 16:52 | Outpatient (REF) | payer MEDICARE, SELFPAY ==
[2021-02-18 17:55] LABS: HCT 24.8 % (36.0-46.0); HGB 7.9 g/dL (11.2-15.7)
== END 2021-02-19 16:53 | disposition home or self-care (01) ==
LOC: LBN 16:52
PROVIDERS: PCP Nurse Practitioner Adult Health; Visit Provider Nurse Practitioner Adult Health
DX: D64.9 Anemia, unspecified (principal); E78.5 Hyperlipidemia, unspecified
CPT/HCPCS: 85014; 85018

== ENCOUNTER 2021-02-24 15:21 | Outpatient (REF) | payer MEDICARE, SELFPAY ==
[2021-02-24 15:19] LABS: HCT 25.2 % (36.0-46.0); HGB 8.1 g/dL (11.2-15.7)
== END 2021-02-24 15:22 | disposition home or self-care (01) ==
LOC: LBN 15:21
PROVIDERS: PCP Nurse Practitioner Adult Health; Visit Provider Nurse Practitioner Adult Health
DX: D64.9 Anemia, unspecified (principal)
CPT/HCPCS: 85014; 85018

== ENCOUNTER 2021-03-03 11:39 | Outpatient (REF) | payer MEDICARE, SELFPAY ==
[2021-03-03 11:50] LABS: HCT 24.5 % (36.0-46.0); HGB 7.9 g/dL (11.2-15.7)
== END 2021-03-03 11:40 | disposition home or self-care (01) ==
LOC: LBN 11:39
PROVIDERS: PCP Nurse Practitioner Adult Health; Visit Provider Family Medicine
DX: D64.9 Anemia, unspecified (principal)
CPT/HCPCS: 85014; 85018

== ENCOUNTER 2021-03-10 15:05 | Outpatient (REF) | payer MEDICARE, SELFPAY ==
[2021-03-10 15:27] LABS: HCT 24.8 % (36.0-46.0); HGB 7.9 g/dL (11.2-15.7); MCH 27.2 pg (27.0-33.0); MCHC 31.9 % (32.0-36.0); MCV 85.5 fL (80-95); MPV 9.3 fL (8.0-11.0); Platelet Count 248 10^3/uL (130-400); RDW 14.4 % (11.7-14.6); RDW-SD 44.5 fL; WBC 9.14 10^3/uL (4.4-10.8)
== END 2021-03-10 15:06 | disposition home or self-care (01) ==
LOC: LBN 15:05
PROVIDERS: PCP Nurse Practitioner Adult Health; Visit Provider Nurse Practitioner Adult Health
DX: D64.9 Anemia, unspecified (principal)
CPT/HCPCS: 85027

== ENCOUNTER 2021-03-17 12:21 | Outpatient (REF) | payer MEDICARE, SELFPAY ==
[2021-03-17 13:49] LABS: HGB 8.2 g/dL (11.2-15.7)
== END 2021-03-17 12:22 | disposition home or self-care (01) ==
LOC: LBN 12:21
PROVIDERS: PCP Nurse Practitioner Adult Health; Visit Provider Family Medicine
DX: D64.9 Anemia, unspecified (principal)
CPT/HCPCS: 85014; 85018

== ENCOUNTER 2021-03-24 16:45 | Outpatient (REF) | payer MEDICARE, SELFPAY ==
[2021-03-24 18:19] LABS: HCT 24.8 % (36.0-46.0); HGB 7.9 g/dL (11.2-15.7)
== END 2021-03-24 16:46 | disposition home or self-care (01) ==
LOC: LBN 16:45
PROVIDERS: Family Medicine; PCP Nurse Practitioner Adult Health; Visit Provider Nurse Practitioner Adult Health
DX: D64.9 Anemia, unspecified (principal)
CPT/HCPCS: 85014; 85018

== ENCOUNTER 2021-03-31 19:07 | Outpatient (REF) | payer MEDICARE, SELFPAY ==
[2021-03-31 15:42] LABS: HCT 24.8 % (36.0-46.0)
== END 2021-03-31 19:08 | disposition home or self-care (01) ==
LOC: LBN 19:07
PROVIDERS: PCP Nurse Practitioner Adult Health; Visit Provider Family Medicine
DX: D64.9 Anemia, unspecified (principal)
CPT/HCPCS: 85014; 85018

== ENCOUNTER 2021-04-07 15:13 | Outpatient (REF) | payer MEDICARE, SELFPAY ==
[2021-04-07 16:14] LABS: HCT 25.3 % (36.0-46.0)
== END 2021-04-07 15:14 | disposition home or self-care (01) ==
LOC: LBN 15:13
PROVIDERS: PCP Nurse Practitioner Adult Health; Visit Provider Family Medicine
DX: D64.9 Anemia, unspecified (principal)
CPT/HCPCS: 85014; 85018

== ENCOUNTER 2021-04-14 11:51 | Outpatient (REF) | payer MEDICARE, MEDICAID, SELFPAY ==
[2021-04-14 12:14] LABS: HGB 8.1 g/dL (11.2-15.7)
== END 2021-04-14 11:52 | disposition home or self-care (01) ==
LOC: LBN 11:51
PROVIDERS: PCP Nurse Practitioner Adult Health; Visit Provider Family Medicine
DX: D64.9 Anemia, unspecified (principal)
CPT/HCPCS: 85014; 85018

== ENCOUNTER 2021-04-21 11:25 | Outpatient (REF) | payer MEDICARE, MEDICAID, SELFPAY ==
[2021-04-21 13:18] LABS: HGB 8.1 g/dL (11.2-15.7)
== END 2021-04-21 11:26 | disposition home or self-care (01) ==
LOC: LBN 11:25
PROVIDERS: PCP Nurse Practitioner Adult Health; Visit Provider Family Medicine
DX: D64.9 Anemia, unspecified (principal)
CPT/HCPCS: 85014; 85018

== ENCOUNTER 2021-04-29 17:40 | Outpatient (REF) | payer MEDICARE, MEDICAID, SELFPAY ==
[2021-04-29 17:56] LABS: HCT 26.2 % (36.0-46.0); HGB 8.4 g/dL (11.2-15.7)
== END 2021-04-29 17:41 | disposition home or self-care (01) ==
LOC: LBN 17:40
PROVIDERS: PCP Nurse Practitioner Adult Health; Visit Provider Family Medicine
DX: D64.9 Anemia, unspecified (principal)
CPT/HCPCS: 85014; 85018

== ENCOUNTER 2021-06-02 15:00 | Outpatient (REF) | payer MEDICARE, MEDICAID, SELFPAY ==
[2021-06-02 16:15] LABS: HCT 24.3 % (36.0-46.0); HGB 7.8 g/dL (11.2-15.7)
== END 2021-06-02 15:01 | disposition home or self-care (01) ==
LOC: LBN 15:00
PROVIDERS: PCP Nurse Practitioner Adult Health; Visit Provider Family Medicine
DX: D64.9 Anemia, unspecified (principal)
CPT/HCPCS: 85014; 85018

== ENCOUNTER 2021-06-09 16:18 | Outpatient (REF) | payer MEDICARE, MEDICAID, SELFPAY ==
[2021-06-09 17:31] LABS: HCT 22.3 % (36.0-46.0); HGB 7.1 g/dL (11.2-15.7)
== END 2021-06-09 16:19 | disposition home or self-care (01) ==
LOC: LBN 16:18
PROVIDERS: PCP Nurse Practitioner Adult Health; Visit Provider Family Medicine
DX: D64.9 Anemia, unspecified (principal)
CPT/HCPCS: 85014; 85018

== ENCOUNTER 2021-06-16 14:05 | Outpatient (REF) | payer MEDICARE, MEDICAID, SELFPAY ==
[2021-06-16 20:12] LABS: HCT 21.3 % (36.0-46.0)
== END 2021-06-16 14:06 | disposition home or self-care (01) ==
LOC: LBN 14:05
PROVIDERS: PCP Nurse Practitioner Adult Health; Visit Provider Family Medicine
DX: D64.9 Anemia, unspecified (principal); I50.9 Heart failure, unspecified; I87.313 Chronic venous hypertension (idiopathic) with ulcer of bilateral lower extremity
CPT/HCPCS: 85014; 85018

== ENCOUNTER 2021-06-20 20:42 | Emergency (ER) | payer MEDICARE, MEDICAID, SELFPAY ==
[2021-06-20] VITALS (35 sets, daily range): BP systolic 100–123; BP diastolic 34–51; PULSE 62–86; RESP 13–21; TEMP 36.5–36.7; O2SAT 85–96
--- NOTE | 2021-06-20 20:58 | W.ED.GENAD ---
Discharge Plan Disposition Patient Disposition: SNF (LEVEL 1) [facility] Condition: Stable Discharge Details Clinical Impression: Anemia, Hypokalemia Primary Care Provider: Batsheva Kyle ED Provider: Michell Dennis [place] Meds and New Rx's Prescriptions: Continued (DME) blood-glucose meter [OneTouch Ultra2 Meter] kit See Dose Instructions .ROUTE .MEDSUPPLY Qty: 1 RF: 0 (DME) lancets [Prodigy Lancets] 1 EACH misc 1 ea Miscellaneous BID Qty: 100 RF: 6 (DME) lancets [OneTouch Delica Lancets] 1 EACH misc 1 ea Miscellaneous BID Qty: 100 RF: 4 prazosin 2 mg capsule 2 mg PO HS Qty: 90 RF: 3 Hold Instructions: Home Medication placed on hold at Doctor's office (DME) Comfort EZ Pen [place] 33 gauge x 3/16 needle See Rx Instructions .ROUTE .MEDSUPPLY Qty: 100 RF: 4 simvastatin [Zocor] 40 mg tablet 40 mg PO DAILY Qty: 90 RF: 4 (DME) OneTouch Ultra Blue Test Strip Strip See Rx Instructions .ROUTE .MEDSUPPLY Qty: 100 RF: 4 donepezil 10 mg tablet 10 mg PO DAILY Qty: 90 RF: 4 albuterol sulfate [Ventolin HFA] 90 mcg/actuation HFA aerosol inhaler 2 puff Inhalation Q4H PRN PRN (Reason: shortness of breath or wheezing) Qty: 1 RF: 3 pantoprazole 40 mg tablet,delayed release (DR/EC) 40 mg PO DAILY Qty: 90 RF: 3 sertraline 100 mg tablet 100 mg PO DAILY Qty: 90 RF: 4 psyllium husk (aspartame) 3.5 gram Powder In Packet 1 packet PO QDAY RF: 0 aspirin 325 mg Tablet 325 mg PO DAILY Qty: 0 RF: 0 melatonin 3 mg Tablet Extended Release 6 mg PO HS Qty: 0 RF: 0 acetaminophen [Tylenol] 325 mg Tablet 650 mg PO Q6H PRN PRNQty: 0 RF: 0 bisacodyl [Dulcolax (bisacodyl)] 10 mg Suppository 10 mg [place] DIRECTED PRNRF: 0 Procrit 10,000 unit/mL solution 10,000 unit subcut QWEEK RF: 0 furosemide 40 mg tablet 80 mg PO DAILY RF: 0 metolazone 2.5 mg tablet 2.5 mg PO DAILY RF: 0 potassium chloride 20 mEq tablet,ER particles/crystals 20 meq PO DAILY RF: 0 magnesium oxide 400 mg (241.3 mg magnesium) tablet 400 mg PO BID RF: 0 ferrous sulfate 325 mg (65 mg iron) Tablet 325 mg PO DAILY RF: 0 gabapentin 100 mg capsule 300 mg PO TID RF: 0 insulin lispro 100 unit/mL solution 10 unit subcut DAILY RF: 0 memantine [Namenda] 5 mg Tablet 5 mg PO DAILY RF: 0 Lantus Solostar U-100 Insulin 100 unit/mL (3 mL) insulin pen 28 unit subcut DAILY RF: 0 Discharge Instructions Instructions: Hypokalemia (ED), Anemia (ED) Additional Instructions: At this time the patient's hemoglobin was noted to be slightly lower than normal. There was no evidence of GI bleed or other clear source of bleeding at this time. Since the hemoglobin level was only slightly diminished the patient was given 2 units of packed red blood cells. Additionally her potassium was noted to be slightly low at 2.8. The patient was given 40 mEq of oral potassium and 20 mEq of IV potassium. Recommendations for repeat potassium and hemoglobin levels over the next week. Recommend continued supplementation of potassium and magnesium on an outpatient basis. If you notice any worsening of the patient's symptoms, or any new symptoms such as vomiting, diarrhea, fever, chills, shortness of breath, chest pain, numbness, weakness, or fainting , please return immediately to the emergency department for reevaluation. Please follow up with her primary care provider as soon as possible for reassessment and reevaluation. As always, it was a pleasure participating in your medical care today. Referrals: Batsheva Kyle [Primary Care Provider] - Discharge Data Discharge Date/Time-TO BE ENTERED AT DEPARTURE: 06/21/21 05:20 Medical Decision Making <SERENE Cleaning - Last Filed: 06/21/21 08:44> Patient is an 86 year old female presenting today with c/c of weakness. She states that this began yesterday. Has had declining H&H over the past 2 months. Came in this evening, via EMS from [facility], with increased weakness and hemoglobin of 7.0 four day ago. She denies any bleeding. No change in diet. STates that she can feel lightheaded. No fevers or chills. Denies SOB or CP. Denies change in bowel habits. No hematuria. Patient is not anticoagulated. PMH pertinent for his stasis ulcers, bilateral lower extremity edema, atrial septal aneurysm, dizziness, type 2 diabetes, hypertension, mild cognitive impairment with memory loss, obesity, anemia. Patient has been on Epogen. This was stopped recently, unclear when her last dosing was. Patient is also on 80 mg of furosemide. On exam, patient appears chronically ill. She appears pale. Lungs are clear. She does have a notable murmur, this is been documented previously. She does have some discomfort with palpation over the left lower quadrant of her abdomen. No peritoneal findings. Rectal exam was performed. Rectal vault is clean, unable to obtain hemoccult testing. Primarily concerned for worsening anemia. This may be secondary to unidentified source of bleeding vs. lack of epogen. Will obtain repeat labs including type and screen. Contacted by the lab Hgb 6.6, Hct 20. Potassium 2.8. Will replenish this. Plan for 2U pRBC. Discussed anemia with patient. She and I had lengthy chat regarding risks/benefits of transfusion. She voices understanding and wishes to proceed. Last had cardiac imaging in 2019. At that time, patient had an EF of 75%. Normal LV systolic function. Will reevaluate patient after fluids to check for evidence of increasing fluid retention and need for further diuresis. Remaining labs signficant for Na 127, bicarb 43.5, BUN 70, creatinine 3.3. Creatinine is baseline for the patient. At the end of my shift, care transitioned to Dr. Weeks with reassessment pending. Patient will need to be monitored for fluid overload. She has received 60meq potassium. She is hemodynamically stable, resting comfortably. She has been sleeping here. After replenishment, plan to d/c back to H&H if improving and continued stability. <Alberto Weeks DO - Last Filed: 06/21/21 05:12> The patient was signed out to me by Michell Barton. Please refer to her HPI, physical exam, assessment and plan. At time of signout request is made for reassessment after blood and potassium products had been delivered. Blood and potassium products of finished, on reassessment the patient continues to look stable and otherwise well. She is interactive, and shows no signs of medical instability at this time. Hemoccult was negative for any evidence of blood. No overt evidence of GI bleed at this time. Patient was given 2 units of PRBCs, and 60 mEq total of IV and p.o. potassium Combined. Recommend continued monitoring of potassium on outpatient basis at the patient's health and rehab facility, as well as continued hemoglobin checks. It may be beneficial to restart the patient's the patient again on an outpatient basis. Case was discussed with health and rehab nursing staff. Patient will be transferred back to facility. The patient was made aware of what symptoms to monitor for that would warrant a return to the emergency department. Discussed the plan with the patient, they demonstrate verbal understanding and agreement with our assessment and plan at this time. The documentation in this chart was dictated using Tangoe dictation software. Please excuse any dictation errors. HPI <SERENE Cleaning - Last Filed: 06/21/21 08:44> General Mode of arrival: EMS. Date/Time Provider Initiated Documentation: 06/20/21 22:13. Limitations to Documentation: no limitations. Information obtained by: patient. History of Present Illness 86 year old F presents to the emergency department with the chief complaint of weakness, described as moderate, Patient started experiencing this day(s) (1) and it has been constant. No relieving factors improve symptom(s), No exacerbating factors reported . Patient notes weakness (generalized); denies chest pain, diaphoresis, fever/chills, loss of appetite, nausea/vomiting, shortness of breath and syncope. Patient did receive the following treatments prior to arrival, none Related Data Home Medications Medication Instructions Recorded Confirmed lancets [Prodigy Lancets] #100 ea 08/17/15 06/20/21 lancets [OneTouch Delica Lancets] #100 ea 03/22/16 06/20/21 blood-glucose meter #1 each 01/22/19 06/20/21 acetaminophen [Tylenol] 650 mg PO Q6H PRN PRN #0 tab 08/26/19 06/20/21 psyllium husk (aspartame) 1 packet PO QDAY 11/03/19 06/20/21 prazosin 2 mg capsule 2 mg PO HS #90 cap 01/08/20 06/20/21 pen needle, diabetic 33 gauge x #100 each 01/11/20 06/20/21 3/16 simvastatin 40 mg tablet 40 mg PO DAILY #90 tab 07/19/20 06/20/21 blood sugar diagnostic #100 each 10/14/20 06/20/21 donepezil 10 mg tablet 10 mg PO DAILY #90 tab 10/18/20 06/20/21 aspirin 325 mg PO DAILY #0 tab 11/14/20 06/20/21 melatonin 6 mg PO HS #0 tab 11/14/20 06/20/21 albuterol sulfate 90 mcg/actuation 2 puff INHALATION Q4H PRN PRN #1 12/12/20 06/20/21 aerosol inhaler inh pantoprazole 40 mg tablet,delayed 40 mg PO DAILY #90 tab 12/12/20 06/20/21 release sertraline 100 mg tablet 100 mg PO DAILY #90 tab 12/12/20 06/20/21 Lantus Solostar U-100 Insulin 28 unit SUBCUT DAILY 06/20/21 06/20/21 Procrit 10,000 unit SUBCUT QWEEK 06/20/21 06/20/21 bisacodyl [Dulcolax (bisacodyl)] 10 mg [place] DIRECTED PRN 06/20/21 06/20/21 ferrous sulfate 325 mg PO DAILY 06/20/21 06/20/21 furosemide 80 mg PO DAILY 06/20/21 06/20/21 gabapentin 300 mg PO TID 06/20/21 06/20/21 insulin lispro 10 unit SUBCUT DAILY 06/20/21 06/20/21 magnesium oxide 400 mg PO BID 06/20/21 06/20/21 memantine [Namenda] 5 mg PO DAILY 06/20/21 06/20/21 metolazone 2.5 mg PO DAILY 06/20/21 06/20/21 potassium chloride 20 meq PO DAILY 06/20/21 06/20/21 Previous Rx's Medication Instructions Recorded blood-glucose meter #1 each 01/22/19 acetaminophen [Tylenol] 650 mg PO Q6H PRN PRN #0 tab 08/26/19 prazosin 2 mg capsule 2 mg PO HS #90 cap 01/08/20 pen needle, diabetic 33 gauge x #100 each 01/11/2002/14 simvastatin 40 mg tablet 40 mg PO DAILY #90 tab 07/19/20 blood sugar diagnostic #100 each 10/14/20 donepezil 10 mg tablet 10 mg PO DAILY #90 tab 10/18/20 aspirin 325 mg PO DAILY #0 tab 11/14/20 melatonin 6 mg PO HS #0 tab 11/14/20 albuterol sulfate 90 mcg/actuation 2 puff INHALATION Q4H PRN PRN #1 12/12/20 aerosol inhaler inh pantoprazole 40 mg tablet,delayed 40 mg PO DAILY #90 tab 12/12/20 release sertraline 100 mg tablet 100 mg PO DAILY #90 tab 12/12/20 Allergies Allergy/AdvReac Type Severity Reaction Status Date / Time iodine Allergy Unknown Unverified 11/09/20 11:14 General Stated Complaint: Dizzy/Sync RASHEL: 3 Review of Systems <SERENE Cleaning - Last Filed: 06/21/21 08:44> Constitutional Constitutional: Reports as per HPI, Denies chills, Denies fever(s), Denies headache(s), Reports lethargy and Denies poor appetite Eyes Eyes: Denies change in vision ENT Ears, Nose, Mouth, and Throat: Denies dizziness and Denies headache(s) Cardiovascular Cardiovascular: Reports as per HPI, Denies dyspnea and Denies dyspnea on exertion Respiratory Respiratory: Reports as per HPI, Denies chest congestion, Denies cough, Denies pain on inspiration, Denies pain with cough, Denies dyspnea and Denies dyspnea on exertion Gastrointestinal Gastrointestinal: Reports as per HPI, Denies abdominal pain, Denies bloating, Denies hematochezia, Denies change in bowel habits, Denies change in stool character, Denies coffee ground emesis, Denies cramping, Denies diarrhea, Denies nausea and Denies vomiting Genitourinary Genitourinary: Denies hematuria Musculoskeletal Musculoskeletal: Reports as per HPI and Denies back pain Integumentary/Breasts Skin/Breast: Reports as per HPI and Denies rash Neurologic Neurologic: Reports as per HPI, Denies dizziness and Denies headache(s) PFSH <SERENE Cleaning - Last Filed: 06/21/21 08:44> Medical History (Updated 06/21/21 @ 05:05 by Alberto Weeks DO) Acute hypokalemia Anxiety Bilateral lower extremity edema worse than last visit Blistering of skin due to chronic pedal edema Dr Moulton managing diuretics; home health in to wrap legs Counseling regarding advance directives and goals of care would still be hospitalized but limited interventions and procedures, no ICU, no transfer doesn't mind SNF; liked her last stay at [facility] H and R Depression Diabetes mellitus Times 3 years. DNI (do not intubate) DNR (do not resuscitate) History of CVA (cerebrovascular accident) (12/02/91) a. 1991. History of DVT (deep vein thrombosis) a. History of right DVT and PE. b. IVC filter placed 40 years ago. Iatrogenic pulmonary embolism and infarction IVC clip-1974 Inappropriate behavior Lower extremity edema Mild cognitive impairment with memory loss Osteoarthrosis both hips, right greater than left Osteopenia Palliative care patient Panic attack POLST (Physician Orders for Life-Sustaining Treatment) DPOA lives in [place]; form done 03/23/20; very clearly DNR/DNI Rupture of tendon of biceps, long head (10/31/07) UTI (urinary tract infection) Surgical History History of bilateral salpingo-oophorectomy History of Surgical Procedure a. Cholecystectomy. b. Lysis of adhesions. c. Hysterectomy. d. Oophorectomy. Status post abdominal hysterectomy Status post breast biopsy Status post cholecystectomy Family History Son , age 52 Sudden cardiac arrest Father , killed by Nazis in front of her when she was 10 yo Murder Social History Smoking/Tobacco Use Status: Former Tobacco Use Tobacco: How many years used: 1 Second Hand Exposure: Yes Smoking risk assessment performed?: Yes Alcohol Intake: never Drug use: Never Substance use type: does not use Caregiver/Support person: No Household members: none Housing: apartment Number of Children: 1 number of grandchildren: 1 Communication Needs: Corrective Lenses Education Level: middle school Do you need help understanding health information?: Always 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 Pets and animals: No What is your relationship status?: How often do you talk on the phone with friends or family?: never How often do you get together with friends or relatives?: twice per week How often do you attend denominational or protestant services?: 4 or more times per year Panel score (0-1 are the most socially isolated patients): 1 What type of physical activity do you participate in: walking and irregular exercise Duration: < 15 minutes/day Frequency: 1-2 times per week Marielle/Rastafari: [employer] Special marielle needs: No Seatbelt use: always Water heater temp set <120 deg: Yes Working smoke detector in home: Yes Fire extinguisher in home: Yes Do you feel safe at home: Yes Do you feel safe in your relationship?: Yes Additional Social history: in 1998. Lives in [place]. Moved in 2012. Has one granddaughter, only living relative; granddaughter lives in [place]. Since fall, no longer as social. Used to sit on porch of [address] and greet people. Now staying to herself in her room. Not socializing in communal areas. She escaped [place] alone at the age of 16. 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 They had 1 son and then moved to the [place] as he was given the option as a concentration camp survivor. Exam <SERENE Cleaning - Last Filed: 06/21/21 08:44> Const General: cooperative, comfortable, no acute distress and well developed Nutritional Appearance: well nourished and overweight Orientation: alert, awake, oriented to person, oriented to place and not oriented to time [facility] Head: normal to inspection Mouth: mucous membranes dry (appears dry) Eyes Conjunctivae: conjunctival abnormality bilaterally pallor Chest Chest: normal inspection of the chest, normal palpation of entire chest wall and no crepitus Resp Effort & Inspection: normal respiratory effort, able to speak in complete sentences and no respiratory distress Auscultation: clear to auscultation bilaterally, no rales, no rhonchi and no wheezes Cardio Rate: regular rate Rhythm: regular rhythm Heart Sounds: murmur GI Inspection: normal to inspection, no edema and non-distended Palpation: soft, no hepatosplenomegaly, not firm, no guarding, not rigid and tender (LLQ) Auscultation: normal bowel sounds Rectal Exam - female: visual inspection normal, normal sphincter tone and No heme positive stool (rectal fault clean, unable to obtain good sample for hemoccult testing) Back/Spine/Pelvis Back/spine/pelvis image: 1. skin is pink, no break in the skin Skin General skin exam: erythema (BLE, appears chronic, blisters left lateral calf, chronic issue for patient) Neuro General: patient alert and patient awake Speech: speech normal Extrem General: normal to inspection, capillary refill normal and no calf tenderness Psych Appearance: grossly normal and well kempt Mental Status: mental status grossly normal Speech and Movement: speech and movement normal Course <SERENE Cleaning - Last Filed: 06/21/21 08:44> Vital Signs Vital signs: Vital Signs Temperature 36.7 C 06/20/21 20:35 Pulse 66 06/20/21 20:35 Respiratory Rate 17 06/20/21 20:35 Blood Pressure 107/35 L 06/20/21 20:35 Pulse Oximetry 93 06/20/21 20:35 Temperature 36.7 C 06/20/21 20:35 Temperature Source Temporal Artery Scan 06/20/21 20:35 Pulse 66 06/20/21 20:35 Respiratory Rate 17 06/20/21 20:35 Respiratory Effort Non-Labored 06/20/21 20:46 Respiratory Depth Normal 06/20/21 20:46 Blood Pressure 107/35 L 06/20/21 20:35 Blood Pressure Position Sitting 06/20/21 20:35 Pulse Oximetry 93 06/20/21 20:35 Pain Level 0 06/20/21 20:35
[2021-06-20 21:02] LABS: Abs Immature Grans 0.05 10^3/uL (0.0-0.06); Absolute Eosinophil Count 0.19 10^3/uL (0.0-0.7); Absolute Monocyte Count 0.87 10^3/uL (0.1-0.8); Absolute Neutrophil Count 9.17 10^3/uL (1.2-6.7); Basophils % 0.2; Eosinophils % 1.6; Immature Grans % 0.4; Lymphocytes % 14.9; MCH 27.5 pg (27.0-33.0); MCV 83.3 fL (80-95); Monocytes % 7.2; Neutrophils % 75.7; Nucleated RBC 0 %; Platelet Count 224 10^3/uL (130-400); RDW 16.4 % (11.7-14.6); WBC 12.11 10^3/uL (4.4-10.8)
[2021-06-20 21:16] LABS: Absolute Basophil Count 0.02 10^3/uL (0.0-0.2)
[2021-06-20 21:22] LABS: ALT 11 U/L (14-59); AST 11 U/L (15-37); Albumin 3.1 g/dL (3.4-5.0); Alkaline Phosphatase 106 U/L (46-116); Anion Gap 0.5 mmol/L (3-11); BUN 70 mg/dL (7-18); Bilirubin, Total 0.4 mg/dL (0.2-1.0); CO2 43.5 mmol/L (21.0-32.0); CREATININE 3.3 mg/dL (0.55-1.02); Calcium 8.7 mg/dL (8.5-10.1); Chloride 83 mmol/L (98-107); Estimated GFR 13.32 (mL/min/1.73m2); Glucose 94 mg/dL (74-106); HGB 6.6 g/dL (11.2-15.7); Sodium 127 mmol/L (136-145); Total Protein 7.4 g/dL (6.4-8.2)
[2021-06-20 21:29] LABS: Potassium 2.8 mmol/L (3.5-5.1)
[2021-06-20 21:33] LABS: Diff Comment Diff Reviewed
[2021-06-20] MEDS: Potassium Chloride 20 MEQ TABCR 40 MEQ PO (21:48)
[2021-06-20] MEDS: POTASSIUM CHLORIDE 20 MEQ/100 ML BAG 50 MEQ IVPB (21:48)
[2021-06-20 22:17] LABS: NT-proBNP 2811 pg/mL (<300)
--- NOTE | 2021-06-20 23:15 | NUR.NOTE ---
trf beginning.pt awake, vs stable. 1:1 monitoring for next 15 min :
[2021-06-21] VITALS (46 sets, daily range): BP systolic 59–139; BP diastolic 41–98; PULSE 59–92; RESP 10–28; TEMP 36.4–36.6; O2SAT 90–97
--- NOTE | 2021-06-21 04:31 | NUR.NOTE ---
pt resting comfortably. vs stable. 2nd unit prbc almost done infusing. pt tolerated well:
== END 2021-06-21 05:20 | disposition skilled nursing facility (03) ==
PROVIDERS: Emergency Provider Physician Assistant; PCP Nurse Practitioner Adult Health
DX: D64.9 Anemia, unspecified (principal); E87.6 Hypokalemia
CPT/HCPCS: 36430; 80053; 86850; 86900; 86901; 86920; 96365; 96366; 99285; 83880; 85025; 99284; J3480; P9016

== ENCOUNTER 2021-06-23 21:56 | Outpatient (REF) | payer MEDICARE, MEDICAID, SELFPAY ==
[2021-06-23 15:26] LABS: Anion Gap 1.9 mmol/L (3-11); BUN 56 mg/dL (7-18); CO2 42.1 mmol/L (21.0-32.0); Calcium 8.6 mg/dL (8.5-10.1); Chloride 83 mmol/L (98-107); Estimated GFR 14.87 (mL/min/1.73m2); Glucose 141 mg/dL (74-106); Sodium 127 mmol/L (136-145)
[2021-06-23 15:35] LABS: Potassium 2.7 mmol/L (3.5-5.1)
== END 2021-06-23 21:57 | disposition home or self-care (01) ==
LOC: LBN 21:56
PROVIDERS: PCP Nurse Practitioner Adult Health; Visit Provider Nurse Practitioner Family
DX: D64.9 Anemia, unspecified (principal); E11.9 Type 2 diabetes mellitus without complications
CPT/HCPCS: 80048

== ENCOUNTER 2021-06-24 20:36 | Outpatient (REF) | payer MEDICARE, MEDICAID, SELFPAY ==
[2021-06-24 21:12] LABS: Abs Immature Grans 0.04 10^3/uL (0.0-0.06); Absolute Basophil Count 0.04 10^3/uL (0.0-0.2); Absolute Lymphocyte Count 1.64 10^3/uL (1.2-3.4); Absolute Monocyte Count 0.84 10^3/uL (0.1-0.8); Absolute Neutrophil Count 9.83 10^3/uL (1.2-6.7); Basophils % 0.3; Eosinophils % 2.4; HGB 9.3 g/dL (11.2-15.7); Immature Grans % 0.3; Lymphocytes % 12.9; MCH 29.1 pg (27.0-33.0); MCHC 34.4 % (32.0-36.0); MCV 84.4 fL (80-95); MPV 8.3 fL (8.0-11.0); Monocytes % 6.6; Neutrophils % 77.5; Nucleated RBC 0 %; Platelet Count 275 10^3/uL (130-400); RDW 15.9 % (11.7-14.6); RDW-SD 49.5 fL; WBC 12.68 10^3/uL (4.4-10.8)
[2021-06-24 21:20] LABS: Anion Gap -0.9 mmol/L (3-11); BUN 55 mg/dL (7-18); CO2 39.9 mmol/L (21.0-32.0); CREATININE 3.1 mg/dL (0.55-1.02); Calcium 8.6 mg/dL (8.5-10.1); Chloride 84 mmol/L (98-107); Estimated GFR 14.31 (mL/min/1.73m2); Glucose 125 mg/dL (74-106); Magnesium 2.7 mg/dL (1.8-2.4)
[2021-06-24 21:44] LABS: Potassium 2.8 mmol/L (3.5-5.1); Sodium 123 mmol/L (136-145)
== END 2021-06-24 20:37 | disposition home or self-care (01) ==
LOC: LBN 20:36
PROVIDERS: PCP Nurse Practitioner Adult Health; Visit Provider Family Medicine
DX: E78.5 Hyperlipidemia, unspecified (principal); E11.9 Type 2 diabetes mellitus without complications; I50.9 Heart failure, unspecified; D64.9 Anemia, unspecified
CPT/HCPCS: 80048; 83735; 85025

== ENCOUNTER 2021-06-25 12:19 | Outpatient (REF) | payer MEDICARE, MEDICAID, SELFPAY ==
[2021-06-25 12:53] LABS: Anion Gap 0.6 mmol/L (3-11); BUN 55 mg/dL (7-18); CO2 43.4 mmol/L (21.0-32.0); CREATININE 3.2 mg/dL (0.55-1.02); Calcium 8.9 mg/dL (8.5-10.1); Chloride 85 mmol/L (98-107); Glucose 174 mg/dL (74-106); Sodium 129 mmol/L (136-145)
[2021-06-25 22:57] LABS: Anion Gap 2.4 mmol/L (3-11); BUN 55 mg/dL (7-18); CO2 40.6 mmol/L (21.0-32.0); CREATININE 3.1 mg/dL (0.55-1.02); Calcium 8.5 mg/dL (8.5-10.1); Chloride 85 mmol/L (98-107); Estimated GFR 14.31 (mL/min/1.73m2); Glucose 166 mg/dL (74-106); Potassium 3.2 mmol/L (3.5-5.1); Sodium 128 mmol/L (136-145)
== END 2021-06-25 12:20 | disposition home or self-care (01) ==
LOC: LBN 12:19
PROVIDERS: PCP Nurse Practitioner Adult Health; Visit Provider Nurse Practitioner Adult Health
DX: D64.9 Anemia, unspecified (principal); N18.9 Chronic kidney disease, unspecified
CPT/HCPCS: 80048

== ENCOUNTER 2021-06-26 16:30 | Outpatient (REF) | payer MEDICARE, MEDICAID, SELFPAY ==
[2021-06-26 18:42] LABS: Anion Gap -2.7 mmol/L (3-11); BUN 53 mg/dL (7-18); CO2 40.7 mmol/L (21.0-32.0); CREATININE 3.2 mg/dL (0.55-1.02); Calcium 8.9 mg/dL (8.5-10.1); Chloride 88 mmol/L (98-107); Glucose 126 mg/dL (74-106); Potassium 3.4 mmol/L (3.5-5.1); Sodium 126 mmol/L (136-145)
== END 2021-06-26 16:31 | disposition home or self-care (01) ==
LOC: LBN 16:30
PROVIDERS: PCP Nurse Practitioner Adult Health; Visit Provider Family Medicine
DX: R79.89 Other specified abnormal findings of blood chemistry (principal); E11.9 Type 2 diabetes mellitus without complications; I50.9 Heart failure, unspecified
CPT/HCPCS: 80048

== ENCOUNTER 2021-06-27 13:25 | Outpatient (REF) | payer MEDICARE, MEDICAID, SELFPAY ==
[2021-06-27 21:05] LABS: Anion Gap 3.7 mmol/L (3-11); BUN 48 mg/dL (7-18); CO2 40.3 mmol/L (21.0-32.0); Calcium 8.9 mg/dL (8.5-10.1); Chloride 88 mmol/L (98-107); Estimated GFR 14.87 (mL/min/1.73m2); Glucose 90 mg/dL (74-106); Potassium 3.8 mmol/L (3.5-5.1); Sodium 132 mmol/L (136-145)
== END 2021-06-27 13:26 | disposition home or self-care (01) ==
LOC: LBN 13:25
PROVIDERS: PCP Nurse Practitioner Adult Health; Visit Provider Nurse Practitioner Family
DX: D64.9 Anemia, unspecified (principal); N18.9 Chronic kidney disease, unspecified
CPT/HCPCS: 80048

== ENCOUNTER 2021-06-30 20:28 | Outpatient (REF) | payer MEDICARE, MEDICAID, SELFPAY ==
[2021-06-30 21:07] LABS: HCT 26.7 % (36.0-46.0); HGB 8.5 g/dL (11.2-15.7)
[2021-06-30 21:12] LABS: Anion Gap 4.7 mmol/L (3-11); BUN 41 mg/dL (7-18); CO2 36.3 mmol/L (21.0-32.0); CREATININE 2.8 mg/dL (0.55-1.02); Calcium 8.6 mg/dL (8.5-10.1); Chloride 95 mmol/L (98-107); Glucose 125 mg/dL (74-106); Potassium 3.7 mmol/L (3.5-5.1); Sodium 136 mmol/L (136-145)
== END 2021-06-30 20:29 | disposition home or self-care (01) ==
LOC: LBN 20:28
PROVIDERS: PCP Nurse Practitioner Adult Health; Visit Provider Nurse Practitioner Family
DX: D64.9 Anemia, unspecified (principal); N18.9 Chronic kidney disease, unspecified; E87.1 Hypo-osmolality and hyponatremia; E87.6 Hypokalemia
CPT/HCPCS: 80048; 85014; 85018

== ENCOUNTER 2021-07-07 13:41 | Outpatient (REF) | payer MEDICARE, MEDICAID, SELFPAY ==
[2021-07-07 14:17] LABS: HCT 25.1 % (36.0-46.0); HGB 7.9 g/dL (11.2-15.7)
[2021-07-07 14:44] LABS: D-Dimer 1642 ng/mlFEU (<500)
== END 2021-07-07 13:42 | disposition home or self-care (01) ==
LOC: LBN 13:41
PROVIDERS: PCP Nurse Practitioner Adult Health; Visit Provider Nurse Practitioner Family
DX: D51.8 Other vitamin B12 deficiency anemias (principal); D68.9 Coagulation defect, unspecified
CPT/HCPCS: 85014; 85018; 85379

== ENCOUNTER 2021-07-09 17:00 | Emergency (ER) | payer MEDICARE, MEDICAID, SELFPAY ==
[2021-07-09] VITALS (28 sets, daily range): BP systolic 124–131; BP diastolic 48–57; PULSE 68–78; RESP 16–23; TEMP 36.6; O2SAT 96–100
--- NOTE | 2021-07-09 17:00 | RT.EKG_ITS ---
APPROVED REPORT Exam: Resting ECG Reason for Exam: shortness of breath Patient Location: E HR:75 bpm ECG Measurements Heart Rate 75 AXIS HI 237 P 0 QRSd 102 QRS 22 QT 400 T 24 QTc 446 Conclusion Sinus rhythm...normal P axis, V-rate 60- 99 Atrial premature complex...SV complex w/ short R-R interval Prolonged HI interval...HI >220, V-rate 50- 90 Low voltage, precordial leads...precordial leads <1.0mV
--- NOTE | 2021-07-09 17:42 | DI.RAD_ITS ---
Exam(s) XR TIB/FIB LT EXAM: XR TIB/FIB LT CLINICAL HISTORY: pain and swelling. TECHNIQUE: 2D digital imaging was performed COMPARISON: No exams were available for comparison FINDINGS: BONES: No acute fracture is present. No bony destructive lesion is seen. Visualized portion of knee a nd ankle joints show degenerative changes. SOFT TISSUE: Soft tissue edema. Circumscribed soft tissue lesion anterior lateral mid leg. IMPRESSION: Soft tissue edema. Focal soft tissue protuberance. DATA REPOSITORY: RADIATION DOSE DELIVERED:
--- NOTE | 2021-07-09 18:15 | DI.RAD_ITS ---
Exam(s) XR PORTABLE CHEST AP EXAM: XR PORTABLE CHEST AP CLINICAL HISTORY: shortness of breath TECHNIQUE: 2D digital imaging was performed. COMPARISON: CR XR CHEST 2V PA LATERAL from 11/09/2020 FINDINGS: Exam is limited by semi-upright positioning. Lung bases are mildly obscured. Heart is mildly enlarg ed. There is prominent pulmonary vasculature, stable. No superimposed acute infiltrate, effusion or pulmonary edema is seen. No pneumothorax. Degenerative changes are noted in the spine and shoulder s. IMPRESSION: No acute pulmonary findings. DATA REPOSITORY: RADIATION DOSE DELIVERED:
[2021-07-09 18:20] LABS: Lactate 0.9 mmol/L (0.6-1.4)
[2021-07-09 18:27] LABS: Abs Immature Grans 0.03 10^3/uL (0.0-0.06); Absolute Eosinophil Count 0.31 10^3/uL (0.0-0.7); Absolute Lymphocyte Count 1.67 10^3/uL (1.2-3.4); Absolute Monocyte Count 0.64 10^3/uL (0.1-0.8); Basophils % 0.4; Eosinophils % 2.8; HCT 25.4 % (36.0-46.0); HGB 7.9 g/dL (11.2-15.7); Immature Grans % 0.3; Lymphocytes % 14.9; MCH 27.8 pg (27.0-33.0); MCHC 31.1 % (32.0-36.0); MCV 89.4 fL (80-95); MPV 8.3 fL (8.0-11.0); Monocytes % 5.7; Neutrophils % 75.9; Nucleated RBC 0 %; Platelet Count 232 10^3/uL (130-400); RBC 2.84 10^6/uL (3.93-5.22); RDW 17.1 % (11.7-14.6); WBC 11.24 10^3/uL (4.4-10.8)
[2021-07-09 18:32] LABS: Absolute Basophil Count 0.04 10^3/uL (0.0-0.2); Absolute Neutrophil Count 8.53 10^3/uL (1.2-6.7)
[2021-07-09 18:49] LABS: ALT 12 U/L (14-59); AST 11 U/L (15-37); Albumin 3.3 g/dL (3.4-5.0); Alkaline Phosphatase 106 U/L (46-116); Anion Gap 4.5 mmol/L (3-11); BUN 29 mg/dL (7-18); Bilirubin, Total 0.3 mg/dL (0.2-1.0); CO2 33.5 mmol/L (21.0-32.0); CREATININE 2.9 mg/dL (0.55-1.02); Calcium 8.7 mg/dL (8.5-10.1); Chloride 102 mmol/L (98-107); Estimated GFR 15.46 (mL/min/1.73m2); Glucose 102 mg/dL (74-106); NT-proBNP 2334 pg/mL (<300); Potassium 3.6 mmol/L (3.5-5.1); Sodium 140 mmol/L (136-145); Total Protein 7.3 g/dL (6.4-8.2)
--- NOTE | 2021-07-09 18:53 | DI.VRAD_ITS ---
PROCEDURE INFORMATION: Exam: XR Left Tibia and Fibula Exam date and time: 07/09/2021 5:15 PM Age: 86 years old Clinical indication: Pain; Lower leg; Left TECHNIQUE: Imaging protocol: XR Left tibia and fibula. Views: 2 views. COMPARISON: US EXTREMITY VENOUS BI 02/03/2020 11:18 AM FINDINGS: Bones/joints: Normal. Soft tissues: There is diffuse soft tissue edema. There is a soft tissue masslike protuberance measuring up to 3.3 x 6.5 cm in the anterolateral mid calf. IMPRESSION: 1. No acute fracture or dislocation. 2. Soft tissue edema. 3. Masslike soft tissue protuberance in the anterolateral mid calf. Correlate with the physical exam. Dictated and Authenticated by: Jesus Weaver MD. Ordering:JAZZY Agee MD
[2021-07-09 19:00] LABS: Troponin I < 0.05 ng/mL (<0.06)
--- NOTE | 2021-07-09 19:25 | DI.VRAD_ITS ---
PROCEDURE INFORMATION: Exam: XR Chest Exam date and time: 07/09/2021 6:29 PM Age: 86 years old Clinical indication: Shortness of breath TECHNIQUE: Imaging protocol: XR of the chest. Views: 1 view. COMPARISON: CR XR CHEST 2V PA LATERAL 11/09/2020 12:25 PM FINDINGS: Lungs: The right lung volume is low with elevation of right hemidiaphragm. There is stable prominence of right edgardo, probably due to prominent pulmonary vessels, unchanged. Pleural spaces: Unremarkable. No pleural effusion. No pneumothorax. Heart/Mediastinum: Cardiac silhouette is enlarged, unchanged. Bones/joints: No acute osseous abnormality. There is calcific tendinopathy in the right shoulder joint. IMPRESSION: No acute abnormality. Dictated and Authenticated by: Jesus Weaver MD. Ordering:JAZZY Agee MD
--- NOTE | 2021-07-09 19:38 | ED.GENADUL_ITS ---
Discharge Plan Disposition Patient Disposition: HOME Condition: Stable Discharge Details Clinical Impression: Cellulitis, Edema, peripheral, First degree heart block Primary Care Provider: Batsheva Kyle ED Provider: Cyndie Limon Home Meds and New Rx's Prescriptions: New cephalexin 500 mg tablet 500 mg PO BID 7 Days Qty: 14 RF: 0 Continued (DME) blood-glucose meter [OneTouch Ultra2 Meter] kit See Dose Instructions .ROUTE .MEDSUPPLY Qty: 1 RF: 0 (DME) lancets [Prodigy Lancets] 1 EACH misc 1 ea Miscellaneous BID Qty: 100 RF: 6 (DME) lancets [OneTouch Delica Lancets] 1 EACH misc 1 ea Miscellaneous BID Qty: 100 RF: 4 prazosin 2 mg capsule 2 mg PO HS Qty: 90 RF: 3 Hold Instructions: Home Medication placed on hold at Doctor's office (DME) Comfort EZ Pen [place] 33 gauge x 3/16 needle See Rx Instructions .ROUTE .MEDSUPPLY Qty: 100 RF: 4 simvastatin [Zocor] 40 mg tablet 40 mg PO DAILY Qty: 90 RF: 4 (DME) OneTouch Ultra Blue Test Strip Strip See Rx Instructions .ROUTE .MEDSUPPLY Qty: 100 RF: 4 donepezil 10 mg tablet 10 mg PO DAILY Qty: 90 RF: 4 albuterol sulfate [Ventolin HFA] 90 mcg/actuation HFA aerosol inhaler 2 puff Inhalation Q4H PRN PRN (Reason: shortness of breath or wheezing) Qty: 1 RF: 3 pantoprazole 40 mg tablet,delayed release (DR/EC) 40 mg PO DAILY Qty: 90 RF: 3 sertraline 100 mg tablet 100 mg PO DAILY Qty: 90 RF: 4 psyllium husk (aspartame) 3.5 gram Powder In Packet 1 packet PO QDAY RF: 0 aspirin 325 mg Tablet 325 mg PO DAILY Qty: 0 RF: 0 melatonin 3 mg Tablet Extended Release 6 mg PO HS Qty: 0 RF: 0 acetaminophen [Tylenol] 325 mg Tablet 650 mg PO Q6H PRN PRNQty: 0 RF: 0 bisacodyl [Dulcolax (bisacodyl)] 10 mg Suppository 10 mg [place] DIRECTED PRNRF: 0 Procrit 10,000 unit/mL solution 10,000 unit subcut QWEEK RF: 0 furosemide 40 mg tablet 80 mg PO DAILY RF: 0 metolazone 2.5 mg tablet 2.5 mg PO DAILY RF: 0 potassium chloride 20 mEq tablet,ER particles/crystals 20 meq PO DAILY RF: 0 magnesium oxide 400 mg (241.3 mg magnesium) tablet 400 mg PO BID RF: 0 ferrous sulfate 325 mg (65 mg iron) Tablet 325 mg PO DAILY RF: 0 gabapentin 100 mg capsule 300 mg PO TID RF: 0 insulin lispro 100 unit/mL solution 10 unit subcut DAILY RF: 0 memantine [Namenda] 5 mg Tablet 5 mg PO DAILY RF: 0 Lantus Solostar U-100 Insulin 100 unit/mL (3 mL) insulin pen 28 unit subcut DAILY RF: 0 Discharge Instructions Instructions: Cellulitis (ED) Additional Instructions: Elevate your leg Dressing changes once a day You will need wound care You are to take Keflex twice daily, this was been adjusted secondary to your kidney is Your hemoglobin and hematocrit are stable for you, however I do not feel comfortable giving you anticoagulation such as Eliquis unless you absolutely need it and I do not see any clinical evidence of pulmonary embolism blood clot in your lung at this time If you have an abnormal ultrasound tomorrow, I think consideration must be made regarding whether or not to anticoagulate you Please return should you have worsening shortness of breath, fever, chills, or should you have any new or worsening complaints Compression stockings recommended Discharge Data Discharge Date/Time-TO BE ENTERED AT DEPARTURE: 07/09/21 20:50 Medical Decision Making <SERENE Porter - Last Filed: 07/09/21 23:07> Patient is alert, oriented, of decisional capacity She is afebrile and nontoxic She does have a BNP which is elevated at 2300, this appears to be baseline for patient Troponin negative I did review her D-dimer and it was 1600 from several days prior Based on her clinical exam today, she has not hypoxic, not tachypneic, not t achycardic I do not think that she needs admission at this time I did discuss with her nurse at the rehab and we will initiate renally dosed Keflex She will also receive an ultrasound tomorrow Given her anemia I will not ordering a dose of Eliquis at this time as my suspicion for a DVT or pulmonary embolism is quite low and I think the risk outweighs the benefit Of note, she does have a first-degree heart block on her EKG She is asymptomatic with this She is requesting discharge home, she is alert, oriented, of decisional capacity, she seems to be at baseline otherwise and denies any acute chest pain or shortness of breath She discharged home stable condition with stable Chest x-ray does not show evidence of acute volume overload per radiology interpretation of my review Medical Records Medical records reviewed: Yes I reviewed the patient's medical records. Lab Data Lab results reviewed: Yes I reviewed the patient's lab results. ECG Data Prior ECG tracings: available for review <Larry Willoughby MD - Last Filed: 07/11/21 15:33> Patient seen, examined, and discussed with SERENE Limon. I recommended patient be started on keflex, renal dosed eliquis and return for LLE ultrasound tomorrow. I agree with treatment plan as discussed. HPI <SERENE Porter - Last Filed: 07/09/21 23:07> General Mode of arrival: ambulatory . Date/Time Provider Initiated Documentation: 07/09/21 17:03 . Limitations to Documentation: no limitations . Information obtained by: patient . HPI Narrative: This 86-year-old female with history of JAIMEE, venous stasis ulcers, insomnia, DVT, first-degree heart block, hypomagnesemia, leukocytosis, ventricular arrhythmias, hyperglycemia who presents with report of left leg pain. She states that her leg is more swollen. She was on Coumadin previously for DVT but states that this looks more like an infection to her especially with a blister. She states this is been going on for the past week. She states but she has occasional shortness of breath but denies any worsening symptoms within the past several weeks. She is unsure as to whether or not she had weight gain. She feels at her baseline and actually would like to go home. She denies any new medications. She was evaluated on Saturday and had D-dimer and basic blood work and was sent in with an elevated D- dimer. She denies any current chest pain. She denies any current shortness of breath. She denies any fever or chills. She has some mild pain over the blister site on her left leg. She has a history of infection in this area. Related Data Home Medications Medication Instructions Recorded Confirmed lancets [Prodigy Lancets] #100 ea 08/17/15 06/20/21 lancets [OneTouch Delica Lancets] #100 ea 03/22/16 06/20/21 blood-glucose meter #1 each 01/22/19 06/20/21 acetaminophen [Tylenol] 650 mg PO Q6H PRN PRN #0 tab 08/26/19 06/20/21 psyllium husk (aspartame) 1 packet PO QDAY 11/03/19 06/20/21 prazosin 2 mg capsule 2 mg PO HS #90 cap 01/08/20 06/20/21 pen needle, diabetic 33 gauge x #100 each 01/11/20 06/20/2102/14 simvastatin 40 mg tablet 40 mg PO DAILY #90 tab 07/19/20 06/20/21 blood sugar diagnostic #100 each 10/14/20 06/20/21 donepezil 10 mg tablet 10 mg PO DAILY #90 tab 10/18/20 06/20/21 aspirin 325 mg PO DAILY #0 tab 11/14/20 06/20/21 melatonin 6 mg PO HS #0 tab 11/14/20 06/20/21 albuterol sulfate 90 mcg/actuation 2 puff INHALATION Q4H PRN PRN #1 12/12/20 06/20/21 aerosol inhaler inh pantoprazole 40 mg tablet,delayed 40 mg PO DAILY #90 tab 12/12/20 06/20/21 release sertraline 100 mg tablet 100 mg PO DAILY #90 tab 12/12/20 06/20/21 Lantus Solostar U-100 Insulin 28 unit SUBCUT DAILY 06/20/21 06/20/21 Procrit 10,000 unit SUBCUT QWEEK 06/20/21 06/20/21 bisacodyl [Dulcolax (bisacodyl)] 10 mg WI DIRECTED PRN 06/20/21 06/20/21 ferrous sulfate 325 mg PO DAILY 06/20/21 06/20/21 furosemide 80 mg PO DAILY 06/20/21 06/20/21 gabapentin 300 mg PO TID 06/20/21 06/20/21 insulin lispro 10 unit SUBCUT DAILY 06/20/21 06/20/21 magnesium oxide 400 mg PO BID 06/20/21 06/20/21 memantine [Namenda] 5 mg PO DAILY 06/20/21 06/20/21 metolazone 2.5 mg PO DAILY 06/20/21 06/20/21 potassium chloride 20 meq PO DAILY 06/20/21 06/20/21 cephalexin 500 mg PO BID 7 Days #14 tab 07/09/21 Previous Rx's Medication Instructions Recorded blood-glucose meter #1 each 01/22/19 acetaminophen [Tylenol] 650 mg PO Q6H PRN PRN #0 tab 08/26/19 prazosin 2 mg capsule 2 mg PO HS #90 cap 01/08/20 pen needle, diabetic 33 gauge x #100 each 01/11/2002/14 simvastatin 40 mg tablet 40 mg PO DAILY #90 tab 07/19/20 blood sugar diagnostic #100 each 10/14/20 donepezil 10 mg tablet 10 mg PO DAILY #90 tab 10/18/20 aspirin 325 mg PO DAILY #0 tab 11/14/20 melatonin 6 mg PO HS #0 tab 11/14/20 albuterol sulfate 90 mcg/actuation 2 puff INHALATION Q4H PRN PRN #1 12/12/20 aerosol inhaler inh pantoprazole 40 mg tablet,delayed 40 mg PO DAILY #90 tab 12/12/20 release sertraline 100 mg tablet 100 mg PO DAILY #90 tab 12/12/20 cephalexin 500 mg PO BID 7 Days #14 tab 07/09/21 Allergies Allergy/AdvReac Type Severity Reaction Status Date / Time iodine Allergy Unknown Unverified 11/09/20 11:14 General Stated Complaint: Vascular RASHEL: 2 Review of Systems <SERENE Porter - Last Filed: 07/09/21 23:07> All systems reviewed & are unremarkable except as noted in HPI and below PFSH <SERENE Porter - Last Filed: 07/09/21 23:07> Medical History (Updated 07/09/21 @ 20:08 by SERENE Porter) Acute hypokalemia Anxiety Bilateral lower extremity edema worse than last visit Blistering of skin due to chronic pedal edema Dr Moulton managing diuretics; home health in to wrap legs Counseling regarding advance directives and goals of care would still be hospitalized but limited interventions and procedures, no ICU, no transfer doesn't mind SNF; liked her last stay at [facility] H and R Depression Diabetes mellitus Times 3 years. DNI (do not intubate) DNR (do not resuscitate) History of CVA (cerebrovascular accident) (12/02/91) a. 1991. History of DVT (deep vein thrombosis) a. History of right DVT and PE. b. IVC filter placed 40 years ago. Iatrogenic pulmonary embolism and infarction IVC clip-1974 Inappropriate behavior Lower extremity edema Mild cognitive impairment with memory loss Osteoarthrosis both hips, right greater than left Osteopenia Palliative care patient Panic attack POLST (Physician Orders for Life-Sustaining Treatment) DPOA lives in [place]; form done 03/23/20; very clearly DNR/DNI Rupture of tendon of biceps, long head (10/31/07) UTI (urinary tract infection) Surgical History History of bilateral salpingo-oophorectomy History of Surgical Procedure a. Cholecystectomy. b. Lysis of adhesions. c. Hysterectomy. d. Oophorectomy. Status post abdominal hysterectomy Status post breast biopsy Status post cholecystectomy Family History Son , age 52 Sudden cardiac arrest Father , killed by Nazis in front of her when she was 10 yo Murder Social History Smoking/Tobacco Use Status: Former Tobacco Use Tobacco: How many years used: 1 Second Hand Exposure: Yes Smoking risk assessment performed?: Yes Alcohol Intake: never Drug use: Never Substance use type: does not use Caregiver/Support person: No Household members: none Housing: apartment Number of Children: 1 number of grandchildren: 1 Communication Needs: Corrective Lenses Education Level: middle school Do you need help understanding health information?: Always 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 Pets and animals: No What is your relationship status?: How often do you talk on the phone with friends or family?: never How often do you get together with friends or relatives?: twice per week How often do you attend latter day or pentecostal services?: 4 or more times per year Panel score (0-1 are the most socially isolated patients): 1 What type of physical activity do you participate in: walking and irregular exercise Duration: < 15 minutes/day Frequency: 1-2 times per week Marielle/Pentecostal: Judaism Special marielle needs: No Seatbelt use: always Water heater temp set <120 deg: Yes Working smoke detector in home: Yes Fire extinguisher in home: Yes Do you feel safe at home: Yes Do you feel safe in your relationship?: Yes Additional Social history: in 1998. Lives in [place]. Moved in 2012. Has one granddaughter, only living relative; granddaughter lives in [facility] [place], no longer as social. Used to sit on porch of [facility] [employer] and greet people. Now staying to herself in her room. Not socializing in communal areas. She escaped [place] alone at the age of 16. 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 They had 1 son and then moved [place] the [place] as he was given the option as a co ncentration camp survivor. Exam <SERENE Porter - Last Filed: 07/09/21 23:07> Const General: cooperative and no acute distress HENMT Head: normal to inspection Mouth: oral mucosae normal Eyes Pupils: PERRL Resp Effort & Inspection: normal respiratory effort Auscultation: clear to auscultation bilaterally Cardio Rate: regular rate Rhythm: regular rhythm Skin General skin exam: no rashes or lesions noted Neuro General: patient alert and patient oriented x3 Extrem Other: Blister noted, 2 inch x 2 inch to left lateral calf, erythema, no lymphangitis, no crepitus, 2+ edema bilaterally, neurovascularly intact the Psych Appearance: grossly normal Course <SERENE Porter - Last Filed: 07/09/21 23:07> Vital Signs Vital signs: Vital Signs Temperature 36.6 C 07/09/21 17:01 Pulse 74 07/09/21 17:01 Respiratory Rate 20 07/09/21 17:01 Blood Pressure 130/52 L 07/09/21 17:01 Pulse Oximetry 99 07/09/21 17:01 Temperature 36.6 C 07/09/21 17:01 Temperature Source Skin 07/09/21 17:01 Pulse 74 07/09/21 17:01 Respiratory Rate 20 07/09/21 17:01 Blood Pressure 130/52 L 07/09/21 17:01 Pulse Oximetry 99 07/09/21 17:01 Oxygen Delivery Method Room Air 07/09/21 17:01 Oxygen Flow Rate 0 07/09/21 17:01 Pain Level 8 07/09/21 17:01 Lab/Test Results Lab/Test Results: 07/09/21 18:42 Blood Blood Culture - Pending 07/09/21 18:10 Blood Blood Culture - Pending Laboratory Tests Range/Units 07/09/21 07/09/21 07/09/21 18:10 18:10 18:10 WBC (4.4-10.8) 10^3/uL 11.24 H RBC (3.93-5.22) 10^6/uL 2.84 L Hgb (11.2-15.7) g/dL 7.9 L Hct (36.0-46.0) % 25.4 L MCV (80-95) fL 89.4 MCH (27.0-33.0) pg 27.8 MCHC (32.0-36.0) % 31.1 L RDW (11.7-14.6) % 17.1 H Plt Count (130-400) 10^3/uL 232 MPV (8.0-11.0) fL 8.3 Immature Gran % 0.3 Neutrophils % 75.9 Lymphocytes % 14.9 Monocytes % 5.7 Eosinophils % 2.8 Basophils % 0.4 Nucleated RBC % % 0 Absolute Neutrophils (1.2-6.7) 10^3/uL 8.53 H Absolute Lymphocytes (1.2-3.4) 10^3/uL 1.67 Absolute Monocytes (0.1-0.8) 10^3/uL 0.64 Absolute Eosinophils (0.0-0.7) 10^3/uL 0.31 Absolute Basophils (0.0-0.2) 10^3/uL 0.04 VBG Lactate (0.6-1.4) mmol/L 0.9 Sodium (136-145) mmol/L 140 Potassium (3.5-5.1) mmol/L 3.6 Chloride (98-107) mmol/L 102 Carbon Dioxide (21.0-32.0) mmol/L 33.5 H Anion Gap (3-11) mmol/L 4.5 BUN (7-18) mg/dL 29 H Creatinine (0.55-1.02) mg/dL 2.9 H Estimated GFR/1.73 m2 (mL/min/1.73m2) 15.46 Glucose (74-106) mg/dL 102 Calcium (8.5-10.1) mg/dL 8.7 Total Bilirubin (0.2-1.0) mg/dL 0.3 AST (15-37) U/L 11 L ALT (14-59) U/L 12 L Alkaline Phosphatase (46-116) U/L 106 Troponin I (<0.06) ng/mL < 0.05 NT-Pro-B Natriuret Pep (<300) pg/mL 2334 H Total Protein (6.4-8.2) g/dL 7.3 Albumin (3.4-5.0) g/dL 3.3 L
[2021-07-09] MEDS: Cephalexin 500 MG CAP PO (20:07)
== END 2021-07-09 20:50 | disposition home or self-care (01) ==
PROVIDERS: Emergency Provider Physician Assistant; PCP Nurse Practitioner Adult Health
DX: L03.116 Cellulitis of left lower limb (principal); R06.02 Shortness of breath; I44.0 Atrioventricular block, first degree; R60.9 Edema, unspecified; D64.9 Anemia, unspecified
CPT/HCPCS: 36415; 80053; 87040; 93005; 99284; 71045; 73590; 83605; 83880; 84484; 85025; 93010

== ENCOUNTER 2021-07-10 08:35 | Outpatient (CLI) | payer MEDICARE, MEDICAID, SELFPAY ==
--- NOTE | 2021-07-10 | DI.US_ITS ---
Exam(s) US LOWER EXTREMITY VENOUS LT EXAM: US LOWER EXTREMITY VENOUS LT CLINICAL HISTORY: LLE SWELLING AND REDNESS. TECHNIQUE: Lower extremity venous ultrasound performed using grayscale, color-flow, and spectral Do ppler analysis. COMPARISON: No exams were available for comparison FINDINGS: The exam is limited by bandage on the lower leg as well as limited patient cooperation. The common femoral vein through proximal femoral vein and profundus femoral vein as well as saphenofe moral junction appear clear of thrombus. The popliteal vein was not well seen due to some posterior swelling. Edema is noted in the subcutaneous fat of the lower leg. Calf veins were obscured by band age.. IMPRESSION: Limited exam. No evidence of proximal DVT. DATA REPOSITORY:
== END 2021-07-10 08:55 ==
PROVIDERS: PCP Nurse Practitioner Adult Health; Visit Provider Nurse Practitioner Adult Health
DX: R22.42 Localized swelling, mass and lump, left lower limb (principal); L98.8 Other specified disorders of the skin and subcutaneous tissue
CPT/HCPCS: 93971

== ENCOUNTER 2021-07-13 10:37 | Outpatient (REF) | payer MEDICARE, MEDICAID, SELFPAY ==
[2021-07-13 11:03] LABS: Anion Gap 5.1 mmol/L (3-11); BUN 32 mg/dL (7-18); CO2 31.9 mmol/L (21.0-32.0); CREATININE 3.3 mg/dL (0.55-1.02); Calcium 8.4 mg/dL (8.5-10.1); Chloride 104 mmol/L (98-107); Estimated GFR 13.32 (mL/min/1.73m2); Glucose 131 mg/dL (74-106); Sodium 141 mmol/L (136-145)
== END 2021-07-13 10:38 | disposition home or self-care (01) ==
LOC: LBN 10:37
PROVIDERS: PCP Nurse Practitioner Adult Health; Visit Provider Nurse Practitioner Family
DX: E11.9 Type 2 diabetes mellitus without complications (principal)
CPT/HCPCS: 80048

== ENCOUNTER 2021-07-14 16:18 | Outpatient (REF) | payer MEDICARE, MEDICAID, SELFPAY ==
[2021-07-14 16:15] LABS: HCT 24.3 % (36.0-46.0); HGB 7.4 g/dL (11.2-15.7)
== END 2021-07-14 16:19 | disposition home or self-care (01) ==
LOC: LBN 16:18
PROVIDERS: PCP Nurse Practitioner Adult Health; Visit Provider Nurse Practitioner Family
DX: D51.8 Other vitamin B12 deficiency anemias (principal)
CPT/HCPCS: 85014; 85018

== ENCOUNTER 2021-07-21 14:35 | Outpatient (REF) | payer MEDICARE, MEDICAID, SELFPAY ==
[2021-07-21 15:44] LABS: HGB 7.2 g/dL (11.2-15.7)
== END 2021-07-21 14:36 | disposition home or self-care (01) ==
LOC: LBN 14:35
PROVIDERS: PCP Nurse Practitioner Adult Health; Visit Provider Family Medicine
DX: D64.9 Anemia, unspecified (principal)
CPT/HCPCS: 85014; 85018

== ENCOUNTER 2021-07-28 12:21 | Outpatient (REF) | payer MEDICARE, MEDICAID, SELFPAY ==
[2021-07-28 14:03] LABS: HCT 23.9 % (36.0-46.0); HGB 7.2 g/dL (11.2-15.7)
== END 2021-07-28 12:22 | disposition home or self-care (01) ==
LOC: LBN 12:21
PROVIDERS: PCP Nurse Practitioner Adult Health; Visit Provider Family Medicine
DX: D64.9 Anemia, unspecified (principal)
CPT/HCPCS: 85014; 85018

== ENCOUNTER 2021-07-30 16:02 | Outpatient (REF) | payer MEDICARE, MEDICAID, SELFPAY ==
[2021-07-30 16:33] LABS: Abs Immature Grans 0.02 10^3/uL (0.0-0.06); Absolute Basophil Count 0.03 10^3/uL (0.0-0.2); Absolute Eosinophil Count 0.35 10^3/uL (0.0-0.7); Absolute Lymphocyte Count 1.34 10^3/uL (1.2-3.4); Absolute Monocyte Count 0.75 10^3/uL (0.1-0.8); Absolute Neutrophil Count 7.35 10^3/uL (1.2-6.7); Basophils % 0.3; Eosinophils % 3.6; HCT 23.1 % (36.0-46.0); Immature Grans % 0.2; Lymphocytes % 13.6; MCH 28.2 pg (27.0-33.0); MCHC 30.3 % (32.0-36.0); MCV 93.1 fL (80-95); Monocytes % 7.6; Neutrophils % 74.7; Nucleated RBC 0 %; Platelet Count 197 10^3/uL (130-400); RBC 2.48 10^6/uL (3.93-5.22); RDW 16.7 % (11.7-14.6); RDW-SD 57.1 fL; WBC 9.84 10^3/uL (4.4-10.8)
[2021-07-30 16:59] LABS: Anion Gap 6.9 mmol/L (3-11); BUN 35 mg/dL (7-18); CO2 31.1 mmol/L (21.0-32.0); CREATININE 3.2 mg/dL (0.55-1.02); Chloride 105 mmol/L (98-107); Glucose 149 mg/dL (74-106); NT-proBNP 2816 pg/mL (<300); Potassium 4.1 mmol/L (3.5-5.1); Sodium 143 mmol/L (136-145)
== END 2021-07-30 16:03 | disposition home or self-care (01) ==
LOC: LBN 16:02
PROVIDERS: PCP Nurse Practitioner Adult Health; Visit Provider Family Medicine
DX: I50.9 Heart failure, unspecified (principal)
CPT/HCPCS: 80048; 83880; 85025

== ENCOUNTER 2021-07-31 20:01 | Outpatient (REF) | payer MEDICARE, MEDICAID, SELFPAY ==
[2021-07-31 21:01] LABS: Bilirubin Negative (Negative); Blood Negative (Negative); Clarity Clear (Clear); Glucose Negative (Negative); Ketones Negative (Negative); Leukocyte Esterase Negative (Negative); Nitrite Negative (Negative); Urobilinogen 0.2 EU/dL (Up TO 0.2)
== END 2021-07-31 20:02 | disposition home or self-care (01) ==
LOC: LBN 20:01
PROVIDERS: PCP Nurse Practitioner Adult Health; Visit Provider Family Medicine
DX: R82.79 Other abnormal findings on microbiological examination of urine (principal)
CPT/HCPCS: 81003; 87086

== ENCOUNTER 2021-08-02 14:18 | Emergency (ER) | payer MEDICARE, MEDICAID, SELFPAY ==
[2021-08-02] VITALS (9 sets, daily range): BP systolic 117–142; BP diastolic 46–53; PULSE 89–91; RESP 12–18; TEMP 36.8; O2SAT 91–97
--- NOTE | 2021-08-02 14:30 | RT.EKG_ITS ---
APPROVED REPORT Exam: Resting ECG Reason for Exam: sob Patient Location: E HR:92 bpm ECG Measurements Heart Rate 92 AXIS SD 65 P 0 QRSd 97 QRS 32 QT 371 T 40 QTc 442 Conclusion Sinus rhythm Low voltage, precordial leads...precordial leads <1.0mV
--- NOTE | 2021-08-02 14:30 | DI.RAD_ITS ---
Exam(s) XR PORTABLE CHEST AP EXAM: XR PORTABLE CHEST AP CLINICAL HISTORY: SOB TECHNIQUE: 2D digital imaging was performed. COMPARISON: CR,XR XR PORTABLE CHEST AP from 07/09/2021 FINDINGS: LUNGS: Suboptimal inflation, otherwise clear. No pleural abnormality seen. HEART: Mildly enlarged. MEDIASTINUM: Stable prominent pulmonary vasculature. BONES: Degenerative changes. IMPRESSION: No acute pulmonary findings. DATA REPOSITORY: RADIATION DOSE DELIVERED:
--- NOTE | 2021-08-02 14:34 | ED.GENADUL_ITS ---
Discharge Plan Disposition Patient Disposition: SNF (LEVEL 1) [facility] Condition: Improving Discharge Details Clinical Impression: CHF exacerbation Primary Care Provider: Batsheva Kyle ED Provider: Michell Dennis Home Meds and New Rx's Prescriptions: New bumetanide 0.5 mg tablet 0.5 mg PO DAILY Qty: 7 RF: 0 Continued (DME) blood-glucose meter [OneTouch Ultra2 Meter] kit See Dose Instructions .ROUTE .MEDSUPPLY Qty: 1 RF: 0 (DME) lancets [Prodigy Lancets] 1 EACH misc 1 ea Miscellaneous BID Qty: 100 RF: 6 (DME) lancets [OneTouch Delica Lancets] 1 EACH misc 1 ea Miscellaneous BID Qty: 100 RF: 4 prazosin 2 mg capsule 2 mg PO HS Qty: 90 RF: 3 Hold Instructions: Home Medication placed on hold at Doctor's office (DME) Comfort EZ Pen [place] 33 gauge x 3/16 needle See Rx Instructions .ROUTE .MEDSUPPLY Qty: 100 RF: 4 simvastatin [Zocor] 40 mg tablet 40 mg PO DAILY Qty: 90 RF: 4 (DME) OneTouch Ultra Blue Test Strip Strip See Rx Instructions .ROUTE .MEDSUPPLY Qty: 100 RF: 4 albuterol sulfate [Ventolin HFA] 90 mcg/actuation HFA aerosol inhaler 2 puff Inhalation Q4H PRN PRN (Reason: shortness of breath or wheezing) Qty: 1 RF: 3 pantoprazole 40 mg tablet,delayed release (DR/EC) 40 mg PO DAILY Qty: 90 RF: 3 psyllium husk (aspartame) 3.5 gram Powder In Packet 1 packet PO QDAY RF: 0 aspirin 325 mg Tablet 325 mg PO DAILY Qty: 0 RF: 0 melatonin 3 mg Tablet Extended Release 6 mg PO HS Qty: 0 RF: 0 trazodone 50 mg Tablet 50 mg PO QHS RF: 0 spironolactone 25 mg Tablet 50 mg PO DAILY RF: 0 alprazolam [Xanax] 0.25 mg Tablet 0.25 mg PO DAILY PRNRF: 0 oxycodone 5 mg Capsule 5 mg PO Q4H RF: 0 morphine 15 mg Tablet 15 mg PO Q4H PRNRF: 0 melatonin 3 mg Capsule 6 mg PO HS RF: 0 donepezil 10 mg tablet 5 mg PO DAILY RF: 0 sertraline 100 mg tablet 50 mg PO DAILY RF: 0 acetaminophen [Tylenol] 325 mg Tablet 650 mg PO Q6H PRN PRNQty: 0 RF: 0 bisacodyl [Dulcolax (bisacodyl)] 10 mg Suppository 10 mg ND DIRECTED PRNRF: 0 Procrit 10,000 unit/mL solution 10,000 unit subcut QWEEK RF: 0 furosemide 40 mg tablet 80 mg PO DAILY RF: 0 metolazone 2.5 mg tablet 5 mg PO DAILY RF: 0 potassium chloride 20 mEq tablet,ER particles/crystals 20 meq PO DAILY RF: 0 magnesium oxide 400 mg (241.3 mg magnesium) tablet 400 mg PO BID RF: 0 ferrous sulfate 325 mg (65 mg iron) Tablet 325 mg PO DAILY RF: 0 gabapentin 100 mg capsule 300 mg PO TID RF: 0 insulin lispro 100 unit/mL solution 10 unit subcut DAILY RF: 0 memantine [Namenda] 5 mg Tablet 5 mg PO DAILY RF: 0 Lantus Solostar U-100 Insulin 100 unit/mL (3 mL) insulin pen 28 unit subcut DAILY RF: 0 Discharge Instructions Instructions: Heart Failure (ED) Additional Instructions: Your symptoms are improving here. Please try to avoid salty food. Please take the Bumex for the next 2 days as prescribed. Please follow-up at the end of the week or beginning of next week for reevaluation. If you develop any chest pain, shortness of breath or other new/worsening symptoms please seek care urgently once again. Referrals: Batsheva Kyle [Primary Care Provider] - Discharge Data Discharge Date/Time-TO BE ENTERED AT DEPARTURE: 08/02/21 20:57 Medical Decision Making <Paola Coon - Last Filed: 08/03/21 16:56> At this time cardiac work-up ordered including serial troponins, proBNP, chest x-ray, Covid swab. 1522: Spoke with patient's PCP at [facility] and rehab regarding patient case and details she reports patient is not on Lasix and has not been able to tolerate that in the past due to her kidney disease. She does take spironolactone 50 mg and with told his own 5 mg daily she reports approximately 15 pound weight gain since July 19. She also reports that she is not able to get into cardiology to assist with diuresis. She reports increasing shortness of breath over the last few days. Will consider Bumex as alternative to Lasix, CBC shows white blood cell count 11.01 hemoglobin 7.2 hematocrit 23.7 which is at patient baseline, BUN 35 creatinine 3.4 GFR 12.7 which is also consistent with patient's baseline and kidney disease. Magnesium is high at 5 proBNP is 4495 which is up from 2800, Covid is negative at this time. Bumex 1 mg IV ordered. Chest x-ray result is pending at this time. Care is handed off to oncoming provider SERENE Quick pending x-ray, repeat troponin and disposition. At this time I do presume that patient will be able to be discharged back to health and rehab. Patient was placed on cardiology follow-up list to assist in getting the patient in with cardiac rehab. <SERENE Cleaning - Last Filed: 08/02/21 23:56> Care transition myself from Adry Coon NP. Please see her initial note regarding history, presentation and exam. In brief, patient is a pleasant 86-year-old female who presented today with concern for lower extremity edema and increased shortness of breath. Patient was diagnosed with CHF exacerbation. BNP was over 4000. Patient received Bumex here. At the time I assumed care, repeat troponin pending as well as reevaluation of the patient. Repeat troponin remains less than 0.05. Patient is sitting up, appears alert and perky. No shortness of breath or difficulty breathing. She reports that she is feeling much improved after medical intervention. We will continue with this medication. Return precautions were discussed. She will follow-up with primary care in the next week for reevaluation. All of her questions and concerns were addressed and she is agreement this plan. HPI <Paola Coon - Last Filed: 08/03/21 16:56> General Mode of arrival: EMS . Date/Time Provider Initiated Documentation: 08/02/21 14:29 . Limitations to Documentation: no limitations . Information obtained by: patient, EMS, RN notes reviewed and old records reviewed . HPI Narrative: 86-year-old female presents to the ER via EMS with chief complaint of shortness of breath for the last couple of days increased fluid retention and swelling to her bilateral lower extremities. She does have chronic edema noted to her bilateral lower extremities. She is currently at [facility] and rehab. She takes 50 mg Spironolactalone and 5 mg of Metolazone. She reports weight gain recently. Does have a past medical history of depression, diabetes mellitus, chronic kidney disease, diastolic congestive heart failure, CVA Related Data Home Medications Medication Instructions Recorded Confirmed lancets [Prodigy Lancets] #100 ea 08/17/15 06/20/21 lancets [OneTouch Delica Lancets] #100 ea 03/22/16 06/20/21 blood-glucose meter #1 each 01/22/19 06/20/21 acetaminophen [Tylenol] 650 mg PO Q6H PRN PRN #0 tab 08/26/19 08/02/21 psyllium husk (aspartame) 1 packet PO QDAY 11/03/19 08/02/21 prazosin 2 mg capsule 2 mg PO HS #90 cap 01/08/20 08/02/21 pen needle, diabetic 33 gauge x #100 each 01/11/20 06/20/2102/14 simvastatin 40 mg tablet 40 mg PO DAILY #90 tab 07/19/20 08/02/21 blood sugar diagnostic #100 each 10/14/20 06/20/21 aspirin 325 mg PO DAILY #0 tab 11/14/20 08/02/21 melatonin 6 mg PO HS #0 tab 11/14/20 06/20/21 albuterol sulfate 90 mcg/actuation 2 puff INHALATION Q4H PRN PRN #1 12/12/20 08/02/21 aerosol inhaler inh pantoprazole 40 mg tablet,delayed 40 mg PO DAILY #90 tab 12/12/20 06/20/21 release Lantus Solostar U-100 Insulin 28 unit SUBCUT DAILY 06/20/21 08/02/21 Procrit 10,000 unit SUBCUT QWEEK 06/20/21 06/20/21 bisacodyl [Dulcolax (bisacodyl)] 10 mg ND DIRECTED PRN 06/20/21 08/02/21 ferrous sulfate 325 mg PO DAILY 06/20/21 08/02/21 furosemide 80 mg PO DAILY 06/20/21 06/20/21 gabapentin 300 mg PO TID 06/20/21 08/02/21 insulin lispro 10 unit SUBCUT DAILY 06/20/21 08/02/21 magnesium oxide 400 mg PO BID 06/20/21 06/20/21 memantine [Namenda] 5 mg PO DAILY 06/20/21 08/02/21 metolazone 5 mg PO DAILY 06/20/21 08/02/21 potassium chloride 20 meq PO DAILY 06/20/21 08/02/21 alprazolam [Xanax] 0.25 mg PO DAILY PRN 08/02/21 08/02/21 bumetanide 0.5 mg PO DAILY #7 tab 08/02/21 donepezil 5 mg PO DAILY 08/02/21 08/02/21 melatonin 6 mg PO HS 08/02/21 08/02/21 morphine 15 mg PO Q4H PRN 08/02/21 08/02/21 oxycodone 5 mg PO Q4H 08/02/21 08/02/21 sertraline 50 mg PO DAILY 08/02/21 spironolactone 50 mg PO DAILY 08/02/21 08/02/21 trazodone 50 mg PO QHS 08/02/21 08/02/21 Previous Rx's Medication Instructions Recorded blood-glucose meter #1 each 01/22/19 acetaminophen [Tylenol] 650 mg PO Q6H PRN PRN #0 tab 08/26/19 prazosin 2 mg capsule 2 mg PO HS #90 cap 01/08/20 pen needle, diabetic 33 gauge x #100 each 01/11/20 3/ simvastatin 40 mg tablet 40 mg PO DAILY #90 tab 07/19/20 blood sugar diagnostic #100 each 10/14/20 aspirin 325 mg PO DAILY #0 tab 11/14/20 melatonin 6 mg PO HS #0 tab 11/14/20 albuterol sulfate 90 mcg/actuation 2 puff INHALATION Q4H PRN PRN #1 12/12/20 aerosol inhaler inh pantoprazole 40 mg tablet,delayed 40 mg PO DAILY #90 tab 12/12/20 release bumetanide 0.5 mg PO DAILY #7 tab 08/02/21 Allergies Allergy/AdvReac Type Severity Reaction Status Date / Time iodine Allergy Unknown Unverified 08/02/21 14:27 General Stated Complaint: RespSymp RASHEL: 3 Review of Systems <Paola Coon - Last Filed: 08/03/21 16:56> All systems reviewed & are unremarkable except as noted in HPI and below PFSH <Paola Coon - Last Filed: 08/03/21 16:56> Medical History (Updated 08/02/21 @ 20:38 by SERENE Cleaning) Acute hypokalemia Anasarca Anxiety Bilateral lower extremity edema Blistering of skin due to chronic pedal edema Cardiorenal syndrome Chronic diastolic (congestive) heart failure CKD (chronic kidney disease), stage IV Counseling regarding advance directives and goals of care would still be hospitalized but limited interventions and procedures, no ICU, no transfer doesn't mind SNF; liked her last stay at [facility] Diabetes mellitus Times 3 years. DNI (do not intubate) DNR (do not resuscitate) History of CVA (cerebrovascular accident) (12/02/91) a. 1991. History of DVT (deep vein thrombosis) a. History of right DVT and PE. b. IVC filter placed 40 years ago. Iatrogenic pulmonary embolism and infarction IVC clip-1974 Inappropriate behavior Lower extremity edema Mild cognitive impairment with memory loss [facility] resident Osteoarthrosis both hips, right greater than left Osteopenia Palliative care patient Panic attack POLST (Physician Orders for Life-Sustaining Treatment) DPOA lives in [place]; form done 03/23/20; very clearly DNR/DNI Rupture of tendon of biceps, long head (10/31/07) UTI (urinary tract infection) Weight gain with edema gained 21 lbs in 18 days July 2021 Surgical History History of bilateral salpingo-oophorectomy History of Surgical Procedure a. Cholecystectomy. b. Lysis of adhesions. c. Hysterectomy. d. Oophorectomy. Status post abdominal hysterectomy Status post breast biopsy Status post cholecystectomy Family History (Updated 07/26/21 @ 20:15 by Maame Ramirez MD) Son , age 52 Sudden cardiac arrest Father , killed by Nazis in front of her when she was 10 yo Murder Granddaughter No problems noted. 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 Pets and animals: No What is your relationship status?: How often do you talk on the phone with friends or family?: never How often do you get together with friends or relatives?: twice per week How often do you attend samaritan or muslim services?: 4 or more times per year Panel score (0-1 are the most socially isolated patients): 1 What type of physical activity do you participate in: none, assisted ambulation and sedentary lifestyle Frequency: does not exercise Marielle/Hoahaoism: Moravian Special marielle needs: No Seatbelt use: always Water heater temp set <120 deg: Yes Working smoke detector in home: Yes Fire extinguisher in home: Yes Do you feel safe at home: Yes Do you feel safe in your relationship?: Yes Additional Social history: in 1998. Lived at [facility] from 2012 to 2020. Now lives at [facility] and very happy there. Has one granddaughter, only living relative; granddaughter lives in [place]. Since fall, no longer as social. She escaped [place] alone at the age of 16. 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 They had 1 son and then moved to the [place] as he was given the option as a concentration camp survivor. She likes her Rehab roommate. She can't move her WC on her own my arms get tired. Keeps to herself most of the time now. Exam <Paola Coon - Last Filed: 08/03/21 16:56> Narrative Exam Narrative: Constitutional: Alert and oriented x3. Appears stated age. Obese body habitus. Head: Normocephalic, no trauma. Eyes: Pupils PERRLA, Red reflex noted, EOM's intact. Eyelids symmetrical without lesions, discharge, or swelling. ENT: Bilateral TM's WNL, External ear normal to inspection, no mastoid TTP, swelling, or erythema, Nasal turbinates WNL, no nasal discharge. Normal dentition, Posterior pharynx WNL, no exudate. Chest: RRR, Normal S1, S2, distal pulses intact. Resp: Lungs clear to auscultation bilaterally, no wheezes, rales, or rhonchi. Abdomen: Soft, nontender to palpation. Musculoskeletal: Unable to assess gait. Bilateral lower extremities moderately to severely edematous. Compression Bandages noted to legs. Skin: No suspicious rashes or lesions. Capillary refill less than 2 sec. Neurologic: Cranial nerves II-XII intact. Alert and oriented x 3. Hematologic/Lymphatic: No ecchymosis, no lymphadenopathy. Course <Paola Coon - Last Filed: 08/03/21 16:56> Vital Signs Vital signs: Vital Signs Temperature 36.8 C 08/02/21 14:24 Pulse 89 08/02/21 14:24 Respiratory Rate 18 08/02/21 14:24 Blood Pressure 142/53 H 08/02/21 14:24 Pulse Oximetry 97 08/02/21 14:24 Temperature 36.8 C 08/02/21 14:24 Temperature Source Temporal Artery Scan 08/02/21 14:24 Pulse 89 08/02/21 14:24 Respiratory Rate 18 08/02/21 14:24 Respiratory Effort Non-Labored 08/02/21 14:27 Blood Pressure 142/53 H 08/02/21 14:24 Blood Pressure Position Sitting 08/02/21 14:24 Pulse Oximetry 97 08/02/21 14:24 Oxygen Delivery Method Room Air 08/02/21 14:24 Oxygen Flow Rate 0 08/02/21 14:24 Sign Out <Paola Coon - Last Filed: 08/03/21 16:56> Sign Out Data: Sign Out Comment: Hx CHF and Chronic Bilateral lower extremity edema. 15 lb weight gain over last 2 weeks, increased SOB. BNp greater than 4000. Probable DC Last updated by Paola Coon at 08/02/21 16:05
--- NOTE | 2021-08-02 15:00 | RT.EKG_ITS ---
APPROVED REPORT Exam: Resting ECG Reason for Exam: Repeat Patient Location: E HR:82 bpm ECG Measurements Heart Rate 82 AXIS MN 245 P 55 QRSd 100 QRS 38 QT 378 T 46 QTc 443 Conclusion Sinus rhythm Prolonged MN interval Low voltage, precordial leads.
[2021-08-02 15:07] LABS: Source Nasal/Nares
[2021-08-02 15:10] LABS: Abs Immature Grans 0.03 10^3/uL (0.0-0.06); Absolute Basophil Count 0.04 10^3/uL (0.0-0.2); Absolute Eosinophil Count 0.28 10^3/uL (0.0-0.7); Basophils % 0.4; Eosinophils % 2.5; HCT 23.7 % (36.0-46.0); HGB 7.2 g/dL (11.2-15.7); Immature Grans % 0.3; Lymphocytes % 11.8; MCH 28.3 pg (27.0-33.0); MCHC 30.4 % (32.0-36.0); MCV 93.3 fL (80-95); MPV 8.1 fL (8.0-11.0); Monocytes % 7.3; Neutrophils % 77.7; Nucleated RBC 0 %; Platelet Count 189 10^3/uL (130-400); RBC 2.54 10^6/uL (3.93-5.22); RDW 16.6 % (11.7-14.6); RDW-SD 57.2 fL; WBC 11.01 10^3/uL (4.4-10.8)
[2021-08-02 15:16] LABS: Absolute Neutrophil Count 8.55 10^3/uL (1.2-6.7); Diff Comment Diff Reviewed; Macrocytosis 1+
[2021-08-02 15:29] LABS: Magnesium 2.5 mg/dL (1.8-2.4)
[2021-08-02 15:39] LABS: ALT 14 U/L (14-59); AST 9 U/L (15-37); Albumin 3.3 g/dL (3.4-5.0); Alkaline Phosphatase 108 U/L (46-116); Anion Gap 3.7 mmol/L (3-11); BUN 35 mg/dL (7-18); Bilirubin, Total 0.3 mg/dL (0.2-1.0); CO2 34.3 mmol/L (21.0-32.0); CREATININE 3.4 mg/dL (0.55-1.02); Calcium 8.5 mg/dL (8.5-10.1); Chloride 101 mmol/L (98-107); Estimated GFR 12.87 (mL/min/1.73m2); Glucose 76 mg/dL (74-106); NT-proBNP 4495 pg/mL (<300); Potassium 4.5 mmol/L (3.5-5.1); Sodium 139 mmol/L (136-145); Total Protein 7.4 g/dL (6.4-8.2)
[2021-08-02 15:40] LABS: Troponin I < 0.05 ng/mL (<0.06)
[2021-08-02 15:59] LABS: COVID-19 PCR Negative (Negative)
[2021-08-02] MEDS: Bumetanide 1 MG/4 ML VIAL IVP (16:24)
[2021-08-02] MEDS: Normal Saline Flush 10 ML SYR IVP (16:25)
[2021-08-02 19:16] LABS: Troponin I < 0.05 ng/mL (<0.06)
--- NOTE | 2021-08-03 05:36 | NUR.NOTE ---
Referral faxed to [facility] Cardiology to f/u in a week for diastolic CHF.Nursing Note:
== END 2021-08-02 20:57 | disposition skilled nursing facility (03) ==
PROVIDERS: Registered Nurse Emergency; Emergency Provider Physician Assistant; PCP Nurse Practitioner Adult Health
DX: I50.33 Acute on chronic diastolic (congestive) heart failure (principal); R63.5 Abnormal weight gain; E83.41 Hypermagnesemia; R60.0 Localized edema; Z20.822 Contact with and (suspected) exposure to COVID-19; Z03.818 Encounter for observation for suspected exposure to other biological agents ruled out
CPT/HCPCS: 36415; 80053; 87635; 93005; 96374; 99285; 71045; 83735; 83880; 84484; 85025; 93010

== ENCOUNTER 2021-08-04 16:32 | Outpatient (REF) | payer MEDICARE, MEDICAID, SELFPAY ==
[2021-08-04 18:20] LABS: HCT 23.1 % (36.0-46.0)
[2021-08-04 19:26] LABS: ALT 21 U/L (14-59); AST 22 U/L (15-37); Albumin 3.3 g/dL (3.4-5.0); Alkaline Phosphatase 112 U/L (46-116); Anion Gap 8.2 mmol/L (3-11); BUN 45 mg/dL (7-18); Bilirubin, Total 0.3 mg/dL (0.2-1.0); CO2 30.8 mmol/L (21.0-32.0); Calcium 8.2 mg/dL (8.5-10.1); Chloride 98 mmol/L (98-107); Estimated GFR 11.32 (mL/min/1.73m2); Glucose 79 mg/dL (74-106); Potassium 4.8 mmol/L (3.5-5.1); Sodium 137 mmol/L (136-145); Total Protein 6.6 g/dL (6.4-8.2)
[2021-08-04 21:42] LABS: CREATININE 3.8 mg/dL (0.55-1.02)
== END 2021-08-04 16:33 | disposition home or self-care (01) ==
LOC: LBN 16:32
PROVIDERS: PCP Nurse Practitioner Adult Health; Visit Provider Nurse Practitioner Family
DX: D50.9 Iron deficiency anemia, unspecified (principal)
CPT/HCPCS: 80053; 85014; 85018

== ENCOUNTER 2021-08-11 15:50 | Outpatient (REF) | payer MEDICARE, MEDICAID, SELFPAY ==
[2021-08-11 16:36] LABS: ALT 19 U/L (14-59); AST 23 U/L (15-37); Albumin 3.3 g/dL (3.4-5.0); Alkaline Phosphatase 119 U/L (46-116); Anion Gap 5.4 mmol/L (3-11); BUN 46 mg/dL (7-18); Bilirubin, Total 0.3 mg/dL (0.2-1.0); CO2 32.6 mmol/L (21.0-32.0); Chloride 99 mmol/L (98-107); Estimated GFR 10.98 (mL/min/1.73m2); Glucose 201 mg/dL (74-106); Potassium 4.6 mmol/L (3.5-5.1); Sodium 137 mmol/L (136-145); Total Protein 6.5 g/dL (6.4-8.2)
[2021-08-11 16:40] LABS: CREATININE 3.9 mg/dL (0.55-1.02)
[2021-08-11 17:47] LABS: HCT 24.5 % (36.0-46.0); HGB 7.4 g/dL (11.2-15.7)
== END 2021-08-11 15:51 | disposition home or self-care (01) ==
LOC: NCHCN 15:50
PROVIDERS: PCP Nurse Practitioner Adult Health; Referring Provider Nurse Practitioner Family; Visit Provider Nurse Practitioner Family
DX: L03.116 Cellulitis of left lower limb (principal)
CPT/HCPCS: 80053; 83036; 85014; 85018

== ENCOUNTER 2021-09-06 07:14 | Emergency (ER) | payer MEDICARE, MEDICAID, SELFPAY ==
[2021-09-06 07:15] VITALS: BP 125/44; PULSE 79; RESP 16; O2SAT 93
--- NOTE | 2021-09-06 07:30 | DI.CT_ITS ---
Exam(s) CT HEAD WO EXAM: CT HEAD WO CLINICAL HISTORY: fall, frontal hematoma. TECHNIQUE: Imaging Protocol: Axial computed tomography images with coronal and sagittal reformatted images were created and reviewed COMPARISON: CT CT HEAD WO from 11/09/2020 FINDINGS: Ventricles and Extra axial spaces: Normal in size and morphology for the patient's age. Hemorrhage: None. Cerebral parenchyma: No acute territorial infarct. There are areas of decreased attenuation in the w jena matter most consistent with chronic microvascular ischemic disease. Midline shift: None. Brainstem/Cerebellum: Normal. Calvarium: Normal. Visualized Paranasal sinuses/Mastoids: Clear. There is a soft tissue mass in the posterior nasopharyn x grossly unchanged in appearance compared to the prior examination. Soft Tissues: There is a large scalp hematoma overlying the forehead. IMPRESSION: 1. No acute intracranial process or skull fracture. 2. Large scalp hematoma overlying the forehead. 3. Results of this exam have been verbally communicated with provider. RADIATION DOSE DELIVERED: 803.37mGy.cm Total DLP DATA REPOSITORY: All CT scans at this facility are submitted to the National Radiology Data Registry (NRDR) Dose Index Registry (DIR) with the [employer] (ACR). RADIATION OPTIMIZATION: All CT scans at this facility use at least one of these dose optimization te chniques: automated exposure control; mA and/or kV adjustment per patient size (includes targeted exa ms where dose is matched to clinical indication); or iterative reconstruction.
--- NOTE | 2021-09-06 07:30 | DI.RAD_ITS ---
Exam(s) XR HAND LT LIMITED EXAM: XR HAND LT LIMITED CLINICAL HISTORY: hospice patient, L 1st distal metacarpal pain. TECHNIQUE: 2D digital imaging was performed of the left hand. Three views were obtained. AP, later al and oblique views were obtained. COMPARISON: No exams were available for comparison FINDINGS: BONES: No acute fracture is present. No bony destructive lesion is seen. Osteopenic. JOINTS: No dislocation present. Degenerative changes are seen in the hand and wrist. SOFT TISSUE: Normal. IMPRESSION: No acute fracture or dislocation. DATA REPOSITORY: RADIATION DOSE DELIVERED:
--- NOTE | 2021-09-06 07:30 | DI.RAD_ITS ---
Exam(s) XR CHEST 1V IN DI DEPT EXAM: XR CHEST 1V IN DI DEPT CLINICAL HISTORY: fall, fronta;l impact, pain TECHNIQUE: 2D digital imaging was performed of the chest. One image was obtained. An AP view was ob tained. COMPARISON: CR XR PORTABLE CHEST AP from 08/02/2021 CR XR PORTABLE CHEST AP from 08/02/2021 FINDINGS: MEDIASTINUM: Normal. HEART: Stable cardiomegaly. PULMONARY VASCULATURE: Stable prominent pulmonary vasculature. LUNGS: Clear. PLEURAL SPACE: No pleural effusion or pneumothorax. BONE:Within normal limits for the patient's age. OTHER FINDINGS:Normal. IMPRESSION: No acute pulmonary findings. DATA REPOSITORY: RADIATION DOSE DELIVERED:
--- NOTE | 2021-09-06 07:46 | W.ED.GENAD ---
Discharge Plan Discharge Details Chief Complaint: Trauma Primary Care Provider: Batsheva Kyle ED Provider: Polo Davis Home Meds and New Rx's Prescriptions: No Action (DME) blood-glucose meter [OneTouch Ultra2 Meter] kit See Dose Instructions .ROUTE .MEDSUPPLY Qty: 1 RF: 0 meclizine 25 mg tablet 25 mg PO TID PRN (Reason: dizziness) Qty: 30 RF: 2 lorazepam 1 mg tablet 1 mg PO Q4H PRN (Reason: anxiety) Qty: 10 RF: 3 (DME) lancets [Prodigy Lancets] 1 EACH misc 1 ea Miscellaneous BID Qty: 100 RF: 6 (DME) lancets [OneTouch Delica Lancets] 1 EACH misc 1 ea Miscellaneous BID Qty: 100 RF: 4 prazosin 2 mg capsule 2 mg PO HS Qty: 90 RF: 3 Hold Instructions: Home Medication placed on hold at Doctor's office (DME) Comfort EZ Pen Oxford 33 gauge x 3/16 needle See Rx Instructions .ROUTE .MEDSUPPLY Qty: 100 RF: 4 simvastatin [Zocor] 40 mg tablet 40 mg PO DAILY Qty: 90 RF: 4 (DME) OneTouch Ultra Blue Test Strip Strip See Rx Instructions .ROUTE .MEDSUPPLY Qty: 100 RF: 4 albuterol sulfate [Ventolin HFA] 90 mcg/actuation HFA aerosol inhaler 2 puff Inhalation Q4H PRN PRN (Reason: shortness of breath or wheezing) Qty: 1 RF: 3 pantoprazole 40 mg tablet,delayed release (DR/EC) 40 mg PO DAILY Qty: 90 RF: 3 furosemide [Lasix] 40 mg tablet 40 mg PO DAILY Qty: 3 RF: 0 ondansetron 4 mg tablet,disintegrating 4 mg PO Q4H PRN PRN (Reason: nausea and vomiting) Qty: 30 RF: 0 lorazepam 1 mg tablet 1 mg PO Q4H PRN PRN (Reason: anxiety) Qty: 20 RF: 0 morphine concentrate 100 mg/5 mL (20 mg/mL) solution 5 - 20 mg PO Q1H PRN MDD 24 ml Qty: 30 RF: 0 psyllium husk (aspartame) 3.5 gram Powder In Packet 1 packet PO QDAY RF: 0 aspirin 325 mg Tablet 325 mg PO DAILY Qty: 0 RF: 0 melatonin 3 mg Tablet Extended Release 6 mg PO HS Qty: 0 RF: 0 trazodone 50 mg Tablet 50 mg PO QHS RF: 0 spironolactone 25 mg Tablet 50 mg PO DAILY RF: 0 alprazolam [Xanax] 0.25 mg Tablet 0.25 mg PO DAILY PRNRF: 0 oxycodone 5 mg Capsule 5 mg PO Q4H RF: 0 morphine 15 mg Tablet 15 mg PO Q4H PRNRF: 0 melatonin 3 mg Capsule 6 mg PO HS RF: 0 donepezil 10 mg tablet 5 mg PO DAILY RF: 0 sertraline 100 mg tablet 50 mg PO DAILY RF: 0 bumetanide 0.5 mg tablet 0.5 mg PO DAILY Qty: 7 RF: 0 acetaminophen [Tylenol] 325 mg Tablet 650 mg PO Q6H PRN PRNQty: 0 RF: 0 bisacodyl [Dulcolax (bisacodyl)] 10 mg Suppository 10 mg RI DIRECTED PRNRF: 0 Procrit 10,000 unit/mL solution 10,000 unit subcut QWEEK RF: 0 metolazone 2.5 mg tablet 5 mg PO DAILY RF: 0 potassium chloride 20 mEq tablet,ER particles/crystals 20 meq PO DAILY RF: 0 magnesium oxide 400 mg (241.3 mg magnesium) tablet 400 mg PO BID RF: 0 ferrous sulfate 325 mg (65 mg iron) Tablet 325 mg PO DAILY RF: 0 gabapentin 100 mg capsule 300 mg PO TID RF: 0 insulin lispro 100 unit/mL solution 10 unit subcut DAILY RF: 0 memantine [Namenda] 5 mg Tablet 5 mg PO DAILY RF: 0 Lantus Solostar U-100 Insulin 100 unit/mL (3 mL) insulin pen 28 unit subcut DAILY RF: 0 Medical Decision Making 86-year-old female with COVID-19, currently a comfort measures patient at local rehabilitation facility. She fell with frontal impact on level ground. Unclear if loss of consciousness, which she denies. She arrives to the ER stable, interactive, with blood pressure 125 approximately 60, pulse 79, oxygenating 93 to 94%. She is quite hard of hearing, particularly given negative pressure room and masking. Her neurologic exam is unremarkable. She does have a frontal hematoma in the left first MCP bruising. She is referred for two-view x-ray and CT of the head to help guide further comfort measures. HPI General Mode of arrival: ambulatory. Date/Time Provider Initiated Documentation: 09/06/21 07:34. Limitations to Documentation: no limitations. Information obtained by: patient. History of Present Illness 86 year old F presents to the emergency department with the chief complaint of Fall, frontal hematoma, and is localized to the head. Patient reports no radiation. Patient started experiencing this minute(s) and it has been constant. No relieving factors improve symptom(s), No exacerbating factors reported . Patient notes no other symptoms. and other (Left hand first metacarpal bruising). Related Data Home Medications Medication Instructions Recorded Confirmed lancets [Prodigy Lancets] #100 ea 08/17/15 08/10/21 lancets [OneTouch Delica Lancets] #100 ea 03/22/16 08/10/21 blood-glucose meter #1 each 01/22/19 08/10/21 acetaminophen [Tylenol] 650 mg PO Q6H PRN PRN #0 tab 08/26/19 08/10/21 psyllium husk (aspartame) 1 packet PO QDAY 11/03/19 08/10/21 prazosin 2 mg capsule 2 mg PO HS #90 cap 01/08/20 08/10/21 pen needle, diabetic 33 gauge x #100 each 01/11/20 08/10/2102/14 simvastatin 40 mg tablet 40 mg PO DAILY #90 tab 07/19/20 08/10/21 blood sugar diagnostic #100 each 10/14/20 08/10/21 aspirin 325 mg PO DAILY #0 tab 11/14/20 08/10/21 melatonin 6 mg PO HS #0 tab 11/14/20 08/10/21 albuterol sulfate 90 mcg/actuation 2 puff INHALATION Q4H PRN PRN #1 12/12/20 08/10/21 aerosol inhaler inh pantoprazole 40 mg tablet,delayed 40 mg PO DAILY #90 tab 12/12/20 08/10/21 release Lantus Solostar U-100 Insulin 28 unit SUBCUT DAILY 06/20/21 08/10/21 Procrit 10,000 unit SUBCUT QWEEK 06/20/21 08/10/21 bisacodyl [Dulcolax (bisacodyl)] 10 mg RI DIRECTED PRN 06/20/21 08/10/21 ferrous sulfate 325 mg PO DAILY 06/20/21 08/10/21 gabapentin 300 mg PO TID 06/20/21 08/10/21 insulin lispro 10 unit SUBCUT DAILY 06/20/21 08/10/21 magnesium oxide 400 mg PO BID 06/20/21 08/10/21 memantine [Namenda] 5 mg PO DAILY 06/20/21 08/10/21 metolazone 5 mg PO DAILY 06/20/21 08/10/21 potassium chloride 20 meq PO DAILY 06/20/21 08/10/21 alprazolam [Xanax] 0.25 mg PO DAILY PRN 08/02/21 08/10/21 bumetanide 0.5 mg PO DAILY #7 tab 08/02/21 08/10/21 donepezil 5 mg PO DAILY 08/02/21 08/10/21 melatonin 6 mg PO HS 08/02/21 08/10/21 morphine 15 mg PO Q4H PRN 08/02/21 08/10/21 oxycodone 5 mg PO Q4H 08/02/21 08/10/21 sertraline 50 mg PO DAILY 08/02/21 08/10/21 spironolactone 50 mg PO DAILY 08/02/21 08/10/21 trazodone 50 mg PO QHS 08/02/21 08/10/21 lorazepam 1 mg tablet 1 mg PO Q4H PRN #10 tab 08/11/21 08/11/21 meclizine 25 mg tablet 25 mg PO TID PRN #30 tab 08/11/21 08/11/21 furosemide 40 mg tablet 40 mg PO DAILY #3 tab 08/12/21 lorazepam 1 mg tablet 1 mg PO Q4H PRN PRN #20 tab 08/12/21 morphine concentrate 100 mg/5 mL 5 - 20 mg PO Q1H PRN #30 ml MDD 24 08/12/21 (20 mg/mL) oral solution ml ondansetron 4 mg disintegrating 4 mg PO Q4H PRN PRN #30 tab 08/12/21 tablet Previous Rx's Medication Instructions Recorded blood-glucose meter #1 each 02/21/19 acetaminophen [Tylenol] 650 mg PO Q6H PRN PRN #0 tab 08/26/19 prazosin 2 mg capsule 2 mg PO HS #90 cap 01/08/20 pen needle, diabetic 33 gauge x #100 each 01/11/20/ simvastatin 40 mg tablet 40 mg PO DAILY #90 tab 07/19/20 blood sugar diagnostic #100 each 10/14/20 aspirin 325 mg PO DAILY #0 tab 11/14/20 melatonin 6 mg PO HS #0 tab 11/14/20 albuterol sulfate 90 mcg/actuation 2 puff INHALATION Q4H PRN PRN #1 12/12/20 aerosol inhaler inh pantoprazole 40 mg tablet,delayed 40 mg PO DAILY #90 tab 12/12/20 release bumetanide 0.5 mg PO DAILY #7 tab 08/02/21 lorazepam 1 mg tablet 1 mg PO Q4H PRN #10 tab 08/11/21 meclizine 25 mg tablet 25 mg PO TID PRN #30 tab 08/11/21 furosemide 40 mg tablet 40 mg PO DAILY #3 tab 08/12/21 lorazepam 1 mg tablet 1 mg PO Q4H PRN PRN #20 tab 08/12/21 morphine concentrate 100 mg/5 mL 5 - 20 mg PO Q1H PRN #30 ml MDD 24 08/12/21 (20 mg/mL) oral solution ml ondansetron 4 mg disintegrating 4 mg PO Q4H PRN PRN #30 tab 08/12/21 tablet Allergies Allergy/AdvReac Type Severity Reaction Status Date / Time iodine Allergy Unknown Unverified 08/02/21 14:27 General Stated Complaint: Trauma RASHEL: 2 Review of Systems Narrative: Hard of hearing, and negative pressure room with masks on all providers, review of systems limited. Denies pain, denies headache PFSH Medical History Acute hypokalemia Anasarca Anxiety Bilateral lower extremity edema Blistering of skin due to chronic pedal edema Cardiorenal syndrome Chronic diastolic (congestive) heart failure CKD (chronic kidney disease), stage IV Counseling regarding advance directives and goals of care likes living at [facility]; sees staff as family Depression Diabetes mellitus Times 3 years. DNI (do not intubate) DNR (do not resuscitate) Encounter for hospice care discussion History of CVA (cerebrovascular accident) (12/02/91) a. 1991. History of DVT (deep vein thrombosis) a. History of right DVT and PE. b. IVC filter placed 40 years ago. Hospice care patient Iatrogenic pulmonary embolism and infarction IVC clip-1974 Inappropriate behavior Lower extremity edema Mild cognitive impairment with memory loss long term resident Osteoarthrosis both hips, right greater than left Osteopenia Palliative care patient Panic attack POLST (Physician Orders for Life-Sustaining Treatment) DPOA lives in [place]; form done 03/23/20; very clearly DNR/DNI Rupture of tendon of biceps, long head (10/31/07) UTI (urinary tract infection) Weight gain with edema gained 21 lbs in 18 days July 2021 Surgical History History of bilateral salpingo-oophorectomy History of Surgical Procedure a. Cholecystectomy. b. Lysis of adhesions. c. Hysterectomy. d. Oophorectomy. Status post abdominal hysterectomy Status post breast biopsy Status post cholecystectomy Family History Son , age 52 Sudden cardiac arrest Father , killed by Nazis in front of her when she was 10 yo Murder Granddaughter No problems noted. 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 Pets and animals: No What is your relationship status?: How often do you talk on the phone with friends or family?: never How often do you get together with friends or relatives?: twice per week How often do you attend oriental orthodox or anglican services?: 4 or more times per year Panel score (0-1 are the most socially isolated patients): 1 What type of physical activity do you participate in: none, assisted ambulation and sedentary lifestyle Frequency: does not exercise Marielle/Restorationism: Episcopal Special marielle needs: No Seatbelt use: always Water heater temp set <120 deg: Yes Working smoke detector in home: Yes Fire extinguisher in home: Yes Do you feel safe at home: Yes Do you feel safe in your relationship?: Yes Additional Social history: in 1998. Lived at [facility] from 2012 to 2020. Now lives at [facility] and very happy there. Has one granddaughter, only living relative; granddaughter lives in [place]. Since fall, no longer as social. She escaped [place] alone at the age of 16. 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 They had 1 son and then moved to the [place] as he was given the option as a concentration camp survivor. She likes her Rehab roommate. She can't move her WC on her own my arms get tired. Keeps to herself most of the time now. Exam Narrative Exam Narrative: GEN: awake, alert, oriented 3. Pleasant, well groomed, interactive. HEAD: Normocephalic, frontal hematoma that is tender, no underlying bony movement or pain, no midface pain or instability ENT: Mucous membranes moist, oropharynx unremarkable, teeth unremarkable, external ear exam unremarkable EYES: PERRL, EOMI NECK: Full ROM, no JOSIAH, no menigismus, nontender CHEST/RESP: Nontender, clear to auscultation bilateral, no wheeze/rhonchi/rales Back: Nontender, no step-off or deformity, no bruising. CARDIOVASCULAR: RRR, no murmur, rub beth. 2+ Rad pulse bilateral ABDOMEN: Soft, nontender, no mass. +Bowel sounds EXT: Full ROM, no edema, left distal first metacarpal dorsal bruising, full range of motion. No significant tenderness. Neuro: Grossly normal neurologic exam, conversant, interactive. Hard of hearing. Psych: Speech fluent, thoughts congruent, affect normal Course Vital Signs Vital signs: Vital Signs Pulse 79 09/06/21 07:15 Respiratory Rate 16 09/06/21 07:15 Blood Pressure 125/44 L 09/06/21 07:15 Pulse Oximetry 93 09/06/21 07:15 Pulse 79 09/06/21 07:15 Respiratory Rate 16 09/06/21 07:15 Respiratory Effort 09/06/21 07:32 Respiratory Depth Normal 09/06/21 07:32 Respiratory Pattern Normal 09/06/21 07:32 Blood Pressure 125/44 L 09/06/21 07:15 Blood Pressure Position Supine 09/06/21 07:15 Pulse Oximetry 93 09/06/21 07:15 Oxygen Delivery Method Room Air 09/06/21 07:15 Oxygen Flow Rate 0 09/06/21 07:15 Pain Level 3 09/06/21 07:32
== END 2021-09-06 08:58 | disposition skilled nursing facility (03) ==
PROVIDERS: Emergency Provider Emergency Medicine; PCP Nurse Practitioner Adult Health
DX: S60.222A Contusion of left hand, initial encounter (principal); S00.83XA Contusion of other part of head, initial encounter; R07.89 Other chest pain; W18.39XA Other fall on same level, initial encounter
CPT/HCPCS: 99284; 70450; 71045; 73120; 99283